=== PATIENT | female | born 1940 | race Caucasian/White ===

== ENCOUNTER → 2018-03-10 11:48 | Outpatient (CLI) | payer MEDICARE, OTHER, SELFPAY ==
[2018-03-10 12:15] LABS: Basophils % 0.2 % (0.1-2.0); Eosinophils # 0.2 K/mm3 (0.0-0.4); Eosinophils % 3.4 % (0.1-12.0); Hematocrit 40.7 % (37.0-47.0); Hemoglobin 12.8 g/dL (12.2-16.2); Lymphocytes # 1.5 K/mm3 (0.7-4.5); Mean Corpuscular HGB Conc 31.4 g/dL (31.8-35.4); Mean Corpuscular Hemoglobin 30.3 pg (27.0-31.2); Mean Corpuscular Volume 96.6 fl (81-99); Mean Platelet Volume 8.2 fl (7.4-10.4); Monocytes # 0.2 K/mm3 (0.1-1.0); Monocytes % 4.6 % (1.7-9.3); Neutrophils # 2.7 K/mm3 (1.8-7.8); Neutrophils % 58.7 % (37.0-80.0); Platelet Count 271 K/mm3 (142-424); Red Blood Count 4.22 M/mm3 (4.20-5.40); Red Cell Distribution Width 13.2 % (11.5-17.5); White Blood Count 4.6 K/mm3 (4.8-10.8)
[2018-03-10 12:46] LABS: Alanine Aminotransferase 19 U/L (12-78); Albumin Level 3.7 gm/dL (3.4-5.0); Albumin/Globulin Ratio 1.4 (1.1-1.8); Alkaline Phosphatase 76 U/L (46-116); Anion Gap 11.9 mEq/L (5-15); Aspartate Amino Transferase 10 U/L (15-37); Bilirubin,Total 0.3 mg/dL (0.2-1.0); Blood Urea Nitrogen 16 mg/dL (7-18); Calcium 8.7 mg/dL (8.5-10.1); Carbon Dioxide 29 mmol/L (21.0-32.0); Chloride 105 mmol/L (98-107); Chol/HDL Ratio 2.8 (1-3.5); Cholesterol 195 mg/dL (140-200); Creatinine,Serum 0.74 mg/dL (0.55-1.02); Estimated Glomerular Filt Rate 77 ml/min (>60); GFR (African American) 93 ML/MIN (>60); Globulin 2.7 gm/dl (1.3-3.2); Glucose 111 mg/dL (74-106); HDL Cholesterol 70 mg/dL (29-89); LDL Cholesterol 118 mg/dL (0-130); Potassium 3.9 mmoL/L (3.5-5.1); Sodium 142 mmol/L (136-145); Total Protein,Serum 6.4 gm/dL (6.4-8.2); Triglycerides 36 mg/dL (30-200); VLDL Cholesterol 7 mg/dL (0-40)
== END ==
PROVIDERS: Visit Provider Internal Medicine Adolescent Medicine
DX: E78.5 Hyperlipidemia, unspecified (principal); I10 Essential (primary) hypertension
CPT/HCPCS: 36415; 80053; 80061; 85025

== ENCOUNTER 2019-03-27 02:27 | Inpatient (IN) ==
[2019-03-27 03:04] LABS: Basophils % 0.4 % (0.1-2.0); Eosinophils # 0.3 K/mm3 (0.0-0.4); Eosinophils % 3.6 % (0.1-12.0); Hematocrit 43.6 % (37.0-47.0); Hemoglobin 13.7 g/dL (12.2-16.2); Lymphocytes # 2.8 K/mm3 (0.7-4.5); Mean Corpuscular HGB Conc 31.5 g/dL (31.8-35.4); Mean Corpuscular Volume 94.7 fl (81-99); Mean Platelet Volume 8.4 fl (7.4-10.4); Monocytes # 0.4 K/mm3 (0.1-1.0); Neutrophils # 4.2 K/mm3 (1.8-7.8); Neutrophils % 54.9 % (37.0-80.0); Platelet Count 316 K/mm3 (142-424); Red Cell Distribution Width 12.8 % (11.5-17.5); White Blood Count 7.7 K/mm3 (4.8-10.8)
[2019-03-27 03:18] LABS: Anion Gap 13.4 mEq/L (5-15); Blood Urea Nitrogen 16 mg/dL (7-18); Calcium 9.1 mg/dL (8.5-10.1); Carbon Dioxide 29 mmol/L (21.0-32.0); Chloride 104 mmol/L (98-107); Glucose 120 mg/dL (74-106); Sodium 143 mmol/L (136-145); Thyroid Stimulating Hormone 4.44 uIU/ml (0.358-3.740)
--- NOTE | 2019-03-27 03:18 | Emergency Department Note ---
ED Disposition Clinical Impression: Atrial fibrillation Qualifiers: Atrial fibrillation type: unspecified Qualified Code(s): I48.91 - Unspecified atrial fibrillation Disposition: Admitted As Inpatient Condition on Discharge: Good - Critical Care Critical Care Time: No Attestation: On 03/27/19, the high probability of a clinically significant, sudden or life threatening deterioration of the following system(s) required my full and direct attention, intervention and personal management. The time I documented below is in addition to time spent performing reported procedures but includes the following listed in this critical care notation. Medical Decision Making - Medical Records Medical records reviewed: Yes: I reviewed the patient's medical records. - Rod Inquiry Pt receiving controlled substance: No Vital Signs: 03/27/19 02:27 Temperature 97.7 F Temperature Source Oral Pulse Rate [Left Radial] 145 H Respiratory Rate 17 Blood Pressure [Right Arm] 157/118 H Blood Pressure Mean [Right Arm] 131 Blood Pressure Source [Right Arm] Automatic Cuff Blood Pressure Position [Right Arm] Sitting 02 Sat by Pulse Oximetry 98 Oxygen Delivery Method Room Air - Lab Data Lab results reviewed: Yes: I reviewed the patient's lab results. Lab Results 03/27/19 02:25: WBC 7.7, RBC 4.60, Hgb 13.7, Hct 43.6, MCV 94.7, MCH 29.8, MCHC 31.5 L, RDW 12.8, Plt Count 316, MPV 8.4, Neut % (Auto) 54.9, Lymph % (Auto) 36.0, [place] % (Auto) 5.0, Eos % (Auto) 3.6, Baso % (Auto) 0.4, Neut # (Auto) 4.2, Lymph # (Auto) 2.8, [place] # (Auto) 0.4, Eos # (Auto) 0.3, Baso # (Auto) 0.0, ESR 17 03/27/19 02:25: Sodium 143, Potassium 3.4 L, Chloride 104, Carbon Dioxide 29, Anion Gap 13.4, BUN 16, Creatinine 0.83, Estimated Creat Clear 50, Estimated GFR 67, Est GFR ( Amer) 81, Glucose 120 H, Calcium 9.1, Troponin I < 0.02, C- Reactive Protein < 0.2, TSH 4.44 H, Thyroxine (T4) 9.7 Result diagrams: 03/27/19 02:25 03/27/19 02:25 Orders (Tests/Meds): ED MEDICATIONS Generic Name Dose Route Start Last Admin Trade Name Freq PRN Reason Stop Dose Admin Diltiazem HCl 5 mg 03/27/19 02:45 03/27/19 02:49 Cardizem 100mg Adv IV 04/26/19 02:44 5 mg TITR AUDELIA Administration Sodium Chloride 1,000 mls @ 999 mls/hr 03/27/19 03:00 03/27/19 02:50 Sod Chlor 0.9% 1000ml Bag IV 03/27/19 04:00 999 mls/hr .Q1H1M AUDELIA Administration Discontinued Medications Generic Name Dose Route Start Last Admin Trade Name Freq PRN Reason Stop Dose Admin Diltiazem HCl 10 mg 03/27/19 02:40 03/27/19 02:40 Cardizem 25mg/5ml Vial IV 03/27/19 02:41 10 mg ONCE ONE Administration ORDERS Category Date Time Status XR chest 2V Stat Exams 03/27/19 02:38 Taken Troponin I Q3H Lab 03/27/19 05:45 Ordered Troponin I Q3H Lab 03/27/19 08:45 Ordered Urinalysis and Microscopic Stat Lab 03/27/19 02:37 Ordered - Radiology Data #1 Image(s): Chest Image Reviewed: Yes I reviewed the patient's radiology image Preliminary Findings: Normal/NAD - ECG Data Tracing #1 Arrhythmias present: afib Ischemic changes: non-specific ST-T wave changes - Physician Consults Physician Consulted: jake Reason -: Admission Arrhythmia/Palpitations HPI - General Chief Complaint: Arrhythmia/Palpitations Stated Complaint: palpations Time Seen by Provider: 03/27/19 03:18 Mode of Arrival: Ambulatory Source of Information: Patient, Spouse, Medical Record Limitations: No Limitations - History of Present Illness HPI narrative: new onset of palpitation which awoke pt MD complaint: rapid heart beat, irregular heart beat Onset (ago): hour(s) Duration: constant Severity: moderate Context: awoke with symptoms Associated symptoms: denies other symptoms - Related Data Home Medications Medication Instructions Recorded Confirmed aspirin 81 mg tablet,delayed 81 mg PO QDAY 04/06/17 03/27/19 release atenolol 50 mg tablet 50 mg PO QDAY 01/01/18 12/22/19 Benzonatate [Benzonatate 100mg 100 mg PO DAILY 03/27/19 03/27/19 cap] Fluticasone Propionate 16 gm NOSTRIL-B NEEDED PRN 03/27/19 03/27/19 Omeprazole 20 mg PO DAILY 03/27/19 03/27/19 levoFLOXacin [Levaquin 500mg 500 mg PO DAILY 03/27/19 03/27/19 tab] Allergies Allergy/AdvReac Type Severity Reaction Status Date / Time Sulfa (Sulfonamide Allergy Unknown Verified 03/27/19 02:47 Antibiotics) [SULFA (SULFONAMIDE ANTIBIOTICS)] Penicillins Allergy Verified 03/27/19 02:47 [facility] History - Hepatitis A Screen Drug use history?: No High risk sexual behaviors?: No History of sexually transmitted infection?: No Currently employed?: No Childcare worker?: No Do you have indoor plumbing?: Yes Do you have electricity?: Yes Attestation statement:: This patient has been screened for Hepatitis A risk factors. I have reviewed the patient's past medical history: Yes Medical History: Reports:: Gastroesophageal Reflux Disease(GERD), Hypertension Other Medical History: Reports: Arthritis Other Surgeries: Yes: Other (kidney stone ) - Social History Smoking Status: Never smoker Alcohol Intake: never Occupational Status: retired ROS Obtained: Yes All systems reviewed & no additional complaints - Constitutional Constitutional: Denies fever(s) - Eyes Eyes: Denies change in vision - ENT Ears, Nose, Mouth, and Throat: Denies sore throat - Cardiovascular Cardiovascular: Denies chest pain, Denies dyspnea, Reports rapid heart rate - Respiratory Respiratory: No cough - Gastrointestinal Gastrointestingal: Denies: abdominal pain - Genitourinary Female Genitourinary: Denies hematuria - Musculoskeletal Musculoskeletal: Denies joint pain, Denies joint swelling - Integumentary/Breasts Skin/Breast: Denies rash - Neurologic Neurologic: Denies seizure-like activity Physical Exam - General General appearance: alert, in no apparent distress - Head Head exam: normocephalic - Eye Eye exam: Present: PERRL, EOMI. Absent: scleral icterus - ENT ENT exam: Present: mucous membranes dry - Neck Neck exam: Present: full ROM, trachea midline - Respiratory Respiratory exam: Present: normal lung sounds bilaterally, respiratory distress - Cardiovascular Cardiovascular exam: Present: irregular rhythm, systolic murmur, +S4 - Abdominal Exam Abdominal exam: Present: soft - Extremities Exam Extremities exam: Present: full ROM - Neurological Exam Neurological exam: Present: alert, oriented X3, CN II-XII intact - Psychiatric Psychiatric exam: Present: normal affect - Skin Skin exam: Absent: rash
[2019-03-27 03:24] LABS: C-Reactive Protein < 0.2 mg/dL (0.0-0.9)
[2019-03-27 03:27] LABS: Erythrocyte Sedimentation Rate 17 mm/hr (0-30)
--- NOTE | 2019-03-27 08:55 | History & Physical Report ---
*Admission Date: 03/27/19 *Chief complaint: Chest tightness and palpitation *History of present illness: 78-year-old extremely healthy white female who was in her normal state of health over the past week until I saw her Thursday and diagnosed her with cystitis and upper respiratory infection. Placed on levofloxacin for the cystitis and she felt very well over the next couple of days. In fact she notes her throat feels better as well. Went to bed last night around 11 PM feeling normally, but was awakened around 1:30 AM with chest tightness and pain and had a rapid heart rate. [place] extremely unwell and presented to the emergency department. In the ER was found to have atrial fibrillation with rapid ventricular response. Placed on diltiazem drip, transferred to the stepdown unit. This morning she feels better as her heart rate is down in the 80-90 range. Remains in atrial fibrillation. Denies any recent alcohol intake. Denies changes in cardiac function, swelling, pain, or palpitations other than the events of this morning. Has been through a lot of stress with the of a close family member this week. [facility] History I have reviewed the patient's past medical history: Yes Medical History: Reports:: Gastroesophageal Reflux Disease(GERD), Hypertension Denies:: Cancer, Diabetes Mellitus Type 1, Diabetes Mellitus Type 2 *Have you ever received a pneumonia vaccine?: No *Have you received a flu vaccine this season?: No Other Medical History: Reports: Arthritis Comment:: History of pericardial effusion in 2011 but asymptomatic since that time. Negative nuclear medicine stress testing done secondary to dyspnea on exertion in 2017 Laterality Cases: Bilateral: Tonsillectomy Other Surgeries: Yes: Colonoscopy, Other (kidney stone ) - *Social History Educational Level: Completed High School Smoking Status: Never smoker Alcohol Intake: current Alcohol Intake Frequency:: a few times a month *Occupational Status:: retired Housing: house Household Members: spouse *Travel in the last 8 weeks: None Family Hx:: Anemia, Cancer, Hypertension, Kidney Disease, Tuberculosis Review of Systems - Review of Systems Review of systems:: pertinent systems reviewed and negative unless documented below Patient feels completely normal this morning. 10 point review of systems reviewed and negative. - *Neurologic Denies seizure-like activity Meds Home Medications Medication Instructions Recorded Confirmed Type aspirin 81 mg tablet,delayed 81 mg PO QDAY 04/06/17 03/27/19 History release atenolol 50 mg tablet 50 mg PO QDAY 04/06/17 03/27/19 History Benzonatate [Benzonatate 100mg 100 mg PO Q8 03/27/19 03/27/19 History cap] Fluticasone Propionate 16 gm NOSTRIL-B NEEDED PRN 03/27/19 03/27/19 History Omeprazole 20 mg PO DAILY 03/27/19 03/27/19 History Psyllium Husk [Metamucil] 425 gm PO DAILY 03/27/19 03/27/19 History levoFLOXacin [Levaquin 500mg 500 mg PO DAILY 03/27/19 03/27/19 History tab] Allergies Allergy/AdvReac Type Severity Reaction Status Date / Time Penicillins Allergy Intermediate EDEMA Verified 03/27/19 05:23 Sulfa (Sulfonamide Allergy Unknown Verified 03/27/19 05:23 Antibiotics) [SULFA (SULFONAMIDE ANTIBIOTICS)] Exam Vital signs and Labs for Last 24 Hours: Temp Pulse Resp BP Pulse Ox 98.4 F 100 H 18 132/69 97 03/27/19 07:00 03/27/19 07:00 03/27/19 07:00 03/27/19 07:00 03/27/19 07:00 Laboratory Results - last 24 hr 03/27/19 02:25: WBC 7.7, RBC 4.60, Hgb 13.7, Hct 43.6, MCV 94.7, MCH 29.8, MCHC 31.5 L, RDW 12.8, Plt Count 316, MPV 8.4, Neut % (Auto) 54.9, Lymph % (Auto) 36.0, [place] % (Auto) 5.0, Eos % (Auto) 3.6, Baso % (Auto) 0.4, Neut # (Auto) 4.2, Lymph # (Auto) 2.8, [place] # (Auto) 0.4, Eos # (Auto) 0.3, Baso # (Auto) 0.0, ESR 17 03/27/19 02:25: Sodium 143, Potassium 3.4 L, Chloride 104, Carbon Dioxide 29, Anion Gap 13.4, BUN 16, Creatinine 0.83, Estimated Creat Clear 50, Estimated GFR 67, Est GFR ( Amer) 81, Glucose 120 H, Calcium 9.1, Troponin I < 0.02, C- Reactive Protein < 0.2, TSH 4.44 H, Thyroxine (T4) 9.7 03/27/19 05:45: Troponin I 0.03 I & O for Last 24 hours: Intake & Output 03/24/19 03/25/19 03/26/19 03/27/19 11:59 11:59 11:59 11:59 Intake Total 240 / 240 Balance 240 / 240 Weight 147 lb 9 oz - Constitutional no acute distress, thin Comments: Appears younger than stated age - *Routine HEENT Exam Head: Present: normocephalic Eye: Present: EOMI, PERRL ENT: Present: mucous membranes moist - *Routine Neck Exam Present: supple. Absent: lymphadenopathy - *Routine Respiratory Exam Present: CTA bilaterally - *Routine Cardiovascular Exam Present: Normal S1, Normal S2, irregular rhythm - *Routine Abdominal Exam Present: soft, normoactive bowel sounds. Absent: tenderness - *Routine Extremities Exam Absent: cyanosis, clubbing, edema - *Routine Skin Exam Present: warm. Absent: rash - *Routine Neurological Exam Present: alert, oriented X3 - Detailed Eye Exam Eyelids: Left normal inspection Assessment and Plan (1) Atrial fibrillation Current visit: Yes Status: Acute Qualifiers: Atrial fibrillation type: unspecified Qualified Code(s): I48.91 - Unspecified atrial fibrillation Category: Medical Code(s): I48.91 - Unspecified atrial fibrillation Rate controlled currently. I have given orders to nursing staff in regards to transitioning to p.o. Cardizem if patient transitions into sinus rhythm. Begin anticoagulation therapy with Eliquis today. Echocardiogram tomorrow given her history of pericardial effusion although clinically she has no signs or symptoms and EKG is not indicative of this problem. Reviewed thyroid labs, electrolytes. Add vitamin B12 levels to lab.
--- NOTE | 2019-03-27 08:57 | Electrocardiograph Report ---
APPROVED REPORT Exam: Resting ECG HR:149 bpm ECG Measurements Heart Rate 149 AXES QRSd 78 QRS 56 QT 256 T247 QTc 403 <Conclusion> Atrial fibrillation with rapid ventricular response STTW changes secondary to rate Abnormal ECG Electronically signed by : Allen Love, 03/27/2019 08:57:22
[2019-03-27 09:17] LABS: Anion Gap 14.6 mEq/L (5-15); Calcium 8.6 mg/dL (8.5-10.1)
[2019-03-27 09:21] LABS: Basophils % 0.3 % (0.1-2.0); Eosinophils # 0.1 K/mm3 (0.0-0.4); Eosinophils % 1.5 % (0.1-12.0); Hematocrit 41.1 % (37.0-47.0); Hemoglobin 13.5 g/dL (12.2-16.2); Lymphocytes # 1.5 K/mm3 (0.7-4.5); Lymphocytes % 23.7 % (10-50); Mean Corpuscular HGB Conc 32.8 g/dL (31.8-35.4); Mean Corpuscular Volume 95.2 fl (81-99); Mean Platelet Volume 8.7 fl (7.4-10.4); Monocytes # 0.3 K/mm3 (0.1-1.0); Monocytes % 4.4 % (1.7-9.3); Neutrophils # 4.5 K/mm3 (1.8-7.8); Neutrophils % 70.1 % (37.0-80.0); Platelet Count 300 K/mm3 (142-424); Red Blood Count 4.31 M/mm3 (4.20-5.40); Red Cell Distribution Width 12.8 % (11.5-17.5); White Blood Count 6.4 K/mm3 (4.8-10.8)
--- NOTE | 2019-03-27 10:29 | Pharmacy Consult Notes ---
[facility] Pharmacy VTE Monitoring - Patient Demographics Admission date: 03/27/19 Report Date: 03/27/19 Time: 10:28 Allergies/Adverse Reactions: Patient Allergies Penicillins Allergy (Intermediate, Verified 03/27/19 05:23) EDEMA Sulfa (Sulfonamide Antibiotics) [SULFA (SULFONAMIDE ANTIBIOTICS)] Allergy (Unknown, Verified 03/27/19 05:23) Height: 1.65 m Weight: 66.933 kg Patient Problems: Current Active Problems Atrial fibrillation (Acute) - VTE Risk Labs: VTE Related Lab Results Hgb 13.5 g/dL (12.2-16.2) 03/27/19 08:45 Hct 41.1 % (37.0-47.0) 03/27/19 08:45 Plt Count 300 K/mm3 (142-424) 03/27/19 08:45 BUN 12 mg/dL (7-18) 03/27/19 08:45 Creatinine 0.87 mg/dL (0.55-1.02) 03/27/19 08:45 Estimated Creat Clear 51 mL/min (50-200) 03/27/19 08:45 VTE Score: 3 VTE Risk Level: Low Risk - Prophylaxis VTE Prophylaxis Ordered?: Yes Types of VTE Prophylaxis: TEDS Knee High, Pharmacological (ELIQUIS) Location of Applied Device: Bilateral Lower Extremeties Pharmacologic Type: Other (ELIQUIS)
[2019-03-27 10:32] LABS: Microscopic, Urine URINE MICROSCOPIC (MICROSCOPIC)
[2019-03-27 10:38] LABS: Appearance,Urine CLEAR (Clear); Bilirubin,Urine Negative (Negative); Blood, Urine TRACE-I (Negative); Color,Urine YELLOW (Yellow); Glucose,Urine (UA) Negative (Negative); Ketones,Urine Negative (Negative); Leukocyte Esterase,Urine Negative (Negative); PH,Urine 7.5 (5.0-8.5); Protein,Urine Negative (Negative); Specific Gravity, Urine 1.015 (1.005-1.030); Urobilinogen,Urine 0.2 EU/dl (0.2)
[2019-03-27 10:44] LABS: WBC,Urine Occasional #/hpf (0-3)
--- NOTE | 2019-03-28 08:47 | Discharge Summary ---
General - General Admission date:: 03/27/19 Discharge date: 03/28/19 HPI HPI: 78-year-old extremely healthy white female who was in her normal state of health over the past week until I saw her Thursday and diagnosed her with cystitis and upper respiratory infection. Placed on levofloxacin for the cystitis and she felt very well over the next couple of days. In fact she notes her throat feels better as well. Went to bed last night around 11 PM feeling normally, but was awakened around 1:30 AM with chest tightness and pain and had a rapid heart rate. [place] extremely unwell and presented to the emergency department. In the ER was found to have atrial fibrillation with rapid ventricular response. Placed on diltiazem drip, transferred to the stepdown unit. This morning she feels better as her heart rate is down in the 80-90 range. Remains in atrial fibrillation. Denies any recent alcohol intake. Denies changes in cardiac function, swelling, pain, or palpitations other than the events of this morning. Has been through a lot of stress with the of a close family member this week. Hospital Course Hospital Course: Patient was admitted and converted to sinus rhythm after several hours of diltiazem infusions. Transitioned over to p.o. diltiazem yesterday and tolerated this well. Good control of heart rate and remained in sinus rhythm. She tolerated Eliquis therapy well. Echocardiogram this morning was done, preliminary report shows good ejection fraction, normal left atrial chamber size. She remains in sinus rhythm and feels much better. Plan will be to transition home with Eliquis therapy, diltiazem as prescribed instead of her beta-jennie which she was taking for migraine prophylaxis and not heart issues, and close follow-up in my office. I have also ordered a 30- day event monitor to assess whether or not she will need anticoagulation therapy on an ongoing basis. Objective Vital signs: Temp Pulse Resp BP Pulse Ox 98.2 F 70 18 124/59 L 97 03/28/19 07:51 03/28/19 08:00 03/28/19 07:51 03/28/19 07:51 03/28/19 07:51 Narrative: Patient is pleasant, talkative, alert, oriented x3. Heart rate regular without murmurs. Lungs clear. Abdomen soft, no edema. Neurologically intact. Results Labs on day of discharge: Labs from last 24 hours 03/27/19 03/27/19 03/27/19 10:24 08:45 08:45 WBC 6.4 RBC 4.31 Hgb 13.5 Hct 41.1 MCV 95.2 MCH 31.3 H MCHC 32.8 RDW 12.8 Plt Count 300 MPV 8.7 Neut % (Auto) 70.1 Lymph % (Auto) 23.7 [place] % (Auto) 4.4 Eos % (Auto) 1.5 Baso % (Auto) 0.3 Neut # (Auto) 4.5 Lymph # (Auto) 1.5 [place] # (Auto) 0.3 Eos # (Auto) 0.1 Baso # (Auto) 0.0 Sodium 144 Potassium 3.6 Chloride 106 Carbon Dioxide 27 Anion Gap 14.6 BUN 12 Creatinine 0.87 Estimated Creat Clear 51 Estimated GFR 63 Est GFR ( Amer) 77 Glucose 145 H D Calcium 8.6 Magnesium 1.7 Troponin I 0.04 Urine Color Yellow Urine Appearance Clear Urine pH 7.5 Ur Specific [place] 1.015 Urine Protein Negative Urine Glucose (UA) Negative Urine Ketones Negative Urine Blood Trace-i Urine Nitrate Negative Urine Bilirubin Negative Urine Urobilinogen 0.2 Ur Leukocyte Esterase Negative Urine RBC 3-5 Urine WBC Occasional Ur Squamous Epith Cells 3-5 Urine Bacteria None DS: Diagnosis - Discharge Diagnosis (1) Atrial fibrillation Status: Resolved Discharge Plan - Patient Discharge Instructions ACTIVITY: Continue current activity DIET: continue same diet Patient Instructions: Atrial Fibrillation, DI for Atrial Fibrillation - Follow up Plan Follow up with: Allen Love MD [Primary Care Provider] - 04/08/19 Unknown provider or service follow up:: 30-day event recorder on discharge for atrial fibrillation Disposition: Home, Self-Correction Medications: Home Medications Medication Instructions Recorded Confirmed Type aspirin 81 mg tablet,delayed 81 mg PO DAILY 04/06/17 03/27/19 History release atenolol 50 mg tablet 50 mg PO DAILY 04/06/17 03/27/19 History Benzonatate [Benzonatate 100mg 100 mg PO TID 03/27/19 03/27/19 History cap] Fluticasone Propionate 1 spray NOSTRIL-B DAILYP PRN 03/27/19 03/27/19 History Omeprazole 20 mg PO DAILY 03/27/19 03/27/19 History Psyllium Husk [Metamucil] 425 gm PO DAILY 03/27/19 03/27/19 History levoFLOXacin [Levaquin 500mg 500 mg PO DAILY 03/27/19 03/27/19 History tab] Apixaban [Eliquis 5mg tab] 5 mg PO BID #60 tab-cap 03/28/19 Rx dilTIAZem HCL [Cardizem CD 120mg 120 mg PO DAILY #30 cap 03/28/19 Rx Cap] Prescriptions/Medication Reconciliation: New dilTIAZem HCL [Cardizem CD 120mg Cap] 120 mg PO DAILY #30 cap Apixaban [Eliquis 5mg tab] 5 mg PO BID #60 tab-cap Continued Benzonatate [Benzonatate 100mg cap] 100 mg PO TID Fluticasone Propionate 1 spray NOSTRIL-B DAILYP PRN PRN Reason: congestion Discontinued Aspirin [Low Dose Aspirin EC] 81 mg PO DAILY atenoloL [Atenolol 50mg Tab] 50 mg PO DAILY Omeprazole 20 mg PO DAILY levoFLOXacin [Levaquin 500mg tab] 500 mg PO DAILY Psyllium Husk [Metamucil] 425 gm PO DAILY - Problem Reconciliation Problems Reviewed?: Yes
--- NOTE | 2019-04-03 14:38 | Electrocardiograph Report ---
APPROVED REPORT Exam: Resting ECG HR:57 bpm ECG Measurements Heart Rate 57 AXES WI 160 P 11 QRSd 82 QRS 27 QT 392 T59 QTc 381 <Conclusion> Sinus bradycardia Nonspecific T wave abnormality Abnormal ECG Electronically signed by : Allen Love, 04/03/2019 14:37:42
== END 2019-03-28 12:10 | disposition home or self-care (01) | DRG 310 ==
LOC: ER 02:27 → 2ND 03:54
PROVIDERS: ADMIT Internal Medicine Adolescent Medicine; ATTEND Internal Medicine Adolescent Medicine

== ENCOUNTER 2019-04-06 06:35 | Observation (INO) ==
--- NOTE | 2019-04-06 06:48 | Emergency Department Note ---
ED Disposition Clinical Impression: Rapid atrial fibrillation Disposition: Admitted as Observation Condition on Discharge: Fair Referrals: Allen Love MD [Primary Care Provider] - - Critical Care Critical Care Time: Yes Attestation: On 04/06/19, the high probability of a clinically significant, sudden or life threatening deterioration of the following system(s) required my full and direct attention, intervention and personal management. The time I documented below is in addition to time spent performing reported procedures but includes the following listed in this critical care notation. Total Critical Care Time: 30 Vital system(s) involved:: Circulatory Failure My critical care processes included: Assessment & monitoring of V/S, Initial and Re-exams, Data Review/Interpretation, Coordinating Care, Medication Orders and management, Documentation Medical Decision Making - Rod Inquiry Pt receiving controlled substance: No Vital Signs: 04/06/19 06:45 04/06/19 07:37 Temperature 98.2 F Temperature Source Oral Pulse Rate [Left] 148 H 88 Respiratory Rate 20 Blood Pressure [Left Arm] 153/82 H 101/71 L Blood Pressure Mean [Left Arm] 105 81 Blood Pressure Source [Left Arm] Automatic Cuff Automatic Cuff Blood Pressure Position [Left Arm] Sitting Sitting 02 Sat by Pulse Oximetry 97 97 Oxygen Delivery Method Room Air Room Air - Lab Data Lab Results 04/06/19 06:50: WBC 8.4, RBC 4.91, Hgb 14.9, Hct 46.1, MCV 93.9, MCH 30.3, MCHC 32.3, RDW 12.7, Plt Count 344, MPV 8.5, Neut % (Auto) 67.3, Lymph % (Auto) 24.5, [place] % (Auto) 4.8, Eos % (Auto) 3.2, Baso % (Auto) 0.2, Neut # (Auto) 5.7, Lymph # (Auto) 2.1, [place] # (Auto) 0.4, Eos # (Auto) 0.3, Baso # (Auto) 0.0 04/06/19 06:50: Sodium 141, Potassium 3.2 L, Chloride 103, Carbon Dioxide 26, Anion Gap 15.2 H, BUN 19 H, Creatinine 0.71, Estimated Creat Clear 47, Estimated GFR 80, Est GFR ( Amer) 97, Glucose 103, Calcium 9.0, Troponin I < 0.02 Result diagrams: 04/06/19 06:50 04/06/19 06:50 Orders (Tests/Meds): ED MEDICATIONS Generic Name Dose Route Start Last Admin Trade Name Freq PRN Reason Stop Dose Admin Acetaminophen 650 mg 04/06/19 07:31 Acetaminophen 325mg Tab PO 05/06/19 07:30 Q4HP PRN As Needed for Fever or Pain Benzonatate 100 mg 04/06/19 09:00 Tessalon Perles 100mg Capsule PO 05/06/19 08:59 TID AUDELIA Diltiazem HCl 100 mg/ Sodium 100 mls @ 5 mls/hr 04/06/19 07:06 04/06/19 06:56 Chloride IV 05/06/19 07:05 5 mls/hr .Q20H AUDELIA Administration Sodium Chloride 1,000 mls @ 50 mls/hr 04/06/19 07:45 Sod Chlor 0.9% 1000ml Bag IV 05/06/19 07:44 .Q20H AUDELIA Non-Formulary Medication 5 mg 04/06/19 09:00 Apixaban [Eliquis 5mg Tab] PO 05/06/19 08:59 BID AUDELIA Ondansetron HCl 4 mg 04/06/19 07:31 Zofran 4mg/2ml Vial IV 05/06/19 07:30 Q8HP PRN Nausea Discontinued Medications Generic Name Dose Route Start Last Admin Trade Name Freq PRN Reason Stop Dose Admin Diltiazem HCl 10 mg 04/06/19 06:51 04/06/19 06:55 Cardizem 25mg/5ml Vial IV 04/06/19 06:52 10 mg ONCE ONE Administration ORDERS Category Date Time Status Troponin I Q3H Lab 04/06/19 10:15 Ordered Troponin I Q3H Lab 04/06/19 13:15 Ordered - ECG Data Tracing #1 EKG interpreted by Carlos Arroyo MD: Rhythm: Atrial fibrillation with rapid ventricular response Rate: [place]: normal Ectopy: none Conduction: normal ST Segment Changes: Anterior, inferior, lateral depression T Wave Changes: none Q Waves: none No evidence of acute ischemia or injury - Physician Consults Physician Consulted: Alexis Love Time: 07:00 Reason -: Admission Comment/Response: Agrees to admit the patient to the hospital. We discussed the patient's clinical information, including history, exam, laboratory and radiology results and ED course. Per hospital procedure, I will write temporary bridge inpatient orders on the patient. Specific orders requested by the admitting physician: Continue Cardizem drip - Reevaluation(s) Time: 07:25 Reevaluation #1: Heart rate 80s to 90s, still in atrial fibrillation. States back and jaw feel "good". Medical Decision Narrative: 7:38 AM: Discussed with Dr. Love. He says that he believes the patient has a screw driver operator at [facility], Dr. Mendoza, that she is attached to and she may want to be transferred there. I spoke with the patient about this and she tells me she does not have a screw driver operator at [facility]. She would prefer to stay here and see Dr. Douglas for cardiology General Adult HPI - General Stated complaint: Rapid heart rate,pain in jaw and upper back Time Seen by Provider: 04/06/19 06:47 - History of Present Illness HPI narrative: Complains of palpitations, "heart jumping around", discomfort in her jaw and her back and feeling unwell all over that started about 5 AM. She was just in the hospital March 27 through March 29 for new onset atrial fibrillation. She presented in rapid atrial fibrillation at that time and was controlled with diltiazem bolus and drip and converted while she was in the hospital to sinus rhythm. She was discharged with a 30-day event monitor. Aspirin was stopped and Eliquis was started. She had been on a beta-jennie for migraines, that was stopped and Cardizem was started. She was doing well until this morning. She took Cardizem 2 hours early when her symptoms started today but did not improve. She has not yet taken her Eliquis today. - Related Data Home Medications Medication Instructions Recorded Confirmed Benzonatate [Benzonatate 100mg 100 mg PO TID 03/27/19 04/06/19 cap] Fluticasone Propionate 1 spray NOSTRIL-B DAILYP PRN 03/27/19 04/06/19 Apixaban [Eliquis 5mg tab] 5 mg PO BID 04/06/19 04/06/19 dilTIAZem HCL [Cardizem CD 120mg 120 mg PO DAILY 04/06/19 04/06/19 Cap] Allergies Allergy/AdvReac Type Severity Reaction Status Date / Time Penicillins Allergy Intermediate EDEMA Verified 03/27/19 05:23 Sulfa (Sulfonamide Allergy Unknown Verified 03/27/19 05:23 Antibiotics) [SULFA (SULFONAMIDE ANTIBIOTICS)] [facility] History - Hepatitis A Screen Attestation statement:: This patient has been screened for Hepatitis A risk factors. I have reviewed the patient's past medical history: Yes Medical History: Reports:: Gastroesophageal Reflux Disease(GERD), Hypertension Denies:: Cancer, Diabetes Mellitus Type 1, Diabetes Mellitus Type 2 Other Medical History: Reports: Arthritis Comment: History of pericardial effusion in 2011 but asymptomatic since that time. Negative nuclear medicine stress testing done secondary to dyspnea on exertion in 2017 Laterality Cases: Bilateral: Tonsillectomy Other Surgeries: Yes: Colonoscopy, Other (kidney stone ) - Social History Smoking Status: Never smoker Alcohol Intake: current Alcohol Intake Frequency:: a few times a month Occupational Status: retired Housing: house Household Members: spouse Family Hx:: Anemia, Cancer, Hypertension, Kidney Disease, Tuberculosis ROS Obtained: Yes All systems reviewed & no additional complaints - Constitutional Constitutional: Denies fever(s) - Cardiovascular Cardiovascular: Reports chest pain, Reports palpitations, Reports radiating jaw, neck or arm pain - Respiratory Respiratory: Yes cough - Gastrointestinal Gastrointestingal: Reports: diarrhea, vomiting Comments: Had a stomach virus the past couple of days, states she is just getting over that, has also Physical Exam - General General appearance: alert, in no apparent distress - Head Head exam: atraumatic, normocephalic - Eye Eye exam: Present: normal appearance, EOMI - ENT ENT exam: Present: mucous membranes moist - Neck Neck exam: Present: normal inspection, trachea midline - Chest Chest inspection: Present: normal inspection, symmetric chest wall rise - Respiratory Respiratory exam: Present: normal lung sounds bilaterally. Absent: respiratory distress - Cardiovascular Cardiovascular exam: Present: tachycardia, irregular rhythm, normal heart sounds - Abdominal Exam Abdominal exam: Present: soft, normal bowel sounds. Absent: distention, tenderness - Extremities Exam Extremities exam: Present: normal inspection. Absent: calf tenderness - Neurological Exam Neurological exam: Present: alert, oriented X3 - Psychiatric Psychiatric exam: Present: normal affect, normal mood - Skin Skin exam: Present: warm, dry
[2019-04-06 07:11] LABS: Basophils % 0.2 % (0.1-2.0); Eosinophils # 0.3 K/mm3 (0.0-0.4); Eosinophils % 3.2 % (0.1-12.0); Hematocrit 46.1 % (37.0-47.0); Hemoglobin 14.9 g/dL (12.2-16.2); Lymphocytes # 2.1 K/mm3 (0.7-4.5); Lymphocytes % 24.5 % (10-50); Mean Corpuscular HGB Conc 32.3 g/dL (31.8-35.4); Mean Corpuscular Volume 93.9 fl (81-99); Mean Platelet Volume 8.5 fl (7.4-10.4); Monocytes # 0.4 K/mm3 (0.1-1.0); Monocytes % 4.8 % (1.7-9.3); Neutrophils # 5.7 K/mm3 (1.8-7.8); Neutrophils % 67.3 % (37.0-80.0); Platelet Count 344 K/mm3 (142-424); Red Blood Count 4.91 M/mm3 (4.20-5.40); Red Cell Distribution Width 12.7 % (11.5-17.5); White Blood Count 8.4 K/mm3 (4.8-10.8)
[2019-04-06 07:21] LABS: Anion Gap 15.2 mEq/L (5-15); Blood Urea Nitrogen 19 mg/dL (7-18); Carbon Dioxide 26 mmol/L (21.0-32.0); Chloride 103 mmol/L (98-107); Glucose 103 mg/dL (74-106); Sodium 141 mmol/L (136-145)
--- NOTE | 2019-04-06 09:25 | History & Physical Report ---
*Admission Date: 04/06/19 *Chief complaint: Recurrent palpitations *History of present illness: Complains of palpitations, "heart jumping around", discomfort in her jaw and her back and feeling unwell all over that started about 5 AM. She was just in the hospital March 27 through March 29 for new onset atrial fibrillation. She presented in rapid atrial fibrillation at that time and was controlled with diltiazem bolus and drip and converted while she was in the hospital to sinus rhythm. She was discharged with a 30-day event monitor. Aspirin was stopped and Eliquis was started. She had been on a beta-jennie for migraines, that was stopped and Cardizem was started. She was doing well until this morning. She took Cardizem 2 hours early when her symptoms started today but did not improve. She has not yet taken her Eliquis today. Above note per ER physician. Agree with history as above. During previous hospitalization echocardiogram showed normal left atrial size and preserved left ventricular function. Patient has been doing well over the past week. Of note she saw Dr. Douglas a couple of years ago for angina, stress testing was normal and he placed her on aspirin and continued atenolol at the time which she had been taking for migraine headache prophylaxis. When I discharged her on diltiazem we discontinued atenolol last week and of note she has had no headaches. Otherwise has been feeling well until this morning. [facility] History I have reviewed the patient's past medical history: Yes Medical History: Reports:: Gastroesophageal Reflux Disease(GERD), Hypertension Denies:: Cancer, Diabetes Mellitus Type 1, Diabetes Mellitus Type 2 *Have you ever received a pneumonia vaccine?: No *Have you received a flu vaccine this season?: No Other Medical History: Reports: Arthritis Laterality Cases: Bilateral: Tonsillectomy Other Surgeries: Yes: Colonoscopy, Other (kidney stone ) - *Social History Smoking Status: Never smoker Alcohol Intake: current Alcohol Intake Frequency:: a few times a month Substance Use Type: denies use *Occupational Status:: retired Housing: house Household Members: spouse *Travel in the last 8 weeks: None Family Hx:: Anemia, Cancer, Hypertension, Kidney Disease, Tuberculosis Review of Systems - Review of Systems Review of systems:: pertinent systems reviewed and negative unless documented below Meds Home Medications Medication Instructions Recorded Confirmed Type Fluticasone Propionate 1 spray NOSTRIL-B DAILYP PRN 12/22/19 01/01/20 History Apixaban [Eliquis 5mg tab] 5 mg PO BID 04/06/19 04/06/19 History dilTIAZem HCL [Cardizem CD 120mg 120 mg PO DAILY 04/06/19 04/06/19 History Cap] Allergies Allergy/AdvReac Type Severity Reaction Status Date / Time Penicillins Allergy Intermediate EDEMA Verified 03/27/19 05:23 Sulfa (Sulfonamide Allergy Unknown Verified 03/27/19 05:23 Antibiotics) [SULFA (SULFONAMIDE ANTIBIOTICS)] Exam Vital signs and Labs for Last 24 Hours: Temp Pulse Resp BP Pulse Ox 97.8 F 117 H 16 122/73 97 04/06/19 08:26 04/06/19 08:26 04/06/19 08:26 04/06/19 08:26 04/06/19 08:26 Laboratory Results - last 24 hr 04/06/19 06:50: WBC 8.4, RBC 4.91, Hgb 14.9, Hct 46.1, MCV 93.9, MCH 30.3, MCHC 32.3, RDW 12.7, Plt Count 344, MPV 8.5, Neut % (Auto) 67.3, Lymph % (Auto) 24.5, [place] % (Auto) 4.8, Eos % (Auto) 3.2, Baso % (Auto) 0.2, Neut # (Auto) 5.7, Lymph # (Auto) 2.1, [place] # (Auto) 0.4, Eos # (Auto) 0.3, Baso # (Auto) 0.0 04/06/19 06:50: Sodium 141, Potassium 3.2 L, Chloride 103, Carbon Dioxide 26, Anion Gap 15.2 H, BUN 19 H, Creatinine 0.71, Estimated Creat Clear 47, Estimated GFR 80, Est GFR ( Amer) 97, Glucose 103, Calcium 9.0, Troponin I < 0.02 I & O for Last 24 hours: Intake & Output 04/03/19 04/04/19 04/05/19 04/06/19 11:59 11:59 11:59 11:59 Weight 141 lb 8 oz Narrative: Patient is pleasant, alert, oriented x3. Heart rate in the mid 90s in atrial fibrillation. Blood pressure acceptable. Good distal tissue perfusion, no edema. Lungs clear. Heart rate irregular, no murmur noted. Abdomen soft and nontender. No edema noted. Neurologic exam intact. Assessment and Plan (1) Rapid atrial fibrillation Current visit: Yes Status: Acute Category: Medical Code(s): I48.91 - Unspecified atrial fibrillation Agree with admission on drip, rates now controlled and she feels much better. Continue anticoagulation. Add low-dose metoprolol. Cardiology consultation.
--- NOTE | 2019-04-06 10:19 | Pharmacy Consult Notes ---
[facility] Pharmacy VTE Monitoring - Patient Demographics Admission date: 04/05/19 Report Date: 04/06/19 Time: 10:18 Allergies/Adverse Reactions: Patient Allergies Penicillins Allergy (Intermediate, Verified 03/27/19 05:23) EDEMA Sulfa (Sulfonamide Antibiotics) [SULFA (SULFONAMIDE ANTIBIOTICS)] Allergy (Unknown, Verified 03/27/19 05:23) Height: 1.52 m Weight: 64.183 kg Patient Problems: Current Active Problems Rapid atrial fibrillation (Acute) - VTE Risk Labs: VTE Related Lab Results Hgb 14.9 g/dL (12.2-16.2) 04/06/19 06:50 Hct 46.1 % (37.0-47.0) 04/06/19 06:50 Plt Count 344 K/mm3 (142-424) 04/06/19 06:50 BUN 19 mg/dL (7-18) H 04/06/19 06:50 Creatinine 0.71 mg/dL (0.55-1.02) 04/06/19 06:50 Estimated Creat Clear 47 mL/min (50-200) 04/06/19 06:50 Was VTE Risk Assessment Performed: Yes VTE Score: 1 VTE Risk Level: Very Low Risk Clinical Trial Participant: No - Prophylaxis VTE Prophylaxis Ordered?: Yes Types of VTE Prophylaxis: TEDS Knee High, Pharmacological Pharmacologic Type: Other (ELIQUIS)
--- NOTE | 2019-04-07 08:00 | Consult Report ---
History of Present Illness Consult date: 04/07/19 Requesting physician: Joshua Espinoza Consult reason: atrial fibrillation Chief complaint: A. fib with RVR Additional Medical History:: 1. Atrial fibrillation with rapid ventricular response, 2 episodes, 03/2019 and 04/2019 A. Echocardiogram, 03/2019, preliminary report shows normal LV function. Official report pending. 2. History of exercise stress test 2017, positive for chest pain and EKG changes of [address] segment depression but no reversible ischemia on Myoview imaging 3. History of GERD History of present illness: 79-year-old white female admitted for atrial fibrillation with a rapid ventricular response with associated back pain and jaw discomfort that resolved with control of heart rate during this hospitalization. Patient was recently hospitalized last week for similar episode and converted with IV Cardizem. Patient previously had been taking beta-jennie for history of migraine headaches but was recently switched to calcium channel jennie due to atrial fibrillation responding to IV Cardizem. Patient denies any history of hypertension, hyperlipidemia, tobacco use or family history of heart disease. Troponins normal x2 with third troponin elevated but within normal limits. EKG on admission shows atrial fibrillation with a rapid ventricular response with ST segment depression in the inferolateral leads that resolved once heart rate and rhythm back to sinus rhythm with controlled rate. Patient relates some respiratory issues recently and GI upset surrounding both episodes of A. fib. Remote history of stress testing in 2017 with development of chest pain during stress with [address] segment depression inferiorly but no evidence of ischemia on Myoview imaging. Patient related that she only had chest pain when walking up an incline with her in a certain area. She discontinued that activity and had no chest pain until the 2 episodes of A. fib recently. [facility] History Medical History: Reports:: Atrial Fibrillation, Gastroesophageal Reflux Disease(GERD), Hypertension Denies:: Cancer, Diabetes Mellitus Type 1, Diabetes Mellitus Type 2 *Have you ever received a pneumonia vaccine?: No (refuses) *Have you received a flu vaccine this season?: No (refuses) Other Medical History: Reports: Arthritis Laterality Cases: Bilateral: Tonsillectomy Other Surgeries: Yes: Colonoscopy, Other (kidney stone ) - *Social History Smoking Status: Never smoker Alcohol Intake: never Alcohol Intake Frequency:: a few times a month Substance Use Type: denies use *Occupational Status:: retired Housing: house Household Members: spouse *Travel in the last 8 weeks: None Family Hx:: Anemia, Cancer, Hypertension, Kidney Disease, Tuberculosis Meds Home Medications Medication Instructions Recorded Confirmed Type Apixaban [Eliquis 5mg tab] 5 mg PO BID 04/06/19 04/06/19 History Fluticasone Propionate 2 spry INHALATION DAILY 04/06/19 04/06/19 History Omeprazole 20 mg PO DAILYP PRN 04/06/19 04/06/19 History dilTIAZem HCL [Cardizem CD 120mg 120 mg PO DAILY 04/06/19 04/06/19 History Cap] Allergies Allergy/AdvReac Type Severity Reaction Status Date / Time Penicillins Allergy Intermediate EDEMA Verified 03/27/19 05:23 Sulfa (Sulfonamide Allergy Unknown Verified 03/27/19 05:23 Antibiotics) [SULFA (SULFONAMIDE ANTIBIOTICS)] Review of Systems - *Cardiovascular Reports chest pain - *Respiratory Reports cough, Reports shortness of breath - *Gastrointestinal Denies abdominal pain, Denies nausea, Denies vomiting - *Genitourinary Denies blood in urine - *Musculoskeletal Reports back pain, Denies joint pain - *Neurologic Denies fainting, Denies tingling Exam Vital signs and Labs for Last 24 Hours: Temp Pulse Resp BP Pulse Ox 98.6 F 69 16 118/54 L 98 04/07/19 04:00 04/07/19 06:00 04/07/19 04:00 04/07/19 06:00 04/07/19 06:00 Laboratory Results - last 24 hr 04/06/19 10:15: Troponin I < 0.02 04/06/19 13:15: Troponin I 0.03 I & O for Last 24 hours: Intake & Output 04/04/19 04/05/19 04/06/19 04/07/19 11:59 11:59 11:59 11:59 Intake Total 120 / 120 1353 / 1353 Output Total 450 / 450 Balance 120 / 120 903 / 903 Weight 141 lb 8 oz 141 lb 7 oz - *Routine HEENT Exam Head: Present: normocephalic Eye: Present: EOMI, PERRL ENT: Present: mucous membranes moist - *Routine Neck Exam Present: supple. Absent: JVD, carotid bruit - *Routine Respiratory Exam Present: CTA bilaterally. Absent: accessory muscle use, rales, rhonchi, wheezes - *Routine Cardiovascular Exam Present: RRR. Absent: murmur, gallop, rubs - *Routine Extremities Exam Absent: edema, calf tenderness - *Routine Neurological Exam Present: alert, oriented X3, moving all extremities Assessment and Plan (1) Rapid atrial fibrillation Current visit: Yes Status: Acute Category: Medical Code(s): I48.91 - Unspecified atrial fibrillation - Assessment and plan all Dx Assessment and Plan for all problems:: 1. Atrial fibrillation with a rapid ventricular response, now converted to sinus rhythm on combination of low-dose beta-jennie and calcium channel jennie. Patient continues on Eliquis therapy without bleeding. 2. Back pain and jaw pain during episode of atrial fibrillation with rapid ventricular response this admission and prior admission last week. No evidence of acute coronary injury but patient has mixed stress test results from 2017 (chest pain and EKG changes but with no reversible ischemia on Myoview imaging). Would recommend patient undergo left heart catheterization for further coronary evaluation. Patient would like to go home and return as an outpatient for this procedure. This is reasonable as patient has no active chest pain at this time. 3. Patient can be discharged home today on metoprolol 25 mg twice daily, diltiazem 120 mg daily and hold apixaban in anticipation of left heart catheterization tomorrow.
--- NOTE | 2019-04-07 12:35 | Discharge Summary ---
General - General Admission date:: 04/06/19 Discharge date: 04/07/19 HPI HPI: Complains of palpitations, "heart jumping around", discomfort in her jaw and her back and feeling unwell all over that started about 5 AM. She was just in the hospital March 27 through March 29 for new onset atrial fibrillation. She presented in rapid atrial fibrillation at that time and was controlled with diltiazem bolus and drip and converted while she was in the hospital to sinus rhythm. She was discharged with a 30-day event monitor. Aspirin was stopped and Eliquis was started. She had been on a beta-jennie for migraines, that was stopped and Cardizem was started. She was doing well until this morning. She took Cardizem 2 hours early when her symptoms started today but did not improve. She has not yet taken her Eliquis today. Above note per ER physician. Agree with history as above. During previous hospitalization echocardiogram showed normal left atrial size and preserved left ventricular function. Patient has been doing well over the past week. Of note she saw Dr. Douglas a couple of years ago for angina, stress testing was normal and he placed her on aspirin and continued atenolol at the time which she had been taking for migraine headache prophylaxis. When I discharged her on diltiazem we discontinued atenolol last week and of note she has had no headaches. Otherwise has been feeling well until this morning. Hospital Course Hospital Course: Ms. Manning was admitted with uncontrolled A. fib and RVR. Started on diltiazem drip with good conversion to sinus rhythm. Initiated on metoprolol to gain better araceli blockade. Resumed diltiazem as well. Cardiology consulted who agreed with rate control regimen however they have concern for underlying coronary artery disease as a cause. Planning to bring the patient back in the outpatient setting for heart cath. At this time she is hemodynamically stable. Tolerating oral medications. Stable for discharge home. Denies chest pain, shortness of breath, nausea, vomiting. Still feels a little weak however vitals are within normal limits. Plan to discharge patient into the care of her daughter. Holding anticoagulation in anticipation of interventional procedure tomorrow. Objective Vital signs: Temp Pulse Resp BP Pulse Ox 98.6 F 58 L 16 139/59 L 98 04/07/19 04:00 04/07/19 10:00 04/07/19 10:00 04/07/19 10:00 04/07/19 10:00 Narrative: Patient is pleasant, alert, oriented x3. Heart rate in the mid 70s, regular Good distal tissue perfusion, no edema. Lungs clear. Heart rate irregular, no murmur noted. Abdomen soft and nontender. No edema noted. Neurologic exam intact. Results Labs on day of discharge: Labs from last 24 hours 04/06/19 13:15 Troponin I 0.03 DS: Diagnosis - Discharge Diagnosis (1) Rapid atrial fibrillation Status: Resolved Discharge Plan - Patient Discharge Instructions ACTIVITY: Continue current activity DIET: continue same diet Patient Instructions: DI for Atrial Fibrillation - Follow up Plan Follow up with: Allen Love MD [Primary Care Provider] - Dat Douglas MD [Staff Physician] - Disposition: Home, Self-Jail Medications: Home Medications Medication Instructions Recorded Confirmed Type Apixaban [Eliquis 5mg tab] 5 mg PO BID 04/06/19 04/06/19 History Fluticasone Propionate 2 spry INHALATION DAILY 04/06/19 04/06/19 History Omeprazole 20 mg PO DAILYP PRN 04/06/19 04/06/19 History dilTIAZem HCL [Cardizem CD 120mg 120 mg PO DAILY 04/06/19 04/06/19 History Cap] Metoprolol Tartrate [Lopressor 25 mg PO BID 30 Days #60 tab 04/07/19 Rx 25mg tablet] Prescriptions/Medication Reconciliation: New Metoprolol Tartrate [Lopressor 25mg tablet] 25 mg PO BID 30 Days #60 tab Continued Fluticasone Propionate 2 spry INHALATION DAILY dilTIAZem HCL [Cardizem CD 120mg Cap] 120 mg PO DAILY Omeprazole 20 mg PO DAILYP PRN PRN Reason: GERD Held Apixaban [Eliquis 5mg tab] 5 mg PO BID - Problem Reconciliation Problems Reviewed?: Yes
--- NOTE | 2019-04-08 08:10 | Electrocardiograph Report ---
APPROVED REPORT Exam: Resting ECG HR:55 bpm ECG Measurements Heart Rate 55 AXES WV 218 P 64 QRSd 86 QRS 44 QT 442 T77 QTc 422 <Conclusion> Sinus bradycardia with 1st degree AV block Nonspecific T wave abnormality Abnormal ECG Electronically signed by : Allen Love, 04/08/2019 08:10:07
--- NOTE | 2019-04-08 08:10 | Electrocardiograph Report ---
APPROVED REPORT Exam: Resting ECG HR:159 bpm ECG Measurements Heart Rate 159 AXES QRSd 84 QRS 79 QT 290 T-62 QTc 471 <Conclusion> Undetermined rhythm Marked ST abnormality, possible inferior subendocardial injury Abnormal ECG Electronically signed by : Allen Love, 04/08/2019 08:10:18
== END 2019-04-07 13:37 | disposition home or self-care (01) ==
LOC: ER 06:35 → ICU 07:40 → INTOOBSV 08:36 → 2ND 17:37
PROVIDERS: ADMIT Internal Medicine Adolescent Medicine; ATTEND Internal Medicine Adolescent Medicine
CPT/HCPCS: 36415; 80048; 84484; 85025; 87070; 87205; 93005; 96367; 96374; 99284; G0378

== ENCOUNTER → 2019-08-22 10:11 | Outpatient (CLI) | payer MEDICARE, OTHER, SELFPAY ==
--- NOTE | 2019-08-22 10:15 | MM_ITS ---
PROCEDURE: MM DIG SCREENING MAMM BI W/CAD Digital Breast Tomosynthesis Included CLINICAL INDICATION: SCREENING There is a history of breast cancer patient's mother diagnosed in her 50s. COMPARISON: DIGMAMMS MAMMOGRAM SCREEN-CRYPTOLOGICAL TECHNICIAN N/C from 12/29/1997 DIGMAMMS MAMMOGRAM SCREEN-CRYPTOLOGICAL TECHNICIAN N/C from 12/14/2007 DMSB DIG MAMM-SCREEN KANDACE from 12/29/2014 TECHNIQUE: Standard CC and MLO images and 3D Tomosynthesis was obtained. R2 CAD reviewed. FINDINGS: Mild scattered fibroglandular densities are seen throughout both breasts. There is faint arterial calcification in each breast. There is no new or suspicious lesion in either breast and no suspicious microcalcifications. IMPRESSION: Fibrofatty parenchyma with no suspicious lesions seen BI-RAD Category: 2 Benign Finding(s) FOLLOW-UP: 1YR 1 Year Follow-up (A letter has been sent to the patient regarding results of the study.) Dictated by: Dr. Toni Horton MD 08/23/2019 09:[address] Toni Horton MD in [place] 08/23/2019 09:08
--- NOTE | 2019-08-22 10:16 | XR_ITS ---
PROCEDURE: XR DEXA AXIAL SKELETON CLINICAL HISTORY: POST MENOPAUSAL COMPARISON: No exams were available for comparison FINDINGS: The right femoral neck density is 0.617 grams/centimeters sq with a T-score of -2.1 indicating osteopenia. Total left femur density is 0.619 grams/centimeters sq with a T-score of -2.6 indicating osteoporosis. L1-L4 density is 0.917 grams/centimeters sq with T-score of -1.2. IMPRESSION: Osteoporosis with high fracture risk. Treatment advised. Suggest follow-up exam in 1 year Dictated by: Rolf Skaggs MD 08/22/2019 11:44 Electronically signed by Rolf Skaggs MD in [place] 08/22/2019 11:44
== END ==
PROVIDERS: PCP Internal Medicine Adolescent Medicine; Visit Provider Internal Medicine Adolescent Medicine
DX: Z12.31 Encounter for screening mammogram for malignant neoplasm of breast (principal); Z13.820 Encounter for screening for osteoporosis; Z78.0 Asymptomatic menopausal state
CPT/HCPCS: 77063; 77067; 77080

== ENCOUNTER 2020-03-17 06:51 | Observation (INO) | payer MEDICARE, OTHER, SELFPAY ==
[2020-03-17] VITALS (13 sets, daily range): BP systolic 102–169; BP diastolic 57–118; PULSE 50–143; RESP 13–20; TEMP 36.4–36.7; O2SAT 96–98; BMI 25.0; BMI 24.1
--- NOTE | 2020-03-17 06:56 | ECG_ITS ---
APPROVED REPORT Exam: Resting ECG HR:160 bpm ECG Measurements Heart Rate 160 AXES QRSd 80 QRS 32 QT 290 T 177 QTc 473 Conclusion Atrial fibrillation with rapid ventricular response Marked ST abnormality, possible inferior subendocardial injury vs rate effect Abnormal ECG Electronically signed by : Allen Love, 03/17/2020 14:27:59
--- NOTE | 2020-03-17 07:08 | XR_ITS ---
PROCEDURE: XR CHEST PORTABLE CLINICAL HISTORY: soa COMPARISON: CR XR CHEST 2V from 03/27/2019 FINDINGS: The cardiomediastinal silhouette and pulmonary vascularity are within normal limits. The lungs are clear without infiltrates, suspicious nodules, or pleural effusions. There monitor lines overlying the chest. No acute bony abnormalities. IMPRESSION: No acute findings. Dictated by: Dr. Toni Horton MD 03/17/2020 09:44 Dr. Toni Horton MD in [place] 03/17/2020 09:44
[2020-03-17 07:15] LABS: Basophils # 0.1 K/mm3 (0-0.2); Basophils % 0.7 % (0.1-2.0); Eosinophils # 0.2 K/mm3 (0.0-0.4); Eosinophils % 3.2 % (0.1-12.0); Hematocrit 45.3 % (37.0-47.0); Hemoglobin 15.2 g/dL (12.2-16.2); Lymphocytes # 2.9 K/mm3 (0.7-4.5); Lymphocytes % 39.7 % (10-50); Mean Corpuscular HGB Conc 33.5 g/dL (31.8-35.4); Mean Corpuscular Hemoglobin 31.4 pg (27.0-31.2); Mean Corpuscular Volume 93.8 fl (81-99); Mean Platelet Volume 8.9 fl (7.4-10.4); Monocytes # 0.4 K/mm3 (0.1-1.0); Monocytes % 5.2 % (1.7-9.3); Neutrophils # 3.7 K/mm3 (1.8-7.8); Neutrophils % 51.3 % (37.0-80.0); Platelet Count 373 K/mm3 (142-424); Red Blood Count 4.83 M/mm3 (4.20-5.40); Red Cell Distribution Width 13.5 % (11.5-17.5); White Blood Count 7.2 K/mm3 (4.8-10.8)
[2020-03-17 07:17] LABS: Chloride 106 mmol/L (98-107)
[2020-03-17 07:18] LABS: Potassium 3.7 mmoL/L (3.5-5.1); Sodium 141 mmol/L (136-145)
[2020-03-17 07:21] LABS: Anion Gap 10.7 mEq/L (5-15); Blood Urea Nitrogen 18 mg/dl (7-17); Calcium 9.4 mg/dl (8.4-10.2); Carbon Dioxide 28 mmol/L (22.0-30.0); Creatinine Clearance Estimated 51 mL/min (50-200); Estimated Glomerular Filt Rate 61 ml/min (>60); GFR (African American) 73 ML/MIN (>60); Glucose 122 mg/dl (74-100); Magnesium 1.9 mg/dl (1.6-2.3)
--- NOTE | 2020-03-17 07:26 | HMH.EDGENADL ---
ED Disposition Clinical Impression: Atrial fibrillation Qualifiers: Atrial fibrillation type: unspecified Qualified Code(s): I48.91 - Unspecified atrial fibrillation Disposition: Home, Self-Care Condition on Discharge: Good Referrals: Allen Love MD [Primary Care Provider] - - Critical Care Critical Care Time: No Attestation: On 03/17/20, the high probability of a clinically significant, sudden or life threatening deterioration of the following system(s) required my full and direct attention, intervention and personal management. The time I documented below is in addition to time spent performing reported procedures but includes the following listed in this critical care notation. Medical Decision Making - Medical Records Medical records reviewed: Yes: I reviewed the patient's medical records. - Rod Inquiry Pt receiving controlled substance: No Vital Signs: 03/17/20 06:52 03/17/20 07:44 Temperature 97.9 F Temperature Source Oral Pulse Rate [Left Radial] 143 H 86 Respiratory Rate 13 Blood Pressure [Right Arm] 152/118 H 144/82 H Blood Pressure Mean [Right Arm] 129 102 Blood Pressure Source [Right Arm] Automatic Cuff Automatic Cuff Blood Pressure Position [Right Arm] Sitting Sitting 02 Sat by Pulse Oximetry 98 96 Oxygen Delivery Method Room Air Room Air - Lab Data Lab Results 03/17/20 07:00: WBC 7.2, RBC 4.83, Hgb 15.2, Hct 45.3, MCV 93.8, MCH 31.4 H, MCHC 33.5, RDW 13.5, Plt Count 373, MPV 8.9, Neut % (Auto) 51.3, Lymph % (Auto) 39.7, [place] % (Auto) 5.2, Eos % (Auto) 3.2, Baso % (Auto) 0.7, Neut # (Auto) 3.7, Lymph # (Auto) 2.9, [place] # (Auto) 0.4, Eos # (Auto) 0.2, Baso # (Auto) 0.1 03/17/20 07:00: Sodium 141, Potassium 3.7, Chloride 106, Carbon Dioxide 28, Anion Gap 10.7, BUN 18 H, Creatinine 0.90, Estimated Creat Clear 51, Estimated GFR 61, Est GFR ( Amer) 73, Glucose 122 H, Calcium 9.4, Magnesium 1.9, Troponin I < 0.01 Result diagrams: 03/17/20 07:00 03/17/20 07:00 Orders (Tests/Meds): ED MEDICATIONS Discontinued Medications Generic Name Dose Route Start Last Admin Trade Name Janusz BAILEY Reason Stop Dose Admin Metoprolol Tartrate 5 mg 03/17/20 07:11 03/17/20 07:19 Metoprolol Tartrate 5mg/5ml Vial IV 03/17/20 07:12 5 mg ONCE ONE Administration Metoprolol Tartrate 25 mg 03/17/20 07:31 03/17/20 07:39 Metoprolol Tartrate 50mg Tablet PO 03/17/20 07:32 25 mg ONCE ONE Administration ORDERS Category Date Time Status XR chest portable Stat Exams 03/17/20 07:08 Taken Troponin I Q3H Lab 03/17/20 10:15 Ordered Troponin I Q3H Lab 03/17/20 13:15 Ordered Medical Decision Narrative: The patient is a 79 year old female who presents with afib with RVR. She is hemodynamically stable. EKG shows afib with RVR with a rate in the 160s. Labs including CBC, BMP, magnesium, troponin were drawn. She was given 5 mg metoprolol with improvement in her rate to the 90s. She was given 25 mg PO metoprolol. She was observed in the ED and remained rate controlled. Her labs were unactionable. She was able to ambulate and tolerate PO and will be discharged home [facility] return precautions. General Adult HPI - General Chief complaint: Arrhythmia/Palpitations Stated complaint: Afib Time Seen by Provider: 03/17/20 06:52 Mode of Arrival: Ambulatory Limitations: No Limitations Description of Symptoms (Recalled from ER Triage Doc. by RN): States a few hours ago she started with a flare up of her A-fib, denies any chest pain, does have tightness in her back which she states she has with her A-fib - History of Present Illness HPI narrative: Patient is a 79 year old female who presents with atrial fibrillation. The patient states that she has been in afib for the last few hours. She notes palpitations but no chest pain or shortness of breath. She is on diltiazem and metoprolol at home. She has not taken her morning medications today. She is anticoagulated. No other symptoms. - R
[2020-03-17 07:38] LABS: Troponin I < 0.01 ng/ml (0.00-0.034)
--- NOTE | 2020-03-17 09:05 | PC.NURSE ---
Pt states that she has an episode of dizziness before I entered the room for DC. Pt wine consultant shows pt is still in A-fib with a HR going to 130s. MD aware and at bedside.
--- NOTE | 2020-03-17 09:11 | PC.NURSE ---
offset second press operator paging dr. gentile
--- NOTE | 2020-03-17 09:13 | PC.NURSE ---
DEBORA RUGGIERO speaking with Dr. Espinoza
[2020-03-17 10:13] LABS: Coronavirus 19 IgG Antibody Negative (Negative); Coronavirus 19 IgM Antibody Negative (Negative)
[2020-03-17 10:47] LABS: Troponin I < 0.01 ng/ml (0.00-0.034)
--- NOTE | 2020-03-17 11:13 | HMH.HP ---
*Admission Date: 03/17/20 *Chief complaint: SOA, palpitations *History of present illness: Ms. Manning is a 79-year-old female with history of A. fib on long-acting calcium channel jennie and anticoagulation. She presented to the ER last night due to worsening episode of chest tightness, shortness of breath, fatigue. On presentation she was found to be in A. fib with RVR, hemodynamically stable, normal saturations on room air. Initial work-up and treatment in the ER with IV metoprolol helped control her rate and improve her symptoms however after observation for a few hours she proceeded to go back into A. fib with RVR and medicine was consulted for admission. Patient admitted to Obs for further medical management and adjustment of home regimen for her A. fib. She denies nausea, vomiting tanya chest pain, syncope, fever. On my assessment after she arrived to the floor, her heart rate was regular as she had received long-acting metoprolol succinate approximately 30 minutes before my evaluation. at bedside. Patient pleasant on interview. [facility] History I have reviewed the patient's past medical history: Yes Medical History: Reports:: Atrial Fibrillation, Coronary Artery Disease, Gastroesophageal Reflux Disease(GERD), Hyperlipidemia, Hypertension, Kidney Stones Denies:: Cancer, Diabetes Mellitus Type 1, Diabetes Mellitus Type 2, MRSA *Have you ever received a pneumonia vaccine?: No *Have you received a flu vaccine this season?: No Other Medical History: Reports: Arthritis Laterality Cases: Bilateral: Tonsillectomy Other Surgeries: Yes: Cardiac Catheterization, Colonoscopy, Other Amputation: No Fractures: No - *Social History Smoking Status: Never smoker Alcohol Intake: never Alcohol Intake Frequency:: a few times a month Substance Use Type: denies use *Occupational Status:: retired Housing: house Household Members: spouse *Travel in the last 8 weeks: None Family Hx:: Cancer, Hyperlipidemia, Hypertension Review of Systems - Review of Systems Review of systems:: pertinent systems reviewed and negative unless documented below (14 point review of systems performed, pertinent positives and negatives as per HPI) Meds Home Medications Medication Instructions Recorded Confirmed Type Fluticasone Propionate 2 spry INHALATION DAILY 04/06/19 03/17/20 History dilTIAZem HCL [Cardizem CD 120mg 120 mg PO DAILY 04/06/19 03/17/20 History Cap] Aspirin [[place] Aspirin EC] 81 mg PO DAILY 04/08/19 03/17/20 History atorvastatin 40 mg tablet 40 mg PO HS #90 tab 05/11/19 03/17/20 Rx rivaroxaban 20 mg tablet 20 mg PO QPMWM 05/16/19 03/17/20 History alendronate 70 mg tablet 70 mg PO QWEEK tab 11/14/19 03/17/20 History metoprolol tartrate 25 mg tablet 12.5 mg PO BID tab 11/14/19 03/17/20 History Doxycycline Hyclate [Doxycycline 100 mg PO BID 03/17/20 03/17/20 History 100mg Capsule] Omeprazole [Omeprazole 20mg Tab] 20 mg PO DAILYP PRN 03/17/20 03/17/20 History Allergies Allergy/AdvReac Type Severity Reaction Status Date / Time Penicillins Allergy Intermediate EDEMA Verified 11/14/19 10:42 apixaban [From Eliquis] Allergy Mild Verified 11/14/19 10:42 Sulfa (Sulfonamide Allergy Unknown Verified 11/14/19 10:42 Antibiotics) [SULFA (SULFONAMIDE ANTIBIOTICS)] Exam Vital signs and Labs for Last 24 Hours: Temp Pulse Resp BP Pulse Ox 97.8 F 110 H 20 102/58 L 97 03/17/20 10:14 03/17/20 10:14 03/17/20 10:14 03/17/20 10:14 03/17/20 10:14 Laboratory Results - last 24 hr 03/17/20 07:00: WBC 7.2, RBC 4.83, Hgb 15.2, Hct 45.3, MCV 93.8, MCH 31.4 H, MCHC 33.5, RDW 13.5, Plt Count 373, MPV 8.9, Neut % (Auto) 51.3, Lymph % (Auto) 39.7, [place] % (Auto) 5.2, Eos % (Auto) 3.2, Baso % (Auto) 0.7, Neut # (Auto) 3.7, Lymph # (Auto) 2.9, [place] # (Auto) 0.4, Eos # (Auto) 0.2, Baso # (Auto) 0.1 03/17/20 07:00: Sodium 141, Potassium 3.7, Chloride 106, Carbon Dioxide 28, Anion Gap 10.7, BUN 18 H, Creatinine 0.90, Est
--- NOTE | 2020-03-17 11:36 | HMH.PHAINT ---
03/17/20-MED LIST COMPARED TO PHARMACY BOTTLES.
--- NOTE | 2020-03-17 12:11 | HMH.PHAVTE ---
[facility] Pharmacy VTE Monitoring - Patient Demographics Admission date: 03/17/20 Report Date: 03/17/20 Time: 12:11 Allergies/Adverse Reactions: Patient Allergies Penicillins Allergy (Intermediate, Verified 11/14/19 10:42) EDEMA apixaban [From Eliquis] Allergy (Mild, Verified 11/14/19 10:42) Sulfa (Sulfonamide Antibiotics) [SULFA (SULFONAMIDE ANTIBIOTICS)] Allergy (Unknown, Verified 11/14/19 10:42) Height: 1.65 m Weight: 65.771 kg Patient Problems: Current Active Problems Atrial fibrillation (Acute) Atrial fibrillation with RVR (Acute) HHD (hypertensive heart disease) (Chronic) HLD (hyperlipidemia) (Chronic) - VTE Risk Labs: VTE Related Lab Results Hgb 15.2 g/dL (12.2-16.2) 03/17/20 07:00 Hct 45.3 % (37.0-47.0) 03/17/20 07:00 Plt Count 373 K/mm3 (142-424) 03/17/20 07:00 BUN 18 mg/dl (7-17) H 03/17/20 07:00 Creatinine 0.90 mg/dl (0.52-1.04) 03/17/20 07:00 Estimated Creat Clear 51 mL/min (50-200) 03/17/20 07:00 Was VTE Risk Assessment Performed: No - Prophylaxis Types of VTE Prophylaxis: Pharmacological Pharmacologic Type: Other (XARELTO 20 MG QPMWM)
[2020-03-17 13:58] LABS: Troponin I < 0.01 ng/ml (0.00-0.034)
--- NOTE | 2020-03-17 18:52 | PC.NURSE ---
PT IS RESTING IN BED WITH FAMILY IN THE ROOM. ALERT AND ORIENTED X4. NO COMPLAINTS OF DISCOMFORT. PT HAS BEEN NSR ON THE MONITOR SINCE ARRIVING TO THE FLOOR FROM THE ED. PT HAS AMBULATED TO THE BATHROOM. CALLED AND STATED IF PT'S HR WAS LESS THAN 65 THIS EVENING TO HOLD BETA NAIMA. LUNG SOUNDS CLEAR. ABDOMEN SOFT /NON TENDER WITH ACTIVE BOWEL SOUNDS. EATING AND DRINKING FAIR. WILL CONTINUE TO MONITOR.
[2020-03-18] VITALS: PULSE 50
[2020-03-18 03:31] VITALS: PULSE 53; O2SAT 98
[2020-03-18 03:36] VITALS: BP 121/52; PULSE 49; RESP 16; TEMP 36.4; O2SAT 98
[2020-03-18 04:00] VITALS: PULSE 40
[2020-03-18 04:53] VITALS: BMI 23.8
[2020-03-18 07:36] VITALS: BP 133/56; PULSE 53; RESP 20; TEMP 36.5; O2SAT 100
--- NOTE | 2020-03-18 08:23 | PC.NURSE ---
[facility]
--- NOTE | 2020-03-18 08:29 | HMH.DCSUM ---
General - General Admission date:: 03/17/20 Discharge date: 03/18/20 HPI HPI: Ms. Manning is a 79-year-old female with history of A. fib on long-acting calcium channel jennie and anticoagulation. She presented to the ER last night due to worsening episode of chest tightness, shortness of breath, fatigue. On presentation she was found to be in A. fib with RVR, hemodynamically stable, normal saturations on room air. Initial work-up and treatment in the ER with IV metoprolol helped control her rate and improve her symptoms however after observation for a few hours she proceeded to go back into A. fib with RVR and medicine was consulted for admission. Patient admitted to Obs for further medical management and adjustment of home regimen for her A. fib. She denies nausea, vomiting tanya chest pain, syncope, fever. On my assessment after she arrived to the floor, her heart rate was regular as she had received long-acting metoprolol succinate approximately 30 minutes before my evaluation. at bedside. Patient pleasant on interview. Hospital Course Hospital Course: 79-year-old female admitted for A. fib with RVR. Started on metoprolol succinate at time of admission. Received 100 mg dose and tolerated this well. Had no further episodes of RVR and reports feeling better through admission. Denies any shortness of breath or chest tightness. No syncope or dizziness. Given tolerance of long-acting metoprolol, will streamline her medication regimen and transition to once a day metoprolol. Stop diltiazem and metoprolol tartrate. Discuss changes with patient, she was appreciative of the streamlined regimen. Plan for close follow-up to assess tolerance. Recommended is well that she have close follow-up with Dr. De Jesus for her reported kidney stone issue as the stress from that may be a source for the atrial fibrillation episode that she experienced. Medically stable for discharge home. Objective Vital signs: Temp Pulse Resp BP Pulse Ox 97.7 F 53 L 20 133/56 L 100 03/18/20 07:36 03/18/20 07:36 03/18/20 07:36 03/18/20 07:36 03/18/20 07:36 Narrative: - Constitutional no acute distress - *Routine HEENT Exam Head: Present: normocephalic Eye: Present: EOMI, PERRL ENT: Present: mucous membranes moist - *Routine Neck Exam Present: supple. Absent: lymphadenopathy - *Routine Respiratory Exam Present: CTA bilaterally - *Routine Cardiovascular Exam Present: RRR - *Routine Abdominal Exam Present: soft, normoactive bowel sounds. Absent: tenderness - *Routine Extremities Exam Absent: cyanosis, clubbing, edema - *Routine Skin Exam Present: warm. Absent: rash - *Routine Neurological Exam Present: alert, oriented X3 Results Labs on day of discharge: Labs from last 24 hours 03/17/20 03/17/20 03/17/20 13:15 10:15 07:00 Troponin I < 0.01 < 0.01 SARS-CoV-2 IgG Ab (Rapid) Negative SARS-CoV-2 IgM Ab (Rapid) Negative DS: Diagnosis - Discharge Diagnosis (1) Atrial fibrillation with RVR Status: Resolved (2) HHD (hypertensive heart disease) Status: Chronic (3) HLD (hyperlipidemia) Status: Chronic Discharge Plan - Patient Discharge Instructions ACTIVITY: Continue current activity DIET: continue same diet Patient Instructions: DI for Atrial Fibrillation - Follow up Plan Follow up with: Allen Love MD [Primary Care Provider] - Disposition: Home, Self-Assisted Medications: Home Medications Medication Instructions Recorded Confirmed Type Fluticasone Propionate 2 spry INHALATION DAILY 04/06/19 03/17/20 History Aspirin [[place] Aspirin EC] 81 mg PO DAILY 04/08/19 03/17/20 History atorvastatin 40 mg tablet 40 mg PO HS #90 tab 05/11/19 03/17/20 Rx rivaroxaban 20 mg tablet 20 mg PO QPMWM 05/16/19 03/17/20 History alendronate 70 mg tablet 70 mg PO QWEEK tab 11/14/19 03/17/20 History Doxycycline Hyclate [Doxycycline 100 mg PO BID
[2020-03-18 09:57] VITALS: PULSE 68
== END 2020-03-18 10:44 | disposition home or self-care (01) ==
LOC: ER 09:36 → 2ND 09:51
PROVIDERS: Emergency Medicine; Admitting Provider Internal Medicine Adolescent Medicine; Emergency Provider Emergency Medicine; PCP Internal Medicine Adolescent Medicine; Visit Provider Internal Medicine Adolescent Medicine
DX: I48.91 Unspecified atrial fibrillation (principal); I11.9 Hypertensive heart disease without heart failure; I25.10 Atherosclerotic heart disease of native coronary artery without angina pectoris; E78.5 Hyperlipidemia, unspecified; Z79.01 Long term (current) use of anticoagulants; Z79.82 Long term (current) use of aspirin; Z88.0 Allergy status to penicillin; Z88.2 Allergy status to sulfonamides; Z88.8 Allergy status to other drugs, medicaments and biological substances; Z79.899 Other long term (current) drug therapy
CPT/HCPCS: 36415; 71045; 80048; 83735; 84484; 85025; 86328; 93005; 96374; 96376; 99284; G0378

== ENCOUNTER → 2020-05-29 10:18 | Outpatient (CLI) | payer MEDICARE, OTHER, SELFPAY ==
--- NOTE | 2020-05-29 10:19 | CA_ITS ---
APPROVED REPORT EXAM: Comprehensive 2D, Doppler, and color-flow Echocardiogram Dietetic Technician: Kirti Chau RVT Ht: 5 ft 5 in Wt: 151lbs BSA: 1.76 BP: 119/42 mmHg Indications: a-fib,cad,gerd,htn,hld,hx pericardial effusion 2D Dimensions LVOT 1.85 cm (M/F) 1.5-2.5 LA Volume 30.60 mL LA Volume Index 17.48 mL/m2 (M/F) 16-34 M-Mode Dimensions RVDd 2.14 cm (0.9-2.6) LA Diam 3.73 cm (1.9-4.0) LVDd 3.96 cm (3.5-5.7) Ao Diam 2.56 cm (2.0-3.7) LVDs 2.39 cm (3.5-5.7) IVSd 1.61 cm (0.6-1.1) PWd 0.86 cm (0.6-1.1) EF (Teich) 70.70% FS 39.60% EDV (Teich) 68.30 mL TAPSE 1.79 (<1.7) ESV (Teich) 20.00 mL LV Diastology E Decel Time 187.00 (160-240 msec) E/A Ratio 0.9 MED E' 8.80 (< 7 cm/sec) E'/MED E' Ratio 8.24 (>14) LAT E' 9.20 (<10 cm/sec) E/LAT E' Ratio 7.88 (>14) Aortic Valve AO Peak GR. 9.00 mmHg Mitral Valve MV E Max Aaron. 73.00 (40-130 cm/s) MV A Velocity 82.00 (40-130 cm/s) E/A Ratio 0.88 MV Decel. Time 187.00 (160-240 ms) MV PHT 55.00 ms Pulmonary Valve PV Peak Velocity 96.00 (50-150 cm/s) Tricuspid Valve TR P. Velocity 186.00 cm/s RAP Estimate 10.00 mmHg RVSP 23.90 mmHg Left Ventricle Left atrium is mildly enlarged, left ventricle is normal size, mild concentric left ventricular hypertrophy, visually estimated ejection fraction 55% with no regional wall motion abnormality, grade 1 diastolic dysfunction seen without tissue Doppler evidence of raise left atrial pressure. Right Ventricle Right atrium and right ventricle are normal size and contractility. Aortic Valve Aortic valve is minimally thickened and fibrosed without aortic stenosis or aortic insufficiency. Mitral Valve Mitral valve leaflets are minimally thickened, there is mild mitral regurgitation. Tricuspid Valve Tricuspid valve is grossly normal, there is trace tricuspid regurgitation, tricuspid regurgitation jet velocity is inadequate for calculation of the right ventricular systolic pressure. Pulmonic Valve Pulmonic valve is poorly visualized. Great Vessels Aortic root is normal size. Inferior vena cava is normal size with normal inspiratory collapse. Pericardium Small moderate sized circumferential pericardial effusion noted without Doppler evidence of tamponade physiology. Conclusion 1. Normal left ventricular size, mild concentric left ventricular hypertrophy, visually estimated ejection fraction 55% with no regional wall motion abnormality, grade 1 diastolic dysfunction seen without tissue Doppler evidence of raise left atrial pressure. 2. Mild mitral and tricuspid regurgitation. 3. Moderate-sized pericardial effusion noted without Doppler evidence of tamponade physiology, inferior vena cava is normal size with normal inspiratory collapse. Electronically signed by : Stephon Addison, 05/29/2020 21:19:39
== END ==
PROVIDERS: PCP Internal Medicine Adolescent Medicine; Visit Provider Urology
DX: E78.2 Mixed hyperlipidemia (principal); I11.9 Hypertensive heart disease without heart failure; I25.10 Atherosclerotic heart disease of native coronary artery without angina pectoris; I48.91 Unspecified atrial fibrillation
CPT/HCPCS: 93306

== ENCOUNTER → 2020-08-29 12:41 | Outpatient (CLI) | payer MEDICARE, OTHER, SELFPAY ==
[2020-08-29 13:58] LABS: Basophils % 0.3 % (0.1-2.0); Eosinophils # 0.2 K/mm3 (0.0-0.4); Eosinophils % 3.1 % (0.1-12.0); Hematocrit 39.2 % (37.0-47.0); Lymphocytes # 2.1 K/mm3 (0.7-4.5); Lymphocytes % 37.2 % (10-50); Mean Corpuscular HGB Conc 33.2 g/dL (31.8-35.4); Mean Corpuscular Hemoglobin 30.6 pg (27.0-31.2); Mean Corpuscular Volume 92.4 fl (81-99); Mean Platelet Volume 9.1 fl (7.4-10.4); Monocytes # 0.3 K/mm3 (0.1-1.0); Monocytes % 5.4 % (1.7-9.3); Neutrophils # 3.1 K/mm3 (1.8-7.8); Platelet Count 337 K/mm3 (142-424); Red Blood Count 4.25 M/mm3 (4.20-5.40); Red Cell Distribution Width 13.5 % (11.5-17.5); White Blood Count 5.7 K/mm3 (4.8-10.8)
[2020-08-29 14:18] LABS: Alanine Aminotransferase 21 U/L (12-78); Albumin Level 4.2 g/dl (3.5-5.0); Albumin/Globulin Ratio 1.8 (1.1-1.8); Alkaline Phosphatase 57 U/L (38-126); Anion Gap 9.5 mEq/L (5-15); Aspartate Amino Transferase 31 U/L (14-36); Bilirubin,Total 1.1 mg/dl (0.2-1.3); Blood Urea Nitrogen 15 mg/dl (7-17); Carbon Dioxide 29 mmol/L (22.0-30.0); Chloride 106 mmol/L (98-107); Cholesterol 129 mg/dl (140-200); Estimated Glomerular Filt Rate 69 ml/min (>60); GFR (African American) 84 ML/MIN (>60); Globulin 2.4 g/dL (1.3-3.2); Glucose 94 mg/dl (74-100); HDL Cholesterol 66 mg/dl (40-60); Potassium 4.5 mmoL/L (3.5-5.1); Sodium 140 mmol/L (136-145); Total Protein,Serum 6.6 g/dl (6.3-8.2); Triglycerides 55 mg/dl (30-150); VLDL Cholesterol 11 mg/dL (0-40)
[2020-08-29 14:31] LABS: Direct LDL Cholesterol 46.83 mg/dL (100-129)
[2020-08-29 14:35] LABS: 25-OH Vitamin D, Total 28.3 ng/mL (30-100)
[2020-08-29 14:48] LABS: Thyroid Stimulating Hormone 1.31 uIU/mL (0.465-4.68)
== END ==
PROVIDERS: Visit Provider Internal Medicine Adolescent Medicine
DX: I48.0 Paroxysmal atrial fibrillation (principal); M81.0 Age-related osteoporosis without current pathological fracture; E78.5 Hyperlipidemia, unspecified
CPT/HCPCS: 36415; 80053; 80061; 82306; 84443; 85025

== ENCOUNTER → 2020-09-05 08:33 | Outpatient (CLI) | payer MEDICARE, OTHER, SELFPAY ==
--- NOTE | 2020-09-05 08:36 | XR_ITS ---
PROCEDURE: XR DEXA AXIAL SKELETON CLINICAL HISTORY: OSTEOPOROSIS COMPARISON: No exams were available for comparison FINDINGS: The right hip BMD is 0.60 with a T-score of -2.2. The left hip BMD is 0.576 with a T-score of -2 point. The lumbar spine BMD is 0.987 with a T-score of -0 point. IMPRESSION: This patient is considered osteoporotic according to the World Health Organization criteria. Fracture risk is high. Treatment is advised. Based on these results a follow-up exam is recommended in 1 year. Dictated by: Rolf Skaggs MD 09/05/2020 14:20 Rolf Skaggs MD in [place] 09/05/2020 14:20
== END ==
PROVIDERS: PCP Internal Medicine Adolescent Medicine; Visit Provider Internal Medicine Adolescent Medicine
DX: M81.0 Age-related osteoporosis without current pathological fracture (principal)
CPT/HCPCS: 77080

== ENCOUNTER → 2020-10-01 11:06 | Outpatient (CLI) | payer MEDICARE, OTHER, SELFPAY ==
[2020-10-01 11:17] VITALS: BP 124/58; PULSE 72; RESP 18; TEMP 36.4; O2SAT 97
[2020-10-01 11:45] VITALS: BP 134/64; PULSE 65; RESP 18; TEMP 36.4; O2SAT 97
== END ==
PROVIDERS: Visit Provider Internal Medicine Adolescent Medicine
DX: M81.0 Age-related osteoporosis without current pathological fracture (principal)
CPT/HCPCS: 96372; J0897

== ENCOUNTER → 2020-12-03 09:14 | Outpatient (CLI) | payer MEDICARE, OTHER, SELFPAY ==
--- NOTE | 2020-12-03 09:17 | CA_ITS ---
APPROVED REPORT EXAM: Comprehensive 2D, Doppler, and color-flow Echocardiogram Boat Crew Deck Hand: Deana Garner, RCS, RVS Ht: 5 ft 5 in Wt: 156lbs BSA: 1.78 BP: 128/50 mmHg Indications: Pericardial Effusiom-chronic, Hx-AFIB, CAD 2D Dimensions IVSd 1.04 cm LVEF (Visual) 69.30 % PWd 0.88 cm LA Volume 62.60 mL LVDd 4.68 cm LA Volume Index 35.20 mL/m2 (M/F) 16-34 LVDs 2.86 cm Aortic Root 2.75 cm Left Atrium 3.39 cm LVOT 1.67 cm (M/F) 1.5-2.5 M-Mode Dimensions LA Diam 3.30 cm (1.9-4.0) LVDd 5.13 cm (3.5-5.7) Ao Diam 2.76 cm (2.0-3.7) LVDs 2.91 cm (3.5-5.7) EF (Teich) 74.10% EPSs 0.22 cm FS 43.30% EDV (Teich) 125.50 mL TAPSE 1.98 (<1.7) ESV (Teich) 32.50 mL LV Diastology E Decel Time 230.00 (160-240 msec) E/A Ratio 0.82 MED E' 10.40 (< 7 cm/sec) MED A' 7.90 cm/s E'/MED E' Ratio 7.37 (>14) LAT E' 9.70 (<10 cm/sec) LAT A' 8.40 cm/s E/LAT E' Ratio 7.90 (>14) Pulm Vein s 44.00 cm/sec Pulm Vein d 24.00 cm/sec Ar-A Duration 180.00 msec Aortic Valve LVOT Max 154.00 (70-110 cm/s) LVOT VTI 34.99 cm AoV Peak Aaron. 166.00 (50-130 cm/s) AO Peak GR. 11.10 mmHg AO Mean GR. 5.30 (<5 mmHg) AO VTI 38.29 (18-25 cm) NATHAN (VTI) 2.00 (2.5-4.5 cm2) Mitral Valve MV A Velocity 93.00 (40-130 cm/s) E/A Ratio 0.82 MV Decel. Time 230.00 (160-240 ms) Pulmonary Valve PV Peak Velocity 102.00 (50-150 cm/s) Tricuspid Valve TR P. Velocity 205.00 cm/s RAP Estimate 10.00 mmHg RVSP 26.80 mmHg Left Ventricle Left atrium is mildly enlarged, left ventricle is normal size, mild concentric left ventricular hypertrophy, visually estimated ejection fraction 55% with no regional wall motion abnormality, diastolic parameters are inconclusive. Right Ventricle Right atrium and right ventricle are normal size and contractility. Aortic Valve Aortic valve is minimally thickened and fibrosed, there is no aortic stenosis or aortic insufficiency. Mitral Valve Mitral valve is grossly normal, there is mild mitral regurgitation. Tricuspid Valve Tricuspid valve grossly normal, there is mild tricuspid regurgitation, tricuspid regurgitation jet velocity is inadequate for calculation of the right ventricular systolic pressure. Pulmonic Valve Pulmonic valve is poorly visualized. Great Vessels Aortic root is normal size. Pericardium Small circumferential pericardial effusion noted. Conclusion 1. Normal left ventricular size, mild concentric left ventricular hypertrophy, visually estimated ejection fraction 55% with no regional wall motion abnormality, diastolic parameters are inconclusive. 2. Mild mitral and tricuspid rotation. 3. Small circumferential pericardial effusion noted. Electronically signed by : Stephon Addison MD 12/04/2020 07:02:53
== END ==
PROVIDERS: PCP Internal Medicine Adolescent Medicine; Visit Provider Physician Assistant
DX: E78.5 Hyperlipidemia, unspecified (principal); I11.9 Hypertensive heart disease without heart failure; I25.10 Atherosclerotic heart disease of native coronary artery without angina pectoris; I31.3 Pericardial effusion (noninflammatory)
CPT/HCPCS: 93306

== ENCOUNTER 2021-04-09 09:54 | Outpatient (CLI) | payer MEDICARE, OTHER, SELFPAY ==
[2021-04-09 10:10] VITALS: BP 124/62; PULSE 69; RESP 18; TEMP 36.4; O2SAT 98
== END 2021-04-09 10:33 | disposition home or self-care (01) ==
LOC: INF 09:55
PROVIDERS: PCP Internal Medicine Adolescent Medicine; Visit Provider Internal Medicine Adolescent Medicine
DX: M81.0 Age-related osteoporosis without current pathological fracture (principal)
CPT/HCPCS: 96372; J0897

== ENCOUNTER → 2021-06-26 10:38 | Outpatient (CLI) | payer MEDICARE, OTHER, SELFPAY ==
[2021-06-26 12:27] LABS: Alanine Aminotransferase 23 U/L (12-78); Alkaline Phosphatase 53 U/L (38-126); Aspartate Amino Transferase 32 U/L (14-36); Bilirubin,Direct 0.2 mg/dl (0.0-0.4); Bilirubin,Indirect 0.3 mg/dL (0.0-0.9); Bilirubin,Total 0.5 mg/dl (0.2-1.3); Bilirubin,Unconjugated 0.4 mg/dL (0.0-1.1)
[2021-06-26 12:28] LABS: Albumin Level 3.8 g/dl (3.5-5.0); Chol/HDL Ratio 1.9 (1-3.5); Cholesterol 138 mg/dl (140-200); HDL Cholesterol 71 mg/dl (40-60); Triglycerides 57 mg/dl (30-150); VLDL Cholesterol 11 mg/dL (0-40)
[2021-06-26 12:38] LABS: Direct LDL Cholesterol 55.88 mg/dL (100-129)
== END ==
PROVIDERS: Visit Provider Nurse Practitioner Family
DX: E78.2 Mixed hyperlipidemia (principal); I11.9 Hypertensive heart disease without heart failure; I25.10 Atherosclerotic heart disease of native coronary artery without angina pectoris; I48.91 Unspecified atrial fibrillation
CPT/HCPCS: 36415; 80061; 80076

== ENCOUNTER 2021-10-09 09:45 | Outpatient (CLI) | payer MEDICARE, OTHER, SELFPAY ==
[2021-10-09 10:10] VITALS: BP 134/73; PULSE 63; RESP 16; TEMP 36.4; O2SAT 99
== END 2021-10-09 10:20 | disposition home or self-care (01) ==
LOC: INF 09:47
PROVIDERS: PCP Internal Medicine Adolescent Medicine; Visit Provider Internal Medicine Adolescent Medicine
DX: M81.0 Age-related osteoporosis without current pathological fracture (principal)
CPT/HCPCS: 96372; J0897

== ENCOUNTER 2021-10-24 06:21 | Observation (INO) | payer MEDICARE, OTHER, SELFPAY ==
[2021-10-24] VITALS (19 sets, daily range): BP systolic 94–155; BP diastolic 50–91; PULSE 65–154; RESP 15–19; TEMP 36.4–36.9; O2SAT 96–100; BMI 26.6; BMI 26.4
--- NOTE | 2021-10-24 06:18 | ECG_ITS ---
APPROVED REPORT Exam: Resting ECG HR:129 bpm ECG Measurements Heart Rate 129 AXES QRSd 84 QRS 62 QT 226 T 95 QTc 302 Conclusion ATRIAL FIBRILLATION WITH RAPID VENTRICULAR RESPONSE NONSPECIFIC ST & T-WAVE ABNORMALITY ABNORMAL RHYTHM ECG UNCONFIRMED REPORT Electronically signed by : Allen Love MD 10/25/2021 15:36:54
--- NOTE | 2021-10-24 06:24 | XR_ITS ---
FINAL REPORT CLINICAL HISTORY: cp COMPARISON: 03/17/2020 FINDINGS: TWO-VIEW CHEST There is cardiomegaly. The mediastinum is normal. The lungs are clear. There is no pneumothorax. IMPRESSION: No acute cardiopulmonary process. Reviewed, Interpreted and Dictated by Nael Rodriguez III, MD Transcribed by Tomasa Cazares Authenticated and [facility]
[2021-10-24 06:36] LABS: Basophils % 0.4 % (0.1-2.0); Eosinophils # 0.2 K/mm3 (0.0-0.4); Eosinophils % 3.1 % (0.1-12.0); Hematocrit 44.3 % (37.0-47.0); Hemoglobin 14.6 g/dL (12.2-16.2); Lymphocytes % 33.1 % (10-50); Mean Corpuscular HGB Conc 32.9 g/dL (31.8-35.4); Mean Corpuscular Hemoglobin 31.1 pg (27.0-31.2); Mean Corpuscular Volume 94.6 fl (81-99); Mean Platelet Volume 8.7 fl (7.4-10.4); Monocytes # 0.4 K/mm3 (0.1-1.0); Monocytes % 6.2 % (1.7-9.3); Neutrophils # 3.5 K/mm3 (1.8-7.8); Neutrophils % 57.2 % (37.0-80.0); Platelet Count 394 K/mm3 (142-424); Red Blood Count 4.69 M/mm3 (4.20-5.40); White Blood Count 6.1 K/mm3 (4.8-10.8)
[2021-10-24 06:47] LABS: Coronavirus 19, PCR Not Detected (NotDetected); Influenza A, PCR Not Detected (NotDetected); Influenza B, PCR Not Detected (NotDetected)
--- NOTE | 2021-10-24 06:52 | HMH.EDCP ---
ED Disposition Clinical Impression: Atrial fibrillation with rapid ventricular response, Angina at rest Disposition: Admitted As Inpatient Condition on Discharge: Fair - Critical Care Critical Care Time: No Attestation: On , the high probability of a clinically significant, sudden or life threatening deterioration of the following system(s) required my full and direct attention, intervention and personal management. The time I documented below is in addition to time spent performing reported procedures but includes the following listed in this critical care notation. Medical Decision Making - Medical Records Medical records reviewed: Yes: I reviewed the patient's medical records. - Rod Inquiry Pt receiving controlled substance: No Vital Signs: 10/24/21 06:22 10/24/21 06:48 Temperature 98.4 F Temperature Source Oral Pulse Rate 132 H Pulse Rate [Right] 154 H Respiratory Rate 18 16 Blood Pressure 134/64 Blood Pressure [Right Arm] 155/90 H Blood Pressure Mean [Right Arm] 111 02 Sat by Pulse Oximetry 97 97 Oxygen Delivery Method Room Air - Lab Data Lab results reviewed: Yes: I reviewed the patient's lab results. Lab Results 10/24/21 06:26: WBC 6.1, RBC 4.69, Hgb 14.6, Hct 44.3, MCV 94.6, MCH 31.1, MCHC 32.9, RDW 13.0, Plt Count 394, MPV 8.7, Neut % (Auto) 57.2, Lymph % (Auto) 33.1, [place] % (Auto) 6.2, Eos % (Auto) 3.1, Baso % (Auto) 0.4, Neut # (Auto) 3.5, Lymph # (Auto) 2.0, [place] # (Auto) 0.4, Eos # (Auto) 0.2, Baso # (Auto) 0.0, ESR 6 10/24/21 06:26: Sodium 140, Potassium 3.8, Chloride 106, Carbon Dioxide 29, Anion Gap 8.8, BUN 18 H, Creatinine 0.80, Estimated Creat Clear 52, Estimated GFR 69, Est GFR ( Amer) 84, Glucose 117 H, Calcium 9.6, Troponin I < 0.01, C-Reactive Protein 0.3, Procalcitonin 0.050 10/24/21 06:26: SARS-CoV-2 (PCR) Not detected, Influenza A Untype (PCR) Not detected, Influenza Type B (PCR) Not detected Result diagrams: 10/24/21 06:26 10/24/21 06:26 Orders (Tests/Meds): ED MEDICATIONS Generic Name Dose Route Start Last Admin Trade Name Freq PRN Reason Stop Dose Admin Sodium Chloride 1,000 mls @ 999 mls/hr 10/24/21 06:30 10/24/21 06:29 Sod Chlor 0.9% 1000ml Bag IV 10/24/21 07:30 999 mls/hr .Q1H1M AUDELIA Administration Diltiazem HCl 100 mg/ Sodium 100 mls @ 10 mls/hr 10/24/21 07:15 Chloride IV 11/23/21 07:14 .Q10H AUDELIA Protocol Discontinued Medications Generic Name Dose Route Start Last Admin Trade Name Freq PRN Reason Stop Dose Admin Aspirin 324 mg 10/24/21 06:28 10/24/21 06:29 Aspirin 81mg Chewable Tablet PO 10/24/21 06:29 324 mg ONCE ONE Administration Diltiazem HCl 10 mg 10/24/21 07:13 Diltiazem 25mg/5ml Vial IV 10/24/21 07:14 ONCE ONE ORDERS Category Date Time Status XR chest 2V Stat Exams 10/24/21 06:24 Taken Brain Natriuretic Peptide Stat Lab 10/24/21 06:59 Ordered T4 (Thyroxine) Stat Lab 10/24/21 06:59 Ordered Thyroid Stimulating Hormone Stat Lab 10/24/21 06:59 Ordered Troponin I Q3H Lab 10/24/21 09:30 Ordered Troponin I Q3H Lab 10/24/21 12:30 Ordered - Radiology Data #1 Image(s): Chest Image Reviewed: Yes I reviewed the patient's radiology image Preliminary Findings: Abnormal (cm) - ECG Data Tracing #1 I reviewed this ECG and interpreted as documented below: Arrhythmias present: afib Ischemic changes: non-specific ST-T wave changes - Physician Consults Physician Consulted: denny Reason -: Pt condition Medical Decision Narrative: has angina type pain with hx of a fib and has rapid vent resp - will require admit with iv card and card eval Chest Pain HPI - General Chief Complaint: Chest Pain Stated Complaint: CP Time Seen by Provider: 10/24/21 06:52 Mode of Arrival: Ambulatory Source of Information: Patient, Medical Record Limitations: No Limitations Description of Symptoms (Recalled from ER Triage Doc. by RN): pt c/o tightness in back and jaw andrei
[2021-10-24 06:55] LABS: Anion Gap 8.8 mEq/L (5-15); Blood Urea Nitrogen 18 mg/dl (7-17); Calcium 9.6 mg/dl (8.4-10.2); Carbon Dioxide 29 mmol/L (22.0-30.0); Chloride 106 mmol/L (98-107); Creatinine Clearance Estimated 52 mL/min (50-200); Estimated Glomerular Filt Rate 69 ml/min (>60); GFR (African American) 84 ML/MIN (>60); Glucose 117 mg/dl (74-100); Potassium 3.8 mmoL/L (3.5-5.1); Sodium 140 mmol/L (136-145)
--- NOTE | 2021-10-24 06:56 | PC.NURSE ---
Pt given warm blanket, and made aware she is waiting for her scans. No other needs at this time.
[2021-10-24 07:00] LABS: C-Reactive Protein 0.3 mg/L (0-4)
--- NOTE | 2021-10-24 07:00 | PC.NURSE ---
at speaking with pt and family
[2021-10-24 07:01] LABS: Erythrocyte Sedimentation Rate 6 mm/hr (0-30)
--- NOTE | 2021-10-24 07:07 | PC.NURSE ---
paged denny @ this time
--- NOTE | 2021-10-24 07:07 | PC.NURSE ---
keysha on phone with dr baldwin
[2021-10-24 07:10] LABS: Troponin I < 0.01 ng/ml (0.00-0.034)
--- NOTE | 2021-10-24 07:10 | PC.NURSE ---
Pt gone to RAD for XRAY
--- NOTE | 2021-10-24 07:15 | PC.NURSE ---
tellers supervisor notified of pt admission and need for bed assignment.
--- NOTE | 2021-10-24 07:20 | HMH.PHAINT ---
MEDICATION RECONCILIATION COMPLETED ON PATIENT USING EXTERNAL FILL HISTORY FROM PHARMACY. -CLARENCE KIM, QUAND
--- NOTE | 2021-10-24 07:28 | PC.NURSE ---
DEBORA RUGGIERO at discussing POC with pt.
[2021-10-24 07:49] LABS: NT Pro Brain Natriuretic Pep. 552 pg/mL (0-450)
--- NOTE | 2021-10-24 07:54 | PC.NURSE ---
report called to Thu santamaria
[2021-10-24 07:57] LABS: T4 (Thyroxine) 7.7 ug/dl (5.53-11.0)
--- NOTE | 2021-10-24 07:58 | CA_ITS ---
APPROVED REPORT EXAM: Comprehensive 2D, Doppler, and color-flow Echocardiogram Cloth Handler: BASIL Barrett, RVS Ht: 5 ft 5 in Wt: 160lbs BSA: 1.80 HR: 70 bpm BP: 134/64 mmHg Rhythm: Atrial Fibrillation Indications: angina, Afib w/ RVR, HLD,HTN,small Chronic pericardial effusion without viral symptoms 2D Dimensions IVSd 0.94 cm F: 0.6-1.0 LVEF (Visual) 67.40 % PWd 0.82 cm F: 0.6 - 1.0 LA Volume 67.90 mL LVDd 4.91 cm F: 3.9 - 5.3 LA Volume Index [id number] mL/m2 (M/F) 16-34 LVDs 3.07 cm F: 2.2 - 3.5 Aortic Root 2.90 cm F: 2.7 - 3.3 Left Atrium 3.76 cm F: 2.7 - 3.8 LVOT 1.85 cm (M/F) 1.5-2.5 M-Mode Dimensions RVDd 2.34 cm (0.9-2.6) LA Diam 4.02 cm (1.9-4.0) LVDd 4.99 cm (3.5-5.7) Ao Diam 2.93 cm (2.0-3.7) LVDs 3.31 cm (3.5-5.7) IVSd 0.64 cm (0.6-1.1) PWd 0.60 cm (0.6-1.1) EF (Teich) 62.20% EPSs 0.17 cm FS 33.70% EDV (Teich) 117.70 mL TAPSE 2.00 (<1.7) ESV (Teich) 44.50 mL LV Diastology E Decel Time 203.00 (160-240 msec) E/A Ratio 2.73 MED E' 9.60 (< 7 cm/sec) MED A' 3.50 cm/s E'/MED E' Ratio 11.58 (>14) LAT E' 10.80 (<10 cm/sec) LAT A' 4.60 cm/s E/LAT E' Ratio 10.30 (>14) Pulm Vein s 23.00 cm/sec Aortic Valve LVOT Max 120.00 (70-110 cm/s) LVOT VTI 27.05 cm AoV Peak Aaron. 170.00 (50-130 cm/s) AO Peak GR. 11.60 mmHg AO Mean GR. 5.60 (<5 mmHg) AO VTI 31.94 (18-25 cm) NATHAN (VTI) 2.28 (2.5-4.5 cm2) Mitral Valve MV A Velocity 41.00 (40-130 cm/s) E/A Ratio 2.73 MV Decel. Time 203.00 (160-240 ms) MV Mean Gr. 2.50 (<2mmHg) MV PHT 60.00 ms Pulmonary Valve PV Peak Velocity 102.00 (50-150 cm/s) Tricuspid Valve TR P. Velocity 233.00 cm/s RAP Estimate 10.00 mmHg RVSP 31.70 mmHg Left Ventricle Left atrium is mildly enlarged, left ventricle normal size mild concentric left ventricular hypertrophy, estimated ejection fraction 55% with no regional wall motion abnormality. Right Ventricle Right atrium and right ventricle are normal size and contractility. Aortic Valve Aortic valve is minimally thickened and fibrosed there is no aortic stenosis aortic insufficiency. Mitral Valve Mitral valve is grossly normal, there is trace mitral regurgitation. Tricuspid Valve Tricuspid grossly normal, there is trace tricuspid regurgitation, tricuspid regurgitation jet velocity is inadequate for calculation of the right ventricular systolic pressure. Pulmonic Valve Pulmonic valve is poorly visualized. Great Vessels Aortic root is normal size. Inferior vena cava is normal size with normal inspiratory collapse. Pericardium Small pericardial effusion noted. Conclusion 1. Mildly enlarged left atrium, normal left ventricular size, mild concentric left ventricular hypertrophy, estimated ejection fraction 55% with no regional wall motion abnormality, diastolic parameters are inconclusive. 2. Trace mitral and tricuspid regurgitation. 3. Small pericardial effusion noted. 4. Inferior vena cava normal size with normal inspiratory collapse. Electronically signed by : Stephon Addison MD 10/25/2021 16:10:46
[2021-10-24 08:10] LABS: Thyroid Stimulating Hormone 3.85 uIU/mL (0.465-4.68)
--- NOTE | 2021-10-24 08:11 | PC.NURSE ---
CV lab staff at
--- NOTE | 2021-10-24 08:23 | PC.NURSE ---
Went to ED to transport pt to step down. Pt is having an echo at this time. Asked Nettie Luu RN to call house shorer for transport after echo complete.
--- NOTE | 2021-10-24 08:47 | PC.NURSE ---
dr. joesph at
--- NOTE | 2021-10-24 08:56 | P.CONPHA_ITS ---
[facility] Pharmacy VTE Monitoring - Patient Demographics Admission date: 10/24/21 Report Date: 10/24/21 Time: 08:56 Allergies/Adverse Reactions: Patient Allergies Penicillins Allergy (Intermediate, Verified 06/26/21 10:05) EDEMA apixaban [From Eliquis] Allergy (Mild, Verified 06/26/21 10:05) Sulfa (Sulfonamide Antibiotics) [SULFA (SULFONAMIDE ANTIBIOTICS)] Allergy (Unknown, Verified 06/26/21 10:05) Height: 1.65 m Weight: 72.575 kg Patient Problems: Current Active Problems Atrial fibrillation with rapid ventricular response (Acute) Angina at rest (Acute) - VTE Risk Labs: VTE Related Lab Results Hgb 14.6 g/dL (12.2-16.2) 10/24/21 06:26 Hct 44.3 % (37.0-47.0) 10/24/21 06:26 Plt Count 394 K/mm3 (142-424) 10/24/21 06:26 BUN 18 mg/dl (7-17) H 10/24/21 06:26 Creatinine 0.80 mg/dl (0.52-1.04) 10/24/21 06:26 Estimated Creat Clear 52 mL/min (50-200) 10/24/21 06:26 - Prophylaxis VTE Prophylaxis Ordered?: Yes Types of VTE Prophylaxis: TEDS Knee High Location of Applied Device: Bilateral Lower Extremeties
[2021-10-24 10:06] LABS: Troponin I < 0.01 ng/ml (0.00-0.034)
[2021-10-24 13:31] LABS: Troponin I < 0.01 ng/ml (0.00-0.034)
--- NOTE | 2021-10-24 13:37 | PC.NURSE ---
Diltiazem gtt is OFF at this time. Metoprolol Succ 100mg po given. 3rd trop is negative. Dr. Love updated.
--- NOTE | 2021-10-24 15:28 | HMH.HPDC ---
General - General Admission date:: 10/24/21 Discharge date: 10/24/21 *Admission Date: 10/24/21 *Chief complaint: Rapid heart rate *History of present illness: 81-year-old female with long history of paroxysmal A. fib who is on chronic anticoagulation and rate control with metoprolol. She has been doing very well, and has been followed by [facility] EP service who has had multiple discussions with her about the possibility of ablation with pacemaker implantation but at their last visit last year decided not to pursue this intervention because of her overall good results with rate control and ongoing anticoagulation with DOAC therapy. Yesterday she was working at her home and outside doing a lot of pressure washing of her deck and pool area. She was outside for several hours in the heat and really does not think she drink enough water. After working for many hours in the heat she spent a lot of time in the pool and states that she got quite chilled. She then went to bed and awoke this morning at 3 AM with rapid heart rates and felt that she was in A. fib with mild shortness of air. Presented to the emergency department where she was found to be in A. fib with rapid RVR and placed on a Cardizem drip. The Cardizem drip controlled her rate very quickly and she was admitted to observation for further evaluation. [facility] History I have reviewed the patient's past medical history: Yes Medical History: Reports:: Arrhythmia, Atrial Fibrillation, Cancer (skin), Coronary Artery Disease, Gastroesophageal Reflux Disease(GERD), Hyperlipidemia, Hypertension, Kidney Stones, Palpitations Denies:: Diabetes Mellitus Type 1, Diabetes Mellitus Type 2, MRSA *Have you ever received a pneumonia vaccine?: No *Have you received a flu vaccine this season?: No Other Medical History: Reports: Arthritis Laterality Cases: Bilateral: Tonsillectomy Other Surgeries: Yes: Cancer Surgery (SKIN CANCER EXCISED), Cardiac Catheterization, Colonoscopy, Skin Cancer Excision, Other Amputation: No Fractures: No - *Social History Smoking Status: Never smoker Alcohol Intake: never Alcohol Intake Frequency:: a few times a month Substance Use Type: denies use *Occupational Status:: retired Housing: house Household Members: spouse *Travel in the last 8 weeks: None Family Hx:: Cancer Review of Systems - Review of Systems Review of systems:: pertinent systems reviewed and negative unless documented below - *Neurologic Denies seizure-like activity Exam Vital signs and Labs for Last 24 Hours: Temp Pulse Resp BP Pulse Ox 97.8 F 80 16 122/63 99 10/24/21 12:00 10/24/21 14:00 10/24/21 14:00 10/24/21 14:00 10/24/21 14:00 Laboratory Results - last 24 hr 10/24/21 06:26: WBC 6.1, RBC 4.69, Hgb 14.6, Hct 44.3, MCV 94.6, MCH 31.1, MCHC 32.9, RDW 13.0, Plt Count 394, MPV 8.7, Neut % (Auto) 57.2, Lymph % (Auto) 33.1, [place] % (Auto) 6.2, Eos % (Auto) 3.1, Baso % (Auto) 0.4, Neut # (Auto) 3.5, Lymph # (Auto) 2.0, [place] # (Auto) 0.4, Eos # (Auto) 0.2, Baso # (Auto) 0.0, ESR 6 10/24/21 06:26: Sodium 140, Potassium 3.8, Chloride 106, Carbon Dioxide 29, Anion Gap 8.8, BUN 18 H, Creatinine 0.80, Estimated Creat Clear 52, Estimated GFR 69, Est GFR ( Amer) 84, Glucose 117 H, Calcium 9.6, Troponin I < 0.01, C-Reactive Protein 0.3, Procalcitonin 0.050 10/24/21 06:26: SARS-CoV-2 (PCR) Not detected, Influenza A Untype (PCR) Not detected, Influenza Type B (PCR) Not detected 10/24/21 06:26: NT-Pro-B Natriuret Pep 552 H, TSH 3.85, Thyroxine (T4) 7.7 10/24/21 09:17: Troponin I < 0.01 10/24/21 12:55: Troponin I < 0.01 I & O for Last 24 hours: Intake & Output 10/22/21 10/23/21 10/24/21 10/25/21 11:59 11:59 11:59 11:59 Intake Total 120 / 120 389 / 389 Balance 120 / 120 389 / 389 Weight 158 lb 9 oz - Constitutional no acute distress - *Routine HEENT Exam Head: Present: normocephalic Eye: Present: EOMI, PERRL ENT: Present: mucous membranes moist
--- NOTE | 2021-10-25 13:56 | CARE MANAGER ---
Spoke with patient for post-discharge phone interview, patient states that she is feeling good and has no issues at this time.
== END 2021-10-24 16:07 | disposition home or self-care (01) ==
LOC: ER 06:57 → 2ND 07:36
PROVIDERS: Admitting Provider Emergency Medicine; Emergency Provider Emergency Medicine; PCP Internal Medicine Adolescent Medicine; Visit Provider Internal Medicine Adolescent Medicine
DX: I48.0 Paroxysmal atrial fibrillation (principal); Z79.01 Long term (current) use of anticoagulants; I25.10 Atherosclerotic heart disease of native coronary artery without angina pectoris; I10 Essential (primary) hypertension; K21.9 Gastro-esophageal reflux disease without esophagitis; Z79.899 Other long term (current) drug therapy; R06.09 Other forms of dyspnea; Z20.822 Contact with and (suspected) exposure to COVID-19
CPT/HCPCS: G0378; 36415; 71046; 80048; 83880; 84145; 84436; 84443; 84484; 85025; 85651; 86140; 93005; 93306; 99285; C9803; U0003; U0005

== ENCOUNTER → 2022-03-24 12:59 | Outpatient (CLI) | payer MEDICARE, OTHER, SELFPAY ==
--- NOTE | 2022-03-24 13:06 | XR_ITS ---
FINAL REPORT CLINICAL HISTORY: PAIN DUE TO FALL FINDINGS: RIGHT KNEE Three views of the right knee reveal no evidence of fracture or dislocation. The bony alignment is normal. There are mild degenerative changes. There is a moderate joint effusion. No localized soft tissue abnormality is identified. IMPRESSION: Moderate joint effusion with no acute bony abnormality. Mild degenerative change. Reviewed, Interpreted and Dictated by Nael Rodriguez III, MD Transcribed by Rima Puentes Authenticated and . [facility]
== END ==
PROVIDERS: PCP Nurse Practitioner Family; Visit Provider Nurse Practitioner Family
DX: M25.561 Pain in right knee (principal); G89.11 Acute pain due to trauma
CPT/HCPCS: 73562

== ENCOUNTER 2022-03-27 05:46 | Emergency (ER) | payer MEDICARE, OTHER, SELFPAY ==
--- NOTE | 2022-03-27 05:44 | ECG_ITS ---
APPROVED REPORT Exam: Resting ECG HR:144 bpm ECG Measurements Heart Rate 144 AXES QRSd 78 QRS 40 QT 259 T 96 QTc 342 Conclusion ATRIAL FLUTTER/TACHYCARDIA WITH RAPID VENTRICULAR RESPONSE NONSPECIFIC ST & T-WAVE ABNORMALITY ABNORMAL RHYTHM ECG UNCONFIRMED REPORT Electronically signed by : Allen Love MD 03/27/2022 20:19:19
[2022-03-27 05:46] VITALS: BP 120/71; PULSE 148; RESP 17; TEMP 36.8; O2SAT 97; BMI 25.0
--- NOTE | 2022-03-27 05:57 | XR_ITS ---
PROCEDURE INFORMATION: Exam: XR Chest Exam date and time: 03/27/2022 6:48 AM Age: 81 years old Clinical indication: Other: A-fib; Additional info: Afib rvr TECHNIQUE: Imaging protocol: Radiologic exam of the chest. Views: 1 view. COMPARISON: CR XR CHEST 2V 10/24/2021 7:06 AM FINDINGS: Lungs: No consolidation. Pleural spaces: No pleural effusion. No pneumothorax. Heart/Mediastinum: The heart is moderately enlarged but unchanged. Bones/joints: There are degenerative changes of the thoracic spine. IMPRESSION: There is no evidence of active pulmonary disease.
[2022-03-27 06:01] VITALS: BP 127/80; PULSE 146; RESP 17; O2SAT 95
[2022-03-27 06:02] LABS: Coronavirus 19, PCR Not Detected (NotDetected); Influenza A, PCR Not Detected (NotDetected); Influenza B, PCR Not Detected (NotDetected)
[2022-03-27 06:08] LABS: Chloride 106 mmol/L (98-107); Potassium 3.7 mmoL/L (3.5-5.1); Sodium 140 mmol/L (136-145)
[2022-03-27 06:10] LABS: Bilirubin,Unconjugated 0.6 mg/dL (0.0-1.1); Blood Urea Nitrogen 16 mg/dl (7-17); Creatinine Clearance Estimated 51 mL/min (50-200); Estimated Glomerular Filt Rate 69 ml/min (>60); GFR (African American) 84 ML/MIN (>60)
[2022-03-27 06:11] LABS: Alanine Aminotransferase 22 U/L (12-78); Albumin Level 4.1 g/dl (3.5-5.0); Alkaline Phosphatase 70 U/L (38-126); Anion Gap 11.7 mEq/L (5-15); Aspartate Amino Transferase 31 U/L (14-36); Bilirubin,Direct 0.1 mg/dl (0.0-0.4); Bilirubin,Indirect 0.6 mg/dL (0.0-0.9); Bilirubin,Total 0.7 mg/dl (0.2-1.3); Calcium 9.3 mg/dl (8.4-10.2); Carbon Dioxide 26 mmol/L (22.0-30.0); Glucose 119 mg/dl (74-100); Total Protein,Serum 6.7 g/dl (6.3-8.2)
[2022-03-27 06:12] LABS: Basophils # 0.1 K/mm3 (0-0.2); Basophils % 0.8 % (0.1-2.0); Eosinophils # 0.4 K/mm3 (0.0-0.4); Eosinophils % 4.3 % (0.1-12.0); Hematocrit 45.1 % (37.0-47.0); Hemoglobin 14.5 g/dL (12.2-16.2); Lymphocytes # 2.1 K/mm3 (0.7-4.5); Lymphocytes % 24.8 % (10-50); Mean Corpuscular HGB Conc 32.2 g/dL (31.8-35.4); Mean Corpuscular Hemoglobin 31.1 pg (27.0-31.2); Mean Corpuscular Volume 96.7 fl (81-99); Mean Platelet Volume 9.5 fl (7.4-10.4); Monocytes # 0.5 K/mm3 (0.1-1.0); Monocytes % 6.1 % (1.7-9.3); Neutrophils # 5.4 K/mm3 (1.8-7.8); Platelet Count 458 K/mm3 (142-424); Red Blood Count 4.67 M/mm3 (4.20-5.40); Red Cell Distribution Width 13.2 % (11.5-17.5); White Blood Count 8.5 K/mm3 (4.8-10.8)
[2022-03-27 06:20] LABS: NT Pro Brain Natriuretic Pep. 331 pg/mL (0-450)
[2022-03-27 06:26] LABS: Troponin I < 0.01 ng/ml (0.00-0.034)
--- NOTE | 2022-03-27 06:27 | PC.NURSE ---
After Cardizem bolus HR slowing down from 158 to upper 90s. still afib aware.
[2022-03-27 06:31] VITALS: BP 105/55; PULSE 89; RESP 18; O2SAT 96
--- NOTE | 2022-03-27 06:34 | HMH.EDARPALP ---
Discharge Plan Disposition Patient Disposition: Home, Self-Care Chief Complaint: Arrhythmia/Palpitations Prescriptions Prescriptions: No Action Prolia 60 mg/mL syringe 60 mg SQ [id number] cholecalciferol (vitamin D3) 25 mcg (1,000 unit) capsule 25 mcg PO DAILY Xarelto 20 mg tablet 20 mg PO QPMWITHMEAL atorvastatin 40 mg tablet 40 mg PO HS Qty: 90 3RF omeprazole 20 MG tablet,delayed release (DR/EC) 20 mg PO DAILY metoprolol succinate 100 MG tablet extended release 24 hr 100 mg PO DAILY Referrals Follow up/Referrals: Allen Love MD [Primary Care Provider] - See instructions Dat Douglas MD [Staff Physician] - See instructions Clinical Impressions Clinical Impression: Atrial flutter Instructions Patient Instructions: DI for Atrial Flutter Discharge ED Provider: Dagoberto Rooney Arrhythmia/Palpitations HPI General Chief Complaint: Arrhythmia/Palpitations Stated Complaint: chest pain Time Seen by Provider: 03/27/22 06:00 Mode of Arrival: Family Vehicle Source of Information: Patient Limitations: No Limitations History of Present Illness HPI narrative: acute onset of fast hr with hx of a fib and on xarelto complaint: irregular heart beat and atrial fibrillation Onset (ago): hour(s) Duration: constant Severity: moderate Context: awoke with symptoms Arrhythmia history: atrial fibrillation and on anti-coagulants Associated symptoms: denies other symptoms Treatments prior to arrival: calcium channel jennie Related Data Home Medications Medication Instructions Recorded Confirmed rivaroxaban 20 mg tablet (Xarelto) 20 mg PO QPMWITHMEAL Blood thinner 05/16/19 10/24/21 omeprazole 20 mg tablet,delayed 20 mg PO DAILY GERD 03/17/20 10/24/21 release metoprolol succinate 100 mg 100 mg PO DAILY Hypertension 10/01/20 10/24/21 tablet,extended release 24 hr cholecalciferol (vitamin D3) 25 25 mcg PO DAILY Supplement 11/14/20 10/24/21 mcg (1,000 unit) capsule denosumab 60 mg/mL subcutaneous 60 mg SQ [id number] Osteoporosis 11/14/20 10/24/21 syringe (Prolia) Previous Rx's Medication Instructions Recorded atorvastatin 40 mg tablet 40 mg PO HS Cholesterol #90 tabs 07/30/21 diltiazem HCl 120 mg 120 mg PO DAILY #30 caps 03/27/22 capsule,extended release 24 hr Allergies Allergy/AdvReac Type Severity Reaction Status Date / Time Penicillins Allergy Intermediate EDEMA Verified 06/26/21 10:05 apixaban [From Eliquis] Allergy Mild Verified 06/26/21 10:05 Sulfa (Sulfonamide Allergy Unknown Verified 06/26/21 10:05 Antibiotics) [SULFA (SULFONAMIDE ANTIBIOTICS)] [facility] Disclaimer: The information contained in this section may have been updated after the patient was seen, as this information can be updated by other users. 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 caffeine: No ROS Obtained: Yes All systems reviewed & no additional complaints except as documented Physical Exam General General appearance: alert Head Head exam: normocephalic Eye Eye exam: Present PERRL and EOMI ENT ENT exam: Present mucous membranes moist Neck Neck exam: Present trachea midline Respiratory Respiratory exam: Present normal lung sounds bilaterally Cardiovascular Cardiovascular exam: Present irregular rhythm and systolic murmur Abdominal Exam Abdominal exam: Present soft Extremities Exam Extremities exam: Present full ROM Neurological Exam Neurological exam: Present alert, oriented X3 and CN II-XII intact Psychiatric Psychiatric exam: Present normal affect Skin Skin exam: Absent rash Medical Decision Making Medical Records Medical records reviewed: Yes I reviewed the patient's medical records. Rod Olmstead
[2022-03-27 07:00] VITALS: BP 120/60; PULSE 74; RESP 15; O2SAT 95
--- NOTE | 2022-03-27 07:13 | PC.NURSE ---
HR 77, MD states to stop Cardize gtt.
--- NOTE | 2022-03-27 07:21 | PC.NURSE ---
Dr. Rooney s/w Hipolito ROLAND
[2022-03-27 07:24] LABS: T4 (Thyroxine) 8.6 ug/dl (5.53-11.0)
[2022-03-27 07:30] VITALS: BP 132/65; PULSE 92; RESP 16; O2SAT 99
[2022-03-27 07:38] LABS: Thyroid Stimulating Hormone 3.58 uIU/mL (0.465-4.68)
--- NOTE | 2022-03-27 07:44 | PC.NURSE ---
pt ambulatory to restroom without complications
--- NOTE | 2022-03-27 07:57 | PC.NURSE ---
LUAN Adamson with Cards at BS
--- NOTE | 2022-03-27 08:05 | EXP.CARD.CON ---
History of Present Illness History of Present Illness Consult date: 03/27/22 Requesting physician: Dagoberto Rooney Consult reason: atrial fibrillation Chief complaint: Palpitations, atrial fibrillation with rapid ventricular Additional Medical History:: 1. Normal coronary arteries, 2019 2. History of atrial fibrillation, paroxysmal with long-term anticoagulation therapy 3. Hypertension 4. History of pericardial effusion, resolved by echocardiogram 10/2021 History of present illness: 81-year-old white female with known history of paroxysmal atrial fibrillation presented to the emergency department for rapid heart rate this morning. EKG showed atrial fibrillation with a rapid ventricular rate of [address]-T abnormalities. Patient was started on IV diltiazem with significant improvement in rate after about 1 hour. Diltiazem was then discontinued. Cardiology asked to see the patient regarding medication adjustment. Initial troponin is normal with CBC and BMP essentially unremarkable. Patient denies any recent aojp-bid-fredigv cold medications, history of thyroid issues or significant caffeine increase. She did fall earlier in the week with injury to her right knee with x-rays negative for acute fracture. At the time my exam patient denies any chest pain, pressure or tightness. Heart rate is in the 100 bpm range. [facility] Disclaimer: The information contained in this section may have been updated after the patient was seen, as this information can be updated by other users. 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 caffeine: No Review of Systems Review of Systems Review of systems:: pertinent systems reviewed and negative unless documented below *Cardiovascular Cardiovascular: Denies chest pain and Denies dyspnea *Respiratory Respiratory: Denies dyspnea *Musculoskeletal Musculoskeletal: Reports arthralgias Exam Data for Last 24 hours Vital signs and Labs for Last 24 Hours: Temp Pulse Resp BP Pulse Ox 98.3 F 92 H 16 132/65 99 03/27/22 05:46 03/27/22 07:30 03/27/22 07:30 03/27/22 07:30 03/27/22 07:30 Laboratory Results - last 24 hr 03/27/22 05:51: WBC 8.5, RBC 4.67, Hgb 14.5, Hct 45.1, MCV 96.7, MCH 31.1, MCHC 32.2, RDW 13.2, Plt Count 458 H, MPV 9.5, Neut % (Auto) 64.0, Lymph % (Auto) 24.8, [place] % (Auto) 6.1, Eos % (Auto) 4.3, Baso % (Auto) 0.8, Neut # (Auto) 5.4, Lymph # (Auto) 2.1, [place] # (Auto) 0.5, Eos # (Auto) 0.4, Baso # (Auto) 0.1 03/27/22 05:51: Sodium 140, Potassium 3.7, Chloride 106, Carbon Dioxide 26, Anion Gap 11.7, BUN 16, Creatinine 0.80, Estimated Creat Clear 51, Estimated GFR 69, Est GFR ( Amer) 84, Glucose 119 H, Calcium 9.3, Total Bilirubin 0.7, Direct Bilirubin 0.1, Conjugated Bilirubin 0.0, Indirect Bilirubin 0.6, Unconjugated Bilirubin 0.6, AST 31, ALT 22, Alkaline Phosphatase 70, Troponin I < 0.01, NT-Pro-B Natriuret Pep 331, Total Protein 6.7, Albumin 4.1 03/27/22 05:51: SARS-CoV-2 (PCR) Not detected, Influenza A Untype (PCR) Not detected, Influenza Type B (PCR) Not detected 03/27/22 05:51: TSH 3.58, Thyroxine (T4) 8.6 I & O for Last 24 hours: Intake & Output 03/24/22 03/25/22 03/26/22 03/27/22 11:59 11:59 11:59 11:59 Weight 155 lb Constitutional Constitutional: no acute distress *Routine Respiratory Exam Respiratory: Present CTA bilaterally *Routine Cardiovascular Exam Cardiovascular: Present irregularly irregular *Routine Extremities Exam Extremities: Absent cyanosis, clubbing or edema Meds Home Medications and Allergies Home Medications Medication Instructions Recorded Confirmed Type rivaroxaban 20 mg tablet (Xarelto) 20 mg PO QPMWITHMEAL Blood thinner 05/16/19 10/24/21 History omeprazole 20 mg tablet,d
[2022-03-27 08:50] VITALS: BP 111/67; PULSE 130; RESP 18; TEMP 36.7; O2SAT 96
== END 2022-03-27 08:50 | disposition home or self-care (01) ==
PROVIDERS: Emergency Provider Emergency Medicine; PCP Internal Medicine Adolescent Medicine
DX: R07.9 Chest pain, unspecified (principal); Z20.822 Contact with and (suspected) exposure to COVID-19; I10 Essential (primary) hypertension; I48.91 Unspecified atrial fibrillation; I48.92 Unspecified atrial flutter; R01.1 Cardiac murmur, unspecified; I25.10 Atherosclerotic heart disease of native coronary artery without angina pectoris; K21.9 Gastro-esophageal reflux disease without esophagitis; E78.5 Hyperlipidemia, unspecified; M81.0 Age-related osteoporosis without current pathological fracture; M19.90 Unspecified osteoarthritis, unspecified site; Z79.01 Long term (current) use of anticoagulants; Z88.0 Allergy status to penicillin; Z88.2 Allergy status to sulfonamides; Z88.8 Allergy status to other drugs, medicaments and biological substances
CPT/HCPCS: 71045; 80048; 80076; 83880; 84436; 84443; 84484; 85025; 93005; 96374; 96376; 99284; C9803; U0003; U0005

== ENCOUNTER 2022-04-16 09:55 | Outpatient (CLI) | payer MEDICARE, OTHER, SELFPAY ==
[2022-04-16 10:15] VITALS: BP 137/61; PULSE 57; RESP 18; TEMP 36.6; O2SAT 99
== END 2022-04-16 10:45 | disposition home or self-care (01) ==
LOC: INF 09:56
PROVIDERS: PCP Internal Medicine Adolescent Medicine; Visit Provider Internal Medicine Adolescent Medicine
DX: M81.0 Age-related osteoporosis without current pathological fracture (principal)
CPT/HCPCS: 96372; J0897

== ENCOUNTER 2022-05-08 10:00 | Outpatient (RCR) | payer MEDICARE, OTHER, SELFPAY ==
--- NOTE | 2022-04-14 09:18 | HMH.PTOPEV ---
PT Outpatient Evaluation Rehab PT Outpatient Evaluation Start: 04/14/22 08:25 Freq: Status: Active Protocol: Document 04/14/22 08:26 ZOEY (Rec: 04/14/22 09:18 ZOEY [id number]) E-signed By Jose Ford, PT Outpatient Therapy Subjective History Subjective History Pt presents s/p fall at home with injury to right knee ~3 weeks ago. Pt reports lingering right knee stiffness , swelling, and pain since fall. Pt reports h/o chronic right knee OA which 'causes it to always be a little more stiff than the left'. PMH: Afib Chief Complaint Pain,Stiff,Swelling Symptom Type Ache,Throb,Sharp,Dull,Burning Symptoms Relieved By Rest/Positioning,Ice Symptoms Aggravated By Walking Prior Functional Limitations None Current Functional Limitations Housework,Standing,Sitting, Walking,Stairs Symptom Description Intermittent Level of pain today (0-10) 0 Pain scale - at its best (0-10) 0 Pain scale - at its worst (0-10) 5 Hip/Knee Eval Gait Observation General Gait Pattern Observation Antalgic Gait Assistive Device Assistive Devices None / NA Palpation Tenderness right Knee Palpation Finding Tenderness Knee Palpation Overall Comment 3/4 medial jt line, 2-3/4 lateral jt line, 1-2/4 popiteal space MMT Hip Flexion Strength Grade 4 Good Hip Abduction Strength Grade 4- Good- Hip Adduction Strength Grade 4- Good- Hip Extension Strength Grade 4- Good- Hip External Rotation Strength Grade 4 Good Hip Internal Rotation Strength Grade 4 Good Knee Extension Strength Grade 4 Good Knee Flexion Strength Grade 4 Good ROM left Knee Flexion Active Range of Motion ( 2-132 degrees) right Knee Flexion Active Range of Motion ( 5-110 degrees) Effusion joint effusion knee exam standard right Mid - Patellar Circumerential Measure ( 43 cm) Special Tests Knee Valgus Stress Test Negative Right Knee Varus Stress Test Negative Right Knee Avni Test Negative Right Patella Apprehension Test Negative Right Outpatient Therapy Assessment Impairments Problems/Impairmments Palpation Tenderness,Impaired Range of Motion,Impaired Strength,Impaired Gait Pattern ,Impaired Walking,Impaired
== END 2022-05-08 10:05 | disposition home or self-care (01) ==
LOC: PT 10:00
PROVIDERS: PCP Internal Medicine Adolescent Medicine; Visit Provider Internal Medicine Adolescent Medicine
DX: M25.561 Pain in right knee (principal)
CPT/HCPCS: 97010; 97016; 97110; 97140; 97163

== ENCOUNTER 2022-06-01 09:49 | Emergency (ER) | payer MEDICARE, OTHER, SELFPAY ==
--- NOTE | 2022-06-01 09:56 | ECG_ITS ---
APPROVED REPORT Exam: Resting ECG HR:63 bpm ECG Measurements Heart Rate 63 AXES AK 192 P 65 QRSd 89 QRS 52 QT 372 T 68 QTc 379 Conclusion SINUS RHYTHM WITH MARKED SINUS ARRHYTHMIA MODERATE ST DEPRESSION [0.05+ mV ST DEPRESSION] ABNORMAL ECG UNCONFIRMED REPORT Electronically signed by : Allen Love MD 06/03/2022 20:31:52
[2022-06-01 09:57] VITALS: BP 164/81; PULSE 67; RESP 16; TEMP 36.6; O2SAT 98; BMI 25.7
--- NOTE | 2022-06-01 09:59 | HMH.EDGENADL ---
Discharge Plan Disposition Patient Disposition: Home, Self-Care Condition: Good Prescriptions Prescriptions: No Action Prolia 60 mg/mL syringe 60 mg SQ [id number] cholecalciferol (vitamin D3) 25 mcg (1,000 unit) capsule 25 mcg PO DAILY metoprolol succinate 100 mg tablet extended release 24 hr 100 mg PO DAILY Qty: 90 1RF Xarelto 20 mg tablet 20 mg PO QPMWITHMEAL Qty: 90 1RF atorvastatin 40 mg tablet 40 mg PO HS Qty: 90 3RF omeprazole 20 MG tablet,delayed release (DR/EC) 20 mg PO DAILY diltiazem HCl 120 mg capsule,extended release 24hr 120 mg PO DAILY Referrals Follow up/Referrals: Allen Love MD [Primary Care Provider] - See instructions Activity Restrictions/Add. Instructions Additional Instructions/Restrictions: Follow-up with primary care provider, call tomorrow to make appointment. Primary care provider to manage/adjust your blood pressure medications. Clinical Impressions Clinical Impression: Light-headedness, Hypertension Instructions Patient Instructions: DI for High Blood Pressure, DI for Dizziness-Nonvertigo Discharge ED Provider: Carlos Arroyo General Adult HPI General Chief complaint: Dizziness Stated complaint: dizzy, strange feeling all over,BP ? Time Seen by Provider: 06/01/22 10:05 History of Present Illness HPI narrative: States that about 9 AM she was getting ready to go to [employer] and began feeling dizzy which she describes as feeling cold all over and swimmy headed. She says she took her blood pressure and it was elevated 150 systolic. She says her usual blood pressure is from 98 systolic up to 115 systolic. She denies chest pain, shortness of breath, nausea, diaphoresis, palpitations. States she has not recently been ill, no URI or GI illness, no urinary symptoms. She took her medications after symptoms started this morning. States that she had an episode of atrial fibrillation 2 days ago that lasted most all day. She did not seek care for it. She has paroxysmal atrial fibrillation. She says when she had the atrial fibrillation 2 days ago she had a similar feeling of being cold and swimmy headed. She has also had that feeling a couple of times in the past, but did not seek care because it did not last very long. Related Data Home Medications Medication Instructions Recorded Confirmed omeprazole 20 mg tablet,delayed 20 mg PO DAILY GERD 03/17/20 04/16/22 release cholecalciferol (vitamin D3) 25 25 mcg PO DAILY Supplement 11/14/20 04/16/22 mcg (1,000 unit) capsule denosumab 60 mg/mL subcutaneous 60 mg SQ [id number] Osteoporosis 11/14/20 04/16/22 syringe (Prolia) diltiazem HCl 120 mg 120 mg PO DAILY Heart rhythm 04/16/22 04/16/22 capsule,extended release 24 hr Previous Rx's Medication Instructions Recorded atorvastatin 40 mg tablet 40 mg PO HS Cholesterol #90 tabs 07/30/21 metoprolol succinate 100 mg 100 mg PO DAILY Hypertension #90 04/07/22 tablet,extended release 24 hr tabs rivaroxaban 20 mg tablet (Xarelto) 20 mg PO QPMWITHMEAL Blood thinner 04/07/22 #90 tabs Allergies Allergy/AdvReac Type Severity Reaction Status Date / Time Penicillins Allergy Intermediate EDEMA Verified 04/07/22 09:37 apixaban [From Eliquis] Allergy Mild Verified 04/07/22 09:37 Sulfa (Sulfonamide Allergy Unknown Verified 04/07/22 09:37 Antibiotics) [SULFA (SULFONAMIDE ANTIBIOTICS)] [facility] Disclaimer: The information contained in this section may have been updated after the patient was seen, as this information can be updated by other users. Medical History (Updated 06/01/22 @ 11:00 by Carlos Arroyo MD) A-fib Arrhythmia Arthritis Atherosclerotic cardiovascular disease CAD (coronary artery disease) GERD (gastroesophageal reflux disease) HLD (hyperlipidemia) HTN (hypertension) Kidney stones Osteoporosis Skin cancer Surgical History (Updated 04/16/22 @ 12:42 by Jean Carlos Goldman RN) History of cardia
[2022-06-01 10:00] VITALS: BP 155/66; PULSE 62; RESP 18; O2SAT 99
[2022-06-01 10:08] LABS: Basophils # 0.1 K/mm3 (0-0.2); Basophils % 0.7 % (0.1-2.0); Eosinophils # 0.2 K/mm3 (0.0-0.4); Eosinophils % 3.2 % (0.1-12.0); Hematocrit 42.4 % (37.0-47.0); Hemoglobin 13.6 g/dL (12.2-16.2); Lymphocytes % 29.7 % (10-50); Mean Corpuscular HGB Conc 32.2 g/dL (31.8-35.4); Mean Corpuscular Hemoglobin 30.7 pg (27.0-31.2); Mean Corpuscular Volume 95.4 fl (81-99); Mean Platelet Volume 9.6 fl (7.4-10.4); Monocytes # 0.3 K/mm3 (0.1-1.0); Monocytes % 4.7 % (1.7-9.3); Neutrophils # 4.1 K/mm3 (1.8-7.8); Neutrophils % 61.7 % (37.0-80.0); Platelet Count 457 K/mm3 (142-424); Red Blood Count 4.44 M/mm3 (4.20-5.40); Red Cell Distribution Width 13.7 % (11.5-17.5); White Blood Count 6.6 K/mm3 (4.8-10.8)
--- NOTE | 2022-06-01 10:09 | PC.NURSE ---
DR HALEY AT BEDSIDE
--- NOTE | 2022-06-01 10:10 | XR_ITS ---
PROCEDURE INFORMATION: Exam: XR Chest Exam date and time: 06/01/2022 10:35 AM Age: 82 years old Clinical indication: Shortness of breath; Additional info: Elev BP, dizzy TECHNIQUE: Imaging protocol: Radiologic exam of the chest. Views: 1 view. COMPARISON: CR XR CHEST PORTABLE 03/27/2022 6:48 AM FINDINGS: Lungs: Hyperinflation and interstitial prominence, without acute airspace disease. Pleural spaces: No pleural effusion. Heart/Mediastinum: Cardiomegaly. Bones/joints: Degenerative change. When correlating with the previous study, no significant interval changes are present. IMPRESSION: Stable appearance of the chest, not significantly changed from 03/27/22.
[2022-06-01 10:13] LABS: Chloride 108 mmol/L (98-107)
[2022-06-01 10:14] LABS: Potassium 4.3 mmoL/L (3.5-5.1); Sodium 141 mmol/L (136-145)
[2022-06-01 10:16] LABS: Alanine Aminotransferase 28 U/L (12-78); Alkaline Phosphatase 61 U/L (38-126); Aspartate Amino Transferase 35 U/L (14-36); Bilirubin,Total 0.7 mg/dl (0.2-1.3); Blood Urea Nitrogen 15 mg/dl (7-17); Creatinine Clearance Estimated 50 mL/min (50-200); Estimated Glomerular Filt Rate 69 ml/min (>60); GFR (African American) 84 ML/MIN (>60)
[2022-06-01 10:17] LABS: Albumin Level 4.2 g/dl (3.5-5.0); Albumin/Globulin Ratio 1.7 (1.1-1.8); Anion Gap 7.3 mEq/L (5-15); Calcium 8.8 mg/dl (8.4-10.2); Carbon Dioxide 30 mmol/L (22.0-30.0); Globulin 2.5 g/dL (1.3-3.2); Glucose 124 mg/dl (74-100); Total Protein,Serum 6.7 g/dl (6.3-8.2)
--- NOTE | 2022-06-01 10:22 | PC.NURSE ---
Patient ambulated to bathroom. Urine collected. XR at bedside.
[2022-06-01 10:24] LABS: Microscopic, Urine URINE MICROSCOPIC (MICROSCOPIC)
[2022-06-01 10:27] LABS: Appearance,Urine CLEAR (Clear); Blood, Urine TRACE-I (Negative); Color,Urine YELLOW (Yellow); Glucose,Urine (UA) Negative (Negative); Ketones,Urine Negative (Negative); Leukocyte Esterase,Urine TRACE (Negative); Nitrate,Urine Negative (Negative); Protein,Urine Negative (Negative); Specific Gravity, Urine >= 1.030 (1.005-1.030); Urobilinogen,Urine 0.2 EU/dl (0.2)
[2022-06-01 10:28] LABS: Troponin I 0.03 ng/ml (0.00-0.034)
[2022-06-01 10:30] VITALS: BP 149/65; PULSE 60; RESP 16; O2SAT 100
[2022-06-01 10:32] LABS: Bilirubin,Urine 1+ (Negative)
[2022-06-01 10:38] LABS: Bacteria,Urine Trace /lpf; RBC,Urine Occasional #/hpf (0-3); Transitional Epi Cells,Urine OCC #/lpf (0-3); WBC,Urine Occasional #/hpf (0-3)
[2022-06-01 11:05] VITALS: BP 136/61; PULSE 60; RESP 14; TEMP 36.7; O2SAT 99
== END 2022-06-01 11:10 | disposition home or self-care (01) ==
PROVIDERS: Emergency Provider Emergency Medicine; PCP Internal Medicine Adolescent Medicine
DX: I10 Essential (primary) hypertension (principal); I48.91 Unspecified atrial fibrillation; R42 Dizziness and giddiness; I25.10 Atherosclerotic heart disease of native coronary artery without angina pectoris; K21.9 Gastro-esophageal reflux disease without esophagitis; E78.5 Hyperlipidemia, unspecified; Z90.49 Acquired absence of other specified parts of digestive tract
CPT/HCPCS: 71045; 80053; 81001; 84484; 85025; 93005; 99285

== ENCOUNTER → 2022-06-02 13:49 | Outpatient (CLI) | payer MEDICARE, OTHER, SELFPAY | PROVIDERS: PCP Internal Medicine Adolescent Medicine; Visit Provider Internal Medicine Adolescent Medicine | DX: R55 Syncope and collapse (principal); I48.0 Paroxysmal atrial fibrillation | CPT/HCPCS: 93225; 93226 ==

== ENCOUNTER 2022-10-15 10:03 | Outpatient (CLI) | payer MEDICARE, OTHER, SELFPAY ==
[2022-10-15 10:25] VITALS: BP 132/50; PULSE 76; RESP 18; O2SAT 99
== END 2022-10-15 10:25 | disposition home or self-care (01) ==
LOC: INF 10:04
PROVIDERS: PCP Internal Medicine Adolescent Medicine; Visit Provider Internal Medicine Adolescent Medicine
DX: M81.0 Age-related osteoporosis without current pathological fracture (principal)
CPT/HCPCS: 96372

== ENCOUNTER 2023-01-14 05:55 | Emergency (ER) | payer MEDICARE, OTHER, SELFPAY ==
[2023-01-14] VITALS (17 sets, daily range): BP systolic 82–157; BP diastolic 55–94; PULSE 68–153; RESP 9–17; TEMP 36.5–36.6; O2SAT 95–98; BMI 25.7
--- NOTE | 2023-01-14 06:04 | ECG_ITS ---
APPROVED REPORT Exam: Resting ECG HR:137 bpm ECG Measurements Heart Rate 137 AXES QRSd 81 QRS 52 QT 251 T 204 QTc 331 Conclusion ATRIAL FIBRILLATION WITH RAPID VENTRICULAR RESPONSE ST DEVIATION AND MODERATE T-WAVE ABNORMALITY, CONSIDER LATERAL ISCHEMIA [-0.1+ mV T-WAVE IN I/aVL/V5/V6] ABNORMAL ECG UNCONFIRMED REPORT Electronically signed by : Allen Love MD 01/17/2023 11:08:25
--- NOTE | 2023-01-14 06:14 | PC.NURSE ---
doctor in the room with patient.
[2023-01-14 06:32] LABS: Chloride 104 mmol/L (98-107); Sodium 141 mmol/L (136-145)
[2023-01-14 06:35] LABS: Alanine Aminotransferase 26 U/L (12-78); Albumin/Globulin Ratio 1.5 (1.1-1.8); Alkaline Phosphatase 59 U/L (38-126); Aspartate Amino Transferase 36 U/L (14-36); Bilirubin,Total 0.5 mg/dl (0.2-1.3); Blood Urea Nitrogen 18 mg/dl (7-17); Calcium 8.8 mg/dl (8.4-10.2); Carbon Dioxide 29 mmol/L (22.0-30.0); Creatinine Clearance Estimated 50 mL/min (50-200); Estimated Glomerular Filt Rate 69 ml/min (>60); GFR (African American) 84 ML/MIN (>60); Globulin 2.7 g/dL (1.3-3.2); Glucose 123 mg/dl (74-100); Magnesium 1.7 mg/dl (1.6-2.3); Total Protein,Serum 6.7 g/dl (6.3-8.2)
[2023-01-14 06:36] LABS: Basophils # 0.1 K/mm3 (0-0.2); Basophils % 0.6 % (0.1-2.0); Eosinophils # 0.2 K/mm3 (0.0-0.4); Hematocrit 46.2 % (37.0-47.0); Hemoglobin 15.4 g/dL (12.2-16.2); Lymphocytes # 2.3 K/mm3 (0.7-4.5); Lymphocytes % 29.7 % (10-50); Mean Corpuscular HGB Conc 33.3 g/dL (31.8-35.4); Mean Corpuscular Hemoglobin 32.1 pg (27.0-31.2); Mean Corpuscular Volume 96.5 fl (81-99); Mean Platelet Volume 9.8 fl (7.4-10.4); Monocytes # 0.5 K/mm3 (0.1-1.0); Monocytes % 6.3 % (1.7-9.3); Neutrophils # 4.8 K/mm3 (1.8-7.8); Neutrophils % 60.4 % (37.0-80.0); Platelet Count 453 K/mm3 (142-424); Red Blood Count 4.79 M/mm3 (4.20-5.40); Red Cell Distribution Width 13.4 % (11.5-17.5); White Blood Count 7.9 K/mm3 (4.8-10.8)
--- NOTE | 2023-01-14 06:42 | HMH.EDGENADL ---
Discharge Plan Disposition Patient Disposition: Still a Patient Prescriptions Prescriptions: New diltiazem HCl 60 mg capsule,extended release 12 hr 60 mg PO BID 30 Days Qty: 60 0RF No Action cholecalciferol (vitamin D3) 25 mcg (1,000 unit) capsule 25 mcg PO DAILY metoprolol succinate 100 mg tablet extended release 24 hr 100 mg PO DAILY Qty: 90 1RF omeprazole 20 MG tablet,delayed release (DR/EC) 20 mg PO DAILY atorvastatin 40 mg tablet 40 mg PO HS Rx Instructions: TAKE 1 TABLET BY MOUTH AT BEDTIME FOR CHOLESTEROL Referrals Follow up/Referrals: Dat Douglas MD [Staff Physician] - See instructions Allen Love MD [Primary Care Provider] - See instructions Activity Restrictions/Add. Instructions Additional Instructions/Restrictions: Please start your diltiazem prescription tomorrow January 15 and also follow-up closely meeting within the next 1 to [address] Douglas or Dr[address] Pak. Clinical Impressions Clinical Impression: Atrial fibrillation with rapid ventricular response, Paroxysmal A-fib Discharge ED Provider: Jose Brambila General Adult HPI <Jose Brambila MD - Last Filed: 01/14/23 23:26> General Chief complaint: Chest Pain Stated complaint: A Fib, High B/P Time Seen by Provider: 01/14/23 06:06 Mode of Arrival: Ambulatory Source of Information: Patient Limitations: No Limitations Description of Symptoms (Recalled from ER Triage Doc. by RN): pt c/o waking up with heart fluttering, mid upper back pain, reports hx of AFIB and HTN History of Present Illness HPI narrative: 82-year-old female, history of paroxysmal A-fib, hypertension, hyperlipidemia presents with A-fib RVR. She reports that she woke up with fluttering in her chest and back pain. Reports that the symptoms are consistent with prior episodes of atrial fibrillation. She reports that her heart rhythm is normally sinus, but will often flip into atrial fibrillation. It usually corrects itself at home. She takes metoprolol 100 mg ER daily. She has not taken her morning dose this morning. She denies any recent changes in her health. She denies any recent illness. She was previously on oral diltiazem after the last time she came to the ER with A-fib, but was taken off of it due to some sort of side effect. She is not sure what. She denies chest pain abdominal pain shortness of breath. Related Data Home Medications Medication Instructions Recorded Confirmed omeprazole 20 mg tablet,delayed 20 mg PO DAILY GERD 03/17/20 01/14/23 release cholecalciferol (vitamin D3) 25 25 mcg PO DAILY Supplement 11/14/20 01/14/23 mcg (1,000 unit) capsule atorvastatin 40 mg tablet 40 mg PO HS High Cholesterol 10/15/22 01/14/23 Previous Rx's Medication Instructions Recorded metoprolol succinate 100 mg 100 mg PO DAILY Hypertension #90 04/07/22 tablet,extended release 24 hr tabs diltiazem HCl 60 mg 60 mg PO BID 30 days #60 caps 01/14/23 capsule,extended release 12 hr Allergies Allergy/AdvReac Type Severity Reaction Status Date / Time Penicillins Allergy Intermediate EDEMA Verified 04/07/22 09:37 apixaban [From Eliquis] Allergy Mild Verified 04/07/22 09:37 Sulfa (Sulfonamide Allergy Unknown Verified 04/07/22 09:37 Antibiotics) [SULFA (SULFONAMIDE ANTIBIOTICS)] [facility] <Jose Brambila MD - Last Filed: 01/14/23 23:26> [facility] Disclaimer: The information contained in this section may have been updated after the patient was seen, as this information can be updated by other users. Medical History (Updated 01/14/23 @ 06:51 by Jose Brambila MD) A-fib Arrhythmia Arthritis Atherosclerotic cardiovascular disease CAD (coronary artery disease) GERD (gastroesophageal reflux disease) HLD (hyperlipidemia) HTN (hypertension) Kidney stones Osteoporosis Skin cancer Surgical History History of cardiac catheterization History of co
[2023-01-14 07:29] LABS: Troponin I < 0.01 ng/ml (0.00-0.034)
--- NOTE | 2023-01-14 07:44 | PC.NURSE ---
dr kasper at bedside to reevaluate pt
--- NOTE | 2023-01-14 08:07 | PC.NURSE ---
ROUNDED ON PT, OFFERED BREAKFAST TRAY. PT DECLINES. NO NEEDS AT THIS TIME. CALL LIGHT WITHIN REACH
--- NOTE | 2023-01-14 09:37 | PC.NURSE ---
PT RESTING IN BED, NO NEEDS AT THIS TIME. CALL LIGHT WITHIN REACH
--- NOTE | 2023-01-14 09:41 | PC.NURSE ---
DR PRYOR AT BEDSIDE TO UPDATE PT
== END 2023-01-14 09:48 | disposition still patient (30) ==
PROVIDERS: Emergency Provider Emergency Medicine; PCP Internal Medicine Adolescent Medicine
DX: I48.91 Unspecified atrial fibrillation (principal); I10 Essential (primary) hypertension; E78.5 Hyperlipidemia, unspecified; I25.10 Atherosclerotic heart disease of native coronary artery without angina pectoris; K21.9 Gastro-esophageal reflux disease without esophagitis; M19.09 Primary osteoarthritis, other specified site; M81.8 Other osteoporosis without current pathological fracture; Z87.442 Personal history of urinary calculi
CPT/HCPCS: 80053; 83735; 84484; 85025; 93005; 96374; 96375; 99291

== ENCOUNTER 2023-01-22 09:10 | Inpatient (IN) | payer MEDICARE, OTHER, SELFPAY ==
[2023-01-22] VITALS (16 sets, daily range): BP systolic 87–139; BP diastolic 44–89; PULSE 63–175; RESP 11–20; TEMP 36.7–37.1; O2SAT 93–98; BMI 25.7; BMI 25.2
--- NOTE | 2023-01-22 09:08 | ECG_ITS ---
APPROVED REPORT Exam: Resting ECG HR:169 bpm ECG Measurements Heart Rate 169 AXES QRSd 84 QRS 65 QT 229 T 226 QTc 321 Conclusion ATRIAL FIBRILLATION WITH RAPID VENTRICULAR RESPONSE MARKED ST DEPRESSION, CONSIDER SUBENDOCARDIAL INJURY [0.2+ mV ST DEPRESSION] ACUTE [place] UNCONFIRMED REPORT Electronically signed by : Allen Love MD 01/22/2023 10:08:15
--- NOTE | 2023-01-22 09:29 | PC.NURSE ---
Dr. Hale at BS for pt eval
[2023-01-22 09:32] LABS: Basophils % 0.7 % (0.1-2.0); Eosinophils % 0.5 % (0.1-12.0); Hemoglobin 14.8 g/dL (12.2-16.2); Lymphocytes # 1.6 K/mm3 (0.7-4.5); Lymphocytes % 41.5 % (10-50); Mean Corpuscular HGB Conc 34.5 g/dL (31.8-35.4); Mean Corpuscular Hemoglobin 32.2 pg (27.0-31.2); Mean Corpuscular Volume 93.3 fl (81-99); Mean Platelet Volume 9.5 fl (7.4-10.4); Monocytes # 0.3 K/mm3 (0.1-1.0); Monocytes % 6.4 % (1.7-9.3); Platelet Count 338 K/mm3 (142-424); Red Blood Count 4.61 M/mm3 (4.20-5.40); Red Cell Distribution Width 13.5 % (11.5-17.5)
[2023-01-22 09:33] LABS: Chloride 104 mmol/L (98-107); Sodium 137 mmol/L (136-145)
[2023-01-22 09:34] LABS: Potassium 3.5 mmoL/L (3.5-5.1)
[2023-01-22 09:36] LABS: Alanine Aminotransferase 37 U/L (12-78); Albumin Level 4.3 g/dl (3.5-5.0); Albumin/Globulin Ratio 1.7 (1.1-1.8); Alkaline Phosphatase 64 U/L (38-126); Anion Gap 12.5 mEq/L (5-15); Aspartate Amino Transferase 62 U/L (14-36); Bilirubin,Total 0.3 mg/dl (0.2-1.3); Blood Urea Nitrogen 12 mg/dl (7-17); Carbon Dioxide 24 mmol/L (22.0-30.0); Creatinine Clearance Estimated 50 mL/min (50-200); Estimated Glomerular Filt Rate 60 ml/min (>60); GFR (African American) 73 ML/MIN (>60); Globulin 2.6 g/dL (1.3-3.2); Total Protein,Serum 6.9 g/dl (6.3-8.2)
[2023-01-22 09:37] LABS: Calcium 8.3 mg/dl (8.4-10.2); Glucose 132 mg/dl (74-100)
--- NOTE | 2023-01-22 09:37 | PC.NURSE ---
ANGEL Post paged Dr. Douglas
--- NOTE | 2023-01-22 09:40 | PC.NURSE ---
Dr. Hale speaking with Dr. Douglas
[2023-01-22] MEDS: LACTATED RINGERS 1000ML 1,000 ML 999 ML IV ×2 (09:41→11:23)
--- NOTE | 2023-01-22 09:43 | XR_ITS ---
FINAL REPORT CLINICAL HISTORY: dyspnea COMPARISON: 03/27/2022 FINDINGS: SINGLE-VIEW CHEST There is cardiomegaly. The mediastinum is normal. There are mild right base opacities, favor atelectasis over pneumonia. There is no pneumothorax. IMPRESSION: Right base opacities, favor atelectasis over pneumonia. Reviewed, Interpreted and Dictated by Nael Rodriguez III, MD Transcribed by Tomasa Cazares Authenticated and [facility]
--- NOTE | 2023-01-22 09:46 | ED_ITS ---
Discharge Plan Disposition Patient Disposition: Admitted Prescriptions Prescriptions: No Action cholecalciferol (vitamin D3) 25 mcg (1,000 unit) capsule 25 mcg PO DAILY metoprolol succinate 100 mg tablet extended release 24 hr 100 mg PO DAILY Qty: 90 1RF omeprazole 20 MG tablet,delayed release (DR/EC) 20 mg PO DAILY atorvastatin 40 mg tablet 40 mg PO HS Rx Instructions: TAKE 1 TABLET BY MOUTH AT BEDTIME FOR CHOLESTEROL Referrals Follow up/Referrals: Provider,Referral, MD [Primary Care Provider] - See instructions Clinical Impressions Clinical Impression: Atrial fibrillation with rapid ventricular response Discharge ED Provider: Hipolito Hale General Adult HPI General Chief complaint: Arrhythmia/Palpitations Stated complaint: shortness of air Time Seen by Provider: 01/22/23 09:24 Mode of Arrival: Ambulatory Source of Information: Patient Limitations: No Limitations Description of Symptoms (Recalled from ER Triage Doc. by RN): Pt reports felt like going to pass out when getting out of the shower this morning. Pt reports hx of afib, states recent admission. Pt reports SOA feeling. History of Present Illness HPI narrative: Patient is an 82-year-old female presenting today with near syncope when getting out of the shower this morning. She has a history of multiple recent visits for atrial fibrillation. I saw her at the end of her last visit where she required a beta-jennie and a calcium channel jennie to be under rate control and she followed up with Dr. Pak who subsequently discontinued the calcium channel jennie. She states over the last several days she has had cough and congestion as well as diarrhea and decreased p.o. intake and has felt very weak and sick. She states she does not believe that she has been back in A-fib other than this morning. She has not yet followed up with Dr. Douglas. She denies any fevers or chills. Denies any urinary symptoms. Related Data Home Medications Medication Instructions Recorded Confirmed omeprazole 20 mg tablet,delayed 20 mg PO DAILY GERD 03/17/20 01/22/23 release cholecalciferol (vitamin D3) 25 25 mcg PO DAILY Supplement 11/14/20 01/22/23 mcg (1,000 unit) capsule atorvastatin 40 mg tablet 40 mg PO HS Cholesterol 01/22/23 01/22/23 Previous Rx's Medication Instructions Recorded metoprolol succinate 100 mg 100 mg PO DAILY Hypertension #90 01/02/23 tablet,extended release 24 hr tabs Allergies Allergy/AdvReac Type Severity Reaction Status Date / Time Penicillins Allergy Intermediate EDEMA Verified 04/07/22 09:37 apixaban [From Eliquis] Allergy Mild Verified 04/07/22 09:37 Sulfa (Sulfonamide Allergy Unknown Verified 04/07/22 09:37 Antibiotics) [SULFA (SULFONAMIDE ANTIBIOTICS)] [facility] Disclaimer: The information contained in this section may have been updated after the patient was seen, as this information can be updated by other users. Medical History (Updated 01/22/23 @ 09:50 by Hipolito Hale MD) A-fib Arrhythmia Arthritis Atherosclerotic cardiovascular disease CAD (coronary artery disease) GERD (gastroesophageal reflux disease) HLD (hyperlipidemia) HTN (hypertension) Kidney stones Osteoporosis Skin cancer Surgical History History of cardiac catheterization History of colonoscopy History of tonsillectomy Hx of local excision of skin lesion Family History Other No significant family history Social History Smoking Status: Never smoker alcohol intake: current substance use type: denies use current occupational status: retired Travel in the last 8 weeks: None household members: spouse housing: house current occupation: RETIRED [employer] caffeine: No ROS Obtained: Yes All systems reviewed & no additional complaints except as documented Physical Exam General General appearance: alert and other (Ill-appearing) Respiratory Respiratory exam: Present normal lung sounds bilaterally Cardiovascular Cardiovascular exam: Present other (Irregularly irregular on the monitor patient's heart rate is between 160 and 190 but perfusing rhythm is only between 50 and 70) Abdominal Exam Abdominal exam: Present soft; Absent distention or tenderness Neurological Exam Neurological exam: Present alert and oriented X3 Medical Decision Making Rod Inquiry Pt receiving controlled substance: No Vital Signs: 01/22/23 09:10 01/22/23 09:30 01/22/23 10:00 Temperature 98.2 F Temperature Source Oral Pulse Rate 76 143 H Pulse Rate [Apical] 175 H Respiratory Rate 18 13 Blood Pressure 109/72 L 131/74 Blood Pressure [Right Arm] 129/52 L Blood Pressure Mean 84 80 Blood Pressure Mean [Right Arm] 77 Blood Pressure Source [Right Arm] Automatic Cuff Blood Pressure Position [Right Arm] Sitting 02 Sat by Pulse Oximetry 96 96 98 Oxygen Delivery Method Room Air Non-Rebreather 01/22/23 10:08 01/22/23 10:32 Temperature Temperature Source Pulse Rate 146 H 154 H Pulse Rate [Apical] Respiratory Rate Blood Pressure 136/89 94/60 L Blood Pressure [Right Arm] Blood Pressure Mean 104 68 Blood Pressure Mean [Right Arm] Blood Pressure Source [Right Arm] Blood Pressure Position [Right Arm] 02 Sat by Pulse Oximetry 98 95 Oxygen Delivery Method Non-Rebreather Room Air Lab Data Lab results reviewed: Yes I reviewed the patient's lab results. Lab Results 01/22/23 09:15: WBC 4.0 L, RBC 4.61, Hgb 14.8, Hct 43.0, MCV 93.3, MCH 32.2 H, MCHC 34.5, RDW 13.5, Plt Count 338, MPV 9.5, Neut % (Auto) 51.0, Lymph % (Auto) 41.5, [place] % (Auto) 6.4, Eos % (Auto) 0.5, Baso % (Auto) 0.7, Neut # (Auto) 2.0, Lymph # (Auto) 1.6, [place] # (Auto) 0.3, Eos # (Auto) 0.0, Baso # (Auto) 0.0, Sodium 137, Potassium 3.5, Chloride 104, Carbon Dioxide 24, Anion Gap 12.5, BUN 12, Creatinine 0.90, Estimated Creat Clear 50, Estimated GFR 60, Est GFR ( Amer) 73, Glucose 132 H, Calcium 8.3 L, Phosphorus 3.4, Magnesium 1.6 01/22/23 09:15: Magnesium 1.6, Total Bilirubin 0.3, AST 62 H, ALT 37, Alkaline Phosphatase 64, Troponin I 0.02, Total Protein 6.9, Albumin 4.3, Globulin 2.6, Albumin/Globulin Ratio 1.7, TSH 2.99 01/22/23 10:18: Lactate 1.7 01/22/23 09:15 01/22/23 09:15 Orders (Tests/Meds): ED MEDICATIONS Generic Name Dose Route Start Last Admin Trade Name Freq PRN Reason Stop Dose Admin Potassium Chloride/Water 100 mls @ 100 mls/hr 01/22/23 10:30 Potassium Chloride 10meq/100ml Ivpb IV 01/22/23 13:29 Q1H AUDELIA Diltiazem HCl 100 mg/ Sodium 100 mls @ 5 mls/hr 01/22/23 10:18 Chloride IV 02/21/23 10:17 .Q20H AUDELIA Protocol 5 MG/HR Iopamidol 70 ml 01/22/23 10:56 01/22/23 10:57 Iopamidol-370 (76%);100ml Bottle IV 01/22/23 10:57 70 ml ONCE ONE Administration Sodium Chloride 10 ml 01/22/23 09:17 Sodium Chloride 0.9% 10ml Flush Syringe IV 02/21/23 09:16 NEEDED PRN Maintain IV Site Sodium Chloride 10 ml 01/22/23 10:56 01/22/23 10:57 Sodium Chloride 0.9% 10ml Syr (Rad Only) IV 01/22/23 10:57 10 ml ONCE ONE Administration Sodium Chloride 50 ml 01/22/23 10:56 01/22/23 10:57 0.9 % Sodium Chloride 50 Ml Vial IV 01/22/23 10:57 50 ml ONCE ONE Administration Discontinued Medications Generic Name Dose Route Start Last Admin Trade Name Freq PRN Reason Stop Dose Admin Diltiazem HCl 125 mg 01/22/23 10:19 Diltiazem 125mg/25ml Vial IV 01/22/23 10:20 ONCE ONE Diltiazem HCl 15 mg 01/22/23 10:30 Diltiazem 125mg/25ml Vial IV 01/22/23 10:31 ONCE ONE Fentanyl Citrate 50 mcg 01/22/23 09:58 01/22/23 09:58 Fentanyl 100mcg/2ml Vial IV 01/22/23 09:59 50 mcg ONCE ONE Administration Lactated Ringer's 1,000 mls @ 999 mls/hr 01/22/23 09:45 01/22/23 09:41 Lactated Ringer's 1000 Ml Bag IV 01/22/23 10:45 999 mls/hr .Q1H1M AUDELIA Administration Lactated Ringer's 1,000 mls @ 999 mls/hr 01/22/23 09:45 01/22/23 10:54 Lactated Ringer's 1000 Ml Bag IV 01/22/23 10:45 Not Given .Q1H1M AUDELIA Midazolam HCl 1 mg 01/22/23 10:01 01/22/23 10:01 Midazolam 5mg/Ml 1ml Vial IV 01/22/23 10:02 1 mg ONCE ONE Administration Midazolam HCl 1 mg 01/22/23 10:03 01/22/23 10:03 Midazolam 5mg/Ml 1ml Vial IV 01/22/23 10:04 1 mg ONCE ONE Administration ORDERS Category Date Time Status CT angio chest PE protocol Stat Cat Scan 01/22/23 10:18 Taken CXR --portable [XR chest portable] Stat Exams 01/22/23 09:43 Taken Complete Blood Count Auto Diff Stat Lab 01/22/23 09:15 Completed Comprehensive Metabolic Panel Stat Lab 01/22/23 09:15 Completed Diarrhea 23 Panel, PCR Stat Lab 01/22/23 09:44 Ordered Full Resp Panel w/COVID ([facility]) Routine Lab 01/22/23 10:10 Received Lactic Acid Stat Lab 01/22/23 10:18 Completed Magnesium Stat Lab 01/22/23 09:15 Completed Magnesium Stat Lab 01/22/23 09:15 Completed Phosphorous Stat Lab 01/22/23 09:15 Completed TSH [Thyroid Stimulating Hormone] Stat Lab 01/22/23 09:15 Completed Troponin I Q3H Lab 01/22/23 12:30 Ordered Troponin I Q3H Lab 01/22/23 15:30 Ordered Troponin I Stat Lab 01/22/23 09:15 Completed UA [Urinalysis and Microscopic] Stat Lab 01/22/23 09:44 Ordered Blood Culture Stat Micro 01/22/23 10:19 Received CA echo doppler complete Stat Y 01/22/23 10:11 Ordered ECG initial Besson Routine Y 01/22/23 09:08 Completed Medical Decision Narrative: Is an 82-year-old female presenting today with several days of diarrhea arie estion feeling very weak decreased p.o. intake now presenting with A-fib RVR with near syncope. EKG was performed when she first arrived which I personally interpreted which shows a ventricular rate of 169 she is in atrial fibrillation there is diffuse subendocardial ischemia no focal ST segment elevations to suggest a STEMI but this is concerning for rate dependent ischemia. Additionally on her physical exam patient is very ill-appearing feels like she is in a pass out so clinically she has multiple signs or symptoms of endorgan damage. She is currently anticoagulated on Xarelto and has not missed any doses. For this reason I believe in the setting of potential sepsis that she needs maximal oxygen delivery and perfusion and would benefit from cardioversion. I discussed this with her she asked that I speak to her gold leaf gilder Dr. Douglas and I did I called him on the phone and he agrees with the plan. We will attempt cardioversion in a few minutes. Risk and benefits discussed with the patient already. In the meantime we will continue to resuscitate from a sepsis standpoint the diagnosis of sepsis is still unclear at the moment.. Reassessment at 11:01 AM after initial 1 L fluid bolus patient is feeling better but still is in A-fib RVR. Her labs are returning lactate is normal there is a mild leukopenia which could be viral suppression. Patient is afebrile CT of the chest I personally interpreted and do not see focal consolidation or pulmonary embolism. Patient has no urinary symptoms at the moment. At this point I believe she likely had a preceding viral syndrome that caused her to go into A- fib RVR. Cardiology has seen the patient we are initiating diltiazem and they will continue to follow. She will likely get an inpatient echo. Patient still in A-fib RVR diltiazem just initiated now. I discussed the case with Dr. Lugo who has agreed to admit the patient for further evaluation and treatment. Currently holding off on antibiotics and not making a diagnosis of sepsis with current information. Procedures Procedural Sedation A heart and lung assessment was performed on this patient at: 10:00 Mallampati Score:: Class I ASA Class: I Preparation: microsoft net developer applied, pulse oximeter, capnometry used, supplemental O2 applied, reversal agents at bedside, suction/airway equipment at bedside and IV secured Fentanyl: IV Fentanyl dose (mcg): 50 Midazolam: IV Midazolam dose (mg): 2 Patient Tolerated Procedure: well Complications: none Miscellaneous Procedure Procedure Performed: Electrical cardioversion Location atrial fibrillation with rapid ventricular rate in setting of some endocardial ischemia near syncope and sepsis Consent was obtained risk and benefits were discussed with the patient Anterior posterior pads were placed and the patient All available airway devices were available including Ambu bag and nonrebreather patient was placed on 2 L nasal cannula and monitor had good IV access was given 50 mcg of fentanyl and 2 mg of Versed achieved adequate moderate sedation multiple attempts at synchronized cardioversion were performed at 100, and 200 J, this was unsuccessful as patient did not cardiovert She tolerated procedure well Critical Care Critical Care Time Critical Care Time: Yes Attestation: On 01/22/23, the high probability of a clinically significant, sudden or life threatening deterioration of the following system(s) required my full and direct attention, intervention and personal management. The time I documented below is in addition to time spent performing reported procedures but includes the following listed in this critical care notation. Total Time Total Critical Care Time: 35
[2023-01-22 09:49] LABS: Troponin I 0.02 ng/ml (0.00-0.034)
[2023-01-22] MEDS: FENTANYL 100MCG/2ML VIAL 50 MCG IV (09:58)
[2023-01-22] MEDS: MIDAZOLAM 5MG/ML 1ML VIAL 1 MG IV ×2 (10:01→10:03)
--- NOTE | 2023-01-22 10:11 | CA_ITS ---
APPROVED REPORT EXAM: Comprehensive 2D, Doppler, and color-flow Echocardiogram Medical Services Manager: Kirti Chau RVT Ht: 5 ft 5 in Wt: 155lbs BSA: 1.77 BP: 129/52 mmHg Indications: A-FIB,CAD,SOA,HTN,HLD, PERICARDIAL EFFUSION SEEN ON CT SCAN 2D Dimensions LVOT 1.99 cm (M/F) 1.5-2.5 LA Volume 60.00 mL LA Volume Index 33.71 mL/m2 (M/F) 16-34 M-Mode Dimensions RVDd 1.94 cm (0.9-2.6) LA Diam 3.68 cm (1.9-4.0) LVDd 3.69 cm (3.5-5.7) Ao Diam 3.16 cm (2.0-3.7) LVDs 2.39 cm (3.5-5.7) IVSd 1.29 cm (0.6-1.1) PWd 0.49 cm (0.6-1.1) EF (Teich) 65.40% FS 35.20% EDV (Teich) 57.80 mL TAPSE 1.83 (<1.7) ESV (Teich) 20.00 mL LV Diastology MED E' 12.00 (< 7 cm/sec) LAT E' 12.40 (<10 cm/sec) Aortic Valve LVOT Max 168.00 (70-110 cm/s) LVOT VTI 27.60 cm AoV Peak Aaron. 184.00 (50-130 cm/s) AO Peak GR. 13.50 mmHg AO Mean GR. 5.80 (<5 mmHg) AO VTI 32.07 (18-25 cm) NATHAN (VTI) 2.68 (2.5-4.5 cm2) Pulmonary Valve PV Peak Velocity 107.00 (50-150 cm/s) Tricuspid Valve TR P. Velocity 212.00 cm/s RAP Estimate 10.00 mmHg RVSP 28.00 mmHg Left Ventricle The left ventricle is normal size. The left ventricular systolic function is normal. The left ventricular ejection fraction is within the normal range. There is increased LV wall thickness. There is normal LV segmental wall motion. The left ventricular diastolic function is normal. LVEF is 60%. Right Ventricle The right ventricle is normal size. The right ventricular systolic function is normal. Atria The left atrium is mildly dilated. The right atrium size is normal. There is no Doppler evidence of interatrial shunt. Aortic Valve The aortic valve is mildly thickened. There is no aortic valvular stenosis. No aortic regurgitation is present. Mitral Valve The mitral valve is normal in structure. No evidence of mitral valve stenosis. Trace mitral regurgitation. Tricuspid Valve The tricuspid valve leaflets are thin and pliable. Trace tricuspid regurgitation. RVSP is normal. Pulmonic Valve The pulmonary valve is normal in structure. Trace pulmonic regurgitation. Great Vessels The aortic root is normal in size. The ascending aorta is normal in size. IVC is normal in size and collapses >50% with inspiration. Pericardium Small, circumferential pericardial effusion is present. The largest pocket is noted posteriorly measuring up to 0.7 cm in diastole. No echo indications of tamponade. Other Information Study Quality: Fair Conclusion Normal biventricular systolic function. No significant valvular stenosis or regurgitation. Small, circumferential pericardial effusion. The largest pocket is noted posteriorly measuring up to 0.7 cm in diastole. No echo indications of tamponade. The patient is noted to be in atrial fibrillation during the acquisition of the study images. Electronically signed by : Carol Laguerre MD 01/23/2023 00:51:32
[2023-01-22 10:17] LABS: Adenovirus,PCR Not Detected (NotDetected); Coronavirus 229E Not Detected (NotDetected); Coronavirus NL63 Not Detected (NotDetected); Coronavirus OC43 Not Detected (NotDetected); Coronovirus HKU1,PCR Not Detected (NotDetected); Human Metapneumovirus Not Detected (NotDetected); Influenza A, PCR Not Detected (NotDetected); Influenza AH1, 2009 Not Detected (NotDetected); Influenza AH1, PCR Not Detected (NotDetected); Influenza AH3,PCR Not Detected (NotDetected); Influenza B, PCR Not Detected (NotDetected); Parainfluenza 1, PCR Not Detected (NotDetected); Parainfluenza 2, PCR Not Detected (NotDetected); Parainfluenza 3, PCR Not Detected (NotDetected); Parainfluenza 4, PCR Not Detected (NotDetected); Respiratory Syncytial Virus Not Detected (NotDetected); Rhinovirus/Enterovirus Not Detected (NotDetected)
[2023-01-22 10:18] LABS: Magnesium 1.6 mg/dl (1.6-2.3); Phosphorous 3.4 mg/dl (2.5-4.5)
--- NOTE | 2023-01-22 10:18 | CT_ITS ---
FINAL REPORT CLINICAL HISTORY: sob FINDINGS: Thin section axial CT images of the chest were obtained with contrast. 3D reformatted images were also obtained. This study was performed with techniques to keep radiation doses as low as reasonably achievable (ALARA). Individualized dose reduction techniques using automated exposure control or adjustment of mA and/or kV according to the patient''s size were employed. There is no evidence of pulmonary embolism. There is no evidence of thoracic aortic aneurysm or dissection. There is no evidence of mediastinal or hilar mass or adenopathy. There is moderate pericardial effusion measuring up to 14 mm in thickness. There is no evidence of pulmonary mass or nodule. There is mild bibasilar atelectasis. Limited images of the upper abdomen demonstrate several renal cysts. There is a probable small splenic cyst. IMPRESSION: No evidence of pulmonary embolism. Moderate pericardial effusion. Reviewed, Interpreted and Dictated by Nael Rodriguez III, MD Transcribed by Tomasa Cazares Authenticated and [facility]
--- NOTE | 2023-01-22 10:23 | P.CONCA_ITS ---
History of Present Illness History of Present Illness Consult date: 01/22/23 Requesting physician: Hipolito Hale Consult reason: atrial fibrillation Chief complaint: near syncope, palpitations, afib History of present illness: This is an 82-year-old white female who presented to the emergency department with an episode of near syncope when getting out of the shower this morning. The patient has a history of paroxysmal atrial fibrillation and has had multiple recent visits to the emergency department for her atrial fibrillation. The patient was in the emergency department last week with atrial fibrillation with RVR. This required a beta-jennie and calcium channel jennie to get her rate under control. The patient reports that she was seen following her last emergency department visit by Dr. Pak who discontinued her calcium channel jennie. She states over the last several days that she has not felt well. She states that she has had a cough, congestion, diarrhea and decreased p.o. intake. She states that she is just felt very sick. She is short of breath which is worse with exertion and improves with rest. She denies any chest pain or pressure. She states that this morning she felt like she went back into atrial fibrillation. However, after her last hospital visit the patient did not convert to sinus rhythm she was rate controlled in atrial fibrillation so we do presume that she has been in atrial fibrillation this entire time and then went into a rapid response this morning. She denies any fever, chills, vomiting, PND or orthopnea. Cardioversion was attempted in the emergency department which was unsuccessful. [facility] Disclaimer: The information contained in this section may have been updated after the patient was seen, as this information can be updated by other users. Medical History (Updated 01/22/23 @ 11:13 by Kathe Sher APRN) A-fib Arrhythmia Arthritis Atherosclerotic cardiovascular disease CAD (coronary artery disease) Diarrhea GERD (gastroesophageal reflux disease) HLD (hyperlipidemia) HTN (hypertension) Kidney stones Osteoporosis Shortness of Breath Skin cancer Surgical History History of cardiac catheterization History of colonoscopy History of tonsillectomy Hx of local excision of skin lesion Family History Other No significant family history Social History Smoking Status: Never smoker alcohol intake: current substance use type: denies use current occupational status: retired Travel in the last 8 weeks: None household members: spouse housing: house 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 caffeine: No Review of Systems Review of Systems Review of systems:: pertinent systems reviewed and negative unless documented below Constitutional Constitutional: Reports system reviewed and no additional complaints, except as documented, Denies chills, Reports fatigue, Reports poor appetite, Reports lethargy and Reports weakness Eyes Eyes: Reports system reviewed and no additional complaints, except as documented ENT Ears, Nose, Mouth, and Throat: Reports system reviewed and no additional complaints, except as documented and Reports dizziness *Cardiovascular Cardiovascular: Reports system reviewed and no additional complaints, except as documented, Denies chest pain, Reports dyspnea, Reports dyspnea on exertion, Reports lightheadedness, Denies orthopnea, Reports palpitations and Reports rapid heart rate *Respiratory Respiratory: Reports system reviewed and no additional complaints, except as documented, Reports chest congestion, Reports cough, Reports dyspnea and Reports dyspnea on exertion *Gastrointestinal Gastrointestinal: Reports system reviewed and no additional complaints, except as documented and Reports loose stools *Genitourinary Genitourinary: Reports system reviewed and no additional complaints, except as documented *Musculoskeletal Musculoskeletal: Reports system reviewed and no additional complaints, except as documented Integumentary/Breasts Skin/Breast: Reports system reviewed and no additional complaints, except as documented *Neurologic Neurologic: Reports system reviewed and no additional complaints, except as documented, Reports dizziness and Reports weakness Psychiatric Psychiatric: Reports system reviewed and no additional complaints, except as documented Endocrine Endocrine: Reports system reviewed and no additional complaints, except as documented, Reports fatigue and Reports palpitations Hematologic/Lymphatic Hematologic/Lymphatic: Reports system reviewed and no additional complaints, except as documented Allergic/Immunologic Allergic/Immunologic: Reports system reviewed and no additional complaints, except as documented Exam Data for Last 24 hours Vital signs and Labs for Last 24 Hours: Temp Pulse Resp BP Pulse Ox O2 Del Method 98.2 F 76 13 109/72 L 96 Room Air 01/22/23 09:10 01/22/23 09:30 01/22/23 09:30 01/22/23 09:30 01/22/23 09:30 01/22/23 09:10 Laboratory Results - last 24 hr 01/22/23 09:15: WBC 4.0 L, RBC 4.61, Hgb 14.8, Hct 43.0, MCV 93.3, MCH 32.2 H, MCHC 34.5, RDW 13.5, Plt Count 338, MPV 9.5, Neut % (Auto) 51.0, Lymph % (Auto) 41.5, [place] % (Auto) 6.4, Eos % (Auto) 0.5, Baso % (Auto) 0.7, Neut # (Auto) 2.0, Lymph # (Auto) 1.6, [place] # (Auto) 0.3, Eos # (Auto) 0.0, Baso # (Auto) 0.0, Sodium 137, Potassium 3.5, Chloride 104, Carbon Dioxide 24, Anion Gap 12.5, BUN 12, Creatinine 0.90, Estimated Creat Clear 50, Estimated GFR 60, Est GFR ( Amer) 73, Glucose 132 H, Calcium 8.3 L, Total Bilirubin 0.3, AST 62 H, ALT 37, Alkaline Phosphatase 64, Troponin I 0.02, Total Protein 6.9, Albumin 4.3, Globulin 2.6, Albumin/Globulin Ratio 1.7 I & O for Last 24 hours: Intake & Output 01/19/23 01/20/23 01/21/23 01/22/23 23:59 23:59 23:59 23:59 Weight 155 lb Narrative: EKG is atrial fibrillation with a rate of [address] depression. Constitutional Constitutional: no acute distress and average body habitus *Routine HEENT Exam Head: Present normocephalic and atraumatic ENT: Present mucous membranes moist *Routine Neck Exam Neck: Present supple, full ROM and normal carotid upstroke; Absent JVD, carotid bruit or lymphadenopathy *Routine Respiratory Exam Respiratory: Present CTA bilaterally, normal respiratory effort, able to speak in complete sentences and symmetric chest movement *Routine Cardiovascular Exam Cardiovascular: Present Normal S1, Normal S2, tachycardia and irregularly irregular; Absent murmur or gallop *Routine Abdominal Exam Abdominal: Present soft and normoactive bowel sounds; Absent tenderness, distended or organomegaly *Routine Extremities Exam Extremities: Present full ROM, pulses intact and normal capillary refill; Absent cyanosis, clubbing or edema *Routine Skin Exam Skin: Present intact and warm; Absent erythema *Routine Neurological Exam Neurological: Present alert, oriented X3 and CN II-XII intact; Absent sensory deficit or motor deficit Routine Psychiatric Exam Psychiatric: Present normal affect Meds Home Medications and Allergies Home Medications Medication Instructions Recorded Confirmed Type omeprazole 20 mg tablet,delayed 20 mg PO DAILY GERD 03/17/20 01/22/23 History release cholecalciferol (vitamin D3) 25 25 mcg PO DAILY Supplement 11/14/20 01/22/23 History mcg (1,000 unit) capsule metoprolol succinate 100 mg 100 mg PO DAILY Hypertension #90 04/07/22 01/22/23 Rx tablet,extended release 24 hr tabs atorvastatin 40 mg tablet 40 mg PO HS Cholesterol 01/22/23 01/22/23 History New Prescriptions to Start Prescriptions: Allergies Allergy/AdvReac Type Severity Reaction Status Date / Time Penicillins Allergy Intermediate EDEMA Verified 04/07/22 09:37 apixaban [From Eliquis] Allergy Mild Verified 04/07/22 09:37 Sulfa (Sulfonamide Allergy Unknown Verified 04/07/22 09:37 Antibiotics) [SULFA (SULFONAMIDE ANTIBIOTICS)] Assessment and Plan *Assessment and plan (1) Rapid atrial fibrillation: Status: Resolved Category: Medical Code(s): I48.91 - Unspecified atrial fibrillation (2) Shortness of Breath: Status: Acute Category: Medical Code(s): R06.02 - Shortness of breath (3) CAD (coronary artery disease): Status: Chronic Qualifiers: Coronary Disease-Associated Artery/Lesion type: [place] artery [place] vs. transplanted heart: [place] heart Associated angina: without angina Qualified Code(s): I25.10 - Atherosclerotic heart disease of [place] coronary artery without angina pectoris Category: Medical Code(s): I25.10 - Atherosclerotic heart disease of [place] coronary artery without angina pectoris (4) HHD (hypertensive heart disease): Status: Chronic Qualifiers: Heart failure presence: without heart failure Qualified Code(s): I11.9 - Hypertensive heart disease without heart failure Category: Medical Code(s): I11.9 - Hypertensive heart disease without heart failure (5) HLD (hyperlipidemia): Status: Chronic Qualifiers: Hyperlipidemia type: mixed hyperlipidemia Qualified Code(s): E78.2 - Mixed hyperlipidemia Category: Medical Code(s): E78.5 - Hyperlipidemia, unspecified (6) Light-headedness: Status: Acute Category: Medical Code(s): R42 - Dizziness and giddiness (7) Hypertension: Status: Acute Qualifiers: Hypertension type: primary hypertension Qualified Code(s): I10 - Essential (primary) hypertension Category: Medical Code(s): I10 - Essential (primary) hypertension (8) Diarrhea: Status: Acute Qualifiers: Diarrhea type: unspecified type Qualified Code(s): R19.7 - Diarrhea, unspecified Category: Medical Code(s): R19.7 - Diarrhea, unspecified Plan Plan: 1. This is an 82-year-old female who presented to the emergency department for near syncopal episode. She was found to be in atrial fibrillation with RVR. The patient has had multiple visits to the emergency department with atrial fibrillation. She was in the emergency department last week and diltiazem was added to her beta-jennie. She was then evaluated by her primary care provider few days later and the patient reports that he stopped the diltiazem. She is now in atrial fibrillation with RVR. Cardioversion was attempted in the emergency department and was unsuccessful. Will give the patient a diltiazem bolus and start a diltiazem drip for rate control of her atrial fibrillation. 2. Should the patient become bradycardic with the diltiazem then we will have to consider permanent pacemaker placement at that time. The patient was bradycardic in the past with diltiazem, so there is concern that she may become bradycardic again with the diltiazem. However, the patient keeps going into atrial fibrillation with RVR. If she becomes bradycardic then the patient will need to have a permanent pacemaker placed for tachybradycardia syndrome because without the calcium channel jennie on board she remains in RVR. 3. The patient is on long-term anticoagulation with Xarelto. She will need to be maintained on her Xarelto at this time. 4. The patient does have a history of mild nonocclusive coronary artery disease. She denies any chest pain or pressure. Her troponin is negative. No plans for invasive left cardiac catheterization at this time. 5. Will obtain an echocardiogram to evaluate her LV function secondary to her shortness of breath and atrial fibrillation with RVR. 6. Will also obtain a CTA of the chest to rule out a PE due to her shortness of breath. 7. Sepsis protocol has been initiated. We do want to make sure that the patient does not have something else underlying going on that is causing her to have these acute exacerbations of the atrial fibrillation with RVR. Will defer her sepsis management to the hospitalist. 8. Continue her current dose of Toprol. 9. Her blood pressure is well controlled. 10. Her LDL goal is less than 55. She is on a statin. Will get a lipid panel in the morning. 11. Further recommendations will be made pending the patient's response to treatment and the results of her echocardiogram today. Thank you for the opportunity to help participate in the care of this patient. All recommendations and orders are per Dr. Laguerre
--- NOTE | 2023-01-22 10:27 | PC.NURSE ---
Sejal Hwang, charge nurse; Heydi Quezada, RN at bedside for procedure. pt was on non rebreather mask, airway supplies set up at bedside, suction set up, defib pads placed on pt. attempted to cardiovert patient, unsuccessful. 100j first attempt, unsuccessful; 1002 200j second attempt, unsuccessful; 1004 after second attempt, Dr. Hale instructed to stop with cardioversion. pt orientation return to baseline. heart rate still elevated.
--- NOTE | 2023-01-22 10:28 | PC.NURSE ---
Dr. Hale requests to wait to give Diltiazem bolus and drip.
[2023-01-22 10:37] LABS: Lactic Acid 1.7 mmol/L (0.7-2.1)
[2023-01-22 10:49] LABS: Magnesium 1.6 mg/dl (1.6-2.3); Thyroid Stimulating Hormone 2.99 uIU/mL (0.465-4.68)
--- NOTE | 2023-01-22 10:56 | PC.NURSE ---
Dr. Hale speaking with hospitalist.
[2023-01-22] MEDS: IOPAMIDOL-370 (76%);100ML BOTTLE 70 ML IV (10:57)
[2023-01-22] MEDS: SODIUM CHLORIDE 0.9% 10ML SYR (RAD ONLY) 10 ML IV (10:57)
[2023-01-22] MEDS: 0.9 % SODIUM CHLORIDE 50 ML VIAL IV (10:57)
--- NOTE | 2023-01-22 11:00 | PC.NURSE ---
call made to care management for bed placement
[2023-01-22] MEDS: dilTIAZem 25MG/5ML VIAL 15 MG IV (11:08)
[2023-01-22] MEDS: dilTIAZem HCL 100 MG in 0.9 % SODIUM CHLORIDE 100 ML IV (11:09)
[2023-01-22] MEDS: KCl 10mEq/100ml 100 ML 100 MEQ IV ×3 (11:23→18:23)
--- NOTE | 2023-01-22 11:24 | PC.NURSE ---
UA sent to lab; pt tolerated usind BSC well without complications
[2023-01-22 11:32] LABS: Microscopic, Urine URINE MICROSCOPIC (MICROSCOPIC)
[2023-01-22 11:34] LABS: Appearance,Urine CLEAR (Clear); Bilirubin,Urine Negative (Negative); Blood, Urine Negative (Negative); Color,Urine YELLOW (Yellow); Glucose,Urine (UA) Negative (Negative); Ketones,Urine 1+ (Negative); Leukocyte Esterase,Urine Negative (Negative); Nitrate,Urine Negative (Negative); PH,Urine 6.5 (5.0-8.5); Protein,Urine Negative (Negative); Specific Gravity, Urine <= 1.005 (1.005-1.030); Urobilinogen,Urine 0.2 EU/dl (0.2)
--- NOTE | 2023-01-22 11:39 | PC.NURSE ---
report called to bernarda on second floor
[2023-01-22 11:45] LABS: Squamous Epithelial Cell,Urine Occasional #/hpf (0-5)
[2023-01-22 12:09] LABS: Coronavirus 19, PCR Detected (NotDetected)
--- NOTE | 2023-01-22 12:15 | PC.NURSE ---
Pt arrived to the unit.
--- OUTSIDE RECORDS SUMMARY | 2023-01-22 13:25 | XMS_ITS | Clinical Summary ---
Author Name Unknown Address [address] [place] [address] [address] [place] [address] Phone Organization [facility] Address [address] [place] [address] Phone Care Team Providers Care Screening Tech Name Role Phone Tim Bansal MD [ ] Conditions or Problems Problem Name Problem Code Onset Date Status Entry Date Provider Comment Standard Description Annotate Benign Essential Hypertension 38594664 (SNOMED CT) Active Daxa L Benign hypertension C. Difficile colitis 481642118 (SNOMED CT) Active Daxa L Clostridium difficile colitis Medications Medication Instructions Start Date Stop Date Generic Name NDC Provider [facility] OMEPRAZOLE 20 MG TBEC QD OMEPRAZOLE [id number] Sharmila Marin ATENOLOL 50 MG TABS QD ATENOLOL [id number] Sharmila Marin VANCOCIN HCL 125 MG ORAL CAPSULE QID VANCOMYCIN HCL [id number] Sharmila Marin Medications Administered No information available. 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 Procedures No information available. Vital Signs No information available. Immunizations No information available. Advance Directives No information available.
--- NOTE | 2023-01-22 14:13 | HMH.PHAINT1 ---
Pharmacy Intervention Comments: MEDICATION RECONCILIATION COMPLETED ON PATIENT USING EXTERNAL FILL HISTORY FROM PHARMACY. -CLARENCE KIM, QUAND
[2023-01-22] MEDS: dilTIAZem HCL 100 MG in 0.9 % SODIUM CHLORIDE 100 ML 15 MG IV (16:08)
[2023-01-22] MEDS: METOPROLOL SUCCINATE XL 100MG TABLET 100 MG PO (16:08)
[2023-01-22 16:14] LABS: Troponin I 0.16 ng/ml (0.00-0.034)
[2023-01-22] MEDS: RIVAROXABAN 10MG TABLET 20 MG PO (18:18)
--- NOTE | 2023-01-22 18:26 | EXP.HP ---
History of Present Illness *Admission Date: 01/22/23 *Reason for visit:: weakness *History of present illness: Patient is a 82-year-old female with past medical history of atrial fibrillation CAD hypertension hyperlipidemia who presented to hospital with generalized weakness tiredness fatigue. According to the patient she has been feeling sick for possible 5 days. She had recurrent admissions to the emergency department for atrial fibrillation. Patient otherwise denied chest pain nausea vomiting. She complains having diarrhea and loose bowel movements. [facility] Disclaimer: The information contained in this section may have been updated after the patient was seen, as this information can be updated by other users. Medical History A-fib Arrhythmia Arthritis Atherosclerotic cardiovascular disease CAD (coronary artery disease) Diarrhea GERD (gastroesophageal reflux disease) HLD (hyperlipidemia) HTN (hypertension) Kidney stones Osteoporosis Shortness of Breath Skin cancer Surgical History History of cardiac catheterization History of colonoscopy History of tonsillectomy Hx of local excision of skin lesion Family History Other No significant family history Social History (Updated 01/22/23 @ 11:51 by Fatoumata Dougherty RN) Smoking Status: Never smoker alcohol intake: current substance use type: denies use current occupational status: retired Travel in the last 8 weeks: None household members: spouse housing: house 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 caffeine: No Review of Systems Constitutional Constitutional: Reports weakness ENT Ears, Nose, Mouth, and Throat: Reports dizziness *Neurologic Neurologic: Reports system reviewed and no additional complaints, except as documented, Reports dizziness and Reports weakness Meds Home Medications and Allergies Home Medications Medication Instructions Recorded Confirmed Type omeprazole 20 mg tablet,delayed 20 mg PO DAILY Acid Reflux 03/17/20 01/22/23 History release cholecalciferol (vitamin D3) 25 25 mcg PO DAILY Supplement 11/14/20 01/22/23 History mcg (1,000 unit) capsule metoprolol succinate 100 mg 100 mg PO DAILY Hypertension #90 04/07/22 01/22/23 Rx tablet,extended release 24 hr tabs atorvastatin 40 mg tablet 40 mg PO HS Cholesterol 01/22/23 01/22/23 History rivaroxaban 20 mg tablet (Xarelto) 20 mg PO QPMWITHMEAL Blood 01/22/23 01/22/23 History Thinner/Afib New Prescriptions to Start Prescriptions: Allergies Allergy/AdvReac Type Severity Reaction Status Date / Time Penicillins Allergy Intermediate EDEMA Verified 04/07/22 09:37 apixaban [From Eliquis] Allergy Mild Verified 04/07/22 09:37 Sulfa (Sulfonamide Allergy Unknown Verified 04/07/22 09:37 Antibiotics) [SULFA (SULFONAMIDE ANTIBIOTICS)] Exam Data for Last 24 hours Vital signs and Labs for Last 24 Hours: Temp Pulse Resp BP Pulse Ox O2 Del Method 98.6 F 63 11 L 87/44 L 94 L Room Air 01/22/23 18:15 01/22/23 18:15 01/22/23 18:15 01/22/23 18:15 01/22/23 18:15 01/22/23 18:15 Laboratory Results - last 24 hr 01/22/23 09:15: WBC 4.0 L, RBC 4.61, Hgb 14.8, Hct 43.0, MCV 93.3, MCH 32.2 H, MCHC 34.5, RDW 13.5, Plt Count 338, MPV 9.5, Neut % (Auto) 51.0, Lymph % (Auto) 41.5, [place] % (Auto) 6.4, Eos % (Auto) 0.5, Baso % (Auto) 0.7, Neut # (Auto) 2.0, Lymph # (Auto) 1.6, [place] # (Auto) 0.3, Eos # (Auto) 0.0, Baso # (Auto) 0.0, Sodium 137, Potassium 3.5, Chloride 104, Carbon Dioxide 24, Anion Gap 12.5, BUN 12, Creatinine 0.90, Estimated Creat Clear 50, Estimated GFR 60, Est GFR ( Amer) 73, Glucose 132 H, Calcium 8.3 L, Phosphorus 3.4, Magnesium 1.6 01/22/23 09:15: Magnesium 1.6, Total Bilirubin 0.3, AST 62 H, ALT 37, Alkaline Phosphatase 64, Troponin I 0.02, Total Protein 6.9, Albumin 4.3, Globulin 2.6, Albumin/Globulin Ratio 1.7, TSH 2.99 01/22/23 10:10: Chlamy pneumoniae PCR TNP, Adenovirus (PCR) Not detected, B. pertussis DNA (PCR) TNP, Coronavirus OC43 (PCR) Not detected, Coronavirus HKU1 (PCR) Not detected, Coronavirus 229E (PCR) Not detected, SARS-CoV-2 (PCR) Detected A, Coronavirus NL63 (PCR) Not detected, Human Metapneumovir PCR Not detected, Influenza A (H1) PCR Not detected, Influ A (H1N1/09) PCR Not detected, Influenza A (H3) PCR Not detected, Influenza Type A (PCR) Not detected, Influenza Type B (PCR) Not detected, M. pneumoniae (PCR) TNP, Parainfluenza 1 (PCR) Not detected, Parainfluenza 2 (PCR) Not detected, Parainfluenza 3 (PCR) Not detected, Parainfluenza 4 (PCR) Not detected, RSV (PCR) Not detected, Entero/Rhino (PCR) Not detected 01/22/23 10:18: Lactate 1.7 01/22/23 11:21: Urine Color Yellow, Urine Appearance Clear, Urine pH 6.5, Ur Specific [place] <= 1.005, Urine Protein Negative, Urine Glucose (UA) Negative, Urine Ketones 1+, Urine Blood Negative, Urine Nitrate Negative, Urine Bilirubin Negative, Urine Urobilinogen 0.2, Ur Leukocyte Esterase Negative, Urine RBC None, Urine WBC None, Ur Squamous Epith Cells Occasional 01/22/23 12:36: Troponin I 0.10 H 01/22/23 15:34: Troponin I 0.16 H I & O for Last 24 hours: Intake & Output 01/19/23 01/20/23 01/21/23 01/22/23 23:59 23:59 23:59 23:59 Intake Total 1473.250 / 1473.250 Output Total 0 / 0 Balance 1473.250 / 1473.250 Weight 68.974 kg Constitutional Constitutional: no acute distress *Routine HEENT Exam Head: Present normocephalic Eye: Present EOMI and PERRL ENT: Present mucous membranes moist *Routine Neck Exam Neck: Present supple; Absent lymphadenopathy *Routine Respiratory Exam Respiratory: Present CTA bilaterally *Routine Cardiovascular Exam Cardiovascular: Present Normal S1, Normal S2 and irregular rhythm *Routine Abdominal Exam Abdominal: Present soft and normoactive bowel sounds; Absent tenderness *Routine Rectal Exam Rectal:: deferred *Routine Genitalia Exam Genitalia:: deferred *Routine Extremities Exam Extremities: Absent cyanosis, clubbing or edema *Routine Skin Exam Skin: Present warm; Absent rash *Routine Neurological Exam Neurological: Present alert and oriented X3 Detailed Cardiovascular Exam Comments: irregular rhythym Assessment and Plan *Assessment and plan (1) Atrial fibrillation: Status: Resolved Qualifiers: Atrial fibrillation type: paroxysmal Qualified Code(s): I48.0 - Paroxysmal atrial fibrillation Category: Medical Code(s): I48.91 - Unspecified atrial fibrillation (2) Rapid atrial fibrillation: Status: Resolved Category: Medical Code(s): I48.91 - Unspecified atrial fibrillation (3) CAD (coronary artery disease): Status: Chronic Qualifiers: Coronary Disease-Associated Artery/Lesion type: [place] artery [place] vs. transplanted heart: [place] heart Associated angina: without angina Qualified Code(s): I25.10 - Atherosclerotic heart disease of [place] coronary artery without angina pectoris Category: Medical Code(s): I25.10 - Atherosclerotic heart disease of [place] coronary artery without angina pectoris (4) HLD (hyperlipidemia): Status: Chronic Qualifiers: Hyperlipidemia type: mixed hyperlipidemia Qualified Code(s): E78.2 - Mixed hyperlipidemia Category: Medical Code(s): E78.5 - Hyperlipidemia, unspecified Plan Patient is a 82-year-old female with past medical history of atrial fibrillation CAD hypertension hyperlipidemia who presented to hospital with generalized weakness tiredness fatigue. According to the patient she has been feeling sick for possible 5 days. She had recurrent admissions to the emergency department for atrial fibrillation. Patient otherwise denied chest pain nausea vomiting. She complains having diarrhea and loose bowel movements. Assessment Generalized weakness, fatigue secondary to COVID-19 infection Atrial fibrillation with RVR Elevated troponin likely demand ischemia CAD Hypertension Hyperlipidemia Plan Patient is not requiring oxygen at this time, monitor off. Stable Generalized close therapy Monitor on cardiac telemetry Consult cardiology Monitor troponin Check TSH Resume home medications DVT prophylaxis - lovenox
--- NOTE | 2023-01-22 18:44 | PC.NURSE ---
Cardizem infusing at 5 as of current.
--- NOTE | 2023-01-22 19:36 | PC.NURSE ---
Pt heart rate ranging from 33-80 BPM. VALDEMAR Sanders informed, Xavier gtt stopped at 1910.
[2023-01-22 19:43] LABS: Thyroid Stimulating Hormone 2.46 uIU/mL (0.465-4.68)
[2023-01-22] MEDS: [UNRECOGNIZED DRUG - OTHER] PO (20:20)
[2023-01-22] MEDS: CHOLECALCIFEROL PO (20:20)
[2023-01-22] MEDS: ATORVASTATIN 40MG TABLET 40 MG PO (20:20)
[2023-01-22] MEDS: PANTOPRAZOLE 40MG TABLET 40 MG PO (20:20)
[2023-01-23] VITALS (14 sets, daily range): BP systolic 80–142; BP diastolic 39–62; PULSE 50–61; RESP 12–20; TEMP 36.9–37.7; O2SAT 90–97; BMI 25.4
[2023-01-23] MEDS: 0.9 % SODIUM CHLORIDE 250 ML IV (01:16)
[2023-01-23 06:27] LABS: Basophils % 0.5 % (0.1-2.0); Hemoglobin 14.2 g/dL (12.2-16.2); Lymphocytes # 1.7 K/mm3 (0.7-4.5); Mean Corpuscular HGB Conc 33.9 g/dL (31.8-35.4); Mean Corpuscular Hemoglobin 32.3 pg (27.0-31.2); Mean Corpuscular Volume 95.3 fl (81-99); Mean Platelet Volume 9.2 fl (7.4-10.4); Monocytes # 0.4 K/mm3 (0.1-1.0); Monocytes % 8.6 % (1.7-9.3); Neutrophils # 2.3 K/mm3 (1.8-7.8); Neutrophils % 51.9 % (37.0-80.0); Platelet Count 330 K/mm3 (142-424); Red Blood Count 4.41 M/mm3 (4.20-5.40); Red Cell Distribution Width 13.5 % (11.5-17.5); White Blood Count 4.5 K/mm3 (4.8-10.8)
[2023-01-23 06:31] LABS: Chloride 103 mmol/L (98-107)
[2023-01-23 06:32] LABS: Potassium 3.9 mmoL/L (3.5-5.1); Sodium 136 mmol/L (136-145)
[2023-01-23 06:34] LABS: Anion Gap 9.9 mEq/L (5-15); Blood Urea Nitrogen 10 mg/dl (7-17); Carbon Dioxide 27 mmol/L (22.0-30.0); Creatinine Clearance Estimated 49 mL/min (50-200); Estimated Glomerular Filt Rate 81 ml/min (>60); GFR (African American) 97 ML/MIN (>60)
[2023-01-23 06:35] LABS: Calcium 7.8 mg/dl (8.4-10.2); Chol/HDL Ratio 2.4 (1-3.5); Cholesterol 95 mg/dl (140-200); Glucose 95 mg/dl (74-100); HDL Cholesterol 40 mg/dl (40-60); Triglycerides 59 mg/dl (30-150); VLDL Cholesterol 12 mg/dL (0-40)
[2023-01-23 06:46] LABS: Direct LDL Cholesterol 42.56 mg/dL (100-129)
--- NOTE | 2023-01-23 08:33 | PC.NURSE ---
Spoke with Kathe to clarify order Amiodarone. Pt's HR is in the 50s. Order is to give Amiodarone bolus and start gtt in addition to PO dose.
--- NOTE | 2023-01-23 09:02 | ECG_ITS ---
APPROVED REPORT Exam: Resting ECG HR:59 bpm ECG Measurements Heart Rate 59 AXES MI 192 P 67 QRSd 86 QRS 52 QT 402 T 60 QTc 402 Conclusion SINUS BRADYCARDIA BORDERLINE ECG UNCONFIRMED REPORT Electronically signed by : Allen Love MD 01/24/2023 10:40:00
[2023-01-23] MEDS: AMIODARONE HCL 150 MG in DEXTROSE 5 % IN WATER 100 ML 618 MG IV (09:15)
[2023-01-23 09:16] LABS: Troponin I 0.31 ng/ml (0.00-0.034)
--- NOTE | 2023-01-23 09:19 | PC.NURSE ---
Amiodarone bolus started. Myesha arevalo.
[2023-01-23] MEDS: CHOLECALCIFEROL 1,000 UNITS (25MCG) TABLET 25 MCG PO (09:20)
[2023-01-23] MEDS: AMIODARONE HCL 900 MG in DEXTROSE 5 % IN WATER 500 ML 33.2999999999999972 MG IV (09:25)
--- NOTE | 2023-01-23 09:30 | PC.NURSE ---
Amiodarone bolus complete. Amiodarone maintenance gtt infusing @ 1 mg/min, 33.3 ml/hr.
--- NOTE | 2023-01-23 09:33 | P.PN_ITS ---
Subjective Subjective Date: 01/23/23 Time: 08:30 Principal diagnosis: afib with RVR, COVID Interval history: This is an 82-year-old white female presented to the emergency department with an episode of near syncope while getting out of the shower yesterday. The patient was found to be in atrial fibrillation with RVR. The patient was given a diltiazem bolus and diltiazem drip. The patient did convert while on the diltiazem. She did get bradycardic yesterday evening and the diltiazem drip was stopped. This morning the patient remains in sinus rhythm with a heart rate in the 50s and 60s. She denies any chest pain or pressure. She states her shortness of breath has improved. She denies any lower extremity edema. She denies any racing of the heart. She denies any fever, chills, nausea, vomiting, diarrhea, PND orthopnea. She states that she is feeling much better now. Of note, the patient is COVID-positive. Exam Data for Last 24 hours Vital signs and Labs for Last 24 Hours: Temp Pulse Resp BP Pulse Ox O2 Del Method 98.4 F 54 L 16 142/62 H 94 L Room Air 01/23/23 08:00 01/23/23 09:32 01/23/23 09:32 01/23/23 09:32 01/23/23 09:32 01/23/23 09:32 Laboratory Results - last 24 hr 01/22/23 09:15: WBC 4.0 L, RBC 4.61, Hgb 14.8, Hct 43.0, MCV 93.3, MCH 32.2 H, MCHC 34.5, RDW 13.5, Plt Count 338, MPV 9.5, Neut % (Auto) 51.0, Lymph % (Auto) 41.5, [place] % (Auto) 6.4, Eos % (Auto) 0.5, Baso % (Auto) 0.7, Neut # (Auto) 2.0, Lymph # (Auto) 1.6, [place] # (Auto) 0.3, Eos # (Auto) 0.0, Baso # (Auto) 0.0, Sodium 137, Potassium 3.5, Chloride 104, Carbon Dioxide 24, Anion Gap 12.5, BUN 12, Creatinine 0.90, Estimated Creat Clear 50, Estimated GFR 60, Est GFR ( Amer) 73, Glucose 132 H, Calcium 8.3 L, Phosphorus 3.4, Magnesium 1.6 01/22/23 09:15: Magnesium 1.6, Total Bilirubin 0.3, AST 62 H, ALT 37, Alkaline Phosphatase 64, Troponin I 0.02, Total Protein 6.9, Albumin 4.3, Globulin 2.6, Albumin/Globulin Ratio 1.7, TSH 2.99 01/22/23 10:10: Chlamy pneumoniae PCR TNP, Adenovirus (PCR) Not detected, B. pertussis DNA (PCR) TNP, Coronavirus OC43 (PCR) Not detected, Coronavirus HKU1 (PCR) Not detected, Coronavirus 229E (PCR) Not detected, SARS-CoV-2 (PCR) Detected A, Coronavirus NL63 (PCR) Not detected, Human Metapneumovir PCR Not detected, Influenza A (H1) PCR Not detected, Influ A (H1N1/09) PCR Not detected, Influenza A (H3) PCR Not detected, Influenza Type A (PCR) Not detected, Influenza Type B (PCR) Not detected, M. pneumoniae (PCR) TNP, Parainfluenza 1 (PCR) Not detected, Parainfluenza 2 (PCR) Not detected, Parainfluenza 3 (PCR) Not detected, Parainfluenza 4 (PCR) Not detected, RSV (PCR) Not detected, Entero/Rhino (PCR) Not detected 01/22/23 10:18: Lactate 1.7 01/22/23 11:21: Urine Color Yellow, Urine Appearance Clear, Urine pH 6.5, Ur Specific [place] <= 1.005, Urine Protein Negative, Urine Glucose (UA) Negative, Urine Ketones 1+, Urine Blood Negative, Urine Nitrate Negative, Urine Bilirubin Negative, Urine Urobilinogen 0.2, Ur Leukocyte Esterase Negative, Urine RBC None, Urine WBC None, Ur Squamous Epith Cells Occasional 01/22/23 12:36: Troponin I 0.10 H 01/22/23 15:34: Troponin I 0.16 H 01/22/23 18:57: Troponin I 0.30 H, TSH 2.46 01/23/23 05:52: WBC 4.5 L, RBC 4.41, Hgb 14.2, Hct 42.0, MCV 95.3, MCH 32.3 H, MCHC 33.9, RDW 13.5, Plt Count 330, MPV 9.2, Neut % (Auto) 51.9, Lymph % (Auto) 38.0, [place] % (Auto) 8.6, Eos % (Auto) 1.0, Baso % (Auto) 0.5, Neut # (Auto) 2.3, Lymph # (Auto) 1.7, [place] # (Auto) 0.4, Eos # (Auto) 0.0, Baso # (Auto) 0.0, Sodium 136, Potassium 3.9, Chloride 103, Carbon Dioxide 27, Anion Gap 9.9, BUN 10, Creatinine 0.70 D, Estimated Creat Clear 49, Estimated GFR 81, Est GFR ( Amer) 97 D, Glucose 95 D, Calcium 7.8 L, Triglycerides 59, Cholesterol 95 L, LDL Cholesterol Direct 42.56 L, VLDL Cholesterol 12, HDL Cholesterol 40, Cholesterol/HDL Ratio 2.4 01/23/23 08:47: Troponin I 0.31 H I & O for Last 24 hours: Intake & Output 01/20/23 01/21/23 01/22/23 01/23/23 23:59 23:59 23:59 23:59 Intake Total 1473.250 / 1813.250 340 / 340 Output Total 0 / 0 600 / 600 Balance 1473.250 / 1813.250 -260 / -260 Weight 152 lb 1 oz 152 lb 9 oz Narrative: EKG this morning shows sinus bradycardia with a rate of 59 bpm. Constitutional Constitutional: no acute distress and average body habitus *Routine HEENT Exam Head: Present normocephalic and atraumatic ENT: Present mucous membranes moist *Routine Neck Exam Neck: Present supple, full ROM and normal carotid upstroke; Absent JVD, carotid bruit or lymphadenopathy *Routine Respiratory Exam Respiratory: Present CTA bilaterally, normal respiratory effort, able to speak in complete sentences and symmetric chest movement *Routine Cardiovascular Exam Cardiovascular: Present RRR, Normal S1 and Normal S2; Absent murmur or gallop *Routine Abdominal Exam Abdominal: Present soft and normoactive bowel sounds; Absent tenderness, distended or organomegaly *Routine Extremities Exam Extremities: Present full ROM, pulses intact and normal capillary refill; Absent cyanosis, clubbing or edema *Routine Skin Exam Skin: Present intact and warm; Absent erythema *Routine Neurological Exam Neurological: Present alert, oriented X3 and CN II-XII intact; Absent sensory deficit or motor deficit Routine Psychiatric Exam Psychiatric: Present normal affect Progress Note: A&P Assessment and plan (1) Atrial fibrillation: Status: Resolved (2) Rapid atrial fibrillation: Status: Resolved (3) CAD (coronary artery disease): Status: Chronic (4) HLD (hyperlipidemia): Status: Chronic (5) HHD (hypertensive heart disease): Status: Chronic (6) Hypertension: Status: Acute (7) Bradycardia: Status: Acute (8) COVID-19: Status: Acute Assessment and Plan Assessment and Plan for All Diagnoses:: Plan: 1. This is an 82-year-old female who presented to the emergency department for near syncopal episode. She was found to be in atrial fibrillation with RVR. The patient has had multiple emergency department visits for rapid atrial f ibrillation. The patient reports that her diltiazem at home made her feel bad and she was advised by her primary care provider not to take that medication anymore. However, this medicine does do a good job of converting the patient. She was given a diltiazem bolus and drip yesterday. She did get bradycardic and then convert to sinus rhythm. The diltiazem drip was stopped due to her bradycardia. 2. Since the patient does not want to be on diltiazem and is intolerant to it now that she has converted to sinus rhythm we will give her an amiodarone bolus and start an amiodarone drip to maintain her sinus rhythm. We will also start her on oral amiodarone 400 mg p.o. twice daily at the same time. The patient will remain on amiodarone 400 mg p.o. twice daily for 2 weeks and then we will decrease her dose to amiodarone 200 mg p.o. twice daily for 2 weeks and then down to amiodarone 200 mg daily thereafter. The patient has verbalized understanding. 3. The patient did have an elevation in her troponin which is most likely from demand ischemia due to her atrial fibrillation with rapid response and her having COVID. This is most likely a type II ND. No plans for invasive left cardiac catheterization at this time. Her coronary artery disease is likely stable. 4. Will repeat her troponin this morning to make sure that it has not increased anymore. 5. She would benefit from an outpatient ischemic evaluation once she has recovered from COVID and she is in sinus rhythm. 6. Her echocardiogram shows a normal ejection fraction. She does have a small pericardial effusion which has been persistent for the last almost 2 years. No further work-up needed. 7. Her CTA was negative for PE. 8. Her blood pressure is well controlled. 9. Her LDL goal is less than 55. Her LDL is 42. She is on a statin. 10. We will decrease her current dose of Toprol down to 50 mg p.o. daily since we are adding amiodarone at this time. 11. The patient will remain on Xarelto for long-term anticoagulation. 12. The patient will need to be on the amiodarone drip for approximately 24 hours and then remain on amiodarone as directed above. Once the patient is discharged from the hospital she will need to follow-up in cardiology clinic in 1 week on an outpatient basis. Thank you for the opportunity to help participate in the care of this patient. All recommendations and orders are per Dr. Laguerre. Addendum: Troponin is stable at 0.31. Suspect that this is demand ischemia and a type II non-STEMI. No plans for invasive left cardiac catheterization at this time. Continue with amiodarone as described above.
[2023-01-23] MEDS: AMIODARONE 200MG TABLET 400 MG PO ×2 (10:29→20:09)
[2023-01-23] MEDS: METOPROLOL SUCCINATE XL 50MG TABLET 50 MG PO (11:56)
[2023-01-23 12:56] LABS: Adenovirus F 40/41, stool Not Detected (NotDetected); Astrovirus Not Detected (NotDetected); Campylobacter Not Detected (NotDetected); Clostridium Difficile A/B, PCR Not Detected (NotDetected); Cryptosporidium Not Detected (NotDetected); Cyclospora Cayetanesis Not Detected (NotDetected); Entamoeba histolytica Not Detected (NotDetected); Enteroaggregative E coli Not Detected (NotDetected); Enteropathogenic E coli Not Detected (NotDetected); Enterotoxigenic E coli Not Detected (NotDetected); Giardia lamblia Not Detected (NotDetected); Norovirus Not Detected (NotDetected); Plesimonas Shigalloides, PCR Not Detected (NotDetected); Rotavirus A Not Detected (NotDetected); Salmonella, PCR Not Detected (NotDetected); Sapovirus Not Detected (NotDetected); Shiga-like toxin E coli Not Detected (NotDetected); Shigella Enterovasive E coli Not Detected (NotDetected); Vibrio Cholerae Not Detected (NotDetected); Vibrio, PCR Not Detected (NotDetected); Yersinia Entercolitica, PCR Not Detected (NotDetected)
--- NOTE | 2023-01-23 16:05 | PC.NURSE ---
Amiodarone gtt titrated to 16.7 ml, 0.5 mg/min @ 1525. Pt remains bradycardic. HR in the 50s. Pt remains asymptomatic. Has ambulated to BR with assist x1. Pt has had episodes of diarrhea this shift. Specimen obtained. Call light within reach. Family at bedside.
--- NOTE | 2023-01-23 17:35 | EXP.PN ---
Subjective *Date: 01/23/23 *Time: 17:35 Interval history: Patient was seen and evaluated at the bedside. denies chest pain, shortness of breath, nausea, vomiting, abdominal pain. Patient does not have any complaints at this time. feels better overall Exam Data for Last 24 hours Vital signs and Labs for Last 24 Hours: Temp Pulse Resp BP Pulse Ox O2 Del Method 98.4 F 50 L 16 134/55 L 95 Room Air 01/23/23 15:54 01/23/23 16:00 01/23/23 14:00 01/23/23 14:00 01/23/23 14:00 01/23/23 15:00 Laboratory Results - last 24 hr 01/22/23 18:57: Troponin I 0.30 H, TSH 2.46 01/23/23 05:52: WBC 4.5 L, RBC 4.41, Hgb 14.2, Hct 42.0, MCV 95.3, MCH 32.3 H, MCHC 33.9, RDW 13.5, Plt Count 330, MPV 9.2, Neut % (Auto) 51.9, Lymph % (Auto) 38.0, [place] % (Auto) 8.6, Eos % (Auto) 1.0, Baso % (Auto) 0.5, Neut # (Auto) 2.3, Lymph # (Auto) 1.7, [place] # (Auto) 0.4, Eos # (Auto) 0.0, Baso # (Auto) 0.0, Sodium 136, Potassium 3.9, Chloride 103, Carbon Dioxide 27, Anion Gap 9.9, BUN 10, Creatinine 0.70 D, Estimated Creat Clear 49, Estimated GFR 81, Est GFR ( Amer) 97 D, Glucose 95 D, Calcium 7.8 L, Triglycerides 59, Cholesterol 95 L, LDL Cholesterol Direct 42.56 L, VLDL Cholesterol 12, HDL Cholesterol 40, Cholesterol/HDL Ratio 2.4 01/23/23 08:47: Troponin I 0.31 H I & O for Last 24 hours: Intake & Output 01/20/23 01/21/23 01/22/23 01/23/23 23:59 23:59 23:59 23:59 Intake Total 1473.250 / 1813.250 500 / 500 Output Total 0 / 0 600 / 600 Balance 1473.250 / 1813.250 -100 / -100 Weight 68.974 kg 69.201 kg Constitutional Constitutional: no acute distress *Routine HEENT Exam Head: Present normocephalic Eye: Present EOMI and PERRL ENT: Present mucous membranes moist *Routine Neck Exam Neck: Present supple; Absent lymphadenopathy *Routine Respiratory Exam Respiratory: Present CTA bilaterally *Routine Cardiovascular Exam Comments: Irregular rhthm, bradycardic *Routine Abdominal Exam Abdominal: Present soft and normoactive bowel sounds; Absent tenderness *Routine Extremities Exam Extremities: Absent cyanosis, clubbing or edema *Routine Skin Exam Skin: Present warm; Absent rash *Routine Neurological Exam Neurological: Present alert and oriented X3 Assessment and Plan *Assessment and plan (1) COVID-19: Status: Acute Category: Medical Code(s): U07.1 - COVID-19 (2) CAD (coronary artery disease): Status: Chronic Qualifiers: Coronary Disease-Associated Artery/Lesion type: [place] artery [place] vs. transplanted heart: [place] heart Associated angina: without angina Qualified Code(s): I25.10 - Atherosclerotic heart disease of [place] coronary artery without angina pectoris Category: Medical Code(s): I25.10 - Atherosclerotic heart disease of [place] coronary artery without angina pectoris (3) HLD (hyperlipidemia): Status: Chronic Qualifiers: Hyperlipidemia type: mixed hyperlipidemia Qualified Code(s): E78.2 - Mixed hyperlipidemia Category: Medical Code(s): E78.5 - Hyperlipidemia, unspecified (4) Atrial fibrillation with RVR: Status: Resolved Category: Medical Code(s): I48.91 - Unspecified atrial fibrillation Plan Patient is a 82-year-old female with past medical history of atrial fibrillation CAD hypertension hyperlipidemia who presented to hospital with generalized weakness tiredness fatigue. According to the patient she has been feeling sick for possible 5 days. She had recurrent admissions to the emergency department for atrial fibrillation. Patient otherwise denied chest pain nausea vomiting. She complains having diarrhea and loose bowel movements. Assessment Generalized weakness, fatigue secondary to COVID-19 infection Atrial fibrillation with RVR Elevated troponin likely demand ischemia CAD Hypertension Hyperlipidemia Plan Patient is not requiring oxygen at this time, monitor off steroids. Monitor on cardiac telemetry Consult cardiology - loadded up with amiodaron Monitor troponin Resume home medications - metoprolol, xarelto DVT prophylaxis - xarelto
[2023-01-23] MEDS: RIVAROXABAN 10MG TABLET 20 MG PO (20:09)
[2023-01-23] MEDS: PANTOPRAZOLE 40MG TABLET 40 MG PO (20:10)
[2023-01-23] MEDS: ATORVASTATIN 40MG TABLET 40 MG PO (20:10)
[2023-01-24] VITALS (13 sets, daily range): BP systolic 89–174; BP diastolic 41–68; PULSE 40–68; RESP 14–22; TEMP 36.6–37.2; O2SAT 91–98; BMI 25.3
--- NOTE | 2023-01-24 09:25 | PC.NURSE ---
stopped amio drip after 24 hours per protocol
[2023-01-24] MEDS: CHOLECALCIFEROL 1,000 UNITS (25MCG) TABLET 25 MCG PO (09:27)
[2023-01-24] MEDS: METOPROLOL SUCCINATE XL 50MG TABLET 50 MG PO (09:27)
[2023-01-24] MEDS: AMIODARONE 200MG TABLET 400 MG PO ×2 (09:27→21:20)
[2023-01-24] MEDS: PROMETHAZINE HCL 25MG/ML 1ML VIAL 12.5 MG IV (09:43)
--- NOTE | 2023-01-24 16:14 | EXP.PN ---
Subjective *Date: 01/24/23 *Time: 16:14 Interval history: Patient was seen and evaluated at the bedside. complains of diarrhea, denies chest pain, shortness of breath, nausea, vomiting, abdominal pain. Patient does not have any complaints at this time. feels better overall Exam Data for Last 24 hours Vital signs and Labs for Last 24 Hours: Temp Pulse Resp BP Pulse Ox O2 Del Method 97.9 F 60 20 126/51 L 98 Room Air 01/24/23 12:00 01/24/23 14:00 01/24/23 14:00 01/24/23 14:00 01/24/23 14:00 01/24/23 14:27 I & O for Last 24 hours: Intake & Output 01/21/23 01/22/23 01/23/23 01/24/23 23:59 23:59 23:59 23:59 Intake Total 1473.250 / 1813.250 802 / 1046 754 / 754 Output Total 0 / 0 600 / 600 0 / 0 Balance 1473.250 / 1813.250 202 / 446 754 / 754 Weight 68.974 kg 69.201 kg 68.946 kg Constitutional Constitutional: no acute distress *Routine HEENT Exam Head: Present normocephalic Eye: Present EOMI and PERRL ENT: Present mucous membranes moist *Routine Neck Exam Neck: Present supple; Absent lymphadenopathy *Routine Respiratory Exam Respiratory: Present CTA bilaterally *Routine Cardiovascular Exam Comments: Irregular rhthm, bradycardic *Routine Abdominal Exam Abdominal: Present soft and normoactive bowel sounds; Absent tenderness *Routine Extremities Exam Extremities: Absent cyanosis, clubbing or edema *Routine Skin Exam Skin: Present warm; Absent rash *Routine Neurological Exam Neurological: Present alert and oriented X3 Assessment and Plan *Assessment and plan (1) COVID-19: Status: Acute Category: Medical Code(s): U07.1 - COVID-19 (2) CAD (coronary artery disease): Status: Chronic Qualifiers: Coronary Disease-Associated Artery/Lesion type: [place] artery [place] vs. transplanted heart: [place] heart Associated angina: without angina Qualified Code(s): I25.10 - Atherosclerotic heart disease of [place] coronary artery without angina pectoris Category: Medical Code(s): I25.10 - Atherosclerotic heart disease of [place] coronary artery without angina pectoris (3) HLD (hyperlipidemia): Status: Chronic Qualifiers: Hyperlipidemia type: mixed hyperlipidemia Qualified Code(s): E78.2 - Mixed hyperlipidemia Category: Medical Code(s): E78.5 - Hyperlipidemia, unspecified (4) Atrial fibrillation with RVR: Status: Resolved Category: Medical Code(s): I48.91 - Unspecified atrial fibrillation Plan Patient is a 82-year-old female with past medical history of atrial fibrillation CAD hypertension hyperlipidemia who presented to hospital with generalized weakness tiredness fatigue. According to the patient she has been feeling sick for possible 5 days. She had recurrent admissions to the emergency department for atrial fibrillation. Patient otherwise denied chest pain nausea vomiting. She complains having diarrhea and loose bowel movements. Assessment Generalized weakness, fatigue secondary to COVID-19 infection Atrial fibrillation with RVR - improved Elevated troponin likely demand ischemia CAD Hypertension Hyperlipidemia Plan Patient is not requiring oxygen at this time, monitor off steroids. Monitor on cardiac telemetry Consult cardiology - loadded up with amiodaron, now on PO amiodarone gentle IV fluids given patient is having Diarrhea Monitor troponin Resume home medications - metoprolol, xarelto DVT prophylaxis - xarelto dc likely tomorrow
[2023-01-24] MEDS: RIVAROXABAN 10MG TABLET 20 MG PO (17:42)
[2023-01-24] MEDS: 0.9 % SODIUM CHLORIDE 1000ML 1,000 ML 75 ML IV (17:43)
[2023-01-24] MEDS: PANTOPRAZOLE 40MG TABLET 40 MG PO (21:20)
[2023-01-24] MEDS: ATORVASTATIN 40MG TABLET 40 MG PO (21:20)
[2023-01-25] VITALS (9 sets, daily range): BP systolic 105–153; BP diastolic 45–64; PULSE 50–61; RESP 13–23; TEMP 36.8–37.4; O2SAT 91–100; BMI 25.6; BMI 25.3
[2023-01-25] MEDS: 0.9 % SODIUM CHLORIDE 1000ML 1,000 ML 75 ML IV (04:46)
[2023-01-25] MEDS: AMIODARONE 200MG TABLET 400 MG PO ×2 (09:02→17:18)
[2023-01-25] MEDS: METOPROLOL SUCCINATE XL 50MG TABLET 50 MG PO (09:02)
[2023-01-25] MEDS: CHOLECALCIFEROL 1,000 UNITS (25MCG) TABLET 25 MCG PO (09:02)
[2023-01-25 10:33] LABS: Chloride 109 mmol/L (98-107); Potassium 4.1 mmoL/L (3.5-5.1); Sodium 136 mmol/L (136-145)
[2023-01-25 10:36] LABS: Anion Gap 11.1 mEq/L (5-15); Blood Urea Nitrogen 10 mg/dl (7-17); Carbon Dioxide 20 mmol/L (22.0-30.0); Creatinine Clearance Estimated 49 mL/min (50-200); Estimated Glomerular Filt Rate 81 ml/min (>60); GFR (African American) 97 ML/MIN (>60)
[2023-01-25 10:37] LABS: Calcium 7.9 mg/dl (8.4-10.2); Glucose 106 mg/dl (74-100)
[2023-01-25] MEDS: DOXYCYCLINE HYCL 100 MG TABLET PO (13:46)
--- NOTE | 2023-01-25 16:57 | P.DS_ITS ---
General Admission date:: 01/22/23 HPI HPI HPI: Patient is a 82-year-old female with past medical history of atrial fibrillation CAD hypertension hyperlipidemia who presented to hospital with generalized weakness tiredness fatigue. According to the patient she has been feeling sick for possible 5 days. She had recurrent admissions to the emergency department for atrial fibrillation. Patient otherwise denied chest pain nausea vomiting. She complains having diarrhea and loose bowel movements. Hospital Course Hospital Course Hospital Course: Patient was seen and evaluated at the bedside on the day of discharge. Patient is stable for discharge. Patient wishes to be discharged. All patient questions were answered and patient was given time to ask questions. Patient was discharged in stable condition. See same date progress note Exam Data for Last 24 hours Vital signs and Labs for Last 24 Hours: Temp Pulse Resp BP Pulse Ox O2 Del Method 98.6 F 55 L 16 149/56 H 100 Room Air 01/25/23 16:00 01/25/23 16:00 01/25/23 16:00 01/25/23 16:00 01/25/23 16:00 01/25/23 16:00 Laboratory Results - last 24 hr 01/22/23 12:48: Stl Aeromonas (PCR) Not detected, Stl C. cayetanensis PCR Not detected, Stool Rotavirus (PCR) Not detected, Stl Adenov F 40/41 PCR Not detected, Stool Astrovirus (PCR) Not detected, Stool Campylobacter PCR Not detected, Stl C.difficile Tox PCR Not detected, Stool Cryptosporidium PCR Not detected, Stl E.coli Shiga Tox PCR Not detected, Stool E coli O157 PCR TNP, Stl Enterotoxigenic E PCR Not detected, Stool EPEC (PCR) Not detected, Stool EAEC (PCR) Not detected, Stl E. histolytica PCR Not detected, Stool Giardia [place] PCR Not detected, Stool Salmonella PCR Not detected, Stool Sapovirus (PCR) Not detected, Stl P. shigelloides PCR Not detected, Stl Shigella/EIEC PCR Not detected, St Y.enterocolitica PCR Not detected, Stool Vibrio (PCR) Not detected, Stl Vibrio cholerae PCR Not detected, Stl Norovirus GI/GII PCR Not detected 01/25/23 10:11: Sodium 136, Potassium 4.1, Chloride 109 H, Carbon Dioxide 20 L, Anion Gap 11.1, BUN 10, Creatinine 0.70, Estimated Creat Clear 49, Estimated GFR 81, Est GFR ( Amer) 97, Glucose 106 H, Calcium 7.9 L I & O for Last 24 hours: Intake & Output 01/22/23 01/23/23 01/24/23 01/25/23 23:59 23:59 23:59 23:59 Intake Total 1473.250 / 1813.250 802 / 1046 1384 / 1384 1562 / 1562 Output Total 0 / 0 600 / 600 0 / 0 0 / 0 Balance 1473.250 / 1813.250 202 / 446 1384 / 1384 1562 / 1562 Weight 68.974 kg 69.201 kg 68.946 kg 69 kg Results Data Completed and Pending Labs on day of discharge: Labs from last 24 hours 01/25/23 01/22/23 10:11 12:48 Sodium 136 Potassium 4.1 Chloride 109 H Carbon Dioxide 20 L Anion Gap 11.1 BUN 10 Creatinine 0.70 Estimated Creat Clear 49 Estimated GFR 81 Est GFR ( Amer) 97 Glucose 106 H Calcium 7.9 L Stl Aeromonas (PCR) Not detected Stl C. [place]ensis PCR Not detected Stool Rotavirus (PCR) Not detected Stl Adenov F 40/41 PCR Not detected Stool Astrovirus (PCR) Not detected Stool Campylobacter PCR Not detected Stl C.difficile Tox PCR Not detected Stool Cryptosporidium PCR Not detected Stl E.coli Shiga Tox PCR Not detected Stool E coli O157 PCR TNP Stl Enterotoxigenic E PCR Not detected Stool EPEC (PCR) Not detected Stool EAEC (PCR) Not detected Stl E. histolytica PCR Not detected Stool Giardia Lamblia PCR Not detected Stool Salmonella PCR Not detected Stool Sapovirus (PCR) Not detected Stl P. shigelloides PCR Not detected Stl Shigella/EIEC PCR Not detected St Y.enterocolitica PCR Not detected Stool Vibrio (PCR) Not detected Stl Vibrio cholerae PCR Not detected Stl Norovirus GI/GII PCR Not detected DS: Diagnosis Discharge Diagnosis (1) COVID-19: Status: Acute Code(s): U07.1 - COVID-19 (2) CAD (coronary artery disease): Status: Chronic Code(s): I25.10 - Atherosclerotic heart disease of [place] coronary artery without angina pectoris Qualifiers: Coronary Disease-Associated Artery/Lesion type: [place] artery [place] vs. transplanted heart: [place] heart Associated angina: without angina Qualified Code(s): I25.10 - Atherosclerotic heart disease of [place] coronary artery without angina pectoris (3) HLD (hyperlipidemia): Status: Chronic Code(s): E78.5 - Hyperlipidemia, unspecified Qualifiers: Hyperlipidemia type: mixed hyperlipidemia Qualified Code(s): E78.2 - Mixed hyperlipidemia (4) Atrial fibrillation with RVR: Status: Resolved Code(s): I48.91 - Unspecified atrial fibrillation Meds Home Medications and Allergies Home Medications Medication Instructions Recorded Confirmed Type omeprazole 20 mg tablet,delayed 20 mg PO DAILY Acid Reflux 03/17/20 01/22/23 History release cholecalciferol (vitamin D3) 25 25 mcg PO DAILY Supplement 11/14/20 01/22/23 History mcg (1,000 unit) capsule atorvastatin 40 mg tablet 40 mg PO HS Cholesterol 01/22/23 01/22/23 History rivaroxaban 20 mg tablet (Xarelto) 20 mg PO QPMWITHMEAL Blood 01/22/23 01/22/23 History Thinner/Afib amiodarone 200 mg tablet 400 mg PO BID 14 days #28 tabs 01/25/23 Rx doxycycline hyclate 100 mg tablet 100 mg PO Q12H #7 tabs 01/25/23 Rx metoprolol succinate 50 mg 50 mg PO DAILY #30 tabs 01/25/23 Rx tablet,extended release 24 hr (Toprol XL) New Prescriptions to Start Prescriptions: amiodarone Lukasz Lugo doxycycline hyclate Lukasz Lugo metoprolol succinate [Toprol XL] Lukasz Lugo Allergies Allergy/AdvReac Type Severity Reaction Status Date / Time Penicillins Allergy Intermediate EDEMA Verified 04/07/22 09:37 apixaban [From Eliquis] Allergy Mild Verified 04/07/22 09:37 Sulfa (Sulfonamide Allergy Unknown Verified 04/07/22 09:37 Antibiotics) [SULFA (SULFONAMIDE ANTIBIOTICS)] Discharge Plan Disposition Patient Disposition: Home, Self-Care Condition: Fair Discharge Order Discharge Orders: Discharge Order (Routine); Ordered 01/25/23 Ordered By: Lukasz Lugo Follow up Plan Follow up with: Lv Laguerre MD [Staff Physician] - Enter time for follow up (The office will call you with a follow up appt. ) Prescriptions/Medication Reconciliation: New amiodarone 200 mg Tablet 400 mg PO BID 14 Days Qty: 28 0RF metoprolol succinate [Toprol XL] 50 mg Tablet Extended Release 24 Hr 50 mg PO DAILY Qty: 30 0RF doxycycline hyclate 100 mg Tablet 100 mg PO Q12H Qty: 7 0RF Continued cholecalciferol (vitamin D3) 25 mcg (1,000 unit) capsule 25 mcg PO DAILY omeprazole 20 MG tablet,delayed release (DR/EC) 20 mg PO DAILY atorvastatin 40 mg tablet 40 mg PO HS Xarelto 20 mg tablet 20 mg PO QPMWITHMEAL Patient Comments: TAKE 1 TABLET BY MOUTH ONCE DAILY WITH EVENING MEAL FOR BLOOD THINNER Discontinued metoprolol succinate 100 mg tablet extended release 24 hr 100 mg PO DAILY Qty: 90 1RF Problem Reconciliation Problems Reviewed?: Yes Patient Discharge Instructions ACTIVITY: Ambulate as tolerated DIET: low fat, low cholesterol Patient Instructions: DI for Cardioversion, DI for Atrial Fibrillation, DI for COVID-19 (Suspected or Confirmed ) Providers Primary Care Provider: Provider,Referral Admit Provider: Lukasz Lugo Attending Provider: Lukasz Lugo
[2023-01-25] MEDS: RIVAROXABAN 10MG TABLET 20 MG PO (17:18)
== END 2023-01-25 17:30 | disposition home or self-care (01) | DRG 280 ==
LOC: ER 09:52 → 2ND 11:34
PROVIDERS: Nurse Practitioner Family; Admitting Provider Internal Medicine; Emergency Provider Student in an Organized Health Care Education/Training Program; Visit Provider Internal Medicine
DX: I48.0 Paroxysmal atrial fibrillation (principal); U07.1 COVID-19; I21.A1 Myocardial infarction type 2; I25.10 Atherosclerotic heart disease of native coronary artery without angina pectoris; E78.2 Mixed hyperlipidemia; I11.9 Hypertensive heart disease without heart failure; M19.90 Unspecified osteoarthritis, unspecified site; E78.5 Hyperlipidemia, unspecified; Z85.828 Personal history of other malignant neoplasm of skin; K21.9 Gastro-esophageal reflux disease without esophagitis; R19.7 Diarrhea, unspecified; R77.8 Other specified abnormalities of plasma proteins
CPT/HCPCS: 36415; 71045; 71275; 80048; 80053; 80061; 81001; 83605; 83735; 84100; 84443; 84484; 85025; 87040; 87507; 87632; 87635; 92960; 93005; 93306; 99291; J0282; J7060; Q9967

== ENCOUNTER → 2023-02-10 10:20 | Outpatient (CLI) | payer MEDICARE, OTHER, SELFPAY ==
[2023-02-10 11:10] LABS: Basophils % 0.2 % (0.1-2.0); Eosinophils # 0.6 K/mm3 (0.0-0.4); Eosinophils % 6.7 % (0.1-12.0); Hematocrit 43.6 % (37.0-47.0); Hemoglobin 14.7 g/dL (12.2-16.2); Lymphocytes # 1.1 K/mm3 (0.7-4.5); Lymphocytes % 13.9 % (10-50); Mean Corpuscular HGB Conc 33.8 g/dL (31.8-35.4); Mean Corpuscular Hemoglobin 31.9 pg (27.0-31.2); Mean Corpuscular Volume 94.5 fl (81-99); Mean Platelet Volume 9.8 fl (7.4-10.4); Monocytes # 0.5 K/mm3 (0.1-1.0); Monocytes % 5.8 % (1.7-9.3); Neutrophils % 73.4 % (37.0-80.0); Platelet Count 419 K/mm3 (142-424); Red Blood Count 4.62 M/mm3 (4.20-5.40); Red Cell Distribution Width 13.7 % (11.5-17.5); White Blood Count 8.2 K/mm3 (4.8-10.8)
[2023-02-10 12:05] LABS: Alanine Aminotransferase 26 U/L (12-78); Albumin Level 3.8 g/dl (3.5-5.0); Albumin/Globulin Ratio 1.6 (1.1-1.8); Alkaline Phosphatase 46 U/L (38-126); Aspartate Amino Transferase 34 U/L (14-36); Bilirubin,Total 0.8 mg/dl (0.2-1.3); Blood Urea Nitrogen 13 mg/dl (7-17); Calcium 9.2 mg/dl (8.4-10.2); Carbon Dioxide 26 mmol/L (22.0-30.0); Chloride 102 mmol/L (98-107); Estimated Glomerular Filt Rate 60 ml/min (>60); GFR (African American) 73 ML/MIN (>60); Globulin 2.4 g/dL (1.3-3.2); Glucose 108 mg/dl (74-100); Magnesium 1.7 mg/dl (1.6-2.3); Sodium 136 mmol/L (136-145); Total Protein,Serum 6.2 g/dl (6.3-8.2)
[2023-02-10 12:32] LABS: Thyroid Stimulating Hormone 2.95 uIU/mL (0.465-4.68)
== END ==
PROVIDERS: PCP Nurse Practitioner Family; Visit Provider Nurse Practitioner Family
DX: I48.0 Paroxysmal atrial fibrillation (principal); R11.0 Nausea; R63.4 Abnormal weight loss
CPT/HCPCS: 36415; 80053; 83735; 84443; 85025

== ENCOUNTER 2023-02-24 04:45 | Observation (INO) | payer MEDICARE, OTHER, SELFPAY ==
[2023-02-24] VITALS (9 sets, daily range): BP systolic 124–169; BP diastolic 64–87; PULSE 57–122; RESP 12–19; TEMP 36.3–37.2; O2SAT 96–99; BMI 23.3; BMI 24.6
--- NOTE | 2023-02-24 04:46 | ECG_ITS ---
APPROVED REPORT Exam: Resting ECG HR:124 bpm ECG Measurements Heart Rate 124 AXES QRSd 94 QRS 57 QT 308 T 267 QTc 382 Conclusion ATRIAL FIBRILLATION WITH RAPID VENTRICULAR RESPONSE ST DEVIATION AND MODERATE T-WAVE ABNORMALITY, CONSIDER ANTEROLATERAL ISCHEMIA [-0.1+ mV T-WAVE IN V3-V6] ST DEVIATION AND MODERATE T-WAVE ABNORMALITY, CONSIDER INFERIOR ISCHEMIA [-0.1+ mV T-WAVE IN II/aVF] ABNORMAL ECG UNCONFIRMED REPORT Electronically signed by : Allen Love MD 02/25/2023 17:12:55
--- NOTE | 2023-02-24 04:51 | HMH.EDGENADL ---
Discharge Plan Disposition Patient Disposition: Admitted Prescriptions Prescriptions: No Action cholecalciferol (vitamin D3) 25 mcg (1,000 unit) capsule 25 mcg PO DAILY ondansetron 8 mg tablet,disintegrating 8 mg PO Q8H PRN (Reason: nausea and vomiting) 5 Days Qty: 15 0RF amiodarone 200 mg tablet 200 mg PO BID Qty: 60 0RF omeprazole 20 MG tablet,delayed release (DR/EC) 20 mg PO DAILY atorvastatin 40 mg tablet 40 mg PO HS Xarelto 20 mg tablet 20 mg PO QPMWITHMEAL Patient Comments: TAKE 1 TABLET BY MOUTH ONCE DAILY WITH EVENING MEAL FOR BLOOD THINNER metoprolol succinate [Toprol XL] 50 mg Tablet Extended Release 24 Hr 50 mg PO DAILY Qty: 30 0RF Referrals Follow up/Referrals: Allen Love MD [Primary Care Provider] - See instructions Clinical Impressions Clinical Impression: Atrial fibrillation with rapid ventricular response, Acute hypokalemia Discharge ED Provider: Jose Brambila General Adult HPI General Chief complaint: Arrhythmia/Palpitations Stated complaint: chest pain Time Seen by Provider: 02/24/23 04:49 Mode of Arrival: Ambulatory Source of Information: Patient Limitations: No Limitations Description of Symptoms (Recalled from ER Triage Doc. by RN): pt c/o tighness pain in between shoulders that startes @ 2:30 this morning. pt states when she has this pain she is usually in afib. History of Present Illness HPI narrative: 82-year-old female, history of A-fib on chronic Xarelto, metoprolol, recent admission for A-fib RVR, loaded and discharged on amiodarone presents with recurrent A-fib. She reports that she always knows when she is in atrial fibrillation. She reports she had sudden onset of palpitations and discomfort this morning at 2:30 AM. She reports that she had a recent episode of A-fib that self resolved on . She was recently taken down from 200 twice daily to 200 daily of her amiodarone. She is continue to take metoprolol succinate 50 mg as prescribed. She has missed no doses of her Xarelto. She reports that between her most recent admission and now she was diagnosed with COVID. She has had poor p.o. intake, GI distress and persistent diarrhea which she says worsens every time she takes the amiodarone. She was previously on diltiazem but this was discontinued secondary to side effects. Related Data Home Medications Medication Instructions Recorded Confirmed omeprazole 20 mg tablet,delayed 20 mg PO DAILY Acid Reflux 03/17/20 02/24/23 release cholecalciferol (vitamin D3) 25 25 mcg PO DAILY Supplement 11/14/20 02/24/23 mcg (1,000 unit) capsule atorvastatin 40 mg tablet 40 mg PO HS Cholesterol 01/22/23 02/24/23 rivaroxaban 20 mg tablet (Xarelto) 20 mg PO QPMWITHMEAL Blood 01/22/23 02/24/23 Thinner/Afib Previous Rx's Medication Instructions Recorded metoprolol succinate 50 mg 50 mg PO DAILY #30 tabs 01/25/23 tablet,extended release 24 hr (Toprol XL) amiodarone 200 mg tablet 200 mg PO BID #60 tabs 02/02/23 ondansetron 8 mg disintegrating 8 mg PO Q8H PRN nausea and 02/02/23 tablet vomiting 5 days #15 tabs Allergies Allergy/AdvReac Type Severity Reaction Status Date / Time Penicillins Allergy Intermediate EDEMA Verified 02/02/23 09:45 apixaban [From Eliquis] Allergy Mild Verified 02/02/23 09:45 Sulfa (Sulfonamide Allergy Unknown Verified 02/02/23 09:45 Antibiotics) [SULFA (SULFONAMIDE ANTIBIOTICS)] [facility] Disclaimer: The information contained in this section may have been updated after the patient was seen, as this information can be updated by other users. Medical History A-fib Arrhythmia Arthritis Atherosclerotic cardiovascular disease CAD (coronary artery disease) COVID-19 Diarrhea GERD (gastroesophageal reflux disease) HLD (hyperlipidemia) HTN (hypertension) Kidney stones Osteoporosis Shortness of Breath Skin cancer Surgical
[2023-02-24 05:09] LABS: Basophils % 0.3 % (0.1-2.0); Eosinophils # 1.1 K/mm3 (0.0-0.4); Eosinophils % 15.1 % (0.1-12.0); Hematocrit 45.9 % (37.0-47.0); Lymphocytes # 1.7 K/mm3 (0.7-4.5); Lymphocytes % 22.3 % (10-50); Mean Corpuscular HGB Conc 32.7 g/dL (31.8-35.4); Mean Corpuscular Hemoglobin 31.1 pg (27.0-31.2); Mean Corpuscular Volume 95.1 fl (81-99); Mean Platelet Volume 10.1 fl (7.4-10.4); Monocytes # 0.4 K/mm3 (0.1-1.0); Monocytes % 4.7 % (1.7-9.3); Neutrophils # 4.3 K/mm3 (1.8-7.8); Neutrophils % 57.6 % (37.0-80.0); Platelet Count 329 K/mm3 (142-424); Red Blood Count 4.82 M/mm3 (4.20-5.40); Red Cell Distribution Width 14.4 % (11.5-17.5); White Blood Count 7.4 K/mm3 (4.8-10.8)
[2023-02-24 05:10] LABS: Chloride 103 mmol/L (98-107); Sodium 139 mmol/L (136-145)
[2023-02-24 05:13] LABS: Alanine Aminotransferase 31 U/L (12-78); Albumin Level 4.2 g/dl (3.5-5.0); Albumin/Globulin Ratio 1.5 (1.1-1.8); Alkaline Phosphatase 61 U/L (38-126); Anion Gap 12.8 mEq/L (5-15); Aspartate Amino Transferase 39 U/L (14-36); Blood Urea Nitrogen 12 mg/dl (7-17); Carbon Dioxide 26 mmol/L (22.0-30.0); Creatinine Clearance Estimated 45 mL/min (50-200); Estimated Glomerular Filt Rate 53 ml/min (>60); GFR (African American) 65 ML/MIN (>60); Globulin 2.8 g/dL (1.3-3.2)
[2023-02-24 05:14] LABS: Calcium 8.9 mg/dl (8.4-10.2); Glucose 119 mg/dl (74-100)
[2023-02-24 05:15] LABS: Potassium 2.8 mmoL/L (3.5-5.1)
[2023-02-24 05:19] LABS: Magnesium 1.6 mg/dl (1.6-2.3)
--- NOTE | 2023-02-24 05:20 | PC.NURSE ---
in room talking with patient at this time.
[2023-02-24 05:25] LABS: Troponin I 0.03 ng/ml (0.00-0.034)
--- NOTE | 2023-02-24 05:35 | PC.NURSE ---
on phone with Hospitalist at this time for possible admission.
--- NOTE | 2023-02-24 05:38 | PC.NURSE ---
notified house detective of admission
--- NOTE | 2023-02-24 05:38 | PC.NURSE ---
patient admitted to [facility] per hospitalist at this time.
--- NOTE | 2023-02-24 06:00 | EXP.HP ---
History of Present Illness *Admission Date: 02/24/23 *Reason for visit:: weakness *History of present illness: This is a 82-year-old female with past medical history of CAD hypertension hyperlipidemia, A-fib on chronic Xarelto, metoprolol, recent admission for A-fib RVR, discharged on amiodarone presents with recurrent A-fib. According to the patient she has been feeling sick since then. She complains having diarrhea and loose bowel movements. Also, was COVID positive. patient was recently seen at the cardiology office for follow up. Was in sinus rhythm Stated her appetite is improving slowly. Her infection is cleared. She reported sudden onset of palpitations and discomfort this morning at 2:30 AM, as well as recent episode on . She was recently taken down from 200 twice daily to once a day of her amiodarone, and metoprolol succinate 50 mg daily as prescribed. She has had poor p.o. intake, GI distress and persistent diarrhea which she blame on amiodarone. She was previously on diltiazem but this was discontinued secondary to side effects. admitted for further management. [facility] Disclaimer: The information contained in this section may have been updated after the patient was seen, as this information can be updated by other users. Medical History (Updated 02/24/23 @ 07:18 by Henri Peña APRN) A-fib Arrhythmia Arthritis Atherosclerotic cardiovascular disease CAD (coronary artery disease) COVID-19 Diarrhea GERD (gastroesophageal reflux disease) HLD (hyperlipidemia) HTN (hypertension) Kidney stones Osteoporosis Shortness of Breath Skin cancer Surgical History History of cardiac catheterization History of colonoscopy History of tonsillectomy Hx of local excision of skin lesion Family History Other No significant family history Social History Smoking Status: Never smoker alcohol intake: current substance use type: denies use current occupational status: retired Travel in the last 8 weeks: None household members: spouse housing: house current occupation: RETIRED [employer] caffeine: No Review of Systems Review of Systems Review of systems:: pertinent systems reviewed and negative unless documented below Meds Home Medications and Allergies Home Medications Medication Instructions Recorded Confirmed Type omeprazole 20 mg tablet,delayed 20 mg PO DAILY Acid Reflux 03/17/20 02/24/23 History release cholecalciferol (vitamin D3) 25 25 mcg PO DAILY Supplement 11/14/20 02/24/23 History mcg (1,000 unit) capsule atorvastatin 40 mg tablet 40 mg PO HS Cholesterol 01/22/23 02/24/23 History rivaroxaban 20 mg tablet (Xarelto) 20 mg PO QPMWITHMEAL Blood 01/22/23 02/24/23 History Thinner/Afib metoprolol succinate 50 mg 50 mg PO DAILY #30 tabs 01/25/23 02/24/23 Rx tablet,extended release 24 hr (Toprol XL) amiodarone 200 mg tablet 200 mg PO PM atrial fibrillation 02/24/23 02/24/23 History New Prescriptions to Start Prescriptions: Allergies Allergy/AdvReac Type Severity Reaction Status Date / Time Penicillins Allergy Intermediate EDEMA Verified 02/02/23 09:45 apixaban [From Eliquis] Allergy Mild Verified 02/02/23 09:45 Sulfa (Sulfonamide Allergy Unknown Verified 02/02/23 09:45 Antibiotics) [SULFA (SULFONAMIDE ANTIBIOTICS)] Exam Data for Last 24 hours Vital signs and Labs for Last 24 Hours: Temp Pulse Resp BP Pulse Ox 97.6 F 112 H 14 162/86 H 99 02/24/23 05:52 02/24/23 05:52 02/24/23 05:52 02/24/23 05:52 02/24/23 05:30 Laboratory Results - last 24 hr 02/24/23 04:55: WBC 7.4, RBC 4.82, Hgb 15.0, Hct 45.9, MCV 95.1, MCH 31.1, MCHC 32.7, RDW 14.4, Plt Count 329, MPV 10.1, Neut % (Auto) 57.6, Lymph % (Auto) 22.3, [place] % (Auto) 4.7, Eos % (Auto) 15.1 H, Baso %
--- NOTE | 2023-02-24 06:11 | PC.NURSE ---
Patient arrived to floor via wheelchair at 06:08.
[2023-02-24 07:29] LABS: Alanine Aminotransferase 22 U/L (12-78); Albumin Level 3.6 g/dl (3.5-5.0); Albumin/Globulin Ratio 1.5 (1.1-1.8); Alkaline Phosphatase 52 U/L (38-126); Anion Gap 9.9 mEq/L (5-15); Aspartate Amino Transferase 31 U/L (14-36); Bilirubin,Total 0.9 mg/dl (0.2-1.3); Blood Urea Nitrogen 10 mg/dl (7-17); Calcium 8.7 mg/dl (8.4-10.2); Carbon Dioxide 25 mmol/L (22.0-30.0); Chloride 104 mmol/L (98-107); Creatinine Clearance Estimated 48 mL/min (50-200); Estimated Glomerular Filt Rate 60 ml/min (>60); GFR (African American) 73 ML/MIN (>60); Globulin 2.4 g/dL (1.3-3.2); Glucose 114 mg/dl (74-100); Magnesium 1.9 mg/dl (1.6-2.3); Potassium 3.9 mmoL/L (3.5-5.1); Sodium 135 mmol/L (136-145)
[2023-02-24 07:30] LABS: Basophils % 0.2 % (0.1-2.0); Eosinophils # 0.7 K/mm3 (0.0-0.4); Eosinophils % 9.4 % (0.1-12.0); Hematocrit 40.8 % (37.0-47.0); Hemoglobin 13.7 g/dL (12.2-16.2); Lymphocytes # 0.9 K/mm3 (0.7-4.5); Lymphocytes % 12.8 % (10-50); Mean Corpuscular HGB Conc 33.5 g/dL (31.8-35.4); Mean Corpuscular Hemoglobin 31.1 pg (27.0-31.2); Mean Platelet Volume 9.8 fl (7.4-10.4); Monocytes # 0.3 K/mm3 (0.1-1.0); Monocytes % 4.5 % (1.7-9.3); Neutrophils # 5.3 K/mm3 (1.8-7.8); Neutrophils % 73.2 % (37.0-80.0); Platelet Count 286 K/mm3 (142-424); Red Blood Count 4.39 M/mm3 (4.20-5.40); Red Cell Distribution Width 14.2 % (11.5-17.5); White Blood Count 7.3 K/mm3 (4.8-10.8)
--- NOTE | 2023-02-24 07:36 | HMH.PHAINT1 ---
Pharmacy Intervention Comments: Med reconciliation completed using external fill history and patient interview. She states that she only takes amiodarone once daily at 8 pm and she has not taken the ondansetron.
--- NOTE | 2023-02-24 07:56 | PC.NURSE ---
Patient arrived to unit at 0608 via w/c. Patient is alert and orient X4. No pain upon arrival. Denies SOB or chest pain. No edema noted. Lung sounds clear. Heart rate noted with an irregular rhythm. Patient oriented to room, educated on the use of the call light, bed controller and tv controller with a voice of understanding. Patient is currently laying in bed with via bedside.
--- NOTE | 2023-02-24 07:59 | ECG_ITS ---
APPROVED REPORT Exam: Resting ECG HR:57 bpm ECG Measurements Heart Rate 57 AXES MO 135 P -2 QRSd 86 QRS 55 QT 475 T 87 QTc [address] DEVIATION AND MODERATE T-WAVE ABNORMALITY, CONSIDER ANTEROLATERAL ISCHEMIA [-0.1+ mV T-WAVE IN V3-V6] ABNORMAL ECG UNCONFIRMED REPORT Electronically signed by : Allen Love MD 02/25/2023 17:12:42
--- OUTSIDE RECORDS SUMMARY | 2023-02-24 08:15 | XMS_ITS | Clinical Summary ---
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 Difficile colitis 241877228 (SNOMED CT) Active Daxa L Clostridium difficile colitis Medications Medication Instructions Start Date Stop Date Generic Name NDC Provider [facility] OMEPRAZOLE 20 MG TBEC QD OMEPRAZOLE 22472690480 Sharmila Marin ATENOLOL 50 MG TABS QD ATENOLOL [id number] Sharmila Marin VANCOCIN HCL 125 MG ORAL CAPSULE QID VANCOMYCIN HCL [id number] Sharmila Marin Medications Administered No information available. Allergies, Adverse Reactions, Alerts Allergy Name Reaction Description Start Date Severity Statu s Provider FLAGYL Critical Active Sharmila M addox SENSI-CARE SEPTI-SOFT Critical Active Sharmila Marin AMOXICILLIN Critical Active Sharmila Mairn Results
--- NOTE | 2023-02-24 08:25 | EXP.CARD.CON ---
History of Present Illness History of Present Illness Consult date: 02/24/23 Requesting physician: Joshua Espinoza Consult reason: atrial fibrillation Chief complaint: rapid HR Additional Medical History:: 1. PAF A. Intermittent since 2018 B. Intolerant to Diltiazem (bradycardia) and now amiodarone (GI upset/diarrhea/nausea) C. CHADS-VASc score of at least 4 (HTN, age and sex) D. Xarelto therapy 2. Hyperlipidemia A. Statin therapy B. LDL 42 on 01/23/2023 3. Hypertension A. Echocardiogram, 01/23/2023, normal biventricular systolic function. No significant valve disease. Small circumferential pericardial effusion with largest pocket measuring 0.7 cm in diastole. No indication of tamponade. 4. GERD A. PPI therapy 5. Persistent pericardial effusion since 2020, gradually decreasing in size by echocardiogram A. Echocardiogram, 01/23/2023, 0.7 cm in diastole. No indication of tamponade 6. History of COVID infection, 01/2023 A. CTA of the chest, 01/22/2023, no evidence of pulmonary embolism. Pericardial effusion of 14 mm of thickness noted. 7. CAD A. [facility], 04/2019, medical management (normal left main, circumflex and RCA. LAD with proximal 20 to 30% stenosis along with tortuous bend) History of present illness: This is a 82-year-old female with past medical history of CAD hypertension hyperlipidemia, A-fib on chronic Xarelto, metoprolol, recent admission for A-fib RVR, discharged on amiodarone presents with recurrent A-fib. According to the patient she has been feeling sick since then. She complains having diarrhea and loose bowel movements. Also, was COVID positive. patient was recently seen at the cardiology office for follow up. Was in sinus rhythm Stated her appetite is improving slowly. Her infection is cleared. She reported sudden onset of palpitations and discomfort this morning at 2:30 AM, as well as recent episode on . She was recently taken down from 200 twice daily to once a day of her amiodarone, and metoprolol succinate 50 mg daily as prescribed. She has had poor p.o. intake, GI distress and persistent diarrhea which she blame on amiodarone. She was previously on diltiazem but this was discontinued secondary to side effects. admitted for further management. The above per Henri Peña APRN for the Hospitalist service. Patient confirms events as noted above. She relates that since she has been on amiodarone she has had persistent nausea and intermittent diarrhea. She feels that the amiodarone is the source of it. Recent TSH is normal and CTA of the chest last month showed no evidence of pulmonary fibrosis. LFTs this admission are normal. She was found to have COVID infection during her hospitalization of 01/26. This a.m. patient is now back in sinus rhythm at [address]-T abnormalities. QTc intervals 469 ms. [facility] Disclaimer: The information contained in this section may have been updated after the patient was seen, as this information can be updated by other users. Medical History (Updated 02/24/23 @ 07:18 by Henri Peña APRN) A-fib Arrhythmia Arthritis Atherosclerotic cardiovascular disease CAD (coronary artery disease) COVID-19 Diarrhea GERD (gastroesophageal reflux disease) HLD (hyperlipidemia) HTN (hypertension) Kidney stones Osteoporosis Shortness of Breath Skin cancer Surgical History History of cardiac catheterization History of colonoscopy History of tonsillectomy Hx of local excision of skin lesion Family History Other No significant family history Social History Smoking Status: Never smoker alcohol intake: current substance use type: denies use current occupational status: retired Travel in the last 8 weeks: None household members: spouse housing: house current occupation:
[2023-02-24 08:46] LABS: Troponin I 0.03 ng/ml (0.00-0.034)
[2023-02-24 09:10] LABS: VBG Base Excess -2.1 mmol/L (-2.4-2.3); VBG HCO3 22.2 mmol/L (23-30); VBG Oxygen Saturation 92.6 % (50-70); VBG PCO2 34.6 mmol/L (35-51); VBG PH 7.43 mmol/L (7.31-7.41); VBG PO2 61.4 mmol/L (28-40); VBG Total CO2 23.3 mmol/L (23-27)
--- NOTE | 2023-02-24 10:31 | EXP.DC.SUM ---
General Admission date:: 02/24/23 Discharge date: 02/24/23 HPI HPI HPI: This is a 82-year-old female with past medical history of CAD hypertension hyperlipidemia, A-fib on chronic Xarelto, metoprolol, recent admission for A-fib RVR, discharged on amiodarone presents with recurrent A-fib. According to the patient she has been feeling sick since then. She complains having diarrhea and loose bowel movements. Also, was COVID positive. patient was recently seen at the cardiology office for follow up. Was in sinus rhythm Stated her appetite is improving slowly. Her infection is cleared. She reported sudden onset of palpitations and discomfort this morning at 2:30 AM, as well as recent episode on . She was recently taken down from 200 twice daily to once a day of her amiodarone, and metoprolol succinate 50 mg daily as prescribed. She has had poor p.o. intake, GI distress and persistent diarrhea which she blame on amiodarone. She was previously on diltiazem but this was discontinued secondary to side effects. admitted for further management. Hospital Course Hospital Course Hospital Course: 82-year-old female with past medical history of CAD hypertension hyperlipidemia, A-fib on chronic Xarelto, metoprolol, recent admission for A-fib RVR, discharged on amiodarone presents with recurrent A-fib. upon arrival she was confirmed on afib and RVR IV 50 mg metoprolol given, labs works showed abnormal electrolytes including hypokalemia and low mag, those were replaced at ER. Overall doing better through the day. Has converted to sinus rhythm with adjustments in medications and replacement of electrolytes. Cardiology consulted, medication changes made. Stable to discharge home with close follow-up in the outpatient setting. Problems addressed as follows: - Afib w/ rvr recurrent: Patient admitted for monitoring on telemetry. Cardiology was consulted. After much discussion, did made to stop amiodarone. He had discussed risks and if it is of transitioning to alternative antiarrhythmic such as sotalol, given need for monitoring in house for 3 days. Metoprolol was increased to 100 mg daily. Will monitor for improvement/resolution of GI symptoms with stopping amiodarone. Follow-up with cardiology next week for further discussion about medication adjustment. Cardiology discussed other treatment plans for A-fib including: Either staying in the hospital for institution of sotalol or stopping amiodarone and increasing metoprolol discussed with the patient. She wishes to stop amiodarone and go home to see if symptoms improve and return to the office next week for further planning/treatment of A-fib. If she converts back to atrial fibrillation then we would plan for HUMBERTO/cardioversion along with hospitalization for institution of sotalol. Continue Xarelto 20 mg daily, Lipitor 40 mg daily. Hypokalemia: likely secondary to poor intake plus chronic diarrhea. 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 Replaced during admission. Improved. Would benefit from repeat labs in 1 week with CBC, CMP, magnesium. Others Chronic Conditions CAD. HLD. HTN condition reviewed seems stable. reconciled and resumed home meds continue omeprazole Exam Data for Last 24 hours Vital signs and Labs for Last 24 Hours: Temp Pulse Resp BP Pulse Ox O2 Del Method 97.4 F L 63 18 142/64 H 98 Room Air 02/24/23 08:00 02/24/23 08:00 02/24/23 08:00 02/24/23 08:00 02/24/23 08:00 02/24/23 09:00 Laboratory Results - last 24 hr 02/24/23 04:55: WBC 7.4, RBC 4.82, Hgb 15.0, Hct 45.9, MCV 95.1, MCH 31.1, MCHC 32.7, RDW 14.4, Plt Count 329, MPV 10.1, Neut % (Auto) 57.6, Lymph % (Auto) 22.3, [place] % (Auto) 4.7, Eos % (Auto) 15.1 H, Baso % (Auto) 0.3, Neut # (Auto) 4.3, Lymph # (Auto) 1.7, [place] # (Auto) 0.4, Eos # (Auto) 1.1 H, Baso # (Auto) 0.0, Sodium 139, Potassium 2.8 L*, Chloride 103, Carbon Dioxide 26, Anion Gap 12.8, BUN 12, Creatinine
--- NOTE | 2023-02-25 12:07 | CARE MANAGER ---
Called and spoke with patient regarding recent discharge. She states that she is doing well. I worked with her and Dr. Love's office to change her f/u appt for this Thursday so that she will be seen within a week of discharge. She stated that she has started medication and discontinued a medication per DC orders. Patient voiced no concerns at time of call.
== END 2023-02-24 15:21 | disposition home or self-care (01) ==
LOC: ER 05:38 → 2ND 05:58
PROVIDERS: Nurse Practitioner Family; Admitting Provider Internal Medicine Adolescent Medicine; Emergency Provider Emergency Medicine; PCP Internal Medicine Adolescent Medicine; Visit Provider Internal Medicine Adolescent Medicine
DX: I48.0 Paroxysmal atrial fibrillation (principal); E87.6 Hypokalemia; I25.10 Atherosclerotic heart disease of native coronary artery without angina pectoris; E78.2 Mixed hyperlipidemia; I11.9 Hypertensive heart disease without heart failure; Z79.01 Long term (current) use of anticoagulants; Z79.899 Other long term (current) drug therapy; U07.1 COVID-19
CPT/HCPCS: 36415; 80053; 82803; 83735; 84484; 85025; 93005; 99291; G0378; J3475

== ENCOUNTER → 2023-03-02 08:14 | Outpatient (CLI) | payer MEDICARE, OTHER, SELFPAY ==
--- NOTE | 2023-03-02 08:17 | FL_ITS ---
FINAL REPORT CLINICAL HISTORY: DYSPHAGIA 966.74 dap 1.14 fluoro time FINDINGS: AIR CONTRAST UPPER GI HISTORY: Weight loss. TECHNIQUE: The patient ingested thick and thin barium contrast. Effervescent crystals were also administered. Spot and overhead films were performed. A total of 38 images were saved. FINDINGS: The esophagus demonstrates no morphologic abnormalities. No mucosal defects are seen and motility appears normal. The stomach is of normal size, shape and position. No gastric filling defects are seen. The duodenal bulb and sweep appear unremarkable. No episodes of gastroesophageal reflux observed. 13 mm barium tablet passes easily through the esophagus and into the stomach. FLUROSCOPY TIME: 1 minutes 14 seconds Radiation exposure in Total DAP: 966.74 uGym2 IMPRESSION: Unremarkable upper GI series. Reviewed, Interpreted and Dictated by Homer Magallon MD Transcribed by Hawa Daniel PA-C Authenticated and [facility]
== END ==
PROVIDERS: PCP Internal Medicine Adolescent Medicine; Visit Provider Internal Medicine Adolescent Medicine
DX: R13.10 Dysphagia, unspecified (principal)
CPT/HCPCS: 74246

== ENCOUNTER 2023-03-06 09:00 | Inpatient (IN) | payer MEDICARE, OTHER, SELFPAY ==
--- NOTE | 2023-03-05 12:53 | HMH.PHAINT1 ---
Pharmacy Intervention Comments: MEDICATION RECONCILIATION COMPLETED ON PATIENT USING EXTERNAL FILL HISTORY FROM PHARMACY AND DISCHARGE SUMMARY FROM PREVIOUS VISIT. -QUAN LERNERD
--- NOTE | 2023-03-05 13:52 | XR_ITS ---
FINAL REPORT TECHNIQUE: Chest PA & Lateral CLINICAL HISTORY: SOB COMPARISON: 06/01/2022 FINDINGS: 2 views of the chest were performed. The heart size is normal. The mediastinum is within normal limits. There is no acute cardiopulmonary process. There are no pleural effusions. There is no pneumothorax. The bony thorax appears intact. IMPRESSION: No acute cardiopulmonary process. Reviewed, Interpreted and Dictated by Salbador Luther MD Transcribed by Sherri Daly Authenticated and [facility]
[2023-03-05 14:00] VITALS: BP 139/69; PULSE 100; RESP 19; TEMP 36.4; O2SAT 98; BMI 23.4
[2023-03-05 14:23] LABS: Basophils % 0.3 % (0.1-2.0); Eosinophils # 0.4 K/mm3 (0.0-0.4); Eosinophils % 6.2 % (0.1-12.0); Hematocrit 41.1 % (37.0-47.0); Hemoglobin 13.6 g/dL (12.2-16.2); Lymphocytes # 1.4 K/mm3 (0.7-4.5); Lymphocytes % 23.9 % (10-50); Mean Corpuscular Hemoglobin 31.4 pg (27.0-31.2); Mean Platelet Volume 9.7 fl (7.4-10.4); Monocytes # 0.3 K/mm3 (0.1-1.0); Monocytes % 5.7 % (1.7-9.3); Neutrophils # 3.7 K/mm3 (1.8-7.8); Platelet Count 312 K/mm3 (142-424); Red Blood Count 4.33 M/mm3 (4.20-5.40); White Blood Count 5.8 K/mm3 (4.8-10.8)
[2023-03-05 14:29] LABS: Chloride 103 mmol/L (98-107); Sodium 139 mmol/L (136-145)
[2023-03-05 14:32] LABS: Blood Urea Nitrogen 12 mg/dl (7-17); Calcium 8.9 mg/dl (8.4-10.2); Carbon Dioxide 31 mmol/L (22.0-30.0); Estimated Glomerular Filt Rate 69 ml/min (>60); GFR (African American) 84 ML/MIN (>60); Glucose 107 mg/dl (74-100)
[2023-03-05 14:35] LABS: INR 1.46 (0.9-1.1); Prothrombin Time 15.4 seconds (10.1-12.5)
[2023-03-05 14:37] LABS: Lactic Acid 1.1 mmol/L (0.7-2.1)
[2023-03-05 14:44] LABS: Troponin I 0.03 ng/ml (0.00-0.034)
[2023-03-05 15:57] VITALS: BP 129/81; PULSE 81; RESP 18; TEMP 36.6; O2SAT 97
[2023-03-05 16:00] VITALS: PULSE 79
--- NOTE | 2023-03-05 17:35 | EXP.HP ---
History of Present Illness *Admission Date: 03/05/23 *Reason for visit:: Afib RVR *History of present illness: Patient is a 82-year-old female with past medical history of CAD hypertension hyperlipidemia atrial fibrillation on Xarelto who presented to hospital due to A-fib with RVR on cardiology office. Patient mentions she had follow-up appointment with cardiology however she has been not feeling well at home since her discharge last time from the hospital, she was discharged from the hospital 1 week ago. Patient otherwise denied chest pain nausea vomiting diarrhea constipation however she had an episode of chest pain that radiated to her back. She was not on cardiology office for further evaluation, patient is likely to be started on sotalol plus minus cardioversion. [facility] Disclaimer: The information contained in this section may have been updated after the patient was seen, as this information can be updated by other users. Medical History A-fib Arrhythmia Arthritis Atherosclerotic cardiovascular disease CAD (coronary artery disease) COVID-19 Diarrhea GERD (gastroesophageal reflux disease) HLD (hyperlipidemia) HTN (hypertension) Kidney stones Osteoporosis Shortness of Breath Skin cancer Surgical History History of cardiac catheterization History of colonoscopy History of tonsillectomy Hx of local excision of skin lesion Family History Other No significant family history Social History (Updated 03/05/23 @ 13:17 by Fatoumata Dougherty RN) Smoking Status: Never smoker alcohol intake: current substance use type: denies use current occupational status: retired Travel in the last 8 weeks: None household members: spouse housing: house current occupation: RETIRED [employer] caffeine: No Review of Systems Review of Systems Review of systems (narrative): as per HPI Meds Home Medications and Allergies Home Medications Medication Instructions Recorded Confirmed Type omeprazole 20 mg tablet,delayed 20 mg PO DAILY Acid Reflux 03/17/20 03/05/23 History release cholecalciferol (vitamin D3) 25 25 mcg PO DAILY Supplement 11/14/20 03/05/23 History mcg (1,000 unit) capsule atorvastatin 40 mg tablet 40 mg PO HS Cholesterol 01/22/23 03/05/23 History rivaroxaban 20 mg tablet (Xarelto) 20 mg PO QPMWITHMEAL Blood 01/22/23 03/05/23 History Thinner/Afib denosumab 60 mg/mL subcutaneous 60 mg SQ DIRECTED 03/05/23 03/05/23 History syringe (Prolia) metoprolol succinate 100 mg 100 mg PO DAILY High Blood Pressure 03/05/23 03/05/23 History tablet,extended release 24 hr New Prescriptions to Start Prescriptions: Allergies Allergy/AdvReac Type Severity Reaction Status Date / Time amoxicillin Allergy Severe Unknown Verified 03/05/23 14:03 allergy reaction metronidazole [From Flagyl] Allergy Severe Unknown Verified 03/05/23 14:03 allergy reaction protectives, O.U. Allergy Severe Unknown Verified 03/05/23 14:03 [From Sensi-Care (foam)] allergy reaction Penicillins Allergy Intermediate EDEMA Verified 03/05/23 10:04 apixaban [From Eliquis] Allergy Mild Rash Verified 03/05/23 10:04 Sulfa (Sulfonamide Allergy Unknown Unknown Verified 03/05/23 10:04 Antibiotics) allergy [SULFA (SULFONAMIDE reaction ANTIBIOTICS)] adhesive tape Allergy Unknown Verified 03/05/23 13:59 allergy reaction amiodarone AdvReac Mild GI UPSET Verified 03/05/23 13:59 acetaminophen AdvReac Nausea Verified 03/05/23 10:04 Exam Data for Last 24 hours Vital signs and Labs for Last 24 Hours: Temp Pulse Resp BP Pulse Ox O2 Del Method 97.8 F 79 18 129/81 97 Room Air 03/05/23 15:57 03/05/23 16:00 03/05/23 15:57 03/05/23 15:57 03/05/23 15:57 03/05/23 17:00 Laboratory Results
[2023-03-05 20:00] VITALS: BP 118/56; PULSE 54; PULSE 60; RESP 14; TEMP 36.7; O2SAT 95
[2023-03-05 20:30] LABS: Troponin I 0.03 ng/ml (0.00-0.034)
[2023-03-06] VITALS (7 sets, daily range): BP systolic 114–133; BP diastolic 50–56; PULSE 50–75; RESP 16–19; TEMP 36.5–36.6; O2SAT 91–99; BMI 23.5
[2023-03-06 06:24] LABS: Basophils % 0.4 % (0.1-2.0); Eosinophils # 0.5 K/mm3 (0.0-0.4); Eosinophils % 9.4 % (0.1-12.0); Hematocrit 36.7 % (37.0-47.0); Lymphocytes # 1.4 K/mm3 (0.7-4.5); Lymphocytes % 25.9 % (10-50); Mean Corpuscular HGB Conc 33.2 g/dL (31.8-35.4); Mean Corpuscular Hemoglobin 31.4 pg (27.0-31.2); Mean Corpuscular Volume 94.5 fl (81-99); Mean Platelet Volume 9.4 fl (7.4-10.4); Monocytes # 0.4 K/mm3 (0.1-1.0); Monocytes % 6.9 % (1.7-9.3); Neutrophils % 57.4 % (37.0-80.0); Platelet Count 305 K/mm3 (142-424); Red Blood Count 3.89 M/mm3 (4.20-5.40); Red Cell Distribution Width 14.7 % (11.5-17.5); White Blood Count 5.3 K/mm3 (4.8-10.8)
[2023-03-06 06:27] LABS: Chloride 104 mmol/L (98-107); Potassium 3.6 mmoL/L (3.5-5.1); Sodium 138 mmol/L (136-145)
[2023-03-06 06:30] LABS: Blood Urea Nitrogen 15 mg/dl (7-17); Creatinine Clearance Estimated 45 mL/min (50-200); Estimated Glomerular Filt Rate 60 ml/min (>60); GFR (African American) 73 ML/MIN (>60); Hemoglobin 12.2 g/dL (12.2-16.2)
[2023-03-06 06:31] LABS: Anion Gap 5.6 mEq/L (5-15); Calcium 8.3 mg/dl (8.4-10.2); Carbon Dioxide 32 mmol/L (22.0-30.0); Glucose 99 mg/dl (74-100)
--- NOTE | 2023-03-06 06:56 | ECG_ITS ---
APPROVED REPORT Exam: Resting ECG HR:54 bpm ECG Measurements Heart Rate 54 AXES NE 205 P 75 QRSd 88 QRS 50 QT 463 T 66 QTc 449 Conclusion SINUS BRADYCARDIA NONSPECIFIC ST & T-WAVE ABNORMALITY BORDERLINE ECG UNCONFIRMED REPORT Electronically signed by : Allen Love MD 03/06/2023 16:29:25
[2023-03-06 07:56] LABS: Alanine Aminotransferase 21 U/L (12-78); Albumin Level 3.2 g/dl (3.5-5.0); Alkaline Phosphatase 39 U/L (38-126); Aspartate Amino Transferase 34 U/L (14-36); Bilirubin,Direct 0.2 mg/dl (0.0-0.4); Bilirubin,Indirect 0.6 mg/dL (0.0-0.9); Bilirubin,Total 0.8 mg/dl (0.2-1.3); Bilirubin,Unconjugated 0.6 mg/dL (0.0-1.1); Cholesterol 102 mg/dl (140-200); HDL Cholesterol 34 mg/dl (40-60); Total Protein,Serum 5.3 g/dl (6.3-8.2); Triglycerides 64 mg/dl (30-150); VLDL Cholesterol 13 mg/dL (0-40)
[2023-03-06 08:08] LABS: Direct LDL Cholesterol 57.51 mg/dL (100-129)
--- NOTE | 2023-03-06 09:47 | EXP.CARD.PN ---
Subjective Subjective Date: 03/06/23 Time: 08:15 Principal diagnosis: afib with rvr Interval history: This is an 82-year-old female who was admitted to the hospital for atrial fibrillation with RVR from cardiology office. The patient was admitted to undergo HUMBERTO and cardioversion today and then initiate sotalol while hospitalized. However, the patient did convert on her own through the night. This morning she states that she is feeling much better. She denies any chest pain or pressure. She denies any shortness of breath or edema. She denies any racing of the heart or palpitations. She denies any fever, chills, nausea, vomiting, diarrhea, PND orthopnea. She does complain of some fatigue and lack of energy. Exam Data for Last 24 hours Vital signs and Labs for Last 24 Hours: Temp Pulse Resp BP Pulse Ox O2 Del Method 97.7 F 54 L 17 121/54 L 96 Room Air 03/06/23 08:00 03/06/23 08:00 03/06/23 08:00 03/06/23 08:00 03/06/23 08:00 03/06/23 09:00 Laboratory Results - last 24 hr 03/05/23 14:09: WBC 5.8, RBC 4.33, Hgb 13.6, Hct 41.1, MCV 95.0, MCH 31.4 H, MCHC 33.0, RDW 15.0, Plt Count 312, MPV 9.7, Neut % (Auto) 64.0, Lymph % (Auto) 23.9, [place] % (Auto) 5.7, Eos % (Auto) 6.2, Baso % (Auto) 0.3, Neut # (Auto) 3.7, Lymph # (Auto) 1.4, [place] # (Auto) 0.3, Eos # (Auto) 0.4, Baso # (Auto) 0.0, PT 15.4 H, INR 1.46 H, Sodium 139, Potassium 4.0, Chloride 103, Carbon Dioxide 31 H, Anion Gap 9.0, BUN 12, Creatinine 0.80, Estimated GFR 69, Est GFR ( Amer) 84, Glucose 107 H, Lactate 1.1, Calcium 8.9, Troponin I 0.03 03/05/23 19:50: Troponin I 0.03 03/06/23 06:12: WBC 5.3, RBC 3.89 L, Hgb 12.2 D, Hct 36.7 L, MCV 94.5, MCH 31.4 H, MCHC 33.2, RDW 14.7, Plt Count 305, MPV 9.4, Neut % (Auto) 57.4, Lymph % (Auto) 25.9, [place] % (Auto) 6.9, Eos % (Auto) 9.4, Baso % (Auto) 0.4, Neut # (Auto) 3.0, Lymph # (Auto) 1.4, [place] # (Auto) 0.4, Eos # (Auto) 0.5 H, Baso # (Auto) 0.0, Sodium 138, Potassium 3.6, Chloride 104, Carbon Dioxide 32 H, Anion Gap 5.6, BUN 15, Creatinine 0.90, Estimated Creat Clear 45, Estimated GFR 60, Est GFR ( Amer) 73, Glucose 99, Calcium 8.3 L, Total Bilirubin 0.8, Direct Bilirubin 0.2, Conjugated Bilirubin 0.0, Indirect Bilirubin 0.6, Unconjugated Bilirubin 0.6, AST 34, ALT 21, Alkaline Phosphatase 39, Total Protein 5.3 L, Albumin 3.2 L, Triglycerides 64, Cholesterol 102 L, LDL Cholesterol Direct 57.51 L, VLDL Cholesterol 13, HDL Cholesterol 34 L, Cholesterol/HDL Ratio 3.0 I & O for Last 24 hours: Intake & Output 03/03/23 03/04/23 03/05/23 03/06/23 23:59 23:59 23:59 23:59 Intake Total 360 / 360 Output Total 0 / 0 0 / 0 Balance 360 / 360 0 / 0 Weight 141 lb 141 lb 0.017 oz Narrative: Telemetry strip is sinus rhythm with a rate of 54 bpm. Constitutional Constitutional: no acute distress and average body habitus *Routine HEENT Exam Head: Present normocephalic and atraumatic ENT: Present mucous membranes moist *Routine Neck Exam Neck: Present supple, full ROM and normal carotid upstroke; Absent JVD, carotid bruit or lymphadenopathy *Routine Respiratory Exam Respiratory: Present CTA bilaterally, normal respiratory effort, able to speak in complete sentences and symmetric chest movement *Routine Cardiovascular Exam Cardiovascular: Present RRR, Normal S1, Normal S2 and bradycardia; Absent murmur or gallop *Routine Abdominal Exam Abdominal: Present soft and normoactive bowel sounds; Absent tenderness, distended or organomegaly *Routine Extremities Exam Extremities: Present full ROM, pulses intact and normal capillary refill; Absent cyanosis, clubbing or edema *Routine Skin Exam Skin: Present intact and warm; Absent erythema *Routine Neurological Exam Neurological: Present alert, oriented X3 and CN II-XII intact; Absent sensory deficit or motor deficit Routine Psychiatric Exam Psychiatric: Present normal affect Progress Note: A&P Assessment and plan (1) Atrial fibrillation with RVR: Status: Resolved (2) C
--- OUTSIDE RECORDS SUMMARY | 2023-03-06 11:48 | XMS_ITS | Clinical Summary ---
Author Name Unknown Address [address] [place] [address] Phone Organization [facility] Address [address] [place] [address] Phone Care Team Providers Care Teacher'S Assistant Name Role Phone Tim Bansal MD [ ] Conditions or Problems Problem Name Problem Code Onset Date Status Entry Date Provider Comment Standard Description Annotate Benign Essential Hypertension 09474303 (SNOMED CT) Active Daxa L Benign hypertension C. Difficile colitis 860128518 (SNOMED CT) Active Daxa L Clostridium difficile colitis Medications Medication Instructions Start Date Stop Date Generic Name NDC Provider CVS OMEPRAZOLE 20 MG TBEC QD OMEPRAZOLE [id number] Sharmila Marin ATENOLOL 50 MG TABS QD ATENOLOL [id number] Sharmila Marin VANCOCIN HCL 125 MG ORAL CAPSULE QID VANCOMYCIN HCL [id number] Sharmila Marin Medications Administered No information available. Allergies, Adverse Reactions, Alerts Allergy Name Reaction Description Start Date Severity Statu s Provider FLAGYL Critical Active Sharmila M addox SENSI-CARE SEPTI-SOFT Critical Active Sharmila Marin AMOXICILLIN Critical Active Sharmila Marin Results
--- OUTSIDE RECORDS SUMMARY | 2023-03-06 11:49 | XMS_ITS | Clinical Summary ---
Author Name Unknown Address [address] [place] [address] Phone Organization [facility] Address [address] [place] [address] Phone Care Team Providers Care Movers Name Role Phone Tim Bansal MD [ ] Conditions or Problems Problem Name Problem Code Onset Date Status Entry Date Provider Comment Standard Description Annotate Benign Essential Hypertension 24216992 (SNOMED CT) Active Daxa L Benign hypertension C. Difficile colitis 119689286 (SNOMED CT) Active Daxa L Clostridium difficile colitis Medications Medication Instructions Start Date Stop Date Generic Name NDC Provider CVS OMEPRAZOLE 20 MG TBEC QD OMEPRAZOLE [id number] Sharmila Marin ATENOLOL 50 MG TABS QD ATENOLOL [id number] Sharmila Marin VANCOCIN HCL 125 MG ORAL CAPSULE QID VANCOMYCIN HCL [id number] Sharmila Marin Medications Administered No information available. Allergies, Adverse Reactions, Alerts Allergy Name Reaction Description Start Date Severity Statu s Provider FLAGYL Critical Active Sharmila M addox SENSI-CARE SEPTI-SOFT Critical Active Sharmila Marin AMOXICILLIN Critical Active Sharmila Marin Results
--- NOTE | 2023-03-06 16:27 | EXP.PN ---
Subjective *Date: 03/06/23 *Time: 16:27 Interval history: patient was seen and evaluated at the bedside. denies chest pain, shortness of breath, nausea, vomiting, abdominal pain. Patient does not have any complaints at this time. feels better overall Exam Data for Last 24 hours Vital signs and Labs for Last 24 Hours: Temp Pulse Resp BP Pulse Ox O2 Del Method 97.9 F 72 19 115/55 L 91 L Room Air 03/06/23 15:41 03/06/23 15:41 03/06/23 15:41 03/06/23 15:41 03/06/23 15:41 03/06/23 15:41 Laboratory Results - last 24 hr 03/05/23 19:50: Troponin I 0.03 03/06/23 06:12: WBC 5.3, RBC 3.89 L, Hgb 12.2 D, Hct 36.7 L, MCV 94.5, MCH 31.4 H, MCHC 33.2, RDW 14.7, Plt Count 305, MPV 9.4, Neut % (Auto) 57.4, Lymph % (Auto) 25.9, [place] % (Auto) 6.9, Eos % (Auto) 9.4, Baso % (Auto) 0.4, Neut # (Auto) 3.0, Lymph # (Auto) 1.4, [place] # (Auto) 0.4, Eos # (Auto) 0.5 H, Baso # (Auto) 0.0, Sodium 138, Potassium 3.6, Chloride 104, Carbon Dioxide 32 H, Anion Gap 5.6, BUN 15, Creatinine 0.90, Estimated Creat Clear 45, Estimated GFR 60, Est GFR ( Amer) 73, Glucose 99, Calcium 8.3 L, Total Bilirubin 0.8, Direct Bilirubin 0.2, Conjugated Bilirubin 0.0, Indirect Bilirubin 0.6, Unconjugated Bilirubin 0.6, AST 34, ALT 21, Alkaline Phosphatase 39, Total Protein 5.3 L, Albumin 3.2 L, Triglycerides 64, Cholesterol 102 L, LDL Cholesterol Direct 57.51 L, VLDL Cholesterol 13, HDL Cholesterol 34 L, Cholesterol/HDL Ratio 3.0 I & O for Last 24 hours: Intake & Output 03/03/23 03/04/23 03/05/23 03/06/23 23:59 23:59 23:59 23:59 Intake Total 360 / 360 360 / 360 Output Total 0 / 0 300 / 300 Balance 360 / 360 60 / 60 Weight 63.957 kg 63.95 kg Constitutional Constitutional: no acute distress *Routine HEENT Exam Head: Present normocephalic Eye: Present EOMI and PERRL ENT: Present mucous membranes moist *Routine Neck Exam Neck: Present supple; Absent lymphadenopathy *Routine Respiratory Exam Respiratory: Present CTA bilaterally *Routine Cardiovascular Exam Cardiovascular: Present RRR *Routine Abdominal Exam Abdominal: Present soft and normoactive bowel sounds; Absent tenderness *Routine Extremities Exam Extremities: Absent cyanosis, clubbing or edema *Routine Skin Exam Skin: Present warm; Absent rash *Routine Neurological Exam Neurological: Present alert and oriented X3 Assessment and Plan *Assessment and plan (1) Atrial fibrillation with RVR: Status: Resolved Category: Medical Code(s): I48.91 - Unspecified atrial fibrillation (2) CAD (coronary artery disease): Status: Chronic Qualifiers: Coronary Disease-Associated Artery/Lesion type: [place] artery [place] vs. transplanted heart: [place] heart Associated angina: without angina Qualified Code(s): I25.10 - Atherosclerotic heart disease of [place] coronary artery without angina pectoris Category: Medical Code(s): I25.10 - Atherosclerotic heart disease of [place] coronary artery without angina pectoris (3) HLD (hyperlipidemia): Status: Chronic Qualifiers: Hyperlipidemia type: mixed hyperlipidemia Qualified Code(s): E78.2 - Mixed hyperlipidemia Category: Medical Code(s): E78.5 - Hyperlipidemia, unspecified (4) Hypertension: Status: Acute Qualifiers: Hypertension type: primary hypertension Qualified Code(s): I10 - Essential (primary) hypertension Category: Medical Code(s): I10 - Essential (primary) hypertension Plan Patient is a 82-year-old female with past medical history of CAD hypertension hyperlipidemia atrial fibrillation on Xarelto who presented to hospital due to A-fib with RVR on cardiology office. Patient mentions she had follow-up appointment with cardiology however she has been not feeling well at home since her discharge last time from the hospital, she was discharged from the hospital 1 week ago. Patient otherwise denied chest pain nausea vomiting diarrhe
[2023-03-07] VITALS: BP 111/45; PULSE 50; PULSE 51; RESP 18; TEMP 36.7; O2SAT 97
[2023-03-07 04:00] VITALS: BP 125/51; PULSE 50; PULSE 52; RESP 18; TEMP 36.6; O2SAT 97; BMI 23.3
[2023-03-07 07:21] LABS: Chloride 104 mmol/L (98-107); Potassium 4.4 mmoL/L (3.5-5.1); Sodium 139 mmol/L (136-145)
[2023-03-07 07:24] LABS: Anion Gap 8.4 mEq/L (5-15); Blood Urea Nitrogen 14 mg/dl (7-17); Carbon Dioxide 31 mmol/L (22.0-30.0); Creatinine Clearance Estimated 45 mL/min (50-200); Estimated Glomerular Filt Rate 69 ml/min (>60); GFR (African American) 84 ML/MIN (>60)
[2023-03-07 07:25] LABS: Calcium 8.5 mg/dl (8.4-10.2); Glucose 101 mg/dl (74-100)
[2023-03-07 07:35] LABS: Basophils % 0.4 % (0.1-2.0); Eosinophils # 0.5 K/mm3 (0.0-0.4); Eosinophils % 10.7 % (0.1-12.0); Hematocrit 38.4 % (37.0-47.0); Hemoglobin 12.5 g/dL (12.2-16.2); Lymphocytes # 1.3 K/mm3 (0.7-4.5); Lymphocytes % 26.1 % (10-50); Mean Corpuscular HGB Conc 32.5 g/dL (31.8-35.4); Mean Corpuscular Hemoglobin 30.8 pg (27.0-31.2); Mean Corpuscular Volume 94.8 fl (81-99); Mean Platelet Volume 9.7 fl (7.4-10.4); Monocytes # 0.3 K/mm3 (0.1-1.0); Monocytes % 6.4 % (1.7-9.3); Neutrophils # 2.8 K/mm3 (1.8-7.8); Neutrophils % 56.5 % (37.0-80.0); Platelet Count 309 K/mm3 (142-424); Red Blood Count 4.05 M/mm3 (4.20-5.40); Red Cell Distribution Width 14.8 % (11.5-17.5)
[2023-03-07 08:00] VITALS: BP 130/58; PULSE 55; PULSE 58; RESP 20; TEMP 36.7; O2SAT 96
--- NOTE | 2023-03-07 08:53 | ECG_ITS ---
APPROVED REPORT Exam: Resting ECG HR:53 bpm ECG Measurements Heart Rate 53 AXES GA 206 P 43 QRSd 93 QRS 38 QT 472 T -5 QTc 454 [address] DEVIATION AND MODERATE T-WAVE ABNORMALITY, CONSIDER ANTEROLATERAL ISCHEMIA [-0.1+ mV T-WAVE IN V3-V6] ABNORMAL ECG UNCONFIRMED REPORT Electronically signed by : Allen Love MD 03/09/2023 17:42:41
[2023-03-07 12:00] VITALS: BP 108/58; PULSE 51; PULSE 52; RESP 20; TEMP 36.8; O2SAT 99
--- NOTE | 2023-03-07 15:54 | EXP.PN ---
Subjective *Date: 03/07/23 *Time: 15:54 Interval history: patient was seen and evaluated at the bedside. denies chest pain, shortness of breath, nausea, vomiting, abdominal pain. Patient does not have any complaints at this time. feels better overall Exam Data for Last 24 hours Vital signs and Labs for Last 24 Hours: Temp Pulse Resp BP Pulse Ox O2 Del Method 98.2 F 52 L 20 108/58 L 99 Room Air 03/07/23 12:00 03/07/23 12:00 03/07/23 12:00 03/07/23 12:00 03/07/23 12:00 03/07/23 15:00 Laboratory Results - last 24 hr 03/07/23 06:38: WBC 5.0, RBC 4.05 L, Hgb 12.5, Hct 38.4, MCV 94.8, MCH 30.8, MCHC 32.5, RDW 14.8, Plt Count 309, MPV 9.7, Neut % (Auto) 56.5, Lymph % (Auto) 26.1, [place] % (Auto) 6.4, Eos % (Auto) 10.7, Baso % (Auto) 0.4, Neut # (Auto) 2.8, Lymph # (Auto) 1.3, [place] # (Auto) 0.3, Eos # (Auto) 0.5 H, Baso # (Auto) 0.0, Sodium 139, Potassium 4.4 D, Chloride 104, Carbon Dioxide 31 H, Anion Gap 8.4, BUN 14, Creatinine 0.80, Estimated Creat Clear 45, Estimated GFR 69, Est GFR ( Amer) 84, Glucose 101 H, Calcium 8.5 I & O for Last 24 hours: Intake & Output 03/04/23 03/05/23 03/06/23 03/07/23 23:59 23:59 23:59 23:59 Intake Total 360 / 360 630 / 630 960 / 960 Output Total 0 / 0 300 / 300 0 / 0 Balance 360 / 360 330 / 330 960 / 960 Weight 63.957 kg 63.95 kg 63.5 kg Constitutional Constitutional: no acute distress *Routine HEENT Exam Head: Present normocephalic Eye: Present EOMI and PERRL ENT: Present mucous membranes moist *Routine Neck Exam Neck: Present supple; Absent lymphadenopathy *Routine Respiratory Exam Respiratory: Present CTA bilaterally *Routine Cardiovascular Exam Cardiovascular: Present RRR *Routine Abdominal Exam Abdominal: Present soft and normoactive bowel sounds; Absent tenderness *Routine Extremities Exam Extremities: Absent cyanosis, clubbing or edema *Routine Skin Exam Skin: Present warm; Absent rash *Routine Neurological Exam Neurological: Present alert and oriented X3 Assessment and Plan *Assessment and plan (1) Atrial fibrillation with RVR: Status: Resolved Category: Medical Code(s): I48.91 - Unspecified atrial fibrillation (2) CAD (coronary artery disease): Status: Chronic Qualifiers: Coronary Disease-Associated Artery/Lesion type: [place] artery [place] vs. transplanted heart: [place] heart Associated angina: without angina Qualified Code(s): I25.10 - Atherosclerotic heart disease of [place] coronary artery without angina pectoris Category: Medical Code(s): I25.10 - Atherosclerotic heart disease of [place] coronary artery without angina pectoris (3) HLD (hyperlipidemia): Status: Chronic Qualifiers: Hyperlipidemia type: mixed hyperlipidemia Qualified Code(s): E78.2 - Mixed hyperlipidemia Category: Medical Code(s): E78.5 - Hyperlipidemia, unspecified (4) Hypertension: Status: Acute Qualifiers: Hypertension type: primary hypertension Qualified Code(s): I10 - Essential (primary) hypertension Category: Medical Code(s): I10 - Essential (primary) hypertension Plan Patient is a 82-year-old female with past medical history of CAD hypertension hyperlipidemia atrial fibrillation on Xarelto who presented to hospital due to A-fib with RVR on cardiology office. Patient mentions she had follow-up appointment with cardiology however she has been not feeling well at home since her discharge last time from the hospital, she was discharged from the hospital 1 week ago. Patient otherwise denied chest pain nausea vomiting diarrhea constipation however she had an episode of chest pain that radiated to her back. She was not on cardiology office for further evaluation, patient is likely to be started on sotalol plus minus cardioversion. Assessment A-fib with RVR Hypertension Hyperlipidemia CAD GERD Plan cardiology started patient on sotalol, will monitor
[2023-03-07 16:00] VITALS: BP 127/44; PULSE 52; PULSE 54; RESP 18; TEMP 36.7; O2SAT 97
--- NOTE | 2023-03-07 16:47 | PC.NURSE ---
PATIENT HAS DONE WELL OVERALL THIS SHIFT. DID HAVE AN EPISODE OF APPARENT AFLUTTER THIS MORNING ON TELE. DR HURLYE NOTIFIED BUT PATIENT CONVERTED WITHOUT INTERVENTION. DR HURLEY V/O TO CONTINUE CURRENT TREATMENTS. SHE HAS NOT REQUIRED O2 SUPPORT. MINIMAL ASSISTANCE WITH ADL'S, AMBULATES INDEPENDENTLY UNDER SUPERVISION OF STAFF.
[2023-03-07 20:00] VITALS: BP 128/52; PULSE 54; PULSE 60; RESP 16; TEMP 36.6; O2SAT 94
[2023-03-08] VITALS (7 sets, daily range): BP systolic 98–129; BP diastolic 47–60; PULSE 50–55; RESP 17–18; TEMP 36.3–36.7; O2SAT 95–98; BMI 23.3
--- NOTE | 2023-03-08 05:11 | PC.NURSE ---
Patient has rested well this shift with no c/o pain or discomfort. compliance examiner shows sinus carlos with 1st degree AV block, no fluttering noted this shift. Patient has taken self to bathroom twice this shift with no complications. No acute changes noted.
[2023-03-08 07:15] LABS: Chloride 105 mmol/L (98-107); Sodium 138 mmol/L (136-145)
[2023-03-08 07:18] LABS: Blood Urea Nitrogen 14 mg/dl (7-17); Calcium 8.5 mg/dl (8.4-10.2); Carbon Dioxide 30 mmol/L (22.0-30.0); Creatinine Clearance Estimated 45 mL/min (50-200); Estimated Glomerular Filt Rate 69 ml/min (>60); GFR (African American) 84 ML/MIN (>60); Glucose 104 mg/dl (74-100)
[2023-03-08 07:38] LABS: Basophils % 0.1 % (0.1-2.0); Eosinophils # 0.4 K/mm3 (0.0-0.4); Eosinophils % 8.9 % (0.1-12.0); Hematocrit 37.8 % (37.0-47.0); Hemoglobin 12.4 g/dL (12.2-16.2); Lymphocytes # 1.4 K/mm3 (0.7-4.5); Lymphocytes % 27.2 % (10-50); Mean Corpuscular HGB Conc 32.7 g/dL (31.8-35.4); Mean Corpuscular Hemoglobin 30.9 pg (27.0-31.2); Mean Corpuscular Volume 94.5 fl (81-99); Mean Platelet Volume 10.3 fl (7.4-10.4); Monocytes # 0.3 K/mm3 (0.1-1.0); Monocytes % 6.2 % (1.7-9.3); Neutrophils # 2.9 K/mm3 (1.8-7.8); Neutrophils % 57.6 % (37.0-80.0); Platelet Count 287 K/mm3 (142-424); Red Cell Distribution Width 14.9 % (11.5-17.5)
--- NOTE | 2023-03-08 15:17 | EXP.PN ---
Subjective *Date: 03/08/23 *Time: 15:17 Interval history: patient was seen and evaluated at the bedside. denies chest pain, shortness of breath, nausea, vomiting, abdominal pain. Patient does not have any complaints at this time. feels better overall Exam Data for Last 24 hours Vital signs and Labs for Last 24 Hours: Temp Pulse Resp BP Pulse Ox O2 Del Method 97.5 F L 50 L 17 98/49 L 96 Room Air 03/08/23 12:00 03/08/23 12:00 03/08/23 12:00 03/08/23 12:37 03/08/23 12:00 03/08/23 12:36 Laboratory Results - last 24 hr 03/08/23 06:56: WBC 5.0, RBC 4.00 L, Hgb 12.4, Hct 37.8, MCV 94.5, MCH 30.9, MCHC 32.7, RDW 14.9, Plt Count 287, MPV 10.3, Neut % (Auto) 57.6, Lymph % (Auto) 27.2, [place] % (Auto) 6.2, Eos % (Auto) 8.9, Baso % (Auto) 0.1, Neut # (Auto) 2.9, Lymph # (Auto) 1.4, [place] # (Auto) 0.3, Eos # (Auto) 0.4, Baso # (Auto) 0.0, Sodium 138, Potassium 4.0, Chloride 105, Carbon Dioxide 30, Anion Gap 7.0, BUN 14, Creatinine 0.80, Estimated Creat Clear 45, Estimated GFR 69, Est GFR ( Amer) 84, Glucose 104 H, Calcium 8.5 I & O for Last 24 hours: Intake & Output 03/05/23 03/06/23 03/07/23 03/08/23 23:59 23:59 23:59 23:59 Intake Total 360 / 360 630 / 630 1440 / 1680 910 / 910 Output Total 0 / 0 300 / 300 0 / 0 0 / 0 Balance 360 / 360 330 / 330 1440 / 1680 910 / 910 Weight 63.957 kg 63.95 kg 63.5 kg 63.5 kg Constitutional Constitutional: no acute distress *Routine HEENT Exam Head: Present normocephalic Eye: Present EOMI and PERRL ENT: Present mucous membranes moist *Routine Neck Exam Neck: Present supple; Absent lymphadenopathy *Routine Respiratory Exam Respiratory: Present CTA bilaterally *Routine Cardiovascular Exam Cardiovascular: Present RRR *Routine Abdominal Exam Abdominal: Present soft and normoactive bowel sounds; Absent tenderness *Routine Extremities Exam Extremities: Absent cyanosis, clubbing or edema *Routine Skin Exam Skin: Present warm; Absent rash *Routine Neurological Exam Neurological: Present alert and oriented X3 Assessment and Plan *Assessment and plan (1) Atrial fibrillation with RVR: Status: Resolved Category: Medical Code(s): I48.91 - Unspecified atrial fibrillation (2) CAD (coronary artery disease): Status: Chronic Qualifiers: Coronary Disease-Associated Artery/Lesion type: [place] artery [place] vs. transplanted heart: [place] heart Associated angina: without angina Qualified Code(s): I25.10 - Atherosclerotic heart disease of [place] coronary artery without angina pectoris Category: Medical Code(s): I25.10 - Atherosclerotic heart disease of [place] coronary artery without angina pectoris (3) HLD (hyperlipidemia): Status: Chronic Qualifiers: Hyperlipidemia type: mixed hyperlipidemia Qualified Code(s): E78.2 - Mixed hyperlipidemia Category: Medical Code(s): E78.5 - Hyperlipidemia, unspecified (4) Hypertension: Status: Acute Qualifiers: Hypertension type: primary hypertension Qualified Code(s): I10 - Essential (primary) hypertension Category: Medical Code(s): I10 - Essential (primary) hypertension Plan Patient is a 82-year-old female with past medical history of CAD hypertension hyperlipidemia atrial fibrillation on Xarelto who presented to hospital due to A-fib with RVR on cardiology office. Patient mentions she had follow-up appointment with cardiology however she has been not feeling well at home since her discharge last time from the hospital, she was discharged from the hospital 1 week ago. Patient otherwise denied chest pain nausea vomiting diarrhea constipation however she had an episode of chest pain that radiated to her back. She was not on cardiology office for further evaluation, patient is likely to be started on sotalol plus minus cardioversion. Assessment A-fib with RVR Hypertension Hyperlipidemia CAD GERD Plan cardiology started matteo
[2023-03-09] VITALS: BP 114/51; PULSE 48; PULSE 52; RESP 18; TEMP 37.6; O2SAT 97
[2023-03-09 04:00] VITALS: BP 122/57; PULSE 50; PULSE 51; RESP 18; TEMP 36.5; O2SAT 97; BMI 23.3
--- NOTE | 2023-03-09 05:25 | PC.NURSE ---
Patient has had a wonderful night. Has sleep most of the night. Has been NS to Sinus carlos on the monitor. Patient has not companied of pain, SOB, or anything. Remains on RA. No other issues
--- NOTE | 2023-03-09 06:00 | ECG_ITS ---
APPROVED REPORT Exam: Resting ECG HR:53 bpm ECG Measurements Heart Rate 53 AXES NH 209 P 80 QRSd 94 QRS 53 QT 468 T 58 QTc 451 [address] DEVIATION AND MODERATE T-WAVE ABNORMALITY, CONSIDER ANTERIOR ISCHEMIA [-0.1+ mV T-WAVE IN V3/V4] ABNORMAL ECG UNCONFIRMED REPORT Electronically signed by : Allen Love MD 03/09/2023 17:36:20
--- NOTE | 2023-03-09 06:00 | CA_ITS ---
APPROVED REPORT EXAM: Limited 2D Echocardiogram [employer] Consultant: Lolyl Ambrosio CRT Ht: 5 ft 4 in Wt: 139lbs BSA: 1.68 BP: 98/49 mmHg Indications: afib, check pericardial effusion Other Information Study Quality: Fair Conclusion This is a limited TTE to evaluate for pericardial effusion. Limited windows were obtained. The left ventricle appears grossly normal in size and function. There is a small sized, circumferential pericardial effusion present. The largest pocket measures approximately 0.6 cm in diastole. Compared to prior study from 01/2023, there are overall no significant changes to the pericardial effusion. Electronically signed by : Carol Laguerre MD 03/11/2023 12:38:34
[2023-03-09 06:59] LABS: Basophils % 0.2 % (0.1-2.0); Chloride 105 mmol/L (98-107); Eosinophils # 0.6 K/mm3 (0.0-0.4); Hematocrit 40.2 % (37.0-47.0); Lymphocytes # 1.6 K/mm3 (0.7-4.5); Lymphocytes % 26.1 % (10-50); Mean Corpuscular HGB Conc 32.4 g/dL (31.8-35.4); Mean Corpuscular Volume 95.7 fl (81-99); Monocytes # 0.3 K/mm3 (0.1-1.0); Monocytes % 5.4 % (1.7-9.3); Neutrophils # 3.7 K/mm3 (1.8-7.8); Neutrophils % 59.2 % (37.0-80.0); Platelet Count 337 K/mm3 (142-424); Sodium 139 mmol/L (136-145); White Blood Count 6.3 K/mm3 (4.8-10.8)
[2023-03-09 07:00] LABS: Potassium 4.4 mmoL/L (3.5-5.1)
[2023-03-09 07:02] LABS: Alanine Aminotransferase 28 U/L (12-78); Albumin Level 3.9 g/dl (3.5-5.0); Albumin/Globulin Ratio 1.5 (1.1-1.8); Alkaline Phosphatase 44 U/L (38-126); Anion Gap 6.4 mEq/L (5-15); Aspartate Amino Transferase 38 U/L (14-36); Bilirubin,Total 0.8 mg/dl (0.2-1.3); Blood Urea Nitrogen 15 mg/dl (7-17); Carbon Dioxide 32 mmol/L (22.0-30.0); Creatinine Clearance Estimated 45 mL/min (50-200); Estimated Glomerular Filt Rate 60 ml/min (>60); GFR (African American) 73 ML/MIN (>60); Globulin 2.6 g/dL (1.3-3.2); Total Protein,Serum 6.5 g/dl (6.3-8.2)
[2023-03-09 07:03] LABS: Calcium 8.9 mg/dl (8.4-10.2); Glucose 119 mg/dl (74-100)
[2023-03-09 08:00] VITALS: BP 131/59; PULSE 55; RESP 18; TEMP 36.6; O2SAT 98
[2023-03-09 08:14] VITALS: BP 126/74
[2023-03-09 08:15] VITALS: BP 111/53
--- NOTE | 2023-03-09 09:35 | EXP.CARD.PN ---
Subjective Subjective Date: 03/09/23 Time: 08:00 Principal diagnosis: afib with rvr Interval history: Patient remains in normal sinus rhythm. EKG this morning shows sinus bradycardia with a rate in the 50s and a QTc interval of 451. Patient reports generalized weakness. Denies chest pain or shortness of breath. Exam Data for Last 24 hours Vital signs and Labs for Last 24 Hours: Temp Pulse Resp BP Pulse Ox O2 Del Method 97.8 F 55 L 18 111/53 L 98 Room Air 03/09/23 08:00 03/09/23 08:00 03/09/23 08:00 03/09/23 08:15 03/09/23 08:00 03/09/23 08:55 Laboratory Results - last 24 hr 03/09/23 06:32: WBC 6.3 D, RBC 4.20, Hgb 13.0, Hct 40.2, MCV 95.7, MCH 31.0, MCHC 32.4, RDW 15.0, Plt Count 337, MPV 10.0, Neut % (Auto) 59.2, Lymph % (Auto) 26.1, [place] % (Auto) 5.4, Eos % (Auto) 9.0, Baso % (Auto) 0.2, Neut # (Auto) 3.7, Lymph # (Auto) 1.6, [place] # (Auto) 0.3, Eos # (Auto) 0.6 H, Baso # (Auto) 0.0, Sodium 139, Potassium 4.4, Chloride 105, Carbon Dioxide 32 H, Anion Gap 6.4, BUN 15, Creatinine 0.90, Estimated Creat Clear 45, Estimated GFR 60, Est GFR ( Amer) 73, Glucose 119 H, Calcium 8.9, Total Bilirubin 0.8, AST 38 H, ALT 28, Alkaline Phosphatase 44, Total Protein 6.5, Albumin 3.9, Globulin 2.6, Albumin/Globulin Ratio 1.5 I & O for Last 24 hours: Intake & Output 03/06/23 03/07/23 03/08/23 03/09/23 23:59 23:59 23:59 23:59 Intake Total 630 / 630 1440 / 1680 1270 / 1270 240 / 240 Output Total 300 / 300 0 / 0 0 / 0 0 / 0 Balance 330 / 330 1440 / 1680 1270 / 1270 240 / 240 Weight 140 lb 15.77 oz 139 lb 15.896 oz 139 lb 15.896 oz 139 lb 15.896 oz Constitutional Constitutional: no acute distress *Routine Respiratory Exam Respiratory: Present CTA bilaterally and symmetric chest movement *Routine Cardiovascular Exam Cardiovascular: Present RRR, Normal S1 and Normal S2 *Routine Abdominal Exam Abdominal: Present soft and normoactive bowel sounds; Absent tenderness *Routine Extremities Exam Extremities: Present full ROM and normal capillary refill; Absent edema *Routine Skin Exam Skin: Present intact, dry and warm Detailed Neck Exam: Thyroids Thyroid: Absent bruit Progress Note: A&P Assessment and plan (1) Atrial fibrillation with RVR: Status: Resolved (2) CAD (coronary artery disease): Status: Chronic (3) HLD (hyperlipidemia): Status: Chronic (4) Hypertension: Status: Acute Assessment and Plan Assessment and Plan for All Diagnoses:: Patient was admitted last for HUMBERTO/Cardioversion for A-fib with initiation of sotalol. Patient converted to normal sinus rhythm on her own therefore HUMBERTO and cardioversion was canceled. Patient's metoprolol was switched to sotalol 80 mg p.o. twice daily. Patient has done well over the weekend only complaint is generalized weakness and dizziness when standing. Atrial fibrillation Chadsvasc score 6 Pericardial effusion -Will decrease sotalol to 60 mg p.o. twice daily for suppression of A-fib -Continue Xarelto 20 mg p.o. daily -EKG today is normal sinus rhythm with rate in the 50s, QTc 451 -Echo 01/2023: Normal biventricular systolic function, no significant valvular stenosis or regurgitation, small circumferential pericardial effusion. The largest pocket was noted posteriorly measuring up to 0.7 cm in diastole. No evidence of tamponade noted -Limited echo: Official report is pending but pericardial effusion appears to be stable. CV summary 03/09/2023: CV stable for discharge home. Please send patient home with prescription for sotalol 60 mg p.o. twice daily for suppression of A-fib. Please have patient follow-up in cardiology clinic this week for recheck.
--- NOTE | 2023-03-09 10:54 | EXP.DC.SUM ---
General Admission date:: 03/06/23 Discharge date: 03/09/23 HPI HPI HPI: Patient is a 82-year-old female with past medical history of CAD hypertension hyperlipidemia atrial fibrillation on Xarelto who presented to hospital due to A-fib with RVR on cardiology office. Patient mentions she had follow-up appointment with cardiology however she has been not feeling well at home since her discharge last time from the hospital, she was discharged from the hospital 1 week ago. Patient otherwise denied chest pain nausea vomiting diarrhea constipation however she had an episode of chest pain that radiated to her back. She was not on cardiology office for further evaluation, patient is likely to be started on sotalol plus minus cardioversion. Hospital Course Hospital Course Hospital Course: Patient is an 82-year-old female with past medical history of CAD hypertension hyperlipidemia atrial fibrillation on Xarelto who presented to hospital due to A-fib with RVR on cardiology office. Patient mentions she had follow-up appointment with cardiology however she has been not feeling well at home since her discharge last time from the hospital, she was discharged from the hospital 1 week ago. Patient otherwise denied chest pain nausea vomiting diarrhea constipation however she had an episode of chest pain that radiated to her back. Admitted for transition to sotalol. Tolerated transition well with good improvement in rate control. Improvement in symptoms but still having some minor intermittent dizziness. Patient overall doing better and stable for discharge home. Problems addressed as follows: A-fib with RVR Hypertension Hyperlipidemia CAD GERD Cardiology was consulted. Patient has a [id number] score of 6. In setting of her intolerance of previous medications for A-fib, she was transitioned to sotalol. Started on 80 mill grams twice daily. Given her dizziness, will decrease dose to 60 mg twice daily at discharge. Continue Xarelto 20 mill daily for anticoag and. EKG shows normal this rhythm on day of discharge. Echo 01/2023: Normal biventricular systolic function, no significant valvular stenosis or regurgitation, small circumferential pericardial effusion. The largest pocket was noted posteriorly measuring up to 0.7 cm in diastole. No evidence of tamponade noted. Limited echo obtained this admission: Official report is pending but pericardial effusion appears to be stable. Patient is stable at this time for discharge home. Plan for close follow-up with cardiology to evaluate suppression of her A-fib. Exam Data for Last 24 hours Vital signs and Labs for Last 24 Hours: Temp Pulse Resp BP Pulse Ox O2 Del Method 97.8 F 55 L 18 111/53 L 98 Room Air 03/09/23 08:00 03/09/23 08:00 03/09/23 08:00 03/09/23 08:15 03/09/23 08:00 03/09/23 08:55 Laboratory Results - last 24 hr 03/09/23 06:32: WBC 6.3 D, RBC 4.20, Hgb 13.0, Hct 40.2, MCV 95.7, MCH 31.0, MCHC 32.4, RDW 15.0, Plt Count 337, MPV 10.0, Neut % (Auto) 59.2, Lymph % (Auto) 26.1, [place] % (Auto) 5.4, Eos % (Auto) 9.0, Baso % (Auto) 0.2, Neut # (Auto) 3.7, Lymph # (Auto) 1.6, [place] # (Auto) 0.3, Eos # (Auto) 0.6 H, Baso # (Auto) 0.0, Sodium 139, Potassium 4.4, Chloride 105, Carbon Dioxide 32 H, Anion Gap 6.4, BUN 15, Creatinine 0.90, Estimated Creat Clear 45, Estimated GFR 60, Est GFR ( Amer) 73, Glucose 119 H, Calcium 8.9, Total Bilirubin 0.8, AST 38 H, ALT 28, Alkaline Phosphatase 44, Total Protein 6.5, Albumin 3.9, Globulin 2.6, Albumin/Globulin Ratio 1.5 I & O for Last 24 hours: Intake & Output 03/06/23 03/07/23 03/08/23 03/09/23 23:59 23:59 23:59 23:59 Intake Total 630 / 630 1440 / 1680 1270 / 1270 240 / 240 Output Total 300 / 300 0 / 0 0 / 0 0 / 0 Balance 330 / 330 1440 / 1680 1270 / 1270 240 / 240 Weight 63.95 kg 63.5 kg 63.5 kg 63.5 kg Constitutional Constitutional: no acute distress, average body habitus and chronically ill appearing *Routine HEENT Exam Hea
[2023-03-09 11:28] VITALS: BP 116/44; PULSE 50; RESP 18; TEMP 36.6; O2SAT 96
--- NOTE | 2023-03-10 13:41 | CARE MANAGER ---
Spoke with patient related to hospital discharge. Patient states she feels fine. She is aware of new medication and stopped the Metoprolol. She denies any questions or concerns and is aware of follow up appointments. ANGEL Mackay
== END 2023-03-09 15:21 | disposition home or self-care (01) | DRG 309 ==
PROVIDERS: Nurse Practitioner Family; Admitting Provider Internal Medicine; PCP Internal Medicine Adolescent Medicine; Visit Provider Internal Medicine
DX: I48.91 Unspecified atrial fibrillation (principal); I31.39 Other pericardial effusion (noninflammatory); I25.10 Atherosclerotic heart disease of native coronary artery without angina pectoris; E78.2 Mixed hyperlipidemia; I10 Essential (primary) hypertension; Z79.01 Long term (current) use of anticoagulants; M19.90 Unspecified osteoarthritis, unspecified site; Z86.16 Personal history of COVID-19; K21.9 Gastro-esophageal reflux disease without esophagitis; M81.0 Age-related osteoporosis without current pathological fracture
CPT/HCPCS: G0379; 36415; 71046; 80048; 80053; 80061; 80076; 83605; 84484; 85025; 85610; 93005; 93308

== ENCOUNTER 2023-04-20 09:53 | Outpatient (CLI) | payer MEDICARE, OTHER, SELFPAY ==
[2023-04-20 10:05] VITALS: BP 137/55; PULSE 55; RESP 18; TEMP 35.9; O2SAT 98
[2023-04-20] MEDS: DENOSUMAB 60 MG/ML SYRINGE SQ (10:07)
== END 2023-04-20 10:17 | disposition home or self-care (01) ==
LOC: INF 09:54
PROVIDERS: PCP Internal Medicine Adolescent Medicine; Visit Provider Internal Medicine Adolescent Medicine
DX: M81.0 Age-related osteoporosis without current pathological fracture (principal)
CPT/HCPCS: 96372; J0897

== ENCOUNTER 2023-10-15 10:06 | Outpatient (CLI) | payer MEDICARE, OTHER, SELFPAY ==
[2023-10-15 10:28] LABS: Basophils # 0.1 K/mm3 (0-0.2); Basophils % 0.9 % (0.1-2.0); Eosinophils # 0.2 K/mm3 (0.0-0.4); Eosinophils % 3.2 % (0.1-12.0); Hematocrit 41.5 % (37.0-47.0); Hemoglobin 13.3 g/dL (12.2-16.2); Lymphocytes # 1.5 K/mm3 (0.7-4.5); Lymphocytes % 24.2 % (10-50); Mean Corpuscular HGB Conc 31.9 g/dL (31.8-35.4); Mean Corpuscular Hemoglobin 31.5 pg (27.0-31.2); Mean Corpuscular Volume 98.6 fl (81-99); Mean Platelet Volume 10.7 fl (7.4-10.4); Monocytes # 0.3 K/mm3 (0.1-1.0); Monocytes % 5.5 % (1.7-9.3); Neutrophils % 66.2 % (37.0-80.0); Platelet Count 457 K/mm3 (142-424); Red Blood Count 4.21 M/mm3 (4.20-5.40); Red Cell Distribution Width 14.5 % (11.5-17.5)
[2023-10-15 11:09] LABS: Alanine Aminotransferase 21 U/L (12-78); Albumin Level 4.1 g/dl (3.5-5.0); Alkaline Phosphatase 47 U/L (38-126); Anion Gap 8.6 mEq/L (5-15); Aspartate Amino Transferase 31 U/L (14-36); Bilirubin,Indirect 0.8 mg/dL (0.0-0.9); Bilirubin,Total 0.8 mg/dl (0.2-1.3); Bilirubin,Unconjugated 0.9 mg/dL (0.0-1.1); Blood Urea Nitrogen 19 mg/dl (7-17); Calcium 9.5 mg/dl (8.4-10.2); Carbon Dioxide 30 mmol/L (22.0-30.0); Chloride 106 mmol/L (98-107); Chol/HDL Ratio 1.9 (1-3.5); Cholesterol 138 mg/dl (140-200); Estimated Glomerular Filt Rate 69 ml/min (>60); GFR (African American) 83 ML/MIN (>60); Glucose 92 mg/dl (74-100); HDL Cholesterol 72 mg/dl (40-60); Potassium 4.6 mmoL/L (3.5-5.1); Sodium 140 mmol/L (136-145); Total Protein,Serum 6.4 g/dl (6.3-8.2); Triglycerides 41 mg/dl (30-150); VLDL Cholesterol 8 mg/dL (0-40)
[2023-10-15 11:20] LABS: Direct LDL Cholesterol 47.66 mg/dL (100-129)
[2023-10-15 11:26] LABS: Free T4 (Free Thyroxine) 1.34 ng/dl (0.78-2.19)
[2023-10-15 11:42] LABS: Thyroid Stimulating Hormone 2.07 uIU/mL (0.465-4.68)
== END 2023-10-15 23:59 | disposition home or self-care (01) ==
LOC: LAB 10:07
PROVIDERS: PCP Internal Medicine Adolescent Medicine; Visit Provider Nurse Practitioner
DX: I48.0 Paroxysmal atrial fibrillation (principal); I25.10 Atherosclerotic heart disease of native coronary artery without angina pectoris; E78.2 Mixed hyperlipidemia; I11.9 Hypertensive heart disease without heart failure; K21.9 Gastro-esophageal reflux disease without esophagitis; R06.00 Dyspnea, unspecified
CPT/HCPCS: 36415; 80048; 80061; 80076; 84439; 84443; 85025

== ENCOUNTER 2023-10-20 09:54 | Outpatient (CLI) | payer MEDICARE, OTHER, SELFPAY ==
[2023-10-20 10:08] VITALS: BP 137/73; PULSE 55; RESP 18; TEMP 36.7; O2SAT 99
[2023-10-20] MEDS: DENOSUMAB 60 MG/ML SYRINGE SQ (10:08)
== END 2023-10-20 10:18 | disposition home or self-care (01) ==
LOC: INF 09:55
PROVIDERS: PCP Internal Medicine Adolescent Medicine; Visit Provider Internal Medicine Adolescent Medicine
DX: M81.0 Age-related osteoporosis without current pathological fracture (principal); Z79.899 Other long term (current) drug therapy
CPT/HCPCS: 96372; J0897

== ENCOUNTER 2023-12-10 17:41 | Emergency (ER) | payer MEDICARE, OTHER, SELFPAY ==
[2023-12-10] VITALS (8 sets, daily range): BP systolic 143–172; BP diastolic 58–71; PULSE 52–61; RESP 9–16; TEMP 36.6; O2SAT 98–100; BMI 25.0
--- NOTE | 2023-12-10 17:51 | ECG_ITS ---
APPROVED REPORT Exam: Resting ECG HR:57 bpm ECG Measurements Heart Rate 57 AXES WA 209 P 83 QRSd 87 QRS 50 QT 394 T 71 QTc 388 Conclusion SINUS BRADYCARDIA WITH OCCASIONAL SUPRAVENTRICULAR PREMATURE COMPLEXES BORDERLINE ECG UNCONFIRMED REPORT Electronically signed by : ANITRA SIMS, 12/11/2023 00:33:13
--- NOTE | 2023-12-10 17:59 | HMH.EDGENADL ---
Discharge Plan Disposition Patient Disposition: Home, Self-Care Condition: Good Chief Complaint: Headache Prescriptions Prescriptions: No Action cholecalciferol (vitamin D3) 25 mcg (1,000 unit) capsule 25 mcg PO DAILY sotalol 120 mg tablet 60 mg PO BID Qty: 90 3RF Xarelto 20 mg tablet See Rx Instructions .ROUTE .COMPLEX Qty: 90 3RF Dose Instruction: TAKE 1 TABLET BY MOUTH ONCE DAILY WITH EVENING MEAL FOR BLOOD THINNER Rx Instructions: TAKE 1 TABLET BY MOUTH ONCE DAILY WITH EVENING MEAL FOR BLOOD THINNER atorvastatin 40 mg tablet See Rx Instructions .ROUTE .COMPLEX Qty: 90 3RF Dose Instruction: TAKE 1 TABLET BY MOUTH AT BEDTIME NIGHTLY FOR CHOLESTEROL Rx Instructions: TAKE 1 TABLET BY MOUTH AT BEDTIME NIGHTLY FOR CHOLESTEROL omeprazole 20 MG tablet,delayed release (DR/EC) 20 mg PO DAILY Prolia 60 mg/mL Syringe 60 mg SQ DIRECTED Rx Instructions: [id number] Referrals Follow up/Referrals: Allne Love MD [Primary Care Provider] - See instructions Activity Restrictions/Add. Instructions Additional Instructions/Restrictions: You have been evaluated in the ED for your complaints. You may follow-up with your PCP in the next 3 to 5 days. Please return to ED for any new or worsening symptoms. As discussed, please continue to take your blood pressure medications as prescribed. I recommend that you do not miss any doses. If you experience any new or worsening symptoms such as chest pain, excruciating headache, shortness of breath, syncope, please return to ED for further management. Clinical Impressions Clinical Impression: Headache Hypertension Qualifiers: Hypertension type: primary hypertension Qualified Code(s): I10 - Essential (primary) hypertension Print Language Print Language: Pakistani Discharge ED Provider: Garcia Srinivasan Adult HPI General Chief complaint: Headache Stated complaint: HBP, MILLS Time Seen by Provider: 12/10/23 17:59 Mode of Arrival: Ambulatory Source of Information: Patient Limitations: No Limitations Description of Symptoms (Recalled from ER Triage Doc. by RN): headache,high blood pressure History of Present Illness HPI narrative: 83-year-old female with past medical history significant for atrial fibrillation on Xarelto, HTN, HLD, CAD, nephrolithiasis, presents today for evaluation concerning a generalized headache in the setting of high blood pressure reading at home. Patient states that earlier today she had a headache at home and checked her blood pressure and noted that it was 180/71. States that she was also lightheaded at the time. She reports mild episode of shortness of breath but denies any chest pain, fevers, chills, abdominal pain, back pain or any other associated symptoms at this time. She has not missed any of her medication doses. No further complaints. Related Data Home Medications ?Medication ?Instructions ?Recorded ?Confirmed omeprazole 20 mg tablet,delayed 20 mg PO DAILY Acid Reflux 03/17/20 10/20/23 release cholecalciferol (vitamin D3) 25 25 mcg PO DAILY Supplement 11/14/20 10/20/23 mcg (1,000 unit) capsule denosumab 60 mg/mL subcutaneous 60 mg SQ DIRECTED 03/05/23 10/20/23 syringe (Prolia) Previous Rx's ?Medication ?Instructions ?Recorded rivaroxaban 20 mg tablet (Xarelto) See Rx Instructions .Route 04/15/23 .COMPLEX #90 tabs sotalol 120 mg tablet 60 mg (1/2 x 120 mg) PO BID #90 04/16/23 tabs atorvastatin 40 mg tablet See Rx Instructions .Route 07/27/23 .COMPLEX #90 tabs Allergies Allergy/AdvReac Type Severity Reaction Status Date / Time amoxicillin Allergy Severe Unknown Verified 10/20/23 10:33 allergy reaction metronidazole [From Flagyl] Allergy Severe Unknown Verified 10/20/23 10:33 allergy reaction protectives, O.U. Allergy Severe Unknown Verified 10/20/23 10:33 [From Sensi-Care (foam)] allergy reaction Penicillins Allergy Intermediate EDEMA Verified 10/20/23 10:33 apixaban [From Eliquis] Allergy Mild Rash Verified 10/20/23 10:33 Sulfa (Sulfonamide Allergy Unknown Unknown Verified 10/20/23 10:33 Antibiotics) allergy [SULFA (SULFONAMIDE reaction ANTIBIOTICS)] adhesive tape Allergy Unknown Verified 10/20/23 10:33 allergy reaction amiodarone AdvReac Mild GI UPSET Verified 10/20/23 10:33 acetaminophen AdvReac Nausea Verified 10/20/23 10:33 [facility] Disclaimer: The information contained in this section may have been updated after the patient was seen, as this information can be updated by other users. Medical History COVID-19 Shortness of Breath Diarrhea Arthritis Kidney stones Skin cancer A-fib Arrhythmia GERD (gastroesophageal reflux disease) HTN (hypertension) Osteoporosis HLD (hyperlipidemia) Atherosclerotic cardiovascular disease CAD (coronary artery disease) Surgical History Hx of local excision of skin lesion History of colonoscopy History of cardiac catheterization History of tonsillectomy Family History Other No significant family history Social History (Updated 10/20/23 @ 10:27 by Charlee Bangura RN) Smoking Status: Never smoker alcohol intake: current alcohol intake frequency: a few times a month substance use type: denies use current occupational status: retired Travel in the last 8 weeks: None household members: spouse housing: house current occupation: RETIRED [employer] caffeine: No ROS Obtained: Yes All systems reviewed & no additional complaints except as documented Physical Exam General General appearance: alert and in no apparent distress Head Head exam: atraumatic and normocephalic Eye Eye exam: Present normal appearance, PERRL and EOMI ENT ENT exam: Present normal oropharynx and mucous membranes moist Neck Neck exam: Present full ROM; Absent meningismus Respiratory Respiratory exam: Absent respiratory distress, wheezes, stridor or accessory muscle use Cardiovascular Cardiovascular exam: Present normal rhythm Abdominal Exam Abdominal exam: Present soft; Absent distention, tenderness, guarding, rebound or rigidity Neurological Exam Neurological exam: Present alert, oriented X3 and CN II-XII intact; Absent motor sensory deficit Psychiatric Psychiatric exam: Present normal affect and normal mood Skin Skin exam: Present warm and dry Medical Decision Making Medical Records Medical records reviewed: Yes I reviewed the patient's medical records. Rod Inquiry Pt receiving controlled substance: No Rod was queried for this patient: No Vital Signs: 12/10/23 17:42 12/10/23 17:55 12/10/23 18:15 Temperature 97.9 F Temperature Source Oral Pulse Rate 55 L 52 L Pulse Rate [Right] 61 Respiratory Rate 16 12 12 Blood Pressure 143/59 H Blood Pressure [Right Arm] 172/67 H Blood Pressure Mean Blood Pressure Mean [Right Arm] 102 Blood Pressure Source Blood Pressure Position 02 Sat by Pulse Oximetry 98 98 99 Oxygen Delivery Method Room Air 12/10/23 18:30 12/10/23 19:01 12/10/23 19:27 Temperature 97.8 F Temperature Source Oral Pulse Rate 54 L 56 L 56 L Pulse Rate [Right] Respiratory Rate 9 L 13 16 Blood Pressure 147/58 H 149/60 H 149/60 H Blood Pressure [Right Arm] Blood Pressure Mean 85 Blood Pressure Mean [Right Arm] Blood Pressure Source Automatic Cuff Blood Pressure Position Sitting 02 Sat by Pulse Oximetry 98 98 Oxygen Delivery Method Room Air Room Air 12/10/23 19:33 Temperature Temperature Source Pulse Rate 58 L Pulse Rate [Right] Respiratory Rate Blood Pressure 162/71 H Blood Pressure [Right Arm] Blood Pressure Mean 101 Blood Pressure Mean [Right Arm] Blood Pressure Source Blood Pressure Position 02 Sat by Pulse Oximetry 100 Oxygen Delivery Method Room Air Lab Data Lab Results 12/10/23 17:49: WBC 7.5, RBC 4.40, Hgb 13.7, Hct 43.4, MCV 98.6, MCH 31.1, MCHC 31.6 L, RDW 13.6, Plt Count 541 H, MPV 9.6, Neut % (Auto) 54.5, Lymph % (Auto) 35.4, [place] % (Auto) 5.1, Eos % (Auto) 4.1, Baso % (Auto) 0.9, Neut # (Auto) 4.1, Lymph # (Auto) 2.6, [place] # (Auto) 0.4, Eos # (Auto) 0.3, Baso # (Auto) 0.1, PT 13.0 H, INR 1.18 H, Sodium 140, Potassium 4.1, Chloride 105, Carbon Dioxide 31 H, Anion Gap 8.1, BUN 17, Creatinine 0.80, Estimated Creat Clear 47, Estimated GFR 69, Est GFR ( Amer) 83, Glucose 105 H, Calcium 9.1, Total Bilirubin 0.6, AST 38 H, ALT 30, Alkaline Phosphatase 53, Troponin I < 0.01, Total Protein 6.8, Albumin 4.1, Globulin 2.7, Albumin/Globulin Ratio 1.5 12/10/23 17:49 12/10/23 17:49 Orders (Tests/Meds): ORDERS Category Date Time Status CBC [Complete Blood Count Auto Diff] Stat Lab 12/10/23 17:49 Completed CMP [Comprehensive Metabolic Panel] Stat Lab 12/10/23 17:49 Completed PT INR [Prothrombin Time INR] Stat Lab 12/10/23 17:49 Completed Trop I [Troponin I] Stat Lab 12/10/23 17:49 Completed Troponin I Q3H Lab 12/10/23 21:30 Ordered Troponin I Q3H Lab 12/11/23 00:30 Ordered Medical Decision Narrative: 83-year-old female with past medical history significant for atrial fibrillation on Xarelto, HTN, HLD, CAD, nephrolithiasis, presents today for evaluation concerning a generalized headache in the setting of high blood pressure reading at home. Patient states that earlier today she had a headache at home and checked her blood pressure and noted that it was 180/71. States that she was also lightheaded at the time. She reports mild episode of shortness of breath but denies any chest pain, fevers, chills, abdominal pain, back pain or any other associated symptoms at this time. She has not missed any of her medication doses. On assessment she was hemodynamically stable and in no acute distress. Afebrile. Her chest was clear to auscultation bilaterally. Abdomen soft nondistended and nontender to palpation. Blood pressure reading of 143/59 at bedside. She complains of a very mild headache at this time and states that she does not want any medication interventions at this time. Other physical exam vitals unremarkable differential diagnoses include not limited to hypertensive urgency, hypertensive crisis, tension headache, cluster headache, migraine headache, electrolyte disturbance, among others. EKG was ordered and personally interpreted by me and was remarkable for sinus bradycardia with a rate of 57 bpm. No ischemic changes. QTc of. 88. IL interval is 209. QRS of 87. Labs today are reassuring. Creatinine within range at 0.8. Patient was monitored in the ED and remained stable and in no acute distress. On reassessment she stated that her headache was completely resolved. She also relayed to me at this time that she does not always take her blood pressure medications. I counseled patient in regards to medication compliance and she verbalized understanding agreement. Given that patient continues to have normal logical exam, no headache, normal labs and appropriate blood pressure, will plan to discharge with PCP follow-up. Provided with strict return precautions. Patient verbalized understanding and agreement with plan. Subsequently discharged. Critical Care Critical Care Time Critical Care Time: No
[2023-12-10 18:27] LABS: Basophils # 0.1 K/mm3 (0-0.2); Basophils % 0.9 % (0.1-2.0); Eosinophils # 0.3 K/mm3 (0.0-0.4); Eosinophils % 4.1 % (0.1-12.0); Hematocrit 43.4 % (37.0-47.0); Hemoglobin 13.7 g/dL (12.2-16.2); Lymphocytes # 2.6 K/mm3 (0.7-4.5); Lymphocytes % 35.4 % (10-50); Mean Corpuscular HGB Conc 31.6 g/dL (31.8-35.4); Mean Corpuscular Hemoglobin 31.1 pg (27.0-31.2); Mean Corpuscular Volume 98.6 fl (81-99); Mean Platelet Volume 9.6 fl (7.4-10.4); Monocytes # 0.4 K/mm3 (0.1-1.0); Monocytes % 5.1 % (1.7-9.3); Neutrophils # 4.1 K/mm3 (1.8-7.8); Neutrophils % 54.5 % (37.0-80.0); Platelet Count 541 K/mm3 (142-424); Red Cell Distribution Width 13.6 % (11.5-17.5); White Blood Count 7.5 K/mm3 (4.8-10.8)
[2023-12-10 18:28] LABS: Albumin Level 4.1 g/dl (3.5-5.0); Chloride 105 mmol/L (98-107); Potassium 4.1 mmoL/L (3.5-5.1); Sodium 140 mmol/L (136-145)
[2023-12-10 18:30] LABS: Blood Urea Nitrogen 17 mg/dl (7-17); Creatinine Clearance Estimated 47 mL/min (50-200); Estimated Glomerular Filt Rate 69 ml/min (>60); GFR (African American) 83 ML/MIN (>60)
[2023-12-10 18:31] LABS: Alanine Aminotransferase 30 U/L (12-78); Albumin/Globulin Ratio 1.5 (1.1-1.8); Alkaline Phosphatase 53 U/L (38-126); Anion Gap 8.1 mEq/L (5-15); Aspartate Amino Transferase 38 U/L (14-36); Bilirubin,Total 0.6 mg/dl (0.2-1.3); Calcium 9.1 mg/dl (8.4-10.2); Carbon Dioxide 31 mmol/L (22.0-30.0); Globulin 2.7 g/dL (1.3-3.2); Glucose 105 mg/dl (74-100); Total Protein,Serum 6.8 g/dl (6.3-8.2)
[2023-12-10 18:32] LABS: INR 1.18 (0.9-1.1)
[2023-12-10 18:44] LABS: Troponin I < 0.01 ng/ml (0.00-0.034)
--- NOTE | 2023-12-10 19:30 | PC.NURSE ---
Pt ambulatory to restroom, no complaints of dizziness, headache pain 2/10 at this time, family at bedside, pt placed back on monitor no needs at this time
--- NOTE | 2023-12-10 20:08 | PC.NURSE ---
Pt educated on tracking her BP at home and keeping log to take to follow up with Dr Love and to return here if it continues to get out of control.
== END 2023-12-10 20:09 | disposition home or self-care (01) ==
PROVIDERS: Emergency Provider Emergency Medicine; PCP Internal Medicine Adolescent Medicine
DX: R51.9 Headache, unspecified (principal); I10 Essential (primary) hypertension; I48.91 Unspecified atrial fibrillation; E78.5 Hyperlipidemia, unspecified; I25.10 Atherosclerotic heart disease of native coronary artery without angina pectoris; R06.02 Shortness of breath; R00.1 Bradycardia, unspecified
CPT/HCPCS: 80053; 84484; 85025; 85610; 93005; 99285

== ENCOUNTER 2024-02-04 19:27 | Observation (INO) | payer MEDICARE, OTHER, SELFPAY ==
[2024-02-04 19:30] VITALS: BP 168/71; PULSE 61; RESP 13; TEMP 36.6; O2SAT 99; BMI 25.0
[2024-02-04 19:46] VITALS: BMI 25.0
--- NOTE | 2024-02-04 19:46 | ED_ITS ---
Discharge Plan Disposition Patient Disposition: Admitted Chief Complaint: Syncope Prescriptions Prescriptions: No Action cholecalciferol (vitamin D3) 25 mcg (1,000 unit) capsule 25 mcg PO DAILY sotalol 120 mg tablet 60 mg PO BID Qty: 90 3RF Xarelto 20 mg tablet See Rx Instructions .ROUTE .COMPLEX Qty: 90 3RF Dose Instruction: TAKE 1 TABLET BY MOUTH ONCE DAILY WITH EVENING MEAL FOR BLOOD THINNER Rx Instructions: TAKE 1 TABLET BY MOUTH ONCE DAILY WITH EVENING MEAL FOR BLOOD THINNER atorvastatin 40 mg tablet See Rx Instructions .ROUTE .COMPLEX Qty: 90 3RF Dose Instruction: TAKE 1 TABLET BY MOUTH AT BEDTIME NIGHTLY FOR CHOLESTEROL Rx Instructions: TAKE 1 TABLET BY MOUTH AT BEDTIME NIGHTLY FOR CHOLESTEROL omeprazole 20 MG tablet,delayed release (DR/EC) 20 mg PO DAILY Prolia 60 mg/mL Syringe 60 mg SQ DIRECTED Rx Instructions: [id number] Referrals Follow up/Referrals: Allen Love MD [Primary Care Provider] - See instructions Clinical Impressions Clinical Impression: Pre-syncope, Weakness Instructions Patient Instructions: DI for Syncope in Adults (Fainting), DI for Syncope in Children (Fainting) Print Language Print Language: Citizen Of [place] Discharge ED Provider: Davi Castanon General Adult HPI General Chief complaint: Syncope Stated complaint: fuzzy head, weak Time Seen by Provider: 02/04/24 19:35 History of Present Illness HPI narrative: Patient is a 83-year-old female with past medical history of hypertension, atrial fibrillation on anticoagulation, hyperlipidemia, coronary artery disease who presents emergency department for evaluation of episodic weakness. History is obtained by patient at bedside, over the last few months occurring at least weekly she has had symptoms that occur with exertion and at rest. With respect at rest they occur while sitting, she feels as if she is going to pass out and has tunnel vision, no true loss of consciousness, has global weakness and this lasts for anywhere from minutes to hours. She also has lightheadedness while rising from a seated position in the mornings. No vomiting, no trauma, no chest pain, no abdominal pain, no other acute complaints at this time. Related Data Home Medications ?Medication ?Instructions ?Recorded ?Confirmed omeprazole 20 mg tablet,delayed 20 mg PO DAILY Acid Reflux 03/17/20 01/19/24 release cholecalciferol (vitamin D3) 25 25 mcg PO DAILY Supplement 11/14/20 01/19/24 mcg (1,000 unit) capsule denosumab 60 mg/mL subcutaneous 60 mg SQ DIRECTED 03/05/23 01/19/24 syringe (Prolia) Previous Rx's ?Medication ?Instructions ?Recorded rivaroxaban 20 mg tablet (Xarelto) See Rx Instructions .Route 04/15/23 .COMPLEX #90 tabs sotalol 120 mg tablet 60 mg (1/2 x 120 mg) PO BID #90 04/16/23 tabs atorvastatin 40 mg tablet See Rx Instructions .Route 07/27/23 .COMPLEX #90 tabs Allergies Allergy/AdvReac Type Severity Reaction Status Date / Time amoxicillin Allergy Severe Unknown Verified 01/19/24 09:54 allergy reaction metronidazole [From Flagyl] Allergy Severe Unknown Verified 01/19/24 09:54 allergy reaction protectives, O.U. Allergy Severe Unknown Verified 01/19/24 09:54 [From Sensi-Care (foam)] allergy reaction Penicillins Allergy Intermediate EDEMA Verified 01/19/24 09:54 apixaban [From Eliquis] Allergy Mild Rash Verified 01/19/24 09:54 Sulfa (Sulfonamide Allergy Unknown Unknown Verified 01/19/24 09:54 Antibiotics) allergy [SULFA (SULFONAMIDE reaction ANTIBIOTICS)] adhesive tape Allergy Unknown Verified 01/19/24 09:54 allergy reaction amiodarone AdvReac Mild GI UPSET Verified 01/19/24 09:54 acetaminophen AdvReac Nausea Verified 01/19/24 09:54 [facility] Disclaimer: The information contained in this section may have been updated after the patient was seen, as this information can be updated by other users. Medical History COVID-19 Shortness of Breath Diarrhea Arthritis Kidney stones Skin cancer A-fib Arrhythmia GERD (gastroesophageal reflux disease) HTN (hypertension) Osteoporosis HLD (hyperlipidemia) Atherosclerotic cardiovascular disease CAD (coronary artery disease) Surgical History Hx of local excision of skin lesion History of colonoscopy History of cardiac catheterization History of tonsillectomy Family History Other No significant family history Social History Smoking Status: Never smoker alcohol intake: current alcohol intake frequency: a few times a month substance use type: denies use current occupational status: retired Travel in the last 8 weeks: None household members: spouse housing: house 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 caffeine: No Other Medical History Have you received the Flu Vaccine for this season: No Have you received the Pneumonia Vaccine: Yes ROS Obtained: Yes Systems reviewed as appropriate & no additional complaints except as documented Physical Exam General General appearance: alert and in no apparent distress Head Head exam: atraumatic and normocephalic Eye Eye exam: Present PERRL ENT ENT exam: Present mucous membranes moist Neck Neck exam: Present normal inspection Chest Chest inspection: Present normal inspection and symmetric chest wall rise Respiratory Respiratory exam: Present normal lung sounds bilaterally; Absent respiratory distress Cardiovascular Cardiovascular exam: Present regular rate and normal rhythm Abdominal Exam Abdominal exam: Present soft; Absent tenderness Extremities Exam Extremities exam: Present normal inspection Neurological Exam Neurological exam: Present alert and CN II-XII intact; Absent motor sensory deficit Psychiatric Psychiatric exam: Present normal affect Skin Skin exam: Present warm and dry Medical Decision Making Medical Records Screening: Per USPSTF and CDC recommendations, given the prevalence of disease in our region, it is our hospital?s policy to screen for HIV and viral Hepatitis for all patients aged 18 and over and those with ongoing risk factors. Rod Inquiry Pt receiving controlled substance: No Vital Signs: 02/04/24 19:30 02/04/24 19:59 Temperature 97.9 F Temperature Source Oral Pulse Rate [Left] 61 Pulse Rate [Orthostatic Lying Right Radial] 56 L Pulse Rate [Orthostatic Sitting Right Radial] 58 L Pulse Rate [Orthostatic Standing Right Radial] 57 L Respiratory Rate 13 Blood Pressure [Orthostatic Lying Right Arm] 146/60 H Blood Pressure [Orthostatic Sitting Right Arm] 173/69 H Blood Pressure [Orthostatic Standing Right Arm] 147/58 H Blood Pressure [Right Arm] 168/71 H Blood Pressure Mean [Right Arm] 103 02 Sat by Pulse Oximetry 99 Oxygen Delivery Method Room Air Lab Data Lab Results 02/04/24 19:40: WBC 8.3, RBC 4.56, Hgb 14.2, Hct 43.4, MCV 95.0, MCH 31.2, MCHC 32.9, RDW 14.0, Plt Count 543 H, MPV 9.1, Neut % (Auto) 56.3, Lymph % (Auto) 33.3, [place] % (Auto) 5.5, Eos % (Auto) 4.1, Baso % (Auto) 0.8, Neut # (Auto) 4.7, Lymph # (Auto) 2.8, [place] # (Auto) 0.5, Eos # (Auto) 0.3, Baso # (Auto) 0.1, Sodium 141, Potassium 4.2, Chloride 104, Carbon Dioxide 31 H, Anion Gap 10.2, BUN 17, Creatinine 0.90, Estimated Creat Clear 48, Estimated GFR 60, Est GFR ( Amer) 73, Glucose 110 H, Calcium 9.4, Magnesium 1.7, Total Bilirubin 0.6, AST 39 H, ALT 30, Alkaline Phosphatase 37 L, Troponin I < 0.01, Total Protein 6.9, Albumin 4.3, Globulin 2.6, Albumin/Globulin Ratio 1.7, TSH 4.79 H, HIV 1&2 Antibody Rapid Nonreactive 02/04/24 20:51: Urine Color Yellow, Urine Appearance Clear, Urine pH 6.0, Ur Specific [place] 1.015, Urine Protein Negative, Urine Glucose (UA) Negative, Urine Ketones Negative, Urine Blood Negative, Urine Nitrate Negative, Urine Bilirubin Negative, Urine Urobilinogen 0.2, Ur Leukocyte Esterase 1+ A, Urine RBC 5-10, Urine WBC 10-20, Ur Squamous Epith Cells 10-20, Urine Bacteria Trace 02/04/24 19:40 02/04/24 19:40 Orders (Tests/Meds): ORDERS Category Date Time Status CBC w/Auto Diff [Complete Blood Count Auto Diff] Stat Lab 02/04/24 19:40 Completed CMP [Comprehensive Metabolic Panel] Stat Lab 02/04/24 19:40 Completed HIV (1&2) Antibody Rapid Stat Lab 02/04/24 19:40 Completed Hep C Ab with Reflex to RNA Stat Lab 02/04/24 19:40 Received MG [Magnesium] Stat Lab 02/04/24 19:40 Completed TSH [Thyroid Stimulating Hormone] Stat Lab 02/04/24 19:40 Completed Trop I [Troponin I] Stat Lab 02/04/24 19:40 Completed Troponin I Q3H Lab 02/04/24 22:45 Ordered Troponin I Q3H Lab 02/05/24 01:45 Ordered UA [Urinalysis and Microscopic] Stat Lab 02/04/24 20:51 Completed Urine Culture Stat Micro 02/04/24 20:51 Received ECG Data Tracing #1: Independently interpreted by me rate 54, rhythm is regular, sinus bradycardia, no ST elevation in anatomical contiguous leads, QTc 383 Medical Decision Narrative: In summary patient is a 83-year-old female past medical history described above who presents emergency department for evaluation of episodic weakness. Patient is hemodynamically stable and nontoxic-appearing upon arrival, bradycardic. Her history of rising from a seated position with lightheadedness is strongly consistent with vasovagal however given multiple episodes occurring at rest I have concern for cardiac arrhythmia. Differential includes silent ACS, electrolyte abnormality, among others. Workup will be conducted with hematologic labs, chest x-ray, EKG, urinalysis. Initial inventions include p.o. challenge. Initial workup reviewed by me, no significant leukocytosis, no anemia, no critical electrolyte abnormality or BEAR, initial troponin undetectably low. TSH mildly elevated but not concerning. Urinalysis is contaminated, nitrate negative. Given that she does not have symptomatic dysuria empiric treatment will be deferred at this time. Given that these episodes occur at rest and I have concern for cardiogenic components of the presyncope patient would benefit from period of observation and cardiology evaluation. Case discussed with hospital medicine regarding management patient be admitted to their service for continued evaluation at this time. Critical Care Critical Care Time Critical Care Time: No
--- NOTE | 2024-02-04 19:52 | ECG_ITS ---
APPROVED REPORT Exam: Resting ECG HR:54 bpm ECG Measurements Heart Rate [address] 209 P 79 QRSd 92 QRS 53 QT 397 T 81 QTc 383 Conclusion SINUS BRADYCARDIA WITH SINUS ARRHYTHMIA BORDERLINE ECG Electronically signed by : ROCIO SOARES, 02/04/2024 23:23:03
[2024-02-04 19:59] VITALS: BP 146/60; BP 147/58; BP 173/69; PULSE 56; PULSE 57; PULSE 58
[2024-02-04 20:14] LABS: Basophils # 0.1 K/mm3 (0-0.2); Basophils % 0.8 % (0.1-2.0); Eosinophils # 0.3 K/mm3 (0.0-0.4); Eosinophils % 4.1 % (0.1-12.0); Hematocrit 43.4 % (37.0-47.0); Hemoglobin 14.2 g/dL (12.2-16.2); Lymphocytes # 2.8 K/mm3 (0.7-4.5); Lymphocytes % 33.3 % (10-50); Mean Corpuscular HGB Conc 32.9 g/dL (31.8-35.4); Mean Corpuscular Hemoglobin 31.2 pg (27.0-31.2); Mean Platelet Volume 9.1 fl (7.4-10.4); Monocytes # 0.5 K/mm3 (0.1-1.0); Monocytes % 5.5 % (1.7-9.3); Neutrophils # 4.7 K/mm3 (1.8-7.8); Neutrophils % 56.3 % (37.0-80.0); Platelet Count 543 K/mm3 (142-424); Red Blood Count 4.56 M/mm3 (4.20-5.40); White Blood Count 8.3 K/mm3 (4.8-10.8)
[2024-02-04 20:15] LABS: Alanine Aminotransferase 30 U/L (12-78); Albumin Level 4.3 g/dl (3.5-5.0); Albumin/Globulin Ratio 1.7 (1.1-1.8); Alkaline Phosphatase 37 U/L (38-126); Anion Gap 10.2 mEq/L (5-15); Aspartate Amino Transferase 39 U/L (14-36); Bilirubin,Total 0.6 mg/dl (0.2-1.3); Blood Urea Nitrogen 17 mg/dl (7-17); Calcium 9.4 mg/dl (8.4-10.2); Carbon Dioxide 31 mmol/L (22.0-30.0); Chloride 104 mmol/L (98-107); Creatinine Clearance Estimated 48 mL/min (50-200); Estimated Glomerular Filt Rate 60 ml/min (>60); GFR (African American) 73 ML/MIN (>60); Globulin 2.6 g/dL (1.3-3.2); Glucose 110 mg/dl (74-100); Magnesium 1.7 mg/dl (1.6-2.3); Potassium 4.2 mmoL/L (3.5-5.1); Sodium 141 mmol/L (136-145); Total Protein,Serum 6.9 g/dl (6.3-8.2)
[2024-02-04 20:37] LABS: Troponin I < 0.01 ng/ml (0.00-0.034)
[2024-02-04 20:46] LABS: Thyroid Stimulating Hormone 4.79 uIU/mL (0.465-4.68)
[2024-02-04 20:55] LABS: Microscopic, Urine URINE MICROSCOPIC (MICROSCOPIC)
[2024-02-04 20:57] LABS: Appearance,Urine CLEAR (Clear); Bilirubin,Urine Negative (Negative); Blood, Urine Negative (Negative); Color,Urine YELLOW (Yellow); Glucose,Urine (UA) Negative (Negative); Ketones,Urine Negative (Negative); Leukocyte Esterase,Urine 1+ (Negative); Nitrate,Urine Negative (Negative); Protein,Urine Negative (Negative); Specific Gravity, Urine 1.015 (1.005-1.030); Urobilinogen,Urine 0.2 EU/dl (0.2)
[2024-02-04 21:15] LABS: Bacteria,Urine Trace /lpf
[2024-02-04 21:19] LABS: HIV (1&2) Antibody Rapid NONREACTIVE (NONREACTIVE)
--- NOTE | 2024-02-04 22:05 | PC.NURSE ---
Report called to ANGEL Arnold
[2024-02-04 22:12] VITALS: BP 132/51; PULSE 58; RESP 17; TEMP 36.5; O2SAT 97
[2024-02-04 22:38] VITALS: PULSE 50; PULSE 58; RESP 17; O2SAT 98
--- NOTE | 2024-02-04 22:39 | PC.NURSE ---
patient arrived to floor via wheelchair @22:16
--- NOTE | 2024-02-04 22:57 | P.HP_ITS ---
<Statement entered by Koffi Cook MD - 02/07/24 15:20> Personally examined the patient and agree with the plan of care outlined by [employer]. History of Present Illness *Admission Date: 02/04/24 *Reason for visit:: Presyncope *History of present illness: This is a 83-year-old female with a past medical history of atrial fibrillation on Xarelto, hypertension, hyperlipidemia who presents to the emergency department today with complaints of near syncope. Patient reports being lightheaded over the last several weeks with some episodes of orthostatic hypotension but states today she was sitting eating and talking during a Halloween libertarian and had a near syncopal episode. States that she just felt like she was not all there . She denies any dysarthria or difficulty moving arms and legs during this episode. States that she has a history of atrial fibrillation and that her heart rate goes up and down from time to time.. States that she is never had any episodes like this this significant in the past. Denies any chest pain or shortness of breath or palpitations prior to the event. Emergency department workup mostly unremarkable except for sinus bradycardia noted on EKG. Mildly elevated TSH of 4.79. Given her symptoms, she is admitted to the hospital service. [facility] Disclaimer: The information contained in this section may have been updated after the patient was seen, as this information can be updated by other users. Medical History COVID-19 Shortness of Breath Diarrhea Arthritis Kidney stones Skin cancer A-fib Arrhythmia GERD (gastroesophageal reflux disease) HTN (hypertension) Osteoporosis HLD (hyperlipidemia) Atherosclerotic cardiovascular disease CAD (coronary artery disease) Surgical History Hx of local excision of skin lesion History of colonoscopy History of cardiac catheterization History of tonsillectomy Family History Other No significant family history Social History Smoking Status: Never smoker alcohol intake: current alcohol intake frequency: a few times a month substance use type: denies use current occupational status: retired Travel in the last 8 weeks: None household members: spouse housing: house 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 caffeine: No Other Medical History Have you received the Flu Vaccine for this season: No Have you received the Pneumonia Vaccine: Yes Review of Systems Review of Systems Review of systems:: other Review of systems (narrative): Negative except for HPI Meds Home Medications and Allergies Home Medications ?Medication ?Instructions ?Recorded ?Confirmed ?Type omeprazole 20 mg tablet,delayed 20 mg PO DAILY Acid Reflux 03/17/20 01/19/24 History release cholecalciferol (vitamin D3) 25 25 mcg PO DAILY Supplement 11/14/20 01/19/24 History mcg (1,000 unit) capsule denosumab 60 mg/mL subcutaneous 60 mg SQ DIRECTED 03/05/23 01/19/24 History syringe (Prolia) rivaroxaban 20 mg tablet (Xarelto) See Rx Instructions .Route 04/15/23 01/19/24 Rx .COMPLEX #90 tabs sotalol 120 mg tablet 60 mg (1/2 x 120 mg) PO BID #90 04/16/23 01/19/24 Rx tabs atorvastatin 40 mg tablet See Rx Instructions .Route 07/27/23 01/19/24 Rx .COMPLEX #90 tabs New Prescriptions to Start Prescriptions: Allergies Allergy/AdvReac Type Severity Reaction Status Date / Time amoxicillin Allergy Severe Unknown Verified 01/19/24 09:54 allergy reaction metronidazole [From Flagyl] Allergy Severe Unknown Verified 01/19/24 09:54 allergy reaction protectives, O.U. Allergy Severe Unknown Verified 01/19/24 09:54 [From Sensi-Care (foam)] allergy reaction Penicillins Allergy Intermediate EDEMA Verified 01/19/24 09:54 apixaban [From Eliquis] Allergy Mild Rash Verified 01/19/24 09:54 Sulfa (Sulfonamide Allergy Unknown Unknown Verified 01/19/24 09:54 Antibiotics) allergy [SULFA (SULFONAMIDE reaction ANTIBIOTICS)] adhesive tape Allergy Unknown Verified 01/19/24 09:54 allergy reaction amiodarone AdvReac Mild GI UPSET Verified 01/19/24 09:54 acetaminophen AdvReac Nausea Verified 01/19/24 09:54 Exam Data for Last 24 hours Vital signs and Labs for Last 24 Hours: Temp Pulse Resp BP Pulse Ox O2 Del Method 97.7 F 58 L 17 132/51 L 99 Room Air 02/04/24 22:12 02/04/24 22:12 02/04/24 22:12 02/04/24 22:12 02/04/24 19:30 02/04/24 22:12 Laboratory Results - last 24 hr 02/04/24 19:40: WBC 8.3, RBC 4.56, Hgb 14.2, Hct 43.4, MCV 95.0, MCH 31.2, MCHC 32.9, RDW 14.0, Plt Count 543 H, MPV 9.1, Neut % (Auto) 56.3, Lymph % (Auto) 33.3, [place] % (Auto) 5.5, Eos % (Auto) 4.1, Baso % (Auto) 0.8, Neut # (Auto) 4.7, Lymph # (Auto) 2.8, [place] # (Auto) 0.5, Eos # (Auto) 0.3, Baso # (Auto) 0.1, Sodium 141, Potassium 4.2, Chloride 104, Carbon Dioxide 31 H, Anion Gap 10.2, BUN 17, Creatinine 0.90, Estimated Creat Clear 48, Estimated GFR 60, Est GFR ( Amer) 73, Glucose 110 H, Calcium 9.4, Magnesium 1.7, Total Bilirubin 0.6, AST 39 H, ALT 30, Alkaline Phosphatase 37 L, Troponin I < 0.01, Total Protein 6.9, Albumin 4.3, Globulin 2.6, Albumin/Globulin Ratio 1.7, TSH 4.79 H, HIV 1&2 Antibody Rapid Nonreactive 02/04/24 20:51: Urine Color Yellow, Urine Appearance Clear, Urine pH 6.0, Ur Specific [place] 1.015, Urine Protein Negative, Urine Glucose (UA) Negative, Urine Ketones Negative, Urine Blood Negative, Urine Nitrate Negative, Urine Bilirubin Negative, Urine Urobilinogen 0.2, Ur Leukocyte Esterase 1+ A, Urine RBC 5-10, Urine WBC 10-20, Ur Squamous Epith Cells 10-20, Urine Bacteria Trace I & O for Last 24 hours: Intake & Output 02/01/24 02/02/24 02/03/24 02/04/24 23:59 23:59 23:59 23:59 Weight 68.353 kg Constitutional Constitutional: no acute distress *Routine HEENT Exam Head: Present normocephalic Eye: Present EOMI and PERRL ENT: Present mucous membranes moist *Routine Neck Exam Neck: Present supple; Absent lymphadenopathy *Routine Respiratory Exam Respiratory: Present CTA bilaterally *Routine Cardiovascular Exam Cardiovascular: Present Normal S1, Normal S2 and bradycardia *Routine Abdominal Exam Abdominal: Present soft and normoactive bowel sounds; Absent tenderness *Routine Rectal Exam Rectal:: deferred *Routine Genitalia Exam Genitalia:: deferred *Routine Extremities Exam Extremities: Absent cyanosis, clubbing or edema *Routine Skin Exam Skin: Present warm; Absent rash *Routine Neurological Exam Neurological: Present alert and oriented X3 Assessment and Plan *Assessment and plan (1) Pre-syncope: Status: Acute Category: Medical Code(s): R55 - Syncope and collapse (2) Bradycardia: Status: Acute Category: Medical Code(s): R00.1 - Bradycardia, unspecified (3) Atrial fibrillation: Status: Resolved Qualifiers: Atrial fibrillation type: paroxysmal Qualified Code(s): I48.0 - Paroxysmal atrial fibrillation Category: Medical Code(s): I48.91 - Unspecified atrial fibrillation (4) HLD (hyperlipidemia): Status: Chronic Qualifiers: Hyperlipidemia type: mixed hyperlipidemia Qualified Code(s): E78.2 - Mixed hyperlipidemia Category: Medical Code(s): E78.5 - Hyperlipidemia, unspecified (5) Hypertension: Status: Acute Qualifiers: Hypertension type: primary hypertension Qualified Code(s): I10 - Essential (primary) hypertension Category: Medical Code(s): I10 - Essential (primary) hypertension Plan #Presyncope #Bradycardia Bradycardic rhythm with heart rate in the low 50s. Could be precipitating factor to syncope Continue on cardiac telemetry Cardiology consult in a.m. Hold sotalol at this time #Atrial fibrillation Continue home Xarelto Hold beta-jennie #Hypertension Holding sotalol at this time, does not appear to be on any other medications for hypertension #HLD Continue statin
[2024-02-04 23:49] LABS: Troponin I < 0.01 ng/ml (0.00-0.034)
[2024-02-05 00:18] VITALS: BP 132/51; PULSE 60; RESP 14; TEMP 36.7; O2SAT 97; BMI 25.9
[2024-02-05 02:23] LABS: Troponin I < 0.01 ng/ml (0.00-0.034)
--- NOTE | 2024-02-05 03:30 | PC.NURSE ---
Mrs Hazel Manning was newly admitted this shift on behalf of near syncope. She stated to me that she started feeling faint suddenly while sitting in a chair and talking with her family at a gathering yesterday. She has a history of osteoporosis, a heart cath, basal cell carcinoma (on face and neck), afib on Xarelto, etc. (see list), and has been running bradycardic on telemetry during her stay so far. She has not had any further complaints of syncope, lightheadedness, nor dizziness this shift. She has also not had any complaints of pain or nausea/vomiting. She was able to ambulate independently and with supervision quite well in her room, as well as to the bathroom to wash her face last night. She was observed to have eyes closed, respirations even and unlabored on room air, and no apparent distress throughout the night. Upon auscultation, her lungs were clear, an irregular heart rate could be heard, and bowel sounds were active. She was given ice water to drink at bedtime. Her medication reconciliation was completed during admission this shift and her home medications are locked in her room drawer. At this time, she is laying on her left side in bed. No acute changes noted thus far. Call light within reach. Cardiology is expected to follow-up with her.
[2024-02-05 04:00] VITALS: BP 139/56; PULSE 53; PULSE 60; RESP 16; TEMP 36.6; O2SAT 96; BMI 26.0
[2024-02-05 07:40] LABS: Basophils # 0.1 K/mm3 (0-0.2); Basophils % 0.7 % (0.1-2.0); Eosinophils # 0.3 K/mm3 (0.0-0.4); Eosinophils % 3.8 % (0.1-12.0); Hematocrit 40.7 % (37.0-47.0); Hemoglobin 13.2 g/dL (12.2-16.2); Lymphocytes # 2.2 K/mm3 (0.7-4.5); Lymphocytes % 31.9 % (10-50); Mean Corpuscular HGB Conc 32.4 g/dL (31.8-35.4); Mean Corpuscular Hemoglobin 30.9 pg (27.0-31.2); Mean Corpuscular Volume 95.4 fl (81-99); Mean Platelet Volume 9.2 fl (7.4-10.4); Monocytes # 0.4 K/mm3 (0.1-1.0); Monocytes % 5.8 % (1.7-9.3); Neutrophils # 3.9 K/mm3 (1.8-7.8); Neutrophils % 57.7 % (37.0-80.0); Platelet Count 475 K/mm3 (142-424); Red Blood Count 4.27 M/mm3 (4.20-5.40); Red Cell Distribution Width 13.9 % (11.5-17.5); White Blood Count 6.8 K/mm3 (4.8-10.8)
--- NOTE | 2024-02-05 07:40 | HMH.PHAINT1 ---
Pharmacy Intervention Comments: Home medication list verified using list from outpatient pharmacy
[2024-02-05 07:53] LABS: Blood Urea Nitrogen 15 mg/dl (7-17); Carbon Dioxide 28 mmol/L (22.0-30.0); Creatinine Clearance Estimated 49 mL/min (50-200); Estimated Glomerular Filt Rate 69 ml/min (>60); GFR (African American) 83 ML/MIN (>60); Magnesium 1.7 mg/dl (1.6-2.3); Potassium 4.1 mmoL/L (3.5-5.1)
[2024-02-05 07:54] LABS: Anion Gap 9.1 mEq/L (5-15); Calcium 8.9 mg/dl (8.4-10.2); Chloride 108 mmol/L (98-107); Glucose 95 mg/dl (74-100); Phosphorous 3.7 mg/dl (2.5-4.5); Sodium 141 mmol/L (136-145)
[2024-02-05 08:00] VITALS: BP 151/56; PULSE 50; PULSE 54; RESP 16; TEMP 36.7; O2SAT 99
[2024-02-05 08:29] LABS: Free T4 (Free Thyroxine) 1.07 ng/dl (0.78-2.19)
[2024-02-05] MEDS: LEVOFLOXACIN/D5W 750 MG/150 ML 750 MG/150 ML PIGGYBACK 100 MG IV (10:53)
[2024-02-05 12:00] VITALS: BP 139/68; PULSE 57; PULSE 60; RESP 16; TEMP 37.2; O2SAT 99
[2024-02-05 12:36] LABS: Adenovirus,PCR Not Detected (NotDetected); Bordetella Pertussis Not Detected (NotDetected); Chlamydophila Pneumoniae, PCR Not Detected (NotDetected); Coronavirus 19, PCR Not Detected (NotDetected); Coronavirus 229E Not Detected (NotDetected); Coronavirus NL63 Not Detected (NotDetected); Coronavirus OC43 Not Detected (NotDetected); Coronovirus HKU1,PCR Not Detected (NotDetected); Human Metapneumovirus Not Detected (NotDetected); Influenza A, PCR Not Detected (NotDetected); Influenza AH1, 2009 Not Detected (NotDetected); Influenza AH1, PCR Not Detected (NotDetected); Influenza AH3,PCR Not Detected (NotDetected); Influenza B, PCR Not Detected (NotDetected); Mycoplasma Pneumoniae, PCR Not Detected (NotDetected); Parainfluenza 1, PCR Not Detected (NotDetected); Parainfluenza 2, PCR Not Detected (NotDetected); Parainfluenza 3, PCR Not Detected (NotDetected); Parainfluenza 4, PCR Not Detected (NotDetected); Respiratory Syncytial Virus Not Detected (NotDetected); Rhinovirus/Enterovirus Not Detected (NotDetected)
--- NOTE | 2024-02-05 13:27 | EXP.CARD.CON ---
History of Present Illness History of Present Illness Consult date: 02/05/24 Requesting physician: Koffi Cook Chief complaint: near syncope History of present illness: 83-year-old established patient of our office with history of known atrial fibrillation. She was admitted earlier this year with a COVID admission followed by significant GI issues for several months. She has been stable regarding A-fib on sotalol and Xarelto. Patient presented to the emergency room yesterday stating she had near syncopal episode while seated at a Halloween green party. She had no chest pain shortness of breath or palpitations at that time. Workup here has revealed she is positive for UTI. She was sinus bradycardia in the low 50s in the emergency room and they held her sotalol. QTc is less than 400. This morning she states she is feeling much improved. [facility] Disclaimer: The information contained in this section may have been updated after the patient was seen, as this information can be updated by other users. Medical History COVID-19 Shortness of Breath Diarrhea Arthritis Kidney stones Skin cancer A-fib Arrhythmia GERD (gastroesophageal reflux disease) HTN (hypertension) Osteoporosis HLD (hyperlipidemia) Atherosclerotic cardiovascular disease CAD (coronary artery disease) Surgical History Hx of local excision of skin lesion History of cardiac catheterization History of tonsillectomy Family History Mother Cancer Father Cancer Other No significant family history Social History Smoking Status: Never smoker alcohol intake: never substance use type: denies use current occupational status: retired Travel in the last 8 weeks: None household members: spouse housing: house 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 caffeine: No Review of Systems Constitutional Constitutional: Reports fatigue and Reports weakness Eyes Eyes: Denies loss of vision ENT Ears, Nose, Mouth, and Throat: Denies hearing loss and Denies vertigo *Cardiovascular Cardiovascular: Denies chest pain, Denies dyspnea and Denies syncope *Respiratory Respiratory: Denies cough and Denies dyspnea *Gastrointestinal Gastrointestinal: Denies change in stool character, Denies nausea and Denies vomiting *Musculoskeletal Musculoskeletal: Denies muscle weakness Integumentary/Breasts Skin/Breast: Denies changing lesions *Neurologic Neurologic: Denies loss of vision, Denies syncope, Denies vertigo and Reports weakness Endocrine Endocrine: Reports fatigue Exam Data for Last 24 hours Vital signs and Labs for Last 24 Hours: Temp Pulse Resp BP Pulse Ox O2 Del Method 98.9 F 57 L 16 139/68 99 Room Air 02/05/24 12:00 02/05/24 12:00 02/05/24 12:00 02/05/24 12:00 02/05/24 12:00 02/05/24 12:00 Laboratory Results - last 24 hr 02/04/24 19:40: WBC 8.3, RBC 4.56, Hgb 14.2, Hct 43.4, MCV 95.0, MCH 31.2, MCHC 32.9, RDW 14.0, Plt Count 543 H, MPV 9.1, Neut % (Auto) 56.3, Lymph % (Auto) 33.3, [place] % (Auto) 5.5, Eos % (Auto) 4.1, Baso % (Auto) 0.8, Neut # (Auto) 4.7, Lymph # (Auto) 2.8, [place] # (Auto) 0.5, Eos # (Auto) 0.3, Baso # (Auto) 0.1, Sodium 141, Potassium 4.2, Chloride 104, Carbon Dioxide 31 H, Anion Gap 10.2, BUN 17, Creatinine 0.90, Estimated Creat Clear 48, Estimated GFR 60, Est GFR ( Amer) 73, Glucose 110 H, Calcium 9.4, Magnesium 1.7, Total Bilirubin 0.6, AST 39 H, ALT 30, Alkaline Phosphatase 37 L, Troponin I < 0.01, Total Protein 6.9, Albumin 4.3, Globulin 2.6, Albumin/Globulin Ratio 1.7, TSH 4.79 H, HIV 1&2 Antibody Rapid Nonreactive 02/04/24 20:51: Urine Color Yellow, Urine Appearance Clear, Urine pH 6.0, Ur Specific [place] 1.015, Urine Protein Negative, Urine Glucose (UA) Negative, Urine Ketones Negative, Urine Blood Negative, Urine Nitrate Negative, Urine Bilirubin Negative, Urine Urobilinogen 0.2, Ur Leukocyte Esterase 1+ A, Urine RBC 5-10, Urine WBC 10-20, Ur Squamous Epith Cells 10-20, Urine Bacteria Trace 02/04/24 23:09: Troponin I < 0.01 02/05/24 01:30: Troponin I < 0.01 02/05/24 07:07: WBC 6.8, RBC 4.27, Hgb 13.2, Hct 40.7, MCV 95.4, MCH 30.9, MCHC 32.4, RDW 13.9, Plt Count 475 H, MPV 9.2, Neut % (Auto) 57.7, Lymph % (Auto) 31.9, [place] % (Auto) 5.8, Eos % (Auto) 3.8, Baso % (Auto) 0.7, Neut # (Auto) 3.9, Lymph # (Auto) 2.2, [place] # (Auto) 0.4, Eos # (Auto) 0.3, Baso # (Auto) 0.1, Sodium 141, Potassium 4.1, Chloride 108 H, Carbon Dioxide 28, Anion Gap 9.1, BUN 15, Creatinine 0.80, Estimated Creat Clear 49, Estimated GFR 69, Est GFR ( Amer) 83, Glucose 95, Calcium 8.9, Phosphorus 3.7, Magnesium 1.7, Free T4 1.07 I & O for Last 24 hours: Intake & Output 02/02/24 02/03/24 02/04/24 02/05/24 23:59 23:59 23:59 23:59 Intake Total 720 / 720 Output Total 0 / 0 Balance 720 / 720 Weight 150 lb 11.094 oz 156 lb 6 oz Constitutional Constitutional: no acute distress and cooperative *Routine HEENT Exam Eye: Present PERRL *Routine Respiratory Exam Respiratory: Present CTA bilaterally; Absent accessory muscle use, wheezes or crackles *Routine Cardiovascular Exam Cardiovascular: Present RRR, Normal S1 and Normal S2; Absent murmur, gallop or rubs *Routine Abdominal Exam Abdominal: Present soft; Absent tenderness *Routine Extremities Exam Extremities: Present pulses intact; Absent cyanosis or edema *Routine Skin Exam Skin: Present intact; Absent erythema or wounds *Routine Neurological Exam Neurological: Present alert and oriented X3 Routine Psychiatric Exam Psychiatric: Present cooperative Meds Home Medications and Allergies Home Medications ?Medication ?Instructions ?Recorded ?Confirmed ?Type omeprazole 20 mg tablet,delayed 20 mg PO DAILY 03/17/20 02/04/24 History release cholecalciferol (vitamin D3) 25 25 mcg PO DAILY 11/14/20 02/04/24 History mcg (1,000 unit) capsule sotalol 120 mg tablet 60 mg (1/2 x 120 mg) PO BID #90 04/16/23 02/04/24 Rx tabs atorvastatin 40 mg tablet 40 mg PO HS 02/04/24 02/04/24 History cetirizine 10 mg tablet (Zyrtec) 5 mg PO HS 02/04/24 02/04/24 History rivaroxaban 20 mg tablet (Xarelto) 20 mg PO QPMWITHMEAL 02/04/24 02/05/24 History New Prescriptions to Start Prescriptions: Allergies Allergy/AdvReac Type Severity Reaction Status Date / Time amoxicillin Allergy Severe Unknown Verified 01/19/24 09:54 allergy reaction metronidazole [From Flagyl] Allergy Severe Unknown Verified 01/19/24 09:54 allergy reaction protectives, O.U. Allergy Severe Unknown Verified 01/19/24 09:54 [From Sensi-Care (foam)] allergy reaction Penicillins Allergy Intermediate EDEMA Verified 01/19/24 09:54 apixaban [From Eliquis] Allergy Mild Rash Verified 01/19/24 09:54 Sulfa (Sulfonamide Allergy Unknown Unknown Verified 01/19/24 09:54 Antibiotics) allergy [SULFA (SULFONAMIDE reaction ANTIBIOTICS)] adhesive tape Allergy Unknown Verified 01/19/24 09:54 allergy reaction amiodarone AdvReac Mild GI UPSET Verified 01/19/24 09:54 acetaminophen AdvReac Nausea Verified 01/19/24 09:54 Assessment and Plan *Assessment and plan (1) Bradycardia: Status: Acute Category: Medical Code(s): R00.1 - Bradycardia, unspecified (2) Weakness: Status: Acute Category: Medical Code(s): R53.1 - Weakness (3) Pre-syncope: Status: Acute Category: Medical Code(s): R55 - Syncope and collapse (4) Paroxysmal A-fib: Status: Acute Category: Medical Code(s): I48.0 - Paroxysmal atrial fibrillation (5) Urinary tract infection: Status: Acute Category: Medical Code(s): N39.0 - Urinary tract infection, site not specified Plan Near Syncope - likely secondary to UTI - no concerning bradyarrhythmias - Othostatics pending PAF - SR here - recommend she continue Sotalol and Xarelto *Pending orthostatic vital signs pt is acceptable to DC home with a 2 week monitor to evaluate for any further bradyarrhythmia. She needs to remain on her Xarelto and sotalol. We can see her in the office within 1 week and can consider further testing if needed. Patient should return to the emergency room with any return of her symptoms.
[2024-02-05 14:27] VITALS: BP 136/62; BP 151/68; BP 151/71; PULSE 60; PULSE 61; PULSE 63
[2024-02-05] MEDS: 0.9 % SODIUM CHLORIDE 1000ML 1,000 ML 500 ML IV (14:53)
[2024-02-05] MEDS: SOTALOL 120 MG 60 EACH PO (15:18)
--- NOTE | 2024-02-05 15:38 | EXP.DC.SUM ---
General Admission date:: 02/04/24 HPI HPI HPI: This is a 83-year-old female with a past medical history of atrial fibrillation on Xarelto, hypertension, hyperlipidemia who presents to the emergency department today with complaints of near syncope. Patient reports being lightheaded over the last several weeks with some episodes of orthostatic hypotension but states today she was sitting eating and talking during a Halloween green party and had a near syncopal episode. States that she just felt like she was not all there . She denies any dysarthria or difficulty moving arms and legs during this episode. States that she has a history of atrial fibrillation and that her heart rate goes up and down from time to time.. States that she is never had any episodes like this this significant in the past. Denies any chest pain or shortness of breath or palpitations prior to the event. Emergency department workup mostly unremarkable except for sinus bradycardia noted on EKG. Mildly elevated TSH of 4.79. Given her symptoms, she is admitted to the hospital service. Hospital Course Hospital Course Hospital Course: #Presyncope, lightheadedness #Bradycardia #UTI Sinus bradycardia with heart rate in the low 50s. No bradyarrthmias on telemetry. However, UA highly suggestive of UTI. Started on ceftriaxone and symptoms improved. Orthostatics normal. Cardiology consulted, did not think sinus bradycardia was contributing to symptoms. Discharges with Levaquin for a total of 5 days, and event monitor for 2 weeks. #Atrial fibrillation Rate controlled Continue home Xarelto, Sotalol #HLD Continue statin Exam Data for Last 24 hours Vital signs and Labs for Last 24 Hours: Temp Pulse Resp BP Pulse Ox O2 Del Method 98.9 F 63 16 151/68 H 99 Room Air 02/05/24 12:00 02/05/24 14:27 02/05/24 12:00 02/05/24 14:27 02/05/24 12:00 02/05/24 12:00 Laboratory Results - last 24 hr 02/04/24 19:40: WBC 8.3, RBC 4.56, Hgb 14.2, Hct 43.4, MCV 95.0, MCH 31.2, MCHC 32.9, RDW 14.0, Plt Count 543 H, MPV 9.1, Neut % (Auto) 56.3, Lymph % (Auto) 33.3, [place] % (Auto) 5.5, Eos % (Auto) 4.1, Baso % (Auto) 0.8, Neut # (Auto) 4.7, Lymph # (Auto) 2.8, [place] # (Auto) 0.5, Eos # (Auto) 0.3, Baso # (Auto) 0.1, Sodium 141, Potassium 4.2, Chloride 104, Carbon Dioxide 31 H, Anion Gap 10.2, BUN 17, Creatinine 0.90, Estimated Creat Clear 48, Estimated GFR 60, Est GFR ( Amer) 73, Glucose 110 H, Calcium 9.4, Magnesium 1.7, Total Bilirubin 0.6, AST 39 H, ALT 30, Alkaline Phosphatase 37 L, Troponin I < 0.01, Total Protein 6.9, Albumin 4.3, Globulin 2.6, Albumin/Globulin Ratio 1.7, TSH 4.79 H, HIV 1&2 Antibody Rapid Nonreactive 02/04/24 20:51: Urine Color Yellow, Urine Appearance Clear, Urine pH 6.0, Ur Specific [place] 1.015, Urine Protein Negative, Urine Glucose (UA) Negative, Urine Ketones Negative, Urine Blood Negative, Urine Nitrate Negative, Urine Bilirubin Negative, Urine Urobilinogen 0.2, Ur Leukocyte Esterase 1+ A, Urine RBC 5-10, Urine WBC 10-20, Ur Squamous Epith Cells 10-20, Urine Bacteria Trace 02/04/24 23:09: Troponin I < 0.01 02/05/24 01:30: Troponin I < 0.01 02/05/24 07:07: WBC 6.8, RBC 4.27, Hgb 13.2, Hct 40.7, MCV 95.4, MCH 30.9, MCHC 32.4, RDW 13.9, Plt Count 475 H, MPV 9.2, Neut % (Auto) 57.7, Lymph % (Auto) 31.9, [place] % (Auto) 5.8, Eos % (Auto) 3.8, Baso % (Auto) 0.7, Neut # (Auto) 3.9, Lymph # (Auto) 2.2, [place] # (Auto) 0.4, Eos # (Auto) 0.3, Baso # (Auto) 0.1, Sodium 141, Potassium 4.1, Chloride 108 H, Carbon Dioxide 28, Anion Gap 9.1, BUN 15, Creatinine 0.80, Estimated Creat Clear 49, Estimated GFR 69, Est GFR ( Amer) 83, Glucose 95, Calcium 8.9, Phosphorus 3.7, Magnesium 1.7, Free T4 1.07 I & O for Last 24 hours: Intake & Output 02/02/24 02/03/24 02/04/24 02/05/24 23:59 23:59 23:59 23:59 Intake Total 820 / 820 Output Total 0 / 0 Balance 820 / 820 Weight 68.353 kg 70.931 kg Constitutional Constitutional: no acute distress *Routine HEENT Exam Head: Present normocephalic Eye: Present EOMI and PERRL ENT: Present mucous membranes moist *Routine Neck Exam Neck: Present supple; Absent lymphadenopathy *Routine Respiratory Exam Respiratory: Present CTA bilaterally *Routine Cardiovascular Exam Cardiovascular: Present RRR *Routine Abdominal Exam Abdominal: Present soft and normoactive bowel sounds; Absent tenderness *Routine Extremities Exam Extremities: Absent cyanosis, clubbing or edema *Routine Skin Exam Skin: Present warm; Absent rash *Routine Neurological Exam Neurological: Present alert and oriented X3 Results Data Completed and Pending Labs on day of discharge: Labs from last 24 hours 02/05/24 02/05/24 02/04/24 07:07 01:30 23:09 WBC 6.8 RBC 4.27 Hgb 13.2 Hct 40.7 MCV 95.4 MCH 30.9 MCHC 32.4 RDW 13.9 Plt Count 475 H MPV 9.2 Neut % (Auto) 57.7 Lymph % (Auto) 31.9 [place] % (Auto) 5.8 Eos % (Auto) 3.8 Baso % (Auto) 0.7 Neut # (Auto) 3.9 Lymph # (Auto) 2.2 [place] # (Auto) 0.4 Eos # (Auto) 0.3 Baso # (Auto) 0.1 Sodium 141 Potassium 4.1 Chloride 108 H Carbon Dioxide 28 Anion Gap 9.1 BUN 15 Creatinine 0.80 Estimated Creat Clear 49 Estimated GFR 69 Est GFR ( Amer) 83 Glucose 95 Calcium 8.9 Phosphorus 3.7 Magnesium 1.7 Total Bilirubin AST ALT Alkaline Phosphatase Troponin I < 0.01 < 0.01 Total Protein Albumin Globulin Albumin/Globulin Ratio TSH Free T4 1.07 Urine Color Urine Appearance Urine pH Ur Specific [place] Urine Protein Urine Glucose (UA) Urine Ketones Urine Blood Urine Nitrate Urine Bilirubin Urine Urobilinogen Ur Leukocyte Esterase Urine RBC Urine WBC Ur Squamous Epith Cells Urine Bacteria HIV 1&2 Antibody Rapid 02/04/24 02/04/24 20:51 19:40 WBC 8.3 RBC 4.56 Hgb 14.2 Hct 43.4 MCV 95.0 MCH 31.2 MCHC 32.9 RDW 14.0 Plt Count 543 H MPV 9.1 Neut % (Auto) 56.3 Lymph % (Auto) 33.3 [place] % (Auto) 5.5 Eos % (Auto) 4.1 Baso % (Auto) 0.8 Neut # (Auto) 4.7 Lymph # (Auto) 2.8 [place] # (Auto) 0.5 Eos # (Auto) 0.3 Baso # (Auto) 0.1 Sodium 141 Potassium 4.2 Chloride 104 Carbon Dioxide 31 H Anion Gap 10.2 BUN 17 Creatinine 0.90 Estimated Creat Clear 48 Estimated GFR 60 Est GFR ( Amer) 73 Glucose 110 H Calcium 9.4 Phosphorus Magnesium 1.7 Total Bilirubin 0.6 AST 39 H ALT 30 Alkaline Phosphatase 37 L Troponin I < 0.01 Total Protein 6.9 Albumin 4.3 Globulin 2.6 Albumin/Globulin Ratio 1.7 TSH 4.79 H Free T4 Urine Color Yellow Urine Appearance Clear Urine pH 6.0 Ur Specific [place] 1.015 Urine Protein Negative Urine Glucose (UA) Negative Urine Ketones Negative Urine Blood Negative Urine Nitrate Negative Urine Bilirubin Negative Urine Urobilinogen 0.2 Ur Leukocyte Esterase 1+ A Urine RBC 5-10 Urine WBC 10-20 Ur Squamous Epith Cells 10-20 Urine Bacteria Trace HIV 1&2 Antibody Rapid Nonreactive DS: Diagnosis Discharge Diagnosis (1) Bradycardia: Status: Acute Code(s): R00.1 - Bradycardia, unspecified (2) Weakness: Status: Acute Code(s): R53.1 - Weakness (3) Pre-syncope: Status: Acute Code(s): R55 - Syncope and collapse (4) Paroxysmal A-fib: Status: Acute Code(s): I48.0 - Paroxysmal atrial fibrillation (5) Urinary tract infection: Status: Acute Code(s): N39.0 - Urinary tract infection, site not specified Meds Home Medications and Allergies Home Medications ?Medication ?Instructions ?Recorded ?Confirmed ?Type omeprazole 20 mg tablet,delayed 20 mg PO DAILY 03/17/20 02/11/24 History release cholecalciferol (vitamin D3) 25 25 mcg PO DAILY 11/14/20 02/11/24 History mcg (1,000 unit) capsule sotalol 120 mg tablet 60 mg (1/2 x 120 mg) PO BID #90 04/16/23 02/11/24 Rx tabs atorvastatin 40 mg tablet 40 mg PO HS 02/04/24 02/11/24 History cetirizine 10 mg tablet (Zyrtec) 5 mg PO HS 02/04/24 02/11/24 History rivaroxaban 20 mg tablet (Xarelto) 20 mg PO QPMWITHMEAL 02/04/24 02/11/24 History New Prescriptions to Start Prescriptions: Allergies Allergy/AdvReac Type Severity Reaction Status Date / Time amoxicillin Allergy Severe Unknown Verified 02/11/24 13:22 allergy reaction metronidazole [From Flagyl] Allergy Severe Unknown Verified 02/11/24 13:22 allergy reaction protectives, O.U. Allergy Severe Unknown Verified 02/11/24 13:22 [From Sensi-Care (foam)] allergy reaction Penicillins Allergy Intermediate EDEMA Verified 02/11/24 13:22 apixaban [From Eliquis] Allergy Mild Rash Verified 02/11/24 13:22 Sulfa (Sulfonamide Allergy Unknown Unknown Verified 02/11/24 13:22 Antibiotics) allergy [SULFA (SULFONAMIDE reaction ANTIBIOTICS)] adhesive tape Allergy Unknown Verified 02/11/24 13:22 allergy reaction amiodarone AdvReac Mild GI UPSET Verified 02/11/24 13:22 acetaminophen AdvReac Nausea Verified 02/11/24 13:22 Discharge Plan Disposition Patient Disposition: Home, Self-Care Condition: Good Follow up Plan Follow up with: Vaughn Lyle PA [Physician Analytical Strategist] - 02/11/24 1:30 pm Allen Love MD [Primary Care Provider] - 02/09/24 11:30 am Prescriptions/Medication Reconciliation: Continued cholecalciferol (vitamin D3) 25 mcg (1,000 unit) capsule 25 mcg PO DAILY sotalol 120 mg tablet 60 mg PO BID Qty: 90 3RF omeprazole 20 MG tablet,delayed release (DR/EC) 20 mg PO DAILY atorvastatin 40 mg tablet 40 mg PO HS Rx Instructions: TAKE 1 TABLET BY MOUTH AT BEDTIME NIGHTLY FOR CHOLESTEROL Xarelto 20 mg tablet 20 mg PO QPMWITHMEAL Rx Instructions: TAKE 1 TABLET BY MOUTH ONCE DAILY WITH EVENING MEAL FOR BLOOD THINNER cetirizine [Zyrtec] 10 mg Tablet 5 mg PO HS Rx Instructions: Takes a half dose (5 mg) at bedtime Problem Reconciliation Problems Reviewed?: Yes Patient Discharge Instructions Patient Instructions: DI for Syncope in Adults (Fainting), DI for Orthostatic Hypotension Print Language: Citizen Of [place] Providers Primary Care Provider: Allen Love Admit Provider: Koffi Cook Attending Provider: Koffi Cook
[2024-02-05 16:00] VITALS: PULSE 60; TEMP 36.6; O2SAT 99
[2024-02-06 05:11] LABS: HCV Ab Non Reactive (Non Reactive)
--- NOTE | 2024-02-08 14:14 | CARE MANAGER ---
Contacted patient related to hospital discharge. She states she just doesn't feel well and thinks it's the antibiotics. She has had this happen previously with different antibiotics, but she has a follow up appointment with Dr. Love tomorrow and is going to discuss it with him then. She is aware of cardiology appointment as well. Denies any other questions or concerns. ANGEL Mackay
== END 2024-02-05 16:52 | disposition home or self-care (01) ==
LOC: ER 21:48 → 2ND 22:31
PROVIDERS: Nurse Practitioner Acute Care; Admitting Provider Student in an Organized Health Care Education/Training Program; Emergency Provider Emergency Medicine; PCP Internal Medicine Adolescent Medicine; Visit Provider Student in an Organized Health Care Education/Training Program
DX: R55 Syncope and collapse (principal); R00.1 Bradycardia, unspecified; I48.0 Paroxysmal atrial fibrillation; E78.2 Mixed hyperlipidemia; I10 Essential (primary) hypertension; R53.1 Weakness; N39.0 Urinary tract infection, site not specified; Z79.01 Long term (current) use of anticoagulants; Z79.899 Other long term (current) drug therapy; Z86.16 Personal history of COVID-19; I25.10 Atherosclerotic heart disease of native coronary artery without angina pectoris; R94.6 Abnormal results of thyroid function studies
CPT/HCPCS: 36415; 80048; 80053; 81001; 83735; 84100; 84439; 84443; 84484; 85025; 86803; 87086; 87265; 87389; 87486; 87581; 87632; 87635; 93005; 99285; G0378; J1956; J7030

== ENCOUNTER 2024-02-11 12:42 | Outpatient (CLI) | payer MEDICARE, OTHER, SELFPAY ==
[2024-02-11 12:48] LABS: Microscopic, Urine URINE MICROSCOPIC (MICROSCOPIC)
[2024-02-11 13:04] LABS: Appearance,Urine CLEAR (Clear); Bilirubin,Urine Negative (Negative); Blood, Urine Negative (Negative); Color,Urine YELLOW (Yellow); Glucose,Urine (UA) Negative (Negative); Ketones,Urine Negative (Negative); Leukocyte Esterase,Urine Negative (Negative); Nitrate,Urine Negative (Negative); Protein,Urine Negative (Negative); Urobilinogen,Urine 0.2 EU/dl (0.2)
[2024-02-11 13:16] LABS: Bacteria,Urine Trace /lpf; Squamous Epithelial Cell,Urine Occasional #/hpf (0-5); WBC,Urine Occasional #/hpf (0-3)
== END 2024-02-11 23:59 | disposition home or self-care (01) ==
PROVIDERS: PCP Internal Medicine Adolescent Medicine; Visit Provider Nurse Practitioner Family
DX: R82.90 Unspecified abnormal findings in urine (principal); R00.1 Bradycardia, unspecified; R55 Syncope and collapse
CPT/HCPCS: 81001; 87086; 93270

== ENCOUNTER 2024-04-14 13:48 | Emergency (ER) | payer MEDICARE, OTHER, SELFPAY ==
[2024-04-14] VITALS (8 sets, daily range): BP systolic 123–143; BP diastolic 55–65; PULSE 49–55; RESP 11–18; TEMP 36.9; O2SAT 95–99; BMI 25.0
--- NOTE | 2024-04-14 13:54 | ED_ITS ---
<Statement entered by Sara Ceballos MD - 04/14/24 17:26> I was consulted by the ALTHEA, and we discussed the complexity of problems being addressed. I approved the treatment and management plan for this patient's care in the emergency department, thus performing a substantive portion of the medical decision making. Sara Ceballos MD Discharge Plan Disposition Patient Disposition: Home, Self-Care Condition: Good Prescriptions Prescriptions: No Action cholecalciferol (vitamin D3) 25 mcg (1,000 unit) capsule 25 mcg PO DAILY sotalol 120 mg tablet 60 mg PO BID Qty: 90 3RF omeprazole 20 MG tablet,delayed release (DR/EC) 20 mg PO DAILY atorvastatin 40 mg tablet 40 mg PO HS Rx Instructions: TAKE 1 TABLET BY MOUTH AT BEDTIME NIGHTLY FOR CHOLESTEROL Xarelto 20 mg tablet 20 mg PO QPMWITHMEAL Rx Instructions: TAKE 1 TABLET BY MOUTH ONCE DAILY WITH EVENING MEAL FOR BLOOD THINNER cetirizine [Zyrtec] 10 mg Tablet 5 mg PO HS Rx Instructions: Takes a half dose (5 mg) at bedtime Referrals Follow up/Referrals: Allen Love MD [Primary Care Provider] - See instructions Activity Restrictions/Add. Instructions Additional Instructions/Restrictions: As we discussed please follow-up with cardiology on Thursday morning in their clinic. If you have any events or symptoms return to the emergency department. Cardiology clinic is also open tomorrow and they stated they will be happy to see you as well. Clinical Impressions Clinical Impression: Atrial fibrillation with rapid ventricular response, Bradycardia, sinus, Elevated brain natriuretic peptide (BNP) level Print Language Print Language: Egyptian Discharge ED Provider: Sara Ceballos HPI General Chief Complaint: Dizziness Stated Complaint: heart problems Time Seen by Provider: 04/14/24 13:51 History of Present Illness HPI narrative: Patient presents from cardiology clinic for A-fib RVR and then bradycardia. Patient gives a 2-week history of increasing episodes of nocturnal A-fib RVR. Usually wakes her up at night. She typically does not come to the hospital when she has these episodes as they do not last very long however today's episode lasted much longer and made her feel much worse. Patient initially started at her PCP who found her still to be in A-fib RVR and thus was sent to the cardiology clinic. On arrival to the cardiology clinic patient had a near syncopal event but did not pass out. She did not fall but slumped to the ground because she felt almost too weak to stand. Cardiology clinic noted A-fib RVR but then also sinus bradycardia. Patient is maintained on sotalol and Xarelto. Cardiology clinic tried to direct admit her but was unable to reach the hospitalist and she was sent to the ER for evaluation. Patient currently denies shortness of breath fever chills hemoptysis hematochezia melena nausea vomiting diarrhea. Related Data Home Medications ?Medication ?Instructions ?Recorded ?Confirmed omeprazole 20 mg tablet,delayed 20 mg PO DAILY 03/17/20 04/14/24 release cholecalciferol (vitamin D3) 25 25 mcg PO DAILY 11/14/20 04/14/24 mcg (1,000 unit) capsule atorvastatin 40 mg tablet 40 mg PO HS 02/04/24 04/14/24 cetirizine 10 mg tablet (Zyrtec) 5 mg PO HS 02/04/24 04/14/24 rivaroxaban 20 mg tablet (Xarelto) 20 mg PO QPMWITHMEAL 02/04/24 04/14/24 Previous Rx's ?Medication ?Instructions ?Recorded sotalol 120 mg tablet 60 mg (1/2 x 120 mg) PO BID #90 04/16/23 tabs Allergies Allergy/AdvReac Type Severity Reaction Status Date / Time amoxicillin Allergy Severe Unknown Verified 04/14/24 13:13 allergy reaction metronidazole (From Flagyl) Allergy Severe Unknown Verified 04/14/24 13:13 allergy reaction protectives, O.U. (From Allergy Severe Unknown Verified 04/14/24 13:13 Sensi-Care (foam)) allergy reaction Penicillins Allergy Intermediate EDEMA Verified 04/14/24 13:13 apixaban (From Eliquis) Allergy Mild Rash Verified 04/14/24 13:13 Sulfa (Sulfonamide Allergy Unknown Unknown Verified 04/14/24 13:13 Antibiotics) (SULFA allergy (SULFONAMIDE ANTIBIOTICS)) reaction adhesive tape Allergy Unknown Verified 04/14/24 13:13 allergy reaction amiodarone AdvReac Mild GI UPSET Verified 04/14/24 13:13 acetaminophen AdvReac Nausea Verified 04/14/24 13:13 [facility] Disclaimer: The information contained in this section may have been updated after the patient was seen, as this information can be updated by other users. Medical History Headache COVID-19 Shortness of Breath Diarrhea Arthritis Kidney stones Skin cancer A-fib Arrhythmia GERD (gastroesophageal reflux disease) HTN (hypertension) Osteoporosis HLD (hyperlipidemia) Atherosclerotic cardiovascular disease CAD (coronary artery disease) Surgical History Hx of local excision of skin lesion Basal carcinoma on neck and face History of cardiac catheterization History of tonsillectomy Family History Mother Cancer Father Cancer Other No significant family history Social History Smoking Status: Current every day smoker alcohol intake: never substance use type: denies use current occupational status: retired Travel in the last 8 weeks: None household members: spouse housing: house 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 caffeine: No Have you lived/traveled outside US in past 30 days?: No Contact w/someone who lives/traveled outside US past 30 days?: No Exposure to someone with infectious disease in past 14 days?: No Do you have a fever (greater than 100.4 F or 38 C)?: No Have you tested positive for COVID-19: No Exposed to someone with COVID-19 in past 14 days?: No Do you have a sore throat?: No Do you have a cough?: No Do you have any weakness?: No Do you have any diarrhea?: No Are you experiencing any unusual bleeding?: No Do you have any muscle aches/pain?: No Do you have any abdominal pain?: No Are you experiencing loss of taste or smell?: No Other Medical History Have you received the Flu Vaccine for this season: No Have you received the Pneumonia Vaccine: Yes ROS Obtained: Yes Systems reviewed as appropriate & no additional complaints except as documented Physical Exam General General appearance: alert and in no apparent distress Respiratory Respiratory exam: Present normal lung sounds bilaterally Cardiovascular Cardiovascular exam: Present regular rate Neurological Exam Neurological exam: Present alert and oriented X3 HEART Score HEART Score HEART Score assessment performed?: Yes History (anamnesis): Slightly suspicious ECG: Non-specific disturbance Age: >65 years Risk factors: 3 or more risk factors Troponin: </= normal limit HEART Score: 5 Critical Care Critical Care Time Critical Care Time: Yes Attestation: On 04/14/24, the high probability of a clinically significant, sudden or life threatening deterioration of the following system: Cardiovascular; required my full and direct attention, intervention and personal management. The time I documented below is in addition to time spent performing reported procedures but includes the following listed in this critical care notation. Total Time Total Critical Care Time: 30 Medical Decision Making Medical Records Medical records reviewed: Yes I reviewed the patient's medical records. Rod Inquiry Pt receiving controlled substance: No Vital Signs Vital Signs: 04/14/24 13:49 Temperature 98.4 F Temperature Source Oral Pulse Rate [Left Radial] 55 L Respiratory Rate 18 Blood Pressure [Right Arm] 137/65 Blood Pressure Mean [Right Arm] 89 02 Sat by Pulse Oximetry 98 Oxygen Delivery Method Room Air Lab Data Lab results reviewed: Yes I reviewed the patient's lab results. Labs: Lab Results 04/14/24 14:00: WBC 8.5, RBC 4.70, Hgb 14.4, Hct 44.4, MCV 94.5, MCH 30.6, MCHC 32.4, RDW 13.7, Plt Count 584 H, MPV 11.2 H, Neut % (Auto) 68.8, Lymph % (Auto) 21.7, [place] % (Auto) 6.2, Eos % (Auto) 2.6, Baso % (Auto) 0.6, Neut # (Auto) 5.8, Lymph # (Auto) 1.8, [place] # (Auto) 0.5, Eos # (Auto) 0.2, Baso # (Auto) 0.1, PT 12.7 H, INR 1.15 H, Sodium 141, Potassium 4.4, Chloride 103, Carbon Dioxide 30, Anion Gap 12.4, BUN 20 H, Creatinine 0.80, Estimated Creat Clear 48, Estimated GFR 69, Est GFR ( Amer) 83, Glucose 130 H, Calcium 9.7, Magnesium 1.8, Total Bilirubin 0.7, AST 48 H, ALT 38, Alkaline Phosphatase 51, Troponin I < 0.01, NT-Pro-B Natriuret Pep 3170 H, Total Protein 6.9, Albumin 4.3, Globulin 2.6, Albumin/Globulin Ratio 1.7, TSH 2.89, Free T4 Index 2.4 L, Thyroxine (T4) 7.1, T3 Uptake 34, HCV Ab RAUL w/Rflx PCR Qn Negative, HIV Ag/Ab Combo Qual Negative 04/14/24 14:00 04/14/24 14:00 Response Orders (Tests/Meds): ED MEDICATIONS Discontinued Medications Generic Name Dose Route Start Last Admin Trade Name Freq PRN Reason Stop Dose Admin Magnesium Sulfate 2 gm in 50 mls @ 50 mls/hr 04/14/24 15:01 04/14/24 15:28 Magnesium Sulfate 2gm/50ml Premix IV 04/14/24 16:00 50 mls/hr ONCE ONE Administration ORDERS Category Date Time Status CA 2 week event monitor Stat Exams 04/14/24 15:59 Ordered Chest XR 2 view (NOT portable) [XR chest 2V] Stat Exams 04/14/24 14:55 Taken BNP [NT Pro Brain Natriuretic Pep.] Stat Lab 04/14/24 14:00 Completed CBC w/Auto Diff [Complete Blood Count Auto Diff] Stat Lab 04/14/24 14:00 Completed CMP [Comprehensive Metabolic Panel] Stat Lab 04/14/24 14:00 Completed HIV Combo Stat Lab 04/14/24 14:00 Completed Hepatitis C Ab Qual. W/ RFX Stat Lab 04/14/24 14:00 Completed INR [Prothrombin Time INR] Stat Lab 04/14/24 14:00 Completed Magnesium Stat Lab 04/14/24 14:00 Completed Thyroid Panel Stat Lab 04/14/24 14:00 Completed Trop I [Troponin I] Stat Lab 04/14/24 14:00 Completed Troponin I Q3H Lab 04/14/24 17:15 Ordered Troponin I Q3H Lab 04/14/24 20:15 Ordered MDM Narrative Medical Decision Narrative: In summary patient is a 84-year-old female who presents to the emergency department for evaluation of A-fib RVR and bradycardia. Patient is hemodynamically stable but heart rate currently 55 with a blood pressure 137/65 respiratory rate 18 satting at 98% on room air upon arrival, temperature of 98.4. Physical exam reveals a well-nourished well-developed 84-year-old female who currently is in no acute distress. Patient appears to be in sinus bradycardia on the bedside monitor with normal heart sounds normal breath sounds. Differential diagnosis includes tachybradycardia syndrome versus therapeutic misadventure with sotalol versus ACS versus electrolyte abnormality versus CHF exacerbation etc. Initial workup will be conducted with hematologic labs plain film chest x-ray.. Initial interventions include magnesium IV. Initial workup reviewed by me shows that her white count is normal hemoglobin hematocrit are normal patient has a platelet count of 584 but no shift on differential, INR is 1.15, chemistries are significant for a BUN of 20 a glucose of 130 AST of 48 initial troponin is undetectable at 0.01 and the NT proBNP is 3170. Upon repeat evaluation patient remains bradycardic in the 50s. Given this I had an interactive discussion with hospital medicine regarding patient management and he is going to touch base with cardiology. Hospital medicine coming back and they had an interactive discussion regarding patient management as of now we will plan to discharge the patient with an event monitor for 2 weeks duration, patient to follow-up in cardiology clinic on Thursday, and should she have any worsening signs or symptoms return to the ER. Patient is agreeable to plan.
--- NOTE | 2024-04-14 13:56 | PC.NURSE ---
LUAN Mayo at BS for pt eval
--- NOTE | 2024-04-14 13:59 | ECG_ITS ---
APPROVED REPORT Exam: Resting ECG HR:53 bpm ECG Measurements Heart Rate 53 AXES NV 167 P 77 QRSd 84 QRS 62 QT 441 T 91 QTc [address] DEVIATION AND MODERATE T-WAVE ABNORMALITY, CONSIDER LATERAL ISCHEMIA [-0.1+ mV T-WAVE IN I/aVL/V5/V6] ABNORMAL ECG UNCONFIRMED REPORT Electronically signed by : MARLA MULTANI, 04/15/2024 05:41:01
[2024-04-14 14:21] LABS: Albumin Level 4.3 g/dl (3.5-5.0); Chloride 103 mmol/L (98-107); Sodium 141 mmol/L (136-145)
[2024-04-14 14:22] LABS: Potassium 4.4 mmoL/L (3.5-5.1)
[2024-04-14 14:24] LABS: Alanine Aminotransferase 38 U/L (12-78); Albumin/Globulin Ratio 1.7 (1.1-1.8); Anion Gap 12.4 mEq/L (5-15); Aspartate Amino Transferase 48 U/L (14-36); Blood Urea Nitrogen 20 mg/dl (7-17); Carbon Dioxide 30 mmol/L (22.0-30.0); Creatinine Clearance Estimated 48 mL/min (50-200); Estimated Glomerular Filt Rate 69 ml/min (>60); GFR (African American) 83 ML/MIN (>60); Globulin 2.6 g/dL (1.3-3.2); Total Protein,Serum 6.9 g/dl (6.3-8.2)
[2024-04-14 14:25] LABS: Alkaline Phosphatase 51 U/L (38-126); Bilirubin,Total 0.7 mg/dl (0.2-1.3); Calcium 9.7 mg/dl (8.4-10.2); Glucose 130 mg/dl (74-100); Magnesium 1.8 mg/dl (1.6-2.3)
[2024-04-14 14:34] LABS: INR 1.15 (0.9-1.1); NT Pro Brain Natriuretic Pep. 3170 pg/mL (0-450); Prothrombin Time 12.7 seconds (10.1-12.5)
[2024-04-14 14:37] LABS: Troponin I < 0.01 ng/ml (0.00-0.034)
[2024-04-14 14:39] LABS: Basophils # 0.1 K/mm3 (0-0.2); Basophils % 0.6 % (0.1-2.0); Eosinophils # 0.2 K/mm3 (0.0-0.4); Eosinophils % 2.6 % (0.1-12.0); Hematocrit 44.4 % (37.0-47.0); Hemoglobin 14.4 g/dL (12.2-16.2); Lymphocytes # 1.8 K/mm3 (0.7-4.5); Lymphocytes % 21.7 % (10-50); Mean Corpuscular HGB Conc 32.4 g/dL (31.8-35.4); Mean Corpuscular Hemoglobin 30.6 pg (27.0-31.2); Mean Corpuscular Volume 94.5 fl (81-99); Mean Platelet Volume 11.2 fl (7.4-10.4); Monocytes # 0.5 K/mm3 (0.1-1.0); Monocytes % 6.2 % (1.7-9.3); Neutrophils # 5.8 K/mm3 (1.8-7.8); Neutrophils % 68.8 % (37.0-80.0); Platelet Count 584 K/mm3 (142-424); Red Cell Distribution Width 13.7 % (11.5-17.5); White Blood Count 8.5 K/mm3 (4.8-10.8)
--- NOTE | 2024-04-14 14:55 | XR_ITS ---
FINAL REPORT TECHNIQUE: Chest PA & Lateral CLINICAL HISTORY: Near syncope, A-fib RVR COMPARISON: 03/05/2023 FINDINGS: 2 views of the chest were performed. The heart size is normal. The mediastinum is within normal limits. There is no acute cardiopulmonary process. There are no pleural effusions. There is no pneumothorax. The bony thorax appears intact. IMPRESSION: No acute cardiopulmonary process. Reviewed, Interpreted and Dictated by Salbador Luther MD Transcribed by Sherri Daly Authenticated and [facility]
[2024-04-14 14:56] LABS: Triiodothryronine (T3) Uptake 34 % (23.5-40.5)
[2024-04-14 14:57] LABS: Free Thyroxine Index 2.4 ug/dL (5.93-13.13); T4 (Thyroxine) 7.1 ug/dl (5.53-11.0)
[2024-04-14 15:11] LABS: Thyroid Stimulating Hormone 2.89 uIU/mL (0.465-4.68)
[2024-04-14 15:22] LABS: HIV Combo NEGATIVE (Negative)
[2024-04-14] MEDS: MAGNESIUM SULFATE IN WATER 2 GM/50 ML PIGGYBACK IV (15:28)
[2024-04-14 15:30] LABS: Hepatitis C Ab Qual. W/ RFX NEGATIVE (Negative)
== END 2024-04-14 16:45 | disposition home or self-care (01) ==
PROVIDERS: Physician Assistant; Emergency Provider Student in an Organized Health Care Education/Training Program; PCP Internal Medicine Adolescent Medicine
DX: I48.91 Unspecified atrial fibrillation (principal); R00.1 Bradycardia, unspecified; R79.89 Other specified abnormal findings of blood chemistry; R55 Syncope and collapse; R53.1 Weakness
CPT/HCPCS: 71046; 80053; 83735; 83880; 84436; 84443; 84479; 84484; 85025; 85610; 86803; 87389; 93005; 93225; 93226; 93227; 96365; 99291; J3475

== ENCOUNTER 2024-04-21 09:59 | Outpatient (CLI) | payer MEDICARE, OTHER, SELFPAY ==
[2024-04-21 10:05] VITALS: BP 143/44; PULSE 55; RESP 18; TEMP 37; O2SAT 98
[2024-04-21] MEDS: DENOSUMAB 60 MG/ML SYRINGE SUBCUT (10:05)
== END 2024-04-21 10:14 | disposition home or self-care (01) ==
LOC: INF 10:01
PROVIDERS: PCP Internal Medicine Adolescent Medicine; Visit Provider Internal Medicine Medical Oncology
DX: M81.0 Age-related osteoporosis without current pathological fracture (principal)
CPT/HCPCS: 96372; J0897

== ENCOUNTER 2024-05-05 08:15 | Outpatient (CLI) | payer MEDICARE, OTHER, SELFPAY ==
--- NOTE | 2024-05-05 08:16 | CT_ITS ---
FINAL REPORT TECHNIQUE: Multiple axial CT sections were performed from the foramen magnum to the vertex. Coronal reformatted images were also obtained. Precontrast and postcontrast injection images were obtained. This study was performed with technique to keep radiation doses as low as reasonably achievable, (ALARA). Individualized dose reduction techniques using automated exposure control or adjustment of mA and/or kV according to the patient size were employed. CLINICAL HISTORY: tinnitus, visual disturbance, tingling around mout FINDINGS: There is mild age-appropriate atrophy. The ventricles are normal in size. There is no evidence of hemorrhage. No masses are identified. No extra-axial fluid collection is seen. The paranasal sinuses, mastoid air cells, and middle ear cavities are well aerated. No osseous abnormality is seen on the bone window images. Postcontrast images demonstrate no abnormal enhancement. IMPRESSION: Mild age-appropriate atrophy without acute intracranial abnormality. Reviewed, Interpreted and Dictated by Salbador Luther MD Transcribed by Tomasa Cazares Authenticated and [facility]
[2024-05-05] MEDS: IOPAMIDOL-300 (61%) 100ML VIAL 100 ML IV (08:44)
[2024-05-05] MEDS: SODIUM CHLORIDE 0.9% 10ML SYR (RAD ONLY) 10 ML IV (08:44)
== END 2024-05-05 23:59 | disposition home or self-care (01) ==
LOC: RAD 08:16
PROVIDERS: PCP Internal Medicine Adolescent Medicine; Visit Provider Physician Assistant
DX: H53.9 Unspecified visual disturbance (principal); H93.19 Tinnitus, unspecified ear; R20.2 Paresthesia of skin
CPT/HCPCS: 70470; Q9967

== ENCOUNTER 2024-05-13 08:50 | Outpatient (CLI) | payer MEDICARE, OTHER, SELFPAY ==
--- NOTE | 2024-05-13 08:53 | CA_ITS ---
FINAL REPORT CLINICAL HISTORY: SYNCOPE,HTN,A-FIB COMPARISON: None FINDINGS: RIGHT CAROTID: CCA PSV - 70.6 cm/sec ICA PSV - 103.7 cm/sec ICA/CCA PSV ratio - 1.73 Comments: Mild plaque disease is noted. LEFTCAROTID: CCA PSV - 86.6. cm/sec ICA PSV - 137.9. cm/sec ICA/CCA PSV ratio - 1.70 Comments: Mild plaque disease is noted. Antegrade flow is seen within the vertebral arteries. IMPRESSION: Carotid stenosis classified less than 50% Reviewed, Interpreted and Dictated by Homer Magallon MD Transcribed by Sahuna Sher Authenticated and [facility]
--- NOTE | 2024-05-13 09:14 | XR_ITS ---
FINAL REPORT TECHNIQUE: Bone densitometry calculations of the lumbar spine and left hip were obtained. CLINICAL HISTORY: SYNCOPE/SCREENING COMPARISON: 09/05/2020 FINDINGS: Using L1-4, the bone mineral density of the spine is 1.084 g/cm2, corresponding to T-score of 0.3. Using the left hip, the bone mineral density of the femoral neck is 0.708 g/cm2, corresponding to a T-score of -1.9. NOTE: T-score: Standard deviation compared with peak bone mass of young adult mean. *Following the recommendations of the International Society of Bone densitometry, classification of hip BMD is based on the lower of two T-scores; total hip or femoral neck. IMPRESSION: Diminished bone mineral density of the left hip consistent with osteopenia. Normal bone mineral density of the lumbar spine. Reviewed, Interpreted and Dictated by Homer Magallon MD Transcribed by Sherri Daly Authenticated and [facility]
== END 2024-05-13 23:59 | disposition home or self-care (01) ==
LOC: RT 08:51
PROVIDERS: PCP Internal Medicine Adolescent Medicine; Visit Provider Nurse Practitioner Family
DX: R55 Syncope and collapse (principal); M81.0 Age-related osteoporosis without current pathological fracture; I10 Essential (primary) hypertension
CPT/HCPCS: 77080; 93880

== ENCOUNTER 2024-10-21 09:27 | Outpatient (CLI) | payer MEDICARE, OTHER, SELFPAY ==
--- OUTSIDE RECORDS SUMMARY | 2024-10-21 09:30 | XMS_ITS | Clinical Summary ---
Author Organization [facility] Address [address] [place] [id number] Care Team Providers Care Mixing Plant Operator Name Role Phone Allen Love MD Primary Care Provider [phone] Allergies Active Allergy Reactions Criticality Noted Date Comments Penicillins Unknown - Patient st ates they do not know rxn details Low 12/27/2019 Sulfacetamide Unknown - Patient st ates they do not know rxn details Low 12/27/2019 Sulfamethoxazole-Trimethoprim Unknown - Patient states they do not know rxn details Low 12/27/2019 Medications atorvastatin (Lipitor) 40 MG tablet TAKE 1 TABLET BY MOUTH AT BEDTIME FOR CHOLESTEROL 2 Active metoprolol succinate XL (Toprol-XL) 100 MG 24 hr tablet Take 100 mg by mouth 1 (one) time each day. 2 Active omeprazole (PriLOSEC) [address] capsule Take 20 mg by mouth 1 (one) time each day. 2 Active Rivaroxaban (XARELTO PO) Xarelto Active Active Problems Problem Noted Date Diagnosed Date Nuclear sclerotic cataract of both eyes 01/27/20 Glaucoma suspect of both eyes 01/26/2022 Dry eyes 01/26/2022 Family History Medical History Relation Name Comments Conversions - Other Father Conversions - Other Mother Relation Name Status Comments Father Mother Social History Tobacco Use Types Packs/Day Years Used Date Smoking Tobacco: Never Assessed Tobacco Cessation:Counseling Given: Not Answered Comments Unknown Sex and Gender Information Value Date Recorded Sex Assigned at Not on file Legal Sex Female 7:38 PM EDT Gender Identity Not on file Sexual Orientation Not on file Last Filed Vital Signs Vital Sign Reading Time Taken Comments Blood Pressure 103/61 02/14/2020 2:05 PM EST Pulse 54 02/14/2020 2:05 PM EST Temperature 36.3 C (97.3 F) 02/14/2020 2:05 PM EST Respiratory Rate - - Oxygen Saturation - - Inhaled Oxygen Concentration - - Weight 67.1 kg (147 lb 15.9 oz) 02/14/2020 2:05 PM EST Height 166.4 cm (5' 5.5 ) 02/14/2020 2:05 PM EST Body Mass Index 24.25 02/14/2020 2:05 PM EST Plan of Treatment Health Maintenance Due Date Last Done Comments [facility]-Bone Density Scan 1942 [facility]-Depression Screening 1942 [facility]-Medicare Annual Wellness (AWV) 1942 [facility]-/Child/Adol SDOH Screenings 1942 [facility]- SDOH Screenings 1960 [facility]-Adult SDOH Screenings 1960 [facility]-DTaP,Tdap,and Td Vaccines (1 - Tdap) 1961 [facility]-Pneumococcal Vaccine: 50+ Years (1 of 1 - PCV) 1992 [facility]-Zoster Vaccines (1 of 2) 1992 [facility]-RSV Vaccine: 60+ Years or (1 - 1-dose 75+ series) 2017 [id number] Vaccine (3 - 2023- season) 2023 06/13/2020, 05/16/2020 [facility]-Influenza Vaccine (#1) 2024 HPV Vaccines Aged Out No longer eligi ble based on patient's age to complete this topic [facility]-HIB Vaccines Aged Out No longer e ligible based on patient's age to complete this topic [facility]-Hepatitis A Vaccines Aged Out No longer eligible based on patient's age to complete this topic [facility]-IPV Vaccines Aged Out No longer e ligible based on patient's age to complete this topic [facility]-Rotavirus Vaccines Aged Out No lo nger eligible based on patient's age to complete this topic Insurance [place] [id number] [place] [address] [employer] Care Teams Mixing Plant Operator Relationship Specialty Start Date End Date Allen Love MD [address] [place] [address] PCP - General 08/17/20
--- OUTSIDE RECORDS SUMMARY | 2024-10-21 09:30 | XMS_ITS | Clinical Summary ---
Author Organization [facility] Address [address] [place] [phone] Phone Care Team Providers Care Appraisal Specialist Name Role Phone Tim Bansal MD Unavailable [ ] Conditions or Problems Problem Name Problem Code Onset Date Status Entry Date Provider Comment Standard Description Annotate Benign Essential Hypertension 92572208 (SNOMED CT) Active Daxa Cee Benign hypertension C. Difficile colitis 707854136 (SNOMED CT) Active Daxa Cee Clostridium difficile colitis Medications Medication Instructions Start Date Stop Date Generic Name NDC Provider [facility] OMEPRAZOLE 20 MG TBEC QD OMEPRAZOLE [id number] Sharmila Marin ATENOLOL 50 MG TABS QD ATENOLOL [id number] Sharmila Marin VANCOCIN HCL 125 MG ORAL CAPSULE QID VANCOMYCIN HCL [id number] Sharmila Marin Medications Administered No information available. 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 Procedures No information available. Vital Signs No information available. Immunizations No information available. Advance Directives No information available.
--- OUTSIDE RECORDS SUMMARY | 2024-10-21 09:30 | XMS_ITS | Data Portability ---
Author Organization NENA MEETA [facility] Address [address] [facility] [place] [address] Care Team Providers Care Claim Analyst Name Role Phone ERICANICHOLE IDRIS Primary Care Provider Assessment Encounter Date Assessment Date Assessment LastModified by Organization Details LastModified Time 03/21/2020 03/21/2020 PREOPERATIVE DIAGNOSIS: Right ureteral stone. POSTOPERATIVE DIAGNOSIS: Right ureteral stone. PROCEDURE: Right ureteroscopy, basket extraction of stone, right ureteral stent placement. ANESTHESIA: General. SURGEON: Sandoval Holley MD DRAINS: A 4.8 x 26 right ureteral stent, string attached. SPECIMEN: Right distal ureteral stone. COMPLICATION: None. INDICATIONS: The patient with a history of urolithiasis and for several months, has had irritative urination symptoms. She recently saw me and we arranged for a CT scan. This revealed a 5 millimeter stone in her transmural ureter on the right. She presents today for intervention. OPERATIVE NOTE: After satisfactory position, the genitalia was prepped and draped in normal fashion. The 21-[place] cystoscope and sheath was introduced. A 0.035 zip wire was advanced up the left ureter, which was mildly edematous at the orifice. After this, a semirigid ureteroscope was placed and the Sensor wire passed through the scope and passed additionally in the transmural ureter and used to dilate this. At this point, the stone was seen just inside the orifice. I then engaged the 2.4 Nitinol basket. This was retracted without trauma. The scope was replaced and there was no significant trauma in the ureter. It was dilated proximally. Due to the edema at the orifice, I did elect to place a stent. It was placed over the zip wire with a nice coil in the kidney and coil in the bladder. Strings were left attached and exiting the urethra. The string was secured to the pubic area with Tegaderm. She was placed on Macrobid 100 milligrams b.i.d. for 1 week. She will remove her stent in 48 hours and follow up with me in a month. [email or web address] Not available 03/22/2020 11:12:49 Plan of Treatment Reminders Order Date Submit Date Provider Last Modified By Organization Details Last Modified Time Details Appointments None recorded. Lab urinalysis panel, auto [address] [facility], [address], [address], [place], [address], 1 19:24:06 urinalysis panel, auto 2020 [address] [facility] [facility], [address], [address], [place], [address], 1 21:29:34 urinalysis panel, auto [address] [facility], [address], [address], [place], [address], 1 09:39:05 urinalysis panel, auto [address] [facility], [address], [address], [place], [address], 0 12:20:21 Referral None recorded. Procedures None recorded. Surgeries None recorded. Imaging CT, abdomen + pelvis, w/o contrast - stat work in 03/14/2020 [facility] [address] [facility], [address] [facility], [place], [address], 0 12:20:21 Medication Orders None recorded. Patient TargetsNo targets recorded. Patient Instructions Encounter Date Encounter Id Patient Instructions Last Modified By Organization Details Last Modified Time 03/14/2020 [id number] flank pain: care instructions [id number] Not available 03/15/2020 12:20:21 kidney stone: care instructions [id number] Not available 03/15/2020 11:47:21 08/17/2020 [id number] learning about healthy weight Not available 08/19/2020 21:29:33 03/22/2021 [id number] learning about healthy weight Not available 03/24/2021 19:24:07 Reason for Referral None Reported. Results Created Date Observation Date Name Description Value Unit Range Abnormal Flag Note LastModifiedBy Organization Detail LastModifiedTime 08/18/1908/17/2020 urina lysis panel , auto Unknown Analyte Clean Catch Not Available [facility] [address], [address], 08/17/2020 11:32:16 08/18/19 21 08/17/2020 urina lysis panel , auto Unknown Analyte Yellow Not Available [facility] [address], [address], 08/17/2020 11:32:16 08/18/19 21 08/17/2020 urina lysis panel , auto Unknown Analyte Clear Not Available [facility] [address], [address], 08/17/2020 11:32:16 08/18/19 21 08/17/2020 urina lysis panel , auto Unknown Analyte 1.010 Not Available [facility] [address], [address], 08/17/2020 11:32:16 08/18/19 21 08/17/2020 urina lysis panel , auto Unknown Analyte 1.003- 1.035 Not Available [facility] [address], [place], [address], 08/17/2020 11:32:16 08/18/19 21 08/17/2020 urina lysis panel , auto Unknown Analyte 5.0 Not Available [facility] [address], [place], [address], 08/17/2020 11:32:16 08/18/1908/17/2020 urina lysis panel , auto Unknown Analyte 5.0-8. 0 Not Available [facility] [address] [place] [address] [address], [place], [address], 08/17/2020 11:32:16 08/18/1908/17/2020 urina lysis panel , auto Unknown Analyte 75 Michael/ul (+) Not Available [facility] [address] [place] [address] [address], [place], [address], 08/17/2020 11:32:16 08/18/1908/17/2020 urina lysis panel , auto Unknown Analyte Negati ve Not Available [facility] [address] [place] [address] [address], [place], [address], 08/17/2020 11:32:16 08/18/1908/17/2020 urina lysis panel , auto Unknown Analyte Negati ve Not Available [facility] [address], [place], [address], 08/17/2020 11:32:16 08/18/19 21 08/17/2020 urina lysis panel , auto Unknown Analyte Negati ve Not Available [facility] [address], [place], [address], 08/17/2020 11:32:16 08/18/19 21 08/17/2020 urina lysis panel , auto Unknown Analyte Negati ve Not Available [facility] [address], [place], [address], 08/17/2020 11:32:16 08/18/1908/17/2020 urina lysis panel , auto Unknown Analyte Negati ve Not Available [facility] [address], [place], [address], 08/17/2020 11:32:16 08/18/19 21 08/17/2020 urina lysis panel , auto Unknown Analyte Normal Not Available [facility] [address], [place], [address], 08/17/2020 11:32:16 08/18/19 21 08/17/2020 urina lysis panel , auto Unknown Analyte Normal Not Available [facility] [address], [place], [address], 08/17/2020 11:32:16 08/18/19 21 08/17/2020 urina lysis panel , auto Unknown Analyte Negati ve Not Available [facility] [address], [place], [address], 08/17/2020 11:32:16 08/18/19 21 08/17/2020 urina lysis panel , auto Unknown Analyte Negati ve Not Available [facility] [address], [place], [address], 08/17/2020 11:32:16 08/18/19 21 08/17/2020 urina lysis panel , auto Unknown Analyte Normal Not Available [facility] [address], [place], [address], 08/17/2020 11:32:16 08/18/1908/17/2020 urina lysis panel , auto Unknown Analyte Normal 1 mg/dl Not Available [facility] [address], [place], [address], 08/17/2020 11:32:16 08/18/19 21 08/17/2020 urina lysis panel , auto Unknown Analyte Negati ve Not Available [facility] [address], [place], [address], 08/17/2020 11:32:16 08/18/19 21 08/17/2020 urina lysis panel , auto Unknown Analyte Negati ve Not Available [facility] [address], [place], [address], 08/17/2020 11:32:16 08/18/19 21 08/17/2020 urina lysis panel , auto Unknown Analyte Negati ve Not Available [facility] [address], [place], [address], 08/17/2020 11:32:16 08/18/19 21 08/17/2020 urina lysis panel , auto Unknown Analyte Negati ve Not Available [facility] [address], [place], [address], 08/17/2020 11:32:16 04/20/19 21 04/20/2020 urina lysis panel , auto Unknown Analyte Clean Catch Not Available [facility] [address], [place], [address], 04/20/2020 15:58:20 04/20/19 21 04/20/2020 urina lysis panel , auto Unknown Analyte Yellow Not Available [facility] [address], [place], [address], 04/20/2020 15:58:20 04/20/19 21 04/20/2020 urina lysis panel , auto Unknown Analyte Clear Not Available [facility] [address], [place], [address], 04/20/2020 15:58:20 04/20/19 21 04/20/2020 urina lysis panel , auto Unknown Analyte 1.020 Not Available [facility] [address], [place], [address], 04/20/2020 15:58:20 04/20/19 21 04/20/2020 urina lysis panel , auto Unknown Analyte 1.003- 1.035 Not Available [facility] [address], [place], [address], 04/20/2020 15:58:20 04/20/19 21 04/20/2020 urina lysis panel , auto Unknown Analyte 5.0 Not Available [facility] [address], [place], [address], 04/20/2020 15:58:20 04/20/19 21 04/20/2020 urina lysis panel , auto Unknown Analyte 5.0-8. 0 Not Available [facility] [address], [place], [address], 04/20/2020 15:58:20 04/20/19 21 04/20/2020 urina lysis panel , auto Unknown Analyte 25 Michael/ul Trace Not Available [facility] [address], [place], [address], 04/20/2020 15:58:20 04/20/19 21 04/20/2020 urina lysis panel , auto Unknown Analyte Negati ve Not Available [facility] [address], [place], [address], 04/20/2020 15:58:20 04/20/19 21 04/20/2020 urina lysis panel , auto Unknown Analyte Negati ve Not Available [facility] [address], [place], [address], 04/20/2020 15:58:20 04/20/19 21 04/20/2020 urina lysis panel , auto Unknown Analyte Negati ve Not Available [facility] [address], [place], [address], 04/20/2020 15:58:20 04/20/19 21 04/20/2020 urina lysis panel , auto Unknown Analyte Negati ve Not Available [facility] [address], [place], [address], 04/20/2020 15:58:20 04/20/19 21 04/20/2020 urina lysis panel , auto Unknown Analyte Negati ve Not Available [facility] [address], [place], [address], 04/20/2020 15:58:20 04/20/19 21 04/20/2020 urina lysis panel , auto Unknown Analyte Normal Not Available [facility] [address], [place], [address], 04/20/2020 15:58:20 04/20/19 21 04/20/2020 urina lysis panel , auto Unknown Analyte Normal Not Available [facility] [address], [place], [address], 04/20/2020 15:58:20 04/20/19 21 04/20/2020 urina lysis panel , auto Unknown Analyte Negati ve Not Available [facility] [address], [place], [address], 04/20/2020 15:58:20 04/20/19 21 04/20/2020 urina lysis panel , auto Unknown Analyte Negati ve Not Available [facility] [address], [place], [address], 04/20/2020 15:58:20 04/20/19 21 04/20/2020 urina lysis panel , auto Unknown Analyte Normal Not Available [facility] [address], [place], [address], 04/20/2020 15:58:20 04/20/19 21 04/20/2020 urina lysis panel , auto Unknown Analyte Normal 1 mg/dl Not Available [facility] [address], [place], [address], 04/20/2020 15:58:20 04/20/19 21 04/20/2020 urina lysis panel , auto Unknown Analyte Negati ve Not Available [facility] [address], [place], [address], 04/20/2020 15:58:20 04/20/19 21 04/20/2020 urina lysis panel , auto Unknown Analyte Negati ve Not Available [facility] [address], [place], [address], 04/20/2020 15:58:20 04/20/19 21 04/20/2020 urina lysis panel , auto Unknown Analyte Trace Not Available [facility] [address], [place], [address], 04/20/2020 15:58:20 04/20/19 21 04/20/2020 urina lysis panel , auto Unknown Analyte Negati ve Not Available [facility] [address] [place] [address] [address], [place], [address], 04/20/2020 15:58:20 03/14/20 20 03/14/2020 urina lysis panel , auto Unknown Analyte Clean Catch Not Available [facility] [address], [place], [address], 03/14/2020 13:30:31 03/14/20 20 03/14/2020 urina lysis panel , auto Unknown Analyte Yellow Not Available [facility] [address], [place], [address], 03/14/2020 13:30:31 03/14/20 20 03/14/2020 urina lysis panel , auto Unknown Analyte Clear Not Available [facility] [address], [place], [address], 03/14/2020 13:30:31 03/14/20 20 03/14/2020 urina lysis panel , auto Unknown Analyte 1.010 Not Available [facility] [address], [place], [address], 03/14/2020 13:30:31 03/14/20 20 03/14/2020 urina lysis panel , auto Unknown Analyte 1.003- 1.035 Not Available [facility] [address], [place], [address], 03/14/2020 13:30:31 03/14/20 20 03/14/2020 urina lysis panel , auto Unknown Analyte 6.0 Not Available [facility] [address], [place], [address], 03/14/2020 13:30:31 03/14/20 20 03/14/2020 urina lysis panel , auto Unknown Analyte 5.0-8. 0 Not Available [facility] [address], [place], [address], 03/14/2020 13:30:31 03/14/20 20 03/14/2020 urina lysis panel , auto Unknown Analyte Negati ve Not Available [facility] [address], [place], [address], 03/14/2020 13:30:31 03/14/20 20 03/14/2020 urina lysis panel , auto Unknown Analyte Negati ve Not Available [facility] [address], [place], [address], 03/14/2020 13:30:31 03/14/2003/14/2020 urina lysis panel , auto Unknown Analyte Negati ve Not Available [facility] [address], [place], [address], 03/14/2020 13:30:31 03/14/2003/14/2020 urina lysis panel , auto Unknown Analyte Negati ve Not Available [facility] [address], [place], [address], 03/14/2020 13:30:31 03/14/2003/14/2020 urina lysis panel , auto Unknown Analyte Negati ve Not Available [facility] [address], [place], [address], 03/14/2020 13:30:31 03/14/2003/14/2020 urina lysis panel , auto Unknown Analyte Negati ve Not Available [facility] [address], [place], [address], 03/14/2020 13:30:31 03/14/2003/14/2020 urina lysis panel , auto Unknown Analyte Normal Not Available [facility] [address], [place], [address], 03/14/2020 13:30:31 03/14/20 20 03/14/2020 urina lysis panel , auto Unknown Analyte Normal Not Available [facility] [address], [place], [address], 03/14/2020 13:30:31 03/14/20 20 03/14/2020 urina lysis panel , auto Unknown Analyte Negati ve Not Available [facility] [address], [place], [address], 03/14/2020 13:30:31 03/14/20 20 03/14/2020 urina lysis panel , auto Unknown Analyte Negati ve Not Available [facility] [address], [place], [address], 03/14/2020 13:30:31 03/14/20 20 03/14/2020 urina lysis panel , auto Unknown Analyte Normal Not Available [facility] [address], [place], [address], 03/14/2020 13:30:31 03/14/20 20 03/14/2020 urina lysis panel , auto Unknown Analyte Normal 1 mg/dl Not Available [facility] [address], [place], [address], 03/14/2020 13:30:31 03/14/20 20 03/14/2020 urina lysis panel , auto Unknown Analyte Negati ve Not Available [facility] [address], [place], [address], 03/14/2020 13:30:31 03/14/20 20 03/14/2020 urina lysis panel , auto Unknown Analyte Negati ve Not Available [facility] [address], [place], [address], 03/14/2020 13:30:31 03/14/20 20 03/14/2020 urina lysis panel , auto Unknown Analyte 50 Debi/ul Not Available [facility] [address], [place], [address], 03/14/2020 13:30:31 03/14/20 20 03/14/2020 urina lysis panel , auto Unknown Analyte Negati ve Not Available [facility] [address], [place], [address], 03/14/2020 13:30:31 02/22/2002/22/2020 urina lysis panel , auto Unknown Analyte Clean Catch Not Available [facility] [address], [place], [address], 02/22/2020 15:40:42 02/22/2002/22/2020 urina lysis panel , auto Unknown Analyte Yellow Not Available [facility] [address], [place], [address], 02/22/2020 15:40:42 02/22/2002/22/2020 urina lysis panel , auto Unknown Analyte Clear Not Available [facility] [address], [place], [address], 02/22/2020 15:40:42 02/22/20 20 02/22/2020 urina lysis panel , auto Unknown Analyte 1.020 Not Available [facility] [address], [place], [address], 02/22/2020 15:40:42 02/22/20 20 02/22/2020 urina lysis panel , auto Unknown Analyte 1.003- 1.035 Not Available [facility] [address], [place], [address], 02/22/2020 15:40:42 02/22/20 20 02/22/2020 urina lysis panel , auto Unknown Analyte 5.0 Not Available [facility] [address], [place], [address], 02/22/2020 15:40:42 02/22/20 20 02/22/2020 urina lysis panel , auto Unknown Analyte 5.0-8. 0 Not Available [facility] [address], [place], [address], 02/22/2020 15:40:42 02/22/20 20 02/22/2020 urina lysis panel , auto Unknown Analyte 25 Michael/ul Trace Not Available [facility] [address], [place], [address], 02/22/2020 15:40:42 02/22/20 20 02/22/2020 urina lysis panel , auto Unknown Analyte Negati ve Not Available [facility] [address], [place], [address], 02/22/2020 15:40:42 02/22/20 20 02/22/2020 urina lysis panel , auto Unknown Analyte Negati ve Not Available [facility] [address], [place], [address], 02/22/2020 15:40:42 02/22/20 20 02/22/2020 urina lysis panel , auto Unknown Analyte Negati ve Not Available [facility] [address], [place], [address], 02/22/2020 15:40:42 02/22/20 20 02/22/2020 urina lysis panel , auto Unknown Analyte Negati ve Not Available [facility] [address], [place], [address], 02/22/2020 15:40:42 02/22/20 20 02/22/2020 urina lysis panel , auto Unknown Analyte Negati ve Not Available [facility] [address], [place], [address], 02/22/2020 15:40:42 02/22/20 20 02/22/2020 urina lysis panel , auto Unknown Analyte Normal Not Available [facility] [address], [place], [address], 02/22/2020 15:40:42 02/22/20 20 02/22/2020 urina lysis panel , auto Unknown Analyte Normal Not Available [facility] - [facility] [address], [place], [address], 02/22/2020 15:40:42 02/22/20 20 02/22/2020 urina lysis panel , auto Unknown Analyte 15 mg/dl (Sm) Not Available [facility] [address], [place], [address], 02/22/2020 15:40:42 02/22/20 20 02/22/2020 urina lysis panel , auto Unknown Analyte Negati ve Not Available [facility] [address], [place], [address], 02/22/2020 15:40:42 02/22/20 20 02/22/2020 urina lysis panel , auto Unknown Analyte Normal Not Available [facility] [address], [place], [address], 02/22/2020 15:40:42 02/22/20 20 02/22/2020 urina lysis panel , auto Unknown Analyte Normal 1 mg/dl Not Available [facility] [address], [place], [address], 02/22/2020 15:40:42 02/22/20 20 02/22/2020 urina lysis panel , auto Unknown Analyte 1 mg/dl (+) Not Available [facility] [address], [place], [address], 02/22/2020 15:40:42 02/22/20 20 02/22/2020 urina lysis panel , auto Unknown Analyte Negati ve Not Available [facility] [address], [place], [address], 02/22/2020 15:40:42 02/22/20 20 02/22/2020 urina lysis panel , auto Unknown Analyte Negati ve Not Available [facility] [address], [place], [address], 02/22/2020 15:40:42 02/22/20 20 02/22/2020 urina lysis panel , auto Unknown Analyte Negati ve Not Available [facility] [address], [place], [address], 02/22/2020 15:40:42 02/22/20 20 02/22/2020 cultu re, urine results Sour e: CCUR Colle cted: 02/21 16:34 Site: Recei malinda : 02/21 20:18 URINE CULTU RE FINAL 02/23 11:56 02/23 No signi reneean t growt h. Not Available [facility] [address] [place] [address], [address], 02/24/2020 11:56:33 03/20/20 20 03/21/2020 SARS CoV 2 RNA (COVI D-19) , QL, chrome plater-P CR, respi rator y speci men sars cov2 result NEGATI VE normal Not Available [facility] [address] [place], [address], 03/21/2020 08:17:48 03/21/20 20 03/26/2020 kidne y stone aleah sis composition SEE BELOW normal Calci um Oxala te Dihyd rate (Wedd ellit e) 80% Carbo chris Apati te (Dahl lite) 10% Uric Acid 10% See Note 1 Not Available [facility] [address] [place] [address], [address], 03/26/2020 06:46:48 03/21/20 20 03/26/2020 kidne y stone aleah sis weight 0.070 g normal Note 1 This test was devel oped and its aleah tical perfo rmanc e srinath cteri stics have been deter mined by [facility]. It has not been clear ed or appro malinda by the FDA. This assay has been valid ated pursu ant to the CLIA regul ation s and is used for clini austyn purpo ses. TEST PERFO RMED AT: [facility] [address] [place] [address] Don BEAL Not Available [facility] [address] [place] [address], [address], 03/26/2020 06:46:48 03/21/20 20 03/21/2020 urina lysis panel , auto Unknown Analyte Clean Catch Not Available [facility] [address] [place], [address], 03/21/2020 16:26:24 03/21/20 20 03/21/2020 urina lysis panel , auto Unknown Analyte Yellow Not Available [facility] Schedule [address] [place], [address], 03/21/2020 16:26:24 03/21/20 20 03/21/2020 urina lysis panel , auto Unknown Analyte Clear Not Available [facility] Schedule [address] [place], [address], 03/21/2020 16:26:24 03/21/20 20 03/21/2020 urina lysis panel , auto Unknown Analyte 1.020 Not Available [facility] Schedule [address] [place], [address], 03/21/2020 16:26:24 03/21/20 20 03/21/2020 urina lysis panel , auto Unknown Analyte 5.0 Not Available [facility] Schedule [address] [place], [address], 03/21/2020 16:26:24 03/21/20 20 03/21/2020 urina lysis panel , auto Unknown Analyte Negati ve Not Available [facility] [address] [place], [address], 03/21/2020 16:26:24 03/21/20 20 03/21/2020 urina lysis panel , auto Unknown Analyte Negati ve Not Available [facility] [address] [place], [address], 03/21/2020 16:26:24 03/21/20 20 03/21/2020 urina lysis panel , auto Unknown Analyte Trace Not Available [facility] Schedule [address] [place], [address], 03/21/2020 16:26:24 03/21/20 20 03/21/2020 urina lysis panel , auto Unknown Analyte Normal Not Available [facility] Schedule [address] [place], [address], 03/21/2020 16:26:24 03/21/20 20 03/21/2020 urina lysis panel , auto Unknown Analyte 15 mg/dl (Sm) Not Available [facility] [address] [place], [address], 03/21/2020 16:26:24 03/21/20 20 03/21/2020 urina lysis panel , auto Unknown Analyte Normal Not Available [facility] Schedule [address] [place], [address], 03/21/2020 16:26:24 03/21/20 20 03/21/2020 urina lysis panel , auto Unknown Analyte Negati ve Not Available [facility] [address] [place], [address], 03/21/2020 16:26:24 03/21/20 20 03/21/2020 urina lysis panel , auto Unknown Analyte 250 Debi/ul Not Available [facility] [address] [place], [address], 03/21/2020 16:26:24 03/22/20 21 03/22/2021 urina lysis panel , auto Unknown Analyte Clean Catch Not Available [facility] [address], [place], [address], 03/22/2021 15:05:37 03/22/20 21 03/22/2021 urina lysis panel , auto Unknown Analyte Yellow Not Available [facility] [address], [place], [address], 03/22/2021 15:05:37 03/22/20 21 03/22/2021 urina lysis panel , auto Unknown Analyte Clear Not Available [facility] [address], [place], [address], 03/22/2021 15:05:37 03/22/20 21 03/22/2021 urina lysis panel , auto Unknown Analyte 1.005 Not Available [facility] [address], [place], [address], 03/22/2021 15:05:37 03/22/20 21 03/22/2021 urina lysis panel , auto Unknown Analyte 5.0 Not Available [facility] [address], [place], [address], 03/22/2021 15:05:37 03/22/20 21 03/22/2021 urina lysis panel , auto Unknown Analyte Negati ve Not Available [facility] [address], [place], [address], 03/22/2021 15:05:37 03/22/20 21 03/22/2021 urina lysis panel , auto Unknown Analyte Negati ve Not Available [facility] [address], [place], [address], 03/22/2021 15:05:37 03/22/20 21 03/22/2021 urina lysis panel , auto Unknown Analyte Negati ve Not Available [facility] [address], [place], [address], 03/22/2021 15:05:37 03/22/20 21 03/22/2021 urina lysis panel , auto Unknown Analyte Normal Not Available [facility] [address], [place], [address], 03/22/2021 15:05:37 03/22/20 21 03/22/2021 urina lysis panel , auto Unknown Analyte Negati ve Not Available [facility] [address], [place], [address], 03/22/2021 15:05:37 03/22/20 21 03/22/2021 urina lysis panel , auto Unknown Analyte Normal Not Available [facility] [address], [place], [address], 03/22/2021 15:05:37 03/22/20 21 03/22/2021 urina lysis panel , auto Unknown Analyte Negati ve Not Available [facility] [address], [place], [address], 03/22/2021 15:05:37 03/22/20 21 03/22/2021 urina lysis panel , auto Unknown Analyte Negati ve Not Available [facility] [address], [place], [address], 03/22/2021 15:05:37 03/14/20 20 03/14/2020 CT, abdom en + pelvi s, w/o contr ast [facility] [address] [facility] [place] [address] Patien t Name: FRANCIS CRAWFORD N Patien t : [birth year] Patien t 9 Orderi ng Provid er: TIMOTH Y D HOLLEY EXAM DATE: 2019 EXAM: CT R/O KIDNEY STONES (A/P W/O) CLINIC AL INFORM ATION: Microh ematur ia. TECHNI QUE: Multip le axial CT images of the abdome n and pelvis were obtain ed withou t inject ion of IV contra st using the urinar y stone protoc ol. COMPAR JAYNA: None. FINDIN GS ON CT ABDOME N: LOWER THORAX : Lung bases are clear. Small perica rdial effusi on is seen. URINAR Y TRACT: Both kidney s are normal in locati on, size, shape, outlin e and parenc hymal thickn ess. There is a 4 mm, 700 Hounsf ield unit nonobs tructi ng stone impact ed in the right UVJ. No stones or calcif icatio ns are seen within the kidney s, left ureter or urinar y bladde r. No hydron ephros is, hydrou reter or perine phric strand ing is presen t. There is a 1 cm diamet er simple cyst in the right kidney . OTHER UPPER ABDOMI NAL ORGANS : Liver, gallbl adder, spleen , pancre as, and adrena ls are normal within the limits on interp retati on impose d by the absenc e of IV contra st. There is a 14 mm diamet er distal spleni c artery aneury sm. It is calcif ied. BOWEL AND MESENT DEBI: Stomac h, small bowel and colon are normal . No mesent sameer lympha denopa thy or perito lisa free fluid. RETROP ERITON EUM:Li mited evalua tion due to absenc e of IV contra st. Aorta shows athero sclero tic calcif icatio ns with normal aortic calibe r. IVC and branch es are normal . No retrop eriton eal lympha denopa thy. BODY WALL AND MUSCUL OSKELE EUGENIA STRUCT URES: Degene rative change s of the lumbar spine are noted. Anteri or abdomi nal wall is normal . FINDIN GS ON CT PELVIS : PELVIC CAVITY : Urinar y bladde r and rectos igmoid are normal . Uterus is atroph ic in keepin g with the patien t's age. Ovarie s are not visual ized. No pelvic or inguin al lympha denopa thy, mass or fluid. MUSCUL OSKELE EUGENIA STRUCT URES: Normal . COMBIN ED IMPRES TAMMY: 1. Impact ed nonobs tructi ng right UVJ stone. 2. Simple cyst right kidney . Interp reted By: Mathieu Renteria MD Electr onical ly Signed By: Mathieu Renteria MD on 020 5:[address] [facility] [address] [place] [address], [address], 03/15/2020 12:05:28 03/22/20 21 03/22/2021 XR, abdom en, 1 view No observ ation record ed. [address] ([facility]) [address] [facility] [place], [address], 04/04/2021 11:19:53 Result Notes Documentation Provider Name and Address Organization Details Recorded Time Ct, Abdomen + Pelvis, W/o Contrast : [facility] [address] [place] [address] Patient Name: HAZEL LAM Patient : [id number] Patient Ordering Provider: SANDOVAL HOLLEY EXAM DATE: 03/14/2020 EXAM: CT R/O KIDNEY STONES (A/P W/O) CLINICAL INFORMATION: Microhematuria. TECHNIQUE: Multiple axial CT images of the abdomen and pelvis were obtained without injection of IV contrast using the urinary stone protocol. COMPARISON: None. FINDINGS ON CT ABDOMEN: LOWER THORAX: Lung bases are clear. Small pericardial effusion is seen. URINARY TRACT: Both kidneys are normal in location, size, shape, outline and parenchymal thickness. There is a 4 mm, 700 Hounsfield unit nonobstructing stone impacted in the right UVJ. No stones or calcifications are seen within the kidneys, left ureter or urinary bladder. No hydronephrosis, hydroureter or perinephric stranding is present. There is a 1 cm diameter simple cyst in the right kidney. OTHER UPPER ABDOMINAL ORGANS: Liver, gallbladder, spleen, pancreas, and adrenals are normal within the limits on interpretation imposed by the absence of IV contrast. 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 It is calcified. BOWEL AND MESENTERY: Stomach, small bowel and colon are normal. No mesenteric lymphadenopathy or peritoneal free fluid. RETROPERITONEUM:Limited evaluation due to absence of IV contrast. Aorta shows atherosclerotic calcifications with normal aortic caliber. IVC and branches are normal. No retroperitoneal lymphadenopathy. BODY WALL AND MUSCULOSKELETAL STRUCTURES: Degenerative changes of the lumbar spine are noted. Anterior abdominal wall is normal. FINDINGS ON CT PELVIS: PELVIC CAVITY: Urinary bladder and rectosigmoid are normal. Uterus is atrophic in keeping with the patient's age. Ovaries are not visualized. No pelvic or inguinal lymphadenopathy, mass or fluid. MUSCULOSKELETAL STRUCTURES: Normal. COMBINED IMPRESSION: 1. Impacted nonobstructing right UVJ stone. 2. Simple cyst right kidney. Interpreted By: Caesar Renteria MD OVAL HOLLEY MD [address] [place] [address], [address] 03/15/2020 12:05:29 Procedures Surgical History Date Name Laterality Status Provider Name and Address Organization Details Recorded Time Kidney Stones completed Letty [facility] 08/17/2019 15:30:56 Imaging Results None recorded. Procedure Notes None recorded. Medical Equipment None Reported. Allergies Allergen ID Allergen Name Allergen Category Reaction Reaction Severity Criticality Documentation Date Start Date Code Code System Note Provider Name and Address Organization Details Recorded Time 195674 Substance with sulfonami de structure and antibacte rial mechanism of action (substanc e) medicatio n Not available Not available Not available 08/17/2019 66444 8003 Eye-Fi Letty Barbosa [facility] 0 15:28:44 [id number] Product containin g penicilli n (product) medicatio n Not available Not available Not available 08/17/2019 28008 8006 SNOMED Letty Elizaldeles [facility] 15:28:58 Medications Name Sig Start Date Stop Date Status Note LastModified by Organization Details LastModified Time alendronate 70 mg tablet Take 1 tablet every week by oral route. 08/17 completed Not Available Not Available Not Available Macrobid 100 mg capsule Take 1 capsule every 12 hours by oral route. 04/20 completed Not Available Not Available Not Available doxycycline monohydrate 100 mg capsule Take 1 capsule twice a day by oral route. 04/20 completed Not Available Not Available Not Available Williamson 7.5 mg-325 mg tablet Take 1 tablet every 6 hours by oral route. 04/20 completed Not Available Not Available Not Available atorvastatin active Not Available Not Available Not Available omeprazole active Not Available Not Av ailable Not Available metoprolol succinate active Not Available Not Available No t Available Cartia XT 04/20 completed Not Available Not Available Not Available Asprin Ec Low Dose 08/17 completed Not Available Not Available Not Available Xarelto active Not Available Not Avail able Not Available Vitals Date Recorded Body height Body mass index (BMI) Body weight Body temperature Provider Name and Address Organization Details Last Updated DateTime 04/20/2020 165.1 cm 25 kg/m2 57757.86 g 97.1 [degF] Deseriee [place] [facility] 04/20/2020 15:57:32 Date Recorded Body height Body mass index (BMI) Body weight Provider Name and Address Organization Details Last Updated DateTime 08/17/2020 165.1 cm 25 kg/m2 64551.86 g Letty Elizaldeles [facility] 08/17/2020 11:31:50 Date Recorded Body height Body mass index (BMI) Body weight Provider Name and Address Organization Details Last Updated DateTime 03/14/2020 165.1 cm 25 kg/m2 25293.86 g Gaviota Jessie [facility] 03/14/2020 13:27:46 Date Recorded Body height Body mass index (BMI) Body weight Provider Name and Address Organization Details Last Updated DateTime 03/22/2021 165.1 cm 25 kg/m2 03471.86 g Letty Familia [facility] 03/22/2021 15:04:58 Social History Question Answer Notes LastModified by Organizat ion Details LastModified Time Tobacco Smoking Status Never Smoker Letty Barbosa [facility] 08/17/2019 15:30:28 How Much Tobacco Do You Chew? None [email or web address] Information not available 08/17/2019 Marital Status [email or web address] Informatio n not available 08/17/2019 How Much Tobacco Do You Smoke? No [email or web address] Information not available 08/17/2019 Has Tobacco Cessation Counseling Been Provided? No [email or web address] Information not available 03/22/2021 Have You Recently Traveled Abroad? No Information not available 03/22/2021 Sex: Unknown Functional Status Question Answer Note LastModified by Organizat ion Details LastModified Time Do you use any illicit or recreational drugs? No [email or web address] Information not available 03/22/2021 Do you or have you ever used any other forms of tobacco or nicotine? No Information not available 03/22/2021 What is your level of alcohol consumption? None Information not available 08/17/2019 Mental Status None recorded. Family History Relationship Description Onset Age of this Age Resolved Age Notes LastModified by Organization Details LastModified Time Mother Family history of malignant neoplasm [email or web address] Not available 08/16 15:30:21 Medical History Condition Response Anxiety Disorder Y Acid Reflux (GERD) Y Heart Disease Y Kidney Stones Y Gynecological HistoryNo gynecological history recorded. Obstetrics History GPAL:G 0 P 0 0 0 0 Past Encounters Encounter ID Performer Location Encounter Start Date Encounter Closed Date Diagnosis/Indication Diagnosis SNOMED-CT Code Diagnosis ICD10 Code Diagnosis Note [id number] MD ELVA HAYNES [facility] [address] [place] [address] 08/17/2019 14:28:42 08/17/2019 15:44:17 Urolithiasis 04760933 N20.9 she will contact me for results of her CT scan plan as above Loy hematuria 36723978 5 R31.0 [id number] MD ELVA HAYNES [facility] [address] [place] [address] 02/22/2020 14:45:10 02/22/2020 15:54:48 Chronic infective cystitis 122763298 N30.20 follow-up 3-4 weeks [id number] SANDOVAL HOLLEY MD [facility] [address] [place] [address] 03/14/2020 12:43:30 03/14/2020 17:10:27 Flank pain 727028864 R10.9 Ureteric stone 30922767 N20.[address] scan after she had left the office. I spoke with her on the phone. She does have a 5 mm stone in her right transmural ureter. It looks very near to progress into the bladder. We discussed continued observatio n but if she fails to pass the stone she will contact me on Thursday we will arrange for ureterosco pic stone extraction . [id number] SANDOVAL HOLLEY MD SURGERY SCHEDULE [address] [place] [address] 03/21/2020 09:48:05 03/21/2020 09:51:22 [id number] MD ELVA [facility]AYNES [facility] [address] [address] 04/20/2020 15:24:28 04/20/2020 16:38:49 Urolithiasis 78341656 N20.9 She will follow up with me in 4 months with a KUB [id number] MD ELVA HAYNES [facility] [address] [address] 08/17/2020 10:56:10 08/17/2020 11:54:25 Urolithiasis 75164354 N20.9 She will follow up with me in 6 months with a KUB [id number] SANDOVAL HOLLEY MD [facility] [address] [address] 03/22/2021 14:04:14 03/22/2021 15:38:59 History of urinary stone 488266292 Z87.442 Follow-up 1 year with [facility] Concerns Section Related Observation LastModified by Organization Detai ls LastModified Time None Recorded Concern Status LastModified by Organization Details LastModified Time None Recorded Advance Directives Directive None Recorded Payers Insurance Date Sequence Insurance Name Policy Number Policy Valentin Covered Member ID Valentin Member ID Guarantor Name 12/01/2023 2 [employer] INSURANCE [employer] (MEDICARE SUPPLEMENT) Hazel Lam [id number] Hazel Lam 12/01/2023 1 [place] Hazel Lam [id number] Hazel Lam 12/01/2023 2 [employer] Hazel Lam [id number] Hazel Lam Notes Date Note Type Note Provider Name and Address Organization Details Recorded Time 03/14/2020 text/html the patient is h ere for a 3 week follow-up for irritative voiding symptoms. He has previous history of chronic ureteritis but also urolithiasis. Last week she had several days of significant right lower quadrant and vaginal discomfort. She did not have severe flank pain. 3 weeks ago she was not having flank pain only urinary frequency. I placed her on antibiotics. Unfortunately she has had no improvement. I suggest we arrange for a CT scan today to rule out a distal ureteral stone. SANDOVAL HOLLEY MD [address] [place] [address] [place], [address], [facility] 03/15/2020 11:47:56 04/20/2020 text/html Patient is here in follow-up of ureteroscopy and laser of right distal ureteral stone. She is now 1 month postop. She feels well and has been back to normal. She has ever had more issues with her atrial fibrillation which has been symptomatic. She was hospitalized overnight during the last month. Her stone analysis was 90% calcium oxalate but 10% uric acid. We discussed consideration of starting her on allopurinol in hopes to decrease any stone treatment C. She has recently had significant medication changes and she would like to consider adding this but not started at this time. This seems reasonable. SANDOVAL HOLLEY MD [facility] [place], [address], [facility] 04/22/2020 09:39:36 08/17/2020 text/html Patient is here for 3 month follow-up. She has history of ureteroscopy and laser right distal ureteral stone. She was also having issues with atrial fibrillation at that time but is now doing quite well and feels well. Her stone analysis was calcium oxylate 90% and 10% uric acid. She was hesitant to start any new medications at that time and continues to do well. She has had no flank pain. We discussed continued observation. [place], [address], [facility] 08/19/2020 21:30:05 03/22/2021 text/html Patient is here in follow-up in 6 months regarding urolithiasis. She had right ureteroscopy and laser stoneMonths ago. Her stone analysis was 90% calcium oxalate 10% uric acid. KUB today shows no obvious stones. She has had no issues. She elected not to start allopurinol at that time. Her urine today is unremarkable. She is well hydrated. We will remove her to yearly follow-up. MD Ch[place], [address], [facility] 03/24/2021 19:24:42 OBGyn Episode No OBEpisode recorded.
[2024-10-21 09:45] VITALS: BP 142/63; PULSE 55; RESP 17; O2SAT 98
[2024-10-21] MEDS: DENOSUMAB 60 MG/ML SYRINGE SUBCUT (09:45)
== END 2024-10-21 10:00 | disposition home or self-care (01) ==
LOC: INF 09:28
PROVIDERS: PCP Internal Medicine Adolescent Medicine; Visit Provider Internal Medicine Adolescent Medicine
DX: M81.8 Other osteoporosis without current pathological fracture (principal)
CPT/HCPCS: 96372; J0897

== ENCOUNTER 2024-11-07 11:31 | Outpatient (CLI) | payer MEDICARE, OTHER, SELFPAY ==
--- OUTSIDE RECORDS SUMMARY | 2024-11-07 11:34 | XMS_ITS | Clinical Summary ---
Author Organization [facility] Address [address] [place] [id number] Phone Care Team Providers Care Health Safety Coordinator Name Role Phone Tim Bansal MD Unavailable [ ] Conditions or Problems Problem Name Problem Code Onset Date Status Entry Date Provider Comment Standard Description Annotate Benign Essential Hypertension 31913547 (SNOMED CT) Active Daxa Cee Benign hypertension C. Difficile colitis 883987869 (SNOMED CT) Active Daxa Cee Clostridium difficile colitis Medications Medication Instructions Start Date Stop Date Generic Name NDC Provider [facility] OMEPRAZOLE 20 MG TBEC QD OMEPRAZOLE [id number] Sharmila Marin ATENOLOL 50 MG TABS QD ATENOLOL [id number] Sharmila Marin VANCOCIN HCL 125 MG ORAL CAPSULE QID VANCOMYCIN HCL [id number] Sharmila Marin Medications Administered No information available. 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 Procedures No information available. Vital Signs No information available. Immunizations No information available. Advance Directives No information available.
--- OUTSIDE RECORDS SUMMARY | 2024-11-07 11:34 | XMS_ITS | Clinical Summary ---
Author Organization [facility] Address [address] [place] [address] Care Team Providers Care Senior Information Security Architect Name Role Phone Allen Love MD Primary Care Provider [phone] Allergies Active Allergy Reactions Criticality Noted Date [...] Screening 1942 [facility]-Medicare Annual Wellness (AWV) 1942 [facility]-Infant/Child/Adol SDOH Screenings 1942 [facility]- SDOH Screenings 1960 [facility]-Adult SDOH Screenings 1960 [facility]-DTaP,Tdap,and Td Vaccines (1 - Tdap) 1961 [facility]-Pneumococcal Vaccine: 50+ Years (1 of 1 - PCV) 1992 [facility]-Zoster Vaccines (1 of 2) 1992 [facility]-RSV Vaccine: 60+ Years or (1 - 1-dose 75+ series) 2017 [id number] Vaccine (3 - 2023- season) 2023 06/13/2020, [...] to complete this topic Insurance [place]AE[place] [id number] [place] [address] A[employer] Care Teams Senior Information Security Architect Relationship Specialty Start Date End Date Allen Love MD [address] [place] [address] PCP - General 08/17/20
== END 2024-11-07 23:59 | disposition home or self-care (01) ==
LOC: RT 11:32
PROVIDERS: PCP Internal Medicine Adolescent Medicine; Visit Provider Physician Assistant
DX: I48.91 Unspecified atrial fibrillation (principal); I48.92 Unspecified atrial flutter; I49.1 Atrial premature depolarization; I47.19 Other supraventricular tachycardia; I49.3 Ventricular premature depolarization; I25.10 Atherosclerotic heart disease of native coronary artery without angina pectoris; I49.5 Sick sinus syndrome
CPT/HCPCS: 93270; 93272

== ENCOUNTER 2024-11-22 08:31 | Outpatient (CLI) | payer MEDICARE, SELFPAY ==
--- NOTE | 2024-11-22 08:45 | CA_ITS ---
APPROVED REPORT EXAM: Limited 2D Echocardiogram Brick Tender: Lolly Ambrosio CRT Ht: 5 ft 5 in Wt: 156lbs BSA: 1.78 BP: 132/45 mmHg Indications: afib, sob pericardial effusion chronic Other Information Study Quality: Fair Conclusion This is a limited TTE to evaluate for pericardial effusion. Limited windows are obtained. There is a small sized, circumferential pericardial effusion present. The largest pocket measures 0.5 cm in diastole. No clear echo indications of tamponade. No evidence of chamber collapse. IVC is normal in size and collapsibility. In the setting of pericardial effusion, limited TTE evaluations are suggested. Clinical correlation is required. Electronically signed by : Carol Laguerre MD 11/22/2024 13:08:49
--- OUTSIDE RECORDS SUMMARY | 2024-11-22 08:57 | XMS_ITS | Clinical Summary ---
Author Organization [facility] Address [address] [place] [address] Care Team Providers Care Yarn Twister Name Role Phone Allen Love MD Primary Care Provider [phone] Allergies Active Allergy Reactions Criticality Noted Date [...] or (1 - 1-dose 75+ series) 2017 [id number] Vaccine (3 - 2023- season) 2023 06/13/2020, [...] to complete this topic Insurance [place]NA BAEZ [id number] [place] [address] AETNA Care Teams Yarn Twister Relationship Specialty Start Date End Date Allen Love MD [address] [place] [address] PCP - General 08/17/20
--- OUTSIDE RECORDS SUMMARY | 2024-11-22 08:57 | XMS_ITS | Clinical Summary ---
Author Organization [facility] Address [address] [place] [phone] Phone Care Team Providers Care Finish Filer Name Role Phone Tim Bansal MD Unavailable [ ] Conditions or Problems Problem Name Problem Code Onset Date Status Entry Date Provider Comment Standard Description Annotate Benign Essential Hypertension 71536640 (SNOMED CT) Active Daxa Cee Benign hypertension C. Difficile colitis 986543687 (SNOMED CT) Active Daxa Cee Clostridium difficile colitis Medications Medication Instructions Start Date Stop Date Generic Name NDC Provider CVS OMEPRAZOLE 20 MG TBEC QD OMEPRAZOLE [id number] Sharmila Marin ATENOLOL 50 MG TABS QD ATENOLOL [id number] Sharmila Marin VANCOCIN HCL 125 MG ORAL CAPSULE QID VANCOMYCIN HCL 49783378305 Sharmila Marin Medications Administered No information available. 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 Procedures No information available. Vital Signs No information available. Immunizations No information available. Advance Directives No information available.
== END 2024-11-22 23:59 | disposition home or self-care (01) ==
LOC: RT 08:32
PROVIDERS: PCP Internal Medicine Adolescent Medicine; Visit Provider Physician Assistant
DX: I31.39 Other pericardial effusion (noninflammatory) (principal); I11.9 Hypertensive heart disease without heart failure; I48.91 Unspecified atrial fibrillation; I25.10 Atherosclerotic heart disease of native coronary artery without angina pectoris; I49.5 Sick sinus syndrome
CPT/HCPCS: 93308

== ENCOUNTER 2024-11-22 09:05 | Observation (INO) | payer MEDICARE, SELFPAY ==
[2024-11-22] VITALS (13 sets, daily range): BP systolic 91–161; BP diastolic 48–96; PULSE 52–130; RESP 11–20; TEMP 36.6–37; O2SAT 94–98; BMI 25.7
--- NOTE | 2024-11-22 09:07 | ECG_ITS ---
APPROVED REPORT Exam: Resting ECG HR:137 bpm ECG Measurements Heart Rate 137 AXES QRSd 78 QRS 67 QT 242 T 92 QTc 322 Conclusion Atrial fibrillation with rapid ventricular response Normal axis Normal intervals No STEMI Electronically signed by : Avila Yu, 11/22/2024 16:39:43
--- NOTE | 2024-11-22 09:13 | XR_ITS ---
FINAL REPORT CLINICAL HISTORY: Nonspecific chest pain COMPARISON: 03/05/2023 FINDINGS: The heart size is mildly enlarged. The mediastinum is normal. There is no focal infiltrate or edema. There are no pleural effusions. There is no pneumothorax. There is no osseous abnormality. IMPRESSION: No acute cardiopulmonary process Reviewed, Interpreted and Dictated by Salbador Luther MD Transcribed by Karina Lucero Authenticated and [facility]
[2024-11-22 09:22] LABS: Hemoglobin 15.0 g/dL (12.2-16.2); Red Blood Count 5.05 M/mm3 (4.20-5.40); White Blood Count 7.6 K/mm3 (4.8-10.8)
[2024-11-22 09:23] LABS: Hematocrit 47.1 % (37.0-47.0); Immature Granulocytes % 0.1 %; Mean Corpuscular HGB Conc 31.8 g/dL (31.8-35.4); Mean Corpuscular Hemoglobin 29.7 pg (27.0-31.2); Mean Corpuscular Volume 93.3 fl (81-99); Nucleated Red Blood Cells % 0 %; Platelet Count 560 K/mm3 (142-424); Red Cell Distribution Width-SD 48.1 fL
--- OUTSIDE RECORDS SUMMARY | 2024-11-22 09:29 | XMS_ITS | Clinical Summary ---
Author Organization [facility] Address [address] [place] [phone] Phone Care Team Providers Care Escort Patients Name Role Phone Tim Bansal MD Unavailable [ ] Conditions or Problems Problem Name Problem Code Onset Date Status Entry Date Provider Comment Standard Description Annotate Benign Essential Hypertension [id number] (SNOMED CT) Active Daxa Cee Benign hypertension C. Difficile colitis 139573507 (SNOMED CT) Active Daxa Cee Clostridium difficile colitis Medications Medication Instructions Start Date Stop Date Generic Name NDC Provider CVS OMEPRAZOLE 20 MG TBEC QD OMEPRAZOLE [id number] Sharmila Marin ATENOLOL 50 MG TABS QD ATENOLOL [id number] Sharmila Marin VANCOCIN HCL 125 MG ORAL CAPSULE QID VANCOMYCIN HCL 84776543226 Sharmila Marin Medications Administered No information available. Allergies, Adverse Reactions, Alerts Allergy Name Reaction Description Start Date Severity Statu s Provider FLAGYL Critical Active Sharmila M addox SENSI-CARE SEPTI-SOFT Critical Active Sharmila Marin AMOXICILLIN Critical Active Sharmila Marin Results Date Name Value Unit Range Flag Description Clinical Lists Update: Prelo ad SMOK STATUS Never smoker Toba account liaison smoking status Plan of Care No information available. Procedures No information available. Vital Signs No information available. Immunizations No information available. Advance Directives No information available.
--- OUTSIDE RECORDS SUMMARY | 2024-11-22 09:29 | XMS_ITS | Clinical Summary ---
Author Organization [facility] Address [address] [place] [address] Care Team Providers Care Polisher Balance Screwhead Name Role Phone Allen Love MD Primary Care Provider [phone] Allergies Active Allergy Reactions Criticality Noted Date [...] or (1 - 1-dose 75+ series) 2017 [id number] Vaccine (3 - 2023- season) 2023 06/13/2020, [...] to complete this topic Insurance [place]NA BAEZ [id number] [place] [address] AETNA Care Teams Polisher Balance Screwhead Relationship Specialty Start Date End Date Allen Love MD [address] [place] [address] PCP - General 08/17/20
[2024-11-22] MEDS: ASPIRIN 325MG TABLET 325 MG PO (09:30)
[2024-11-22 09:37] LABS: Activated Partial Thrombo Time 37.6 seconds (22.8-30.6); INR 1.44 (0.9-1.1); Prothrombin Time 15.6 seconds (10.1-12.5)
[2024-11-22 09:46] LABS: Albumin Level 4.6 g/dl (3.5-5.0); Chloride 106 mmol/L (98-107); Potassium 4.4 mmoL/L (3.5-5.1); Sodium 141 mmol/L (136-145)
[2024-11-22 09:48] LABS: Blood Urea Nitrogen 18 mg/dl (7-17); Creatinine Clearance Estimated 48 mL/min (50-200); Creatinine,Serum 0.80 mg/dl (0.52-1.04); Estimated Glomerular Filt Rate 69 ml/min (>60); GFR (African American) 83 ML/MIN (>60)
[2024-11-22 09:49] LABS: Alanine Aminotransferase 21 U/L (12-78); Albumin/Globulin Ratio 1.6 (1.1-1.8); Alkaline Phosphatase 61 U/L (38-126); Anion Gap 11.4 mEq/L (5-15); Aspartate Amino Transferase 35 U/L (14-36); Bilirubin,Total 1.0 mg/dl (0.2-1.3); Calcium 9.1 mg/dl (8.4-10.2); Carbon Dioxide 28 mmol/L (22.0-30.0); Globulin 2.8 g/dL (1.3-3.2); Glucose 117 mg/dl (74-100); Lipase 130 U/L (23-300); Total Protein,Serum 7.4 g/dl (6.3-8.2)
[2024-11-22 09:58] LABS: NT Pro Brain Natriuretic Pep. 1340 pg/mL (0-450)
[2024-11-22 10:03] LABS: Troponin I < 0.01 ng/ml (0.00-0.034)
--- NOTE | 2024-11-22 10:07 | HMH.EDCP ---
Discharge Plan Disposition Patient Disposition: Admitted Condition: Fair Clinical Impressions Clinical Impression: Atrial fibrillation with RVR, James-tachy syndrome Discharge ED Provider: Avila Yu General Chief Complaint: Chest Pain Stated Complaint: A-fib; back pain Time Seen by Provider: 11/22/24 09:12 Mode of Arrival: Wheelchair Source of Information: Patient Description of Symptoms (Recalled from ER Triage Doc. by RN): pt was getting an echo done and was noted to be in afib with a pericardial effusion, pt has hx of afib and is on xarelto and sotalol History of Present Illness HPI narrative: This is an 84-year-old female patient, with past medical history of hypertension, hyperlipidemia, CAD, and atrial fibrillation on sotalol and Xarelto, who is presenting to the emergency department today for evaluation of atrial fibrillation with rapid ventricular response. Patient was being evaluated in the clinic today by Mr. Juan Diego Rhodes who stated that she was going to be admitted to the hospital for an echocardiogram. He found that her heart rate was elevated between 130 and 140 with an irregularly irregular rhythm and subsequently diverted her here to the ER for further management. Patient tells me that she has had electrical cardioversions multiple times in the past have been unsuccessful. She woke up this morning feeling weak and having palpitations with discomfort in her chest/abdomen. She states that this is how she feels every time that she is in atrial fibrillation with rapid ventricular response. On review of the patient's prior cardiology notes they state that she has previously been intolerant to diltiazem and higher doses of metoprolol due to bradycardia and she is also intolerant to amiodarone which is why she is now on sotalol. Their current plan is to have her referred to the [facility] electrophysiology clinic to discuss need for pacemaker. Related Data Home Medications ?Medication ?Instructions ?Recorded ?Confirmed omeprazole 20 mg tablet,delayed 20 mg PO DAILY 03/17/20 11/22/24 release cholecalciferol (vitamin D3) 25 25 mcg PO DAILY 11/14/20 11/22/24 mcg (1,000 unit) capsule cetirizine 10 mg tablet (Zyrtec) 5 mg PO HS 02/04/24 11/22/24 sotalol 120 mg tablet 60 mg PO BID 11/22/24 11/22/24 Previous Rx's ?Medication ?Instructions ?Recorded rivaroxaban 20 mg tablet (Xarelto) 20 mg PO QPMWITHMEAL #90 tabs 05/31/24 atorvastatin 40 mg tablet 40 mg PO HS #90 tabs 10/10/24 Allergies Allergy/AdvReac Type Severity Reaction Status Date / Time amoxicillin Allergy Severe Unknown Verified 11/07/24 10:43 allergy reaction metronidazole (From Flagyl) Allergy Severe Unknown Verified 11/07/24 10:43 allergy reaction protectives, O.U. (From Allergy Severe Unknown Verified 11/07/24 10:43 Sensi-Care (foam)) allergy reaction Penicillins Allergy Intermediate EDEMA Verified 11/07/24 10:43 apixaban (From Eliquis) Allergy Mild Rash Verified 11/07/24 10:43 Sulfa (Sulfonamide Allergy Unknown Unknown Verified 11/07/24 10:43 Antibiotics) (SULFA allergy (SULFONAMIDE ANTIBIOTICS)) reaction adhesive tape Allergy Unknown Verified 11/07/24 10:43 allergy reaction amiodarone AdvReac Mild GI UPSET Verified 11/07/24 10:43 acetaminophen AdvReac Nausea Verified 11/07/24 10:43 PFSH PFSH Disclaimer: The information contained in this section may have been updated after the patient was seen, as this information can be updated by other users. Medical History (Updated 11/22/24 @ 17:16 by Avila Yu DO) Tachy-james syndrome Shortness of Breath Tingling of face Visual disturbance Tinnitus Headache COVID-19 Diarrhea Arthritis Kidney stones Skin cancer A-fib Arrhythmia GERD (gastroesophageal reflux disease) HTN (hypertension) Osteoporosis HLD (hyperlipidemia) Atherosclerotic cardiovascular disease CAD (coronary artery disease) Surgical History Hx of local excision of skin lesion History of cardiac catheterization History of tonsillectomy Family History Mother Cancer Father Cancer Other No significant family history Social History Smoking Status: Never smoker alcohol intake: never substance use type: denies use current occupational status: retired Travel in the last 8 weeks?: None household members: spouse housing: house 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 caffeine: No Have you lived/traveled outside US in past 30 days?: No Contact w/someone who lives/traveled outside US past 30 days?: No Exposure to someone with infectious disease in past 14 days?: No Do you have a fever (greater than 100.4 F or 38 C)?: No Have you tested positive for COVID-19?: No Exposed to someone with COVID-19 in past 14 days?: No Do you have a sore throat?: No Do you have a cough?: No Do you have any weakness?: No Do you have any diarrhea?: No Are you experiencing any unusual bleeding?: No Do you have any muscle aches/pain?: No Do you have any abdominal pain?: No Are you experiencing loss of taste or smell?: No Other Medical History Have you received the Flu Vaccine for this season: No Have you received the Pneumonia Vaccine: Yes ROS Obtained: Yes Systems reviewed as appropriate & no additional complaints except as documented Physical Exam General General appearance: other (See MDM) Respiratory Respiratory exam: Present other (See MDM) Cardiovascular Cardiovascular exam: Present other (See MDM) Neurological Exam Neurological exam: Present other (See MDM) HEART Score HEART Score HEART Score assessment performed?: Yes History (anamnesis): Slightly suspicious ECG: Normal Age: >65 years Risk factors: 3 or more risk factors Troponin: </= normal limit HEART Score: 4 Critical Care Critical Care Time Critical Care Time: Yes Attestation: On 11/22/24, the high probability of a clinically significant, sudden or life threatening deterioration of the following system(s) required my full and direct attention, intervention and personal management. The time I documented below is in addition to time spent performing reported procedures but includes the following listed in this critical care notation. Total Time Total Critical Care Time: 80 Medical Decision Making Medical Records Medical records reviewed: Yes I reviewed the patient's medical records. Rod Inquiry Pt receiving controlled substance: No Rod was queried for this patient: No Vital Signs Vital Signs: 11/22/24 09:10 11/22/24 09:16 11/22/24 09:21 Temperature 98.6 F Temperature Source Oral Pulse Rate 114 H 92 H Pulse Rate [Right Radial] 130 H Respiratory Rate 18 13 Blood Pressure 161/96 H Blood Pressure [Right Arm] 161/96 H Blood Pressure Mean [Right Arm] 117 02 Sat by Pulse Oximetry 97 97 Oxygen Delivery Method Room Air 08/19/25 09:31 11/22/24 10:00 11/22/24 10:30 Temperature Temperature Source Pulse Rate 120 H 124 H 115 H Pulse Rate [Right Radial] Respiratory Rate 17 12 14 Blood Pressure 138/62 123/87 136/89 Blood Pressure [Right Arm] Blood Pressure Mean [Right Arm] 02 Sat by Pulse Oximetry 94 L 95 95 Oxygen Delivery Method 11/22/24 11:02 11/22/24 11:31 11/22/24 12:12 Temperature Temperature Source Pulse Rate 127 H 127 H Pulse Rate [Right Radial] Respiratory Rate 11 L 12 Blood Pressure 159/83 H 119/83 Blood Pressure [Right Arm] Blood Pressure Mean [Right Arm] 02 Sat by Pulse Oximetry 96 95 97 Oxygen Delivery Method Room Air 11/22/24 12:20 Temperature 98.2 F Temperature Source Oral Pulse Rate 78 Pulse Rate [Right Radial] Respiratory Rate 20 Blood Pressure 91/48 L Blood Pressure [Right Arm] Blood Pressure Mean [Right Arm] 02 Sat by Pulse Oximetry Oxygen Delivery Method Room Air Lab Data Labs: Lab Results 11/22/24 09:15: WBC 7.6, RBC 5.05, Hgb 15.0, Hct 47.1 H, MCV 93.3, MCH 29.7, MCHC 31.8, RDW 14.0, Plt Count 560 H, MPV 10.9 H, Neut % (Auto) 68.7, Lymph % (Auto) 21.7, [place] % (Auto) 5.8, Eos % (Auto) 3.3, Baso % (Auto) 0.4, Neut # (Auto) 5.2, Lymph # (Auto) 1.6, [place] # (Auto) 0.4, Eos # (Auto) 0.3, Baso # (Auto) 0.0, PT 15.6 H, INR 1.44 H, APTT 37.6 H, Sodium 141, Potassium 4.4, Chloride 106, Carbon Dioxide 28, Anion Gap 11.4, BUN 18 H, Creatinine 0.80, Estimated Creat Clear 48, Estimated GFR 69, Est GFR ( Amer) 83, Glucose 117 H, Calcium 9.1, Total Bilirubin 1.0, AST 35, ALT 21, Alkaline Phosphatase 61, Troponin I < 0.01, NT-Pro-B Natriuret Pep 1340 H, Total Protein 7.4, Albumin 4.6, Globulin 2.8, Albumin/Globulin Ratio 1.6, Lipase 130 11/22/24 09:15 11/22/24 09:15 Response Orders (Tests/Meds): ED MEDICATIONS Generic Name Dose Route Start Last Admin Trade Name Janusz PRN Reason Stop Dose Admin Acetaminophen 650 mg 11/22/24 12:08 Acetaminophen 325mg Tab PO 12/22/24 12:07 Q6HP PRN Fever or Mild Pain (1-3) Hydrocodone Bitart/Acetaminophen 1 tab 11/22/24 12:08 Hydrocodone/Apap 5/325 Mg Tablet PO 12/22/24 12:07 Q6HP PRN Moderate Pain (4-6) Atorvastatin Calcium 40 mg 11/22/24 21:00 Atorvastatin 40mg Tablet PO 12/22/24 20:59 HS AUDELIA Diltiazem HCl 100 mg/ Sodium 100 mls @ 5 mls/hr 11/22/24 12:00 11/22/24 14:38 Chloride IV 12/22/24 11:59 Not Given .Q20H AUDELIA Protocol 5 MG/HR Non-Formulary Medication 5 mg 11/22/24 21:00 Cetirizine [Zyrtec] PO 12/22/24 20:59 HS AUDELIA Ondansetron HCl 4 mg 11/22/24 12:08 Ondansetron 4mg/2ml Vial IV 12/22/24 12:07 Q6HP PRN Nausea Pantoprazole Sodium 40 mg 11/22/24 21:00 Pantoprazole 40mg Tablet PO 12/22/24 20:59 HS AUDELIA Sodium Chloride 10 ml 11/22/24 12:14 Sodium Chloride 0.9% 10ml Flush Syringe IV 12/22/24 12:13 NEEDED PRN Maintain IV Site Discontinued Medications Generic Name Dose Route Start Last Admin Trade Name Janusz PRN Reason Stop Dose Admin Aspirin 325 mg 11/22/24 09:13 11/22/24 09:30 Aspirin 325mg Tablet PO 11/22/24 09:14 325 mg ONCE ONE Administration Diltiazem HCl 10 mg 11/22/24 11:38 11/22/24 11:58 Diltiazem 25mg/5ml Vial IV 11/22/24 11:39 10 mg ONCE ONE Administration Diphenhydramine HCl 50 mg 11/22/24 15:56 Diphenhydramine 50mg/Ml Vial IV 11/22/24 15:57 ONCE ONE Metoprolol Tartrate 5 mg 11/22/24 10:45 11/22/24 10:50 Metoprolol Tartrate 5mg/5ml Vial IV 11/22/24 10:46 5 mg ONCE ONE Administration ORDERS Category Date Time Status CXR --portable [XR chest portable] Stat Exams 11/22/24 09:13 Completed POCUS Point of Care (ER Only) Stat Exams 11/22/24 10:08 Completed BNP [NT Pro Brain Natriuretic Pep.] Stat Lab 11/22/24 09:15 Completed CBC w/Auto Diff [Complete Blood Count Auto Diff] Stat Lab 11/22/24 09:15 Completed CMP [Comprehensive Metabolic Panel] Stat Lab 11/22/24 09:15 Completed Lipase Stat Lab 11/22/24 09:15 Completed PT/PTT Stat Lab 11/22/24 09:15 Completed Prothrombin Time INR Stat Lab 11/22/24 09:15 Completed Troponin I Q3H Lab 11/22/24 12:12 Completed Troponin I Q3H Lab 11/22/24 15:30 Ordered Troponin I Stat Lab 11/22/24 09:15 Completed ECG Data Tracing #1: Attestation: I reviewed this ECG and interpreted as documented below: ECG Narrative: EKG personally interpreted by me demonstrates atrial fibrillation with rapid ventricular response at a rate of 137 bpm, normal axis, narrow QRS, no QTc prolongation. No ST ovation or depression. No overt signs of ischemia. QTc is 322 ms. MDM Narrative Medical Decision Narrative: In summary, this is an 84-year-old female patient who is presenting to the emergency department today for evaluation of weakness as well as abdominal discomfort with palpitations which she feels to be consistent with atrial fibrillation. Comorbidities include an extensive history of atrial fibrillation in which she experiences profound hypotension and bradycardia in response to diltiazem and high-dose metoprolol, as well as intolerance to amiodarone. She is currently on sotalol and she is now currently in atrial fibrillation with rapid ventricular response indicating treatment failure with sotalol. On initial evaluation of the patient they were resting comfortably in no acute distress and nontoxic in appearance. They are hemodynamically stable, saturating well room air, and are neurologically intact. She has a GCS of 15. On physical examination her lungs are clear to auscultation bilaterally. Her heart rate is irregularly irregular on auscultation. Abdominal exam is benign. She appears well-hydrated and well-perfused. Differential diagnosis to include electrolyte derangement, acute kidney injury, A-fib with RVR, ACS/AL, pneumothorax, pulmonary edema, heart failure, among others. I have a low suspicion for infectious etiology of her symptoms as she has not recently had any infectious symptoms including cough, production of phlegm, abdominal pain, nausea, vomiting, diarrhea, or urinary symptoms. Workup was initiated with an EKG as well as hematologic labs and a chest x-ray. Labs were personally interpreted by me and demonstrate no actionable abnormality. She has no electrolyte derangement or evidence of acute kidney injury. Her proBNP is significantly lower from prior. Troponin and delta troponin are both nonischemic and less than 0.01. She has no evidence of anemia to explain her tachyarrhythmia today. Chest x-ray was personally interpreted by me and demonstrates no lobar consolidation or pleural effusion. Official radiology read is in agreement and states that there is no acute abnormality. Patient's EKG was consistent with atrial fibrillation with rapid ventricular response. Patient maintained hemodynamic stability despite this rhythm. I did initially attempt to treat the patient with 5 mg of IV metoprolol and her rate did not resolve. At this point I had an interactive discussion with Dr. Douglas of the cardiology service. We discussed the fact that she has been resistant to multiple treatments for her atrial fibrillation with RVR and my concern that she may only benefit from a pacemaker moving forward. He agrees with my assessment, especially in the setting of multiple failed treatments and now failure of sotalol. He would like to the patient mid to the hospital for pacemaker installation. I have shared this with the patient and she is amenable to our plan. Given the fact that she has not currently responded to metoprolol, we decided to start the patient on a diltiazem bolus followed by diltiazem drip. We did administer a 10 mg bolus of diltiazem given her history of sensitivity to this medication. During this bolus we had the patient on continuous oximetry and telemetry with recurrent blood pressure monitoring. After administration of this bolus she did develop relative bradycardia with hypotension. Therefore we did not start the patient on a drip. I ultimately had an interactive discussion with the internal medicine service who agreed to evaluate the patient in the emergency department. After our discussion and their evaluation have agreed to admit the patient to their service and except primary responsibility of the patient moving forward
--- NOTE | 2024-11-22 10:35 | PC.NURSE ---
DEBORA RUGGIERO at with portable US
[2024-11-22] MEDS: METOPROLOL TARTRATE 5MG/5ML VIAL 5 MG IV (10:50)
--- NOTE | 2024-11-22 10:58 | PC.NURSE ---
Dr Yu speaking w/ J LUAN Rhodes via phone
--- NOTE | 2024-11-22 10:58 | PC.NURSE ---
Dr Yu asked for Juan Diego Rhodes in Cardiology. He was with a patient and would call back
--- NOTE | 2024-11-22 10:59 | PC.NURSE ---
Juan Diego Rhodse called back from cardiology and was speaking with Dr Yu at this time
--- NOTE | 2024-11-22 12:03 | PC.NURSE ---
Spoke w/ Dr Yu, pt's HR after 10 mg dilt IVP decreased to 70-80's. Dilt gtt not started at this time. Will hold and reassess. Pt resting in bed, no needs @ this time. Call tena w/in reach.
--- NOTE | 2024-11-22 12:13 | HMH.PHAINT1 ---
Pharmacy Intervention Comments: MEDICATION RECONCILIATION COMPLETED ON PATIENT USING EXTERNAL FILL HISTORY FROM PHARMACY AND LIST FROM CARDIOLOGY OFFICE. -CLARENCE KIM, QUAND
--- NOTE | 2024-11-22 12:26 | P.HP_ITS ---
<Statement entered by Joshua Espinoza MD - 11/22/24 17:13> Rounded on patient after nurse practitioner. Personally examined and interviewed patient. Agree with exam findings and care plan as documented. History of Present Illness *Admission Date: 11/22/24 *Reason for visit:: A-fib with RVR *History of present illness: Ms. Manning is a 84-year-old female who presented for an outpatient cardiology workup today due to persistent atrial fibrillation. She was found to be in A- fib RVR and was directed to the emergency department for further evaluation and workup. She has a primary medical history of A-fib, hypertension, CAD, bradycardia, tachybradycardia syndrome. Workup in the ED revealed the patient was in A-fib with RVR rate between 130-140. She was given IV metoprolol which did not change her rate, she was then given a diltiazem bolus, at which time her rate became controlled. After approximately 1 hour she converted back to normal sinus rhythm, rate in the 50s. She did not require a diltiazem drip. She states that she has been being worked up for a possible ablation. She is currently taking sotalol 60 mg twice daily. She has been on multiple other medications for her A-fib (diltiazem, amiodarone, metoprolol) without success. She states that the medication either does not work and she becomes tachycardic or works too well and she becomes bradycardic. Discussion has been had for pacemaker placement but patient preferred continuing with the workup for possible ablation so she could come off of the medication. After speaking with cardiology and the ED provider decision was made to admit the patient for further monitoring of her atrial fibrillation and potential pacemaker placement pending discussion with patient and her family. [facility] Disclaimer: The information contained in this section may have been updated after the patient was seen, as this information can be updated by other users. Medical History (Updated 11/22/24 @ 16:56 by Frances Rhodes APRN) Tachy-carlos syndrome Shortness of Breath Tingling of face Visual disturbance Tinnitus Headache COVID-19 Diarrhea Arthritis Kidney stones Skin cancer A-fib Arrhythmia GERD (gastroesophageal reflux disease) HTN (hypertension) Osteoporosis HLD (hyperlipidemia) Atherosclerotic cardiovascular disease CAD (coronary artery disease) Surgical History Hx of local excision of skin lesion History of cardiac catheterization History of tonsillectomy Family History Mother Cancer Father Cancer Other No significant family history Social History Smoking Status: Never smoker alcohol intake: never substance use type: denies use current occupational status: retired Travel in the last 8 weeks?: None household members: spouse housing: house 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 caffeine: No Have you lived/traveled outside US in past 30 days?: No Contact w/someone who lives/traveled outside US past 30 days?: No Exposure to someone with infectious disease in past 14 days?: No Do you have a fever (greater than 100.4 F or 38 C)?: No Have you tested positive for COVID-19?: No Exposed to someone with COVID-19 in past 14 days?: No Do you have a sore throat?: No Do you have a cough?: No Do you have any weakness?: No Do you have any diarrhea?: No Are you experiencing any unusual bleeding?: No Do you have any muscle aches/pain?: No Do you have any abdominal pain?: No Are you experiencing loss of taste or smell?: No Other Medical History Have you received the Flu Vaccine for this season: No Have you received the Pneumonia Vaccine: Yes Review of Systems Review of Systems Review of systems:: pertinent systems reviewed and negative unless documented below Constitutional Constitutional: Reports system reviewed and no additional complaints, except as documented, Reports fatigue and Reports lethargy Eyes Eyes: Reports system reviewed and no additional complaints, except as documented ENT Ears, Nose, Mouth, and Throat: Reports system reviewed and no additional complaints, except as documented *Cardiovascular Cardiovascular: Reports system reviewed and no additional complaints, except as documented, Reports dyspnea, Reports dyspnea on exertion, Reports palpitations and Reports rapid heart rate *Respiratory Respiratory: Reports system reviewed and no additional complaints, except as documented, Reports dyspnea and Reports dyspnea on exertion *Gastrointestinal Gastrointestinal: Reports system reviewed and no additional complaints, except as documented *Genitourinary Genitourinary: Reports system reviewed and no additional complaints, except as documented *Musculoskeletal Musculoskeletal: Reports system reviewed and no additional complaints, except as documented Integumentary/Breasts Skin/Breast: Reports system reviewed and no additional complaints, except as documented *Neurologic Neurologic: Reports system reviewed and no additional complaints, except as documented Psychiatric Psychiatric: Reports system reviewed and no additional complaints, except as documented Endocrine Endocrine: Reports system reviewed and no additional complaints, except as documented, Reports fatigue and Reports palpitations Hematologic/Lymphatic Hematologic/Lymphatic: Reports system reviewed and no additional complaints, except as documented Allergic/Immunologic Allergic/Immunologic: Reports system reviewed and no additional complaints, except as documented Meds Home Medications and Allergies Home Medications ?Medication ?Instructions ?Recorded ?Confirmed ?Type omeprazole 20 mg tablet,delayed 20 mg PO DAILY 0 11/22/24 History release cholecalciferol (vitamin D3) 25 25 mcg PO DAILY 11/22/24 History mcg (1,000 unit) capsule cetirizine 10 mg tablet (Zyrtec) 5 mg PO HS 02/04/24 0 11/22/24 History rivaroxaban 20 mg tablet (Xarelto) 20 mg PO QPMWITHMEA L #90 tabs 05/31/24 11/22/24 Rx atorvastatin 40 mg tablet 40 mg PO HS #90 tabs 5 11/22/24 Rx sotalol 120 mg tablet 60 mg PO BID 11/22/24 History New Prescriptions to Start Prescriptions: Allergies Allergy/AdvReac Type Severity Reaction Status Date / Time amoxicillin Allergy Severe Unknown Verified 11/07/24 10:43 allergy reaction metronidazole (From Flagyl) Allergy Severe Unknown Verified 11/07/24 10:43 allergy reaction protectives, O.U. (From Allergy Severe Unknown Verified 11/07/24 10:43 Sensi-Care (foam)) allergy reaction Penicillins Allergy Intermediate EDEMA Verified 11/07/24 10:43 apixaban (From Eliquis) Allergy Mild Rash Verified 11/07/24 10:43 Sulfa (Sulfonamide Allergy Unknown Unknown Verified 11/07/24 10:43 Antibiotics) (SULFA allergy (SULFONAMIDE ANTIBIOTICS)) reaction adhesive tape Allergy Unknown Verified 11/07/24 10:43 allergy reaction amiodarone AdvReac Mild GI UPSET Verified 11/07/24 10:43 acetaminophen AdvReac Nausea Verified 11/07/24 10:43 Exam Data for Last 24 hours Vital signs and Labs for Last 24 Hours: Temp Pulse Resp BP Pulse Ox O2 Del Method 98.2 F 78 20 91/48 L 95 Room Air 11/22/24 12:20 11/22/24 12:20 11/22/24 12:20 11/22/24 12:20 11/22/24 11:31 11/22/24 12:20 Laboratory Results - last 24 hr 11/22/24 09:15: WBC 7.6, RBC 5.05, Hgb 15.0, Hct 47.1 H, MCV 93.3, MCH 29.7, MCHC 31.8, RDW 14.0, Plt Count 560 H, MPV 10.9 H, Neut % (Auto) 68.7, Lymph % (Auto) 21.7, [place] % (Auto) 5.8, Eos % (Auto) 3.3, Baso % (Auto) 0.4, Neut # (Auto) 5.2, Lymph # (Auto) 1.6, [place] # (Auto) 0.4, Eos # (Auto) 0.3, Baso # (Auto) 0.0, PT 15.6 H, INR 1.44 H, APTT 37.6 H, Sodium 141, Potassium 4.4, Chloride 106, Carbon Dioxide 28, Anion Gap 11.4, BUN 18 H, Creatinine 0.80, Estimated Creat Clear 48, Estimated GFR 69, Est GFR ( Amer) 83, Glucose 117 H, Calcium 9.1, Total Bilirubin 1.0, AST 35, ALT 21, Alkaline Phosphatase 61, Troponin I < 0.01, NT-Pro-B Natriuret Pep 1340 H, Total Protein 7.4, Albumin 4.6, Globulin 2.8, Albumin/Globulin Ratio 1.6, Lipase 130 I & O for Last 24 hours: Intake & Output 11/19/24 11/20/24 11/21/24 11/22/24 23:59 23:59 23:59 23:59 Weight 70.307 kg Constitutional Constitutional: no acute distress *Routine HEENT Exam Head: Present normocephalic Eye: Present EOMI and PERRL ENT: Present mucous membranes moist *Routine Neck Exam Neck: Present supple; Absent lymphadenopathy *Routine Respiratory Exam Respiratory: Present CTA bilaterally *Routine Cardiovascular Exam Cardiovascular: Present Normal S1, Normal S2 and bradycardia *Routine Abdominal Exam Abdominal: Present soft and normoactive bowel sounds; Absent tenderness *Routine Rectal Exam Rectal:: deferred *Routine Genitalia Exam Genitalia:: deferred *Routine Extremities Exam Extremities: Absent cyanosis, clubbing or edema *Routine Skin Exam Skin: Present warm; Absent rash *Routine Neurological Exam Neurological: Present alert and oriented X3 Assessment and Plan *Assessment and plan (1) Tachy-carlos syndrome: Status: Acute Category: Medical Code(s): I49.5 - Sick sinus syndrome (2) Atrial fibrillation with rapid ventricular response: Status: Acute Category: Medical Code(s): I48.91 - Unspecified atrial fibrillation (3) Hypertension: Status: Acute Qualifiers: Hypertension type: primary hypertension Qualified Code(s): I10 - Essential (primary) hypertension Category: Medical Code(s): I10 - Essential (primary) hypertension (4) HLD (hyperlipidemia): Status: Chronic Qualifiers: Hyperlipidemia type: mixed hyperlipidemia Qualified Code(s): E78.2 - Mixed hyperlipidemia Category: Medical Code(s): E78.5 - Hyperlipidemia, unspecified (5) Bradycardia, sinus: Status: Acute Category: Medical Code(s): R00.1 - Bradycardia, unspecified (6) GERD (gastroesophageal reflux disease): Status: Acute Category: Medical Code(s): K21.9 - Gastro-esophageal reflux disease without esophagitis Plan Ms. Manning is a 84-year-old female who presented for an outpatient cardiology workup today due to persistent atrial fibrillation. She was found to be in A- fib RVR and was directed to the emergency department for further evaluation and workup. She has a primary medical history of A-fib, hypertension, CAD, bradycardia, tachybradycardia syndrome. Workup in the ED revealed the patient was in A-fib with RVR rate between 130-140. She was given IV metoprolol which did not change her rate, she was then given a diltiazem bolus, at which time her rate became controlled. After approximately 1 hour she converted back to normal sinus rhythm, rate in the 50s. She did not require a diltiazem drip. She states that she has been being worked up for a possible ablation. She is currently taking sotalol 60 mg twice daily. She has been on multiple other medications for her A-fib (diltiazem, amiodarone, metoprolol) without success. She states that the medication either does not work and she becomes tachycardic or works too well and she becomes bradycardic. Discussion has been had for pacemaker placement but patient preferred continuing with the workup for possible ablation so she could come off of the medication. After speaking with cardiology and the ED provider decision was made to admit the patient for further monitoring of her atrial fibrillation and potential pacemaker placement pending discussion with patient and her family. Hospital medicine was consulted and I agreed to admit the patient for further monitoring, plan of care as follows: #Tachybradycardia syndrome #A-fib with RVR ? Patient presented with A-fib RVR to the emergency department, was treated with metoprolol and diltiazem IV. She has converted to sinus bradycardia at this time. Discussion was made with cardiology for possible pacemaker placement due to tachybradycardia syndrome. Patient has been intolerant to multiple beta- blockers, amiodarone, diltiazem in an outpatient setting. After discussion with Dr. Douglas and the cardiology team patient is agreeable to pacemaker placement, patient will be made n.p.o. after breakfast for procedure tomorrow. ?Patient has been getting a workup done for possible cardiac ablation for her atrial fibrillation. She is currently wearing a Holter monitor to track her A-f ib. ?Holding Xarelto in anticipation of pacemaker tomorrow. #Hypertension #Hyperlipidemia #Bradycardia ?Currently holding sotalol due to bradycardia. Will reevaluate tomorrow after pacemaker placement. ?Last lipid panel was 2023, will obtain lipid panel tomorrow morning. Continue atorvastatin 40 mg at bedtime. ?CBC, CMP, magnesium ordered for the a.m. #GERD: Continue omeprazole 20 mg daily. Cardiac diet, n.p.o. after breakfast Ambulate as tolerated VTE?contraindicated due to procedure
[2024-11-22 13:02] LABS: Troponin I < 0.01 ng/ml (0.00-0.034)
--- NOTE | 2024-11-22 16:00 | EXP.CARD.CON ---
History of Present Illness History of Present Illness Consult date: 11/22/24 Requesting physician: Joshua Espinoza Consult reason: atrial fibrillation Chief complaint: afib History of present illness: This is an 84-year-old female who presented to the emergency department after having an echocardiogram for atrial fibrillation with RVR. She states that she woke up this morning and knew she was in atrial fibrillation because she did not feel well. She states that when she is in atrial fibrillation she feels very weak and tired and short of breath. She states that her symptoms were more severe this time than they have been previously when she was in atrial fibrillation. Her heart rate was between 130 and 140 while getting her echocardiogram. Once she arrived to the emergency department she was in atrial fibrillation with RVR. She was treated with a diltiazem bolus and she rate controlled. The diltiazem drip was not started. Once she got into a room after being admitted to the hospital she did convert to sinus rhythm. She is currently in sinus rhythm. The patient has been intolerant of multiple medications for rate control due to bradycardia. She has been offered pacemaker on multiple occasions. She is now back in the hospital with tachybradycardia syndrome. She denies any chest pain or pressure. She states her shortness of breath has resolved. She denies any edema. She denies any fever, chills, nausea, vomiting, diarrhea. [facility] Disclaimer: The information contained in this section may have been updated after the patient was seen, as this information can be updated by other users. Medical History (Updated 11/22/24 @ 16:24 by Kathe Sher APRN) Tachy-carlos syndrome Shortness of Breath Tingling of face Visual disturbance Tinnitus Headache COVID-19 Diarrhea Arthritis Kidney stones Skin cancer A-fib Arrhythmia GERD (gastroesophageal reflux disease) HTN (hypertension) Osteoporosis HLD (hyperlipidemia) Atherosclerotic cardiovascular disease CAD (coronary artery disease) Surgical History Hx of local excision of skin lesion History of cardiac catheterization History of tonsillectomy Family History Mother Cancer Father Cancer Other No significant family history Social History Smoking Status: Never smoker alcohol intake: never substance use type: denies use current occupational status: retired Travel in the last 8 weeks?: None household members: spouse housing: house 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 caffeine: No Have you lived/traveled outside US in past 30 days?: No Contact w/someone who lives/traveled outside US past 30 days?: No Exposure to someone with infectious disease in past 14 days?: No Do you have a fever (greater than 100.4 F or 38 C)?: No Have you tested positive for COVID-19?: No Exposed to someone with COVID-19 in past 14 days?: No Do you have a sore throat?: No Do you have a cough?: No Do you have any weakness?: No Do you have any diarrhea?: No Are you experiencing any unusual bleeding?: No Do you have any muscle aches/pain?: No Do you have any abdominal pain?: No Are you experiencing loss of taste or smell?: No Review of Systems Review of Systems Review of systems:: pertinent systems reviewed and negative unless documented below Constitutional Constitutional: Reports system reviewed and no additional complaints, except as documented, Reports fatigue and Reports lethargy Eyes Eyes: Reports system reviewed and no additional complaints, except as documented ENT Ears, Nose, Mouth, and Throat: Reports system reviewed and no additional complaints, except as documented *Cardiovascular Cardiovascular: Reports system reviewed and no additional complaints, except as documented, Reports dyspnea, Reports dyspnea on exertion, Reports palpitations and Reports rapid heart rate *Respiratory Respiratory: Reports system reviewed and no additional complaints, except as documented, Reports dyspnea and Reports dyspnea on exertion *Gastrointestinal Gastrointestinal: Reports system reviewed and no additional complaints, except as documented *Genitourinary Genitourinary: Reports system reviewed and no additional complaints, except as documented *Musculoskeletal Musculoskeletal: Reports system reviewed and no additional complaints, except as documented Integumentary/Breasts Skin/Breast: Reports system reviewed and no additional complaints, except as documented *Neurologic Neurologic: Reports system reviewed and no additional complaints, except as documented Psychiatric Psychiatric: Reports system reviewed and no additional complaints, except as documented Endocrine Endocrine: Reports system reviewed and no additional complaints, except as documented, Reports fatigue and Reports palpitations Hematologic/Lymphatic Hematologic/Lymphatic: Reports system reviewed and no additional complaints, except as documented Allergic/Immunologic Allergic/Immunologic: Reports system reviewed and no additional complaints, except as documented Exam Data for Last 24 hours Vital signs and Labs for Last 24 Hours: Temp Pulse Resp BP Pulse Ox O2 Del Method 98.1 F 95 H 16 144/59 H 98 Room Air 11/22/24 14:00 11/22/24 14:00 11/22/24 14:00 11/22/24 14:00 11/22/24 14:00 11/22/24 15:00 Laboratory Results - last 24 hr 11/22/24 09:15: WBC 7.6, RBC 5.05, Hgb 15.0, Hct 47.1 H, MCV 93.3, MCH 29.7, MCHC 31.8, RDW 14.0, Plt Count 560 H, MPV 10.9 H, Neut % (Auto) 68.7, Lymph % (Auto) 21.7, [place] % (Auto) 5.8, Eos % (Auto) 3.3, Baso % (Auto) 0.4, Neut # (Auto) 5.2, Lymph # (Auto) 1.6, [place] # (Auto) 0.4, Eos # (Auto) 0.3, Baso # (Auto) 0.0, PT 15.6 H, INR 1.44 H, APTT 37.6 H, Sodium 141, Potassium 4.4, Chloride 106, Carbon Dioxide 28, Anion Gap 11.4, BUN 18 H, Creatinine 0.80, Estimated Creat Clear 48, Estimated GFR 69, Est GFR ( Amer) 83, Glucose 117 H, Calcium 9.1, Total Bilirubin 1.0, AST 35, ALT 21, Alkaline Phosphatase 61, Troponin I < 0.01, NT-Pro-B Natriuret Pep 1340 H, Total Protein 7.4, Albumin 4.6, Globulin 2.8, Albumin/Globulin Ratio 1.6, Lipase 130 11/22/24 12:12: Troponin I < 0.01 I & O for Last 24 hours: Intake & Output 11/19/24 11/20/24 11/21/24 11/22/24 23:59 23:59 23:59 23:59 Intake Total 40 / 40 Output Total 350 / 350 Balance -310 / -310 Weight 155 lb Constitutional Constitutional: no acute distress and average body habitus *Routine HEENT Exam Head: Present normocephalic and atraumatic ENT: Present mucous membranes moist *Routine Neck Exam Neck: Present supple, full ROM and normal carotid upstroke; Absent JVD, carotid bruit or lymphadenopathy *Routine Respiratory Exam Respiratory: Present CTA bilaterally, normal respiratory effort, able to speak in complete sentences and symmetric chest movement *Routine Cardiovascular Exam Cardiovascular: Present Normal S1, Normal S2 and bradycardia; Absent murmur or gallop *Routine Abdominal Exam Abdominal: Present soft and normoactive bowel sounds; Absent tenderness, distended or organomegaly *Routine Extremities Exam Extremities: Present full ROM, pulses intact and normal capillary refill; Absent cyanosis, clubbing or edema *Routine Skin Exam Skin: Present intact and warm; Absent erythema *Routine Neurological Exam Neurological: Present alert, oriented X3 and CN II-XII intact; Absent sensory deficit or motor deficit Routine Psychiatric Exam Psychiatric: Present normal affect Meds Home Medications and Allergies Home Medications ?Medication ?Instructions ?Recorded ?Confirmed ?Type omeprazole 20 mg tablet,delayed 20 mg PO DAILY 03/17/20 11/22/24 History release cholecalciferol (vitamin D3) 25 25 mcg PO DAILY 11/14/20 11/22/24 History mcg (1,000 unit) capsule cetirizine 10 mg tablet (Zyrtec) 5 mg PO HS 02/04/24 11/22/24 History rivaroxaban 20 mg tablet (Xarelto) 20 mg PO QPMWITHMEAL #90 tabs 05/31/24 11/22/24 Rx atorvastatin 40 mg tablet 40 mg PO HS #90 tabs 10/10/24 11/22/24 Rx sotalol 120 mg tablet 60 mg PO BID 11/22/24 11/22/24 History New Prescriptions to Start Prescriptions: Allergies Allergy/AdvReac Type Severity Reaction Status Date / Time amoxicillin Allergy Severe Unknown Verified 11/07/24 10:43 allergy reaction metronidazole (From Flagyl) Allergy Severe Unknown Verified 11/07/24 10:43 allergy reaction protectives, O.U. (From Allergy Severe Unknown Verified 11/07/24 10:43 Sensi-Care (foam)) allergy reaction Penicillins Allergy Intermediate EDEMA Verified 11/07/24 10:43 apixaban (From Eliquis) Allergy Mild Rash Verified 11/07/24 10:43 Sulfa (Sulfonamide Allergy Unknown Unknown Verified 11/07/24 10:43 Antibiotics) (SULFA allergy (SULFONAMIDE ANTIBIOTICS)) reaction adhesive tape Allergy Unknown Verified 11/07/24 10:43 allergy reaction amiodarone AdvReac Mild GI UPSET Verified 11/07/24 10:43 acetaminophen AdvReac Nausea Verified 11/07/24 10:43 Assessment and Plan *Assessment and plan (1) Tachy-carlos syndrome: Status: Acute Category: Medical Code(s): I49.5 - Sick sinus syndrome (2) Atrial fibrillation with rapid ventricular response: Status: Acute Category: Medical Code(s): I48.91 - Unspecified atrial fibrillation (3) Hypertension: Status: Acute Qualifiers: Hypertension type: primary hypertension Qualified Code(s): I10 - Essential (primary) hypertension Category: Medical Code(s): I10 - Essential (primary) hypertension (4) HHD (hypertensive heart disease): Status: Chronic Qualifiers: Heart failure presence: without heart failure Qualified Code(s): I11.9 - Hypertensive heart disease without heart failure Category: Medical Code(s): I11.9 - Hypertensive heart disease without heart failure (5) HLD (hyperlipidemia): Status: Chronic Qualifiers: Hyperlipidemia type: mixed hyperlipidemia Qualified Code(s): E78.2 - Mixed hyperlipidemia Category: Medical Code(s): E78.5 - Hyperlipidemia, unspecified (6) Bradycardia, sinus: Status: Acute Category: Medical Code(s): R00.1 - Bradycardia, unspecified Plan Plan: 1. The patient presented to the emergency department with atrial fibrillation with RVR. She was treated with diltiazem and is now in sinus bradycardia. The patient has tachybradycardia syndrome. Recommend permanent pacemaker placement due to her atrial fibrillation with RVR, sinus bradycardia and tachybradycardia syndrome. 2. Will plan to proceed with permanent pacemaker placement in the morning. The patient has been educated the risk and benefits of proceeding with permanent pacemaker placement. The patient verbalized understanding and is agreeable in proceeding with the procedure. 3. The patient will be n.p.o. after breakfast in the morning and preparation for permanent pacemaker placement. 4. Her blood pressure is acceptable at this time. 5. Her LDL goal is less than 100. Will get a lipid panel in the morning. 6. Stop sotalol due to her bradycardia. 7. Following permanent pacemaker placement tomorrow we will plan to start her on diltiazem for suppression of her atrial fibrillation. 8. Hold Xarelto in preparation for permanent pacemaker tomorrow. Will resume following permanent pacemaker placement tomorrow. 9. Further recommendations will be made pending the patient's response to treatment. Thank you for the opportunity to participate in the care of this patient. All recommendations and orders are per Dr. Douglas
--- NOTE | 2024-11-22 17:30 | PC.NURSE ---
Patient transferred to Medical Surgical room 202. Patient transferred by wheelchair by ICU staff at this time.
[2024-11-22 17:40] LABS: Troponin I < 0.01 ng/ml (0.00-0.034)
[2024-11-22] MEDS: ATORVASTATIN 40MG TABLET 40 MG PO (21:24)
[2024-11-22] MEDS: PANTOPRAZOLE 40MG TABLET 40 MG PO (21:25)
[2024-11-23] VITALS (17 sets, daily range): BP systolic 106–181; BP diastolic 41–83; PULSE 49–73; RESP 14–18; TEMP 36.4–36.9; O2SAT 93–100; BMI 25.4
--- NOTE | 2024-11-23 03:19 | PC.NURSE ---
Addendum entered by Mone Ward RN 11/23/24 03:20: sinus carlos on tele Original Note: pt has had no complaints this shift. Pt has rested well t/o the night. no acute changes. VSS.
[2024-11-23 06:28] LABS: Hematocrit 39.6 % (37.0-47.0); Immature Granulocytes % 0.1 %; Mean Corpuscular HGB Conc 33.1 g/dL (31.8-35.4); Mean Corpuscular Hemoglobin 30.7 pg (27.0-31.2); Mean Corpuscular Volume 92.7 fl (81-99); Nucleated Red Blood Cells % 0 %; Platelet Count 469 K/mm3 (142-424); Red Blood Count 4.27 M/mm3 (4.20-5.40); Red Cell Distribution Width-SD 46.9 fL; White Blood Count 6.8 K/mm3 (4.8-10.8)
[2024-11-23 06:32] LABS: Hemoglobin 13.1 g/dL (12.2-16.2)
[2024-11-23 06:40] LABS: Albumin Level 3.8 g/dl (3.5-5.0); Chloride 107 mmol/L (98-107); Potassium 4.1 mmoL/L (3.5-5.1); Sodium 138 mmol/L (136-145)
[2024-11-23 06:42] LABS: Blood Urea Nitrogen 21 mg/dl (7-17); Creatinine Clearance Estimated 48 mL/min (50-200); Creatinine,Serum 0.80 mg/dl (0.52-1.04); Estimated Glomerular Filt Rate 69 ml/min (>60); GFR (African American) 83 ML/MIN (>60)
[2024-11-23 06:43] LABS: Alanine Aminotransferase 18 U/L (12-78); Albumin/Globulin Ratio 1.7 (1.1-1.8); Alkaline Phosphatase 59 U/L (38-126); Anion Gap 9.1 mEq/L (5-15); Aspartate Amino Transferase 32 U/L (14-36); Bilirubin,Total 1.1 mg/dl (0.2-1.3); Calcium 8.8 mg/dl (8.4-10.2); Carbon Dioxide 26 mmol/L (22.0-30.0); Cholesterol 124 mg/dl (140-200); Globulin 2.3 g/dL (1.3-3.2); Glucose 99 mg/dl (74-100); HDL Cholesterol 53 mg/dl (40-60); Magnesium 1.8 mg/dl (1.6-2.3); Total Protein,Serum 6.1 g/dl (6.3-8.2); Triglycerides 72 mg/dl (30-150)
[2024-11-23 07:13] LABS: Albumin Level 3.7 g/dl (3.5-5.0)
[2024-11-23 07:16] LABS: Alanine Aminotransferase 17 U/L (12-78); Alkaline Phosphatase 57 U/L (38-126); Aspartate Amino Transferase 27 U/L (14-36); Bilirubin,Direct 0.0 mg/dl (0.0-0.4); Bilirubin,Indirect 1.2 mg/dL (0.0-0.9); Bilirubin,Total 1.2 mg/dl (0.2-1.3); Bilirubin,Unconjugated 1.1 mg/dL (0.0-1.1); Total Protein,Serum 5.9 g/dl (6.3-8.2)
[2024-11-23] MEDS: LORATADINE 10MG TABLET 10 MG PO (08:15)
--- NOTE | 2024-11-23 08:29 | IR_ITS ---
APPROVED REPORT Patient Location: Inpatient Plan Checker: LOURDES Burrows RT (R) PROCEDURES 1. Pocket formation for Permanent Pacemaker Placement. 2. Placement of an atrial sensing and pacing coil into the right atrial appendage. 3. Placement of a ventricular sensing and pacing coil in the right ventricular apex. 4. Permanent Pacemaker Placement. INDICATION Tachy carlos Syndrome, Symptomatic bradycardia Informed consent was obtained prior to the procedure. COMPLICATIONS None Estimated Blood Loss: Less than 10 ML TECHNIQUE 1% Lidocaine with epinephrine used to anesthetized the left anterior aspect of the chest. Scalpel was used to make the initial cutaneous incision while electrocautery was used to dissect down tinto the fascia. The fascia was lifted off the pectoralis muscle and digitally manipulated creating a pocket for the pacemaker. The patient was then placed in Trendelenburg position and the subclavian vein was accessed twice via the Selinger technique, there are two wires in the vein. A 6 Croatian sheath was placed under fluoroscopic guidance into the subclavian vein over one of the wires while keeping the other wire in place within the subclavian vein. The dilator was removed from the sheath. Using fluoroscopic guidance, the ventricular lead was placed into the right ventricular apex, screwed and secured into place. Electronic interrogation proved acceptable thresholds and voltage within the lead. Using 3-0 silk, the ventricular lead was then secured into place. Lead was secured to the facia using the 3-0 silk. Following this, the sheath was pealed away. An additional 6 Croatian fresh sheath and dilator was placed over the existing wire. Using fluoroscopic guidance, the atrial lead was the placed into the right atrial appendage and screwed and secured in place. Electrical interrogation demonstrated acceptable thresholds and voltage number. The atrial lead was then secured into place using 3-0 silk. 1 gram of Ancef was used to flush the pocket. Following the pacemaker generator being secured to the fascia and in place, Monocryl was used to close the subcutaneous layers while fay were used to close the cutaneous layer. A pressure dressing was placed and the patient was transferred to the postop holding area in stable condition for postoperative care. INTERROGATION Generator Model [facility]: [facility] [id number] Generator Serial number: [id number] Atrial lead model number: Tendril STS, 46cm, 2087TC Atrial lead serial number: [id number] P-wave: 5.0mV Impedance: 640 ohms Threshold: 1.0V@0.4ms Right Ventricular lead model number: [place] ALICEA, 52cm, 2087TC Right Ventricular lead serial number: [id number] R-wave: >12mV Impedance: 700 ohms Threshold: 0.75V@0.4ms Pacing Parameters: Mode: DDDR Base/Max Track: 70 ppm / 130 ppm No diaphragmatic stimulation at 10 volts. IMPRESSION 1. Successful pocket formation for Permanent Pacemaker Placement. 2. Successful placement of an atrial sensing and pacing coil into the right atrial appendage. 3. Successful placement of a ventricular sensing and pacing coil in the right ventricular apex. 4. Successful permanent Pacemaker Placement. PLAN 1. Postop wound care. Electronically signed by : Dat Douglas MD 11/25/2024 10:03:30
--- NOTE | 2024-11-23 09:31 | EXP.ANES.CKL ---
[facility] Disclaimer: The information contained in this section may have been updated after the patient was seen, as this information can be updated by other users. Medical History (Updated 11/22/24 @ 17:16 by Avila Yu DO) Tachy-carlos syndrome Shortness of Breath Tingling of face Visual disturbance Tinnitus Headache COVID-19 Diarrhea Arthritis Kidney stones Skin cancer A-fib Arrhythmia GERD (gastroesophageal reflux disease) HTN (hypertension) Osteoporosis HLD (hyperlipidemia) Atherosclerotic cardiovascular disease CAD (coronary artery disease) Surgical History Hx of local excision of skin lesion History of cardiac catheterization History of tonsillectomy Family History Mother Cancer Father Cancer Other No significant family history Social History Smoking Status: Never smoker alcohol intake: never substance use type: denies use current occupational status: retired Travel in the last 8 weeks?: None household members: spouse housing: house 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 caffeine: No Have you lived/traveled outside [place] in past 30 days?: No Contact w/someone who lives/traveled outside US past 30 days?: No Exposure to someone with infectious disease in past 14 days?: No Do you have a fever (greater than 100.4 F or 38 C)?: No Have you tested positive for COVID-19?: No Exposed to someone with COVID-19 in past 14 days?: No Do you have a sore throat?: No Do you have a cough?: No Do you have any weakness?: No Do you have any diarrhea?: No Are you experiencing any unusual bleeding?: No Do you have any muscle aches/pain?: No Do you have any abdominal pain?: No Are you experiencing loss of taste or smell?: No [facility] Anesthesia Checklist Patient Identification Patient Identification: Arm Band Structural Data Admitted From: Inpatient Planned Operative Procedure/s: Dual Chamber Pacemaker Consent for Planned Operative Procedure(s) Verified: Yes Verified Documents: Surgical Consent and History and Physical NPO Status Verified Time NPO: 00:00 Additional verifications Anesthesia Reactions: No Airway Assessment Mallampati Score:: Class II C-Spine Mobility Assessed: Yes TMJ Mobility Assessed: Yes Dentition: Good Dentition Neurological Assessment Level of Consciousness: Awake, Alert and Appropriate Anesthesia Plan Anesthesia Risk discussed: Yes Anesthesia Plan: Verified ASA Class: III Anesthesia Type: MAC
[2024-11-23] MEDS: CLINDAMYCIN PHOSPHATE/D5W 900 MG/50 ML PIGGYBACK 100 MG IV (11:38)
[2024-11-23] MEDS: CLINDAMYCIN PHOSPHATE 900 MG in 0.9 % SODIUM CHLORIDE 100 ML 100 MG TP (11:44)
[2024-11-23] MEDS: LIDOCAINE 1% W/EPI 1:100,000 20ML VIAL 20 ML IJ (11:45)
--- NOTE | 2024-11-23 11:49 | P.PN_ITS ---
Subjective Subjective Date: 11/23/24 Time: 10:30 Principal diagnosis: Atrial fibrillation with RVR, sinus bradycardia, tachybrady syndrome Interval history: This is an 84-year-old female who presented to the emergency department after having an echocardiogram for atrial fibrillation with RVR. She states that she woke up she knew she was in atrial fibrillation because she did not feel well. She states that when she is in atrial fibrillation she feels very weak and tired and short of breath. She states that her symptoms were more severe than usual. Upon arrival to the emergency department she was in atrial fibrillation with RVR. She was treated with a diltiazem bolus and she rate controlled. The diltiazem drip was not started. Once she got into a room after being admitted to the hospital she did convert to sinus rhythm. She remains in sinus rhythm this morning. The patient has been intolerant of multiple medications for rate control due to bradycardia. Once she converted to sinus rhythm she was bradycardic. She has been offered pacemaker on multiple occasions. She is now back in the hospital with tachybrady syndrome. This morning she states she is feeling much better. She denies any chest pain or pressure. She denies any shortness of breath or edema. She denies any fever, chills, nausea, vomiting or diarrhea. She denies any palpitations or fluttering of the heart. She states that she is chronically fatigued from her bradycardia. Exam Data for Last 24 hours Vital signs and Labs for Last 24 Hours: Temp Pulse Resp BP Pulse Ox O2 Del Method 97.8 F 55 L 14 138/51 L 96 Room Air 11/23/24 08:00 11/23/24 08:00 11/23/24 08:00 11/23/24 08:00 11/23/24 08:00 11/23/24 08:25 Laboratory Results - last 24 hr 11/22/24 12:12: Troponin I < 0.01 11/22/24 16:30: Troponin I < 0.01 11/23/24 06:12: WBC 6.8, RBC 4.27, Hgb 13.1 D, Hct 39.6, MCV 92.7, MCH 30.7, MCHC 33.1, RDW 13.8, Plt Count 469 H, MPV 10.9 H, Neut % (Auto) 60.4, Lymph % (Auto) 28.4, Morrison % (Auto) 7.5, Eos % (Auto) 3.2, Baso % (Auto) 0.4, Neut # (Auto) 4.1, Lymph # (Auto) 1.9, Morrison # (Auto) 0.5, Eos # (Auto) 0.2, Baso # (Auto) 0.0, Sodium 138, Potassium 4.1, Chloride 107, Carbon Dioxide 26, Anion Gap 9.1, BUN 21 H, Creatinine 0.80, Estimated Creat Clear 48, Estimated GFR 69, Est GFR ( Amer) 83, Glucose 99, Calcium 8.8, Magnesium 1.8, Total Bilirubin 1.1 11/23/24 06:12: Total Bilirubin 1.2, Direct Bilirubin 0.0, Conjugated Bilirubin 0.0, Indirect Bilirubin 1.2 H, Unconjugated Bilirubin 1.1, AST 32 11/23/24 06:12: AST 27, ALT 18 11/23/24 06:12: ALT 17, Alkaline Phosphatase 59 11/23/24 06:12: Alkaline Phosphatase 57, Total Protein 6.1 L 11/23/24 06:12: Total Protein 5.9 L, Albumin 3.8 D 11/23/24 06:12: Albumin 3.7, Globulin 2.3, Albumin/Globulin Ratio 1.7, Triglycerides 72, Cholesterol 124 L, LDL Cholesterol Direct 44.12 L, VLDL Cholesterol 14, HDL Cholesterol 53, Cholesterol/HDL Ratio 2.3 I & O for Last 24 hours: Intake & Output 11/20/24 11/21/24 11/22/24 11/23/24 23:59 23:59 23:59 23:59 Intake Total 160 / 160 Output Total 750 / 750 450 / 450 Balance -590 / -590 -450 / -450 Weight 155 lb 153 lb Constitutional Constitutional: no acute distress and average body habitus *Routine HEENT Exam Head: Present normocephalic and atraumatic ENT: Present mucous membranes moist *Routine Neck Exam Neck: Present supple, full ROM and normal carotid upstroke; Absent JVD, carotid bruit or lymphadenopathy *Routine Respiratory Exam Respiratory: Present CTA bilaterally, normal respiratory effort, able to speak in complete sentences and symmetric chest movement *Routine Cardiovascular Exam Cardiovascular: Present Normal S1, Normal S2 and bradycardia; Absent murmur or g allop *Routine Abdominal Exam Abdominal: Present soft and normoactive bowel sounds; Absent tenderness, distended or organomegaly *Routine Extremities Exam Extremities: Present full ROM, pulses intact and normal capillary refill; Absent cyanosis, clubbing or edema *Routine Skin Exam Skin: Present intact and warm; Absent erythema *Routine Neurological Exam Neurological: Present alert, oriented X3 and CN II-XII intact; Absent sensory deficit or motor deficit Routine Psychiatric Exam Psychiatric: Present normal affect Progress Note: A&P Assessment and plan (1) Tachy-carlos syndrome: Status: Acute (2) Bradycardia, sinus: Status: Acute (3) Atrial fibrillation with rapid ventricular response: Status: Acute (4) Hypertension: Status: Acute (5) HLD (hyperlipidemia): Status: Chronic (6) GERD (gastroesophageal reflux disease): Status: Acute (7) CAD (coronary artery disease): Status: Chronic Assessment and Plan Assessment and Plan for All Diagnoses:: Plan: 1. The patient presented to the emergency department with atrial fibrillation with RVR. She was treated with diltiazem and converted to sinus bradycardia. The patient remains in sinus rhythm this morning with bradycardia. The patient has tachybrady syndrome. Recommend permanent pacemaker placement due to her atrial fibrillation with RVR, sinus bradycardia and tachybrady syndrome. 2. Will plan to proceed with permanent pacemaker placement today due to sinus bradycardia, atrial fibrillation with RVR and tachybrady syndrome. The patient has been educated the risk and benefits of proceeding with permanent pacemaker placement. The patient verbalized understanding and is agreeable in proceeding with the procedure. 3. The patient will be n.p.o. today for permanent pacemaker placement. 4. Mild nonocclusive CAD is present. She ruled out for an [place]. She denies chest pain or pressure. No plans for left cardiac catheterization at this time. 5. Her blood pressure is acceptable at this time. 6. Her LDL goal is less than 55. Her LDL is 44. She is on a statin. 7. Following permanent pacemaker placement today will plan to start her on diltiazem ER 180mg daily for suppression of her atrial fibrillation. 8. Hold Xarelto in preparation for permanent pacemaker. Will resume following permanent pacemaker placement for long-term anticoagulation.. 9. Further recommendations will be made pending the patient's response to treatment. Thank you for the opportunity to participate in the care of this patient. All recommendations and orders are per Dr. Laguerre.
--- NOTE | 2024-11-23 12:42 | XR_ITS ---
FINAL REPORT CLINICAL HISTORY: Confirm pacemaker/AID placement COMPARISON: 11/22/2024 FINDINGS: There has been interval placement of a left-sided AICD. The heart size is mildly enlarged. The mediastinum is normal. There is no focal infiltrate or edema. There are no pleural effusions. There is no pneumothorax. There is no osseous abnormality. IMPRESSION: Left-sided AICD without pneumothorax. Reviewed, Interpreted and Dictated by Salbador Luther MD Transcribed by Karina Lucero Authenticated and [facility]
--- NOTE | 2024-11-23 13:11 | SUR.PHASEII ---
HEMATOMA DEVELOPED AT PACEMAKER SITE UPON ARRIVAL TO 2ND FLOOR. PRESSURE HELD TO SITE FOR 10 MINUTES, STERILE REDRESSED, SAND BAG PLACED OVER SITE. INSTRUCTED DANIA RN TO WATCH SITE CLOSELY, HOLD PRESSURE IF NEEDED
[2024-11-23] MEDS: OXYCODONE 5MG W/APAP 325MG TABLET 1 EACH PO (13:57)
[2024-11-23] MEDS: dilTIAZem HCL 180MG CAP.ER.24H 180 MG PO (14:41)
--- NOTE | 2024-11-23 14:47 | PC.NURSE ---
Left chest area with pacemaker bruised dressing c/d/i.
--- NOTE | 2024-11-23 15:24 | P.DS_ITS ---
<Statement entered by Joshua Espinoza MD - 11/23/24 15:56> Rounded on patient after nurse practitioner. Personally examined and interviewed patient. Agree with exam findings and care plan as documented. General Admission date:: 11/22/24 Discharge date: 11/23/24 HPI HPI HPI: Ms. Manning is a 84-year-old female who presented for an outpatient cardiology workup today due to persistent atrial fibrillation. She was found to be in A- fib RVR and was directed to the emergency department for further evaluation and workup. She has a primary medical history of A-fib, hypertension, CAD, ye ycardia, tachybradycardia syndrome. Workup in the ED revealed the patient was in A-fib with RVR rate between 130-140. She was given IV metoprolol which did not change her rate, she was then given a diltiazem bolus, at which time her rate became controlled. After approximately 1 hour she converted back to normal sinus rhythm, rate in the 50s. She did not require a diltiazem drip. She states that she has been being worked up for a possible ablation. She is currently taking sotalol 60 mg twice daily. She has been on multiple other medications for her A-fib (diltiazem, amiodarone, metoprolol) without success. She states that the medication either does not work and she becomes tachycardic or works too well and she becomes bradycardic. Discussion has been had for pacemaker placement but patient preferred continuing with the workup for possible ablation so she could come off of the medication. After speaking with cardiology and the ED provider decision was made to admit the patient for further monitoring of her atrial fibrillation and potential pacemaker placement pending discussion with patient and her family. Hospital Course Hospital Course Hospital Course: Ms. Manning is a 84-year-old female who presented for an outpatient cardiology workup today due to persistent atrial fibrillation. She was found to be in A- fib RVR and was directed to the emergency department for further evaluation and workup. She has a primary medical history of A-fib, hypertension, CAD, bradycardia, tachybradycardia syndrome. Workup in the ED revealed the patient was in A-fib with RVR rate between 130-140. She was given IV metoprolol which did not change her rate, she was then given a diltiazem bolus, at which time her rate became controlled. After approximately 1 hour she converted back to normal sinus rhythm, rate in the 50s. She did not require a diltiazem drip. She states that she has been being worked up for a possible ablation. She is currently taking sotalol 60 mg twice daily. She has been on multiple other medications for her A-fib (diltiazem, amiodarone, metoprolol) without success. She states that the medication either does not work and she becomes tachycardic or works too well and she becomes bradycardic. Discussion has been had for pacemaker placement but patient preferred continuing with the workup for possible ablation so she could come off of the medication. After speaking with cardiology and the ED provider decision was made to admit the patient for furt her monitoring of her atrial fibrillation and potential pacemaker placement pending discussion with patient and her family. Hospital medicine was consulted and I agreed to admit the patient for further monitoring, plan of care as follows: #Tachybradycardia syndrome #A-fib with RVR ? Patient presented with A-fib RVR to the emergency department, was treated with metoprolol and diltiazem IV. She has converted to sinus bradycardia at this time. Discussion was made with cardiology for possible pacemaker placement due to tachybradycardia syndrome. Patient has been intolerant to multiple beta- blockers, amiodarone, diltiazem in an outpatient setting. After discussion with Dr. Douglas and the cardiology team patient was agreeable to pacemaker. Patient had pacemaker placed today, tolerated procedure well. No complications were noted. Chest x-ray performed postprocedure showed no pneumothorax. ?Patient will be discharged home on diltiazem 180 ER per cardiology r ecommendation. Discontinue sotalol. She will follow-up with cards in 1 week. ?Patient may resume Xarelto 20 mg tomorrow evening. ?Patient was expressing some pain postprocedure, discharged home with [place] 5/325 mg every 6 hours as needed?total of 5 tablets. #Hypertension #Hyperlipidemia #Bradycardia ?Cholesterol 124, LDL 44. Continue atorvastatin 40 mg at bedtime #GERD: Continue omeprazole 20 mg daily. Total time spent on discharge 33 minutes in counseling, documentation, chart review, and direct care with patient. Exam Data for Last 24 hours Vital signs and Labs for Last 24 Hours: Temp Pulse Resp BP Pulse Ox O2 Del Method 97.8 F 70 17 134/64 95 Room Air 11/23/24 14:40 11/23/24 14:40 11/23/24 14:40 11/23/24 14:40 11/23/24 14:40 11/23/24 14:46 Laboratory Results - last 24 hr 11/22/24 16:30: Troponin I < 0.01 11/23/24 06:12: WBC 6.8, RBC 4.27, Hgb 13.1 D, Hct 39.6, MCV 92.7, MCH 30.7, MCHC 33.1, RDW 13.8, Plt Count 469 H, MPV 10.9 H, Neut % (Auto) 60.4, Lymph % (Auto) 28.4, [place] % (Auto) 7.5, Eos % (Auto) 3.2, Baso % (Auto) 0.4, Neut # (Auto) 4.1, Lymph # (Auto) 1.9, [place] # (Auto) 0.5, Eos # (Auto) 0.2, Baso # (Auto) 0.0, Sodium 138, Potassium 4.1, Chloride 107, Carbon Dioxide 26, Anion Gap 9.1, BUN 21 H, Creatinine 0.80, Estimated Creat Clear 48, Estimated GFR 69, Est GFR ( Amer) 83, Glucose 99, Calcium 8.8, Magnesium 1.8, Total Bilirubin 1.1 11/23/24 06:12: Total Bilirubin 1.2, Direct Bilirubin 0.0, Conjugated Bilirubin 0.0, Indirect Bilirubin 1.2 H, Unconjugated Bilirubin 1.1, AST 32 11/23/24 06:12: AST 27, ALT 18 11/23/24 06:12: ALT 17, Alkaline Phosphatase 59 11/23/24 06:12: Alkaline Phosphatase 57, Total Protein 6.1 L 11/23/24 06:12: Total Protein 5.9 L, Albumin 3.8 D 11/23/24 06:12: Albumin 3.7, Globulin 2.3, Albumin/Globulin Ratio 1.7, Triglycerides 72, Cholesterol 124 L, LDL Cholesterol Direct 44.12 L, VLDL Cholesterol 14, HDL Cholesterol 53, Cholesterol/HDL Ratio 2.3 I & O for Last 24 hours: Intake & Output 11/20/24 11/21/24 11/22/24 11/23/24 23:59 23:59 23:59 23:59 Intake Total 160 / 160 156 / 156 Output Total 750 / 750 450 / 450 Balance -590 / -590 -294 / -294 Weight 70.307 kg 69.4 kg Constitutional Constitutional: no acute distress and average body habitus *Routine HEENT Exam Head: Present normocephalic and atraumatic ENT: Present mucous membranes moist *Routine Neck Exam Neck: Present supple, full ROM and normal carotid upstroke; Absent JVD, carotid bruit or lymphadenopathy *Routine Respiratory Exam Respiratory: Present CTA bilaterally, normal respiratory effort, able to speak in complete sentences and symmetric chest movement *Routine Cardiovascular Exam Cardiovascular: Present Normal S1, Normal S2 and bradycardia; Absent murmur or gallop *Routine Abdominal Exam Abdominal: Present soft and normoactive bowel sounds; Absent tenderness, distended or organomegaly *Routine Extremities Exam Extremities: Present full ROM, pulses intact and normal capillary refill; Absent cyanosis, clubbing or edema *Routine Skin Exam Skin: Present intact and warm; Absent erythema Comments: Surgical site left upper chest dressing clean dry and intact, small hematoma noted at surgical site. *Routine Neurological Exam Neurological: Present alert, oriented X3 and CN II-XII intact; Absent sensory deficit or motor deficit Routine Psychiatric Exam Psychiatric: Present normal affect Results Data Completed and Pending Labs on day of discharge: Labs from last 24 hours 11/23/24 11/23/24 11/23/24 06:12 06:12 06:12 WBC RBC Hgb Hct MCV MCH MCHC RDW Plt Count MPV Neut % (Auto) Lymph % (Auto) [place] % (Auto) Eos % (Auto) Baso % (Auto) Neut # (Auto) Lymph # (Auto) [place] # (Auto) Eos # (Auto) Baso # (Auto) Sodium Potassium Chloride Carbon Dioxide Anion Gap BUN Creatinine Estimated Creat Clear Estimated GFR Est GFR ( Amer) Glucose Calcium Magnesium Total Bilirubin Direct Bilirubin Conjugated Bilirubin Indirect Bilirubin Unconjugated Bilirubin AST ALT Alkaline Phosphatase 57 Troponin I Total Protein 5.9 L 6.1 L Albumin 3.7 3.8 D Globulin 2.3 Albumin/Globulin Ratio 1.7 Triglycerides 72 Cholesterol 124 L LDL Cholesterol Direct 44.12 L VLDL Cholesterol 14 HDL Cholesterol 53 Cholesterol/HDL Ratio 2.3 11/23/24 11/23/24 11/23/24 06:12 06:12 06:12 WBC RBC Hgb Hct MCV MCH MCHC RDW Plt Count MPV Neut % (Auto) Lymph % (Auto) [place] % (Auto) Eos % (Auto) Baso % (Auto) Neut # (Auto) Lymph # (Auto) [place] # (Auto) Eos # (Auto) Baso # (Auto) Sodium Potassium Chloride Carbon Dioxide Anion Gap BUN Creatinine Estimated Creat Clear Estimated GFR Est GFR ( Amer) Glucose Calcium Magnesium Total Bilirubin 1.2 Direct Bilirubin 0.0 Conjugated Bilirubin 0.0 Indirect Bilirubin 1.2 H Unconjugated Bilirubin 1.1 AST 27 32 ALT 17 18 Alkaline Phosphatase 59 Troponin I Total Protein Albumin Globulin Albumin/Globulin Ratio Triglycerides Cholesterol LDL Cholesterol Direct VLDL Cholesterol HDL Cholesterol Cholesterol/HDL Ratio 11/23/24 11/22/24 06:12 16:30 WBC 6.8 RBC 4.27 Hgb 13.1 D Hct 39.6 MCV 92.7 MCH 30.7 MCHC 33.1 RDW 13.8 Plt Count 469 H MPV 10.9 H Neut % (Auto) 60.4 Lymph % (Auto) 28.4 [place] % (Auto) 7.5 Eos % (Auto) 3.2 Baso % (Auto) 0.4 Neut # (Auto) 4.1 Lymph # (Auto) 1.9 [place] # (Auto) 0.5 Eos # (Auto) 0.2 Baso # (Auto) 0.0 Sodium 138 Potassium 4.1 Chloride 107 Carbon Dioxide 26 Anion Gap 9.1 BUN 21 H Creatinine 0.80 Estimated Creat Clear 48 Estimated GFR 69 Est GFR ( Amer) 83 Glucose 99 Calcium 8.8 Magnesium 1.8 Total Bilirubin 1.1 Direct Bilirubin Conjugated Bilirubin Indirect Bilirubin Unconjugated Bilirubin AST ALT Alkaline Phosphatase Troponin I < 0.01 Total Protein Albumin Globulin Albumin/Globulin Ratio Triglycerides Cholesterol LDL Cholesterol Direct VLDL Cholesterol HDL Cholesterol Cholesterol/HDL Ratio DS: Diagnosis Discharge Diagnosis (1) Tachy-carlos syndrome: Status: Acute Code(s): I49.5 - Sick sinus syndrome (2) Bradycardia, sinus: Status: Acute Code(s): R00.1 - Bradycardia, unspecified (3) Atrial fibrillation with rapid ventricular response: Status: Acute Code(s): I48.91 - Unspecified atrial fibrillation (4) Hypertension: Status: Acute Code(s): I10 - Essential (primary) hypertension Qualifiers: Hypertension type: primary hypertension Qualified Code(s): I10 - Essential (primary) hypertension (5) HLD (hyperlipidemia): Status: Chronic Code(s): E78.5 - Hyperlipidemia, unspecified Qualifiers: Hyperlipidemia type: mixed hyperlipidemia Qualified Code(s): E78.2 - Mixed hyperlipidemia (6) GERD (gastroesophageal reflux disease): Status: Acute Code(s): K21.9 - Gastro-esophageal reflux disease without esophagitis (7) CAD (coronary artery disease): Status: Chronic Code(s): I25.10 - Atherosclerotic heart disease of [place] coronary artery without angina pectoris Qualifiers: Coronary Disease-Associated Artery/Lesion type: [place] artery [place] vs. transplanted heart: [place] heart Associated angina: without angina Qualified Code(s): I25.10 - Atherosclerotic heart disease of [place] coronary artery without angina pectoris Meds Home Medications and Allergies Home Medications ?Medication ?Instructions ?Recorded ?Confirmed ?Type omeprazole 20 mg tablet,delayed 20 mg PO DAILY 0 11/22/24 History release cholecalciferol (vitamin D3) 25 25 mcg PO DAILY 11/22/24 History mcg (1,000 unit) capsule cetirizine 10 mg tablet (Zyrtec) 5 mg PO HS 02/04/24 0 11/22/24 History rivaroxaban 20 mg tablet (Xarelto) 20 mg PO QPMWITHMEA L #90 tabs 05/31/24 11/22/24 Rx atorvastatin 40 mg tablet 40 mg PO HS #90 tabs 5 11/22/24 Rx diltiazem HCl 180 mg 180 mg PO DAILY 30 days #30 caps 11/23/24 Rx capsule,extended release 24 hr hydrocodone 5 mg-acetaminophen 325 1 tab PO Q6HP PRN M oderate Pain 11/23/24 Rx mg tablet (4-6) 2 days #5 tabs New Prescriptions to Start Prescriptions: hydrocodone-acetaminophen Frances Rhodes diltiazem HCl Frances Rhodes Allergies Allergy/AdvReac Type Severity Reaction Status Date / Time amoxicillin Allergy Severe Unknown Verified 11/07/24 10:43 allergy reaction metronidazole (From Flagyl) Allergy Severe Unknown Verified 11/07/24 10:43 allergy reaction protectives, O.U. (From Allergy Severe Unknown Verified 11/07/24 10:43 Sensi-Care (foam)) allergy reaction Penicillins Allergy Intermediate EDEMA Verified 11/07/24 10:43 apixaban (From Eliquis) Allergy Mild Rash Verified 11/07/24 10:43 Sulfa (Sulfonamide Allergy Unknown Unknown Verified 11/07/24 10:43 Antibiotics) (SULFA allergy (SULFONAMIDE ANTIBIOTICS)) reaction adhesive tape Allergy Unknown Verified 11/07/24 10:43 allergy reaction amiodarone AdvReac Mild GI UPSET Verified 11/07/24 10:43 acetaminophen AdvReac Nausea Verified 11/07/24 10:43 Discharge Plan Disposition Patient Disposition: Home, Self-Care Condition: Fair Follow up Plan Follow up with: Kathe Sher APRN [Nurse Practitioner, Cardiology] - 1 week Allen Love MD [Primary Care Provider, Internal Medicine] - Enter time for follow up Prescriptions/Medication Reconciliation: New diltiazem HCl 180 mg Capsule,Extended Release 24hr 180 mg PO DAILY 30 Days Qty: 30 0RF hydrocodone-acetaminophen 5-325 mg Tablet 1 tab PO Q6HP PRN (Reason: Moderate Pain (4-6)) 2 Days Qty: 5 0RF Continued cholecalciferol (vitamin D3) 25 mcg (1,000 unit) capsule 25 mcg PO DAILY Xarelto 20 mg tablet 20 mg PO QPMWITHMEAL Qty: 90 3RF atorvastatin 40 mg tablet 40 mg PO HS Qty: 90 1RF omeprazole 20 MG tablet,delayed release (DR/EC) 20 mg PO DAILY cetirizine [Zyrtec] 10 mg Tablet 5 mg PO HS Discontinued sotalol 120 mg tablet 60 mg PO BID Problem Reconciliation Problems Reviewed?: Yes Patient Discharge Instructions ACTIVITY: No heavy lifting and Up with assistance DIET: continue same diet Patient Instructions: DI for Pacemaker Insertion, DI for Atrial Fibrillation, DI for Surgical Site Infection Print Language: Chinese Providers Primary Care Provider: Allen Love Admit Provider: Joshua Espinoza Attending Provider: Joshua Espinoza
[2024-11-23] MEDS: ONDANSETRON 4MG/2ML VIAL 4 MG IV (15:31)
--- NOTE | 2024-11-23 16:57 | PC.NURSE ---
Left chest area with the pacemaker is bruised with some swelling noted to the left under arm area. Md. aware and patient to remain on the floor tonight.
--- NOTE | 2024-11-23 17:15 | PC.NURSE ---
. wants the sandbag placed back over the pacemaker. Family wants her to eat first then they will call out for it to be placed.
--- NOTE | 2024-11-23 17:21 | PC.NURSE ---
16:40 [employer] okay to leave out iv.
--- NOTE | 2024-11-23 17:48 | P.PN_ITS ---
<Statement entered by Joshua Espinoza MD - 11/24/24 14:34> Rounded on patient after nurse practitioner. Personally examined and interviewed patient. Agree with exam findings and care plan as documented. Subjective *Date: 11/24/24 *Time: 11:20 Interval history: Patient is postop pacemaker. She is lying in bed, complains of moderate pain. Patient has [place] ordered as needed. Patient has standby currently on pacemaker site. Site has moderate to large size hematoma. Discussed with patient staying overnight for monitoring of postop bleeding/hematoma. She is agreeable. Medical Exam Vital signs and Labs for Last 24 Hours: Vital Signs Temp Pulse Pulse Resp BP BP Pulse Ox 11/23/24 17:00 11/23/24 16:00 97.9 F 70 16 135/61 95 11/23/24 15:40 97.8 F 70 15 132/65 98 11/23/24 15:10 97.8 F 70 17 136/65 98 11/23/24 14:46 11/23/24 14:40 97.8 F 70 17 134/64 95 11/23/24 14:10 97.6 F 70 16 135/65 98 11/23/24 13:40 97.9 F 70 16 166/72 H 98 11/23/24 13:25 97.6 F 73 16 157/73 H 98 11/23/24 13:10 97.6 F 70 16 175/68 H 98 11/23/24 12:55 97.6 F 70 16 181/62 H 98 11/23/24 12:45 70 18 165/80 H 100 11/23/24 12:35 70 18 168/83 H 98 11/23/24 08:25 11/23/24 08:00 60 11/23/24 08:00 11/23/24 08:00 97.8 F 55 L 14 138/51 L 96 11/23/24 07:00 11/23/24 05:00 11/23/24 04:22 57 L 11/23/24 04:00 98.1 F 50 L 16 124/56 L 95 11/23/24 03:00 11/23/24 01:00 11/23/24 00:00 97.7 F 49 L 16 116/48 L 96 11/23/24 00:00 49 L 11/22/24 23:00 11/22/24 21:00 11/22/24 20:00 52 L 11/22/24 20:00 97.9 F 52 L 16 115/54 L 95 11/22/24 20:00 11/22/24 18:04 O2 Del Method 11/23/24 17:00 Room Air 11/23/24 16:00 Room Air 11/23/24 15:40 Room Air 11/23/24 15:10 Room Air 11/23/24 14:46 Room Air 11/23/24 14:40 Room Air 11/23/24 14:10 Room Air 11/23/24 13:40 Room Air 11/23/24 13:25 Room Air 11/23/24 13:10 Room Air 11/23/24 12:55 Room Air 11/23/24 12:45 11/23/24 12:35 Room Air 11/23/24 08:25 Room Air 11/23/24 08:00 11/23/24 08:00 Room Air 11/23/24 08:00 Room Air 11/23/24 07:00 Room Air 11/23/24 05:00 Room Air 11/23/24 04:22 11/23/24 04:00 Room Air 11/23/24 03:00 Room Air 11/23/24 01:00 Room Air 11/23/24 00:00 Room Air 11/23/24 00:00 11/22/24 23:00 Room Air 11/22/24 21:00 Room Air 11/22/24 20:00 11/22/24 20:00 Room Air 11/22/24 20:00 Room Air 11/22/24 18:04 Room Air Intake and Output 11/23/24 11/23/24 11/23/24 07:59 15:59 23:59 Intake Total 156 / 156 Output Total 300 / 450 150 / 450 Balance -300 / -294 6 / -294 Intake: Intake, Total IV Amount 156 / 156 Clindamycin Phosphate 900 mg In 106 / 106 0.9 % Sodium Chloride 100 ml @ 100 mls/hr TP ONCE ONE Rx#: [id number] Clindamycin Phosphate/D5w 900 50 / 50 mg In 50 ml @ 100 mls/hr IV PREOP ONE Rx#:[id number] Output: Output, Urine Amount 300 / 450 150 / 450 Other: Number of Unmeasured Voids 0 Weight 69.4 kg Patient Weight 11/23/24 23:59 Weight 69.4 kg Laboratory Results - last 24 hr 11/23/24 06:12: WBC 6.8, RBC 4.27, Hgb 13.1 D, Hct 39.6, MCV 92.7, MCH 30.7, MCHC 33.1, RDW 13.8, Plt Count 469 H, MPV 10.9 H, Neut % (Auto) 60.4, Lymph % (Auto) 28.4, [place] % (Auto) 7.5, Eos % (Auto) 3.2, Baso % (Auto) 0.4, Neut # (Auto) 4.1, Lymph # (Auto) 1.9, [place] # (Auto) 0.5, Eos # (Auto) 0.2, Baso # (Auto) 0.0, Sodium 138, Potassium 4.1, Chloride 107, Carbon Dioxide 26, Anion Gap 9.1, BUN 21 H, Creatinine 0.80, Estimated Creat Clear 48, Estimated GFR 69, Est GFR ( Amer) 83, Glucose 99, Calcium 8.8, Magnesium 1.8, Total Bilirubin 1.1 11/23/24 06:12: Total Bilirubin 1.2, Direct Bilirubin 0.0, Conjugated Bilirubin 0.0, Indirect Bilirubin 1.2 H, Unconjugated Bilirubin 1.1, AST 32 11/23/24 06:12: AST 27, ALT 18 11/23/24 06:12: ALT 17, Alkaline Phosphatase 59 11/23/24 06:12: Alkaline Phosphatase 57, Total Protein 6.1 L 11/23/24 06:12: Total Protein 5.9 L, Albumin 3.8 D 11/23/24 06:12: Albumin 3.7, Globulin 2.3, Albumin/Globulin Ratio 1.7, Triglycerides 72, Cholesterol 124 L, LDL Cholesterol Direct 44.12 L, VLDL Cholesterol 14, HDL Cholesterol 53, Cholesterol/HDL Ratio 2.3 I & O for Labs for Last 24 Hours: Intake & Output 11/20/24 11/21/24 11/22/24 11/23/24 23:59 23:59 23:59 23:59 Intake Total 160 / 160 156 / 156 Output Total 750 / 750 450 / 450 Balance -590 / -590 -294 / -294 Weight 70.307 kg 69.4 kg Constitutional: Present no acute distress and combative Head: Present atraumatic Eyes: Present as per HPI ENT: Present normal exam Neck: Present normal inspection Respiratory: Present CTA bilaterally, able to speak in complete sentences and symmetric chest movement; Absent wheezes or crackles Cardiac: Present Reg Rate and Rhythm Comment:: Pacemaker left upper chest, large hematoma GI: Present soft, distention and hypoactive bowel sounds; Absent tenderness Rectal (female): Present deferred (female): Present deferred Extremities: Present normal inspection and full ROM Skin: Present intact and dry Comment:: Hematoma post pacemaker left upper chest Neuro: Present awake and oriented x 3 Assessment and Plan *Assessment and plan (1) Tachy-carlos syndrome: Status: Acute Category: Medical Code(s): I49.5 - Sick sinus syndrome (2) Atrial fibrillation with rapid ventricular response: Status: Acute Category: Medical Code(s): I48.91 - Unspecified atrial fibrillation (3) Hypertension: Status: Acute Qualifiers: Hypertension type: primary hypertension Qualified Code(s): I10 - Essential (primary) hypertension Category: Medical Code(s): I10 - Essential (primary) hypertension (4) HLD (hyperlipidemia): Status: Chronic Qualifiers: Hyperlipidemia type: mixed hyperlipidemia Qualified Code(s): E78.2 - Mixed hyperlipidemia Category: Medical Code(s): E78.5 - Hyperlipidemia, unspecified (5) Bradycardia, sinus: Status: Acute Category: Medical Code(s): R00.1 - Bradycardia, unspecified (6) GERD (gastroesophageal reflux disease): Status: Acute Category: Medical Code(s): K21.9 - Gastro-esophageal reflux disease without esophagitis (7) Status post cardiac pacemaker procedure: Status: Acute Category: Surgical Code(s): Z95.0 - Presence of cardiac pacemaker Plan Ms. Manning is a 84-year-old female who presented for an outpatient cardiology workup today due to persistent atrial fibrillation. She was found to be in A- fib RVR and was directed to the emergency department for further evaluation and workup. She has a primary medical history of A-fib, hypertension, CAD, bradycardia, tachybradycardia syndrome. Workup in the ED revealed the patient was in A-fib with RVR rate between 130-140. She was given IV metoprolol which did not change her rate, she was then given a diltiazem bolus, at which time her rate became controlled. After approximately 1 hour she converted back to normal sinus rhythm, rate in the 50s. She did not require a diltiazem drip. She states that she has been being worked up for a possible ablation. She is currently taking sotalol 60 mg twice daily. She has been on multiple other medications for her A-fib (diltiazem, amiodarone, metoprolol) without success. She states that the medication either does not work and she becomes tachycardic or works too well and she becomes bradycardic. Discussion has been had for pacemaker placement but patient preferred continuing with the workup for possible ablation so she could come off of the medication. After speaking with cardiology and the ED provider decision was made to admit the patient for further monitoring of her atrial fibrillation and potential pacemaker placement pending discussion with patient and her family. Hospital medicine was consulted and I agreed to admit the patient for further monitoring, plan of care as foll ows: #Tachybradycardia syndrome #A-fib with RVR ? Patient presented with A-fib RVR to the emergency department, was treated with metoprolol and diltiazem IV. She has converted to sinus bradycardia at this time. Discussion was made with cardiology for possible pacemaker placement due to tachybradycardia syndrome. Patient has been intolerant to multiple beta- blockers, amiodarone, diltiazem in an outpatient setting. After discussion with Dr. Douglas and the cardiology team patient is agreeable to pacemaker placement, patient will be made n.p.o. after breakfast for procedure tomorrow. ?Patient has been getting a workup done for possible cardiac ablation for her atrial fibrillation. She is currently wearing a Holter monitor to track her A- fib. ?Patient is status post pacemaker. Doing well complaining of moderate pain. [place] ordered as needed for pain control. Pacemaker site has moderate to large hematoma extending into the breast and axillary. Patient does take Xarelto, was held for 1 day prior to procedure. Discussed with patient the need for overnight monitoring due to bleeding risk. Patient is agreeable to stay overnight. #Hypertension #Hyperlipidemia #Bradycardia ?Currently holding sotalol due to bradycardia. Will reevaluate tomorrow after pacemaker placement. ?Last lipid panel was 2023, will obtain lipid panel tomorrow morning. Continue atorvastatin 40 mg at bedtime. ?CBC, CMP, magnesium ordered for the a.m. #GERD: Continue omeprazole 20 mg daily. Cardiac diet, n.p.o. after breakfast Ambulate as tolerated VTE?contraindicated due to procedure
[2024-11-23] MEDS: ATORVASTATIN 40MG TABLET 40 MG PO (20:26)
[2024-11-23] MEDS: OXYCODONE 5MG W/APAP 325MG TABLET 2 EACH PO (20:26)
[2024-11-23] MEDS: PANTOPRAZOLE 40MG TABLET 40 MG PO (20:26)
[2024-11-24] VITALS: PULSE 72
--- NOTE | 2024-11-24 03:44 | PC.NURSE ---
Pt A&OX4 and has tolerated room air. Lung sounds clear and bowel sounds active. Bruising and swelling noted over pacemaker. She did complain of pain once in that site and was medicated per MAR. She has ambulated room independently. No other complaints at this time, call light within reach.
[2024-11-24 04:00] VITALS: BP 114/44; PULSE 70; RESP 16; TEMP 36.8; O2SAT 94; BMI 25.7
[2024-11-24 06:35] LABS: Hematocrit 38.1 % (37.0-47.0); Hemoglobin 12.6 g/dL (12.2-16.2); Immature Granulocytes % 0.2 %; Mean Corpuscular HGB Conc 33.1 g/dL (31.8-35.4); Mean Corpuscular Hemoglobin 30.7 pg (27.0-31.2); Mean Corpuscular Volume 92.9 fl (81-99); Nucleated Red Blood Cells % 0 %; Platelet Count 489 K/mm3 (142-424); Red Blood Count 4.10 M/mm3 (4.20-5.40); Red Cell Distribution Width-SD 46.2 fL; White Blood Count 8.7 K/mm3 (4.8-10.8)
[2024-11-24 06:40] LABS: Albumin Level 3.6 g/dl (3.5-5.0); Chloride 106 mmol/L (98-107); Sodium 136 mmol/L (136-145)
[2024-11-24 06:41] LABS: Potassium 4.0 mmoL/L (3.5-5.1)
[2024-11-24 06:43] LABS: Alanine Aminotransferase 15 U/L (12-78); Alkaline Phosphatase 55 U/L (38-126); Anion Gap 12.0 mEq/L (5-15); Aspartate Amino Transferase 34 U/L (14-36); Bilirubin,Total 1.1 mg/dl (0.2-1.3); Blood Urea Nitrogen 26 mg/dl (7-17); Carbon Dioxide 22 mmol/L (22.0-30.0); Creatinine Clearance Estimated 48 mL/min (50-200); Creatinine,Serum 0.90 mg/dl (0.52-1.04); Estimated Glomerular Filt Rate 60 ml/min (>60); GFR (African American) 73 ML/MIN (>60)
[2024-11-24 06:44] LABS: Albumin/Globulin Ratio 1.6 (1.1-1.8); Calcium 8.4 mg/dl (8.4-10.2); Globulin 2.3 g/dL (1.3-3.2); Glucose 102 mg/dl (74-100); Magnesium 1.8 mg/dl (1.6-2.3); Total Protein,Serum 5.9 g/dl (6.3-8.2)
[2024-11-24 07:29] VITALS: BP 117/49; PULSE 70; RESP 16; TEMP 36.5; O2SAT 96
[2024-11-24 08:00] VITALS: PULSE 70
[2024-11-24] MEDS: LORATADINE 10MG TABLET 10 MG PO (08:29)
[2024-11-24] MEDS: dilTIAZem HCL 180MG CAP.ER.24H 180 MG PO (08:29)
[2024-11-24] MEDS: ONDANSETRON 4MG ODT 4 MG SL (10:00)
--- NOTE | 2024-11-24 10:25 | EXP.CARD.PN ---
Subjective Subjective Date: 11/24/24 Time: 09:00 Principal diagnosis: Atrial fibrillation with RVR, sinus bradycardia, tachybrady syndrome Interval history: The patient was admitted to the hospital with atrial fibrillation with RVR. When she converted she was in sinus rhythm. 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 She tolerated the procedure well. She did have some pain through the night last night and does have a small hematoma. Her hematoma does look better today. Will hold her anticoagulation today as well due to the hematoma. She is currently pacing. She denies any chest pain or pressure. She denies any shortness of breath or edema. She states that she does have a little bit of nausea today Which is likely from the anesthesia and pain medications that she got yesterday. She denies any fever, chills, and diarrhea. Exam Data for Last 24 hours Vital signs and Labs for Last 24 Hours: Temp Pulse Resp BP Pulse Ox O2 Del Method 97.7 F 70 16 117/49 L 96 Room Air 11/24/24 07:29 11/24/24 07:29 11/24/24 07:29 11/24/24 07:29 11/24/24 07:29 11/24/24 07:29 Laboratory Results - last 24 hr 11/24/24 06:08: WBC 8.7 D, RBC 4.10 L, Hgb 12.6, Hct 38.1, MCV 92.9, MCH 30.7, MCHC 33.1, RDW 13.6, Plt Count 489 H, MPV 10.9 H, Neut % (Auto) 72.5, Lymph % (Auto) 16.8, [place] % (Auto) 9.0, Eos % (Auto) 1.2, Baso % (Auto) 0.3, Neut # (Auto) 6.3, Lymph # (Auto) 1.5, [place] # (Auto) 0.8, Eos # (Auto) 0.1, Baso # (Auto) 0.0, Sodium 136, Potassium 4.0, Chloride 106, Carbon Dioxide 22, Anion Gap 12.0, BUN 26 H, Creatinine 0.90, Estimated Creat Clear 48, Estimated GFR 60, Est GFR ( Amer) 73, Glucose 102 H, Calcium 8.4, Magnesium 1.8, Total Bilirubin 1.1, AST 34 D, ALT 15, Alkaline Phosphatase 55, Total Protein 5.9 L, Albumin 3.6, Globulin 2.3, Albumin/Globulin Ratio 1.6 I & O for Last 24 hours: Intake & Output 11/21/24 11/22/24 11/23/24 11/24/24 23:59 23:59 23:59 23:59 Intake Total 160 / 160 636 / 636 Output Total 750 / 750 450 / 450 Balance -590 / -590 186 / 186 Weight 155 lb 153 lb 154 lb 8 oz Constitutional Constitutional: no acute distress and average body habitus *Routine HEENT Exam Head: Present normocephalic and atraumatic ENT: Present mucous membranes moist *Routine Neck Exam Neck: Present supple, full ROM and normal carotid upstroke; Absent JVD, carotid bruit or lymphadenopathy *Routine Respiratory Exam Respiratory: Present CTA bilaterally, normal respiratory effort, able to speak in complete sentences and symmetric chest movement *Routine Cardiovascular Exam Cardiovascular: Present RRR, Normal S1 and Normal S2; Absent murmur or gallop *Routine Abdominal Exam Abdominal: Present soft and normoactive bowel sounds; Absent tenderness, distended or organomegaly *Routine Extremities Exam Extremities: Present full ROM, pulses intact and normal capillary refill; Absent cyanosis, clubbing or edema *Routine Skin Exam Skin: Present intact and warm; Absent erythema *Routine Neurological Exam Neurological: Present alert, oriented X3 and CN II-XII intact; Absent sensory deficit or motor deficit Routine Psychiatric Exam Psychiatric: Present normal affect Progress Note: A&P Assessment and plan (1) Tachy-carlos syndrome: Status: Acute (2) Atrial fibrillation with rapid ventricular response: Status: Acute (3) Hypertension: Status: Acute (4) HLD (hyperlipidemia): Status: Chronic (5) Bradycardia, sinus: Status: Acute (6) GERD (gastroesophageal reflux disease): Status: Acute (7) HHD (hypertensive heart disease): Status: Chronic (8) CAD (coronary artery disease): Status: Chronic Assessment and Plan Assessment and Plan for All Diagnoses:: Plan: 1. The patient presented to the emergency department with atrial fibrillation with RVR. She was treated with diltiazem and converted to sinus bradycardia. She underwent permanent pacemaker placement yesterday and tolerated this procedure well. She does have a small hematoma noted at the insertion site with a small amount of bloody drainage. 2. I have gone over to the restrictions for the patient again today. She is to do no lifting with her left upper extremity for 4 to 6 weeks. No lifting at the shoulder level or above for 4 to 6 weeks. No reaching in front of her or reaching behind her with the left upper extremity for 4 to 6 weeks. 3. The patient will likely need some as needed pain medications at discharge for postop pain. She will also need Zofran for nausea. 4. Mild nonocclusive CAD is present. She ruled out for an ND. She denies chest pain or pressure. No plans for left cardiac catheterization at this time. 5. Her blood pressure is acceptable at this time. 6. Her LDL goal is less than 55. Her LDL is 44. She is on a statin. 7. Paroxysmal atrial fibrillation is present. She is on diltiazem for rate control. Stop sotalol. 8. The patient is on Xarelto for long-term anticoagulation for her paroxysmal atrial fibrillation. 9. No further recommendations at this time from a cardiac standpoint. She can be discharged home from a cardiac standpoint. She will need to follow-up in cardiology clinic in 1 week for staple removal. The patient can be discharged on the following cardiac medications: Lipitor 40 mg p.o. nightly Diltiazem ER 180 mg daily Xarelto 20 mg at bedtime Thank you for the opportunity to participate in the care of this patient. All recommendations and orders are per Dr. Laguerre.
--- NOTE | 2024-11-25 10:20 | SW/DCPLANNER ---
Spoke with patient on the phone. Patient asked me to speak to her daughter. Patient's daughter stated that she is doing okay. Patient's daughter stated that she is aware of her upcoming appointment. Patient's daughter stated that she was able to get her new medicine picked up from clinic pharmacy. Patient's daughter stated that she did have some questions regarding her mothers medicine. I transferred the patient's daughter to Ruthann Frazier RN. Patient's daughter stated that she has no concerns or questions at this time. Dalton Gibbs
== END 2024-11-24 13:26 | disposition home or self-care (01) ==
LOC: ER 09:33 → ICU 12:06 → 2ND 17:33
PROVIDERS: Internal Medicine; Nurse Practitioner Family; Admitting Provider Internal Medicine Adolescent Medicine; Emergency Provider Student in an Organized Health Care Education/Training Program; PCP Internal Medicine Adolescent Medicine; Visit Provider Internal Medicine Adolescent Medicine
PROC: (CPT 33208; principal; 2024-11-23 08:30)
DX: I49.5 Sick sinus syndrome (principal); I48.20 Chronic atrial fibrillation, unspecified; E78.2 Mixed hyperlipidemia; I11.9 Hypertensive heart disease without heart failure; I31.39 Other pericardial effusion (noninflammatory); K21.9 Gastro-esophageal reflux disease without esophagitis; I25.10 Atherosclerotic heart disease of native coronary artery without angina pectoris; Z79.899 Other long term (current) drug therapy; Z88.1 Allergy status to other antibiotic agents; Z88.0 Allergy status to penicillin; Z88.2 Allergy status to sulfonamides; Z88.8 Allergy status to other drugs, medicaments and biological substances; Z91.048 Other nonmedicinal substance allergy status; Z86.16 Personal history of COVID-19
CPT/HCPCS: 33208; 36415; 71045; 80053; 80061; 80076; 83690; 83735; 83880; 84484; 85025; 85610; 85730; 93005; 99285; C1785; C1898; G0378; J0736; J2004; J2405; J2704; Q0162

== ENCOUNTER 2024-11-28 11:10 | Inpatient (IN) | payer MEDICARE, SELFPAY ==
[2024-11-28] VITALS (31 sets, daily range): BP systolic 104–152; BP diastolic 45–73; PULSE 61–140; RESP 11–34; TEMP 36.7–37; O2SAT 95–99; BMI 25.0
--- NOTE | 2024-11-28 11:21 | ECG_ITS ---
APPROVED REPORT Exam: Resting ECG HR:123 bpm ECG Measurements Heart Rate 123 AXES QRSd 86 QRS 49 QT 290 T 224 QTc 363 Conclusion ATRIAL FIBRILLATION WITH RAPID VENTRICULAR RESPONSE ST DEVIATION AND MODERATE T-WAVE ABNORMALITY, CONSIDER LATERAL ISCHEMIA [-0.1+ mV T-WAVE IN I/aVL/V5/V6] ST DEVIATION AND MODERATE T-WAVE ABNORMALITY, CONSIDER INFERIOR ISCHEMIA [-0.1+ mV T-WAVE IN II/aVF] ABNORMAL ECG UNCONFIRMED REPORT Electronically signed by : MARLA MULTANI, 11/28/2024 23:09:11
--- NOTE | 2024-11-28 11:22 | XR_ITS ---
FINAL REPORT CLINICAL HISTORY: Shortness of breath COMPARISON: 11/23/2024 FINDINGS: A portable view of the chest was obtained. There has been no change in the left pacemaker. The heart is stable in size.. The lungs are clear. There is no pleural effusion or pneumothorax. IMPRESSION: No acute process on this portable exam. Reviewed, Interpreted and Dictated by Shaniqua Manning MD Transcribed by Karina Lucero Authenticated and [facility]
--- NOTE | 2024-11-28 11:22 | ED_ITS ---
<Statement entered by Juan Diego Barbosa MD - 11/28/24 15:10> I was consulted by the ALTHEA, and we discussed the complexity of the problems being addressed. I approve the treatment and management plan for this patient's care in the emergency department, thus performing a substantive portion of the medical decision making. Juan Diego Barbosa MD Discharge Plan Disposition Patient Disposition: Admitted Condition: Good Clinical Impressions Clinical Impression: Paroxysmal A-fib, Status post cardiac pacemaker procedure Discharge ED Provider: Juan Diego Barbosa General Adult HPI General Chief complaint: Syncope Stated complaint: low bp, almost passed out in dr office Time Seen by Provider: 11/28/24 11:13 Mode of Arrival: Ambulatory Source of Information: Patient Limitations: No Limitations History of Present Illness HPI narrative: 84-year-old female presents to the emergency department accompanied by her family members for a near syncopal episode, patient states she was attending her follow-up outpatient appointment, she is approximately 5 days status post pacemaker insertion for atrial fibrillation, has had uncomplicated post procedural/postoperative state thus far with the exception of nausea and some lightheadedness/shortness of breath worse with exertion that started last night, patient states that when she went from the waiting room to go back to the doctor's office/exam room she began having some shortness of breath lightheadedness and near syncopal event, patient denies any fever or chills, admits to chest wall pain at the pacemaker insertion site, admits to shortness of breath, worse with exertion, denies any abdominal pain but does admit to nausea no vomiting no constipation no diarrhea, except for 1 episode of diarrhea several days ago, this is since improved, no urinary symptomatology, unknown substance abuse/use history, other past medical history consistent with hyperlipidemia, coronary artery disease, GERD, tachybradycardia syndrome, paroxysmal atrial fibrillation, on anticoagulation therapy with Xarelto. Initial triage vitals notable for tachycardia otherwise unremarkable. Please note that above description of symptoms, in this electronic medical record under categorization of recalled from ER triage doctor by RN are reflective of an initial nursing assessment, however, is not reflective of my full history and physical exam that was personally taken and clarified. Consequentially, this preceding description of symptoms, which may include the patient's categorized chief complaint in the EMR, do not reflect my personal clinical impression, and the ultimate description of history of present illness and patient stated complaints should be deferred to this section of the note. Unless stated otherwise or congruent with this section of the note, additional signs, symptoms, or incongruence should be interpreted as inaccurate with my clinical impression. Onset (ago): day(s) Related Data Home Medications ?Medication ?Instructions ?Recorded ?Confirmed omeprazole 20 mg tablet,delayed 20 mg PO DAILY 0 11/28/24 release cholecalciferol (vitamin D3) 25 25 mcg PO DAILY 11/28/24 mcg (1,000 unit) capsule cetirizine 10 mg tablet (Zyrtec) 5 mg PO HS 02/04/24 0 11/28/24 rivaroxaban 20 mg tablet (Xarelto) 20 mg PO QPMWITHMEA L 11/28/24 11/28/24 Previous Rx's ?Medication ?Instructions ?Recorded atorvastatin 40 mg tablet 40 mg PO HS #90 tabs 5 diltiazem HCl 180 mg 180 mg PO DAILY 30 days #30 caps 11/23/24 capsule,extended release 24 hr Allergies Allergy/AdvReac Type Severity Reaction Status Date / Time amoxicillin Allergy Severe Unknown Verified 11/07/24 10:43 allergy reaction metronidazole (From Flagyl) Allergy Severe Unknown Verified 11/07/24 10:43 allergy reaction protectives, O.U. (From Allergy Severe Unknown Verified 11/07/24 10:43 Sensi-Care (foam)) allergy reaction Penicillins Allergy Intermediate EDEMA Verified 11/07/24 10:43 apixaban (From Eliquis) Allergy Mild Rash Verified 11/07/24 10:43 Sulfa (Sulfonamide Allergy Unknown Unknown Verified 11/07/24 10:43 Antibiotics) (SULFA allergy (SULFONAMIDE ANTIBIOTICS)) reaction adhesive tape Allergy Unknown Verified 11/07/24 10:43 allergy reaction amiodarone AdvReac Mild GI UPSET Verified 11/07/24 10:43 acetaminophen AdvReac Nausea Verified 11/07/24 10:43 [facility] Disclaimer: The information contained in this section may have been updated after the patient was seen, as this information can be updated by other users. Medical History (Updated 11/28/24 @ 12:36 by LUAN Rust) Elevated brain natriuretic peptide (BNP) level Symptomatic bradycardia Urinary tract infection Shortness of Breath Tingling of face Visual disturbance Tinnitus Headache COVID-19 Diarrhea Arthritis Kidney stones Skin cancer A-fib Arrhythmia GERD (gastroesophageal reflux disease) HTN (hypertension) Osteoporosis HLD (hyperlipidemia) Atherosclerotic cardiovascular disease CAD (coronary artery disease) Surgical History (Updated 11/28/24 @ 12:36 by LUAN Rust) Hx of local excision of skin lesion History of cardiac catheterization History of tonsillectomy Family History Mother Cancer Father Cancer Other No significant family history Social History Smoking Status: Never smoker alcohol intake: never substance use type: denies use current occupational status: retired Travel in the last 8 weeks?: None household members: spouse housing: house 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 caffeine: No Have you lived/traveled outside [place] in past 30 days?: No Contact w/someone who lives/traveled outside US past 30 days?: No Exposure to someone with infectious disease in past 14 days?: No Do you have a fever (greater than 100.4 F or 38 C)?: No Have you tested positive for COVID-19?: No Exposed to someone with COVID-19 in past 14 days?: No Do you have a sore throat?: No Do you have a cough?: No Do you have any weakness?: No Do you have any diarrhea?: No Are you experiencing any unusual bleeding?: No Do you have any muscle aches/pain?: No Do you have any abdominal pain?: No Are you experiencing loss of taste or smell?: No Other Medical History Have you received the Flu Vaccine for this season: No Have you received the Pneumonia Vaccine: No ROS Obtained: Yes All systems reviewed & no additional complaints except as documented Physical Exam General General appearance: alert and in no apparent distress Head Head exam: atraumatic and normocephalic Eye Eye exam: Present PERRL and EOMI ENT ENT exam: Present mucous membranes moist Neck Neck exam: Present normal inspection Chest Chest inspection: Present normal inspection, symmetric chest wall rise, tenderness and other (Left-sided tenderness over the chest wall, with ecchymosis and hematoma are over the pacemaker insertion site on the left) Respiratory Respiratory exam: Present normal lung sounds bilaterally; Absent respiratory distress Cardiovascular Cardiovascular exam: Present tachycardia; Absent regular rate or normal rhythm Abdominal Exam Abdominal exam: Present soft; Absent tenderness, guarding, rebound or rigidity Extremities Exam Extremities exam: Present normal inspection Neurological Exam Neurological exam: Present alert and oriented X3 Psychiatric Psychiatric exam: Present normal affect Skin Skin exam: Present warm and dry Medical Decision Making Medical Records Medical records reviewed: Yes I reviewed the patient's medical records. Screening: Per USPSTF and CDC recommendations, given the prevalence of disease in our region, it is our hospital?s policy to screen for HIV and viral Hepatitis for all patients aged 18 and over and those with ongoing risk factors. Rod Inquiry Pt receiving controlled substance: No Rod was queried for this patient: No Vital Signs: 11/28/24 11:21 11/28/24 11:28 11/28/24 11:30 Temperature 98.6 F Temperature Source Oral Pulse Rate 120 H 65 Pulse Rate [Orthostatic Lying Right] Pulse Rate [Orthostatic Sitting Right] Pulse Rate [Orthostatic Standing Right] Pulse Rate [Radial] 140 H Respiratory Rate 15 21 15 Blood Pressure 119/64 119/64 Blood Pressure [Orthostatic Lying Right Arm] Blood Pressure [Orthostatic Sitting Right Arm] Blood Pressure [Orthostatic Standing Right Arm] Blood Pressure [Right Arm] 133/62 Blood Pressure Mean [Right Arm] 85 Blood Pressure Source [Right Arm] Automatic Cuff Blood Pressure Position Sitting Blood Pressure Position [Right Arm] Sitting 02 Sat by Pulse Oximetry 98 98 97 Oxygen Delivery Method Room Air Room Air 11/28/24 11:43 11/28/24 11:44 11/28/24 11:46 Temperature Temperature Source Pulse Rate 93 H 61 64 Pulse Rate [Orthostatic Lying Right] Pulse Rate [Orthostatic Sitting Right] Pulse Rate [Orthostatic Standing Right] Pulse Rate [Radial] Respiratory Rate 15 16 18 Blood Pressure 116/60 104/55 L 109/51 L Blood Pressure [Orthostatic Lying Right Arm] Blood Pressure [Orthostatic Sitting Right Arm] Blood Pressure [Orthostatic Standing Right Arm] Blood Pressure [Right Arm] Blood Pressure Mean [Right Arm] Blood Pressure Source [Right Arm] Blood Pressure Position Blood Pressure Position [Right Arm] 02 Sat by Pulse Oximetry 95 96 96 Oxygen Delivery Method 11/28/24 11:52 11/28/24 12:00 11/28/24 12:30 Temperature Temperature Source Pulse Rate 72 84 Pulse Rate [Orthostatic Lying Right] 100 H Pulse Rate [Orthostatic Sitting Right] 111 H Pulse Rate [Orthostatic Standing Right] 118 H Pulse Rate [Radial] Respiratory Rate 17 16 Blood Pressure 109/52 L 119/63 Blood Pressure [Orthostatic Lying Right Arm] 116/60 Blood Pressure [Orthostatic Sitting Right Arm] 104/55 L Blood Pressure [Orthostatic Standing Right Arm] 109/51 L Blood Pressure [Right Arm] Blood Pressure Mean [Right Arm] Blood Pressure Source [Right Arm] Blood Pressure Position Blood Pressure Position [Right Arm] 02 Sat by Pulse Oximetry 95 97 Oxygen Delivery Method 11/28/24 13:30 11/28/24 14:00 11/28/24 14:05 Temperature 98.0 F Temperature Source Pulse Rate 79 86 81 Pulse Rate [Orthostatic Lying Right] Pulse Rate [Orthostatic Sitting Right] Pulse Rate [Orthostatic Standing Right] Pulse Rate [Radial] Respiratory Rate 18 13 18 Blood Pressure 121/64 113/62 113/62 Blood Pressure [Orthostatic Lying Right Arm] Blood Pressure [Orthostatic Sitting Right Arm] Blood Pressure [Orthostatic Standing Right Arm] Blood Pressure [Right Arm] Blood Pressure Mean [Right Arm] Blood Pressure Source [Right Arm] Blood Pressure Position Sitting Blood Pressure Position [Right Arm] 02 Sat by Pulse Oximetry 97 96 Oxygen Delivery Method Room Air Lab Data Lab results reviewed: Yes I reviewed the patient's lab results. Lab Results 11/28/24 11:20: WBC 9.7, RBC 4.70, Hgb 14.4, Hct 43.1, MCV 91.7, MCH 30.6, MCHC 33.4, RDW 13.8, Plt Count 502 H, MPV 10.7 H, Neut % (Auto) 72.4, Lymph % (Auto) 17.1, [place] % (Auto) 7.2, Eos % (Auto) 2.3, Baso % (Auto) 0.8, Neut # (Auto) 7.1, Lymph # (Auto) 1.7, [place] # (Auto) 0.7, Eos # (Auto) 0.2, Baso # (Auto) 0.1, Sodium 141, Potassium 4.0, Chloride 104, Carbon Dioxide 28, Anion Gap 13.0, BUN 19 H, Creatinine 0.80, Estimated Creat Clear 47, Estimated GFR 69, Est GFR ( Amer) 83, Glucose 132 H, Calcium 9.4, Magnesium 1.7, Total Bilirubin 1.3, AST 41 H, ALT 19, Alkaline Phosphatase 58, Troponin I 0.03, NT-Pro-B Natriuret Pep 2430 H, Total Protein 7.4 D, Albumin 4.5, Globulin 2.9, Albumin/Globulin Ratio 1.6 11/28/24 11:20 11/28/24 11:20 Orders (Tests/Meds): ED MEDICATIONS Generic Name Dose Route Start Last Admin Trade Name Freq PRN Reason Stop Dose Admin Miscellaneous 1 each 11/28/24 23:59 Tikosyn (Dofetilide) 250 Mcg PO 12/28/24 23:58 BID AUDELIA Discontinued Medications Generic Name Dose Route Start Last Admin Trade Name Freq PRN Reason Stop Dose Admin Miscellaneous 1 each 11/28/24 14:00 11/28/24 14:10 Tikosyn (Dofetilide) 250 Mcg PO 11/28/24 14:01 1 each ONCE ONE Administration Ondansetron HCl 4 mg 11/28/24 11:37 11/28/24 11:55 Ondansetron 4mg/2ml Vial IV 11/28/24 11:38 Not Given ONCE ONE ORDERS Category Date Time Status Consult to Cardiology [CONS] Routine Cons 11/28/24 11:58 Active XR chest portable Stat Exams 11/28/24 11:22 Completed Complete Blood Count Auto Diff Stat Lab 11/28/24 11:20 Completed Comprehensive Metabolic Panel Stat Lab 11/28/24 11:20 Completed Magnesium Stat Lab 11/28/24 11:20 Completed NT Pro Brain Natriuretic Pep. Stat Lab 11/28/24 11:20 Completed Troponin I Q3H Lab 11/28/24 14:30 Ordered Troponin I Q3H Lab 11/28/24 17:30 Ordered Troponin I Stat Lab 11/28/24 11:20 Completed Urinalysis and Microscopic Stat Lab 11/28/24 13:46 Received Medical Decision Narrative: 84-year-old female presents the emergency department with a presyncopal event lightheadedness nausea and shortness of air, differential diagnose include but not limited to cardiac arrhythmia, electrolyte disturbance, situational syncope, cardiogenic syncope, vasovagal syncope, posterior syncope, orthostatic hypotension, pacemaker malfunction, ACS, costochondritis, hypovolemia, postoperative pain among others. Will obtain basic laboratory studies, magnesium level, proBNP, troponin, chest x-ray, urinalysis, EKG and CXR, 4 mg IV Zofran for nausea, will also obtain orthostatic vital signs, CMP is noted for elevated BUN at 19 which is minimal, and minimal AST elevation of 41. CBC is notable for thrombocytosis 502, otherwise unremarkable CMP notable for elevated BNP, troponin 0.03. I had an interactive discussion with the on-call heavy duty mechanic farm equipment Dr. Douglas discussing the patient's case at approximately 11:50 PM, he states he will come to the emergency department examine the patient's pacemaker insertion site/hematoma at the bedside, would possibly recommend admission after he sees and examined the patient. Orthostatic vital signs negative here in the emergency department, heart rate did increase when going from sitting to standing position, blood pressure nonsignificant change to necessitate orthostatic as no 20mmhg drop in the emergency department. I discussed this patient's case in person with the art gilder at approximately 12:20 PM, he recommends admission after seen and examined the patient at the bedside, he wants to start the patient on Tikosyn and follow-up with admission. Attempted to call hospitalist at approximately 12:25pm no answer will call back. I discussed this patient's case with the hospitalist physician via telephone at approximately 12:30 PM, he is in agreement with the current admission plan/treatment plan with cardiology to follow for atrial fibrillation in the setting of recent new pacemaker insertion. I had another discussion with hospitalist physician at approximately 12:41pm, he would like to discuss the patient's case with heavy duty mechanic farm equipment prior to admission, thus will hold admission at this time, due to possible unavailability of Tikosyn pharmacologic agent here in the hospital at this time. I discussed this patient's case in person with art gilder at a approximately 1:45 PM, he states that the patient's Tikosyn medication will be getting delivered, recommends admission. Discussed this with hospitalist via messaging at approximately 1:51 PM he is in agreement with current admission plan/treatment plan. I reviewed the patient's chest x-ray along the corresponding radiologic report, no acute process on portable exam. Critical Care Critical Care Time Critical Care Time: No
[2024-11-28 11:37] LABS: Albumin Level 4.5 g/dl (3.5-5.0); Chloride 104 mmol/L (98-107); Hematocrit 43.1 % (37.0-47.0); Hemoglobin 14.4 g/dL (12.2-16.2); Immature Granulocytes % 0.2 %; Mean Corpuscular HGB Conc 33.4 g/dL (31.8-35.4); Mean Corpuscular Hemoglobin 30.6 pg (27.0-31.2); Mean Corpuscular Volume 91.7 fl (81-99); Nucleated Red Blood Cells % 0 %; Platelet Count 502 K/mm3 (142-424); Potassium 4.0 mmoL/L (3.5-5.1); Red Blood Count 4.70 M/mm3 (4.20-5.40); Red Cell Distribution Width-SD 46.5 fL; Sodium 141 mmol/L (136-145); White Blood Count 9.7 K/mm3 (4.8-10.8)
[2024-11-28 11:39] LABS: Blood Urea Nitrogen 19 mg/dl (7-17); Creatinine Clearance Estimated 47 mL/min (50-200); Creatinine,Serum 0.80 mg/dl (0.52-1.04); Estimated Glomerular Filt Rate 69 ml/min (>60); GFR (African American) 83 ML/MIN (>60)
[2024-11-28 11:40] LABS: Alanine Aminotransferase 19 U/L (12-78); Albumin/Globulin Ratio 1.6 (1.1-1.8); Alkaline Phosphatase 58 U/L (38-126); Anion Gap 13.0 mEq/L (5-15); Aspartate Amino Transferase 41 U/L (14-36); Bilirubin,Total 1.3 mg/dl (0.2-1.3); Calcium 9.4 mg/dl (8.4-10.2); Carbon Dioxide 28 mmol/L (22.0-30.0); Globulin 2.9 g/dL (1.3-3.2); Glucose 132 mg/dl (74-100); Total Protein,Serum 7.4 g/dl (6.3-8.2)
[2024-11-28 11:41] LABS: Magnesium 1.7 mg/dl (1.6-2.3)
[2024-11-28 11:49] LABS: NT Pro Brain Natriuretic Pep. 2430 pg/mL (0-450)
--- NOTE | 2024-11-28 11:50 | PC.NURSE ---
Dr. Douglas paged.
[2024-11-28 11:52] LABS: Troponin I 0.03 ng/ml (0.00-0.034)
--- OUTSIDE RECORDS SUMMARY | 2024-11-28 12:00 | XMS_ITS | Clinical Summary ---
Author Organization [facility] Address [address] [place] [address] Care Team Providers Care Intraoperative Neuro Tech Name Role Phone [place] Love MD Primary Care Provider [phone] Allergies Active Allergy Reactions Criticality Noted Date [...] or (1 - 1-dose 75+ series) 2017 [id number] Vaccine (3 - 2023- season) 2023 06/13/2020, [...] to complete this topic Insurance [place] [id number] [place] [address] [employer] Care Teams Intraoperative Neuro Tech Relationship Specialty Start Date End Date Allen Lvoe MD [address] [place] [address] [place] [id number] PCP - General 08/17/20
--- OUTSIDE RECORDS SUMMARY | 2024-11-28 12:00 | XMS_ITS | Clinical Summary ---
Author Organization [facility] Address [address] [place] [phone] Phone Care Team Providers Care Transmission Mechanic Name Role Phone Tim Bansal MD Unavailable [ ] Conditions or Problems Problem Name Problem Code Onset Date Status Entry Date Provider Comment Standard Description Annotate Benign Essential Hypertension 17088105 (SNOMED CT) Active Daxa Cee Benign hypertension C. Difficile colitis 162391562 (SNOMED CT) Active Daxa Cee Clostridium difficile colitis Medications Medication Instructions Start Date Stop Date Generic Name NDC Provider CVS OMEPRAZOLE 20 MG TBEC QD OMEPRAZOLE [id number] Sharmila Marin ATENOLOL 50 MG TABS QD ATENOLOL [id number] Sharmila Marin VANCOCIN HCL 125 MG ORAL CAPSULE QID VANCOMYCIN HCL [id number] Sharmila Marin Medications Administered No information available. 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 Procedures No information available. Vital Signs No information available. Immunizations No information available. Advance Directives No information available.
--- NOTE | 2024-11-28 12:04 | PC.NURSE ---
Attempted to contact the hospitalist about possible admisison.
--- NOTE | 2024-11-28 12:17 | PC.NURSE ---
bedside speaking with the pt
--- NOTE | 2024-11-28 12:25 | PC.NURSE ---
Ana Laura ROLAND attempted to contact the hospitalist about possible admisison.
--- NOTE | 2024-11-28 12:30 | PC.NURSE ---
Ana Laura ROLAND speaking with the hospitalist about possible admission.
--- NOTE | 2024-11-28 12:33 | PC.NURSE ---
I notified HS of the need for a bed to admit the pt for a. fib with recent pacemaker placement.
--- NOTE | 2024-11-28 12:39 | PC.NURSE ---
Ana Laura ROLAND attempted to contact the hospitalist about possible admisison.
--- NOTE | 2024-11-28 12:48 | PC.NURSE ---
pt. stated they did not need anything at this time
--- NOTE | 2024-11-28 12:49 | PC.NURSE ---
pts admission is on hold per , he is reaching out to .
--- NOTE | 2024-11-28 13:21 | PC.NURSE ---
ROUNDED ON PT, UPDATED ON POC. NO NEEDS AT THIS TIME. CALL LIGHT WITHIN REACH
--- NOTE | 2024-11-28 13:32 | PC.NURSE ---
pt taken to the bathroom, will collect urine sample if able.
--- NOTE | 2024-11-28 13:46 | PC.NURSE ---
DR HURLEY AT BEDSIDE
--- NOTE | 2024-11-28 13:46 | PC.NURSE ---
has agreed to admit the pt here under the hospitalists care.
[2024-11-28 13:53] LABS: Microscopic, Urine URINE MICROSCOPIC (MICROSCOPIC)
[2024-11-28 13:56] LABS: Bilirubin,Urine Negative (Negative); Color,Urine YELLOW (Yellow); Glucose,Urine (UA) Negative (Negative); Ketones,Urine TRACE (Negative); Leukocyte Esterase,Urine 1+ (Negative); PH,Urine 7.0 (5.0-8.5); Protein,Urine Negative (Negative); Specific Gravity, Urine 1.010 (1.005-1.030); Urobilinogen,Urine 1.0 EU/dl (0.2)
--- NOTE | 2024-11-28 14:03 | HMH.PHAINT1 ---
Pharmacy Intervention Comments: MEDICATION RECONCILIATION COMPLETED ON PATIENT USING EXTERNAL FILL HISTORY FROM PHARMACY AND DISCHARGE SUMMARY FROM PREVIOUS ADMISSION. -CLARENCE KIM, QUAND
[2024-11-28] MEDS: TIKOSYN 250 MCG 1 EACH PO ×2 (14:10→23:35)
--- NOTE | 2024-11-28 14:14 | EXP.CARD.CON ---
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 Of note patient was dc home on Diltizem 180 for afib during last visit. Patient historically has been hard to rate control due to not being able to tolerate multiple medications including metoprolol, amiodarone and sotalol due to fatigue and bradycardia. Upon presentation to ER EKG shows A-fib RVR at a rate of 120. Troponin 0.03 and proBNP 2430. Chest x-ray negative for acute process. Per Dr. Douglas we will admit patient and start her on Tikosyn. If patient does not convert to normal sinus rhythm then we will consider HUMBERTO/cardioversion tomorrow. [facility] Disclaimer: The information contained in this section may have been updated after the patient was seen, as this information can be updated by other users. Medical History (Updated 11/28/24 @ 14:39 by Kirstie Weinberg RN) Pacemaker Elevated brain natriuretic peptide (BNP) level Symptomatic bradycardia Urinary tract infection Shortness of Breath Tingling of face Visual disturbance Tinnitus Headache COVID-19 Diarrhea Arthritis Kidney stones Skin cancer A-fib Arrhythmia GERD (gastroesophageal reflux disease) HTN (hypertension) Osteoporosis HLD (hyperlipidemia) Atherosclerotic cardiovascular disease CAD (coronary artery disease) Surgical History (Updated 11/28/24 @ 14:39 by Kirtsie Weinberg RN) History of permanent cardiac pacemaker placement Hx of local excision of skin lesion History of cardiac catheterization History of tonsillectomy Family History Mother Cancer Father Cancer Other No significant family history Social History Smoking Status: Never smoker alcohol intake: never substance use type: denies use current occupational status: retired Travel in the last 8 weeks?: None household members: spouse housing: house 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 caffeine: No Have you lived/traveled outside US in past 30 days?: No Contact w/someone who lives/traveled outside US past 30 days?: No Exposure to someone with infectious disease in past 14 days?: No Do you have a fever (greater than 100.4 F or 38 C)?: No Have you tested positive for COVID-19?: No Exposed to someone with COVID-19 in past 14 days?: No Do you have a sore throat?: No Do you have a cough?: No Do you have any weakness?: No Do you have any diarrhea?: No Are you experiencing any unusual bleeding?: No Do you have any muscle aches/pain?: No Do you have any abdominal pain?: No Are you experiencing loss of taste or smell?: No Review of Systems Review of Systems Review of systems:: pertinent systems reviewed and negative unless documented below Constitutional Comments: weakness Exam Data for Last 24 hours Vital signs and Labs for Last 24 Hours: Temp Pulse Resp BP Pulse Ox O2 Del Method 98.0 F 81 18 113/62 95 Room Air 11/28/24 14:05 11/28/24 14:05 11/28/24 14:05 11/28/24 14:05 11/28/24 12:00 11/28/24 14:05 Laboratory Results - last 24 hr 11/28/24 11:20: WBC 9.7, RBC 4.70, Hgb 14.4, Hct 43.1, MCV 91.7, MCH 30.6, MCHC 33.4, RDW 13.8, Plt Count 502 H, MPV 10.7 H, Neut % (Auto) 72.4, Lymph % (Auto) 17.1, [place] % (Auto) 7.2, Eos % (Auto) 2.3, Baso % (Auto) 0.8, Neut # (Auto) 7.1, Lymph # (Auto) 1.7, [place] # (Auto) 0.7, Eos # (Auto) 0.2, Baso # (Auto) 0.1, Sodium 141, Potassium 4.0, Chloride 104, Carbon Dioxide 28, Anion Gap 13.0, BUN 19 H, Creatinine 0.80, Estimated Creat Clear 47, Estimated GFR 69, Est GFR ( Amer) 83, Glucose 132 H, Calcium 9.4, Magnesium 1.7, Total Bilirubin 1.3, AST 41 H, ALT 19, Alkaline Phosphatase 58, Troponin I 0.03, NT-Pro-B Natriuret Pep 2430 H, Total Protein 7.4 D, Albumin 4.5, Globulin 2.9, Albumin/Globulin Ratio 1.6 I & O for Last 24 hours: Intake & Output 11/25/24 11/26/24 11/27/24 11/28/24 23:59 23:59 23:59 23:59 Weight 150 lb Constitutional Constitutional: no acute distress Routine Chest/Breast/Axilla Exam Comments: Hematoma noted to pacemaker pocket and down left arm. No bleeding, warmth, redness present. *Routine Respiratory Exam Respiratory: Present CTA bilaterally and symmetric chest movement *Routine Cardiovascular Exam Cardiovascular: Present Normal S1, Normal S2, irregular rhythm and irregularly irregular *Routine Abdominal Exam Abdominal: Present soft and normoactive bowel sounds; Absent tenderness *Routine Extremities Exam Extremities: Present full ROM and normal capillary refill; Absent edema *Routine Skin Exam Skin: Present intact, dry and warm Detailed Neck Exam: Thyroids Thyroid: Absent bruit Meds Home Medications and Allergies Home Medications ?Medication ?Instructions ?Recorded ?Confirmed ?Type omeprazole 20 mg tablet,delayed 20 mg PO DAILY 03/17/20 11/28/24 History release cholecalciferol (vitamin D3) 25 25 mcg PO DAILY 11/14/20 11/28/24 History mcg (1,000 unit) capsule cetirizine 10 mg tablet (Zyrtec) 5 mg PO HS 02/04/24 11/28/24 History atorvastatin 40 mg tablet 40 mg PO HS #90 tabs 10/10/24 11/28/24 Rx diltiazem HCl 180 mg 180 mg PO DAILY 30 days #30 caps 11/23/24 11/28/24 Rx capsule,extended release 24 hr rivaroxaban 20 mg tablet (Xarelto) 20 mg PO QPMWITHMEAL 11/28/24 11/28/24 History New Prescriptions to Start Prescriptions: Allergies Allergy/AdvReac Type Severity Reaction Status Date / Time amoxicillin Allergy Severe Unknown Verified 11/07/24 10:43 allergy reaction metronidazole (From Flagyl) Allergy Severe Unknown Verified 11/07/24 10:43 allergy reaction protectives, O.U. (From Allergy Severe Unknown Verified 11/07/24 10:43 Sensi-Care (foam)) allergy reaction Penicillins Allergy Intermediate EDEMA Verified 11/07/24 10:43 apixaban (From Eliquis) Allergy Mild Rash Verified 11/07/24 10:43 Sulfa (Sulfonamide Allergy Unknown Unknown Verified 11/07/24 10:43 Antibiotics) (SULFA allergy (SULFONAMIDE ANTIBIOTICS)) reaction adhesive tape Allergy Unknown Verified 11/07/24 10:43 allergy reaction amiodarone AdvReac Mild GI UPSET Verified 11/07/24 10:43 acetaminophen AdvReac Nausea Verified 11/07/24 10:43 Assessment and Plan *Assessment and plan (1) Atrial fibrillation with RVR: Status: Acute Category: Medical Code(s): I48.91 - Unspecified atrial fibrillation (2) James-tachy syndrome: Status: Acute Category: Medical Code(s): I49.5 - Sick sinus syndrome (3) Status post cardiac pacemaker procedure: Status: Acute Category: Surgical Code(s): Z95.0 - Presence of cardiac pacemaker (4) CAD (coronary artery disease): Status: Chronic Qualifiers: Coronary Disease-Associated Artery/Lesion type: [place] artery [place] vs. transplanted heart: [place] heart Associated angina: without angina Qualified Code(s): I25.10 - Atherosclerotic heart disease of [place] coronary artery without angina pectoris Category: Medical Code(s): I25.10 - Atherosclerotic heart disease of [place] coronary artery without angina pectoris Plan Afib rvr Hx of tachybrady syndrome s/p dual chamber pacemaker Currently in afib rvr Hold diltiazem Start Tikosyn 250 mcg BID Hold anticoagulation per Dr. Douglas including lovenox due to pacemaker site hematoma If patient does not convert to NSR will consider HUMBERTO/Cardioversion in the am History of coronary artery disease Left heart catheterization April 2019 shows mild nonflow limiting mid LAD disease with normal EF and normal LVEDP Troponin negative CV summary 11/28/2024: Start Tikosyn 250 mcg BID. If patient does not convert to NSR then will consider HUMBERTO/Cardioversion tomorrow.
--- NOTE | 2024-11-28 14:23 | EXP.HP ---
History of Present Illness *Admission Date: 11/28/24 *Reason for visit:: Dizziness *History of present illness: Hazel Manning is a 84-year-old female with a medical history significant for refractory A-fib presented with 1 day history of dizziness, palpitations. She states she began experiencing the symptoms last night and thought it would get better, knew it was her A-fib. This morning, patient felt weak, dizzy, with palpitations so her brought her to the ED. Initial heart rate was in the 140s, A-fib RVR. Other vitals were stable. Unfortunately, patient's A-fib has been refractory to multiple AV araceli blockers and antiarrhythmics. Most recently discharged on diltiazem 180 mg ER, has been adherent to it. Case discussed extensively with Dr. Douglas by ED and me, ultimately recommended starting Tikosyn 250 mcg twice daily. Therefore, I decided to admit patient for close monitoring in the setting of Tikosyn loading. [facility] Disclaimer: The information contained in this section may have been updated after the patient was seen, as this information can be updated by other users. Medical History (Updated 11/28/24 @ 14:39 by Kirstie Weinberg RN) Pacemaker Elevated brain natriuretic peptide (BNP) level Symptomatic bradycardia Urinary tract infection Shortness of Breath Tingling of face Visual disturbance Tinnitus Headache COVID-19 Diarrhea Arthritis Kidney stones Skin cancer A-fib Arrhythmia GERD (gastroesophageal reflux disease) HTN (hypertension) Osteoporosis HLD (hyperlipidemia) Atherosclerotic cardiovascular disease CAD (coronary artery disease) Surgical History (Updated 11/28/24 @ 14:39 by Kirstie Weinberg RN) History of permanent cardiac pacemaker placement Hx of local excision of skin lesion History of cardiac catheterization History of tonsillectomy Family History Mother Cancer Father Cancer Other No significant family history Social History Smoking Status: Never smoker alcohol intake: never substance use type: denies use current occupational status: retired Travel in the last 8 weeks?: None household members: spouse housing: house 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 caffeine: No Other Medical History Have you received the Flu Vaccine for this season: No Have you received the Pneumonia Vaccine: No Meds Home Medications and Allergies Home Medications ?Medication ?Instructions ?Recorded ?Confirmed ?Type omeprazole 20 mg tablet,delayed 20 mg PO DAILY 03/17/20 11/28/24 History release cholecalciferol (vitamin D3) 25 25 mcg PO DAILY 11/14/20 11/28/24 History mcg (1,000 unit) capsule cetirizine 10 mg tablet (Zyrtec) 5 mg PO HS 02/04/24 11/28/24 History atorvastatin 40 mg tablet 40 mg PO HS #90 tabs 10/10/24 11/28/24 Rx rivaroxaban 20 mg tablet (Xarelto) 20 mg PO QPMWITHMEAL 11/28/24 11/28/24 History dofetilide 250 mcg capsule 250 mcg PO BID 30 days #60 caps 12/01/24 Rx (Tikosyn) metoprolol succinate 25 mg 12.5 mg (1/2 x 25 mg) PO DAILY 30 12/01/24 Rx tablet,extended release 24 hr days #15 tabs New Prescriptions to Start Prescriptions: fetildaniela [Tikosyn] Koffi Cook metoprolol succinate Koffi Cook Allergies Allergy/AdvReac Type Severity Reaction Status Date / Time amoxicillin Allergy Severe Unknown Verified 11/07/24 10:43 allergy reaction metronidazole (From Flagyl) Allergy Severe Unknown Verified 11/07/24 10:43 allergy reaction protectives, O.U. (From Allergy Severe Unknown Verified 11/07/24 10:43 Sensi-Care (foam)) allergy reaction Penicillins Allergy Intermediate EDEMA Verified 11/07/24 10:43 apixaban (From Eliquis) Allergy Mild Rash Verified 11/07/24 10:43 Sulfa (Sulfonamide Allergy Unknown Unknown Verified 11/07/24 10:43 Antibiotics) (SULFA allergy (SULFONAMIDE ANTIBIOTICS)) reaction adhesive tape Allergy Unknown Verified 11/07/24 10:43 allergy reaction amiodarone AdvReac Mild GI UPSET Verified 11/07/24 10:43 acetaminophen AdvReac Nausea Verified 11/07/24 10:43 Exam Data for Last 24 hours Vital signs and Labs for Last 24 Hours: Temp Pulse Resp BP Pulse Ox O2 Del Method 98.0 F 81 18 113/62 96 Room Air 11/28/24 14:05 11/28/24 14:05 11/28/24 14:05 11/28/24 14:05 11/28/24 14:00 11/28/24 14:05 Laboratory Results - last 24 hr 11/28/24 11:20: WBC 9.7, RBC 4.70, Hgb 14.4, Hct 43.1, MCV 91.7, MCH 30.6, MCHC 33.4, RDW 13.8, Plt Count 502 H, MPV 10.7 H, Neut % (Auto) 72.4, Lymph % (Auto) 17.1, [place] % (Auto) 7.2, Eos % (Auto) 2.3, Baso % (Auto) 0.8, Neut # (Auto) 7.1, Lymph # (Auto) 1.7, [place] # (Auto) 0.7, Eos # (Auto) 0.2, Baso # (Auto) 0.1, Sodium 141, Potassium 4.0, Chloride 104, Carbon Dioxide 28, Anion Gap 13.0, BUN 19 H, Creatinine 0.80, Estimated Creat Clear 47, Estimated GFR 69, Est GFR ( Amer) 83, Glucose 132 H, Calcium 9.4, Magnesium 1.7, Total Bilirubin 1.3, AST 41 H, ALT 19, Alkaline Phosphatase 58, Troponin I 0.03, NT-Pro-B Natriuret Pep 2430 H, Total Protein 7.4 D, Albumin 4.5, Globulin 2.9, Albumin/Globulin Ratio 1.6 I & O for Last 24 hours: Intake & Output 11/25/24 11/26/24 11/27/24 11/28/24 23:59 23:59 23:59 23:59 Weight 68.039 kg Constitutional Constitutional: no acute distress *Routine HEENT Exam Head: Present normocephalic Eye: Present EOMI and PERRL ENT: Present mucous membranes moist *Routine Neck Exam Neck: Present supple; Absent lymphadenopathy *Routine Respiratory Exam Respiratory: Present CTA bilaterally *Routine Cardiovascular Exam Cardiovascular: Present RRR *Routine Abdominal Exam Abdominal: Present soft and normoactive bowel sounds; Absent tenderness *Routine Rectal Exam Rectal:: deferred *Routine Genitalia Exam Genitalia:: deferred *Routine Extremities Exam Extremities: Absent cyanosis, clubbing or edema *Routine Skin Exam Skin: Present warm; Absent rash *Routine Neurological Exam Neurological: Present alert and oriented X3 Assessment and Plan *Assessment and plan (1) Atrial fibrillation with RVR: Status: Acute Category: Medical Code(s): I48.91 - Unspecified atrial fibrillation Plan Hazel Manning is a 84-year-old female with a medical history significant for refractory A-fib presented with 1 day history of dizziness, palpitations. She states she began experiencing the symptoms last night and thought it would get better, knew it was her A-fib. This morning, patient felt weak, dizzy, with palpitations so her brought her to the ED. Initial heart rate was in the 140s, A-fib RVR. Other vitals were stable. Unfortunately, patient's A-fib has been refractory to multiple AV araceli blockers and antiarrhythmics. Most recently discharged on diltiazem 180 mg ER, has been adherent to it. Case discussed extensively with Dr. Douglas by ED and me, ultimately recommended starting Tikosyn 250 mcg twice daily. Therefore, I decided to admit patient for close monitoring in the setting of Tikosyn loading. #Paroxysmal A-fib ? Presented with dizziness, shortness of breath, fatigue. Found to be in A-fib RVR in 130s. ? Unfortunately, patient's A-fib has been refractory to multiple AV araceli blockers and antiarrhythmics. Most recently discharged on diltiazem 180 mg ER, has been adherent to it but still went into AVR. ? Discussed with Dr. Douglas, started Tikosyn 250 mcg twice daily. Monitor QTc, daily EKGs. ? Hold home diltiazem, AV araceli blockers at this time. ? Continuous cardiac telemetry. ? Goal magnesium greater than 2, potassium greater than 4. ? Hold anticoagulation for now due to pacemaker hematoma. Hemoglobin 14.4. Peripheral pulses intact. #GERD ? Continue home PPI. Full code DVT prophylaxis: SCDs
[2024-11-28 15:04] LABS: Bacteria,Urine Trace /lpf; Squamous Epithelial Cell,Urine Occasional #/hpf (0-5)
[2024-11-28 15:17] LABS: Troponin I 0.03 ng/ml (0.00-0.034)
--- NOTE | 2024-11-28 17:45 | PC.NURSE ---
since arrival to floor patient has done well. daughter and at bedside. ambulated to bathroom. rhythm has been 80-90s sinus arrhythmia, with times of afib/aflutter. noted some paced beats. on room air. bruising noted to left breast all the way down left arm. no complaints of pain currently. per md should get ekg a couple hours past administration of tikosyn. order placed for one now, will relay to following shift. educated as needed. encouraged to ring out as needed.
--- NOTE | 2024-11-28 17:56 | ECG_ITS ---
APPROVED REPORT Exam: Resting ECG HR:85 bpm ECG Measurements Heart Rate 85 AXES TN 196 P 46 QRSd 85 QRS 32 QT 379 T 17 QTc [address] DEVIATION AND MODERATE T-WAVE ABNORMALITY, CONSIDER LATERAL ISCHEMIA [-0.1+ mV T-WAVE IN I/aVL/V5/V6] ABNORMAL ECG UNCONFIRMED REPORT Electronically signed by : MARLA MULTANI, 11/28/2024 23:17:19
[2024-11-28] MEDS: MAGNESIUM SULFATE IN WATER 2 GM/50 ML PIGGYBACK IV (18:13)
--- NOTE | 2024-11-28 23:29 | ECG_ITS ---
APPROVED REPORT Exam: Resting ECG HR:69 bpm ECG Measurements Heart Rate 69 AXES [place] 222 P 118 QRSd 84 QRS 69 QT 420 T 31 QTc 439 Conclusion ELECTRONIC ATRIAL PACEMAKER ST DEVIATION AND MODERATE T-WAVE ABNORMALITY, CONSIDER ANTEROLATERAL ISCHEMIA [-0.1+ mV T-WAVE IN V3-V6] ABNORMAL ECG UNCONFIRMED REPORT Electronically signed by : Allen Love MD 11/30/2024 08:44:11
--- NOTE | 2024-11-28 23:44 | PC.NURSE ---
Provider was called before tikosyn administration to give him premedicated EKG results and provider Wolf gave the okay to give med. Will obtain EKG 2 hours post sports medicine trainer per communication order from dr baird.
[2024-11-29] VITALS (18 sets, daily range): BP systolic 108–140; BP diastolic 41–76; PULSE 69–78; RESP 10–30; TEMP 36.6–37; O2SAT 91–98; BMI 24.3
--- NOTE | 2024-11-29 01:57 | ECG_ITS ---
APPROVED REPORT Exam: Resting ECG HR:69 bpm ECG Measurements Heart Rate 69 AXES [place] 224 P 250 QRSd 89 QRS 64 QT 441 T 66 QTc 461 Conclusion ELECTRONIC ATRIAL PACEMAKER ST DEVIATION AND MODERATE T-WAVE ABNORMALITY, CONSIDER ANTEROLATERAL ISCHEMIA [-0.1+ mV T-WAVE IN V3-V6] ABNORMAL ECG UNCONFIRMED REPORT Electronically signed by : Allen Love MD 11/30/2024 08:44:07
[2024-11-29 06:05] LABS: Hematocrit 37.1 % (37.0-47.0); Immature Granulocytes % 0.2 %; Mean Corpuscular HGB Conc 32.1 g/dL (31.8-35.4); Mean Corpuscular Hemoglobin 29.8 pg (27.0-31.2); Mean Corpuscular Volume 93.0 fl (81-99); Nucleated Red Blood Cells % 0 %; Platelet Count 380 K/mm3 (142-424); Red Blood Count 3.99 M/mm3 (4.20-5.40); Red Cell Distribution Width-SD 47.1 fL; White Blood Count 8.3 K/mm3 (4.8-10.8)
[2024-11-29 06:07] LABS: Hemoglobin 12.2 g/dL (12.2-16.2)
[2024-11-29 06:16] LABS: Albumin Level 3.7 g/dl (3.5-5.0); Chloride 106 mmol/L (98-107); Potassium 3.8 mmoL/L (3.5-5.1); Sodium 140 mmol/L (136-145)
[2024-11-29 06:19] LABS: Alanine Aminotransferase 14 U/L (12-78); Albumin/Globulin Ratio 1.5 (1.1-1.8); Alkaline Phosphatase 55 U/L (38-126); Anion Gap 9.8 mEq/L (5-15); Aspartate Amino Transferase 35 U/L (14-36); Bilirubin,Total 1.2 mg/dl (0.2-1.3); Blood Urea Nitrogen 19 mg/dl (7-17); Calcium 8.4 mg/dl (8.4-10.2); Carbon Dioxide 28 mmol/L (22.0-30.0); Creatinine Clearance Estimated 47 mL/min (50-200); Creatinine,Serum 0.80 mg/dl (0.52-1.04); Estimated Glomerular Filt Rate 69 ml/min (>60); GFR (African American) 83 ML/MIN (>60); Globulin 2.5 g/dL (1.3-3.2); Glucose 114 mg/dl (74-100); Magnesium 2.2 mg/dl (1.6-2.3); Total Protein,Serum 6.2 g/dl (6.3-8.2)
--- NOTE | 2024-11-29 07:39 | ECG_ITS ---
APPROVED REPORT Exam: Resting ECG HR:70 bpm ECG Measurements Heart Rate 70 AXES [place] 211 P 86 QRSd 88 QRS 48 QT 398 T 54 QTc 419 Conclusion ELECTRONIC ATRIAL PACEMAKER NONSPECIFIC ST & T-WAVE ABNORMALITY ABNORMAL RHYTHM ECG UNCONFIRMED REPORT Electronically signed by : Allen Love MD 11/30/2024 08:44:04
[2024-11-29] MEDS: MORPHINE 2MG/ML SYRINGE 2 MG IV ×2 (07:46→09:38)
--- OUTSIDE RECORDS SUMMARY | 2024-11-29 07:56 | XMS_ITS | Clinical Summary ---
Author Organization [facility] Address [address] [place] [id number] Phone Care Team Providers Care Senior Biostatistician Name Role Phone Tim Bansal MD Unavailable [ ] Conditions or Problems Problem Name Problem Code Onset Date Status Entry Date Provider Comment Standard Description Annotate Benign Essential Hypertension 41184377 (SNOMED CT) Active Daxa Cee Benign hypertension C. Difficile colitis 915747635 (SNOMED CT) Active Daxa eCe Clostridium difficile colitis Medications Medication Instructions Start Date Stop Date Generic Name NDC Provider CVS OMEPRAZOLE 20 MG TBEC QD OMEPRAZOLE [id number] Sharmila Marin ATENOLOL 50 MG TABS QD ATENOLOL [id number] Sharmila Marin VANCOCIN HCL 125 MG ORAL CAPSULE QID VANCOMYCIN HCL [id number] Sharmila Marin Medications Administered No information available. 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 Procedures No information available. Vital Signs No information available. Immunizations No information available. Advance Directives No information available.
--- OUTSIDE RECORDS SUMMARY | 2024-11-29 07:57 | XMS_ITS | Clinical Summary ---
Author Organization [facility] Address [address] [place] [address] Care Team Providers Care Medical Unit Secretary Name Role Phone Allen Love MD Primary Care Provider [phone] Allergies Active Allergy Reactions Criticality Noted Date [...] or (1 - 1-dose 75+ series) 2017 [id number] Vaccine (3 - 2023- season) 2023 06/13/2020, [...] to complete this topic Insurance [place] [id number] [place] [address] [employer] Care Teams Medical Unit Secretary Relationship Specialty Start Date End Date Allen Love MD [address] [place] [address] PCP - General 08/17/20
--- NOTE | 2024-11-29 08:41 | PC.NURSE ---
All patient care and documentation by Melva TADEO/Shipping And Receiving Material Handler was completed under my direct supervision. Mone Dallas RN
[2024-11-29] MEDS: TIKOSYN 250 MCG 1 EACH PO ×2 (09:12→20:17)
[2024-11-29 09:26] LABS: Free T4 (Free Thyroxine) 1.78 ng/dl (0.78-2.19)
[2024-11-29 09:41] LABS: Thyroid Stimulating Hormone 1.51 uIU/mL (0.465-4.68)
--- NOTE | 2024-11-29 11:12 | P.PN_ITS ---
Subjective Subjective Date: 11/29/24 Time: 08:00 Principal diagnosis: A-fib RVR Interval history: Patient converted to normal sinus rhythm throughout the evening. She remains in normal sinus rhythm this morning. Morning labs reviewed and stable. Patient is complaining of left sided chest wall pain from recent pacemaker placement. Exam Data for Last 24 hours Vital signs and Labs for Last 24 Hours: Temp Pulse Resp BP Pulse Ox O2 Del Method 98.2 F 70 12 124/54 L 96 Room Air 11/29/24 08:00 11/29/24 08:00 11/29/24 08:00 11/29/24 08:00 11/29/24 08:00 11/29/24 10:59 Laboratory Results - last 24 hr 11/28/24 11:20: WBC 9.7, RBC 4.70, Hgb 14.4, Hct 43.1, MCV 91.7, MCH 30.6, MCHC 33.4, RDW 13.8, Plt Count 502 H, MPV 10.7 H, Neut % (Auto) 72.4, Lymph % (Auto) 17.1, [place] % (Auto) 7.2, Eos % (Auto) 2.3, Baso % (Auto) 0.8, Neut # (Auto) 7.1, Lymph # (Auto) 1.7, [place] # (Auto) 0.7, Eos # (Auto) 0.2, Baso # (Auto) 0.1, Sodium 141, Potassium 4.0, Chloride 104, Carbon Dioxide 28, Anion Gap 13.0, BUN 19 H, Creatinine 0.80, Estimated Creat Clear 47, Estimated GFR 69, Est GFR ( Amer) 83, Glucose 132 H, Calcium 9.4, Magnesium 1.7, Total Bilirubin 1.3, AST 41 H, ALT 19, Alkaline Phosphatase 58, Troponin I 0.03, NT-Pro-B Natriuret Pep 2430 H, Total Protein 7.4 D, Albumin 4.5, Globulin 2.9, Albumi n/Globulin Ratio 1.6 11/28/24 13:46: Urine Color Yellow, Urine Appearance Clear, Urine pH 7.0, Ur Specific [place] 1.010, Urine Protein Negative, Urine Glucose (UA) Negative, Ur ine Ketones Trace, Urine Blood Trace-i, Urine Nitrate Negative, Urine Bilirubin Negative, Urine Urobilinogen 1.0, Ur Leukocyte Esterase 1+ A, Urine RBC None, Urine WBC 5-10, Ur Squamous Epith Cells Occasional, Urine Bacteria Trace 11/28/24 14:41: Troponin I 0.03 11/29/24 05:36: WBC 8.3, RBC 3.99 L, Hgb 12.2 D, Hct 37.1, MCV 93.0, MCH 29.8, MCHC 32.1, RDW 13.9, Plt Count 380, MPV 10.4, Neut % (Auto) 65.3, Lymph % (Auto) 23.1, [place] % (Auto) 6.9, Eos % (Auto) 4.0, Baso % (Auto) 0.5, Neut # (Auto) 5.4, Lymph # (Auto) 1.9, [place] # (Auto) 0.6, Eos # (Auto) 0.3, Baso # (Auto) 0.0, Sodium 140, Potassium 3.8, Chloride 106, Carbon Dioxide 28, Anion Gap 9.8, BUN 19 H, Creatinine 0.80, Estimated Creat Clear 47, Estimated GFR 69, Est GFR ( Amer) 83, Glucose 114 H, Calcium 8.4, Magnesium 2.2 D, Total Bilirubin 1.2, AST 35, ALT 14 D, Alkaline Phosphatase 55, Total Protein 6.2 L, Albumin 3.7 D, Globulin 2.5, Albumin/Globulin Ratio 1.5, TSH 1.51, Free T4 1.78 I & O for Last 24 hours: Intake & Output 11/26/24 11/27/24 11/28/24 11/29/24 23:59 23:59 23:59 23:59 Intake Total 170 / 290 120 / 120 Output Total 0 / 0 0 / 0 Balance 170 / 290 120 / 120 Weight 150 lb 150 lb 9.211 oz Constitutional Constitutional: no acute distress Routine Chest/Breast/Axilla Exam Comments: Hematoma noted to left pacemaker pocket. *Routine Respiratory Exam Respiratory: Present CTA bilaterally and symmetric chest movement *Routine Cardiovascular Exam Cardiovascular: Present RRR, Normal S1 and Normal S2 *Routine Abdominal Exam Abdominal: Present soft and normoactive bowel sounds; Absent tenderness *Routine Extremities Exam Extremities: Present full ROM and normal capillary refill; Absent edema *Routine Skin Exam Skin: Present intact, dry and warm Detailed Neck Exam: Thyroids Thyroid: Absent bruit Progress Note: A&P Assessment and plan (1) Atrial fibrillation with RVR: Status: Acute Assessment and Plan Assessment and Plan for All Diagnoses:: Afib rvr Hx of tachybrady syndrome s/p dual chamber pacemaker Patient converted to normal sinus rhythm Continue Tikosyn 250 mcg twice daily Daily EKGs monitoring QTc Anticipate discharge home on Continue to hold Xarelto and anticoagulation due to pacemaker site hematoma History of coronary artery disease Left heart catheterization April 2019 shows mild nonflow limiting mid LAD disease with normal EF and normal LVEDP Troponin negative Pacemaker site hematoma Continue to hold Xarelto and anticoagulation due to pacemaker site hematoma Will defer pain management to primary service CV summary : Continue Tikosyn. Patient needs daily EKGs and anticipate discharge home on .
--- NOTE | 2024-11-29 11:38 | ECG_ITS ---
APPROVED REPORT Exam: Resting ECG HR:70 bpm ECG Measurements Heart Rate 70 AXES OR 219 P 106 QRSd 85 QRS 104 QT 445 T 138 QTc 465 Conclusion ELECTRONIC ATRIAL PACEMAKER ABNORMAL ECG UNCONFIRMED REPORT Electronically signed by : Allen Love MD 11/30/2024 08:43:48
--- NOTE | 2024-11-29 13:21 | PC.NURSE ---
After Dr. Douglas rounded on pt MD indicated pt was needing pain medications. Upon assessing pt the pt stated her pain was a 1 out of 10 and did not want/need pain medication at this time. Will continue to assess.
[2024-11-29] MEDS: ATORVASTATIN 40MG TABLET 40 MG PO (20:17)
[2024-11-29] MEDS: LORATADINE 10MG TABLET 5 MG PO (20:17)
[2024-11-29] MEDS: PANTOPRAZOLE 40MG TABLET 40 MG PO (20:17)
--- NOTE | 2024-11-29 22:23 | ECG_ITS ---
APPROVED REPORT Exam: Resting ECG HR:69 bpm ECG Measurements Heart Rate 69 AXES AL 218 P -69 QRSd 90 QRS 77 QT 410 T 51 QTc 430 Conclusion ELECTRONIC ATRIAL PACEMAKER NONSPECIFIC ST & T-WAVE ABNORMALITY ABNORMAL RHYTHM ECG UNCONFIRMED REPORT Electronically signed by : Allen Love MD 11/30/2024 08:43:13
--- NOTE | 2024-11-29 22:54 | P.PN_ITS ---
Subjective *Date: 12/03/24 *Time: 16:10 Interval history: Patient doing okay, feeling a little bit weaker today. No chest pain, shortness of breath. No acute events overnight. Exam Data for Last 24 hours Vital signs and Labs for Last 24 Hours: Temp Pulse Resp BP Pulse Ox O2 Del Method 98.5 F 71 15 140/53 L 96 Room Air 11/29/24 20:00 11/29/24 22:00 11/29/24 22:00 11/29/24 22:00 11/29/24 22:00 11/29/24 22:00 Laboratory Results - last 24 hr 11/29/24 05:36: WBC 8.3, RBC 3.99 L, Hgb 12.2 D, Hct 37.1, MCV 93.0, MCH 29.8, MCHC 32.1, RDW 13.9, Plt Count 380, MPV 10.4, Neut % (Auto) 65.3, Lymph % (Auto) 23.1, [place] % (Auto) 6.9, Eos % (Auto) 4.0, Baso % (Auto) 0.5, Neut # (Auto) 5.4, Lymph # (Auto) 1.9, [place] # (Auto) 0.6, Eos # (Auto) 0.3, Baso # (Auto) 0.0, Sodium 140, Potassium 3.8, Chloride 106, Carbon Dioxide 28, Anion Gap 9.8, BUN 19 H, Creatinine 0.80, Estimated Creat Clear 47, Estimated GFR 69, Est GFR ( Amer) 83, Glucose 114 H, Calcium 8.4, Magnesium 2.2 D, Total Bilirubin 1.2, AST 35, ALT 14 D, Alkaline Phosphatase 55, Total Protein 6.2 L, Albumin 3.7 D, Globulin 2.5, Albumin/Globulin Ratio 1.5, TSH 1.51, Free T4 1.78 Temp Pulse Resp BP Pulse Ox O2 Del Method 98.0 F 81 18 113/62 95 Room Air 11/28/24 14:05 11/28/24 14:05 11/28/24 14:05 11/28/24 14:05 11/28/24 12:00 11/28/24 14:05 Laboratory Results - last 24 hr 11/28/24 11:20: WBC 9.7, RBC 4.70, Hgb 14.4, Hct 43.1, MCV 91.7, MCH 30.6, MCHC 33.4, RDW 13.8, Plt Count 502 H, MPV 10.7 H, Neut % (Auto) 72.4, Lymph % (Auto) 17.1, [place] % (Auto) 7.2, Eos % (Auto) 2.3, Baso % (Auto) 0.8, Neut # (Auto) 7.1, Lymph # (Auto) 1.7, [place] # (Auto) 0.7, Eos # (Auto) 0.2, Baso # (Auto) 0.1, Sodium 141, Potassium 4.0, Chloride 104, Carbon Dioxide 28, Anion Gap 13.0, BUN 19 H, Creatinine 0.80, Estimated Creat Clear 47, Estimated GFR 69, Est GFR ( Amer) 83, Glucose 132 H, Calcium 9.4, Magnesium 1.7, Total Bilirubin 1.3, AST 41 H, ALT 19, Alkaline Phosphatase 58, Troponin I 0.03, NT-Pro-B Natriuret Pep 2430 H, Total Protein 7.4 D, Albumin 4.5, Globulin 2.9, Albumin/Globulin Ratio 1.6 I & O for Last 24 hours: Intake & Output 11/26/24 11/27/24 11/28/24 11/29/24 23:59 23:59 23:59 23:59 Intake Total 170 / 290 435 / 435 Output Total 0 / 0 400 / 400 Balance 170 / 290 35 / 35 Weight 68.039 kg 68.3 kg Intake & Output 11/25/24 11/26/24 11/27/24 11/28/24 23:59 23:59 23:59 23:59 Weight 150 lb Constitutional Constitutional: no acute distress Routine Chest/Breast/Axilla Exam Comments: Hematoma noted to pacemaker pocket and down left arm. No bleeding, warmth, redness present. *Routine Respiratory Exam Respiratory: Present CTA bilaterally and symmetric chest movement *Routine Cardiovascular Exam Cardiovascular: Present Normal S1, Normal S2, irregular rhythm and irregularly irregular *Routine Abdominal Exam Abdominal: Present soft and normoactive bowel sounds; Absent tenderness *Routine Extremities Exam Extremities: Present full ROM and normal capillary refill; Absent edema *Routine Skin Exam Skin: Present intact, dry and warm Detailed Neck Exam: Thyroids Thyroid: Absent bruit Assessment and Plan *Assessment and plan (1) Atrial fibrillation with RVR: Status: Acute Category: Medical Code(s): I48.91 - Unspecified atrial fibrillation Plan Hazel Manning is a 84-year-old female with a medical history significant for refractory A-fib presented with 1 day history of dizziness, palpitations. She states she began experiencing the symptoms last night and thought it would get better, knew it was her A-fib. This morning, patient felt weak, dizzy, with palpitations so her brought her to the ED. Initial heart rate was in the 140s, A-fib RVR. Other vitals were stable. Unfortunately, patient's A-fib has been refractory to multiple AV araceli blockers and antiarrhythmics. Most recently discharged on diltiazem 180 mg ER, has been adherent to it. Case discussed extensively with Dr. Douglas by ED and me, ultimately recommended starting Tikosyn 250 mcg twice daily. Therefore, I decided to admit patient for close monitoring in the setting of Tikosyn loading. #Paroxysmal A-fib ? Presented with dizziness, shortness of breath, fatigue. Found to be in A-fib RVR in 130s. Currently in NSR. ? Unfortunately, patient's A-fib has been refractory to multiple AV araceli blocke rs and antiarrhythmics. Most recently discharged on diltiazem 180 mg ER, has been adherent to it but still went into AVR. ? Discussed with Dr. Douglas, continue Tikosyn 250 mcg twice daily. Monitor QTc, daily EKGs. Cardiology wants to monitor on . ? Hold home diltiazem, AV araceli blockers at this time. ? Continuous cardiac telemetry. ? Goal magnesium greater than 2, potassium greater than 4. ? Hold anticoagulation for now due to pacemaker hematoma. Hemoglobin 12.2. Peripheral pulses intact. ? Pacemaker hematoma more firm today, will likely tamponade on its own. Peripheral pulses intact. #GERD ? Continue home PPI. Full code DVT prophylaxis: SCDs
[2024-11-30] VITALS (21 sets, daily range): BP systolic 104–141; BP diastolic 47–72; PULSE 65–150; RESP 12–18; TEMP 36.4–36.9; O2SAT 92–98; BMI 24.3
--- NOTE | 2024-11-30 03:28 | PC.NURSE ---
Pt went into afib rvr, hr between 110s-130s. ekg obtianed. Provider [place] notified. Provider stated no new orders at this time and to hold off until next dose of tikosyn is due .
--- NOTE | 2024-11-30 04:04 | PC.NURSE ---
Provider notified again, pts heart rate now sustaining 130s-140s afib rvr. See MAR for new orders
[2024-11-30] MEDS: DIGOXIN 0.25MG/ML 2ML AMPUL 250 MCG IV (04:18)
[2024-11-30 05:53] LABS: Hematocrit 40.0 % (37.0-47.0); Hemoglobin 12.8 g/dL (12.2-16.2); Immature Granulocytes % 0.2 %; Mean Corpuscular HGB Conc 32.0 g/dL (31.8-35.4); Mean Corpuscular Hemoglobin 29.5 pg (27.0-31.2); Mean Corpuscular Volume 92.2 fl (81-99); Nucleated Red Blood Cells % 0 %; Platelet Count 362 K/mm3 (142-424); Red Blood Count 4.34 M/mm3 (4.20-5.40); Red Cell Distribution Width-SD 48.1 fL; White Blood Count 8.2 K/mm3 (4.8-10.8)
[2024-11-30 05:58] LABS: Albumin Level 3.8 g/dl (3.5-5.0); Chloride 109 mmol/L (98-107); Potassium 3.7 mmoL/L (3.5-5.1); Sodium 140 mmol/L (136-145)
[2024-11-30 06:00] LABS: Alanine Aminotransferase 14 U/L (12-78); Aspartate Amino Transferase 41 U/L (14-36); Blood Urea Nitrogen 16 mg/dl (7-17); Creatinine Clearance Estimated 47 mL/min (50-200); Creatinine,Serum 0.80 mg/dl (0.52-1.04); Estimated Glomerular Filt Rate 69 ml/min (>60); GFR (African American) 83 ML/MIN (>60)
[2024-11-30 06:01] LABS: Albumin/Globulin Ratio 1.5 (1.1-1.8); Alkaline Phosphatase 59 U/L (38-126); Anion Gap 8.7 mEq/L (5-15); Bilirubin,Total 1.6 mg/dl (0.2-1.3); Calcium 8.3 mg/dl (8.4-10.2); Carbon Dioxide 26 mmol/L (22.0-30.0); Globulin 2.5 g/dL (1.3-3.2); Glucose 116 mg/dl (74-100); Magnesium 1.9 mg/dl (1.6-2.3); Total Protein,Serum 6.3 g/dl (6.3-8.2)
--- NOTE | 2024-11-30 07:50 | CA_ITS ---
APPROVED REPORT EXAM: Limited 2D Echocardiogram Dental Office Coordinator: Deana Garner, RCS, RVS Ht: 5 ft 6 in Wt: 151lbs BSA: 1.77 BP: 116/56 mmHg Indications: S/p Pacer with extensive bruising/hematoma of left chest. Pericardial effusion Echo Enhancing Agent Comments: Limited windows due to patient sensitivity M-Mode Dimensions RVDd 1.87 cm (0.9-2.6) LVDd 4.20 cm (3.5-5.7) LVDs 2.19 cm (3.5-5.7) IVSd 1.11 cm (0.6-1.1) PWd 1.04 cm (0.6-1.1) EF (Teich) 79.60% FS 47.90% EDV (Teich) 78.60 mL ESV (Teich) 16.00 mL Other Information Study Quality: Fair Conclusion This is a limited TTE to evaluate for the presence of pericardial effusion. Limited windows are obtained. There is a moderate-sized, circumferential pericardial effusion present. The effusion is at least partially loculated and likely partially hemorrhagic in nature. The largest pocket measures 1.2 cm in diastole. There is a slight invagination of the RA and RV during systole and diastole, respectively. But there is no evidence of full chamber collapse. The IVC is normal in size and collapsibility. Serial limited TTE follow-ups are suggested. Clinical correlation is recommended. Electronically signed by : Carol Laguerre MD 11/30/2024 11:50:54
[2024-11-30] MEDS: TIKOSYN 250 MCG 1 EACH PO ×2 (08:15→20:00)
[2024-11-30] MEDS: MAGNESIUM SULFATE IN WATER 2 GM/50 ML PIGGYBACK IV (08:31)
[2024-11-30] MEDS: POTASSIUM CHLORIDE 20MEQ TAB 40 MEQ PO (08:31)
--- NOTE | 2024-11-30 08:59 | PC.NURSE ---
pt up to the chair at this time. call light w/i reach.
--- NOTE | 2024-11-30 09:18 | PC.NURSE ---
Cardiology rounded on patientMyesha APRN. Will consult with stripper black and white plan of care.
--- NOTE | 2024-11-30 10:00 | PC.NURSE ---
family at bedside visiting with patient.
--- NOTE | 2024-11-30 10:17 | P.PN_ITS ---
Subjective Subjective Date: 11/30/24 Time: 08:00 Principal diagnosis: A-fib RVR Interval history: Patient went back into afib/flutter last night, was given one dose of digoxin. This morning remains afib 117. Complaining of nausea Exam Data for Last 24 hours Vital signs and Labs for Last 24 Hours: Temp Pulse Resp BP Pulse Ox O2 Del Method 98.4 F 132 H 18 110/71 96 Room Air 11/30/24 08:02 11/30/24 10:00 11/30/24 10:00 11/30/24 10:00 11/30/24 10:00 11/30/24 10:00 Laboratory Results - last 24 hr 11/30/24 04:57: WBC 8.2, RBC 4.34, Hgb 12.8, Hct 40.0, MCV 92.2, MCH 29.5, MCHC 32.0, RDW 14.1, Plt Count 362, MPV 10.5 H, Neut % (Auto) 68.5, Lymph % (Auto) 20.3, [place] % (Auto) 7.2, Eos % (Auto) 3.3, Baso % (Auto) 0.5, Neut # (Auto) 5.6, Lymph # (Auto) 1.7, [place] # (Auto) 0.6, Eos # (Auto) 0.3, Baso # (Auto) 0.0, Sodium 140, Potassium 3.7, Chloride 109 H, Carbon Dioxide 26, Anion Gap 8.7, BUN 16, Creatinine 0.80, Estimated Creat Clear 47, Estimated GFR 69, Est GFR ( Amer) 83, Glucose 116 H, Calcium 8.3 L, Magnesium 1.9 D, Total Bilirubin 1.6 H, AST 41 H, ALT 14, Alkaline Phosphatase 59, Total Protein 6.3, Albumin 3.8, Globulin 2.5, Albumin/Globulin Ratio 1.5 I & O for Last 24 hours: Intake & Output 11/27/24 11/28/24 11/29/24 11/30/24 23:59 23:59 23:59 23:59 Intake Total 170 / 290 435 / 435 150 / 150 Output Total 0 / 0 400 / 400 1100 / 1100 Balance 170 / 290 35 / 35 -950 / -950 Weight 150 lb 150 lb 9.211 oz 151 lb 3.794 oz Constitutional Constitutional: no acute distress *Routine Respiratory Exam Respiratory: Present CTA bilaterally and symmetric chest movement *Routine Cardiovascular Exam Cardiovascular: Present RRR, Normal S1 and Normal S2 *Routine Abdominal Exam Abdominal: Present soft and normoactive bowel sounds; Absent tenderness *Routine Extremities Exam Extremities: Present full ROM and normal capillary refill; Absent edema *Routine Skin Exam Skin: Present intact, dry and warm Detailed Neck Exam: Thyroids Thyroid: Absent bruit Progress Note: A&P Assessment and plan (1) Atrial fibrillation with RVR: Status: Acute Assessment and Plan Assessment and Plan for All Diagnoses:: Afib rvr Hx of tachybrady syndrome s/p dual chamber pacemaker Patient converted to normal sinus rhythm but is having breakthrough afib. I discussed this with Dr. Medina who said it is normal for patient to continue to have breakthrough episodes of A-fib when for starting Tikosyn. He would like to treat the breakthrough episodes of A-fib with IV metoprolol as needed for heart rate greater than 110. If patient remains in A-fib we will plan for HUMBERTO cardioversion on outpatient basis. Continue Tikosyn 250 mcg twice daily Daily EKGs monitoring QTc Anticipate discharge home on Continue to hold Xarelto and anticoagulation due to pacemaker site hematoma History of coronary artery disease Left heart catheterization April 2019 shows mild nonflow limiting mid LAD disease with normal EF and normal LVEDP Troponin negative Patient does need an outpatient ischemic evaluation Pacemaker site hematoma Continue to hold Xarelto and anticoagulation due to pacemaker site hematoma Will defer pain management to primary service CV summary : Continue Tikosyn. Per Dr. Medina-no more doses of digoxin. Can give IV metoprolol for breakthrough episodes of A-fib/rate control. Patient needs daily EKGs and anticipate discharge home on .
--- NOTE | 2024-11-30 10:35 | ECG_ITS ---
APPROVED REPORT Exam: Resting ECG HR:132 bpm ECG Measurements Heart Rate 132 AXES QRSd 83 QRS 79 QT 287 T 0 QTc 365 Conclusion ATRIAL FIBRILLATION WITH RAPID VENTRICULAR RESPONSE NONSPECIFIC ST & T-WAVE ABNORMALITY ABNORMAL RHYTHM ECG UNCONFIRMED REPORT Electronically signed by : Allen Love MD 12/01/2024 08:37:50
[2024-11-30] MEDS: METOPROLOL TARTRATE 5MG/5ML VIAL 2.5 MG IV ×3 (10:59→16:59)
[2024-11-30 13:47] LABS: C-Reactive Protein 4.7 mg/L (0-4)
--- NOTE | 2024-11-30 17:28 | PC.WOUNDNOTE ---
Patient alert and oriented x 4. Electrolytes replaced with 40meq of potassium given oral, and 2 grams of magnesium given IV. Orders are keep potassium above 4 and magnesium above 2. Lung sounds clear, 20G in the R AC saline locked. IV metoprolol ordered PRN every 6 hours for heart rate above 110. Was given at 1100 and 1700. Sat up in chair this morning, had a bed bath this afternoon. Poor intake of meals today, has felt nauseated most of the day. Did not want any meds for the nausea. Standby assistance to the recliner and bathroom. Prefers to go to the bathroom for toileting. Cardiology wanted no more digoxin given. Daily EKG ordered after last EKG was done at 1030 this shift, 2 hours after PO tikosyn was given. Pain today has been minimal, pain meds ordered for PRN, did not want any meds today. Dressing removed today by Myesha Lyle APRN, M. Shotwell MD, cardiology did not want new dressing put on. Family has been at bedside most of the day, call light within reach.
--- NOTE | 2024-11-30 17:58 | PC.NURSE ---
Patient appeared to be in NSR, obtained EKG to confirm. Dr. Abrams notified.
[2024-11-30] MEDS: ATORVASTATIN 40MG TABLET 40 MG PO (20:00)
[2024-11-30] MEDS: LORATADINE 10MG TABLET 5 MG PO (20:00)
[2024-11-30] MEDS: PANTOPRAZOLE 40MG TABLET 40 MG PO (20:00)
--- NOTE | 2024-11-30 23:26 | EXP.PN ---
Subjective *Date: 12/03/24 *Time: 16:13 Interval history: Patient was in A-fib RVR this morning, felt quite weak. Improved in the afternoon after IV Lopressor 5 mg. Exam Data for Last 24 hours Vital signs and Labs for Last 24 Hours: Temp Pulse Resp BP Pulse Ox O2 Del Method 97.6 F 69 15 115/56 L 95 Room Air 11/30/24 16:00 11/30/24 22:00 11/30/24 22:00 11/30/24 22:00 11/30/24 22:00 11/30/24 23:00 Laboratory Results - last 24 hr 11/28/24 13:46: Urine Color Yellow, Urine Appearance Clear, Urine pH 7.0, Ur Specific [place] 1.010, Urine Protein Negative, Urine Glucose (UA) Negative, Urine Ketones Trace, Urine Blood Trace-i, Urine Nitrate Negative, Urine Bilirubin Negative, Urine Urobilinogen 1.0, Ur Leukocyte Esterase 1+ A, Urine RBC None, Urine WBC 5-10, Ur Squamous Epith Cells Occasional, Urine Bacteria Trace 11/30/24 04:57: WBC 8.2, RBC 4.34, Hgb 12.8, Hct 40.0, MCV 92.2, MCH 29.5, MCHC 32.0, RDW 14.1, Plt Count 362, MPV 10.5 H, Neut % (Auto) 68.5, Lymph % (Auto) 20.3, [place] % (Auto) 7.2, Eos % (Auto) 3.3, Baso % (Auto) 0.5, Neut # (Auto) 5.6, Lymph # (Auto) 1.7, [place] # (Auto) 0.6, Eos # (Auto) 0.3, Baso # (Auto) 0.0, Sodium 140, Potassium 3.7, Chloride 109 H, Carbon Dioxide 26, Anion Gap 8.7, BUN 16, Creatinine 0.80, Estimated Creat Clear 47, Estimated GFR 69, Est GFR ( Amer) 83, Glucose 116 H, Calcium 8.3 L, Magnesium 1.9 D, Total Bilirubin 1.6 H, AST 41 H, ALT 14, Alkaline Phosphatase 59, C-Reactive Protein 4.7 H, Total Protein 6.3, Albumin 3.8, Globulin 2.5, Albumin/Globulin Ratio 1.5 Temp Pulse Resp BP Pulse Ox O2 Del Method 98.0 F 81 18 113/62 95 Room Air 11/28/24 14:05 11/28/24 14:05 11/28/24 14:05 11/28/24 14:05 11/28/24 12:00 11/28/24 14:05 Laboratory Results - last 24 hr 11/28/24 11:20: WBC 9.7, RBC 4.70, Hgb 14.4, Hct 43.1, MCV 91.7, MCH 30.6, MCHC 33.4, RDW 13.8, Plt Count 502 H, MPV 10.7 H, Neut % (Auto) 72.4, Lymph % (Auto) 17.1, [place] % (Auto) 7.2, Eos % (Auto) 2.3, Baso % (Auto) 0.8, Neut # (Auto) 7.1, Lymph # (Auto) 1.7, [place] # (Auto) 0.7, Eos # (Auto) 0.2, Baso # (Auto) 0.1, Sodium 141, Potassium 4.0, Chloride 104, Carbon Dioxide 28, Anion Gap 13.0, BUN 19 H, Creatinine 0.80, Estimated Creat Clear 47, Estimated GFR 69, Est GFR ( Amer) 83, Glucose 132 H, Calcium 9.4, Magnesium 1.7, Total Bilirubin 1.3, AST 41 H, ALT 19, Alkaline Phosphatase 58, Troponin I 0.03, NT-Pro-B Natriuret Pep 2430 H, Total Protein 7.4 D, Albumin 4.5, Globulin 2.9, Albumin/Globulin Ratio 1.6 I & O for Last 24 hours: Intake & Output 11/27/24 11/28/24 11/29/24 11/30/24 23:59 23:59 23:59 23:59 Intake Total 170 / 290 435 / 435 150 / 150 Output Total 0 / 0 400 / 400 1700 / 1700 Balance 170 / 290 35 / 35 -1550 / -1550 Weight 68.039 kg 68.3 kg 68.6 kg Intake & Output 11/25/24 11/26/24 11/27/24 11/28/24 23:59 23:59 23:59 23:59 Weight 150 lb Microbiology Reports for the Last 24 Hours: Microbiology 11/28/24 13:46 Urine,Clean Catch Urine Culture - Preliminary Gram Negative Rods Constitutional Constitutional: no acute distress Routine Chest/Breast/Axilla Exam Comments: Hematoma noted to pacemaker pocket and down left arm. No bleeding, warmth, redness present. *Routine Respiratory Exam Respiratory: Present CTA bilaterally and symmetric chest movement *Routine Cardiovascular Exam Cardiovascular: Present Normal S1, Normal S2, irregular rhythm and irregularly irregular *Routine Abdominal Exam Abdominal: Present soft and normoactive bowel sounds; Absent tenderness *Routine Extremities Exam Extremities: Present full ROM and normal capillary refill; Absent edema *Routine Skin Exam Skin: Present intact, dry and warm Detailed Neck Exam: Thyroids Thyroid: Absent bruit Assessment and Plan *Assessment and plan (1) Atrial fibrillation with RVR: Status: Acute Category: Medical Code(s): I48.91 - Unspecified atrial fibrillation Plan Hazel Manning is a 84-year-old female with a medical history significant for refractory A-fib presented with 1 day history of dizziness, palpitations. She states she began experiencing the symptoms last night and thought it would get better, knew it was her A-fib. This morning, patient felt weak, dizzy, with palpitations so her brought her to the ED. Initial heart rate was in the 140s, A-fib RVR. Other vitals were stable. Unfortunately, patient's A-fib has been refractory to multiple AV araceli blockers and antiarrhythmics. Most recently discharged on diltiazem 180 mg ER, has been adherent to it. Case discussed extensively with Dr. Douglas by ED and me, ultimately recommended starting Tikosyn 250 mcg twice daily. Therefore, I decided to admit patient for close monitoring in the setting of Tikosyn loading. #Paroxysmal A-fib ? Presented with dizziness, shortness of breath, fatigue. Found to be in A-fib RVR in 130s. Currently in NSR. ? Unfortunately, patient's A-fib has been refractory to multiple AV araceli blockers and antiarrhythmics. Most recently discharged on diltiazem 180 mg ER, has been adherent to it but still went into AVR. ? Discussed with cardiology, continue Tikosyn 250 mcg twice daily. Monitor QTc 430, daily EKGs. Cardiology wants to monitor on . ? Patient wanted A-fib RVR last night, cardiology started IV Lopressor 5 mg as needed. Converted to sinus rhythm this afternoon. Heart rate currently 69. ? Hold home diltiazem, AV araceli blockers at this time. ? Continuous cardiac telemetry. ? Goal magnesium greater than 2, potassium greater than 4. ? Hold anticoagulation for now due to pacemaker hematoma. Hemoglobin 12.8. ? Pacemaker hematoma stable today, no signs of expansion. Likely tamponaded. Peripheral pulses intact. #Pericardial effusion ? ECHO 11/30/2024 shows slight increase in pericardial effusion from ECHO from a few weeks ago, today showing moderate circumferential pericardial effusion. No signs of cardiac tamponade. #GERD ? Continue home PPI. Full code DVT prophylaxis: SCDs
[2024-12-01] VITALS (13 sets, daily range): BP systolic 99–125; BP diastolic 47–58; PULSE 70–95; RESP 12–19; TEMP 36.6–36.8; O2SAT 94–98; BMI 24.3
[2024-12-01 05:40] LABS: Hematocrit 38.7 % (37.0-47.0); Hemoglobin 12.7 g/dL (12.2-16.2); Immature Granulocytes % 0.3 %; Mean Corpuscular HGB Conc 32.8 g/dL (31.8-35.4); Mean Corpuscular Hemoglobin 30.5 pg (27.0-31.2); Mean Corpuscular Volume 93.0 fl (81-99); Nucleated Red Blood Cells % 0 %; Platelet Count 316 K/mm3 (142-424); Red Blood Count 4.16 M/mm3 (4.20-5.40); Red Cell Distribution Width-SD 47.6 fL; White Blood Count 9.4 K/mm3 (4.8-10.8)
[2024-12-01 05:53] LABS: Albumin Level 3.8 g/dl (3.5-5.0); Chloride 110 mmol/L (98-107)
[2024-12-01 05:54] LABS: Potassium 4.4 mmoL/L (3.5-5.1); Sodium 139 mmol/L (136-145)
[2024-12-01 05:56] LABS: Alanine Aminotransferase 13 U/L (12-78); Alkaline Phosphatase 57 U/L (38-126); Anion Gap 9.4 mEq/L (5-15); Aspartate Amino Transferase 34 U/L (14-36); Bilirubin,Total 1.6 mg/dl (0.2-1.3); Blood Urea Nitrogen 19 mg/dl (7-17); Carbon Dioxide 24 mmol/L (22.0-30.0); Creatinine Clearance Estimated 47 mL/min (50-200); Creatinine,Serum 0.80 mg/dl (0.52-1.04); Estimated Glomerular Filt Rate 69 ml/min (>60); GFR (African American) 83 ML/MIN (>60)
[2024-12-01 05:57] LABS: Albumin/Globulin Ratio 1.5 (1.1-1.8); Calcium 8.4 mg/dl (8.4-10.2); Globulin 2.5 g/dL (1.3-3.2); Glucose 103 mg/dl (74-100); Magnesium 2.2 mg/dl (1.6-2.3); Total Protein,Serum 6.3 g/dl (6.3-8.2)
[2024-12-01] MEDS: TIKOSYN 250 MCG 1 EACH PO (08:20)
--- NOTE | 2024-12-01 09:21 | EXP.CARD.PN ---
Subjective Subjective Date: 12/01/24 Time: 08:00 Principal diagnosis: A-fib RVR Interval history: Patient is doing well this morning. She denies chest pain or shortness of breath. Patient converted to normal sinus rhythm last night at 550 and is maintaining sinus rhythm today. Anticipate discharge home this afternoon. Patient can resume her home dose of Xarelto tomorrow. Morning labs reviewed and stable. Exam Data for Last 24 hours Vital signs and Labs for Last 24 Hours: Temp Pulse Resp BP Pulse Ox O2 Del Method 98.2 F 95 H 18 108/47 L 95 Room Air 12/01/24 04:00 12/01/24 09:00 12/01/24 09:00 12/01/24 09:00 12/01/24 09:00 12/01/24 09:00 Laboratory Results - last 24 hr 11/28/24 13:46: Urine Color Yellow, Urine Appearance Clear, Urine pH 7.0, Ur Specific [place] 1.010, Urine Protein Negative, Urine Glucose (UA) Negative, Urine Ketones Trace, Urine Blood Trace-i, Urine Nitrate Negative, Urine Bilirubin Negative, Urine Urobilinogen 1.0, Ur Leukocyte Esterase 1+ A, Urine RBC None, Urine WBC 5-10, Ur Squamous Epith Cells Occasional, Urine Bacteria Trace 11/30/24 04:57: C-Reactive Protein 4.7 H 12/01/24 05:22: WBC 9.4, RBC 4.16 L, Hgb 12.7, Hct 38.7, MCV 93.0, MCH 30.5, MCHC 32.8, RDW 14.0, Plt Count 316, MPV 10.7 H, Neut % (Auto) 68.3, Lymph % (Auto) 19.4, [place] % (Auto) 7.1, Eos % (Auto) 4.4, Baso % (Auto) 0.5, Neut # (Auto) 6.4, Lymph # (Auto) 1.8, [place] # (Auto) 0.7, Eos # (Auto) 0.4, Baso # (Auto) 0.1, Sodium 139, Potassium 4.4, Chloride 110 H, Carbon Dioxide 24, Anion Gap 9.4, BUN 19 H, Creatinine 0.80, Estimated Creat Clear 47, Estimated GFR 69, Est GFR ( Amer) 83, Glucose 103 H, Calcium 8.4, Magnesium 2.2 D, Total Bilirubin 1.6 H, AST 34, ALT 13, Alkaline Phosphatase 57, Total Protein 6.3, Albumin 3.8, Globulin 2.5, Albumin/Globulin Ratio 1.5 I & O for Last 24 hours: Intake & Output 11/28/24 11/29/24 11/30/24 12/01/24 23:59 23:59 23:59 23:59 Intake Total 170 / 290 435 / 435 150 / 150 440 / 440 Output Total 0 / 0 400 / 400 1700 / 1700 440 / 440 Balance 170 / 290 35 / 35 -1550 / -1550 0 / 0 Weight 150 lb 150 lb 9.211 oz 151 lb 3.794 oz 151 lb 3.794 oz Microbiology Reports for the Last 24 Hours: Microbiology 11/28/24 13:46 Urine,Clean Catch Urine Culture - Preliminary Gram Negative Rods Constitutional Constitutional: no acute distress Routine Chest/Breast/Axilla Exam Comments: Pacemaker site-swelling continues to improve. Bruising is decreasing. No redness drainage or warmth present. [place] are intact. *Routine Respiratory Exam Respiratory: Present CTA bilaterally and symmetric chest movement *Routine Cardiovascular Exam Cardiovascular: Present RRR, Normal S1 and Normal S2 *Routine Abdominal Exam Abdominal: Present soft and normoactive bowel sounds; Absent tenderness *Routine Extremities Exam Extremities: Present full ROM and normal capillary refill; Absent edema *Routine Skin Exam Skin: Present intact, dry and warm Detailed Neck Exam: Thyroids Thyroid: Absent bruit Progress Note: A&P Assessment and plan (1) Atrial fibrillation with RVR: Status: Acute Assessment and Plan Assessment and Plan for All Diagnoses:: Afib rvr Hx of tachybrady syndrome s/p dual chamber pacemaker Patient converted to normal sinus rhythm Continue Tikosyn 250 mcg twice daily QTc remains < 500 Discharge home this afternoon Patient can resume Xarelto on Thursday. History of coronary artery disease Left heart catheterization April 2019 shows mild nonflow limiting mid LAD disease with normal EF and normal LVEDP Troponin negative Patient does need an outpatient ischemic evaluation Pacemaker site hematoma Hematoma is improving-can resume Xarelto tomorrow CV summary 12/01/2024: Patient remains in normal sinus rhythm. Anticipate discharge home this afternoon. Patient needs a total of 6 doses of Tikosyn while inpatient prior to discharge. After the last dose patient needs to wait 2 hours and have a repeat EKG and then can be discharged home if EKG remains stable. Patient can resume her Xarelto tomorrow. Please have patient follow-up in cardiology clinic on Thursday for reevaluation. Consider outpatient ischemic evaluation-no testing since 2019. And Toprol 12.5 mg p.o. daily at discharge. Cardiac meds for discharge: Atorvastatin 40 mg p.o. daily Xarelto 20 mg p.o. daily Tikosyn 250 mcg p.o. twice daily Toprol 12.5 mg p.o. daily
--- NOTE | 2024-12-01 10:32 | ECG_ITS ---
APPROVED REPORT Exam: Resting ECG HR:69 bpm ECG Measurements Heart Rate 69 AXES TN 212 P 94 QRSd 88 QRS 47 QT 404 T 0 QTc 424 Conclusion [address]IC ATRIAL PACEMAKER ST DEVIATION AND MODERATE T-WAVE ABNORMALITY, CONSIDER ANTERIOR ISCHEMIA [-0.1+ mV T-WAVE IN V3/V4] ABNORMAL ECG UNCONFIRMED REPORT Electronically signed by : Allen Love MD 12/02/2024 11:57:57
--- NOTE | 2024-12-01 10:34 | PC.NURSE ---
RT at bedside for 2 post Tikosyn EKG.
--- NOTE | 2024-12-01 12:14 | PC.NURSE ---
Dr. Douglas to bedside to see patient.
--- NOTE | 2024-12-01 12:47 | EXP.DC.SUM ---
General Admission date:: 11/28/24 HPI HPI HPI: Hazel Manning is a 84-year-old female with a medical history significant for refractory A-fib presented with 1 day history of dizziness, palpitations. She states she began experiencing the symptoms last night and thought it would get better, knew it was her A-fib. This morning, patient felt weak, dizzy, with palpitations so her brought her to the ED. Initial heart rate was in the 140s, A-fib RVR. Other vitals were stable. Unfortunately, patient's A-fib has been refractory to multiple AV araceli blockers and antiarrhythmics. Most recently discharged on diltiazem 180 mg ER, has been adherent to it. Case discussed extensively with Dr. Douglas by ED and me, ultimately recommended starting Tikosyn 250 mcg twice daily. Therefore, I decided to admit patient for close monitoring in the setting of Tikosyn loading. Hospital Course Hospital Course Hospital Course: Hazel Manning is a 84-year-old female with a medical history significant for refractory A-fib presented with 1 day history of dizziness, palpitations. She states she began experiencing the symptoms last night and thought it would get better, knew it was her A-fib. This morning, patient felt weak, dizzy, with palpitations so her brought her to the ED. Initial heart rate was in the 140s, A-fib RVR. Other vitals were stable. Unfortunately, patient's A-fib has been refractory to multiple AV araceli blockers and antiarrhythmics. Most recently discharged on diltiazem 180 mg ER, has been adherent to it. Case discussed extensively with Dr. Douglas by ED and me, ultimately recommended starting Tikosyn 250 mcg twice daily. Therefore, I decided to admit patient for close monitoring in the setting of Tikosyn loading. #Paroxysmal A-fib ? Presented with dizziness, shortness of breath, fatigue. Found to be in A-fib RVR in 130s. Currently in NSR. ? Unfortunately, patient's A-fib has been refractory to multiple AV araceli blockers and antiarrhythmics. Most recently discharged on diltiazem 180 mg ER, has been adherent to it but still went into AVR. ? Patient was started on Tikosyn 250 mcg twice daily per Dr. Douglas. Patient tolerated this well, did have breakthrough A-fib RVR that resolved with IV Lopressor 5 mg, stable for 24 hours after. ? Patient was noted to have a hematoma around pacemaker site which stabilized during admission, likely tamponade on its own. Hemoglobin stable at 12.7. ? Discharged with Tikosyn 250 mcg twice daily, metoprolol succinate 12.5 mg daily, continue home Xarelto 20 mg starting tomorrow. ? Follow-up with cardiology within 1 week. #Pericardial effusion ? ECHO 11/30/2024 shows slight increase in pericardial effusion from ECHO from a few weeks ago, showing moderate circumferential pericardial effusion. No signs of cardiac tamponade. ? Will follow-up with cardiology for further management. Vital signs stable. #GERD ? Continue home PPI. Exam Data for Last 24 hours Vital signs and Labs for Last 24 Hours: Temp Pulse Resp BP Pulse Ox O2 Del Method 97.8 F 70 18 122/55 L 96 Room Air 12/01/24 08:00 12/01/24 12:00 12/01/24 12:00 12/01/24 12:00 12/01/24 12:00 12/01/24 12:00 Laboratory Results - last 24 hr 11/30/24 04:57: C-Reactive Protein 4.7 H 12/01/24 05:22: WBC 9.4, RBC 4.16 L, Hgb 12.7, Hct 38.7, MCV 93.0, MCH 30.5, MCHC 32.8, RDW 14.0, Plt Count 316, MPV 10.7 H, Neut % (Auto) 68.3, Lymph % (Auto) 19.4, [place] % (Auto) 7.1, Eos % (Auto) 4.4, Baso % (Auto) 0.5, Neut # (Auto) 6.4, Lymph # (Auto) 1.8, [place] # (Auto) 0.7, Eos # (Auto) 0.4, Baso # (Auto) 0.1, Sodium 139, Potassium 4.4, Chloride 110 H, Carbon Dioxide 24, Anion Gap 9.4, BUN 19 H, Creatinine 0.80, Estimated Creat Clear 47, Estimated GFR 69, Est GFR ( Amer) 83, Glucose 103 H, Calcium 8.4, Magnesium 2.2 D, Total Bilirubin 1.6 H, AST 34, ALT 13, Alkaline Phosphatase 57, Total Protein 6.3, Albumin 3.8, Globulin 2.5, Albumin/Globulin Ratio 1.5 I & O for Last 24 hours: Intake & Output 11/28/24 11/29/24 11/30/24 12/01/24 23:59 23:59 23:59 23:59 Intake Total 170 / 290 435 / 435 150 / 150 440 / 440 Output Total 0 / 0 400 / 400 1700 / 1700 440 / 440 Balance 170 / 290 35 / 35 -1550 / -1550 0 / 0 Weight 68.039 kg 68.3 kg 68.6 kg 68.6 kg Microbiology Reports for the Last 24 Hours: Microbiology 11/28/24 13:46 Urine,Clean Catch Urine Culture - Final Klebsiella pneumoniae Constitutional Constitutional: no acute distress Routine Chest/Breast/Axilla Exam Comments: Pacemaker site-swelling continues to improve. Bruising is decreasing. No redness drainage or warmth present. [place] are intact. *Routine Respiratory Exam Respiratory: Present CTA bilaterally and symmetric chest movement *Routine Cardiovascular Exam Cardiovascular: Present RRR, Normal S1 and Normal S2 *Routine Abdominal Exam Abdominal: Present soft and normoactive bowel sounds; Absent tenderness *Routine Extremities Exam Extremities: Present full ROM and normal capillary refill; Absent edema *Routine Skin Exam Skin: Present intact, dry and warm Detailed Neck Exam: Thyroids Thyroid: Absent bruit Results Data Completed and Pending Labs on day of discharge: Labs from last 24 hours 12/01/24 11/30/24 05:22 04:57 WBC 9.4 RBC 4.16 L Hgb 12.7 Hct 38.7 MCV 93.0 MCH 30.5 MCHC 32.8 RDW 14.0 Plt Count 316 MPV 10.7 H Neut % (Auto) 68.3 Lymph % (Auto) 19.4 [place] % (Auto) 7.1 Eos % (Auto) 4.4 Baso % (Auto) 0.5 Neut # (Auto) 6.4 Lymph # (Auto) 1.8 [place] # (Auto) 0.7 Eos # (Auto) 0.4 Baso # (Auto) 0.1 Sodium 139 Potassium 4.4 Chloride 110 H Carbon Dioxide 24 Anion Gap 9.4 BUN 19 H Creatinine 0.80 Estimated Creat Clear 47 Estimated GFR 69 Est GFR ( Amer) 83 Glucose 103 H Calcium 8.4 Magnesium 2.2 D Total Bilirubin 1.6 H AST 34 ALT 13 Alkaline Phosphatase 57 C-Reactive Protein 4.7 H Total Protein 6.3 Albumin 3.8 Globulin 2.5 Albumin/Globulin Ratio 1.5 DS: Diagnosis Discharge Diagnosis (1) Atrial fibrillation with RVR: Status: Acute Code(s): I48.91 - Unspecified atrial fibrillation Meds Home Medications and Allergies Home Medications ?Medication ?Instructions ?Recorded ?Confirmed ?Type omeprazole 20 mg tablet,delayed 20 mg PO DAILY 03/17/20 11/28/24 History release cholecalciferol (vitamin D3) 25 25 mcg PO DAILY 11/14/20 11/28/24 History mcg (1,000 unit) capsule cetirizine 10 mg tablet (Zyrtec) 5 mg PO HS 02/04/24 11/28/24 History atorvastatin 40 mg tablet 40 mg PO HS #90 tabs 10/10/24 11/28/24 Rx rivaroxaban 20 mg tablet (Xarelto) 20 mg PO QPMWITHMEAL 11/28/24 11/28/24 History dofetilide 250 mcg capsule 250 mcg PO BID 30 days #60 caps 12/01/24 Rx (Tikosyn) metoprolol succinate 25 mg 12.5 mg (1/2 x 25 mg) PO DAILY 30 12/01/24 Rx tablet,extended release 24 hr days #15 tabs New Prescriptions to Start Prescriptions: dofetilide [Tikosyn] Koffi Cook metoprolol succinate Koffi Cook Allergies Allergy/AdvReac Type Severity Reaction Status Date / Time amoxicillin Allergy Severe Unknown Verified 11/07/24 10:43 allergy reaction metronidazole (From Flagyl) Allergy Severe Unknown Verified 11/07/24 10:43 allergy reaction protectives, O.U. (From Allergy Severe Unknown Verified 11/07/24 10:43 Sensi-Care (foam)) allergy reaction Penicillins Allergy Intermediate EDEMA Verified 11/07/24 10:43 apixaban (From Eliquis) Allergy Mild Rash Verified 11/07/24 10:43 Sulfa (Sulfonamide Allergy Unknown Unknown Verified 11/07/24 10:43 Antibiotics) (SULFA allergy (SULFONAMIDE ANTIBIOTICS)) reaction adhesive tape Allergy Unknown Verified 11/07/24 10:43 allergy reaction amiodarone AdvReac Mild GI UPSET Verified 11/07/24 10:43 acetaminophen AdvReac Nausea Verified 11/07/24 10:43 Discharge Plan Disposition Patient Disposition: Home, Self-Care Condition: Fair Discharge Order Discharge Orders: Discharge Order (Routine); Ordered 12/01/24 Ordered By: Koffi Cook Follow up Plan Follow up with: Ina Lyle APRN [Nurse Practitioner, Cardiology] - 12/06/24 10:15 am Allen Love MD [Primary Care Provider, Internal Medicine] - 12/12/24 10:30 am Prescriptions/Medication Reconciliation: New metoprolol succinate 25 mg tablet extended release 24 hr 12.5 mg PO DAILY 30 Days Qty: 15 0RF dofetilide [Tikosyn] 250 mcg capsule 250 mcg PO BID 30 Days Qty: 60 0RF Continued cholecalciferol (vitamin D3) 25 mcg (1,000 unit) capsule 25 mcg PO DAILY atorvastatin 40 mg tablet 40 mg PO HS Qty: 90 1RF omeprazole 20 MG tablet,delayed release (DR/EC) 20 mg PO DAILY Xarelto 20 mg tablet 20 mg PO QPMWITHMEAL Patient Comments: TAKE 1 TABLET BY MOUTH IN THE EVENING WITH A MEAL FOR BLOOD THINNER cetirizine [Zyrtec] 10 mg Tablet 5 mg PO HS Discontinued diltiazem HCl 180 mg Capsule,Extended Release 24hr 180 mg PO DAILY 30 Days Qty: 30 0RF Problem Reconciliation Problems Reviewed?: Yes Patient Discharge Instructions Print Language: Chinese Providers Primary Care Provider: Allen Love Admit Provider: Koffi Cook Attending Provider: Koffi Cook
--- NOTE | 2024-12-02 10:41 | SW/DCPLANNER ---
Spoke with patient on the phone. Patient stated that she is doing good. Patient stated that she is aware of her upcoming appointments. Patient stated that she was able to get her new medicine picked up. Patient stated that she has no concerns or questions at this time. Dalton Gibbs
== END 2024-12-01 13:39 | disposition home or self-care (01) | DRG 309 ==
LOC: ER 12:35 → ICU 11-29 00:09 → 2ND 11-29 07:55 → ICU 11-29 07:55
PROVIDERS: Physician Assistant; Admitting Provider Student in an Organized Health Care Education/Training Program; Emergency Provider Student in an Organized Health Care Education/Training Program; PCP Internal Medicine Adolescent Medicine; Visit Provider Student in an Organized Health Care Education/Training Program
DX: I48.0 Paroxysmal atrial fibrillation (principal); I31.39 Other pericardial effusion (noninflammatory); L76.32 Postprocedural hematoma of skin and subcutaneous tissue following other procedure; I10 Essential (primary) hypertension; I25.10 Atherosclerotic heart disease of native coronary artery without angina pectoris; I49.5 Sick sinus syndrome; E78.5 Hyperlipidemia, unspecified; K21.9 Gastro-esophageal reflux disease without esophagitis; Y71.2 Prosthetic and other implants, materials and accessory cardiovascular devices associated with adverse incidents; Z95.0 Presence of cardiac pacemaker; Z79.01 Long term (current) use of anticoagulants; Z88.0 Allergy status to penicillin; Z88.2 Allergy status to sulfonamides; Z88.6 Allergy status to analgesic agent; Z91.048 Other nonmedicinal substance allergy status; Z88.8 Allergy status to other drugs, medicaments and biological substances
CPT/HCPCS: 36415; 71045; 80053; 81001; 83735; 83880; 84439; 84443; 84484; 85025; 86140; 87086; 87088; 87186; 93005; 93308; 99284; J1160; J2270; J3475

== ENCOUNTER 2024-12-06 11:40 | Outpatient (CLI) | payer MEDICARE, SELFPAY ==
--- OUTSIDE RECORDS SUMMARY | 2024-12-06 11:56 | XMS_ITS | Clinical Summary ---
Author Organization [facility] Address [address] [place] [phone] Phone Care Team Providers Care Steamer Blocker Name Role Phone Tim Bansal MD Unavailable [ ] Conditions or Problems Problem Name Problem Code Onset Date Status Entry Date Provider Comment Standard Description Annotate Benign Essential Hypertension 10310808 (SNOMED CT) Active Daxa Cee Benign hypertension C. Difficile colitis 459905624 (SNOMED CT) Active Daxa Cee Clostridium difficile colitis Medications Medication Instructions Start Date Stop Date Generic Name NDC Provider [facility] OMEPRAZOLE 20 MG TBEC QD OMEPRAZOLE [id number] Sharmila Marin ATENOLOL 50 MG TABS QD ATENOLOL [id number] Sharmila Marin VANCOCIN HCL 125 MG ORAL CAPSULE QID VANCOMYCIN HCL [id number] Sharmila Marin Medications Administered No information available. 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 Procedures No information available. Vital Signs No information available. Immunizations No information available. Advance Directives No information available.
--- OUTSIDE RECORDS SUMMARY | 2024-12-06 11:56 | XMS_ITS | Clinical Summary ---
Author Organization [facility] Address [address] [place] [address] Care Team Providers Care District Plant Superintendent Name Role Phone Allen Love MD Primary Care Provider [phone] Allergies Active Allergy Reactions Criticality Noted Date [...] or (1 - 1-dose 75+ series) 2017 NYW-ANXAS-32 Vaccine (3 - 2023- season) 2023 06/13/2020, [...] to complete this topic Insurance [place] [id number] MEDICARE Member Subscriber Plan / Payer (Ef fective 2007-Present) Name:Hazel Manning Member ID:[id number] Relation to Subscriber:Self Name:Hazel Manning Subscriber ID:[id number] Payer ID:MEDICARE Group ID:Not on file Type:Medicare [place] [facility] [place] [address] [address] [place] [address] [employer]ET[employer] Care Teams District Plant Superintendent Relationship Specialty Start Date End Date Allen Love MD [address] [place] [address] PCP - General 08/17/20
[2024-12-06 12:41] LABS: Anion Gap 12.2 mEq/L (5-15); Blood Urea Nitrogen 16 mg/dl (7-17); Calcium 9.5 mg/dl (8.4-10.2); Carbon Dioxide 27 mmol/L (22.0-30.0); Chloride 104 mmol/L (98-107); Creatinine,Serum 0.80 mg/dl (0.52-1.04); Estimated Glomerular Filt Rate 69 ml/min (>60); GFR (African American) 83 ML/MIN (>60); Glucose 105 mg/dl (74-100); Magnesium 1.5 mg/dl (1.6-2.3); Potassium 4.2 mmoL/L (3.5-5.1); Sodium 139 mmol/L (136-145)
== END 2024-12-06 23:59 | disposition home or self-care (01) ==
LOC: LAB 11:40
PROVIDERS: PCP Internal Medicine Adolescent Medicine; Visit Provider Nurse Practitioner
DX: I25.10 Atherosclerotic heart disease of native coronary artery without angina pectoris (principal); I11.9 Hypertensive heart disease without heart failure; I48.91 Unspecified atrial fibrillation
CPT/HCPCS: 36415; 80048; 83735

== ENCOUNTER 2024-12-13 13:52 | Outpatient (CLI) | payer MEDICARE, SELFPAY ==
--- OUTSIDE RECORDS SUMMARY | 2024-12-13 13:56 | XMS_ITS | Clinical Summary ---
Author Organization [facility] Address [address] [place] [address] Care Team Providers Care Bulk Clerk Name Role Phone Allen Love MD Primary Care Provider [phone] Allergies Active Allergy Reactions Criticality Noted Date [...] or (1 - 1-dose 75+ series) 2017 BSR-SCXVI-60 Vaccine (3 - 2024- season) 2024 06/13/2020, 05/16/2020 UKY-Influenza Vaccine (#1) 2024 HPV [...] to complete this topic Insurance [place] [id number] [place] [address] AETNA Care Teams Bulk Clerk Relationship Specialty Start Date End Date Allen Love MD [address] [place] [address] PCP - General 08/17/20
--- OUTSIDE RECORDS SUMMARY | 2024-12-13 13:56 | XMS_ITS | Clinical Summary ---
Author Organization [facility] Address [address] [place] [phone] Phone Care Team Providers Care Back Shoe Worker Name Role Phone Tim Bansal MD Unavailable [ ] Conditions or Problems Problem Name Problem Code Onset Date Status Entry Date Provider Comment Standard Description Annotate Benign Essential Hypertension 85373930 (SNOMED CT) Active Daxa Cee Benign hypertension C. Difficile colitis 840688411 (SNOMED CT) Active Daxa Cee Clostridium difficile colitis Medications Medication Instructions Start Date Stop Date Generic Name NDC Provider [facility]S OMEPRAZOLE 20 MG TBEC QD OMEPRAZOLE [id number] Sharmila Marin ATENOLOL 50 MG TABS QD ATENOLOL [id number] Sharmila Marin VANCOCIN HCL 125 MG ORAL CAPSULE QID VANCOMYCIN HCL [id number] Sharmila Marin Medications Administered No information available. 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 Procedures No information available. Vital Signs No information available. Immunizations No information available. Advance Directives No information available.
--- NOTE | 2024-12-13 14:00 | CA_ITS ---
APPROVED REPORT EXAM: Comprehensive 2D, Doppler, and color-flow Echocardiogram Java Developer With Security Clearance: Erica Grant RDCS Ht: 5 ft 6 in Wt: 151lbs BSA: 1.77 BP: 133/62 mmHg Indications: SOA M-Mode Dimensions RVDd 1.67 cm (0.9-2.6) LA Diam 2.86 cm (1.9-4.0) LVDd 4.09 cm (3.5-5.7) LVDs 2.64 cm (3.5-5.7) IVSd 1.08 cm (0.6-1.1) PWd 1.18 cm (0.6-1.1) EF (Teich) 65.30% FS 35.50% EDV (Teich) 73.80 mL ESV (Teich) 25.60 mL Other Information Study Quality: Fair Conclusion This is a limited TTE to evaluate for pericardial effusion. Limited windows are obtained. There is a moderate-sized, anterior pericardial effusion present. The largest pocket measures 1.5 cm in diastole. No evidence of chamber collapse. The pericardial effusion is heterogeneous in appearance, likely hemorrhagic, and is at least partially loculated. IVC is normal in size and collapsibility. Overall, there is no echo indications of tamponade. Compared to prior study from 11/30/2024 the size of the pericardial effusion is now larger. The above findings were relayed to the cardiology clinic team. The patient was referred back from the echo lab to outpatient cardiology clinic immediately after image acquisition to discuss the above findings. Electronically signed by : Carol Laguerre MD 12/13/2024 20:10:43
== END 2024-12-13 23:59 | disposition home or self-care (01) ==
LOC: RT 13:53
PROVIDERS: PCP Internal Medicine Adolescent Medicine; Visit Provider Internal Medicine
DX: I31.39 Other pericardial effusion (noninflammatory) (principal)
CPT/HCPCS: 93308

== ENCOUNTER 2024-12-14 08:07 | Inpatient (IN) | payer MEDICARE, SELFPAY ==
[2024-12-14] VITALS (24 sets, daily range): BP systolic 81–149; BP diastolic 37–115; PULSE 69–134; RESP 11–21; TEMP 36.6–36.9; O2SAT 93–99; BMI 25.0; BMI 22.8
--- NOTE | 2024-12-14 08:10 | PC.NURSE ---
DEBORA RUGGIERO at
--- NOTE | 2024-12-14 08:11 | ECG_ITS ---
APPROVED REPORT Exam: Resting ECG HR:135 bpm ECG Measurements Heart Rate 135 AXES QRSd 84 QRS 66 QT 265 T 31 QTc 344 Conclusion ATRIAL FIBRILLATION WITH RAPID VENTRICULAR RESPONSE WITH ABERRANT CONDUCTION OR VENTRICULAR PREMATURE COMPLEXES NONSPECIFIC ST & T-WAVE ABNORMALITY ABNORMAL RHYTHM ECG UNCONFIRMED REPORT A-fib with rapid ventricular response. Ventricular rate of 135 bpm. QTc of 344 Electronically signed by : JOSEPH CARROLL, 12/14/2024 15:46:43
--- NOTE | 2024-12-14 08:15 | CT_ITS ---
FINAL REPORT TECHNIQUE: Axial imaging of the chest is obtained after the administration of contrast. 3-D MIP reformatted images were also obtained and reviewed per PE protocol. This study was performed with techniques to keep radiation doses as low as reasonably achievable, (ALARA). Individualized dose reduction techniques using automated exposure control or adjustment of mA and/or kV according to the patient's size were employed. CLINICAL HISTORY: tachycardia, SOB, pericardial effusion FINDINGS: The pulmonary arteries are well filled. There is no evidence of pulmonary embolus. There is no aortic dissection. Heart size is normal. Soft tissue density surrounds the generator of the left pacemaker, could be related to hematoma or seroma. There is no mediastinal, hilar, or axillary lymphadenopathy. There is a moderate pericardial effusion. No pleural effusion is identified. There is a 4 mm subpleural medial right apical nodule well-seen on series 5, image 26. Limited evaluation of the upper abdomen reveals a nonspecific hypodense lesion in the spleen measuring 17 mm.. No acute osseous abnormality. IMPRESSION: No evidence of pulmonary embolism or aortic dissection. Moderate pericardial effusion. Abnormal soft tissue surrounds the generator of the pacemaker, may represent a hematoma. Right apical nodule. Recommend follow-up after risk stratification using Fleischner's criteria. Nonspecific hypodense lesion of the spleen. Reviewed, Interpreted and Dictated by Shaniqua Manning MD Transcribed by Tomasa Cazares Authenticated and [facility]
--- NOTE | 2024-12-14 08:17 | HMH.EDGENADL ---
Discharge Plan Disposition Patient Disposition: Admitted Clinical Impressions Clinical Impression: Atrial fibrillation with rapid ventricular response, Acute pericardial effusion Discharge ED Provider: Juan Diego Barbosa Adult HPI General Chief complaint: Arrhythmia/Palpitations Stated complaint: A-Fib Time Seen by Provider: 12/14/24 08:09 Mode of Arrival: Wheelchair Source of Information: Patient Limitations: No Limitations History of Present Illness HPI narrative: Hazel Manning is an 84y female with a past medical history of paroxysmal A-fib, hypertension, hyperlipidemia, coronary artery disease, GERD, status post cardiac pacemaker placement approximately 3 weeks ago who presents to the emergency department for complaints of concern for A-fib, shortness of breath. Patient was brought in from [facility] and is followed by Dr. Douglas's office for recent pacemaker placement and A-fib. Patient states that she was recently put on Tikosyn. She was seen by Dr. Medina yesterday was taken off of her Xarelto. She is known to have a pericardial effusion with unknown cause at this point and was going to get a noncontrasted CT scan tomorrow for follow-up of the pericardial effusion. Nurse from Dr. Douglas's office at the bedside states that she is supposed to see Dr. Painter at the [facility] tomorrow, but patient is unaware of any type of appointment or for what reason she would be going there. Patient states that this morning after waking at 6 AM, she felt shortness of breath and overall unwell, which is typical of when she is in A-fib. Patient denies any chest pain. She does report some back pain. Patient reports nausea but no vomiting. She states that these are symptoms typical of when she is in A-fib. She is also noted to have a large hematoma over the left pacemaker that Dr. Douglas is following closely. Related Data Home Medications ?Medication ?Instructions ?Recorded ?Confirmed omeprazole 20 mg tablet,delayed 20 mg PO DAILY 03/17/20 12/13/24 release cholecalciferol (vitamin D3) 25 25 mcg PO DAILY 11/14/20 12/13/24 mcg (1,000 unit) capsule cetirizine 10 mg tablet (Zyrtec) 5 mg PO HS 02/04/24 12/13/24 rivaroxaban 20 mg tablet (Xarelto) 20 mg PO QPMWITHMEAL 11/28/24 12/13/24 Held on 12/13/24. Instructions: Doctor's Order Previous Rx's ?Medication ?Instructions ?Recorded atorvastatin 40 mg tablet 40 mg PO HS #90 tabs 10/10/24 dofetilide 250 mcg capsule 250 mcg PO BID 30 days #60 caps 12/01/24 (Tikosyn) magnesium oxide 500 mg capsule 500 mg PO DAILY #30 caps 12/06/24 metoprolol succinate 50 mg 50 mg PO DAILY #30 tabs 12/06/24 tablet,extended release 24 hr (Toprol XL) Allergies Allergy/AdvReac Type Severity Reaction Status Date / Time amoxicillin Allergy Severe Unknown Verified 12/13/24 11:24 allergy reaction metronidazole (From Flagyl) Allergy Severe Unknown Verified 12/13/24 11:24 allergy reaction protectives, O.U. (From Allergy Severe Unknown Verified 12/13/24 11:24 Sensi-Care (foam)) allergy reaction Penicillins Allergy Intermediate EDEMA Verified 12/13/24 11:24 apixaban (From Eliquis) Allergy Mild Rash Verified 12/13/24 11:24 Sulfa (Sulfonamide Allergy Unknown Unknown Verified 12/13/24 11:24 Antibiotics) (SULFA allergy (SULFONAMIDE ANTIBIOTICS)) reaction adhesive tape Allergy Unknown Verified 12/13/24 11:24 allergy reaction amiodarone AdvReac Mild GI UPSET Verified 12/13/24 11:24 acetaminophen AdvReac Nausea Verified 12/13/24 11:24 PFS PFS Disclaimer: The information contained in this section may have been updated after the patient was seen, as this information can be updated by other users. Medical History Pacemaker Elevated brain natriuretic peptide (BNP) level Symptomatic bradycardia Urinary tract infection Shortness of Breath Tingling of face Visual disturbance Tinnitus Headache COVID-19 Diarrhea Arthritis Kidney stones Skin cancer A-fib Arrhythmia GERD (gastroesophageal reflux disease) HTN (hypertension) Osteoporosis HLD (hyperlipidemia) Atherosclerotic cardiovascular disease CAD (coronary artery disease) Surgical History History of permanent cardiac pacemaker placement Hx of local excision of skin lesion Basal carcinoma on neck and face History of cardiac catheterization History of tonsillectomy Family History Mother Cancer Father Cancer Other No significant family history Social History Smoking Status: Never smoker alcohol intake: never substance use type: denies use current occupational status: retired Travel in the last 8 weeks?: None household members: spouse housing: house current occupation: RETIRED [employer] caffeine: No Have you lived/traveled outside [place] in past 30 days?: No Contact w/someone who lives/traveled outside US past 30 days?: No Exposure to someone with infectious disease in past 14 days?: No Do you have a fever (greater than 100.4 F or 38 C)?: No Have you tested positive for COVID-19?: No Exposed to someone with COVID-19 in past 14 days?: No Do you have a sore throat?: No Do you have a cough?: No Do you have any weakness?: No Do you have any diarrhea?: No Are you experiencing any unusual bleeding?: No Do you have any muscle aches/pain?: No Do you have any abdominal pain?: No Are you experiencing loss of taste or smell?: No Other Medical History Have you received the Flu Vaccine for this season: No Have you received the Pneumonia Vaccine: Yes ROS Obtained: Yes Systems reviewed as appropriate & no additional complaints except as documented Physical Exam General General appearance: alert and in no apparent distress Comment: ill appearing Head Head exam: atraumatic Eye Eye exam: Present normal appearance ENT ENT exam: Present normal external ear exam Neck Neck exam: Present full ROM Chest Chest inspection: Present symmetric chest wall rise and other (Left-sided pacemaker with significant amount of bruising and hematoma. Steri-Strips in place. Dependent edema and bruising to left breast) Respiratory Respiratory exam: Present normal lung sounds bilaterally; Absent respiratory distress, wheezes or stridor Cardiovascular Cardiovascular exam: Present tachycardia and irregular rhythm Abdominal Exam Abdominal exam: Present soft; Absent tenderness or guarding Extremities Exam Extremities exam: Present normal inspection Back Exam Back exam: Present normal inspection Neurological Exam Neurological exam: Present alert and oriented X3 Psychiatric Psychiatric exam: Present normal affect Skin Skin exam: Present warm and dry Medical Decision Making Medical Records Screening: Per USPSTF and CDC recommendations, given the prevalence of disease in our region, it is our hospital?s policy to screen for HIV and viral Hepatitis for all patients aged 18 and over and those with ongoing risk factors. Ord Inquiry Pt receiving controlled substance: No Vital Signs: 12/14/24 08:18 12/14/24 08:30 12/14/24 09:07 Temperature 97.9 F Temperature Source Oral Pulse Rate 120 H 76 Pulse Rate [Left Radial] 134 H Respiratory Rate 12 12 13 Blood Pressure 118/66 108/92 L Blood Pressure [Right Arm] 118/66 Blood Pressure Mean [Right Arm] 83 02 Sat by Pulse Oximetry 99 98 97 Oxygen Delivery Method Room Air Room Air Room Air 12/14/24 10:04 Temperature 98.1 F Temperature Source Pulse Rate 70 Pulse Rate [Left Radial] Respiratory Rate 20 Blood Pressure 128/68 Blood Pressure [Right Arm] Blood Pressure Mean [Right Arm] 02 Sat by Pulse Oximetry Oxygen Delivery Method Room Air Lab Data Lab Results 12/14/24 08:17: WBC 7.8, RBC 4.46, Hgb 13.7, Hct 41.5, MCV 93.0, MCH 30.7, MCHC 33.0, RDW 14.6, Plt Count 387, MPV 10.6 H, Neut % (Auto) 64.5, Lymph % (Auto) 24.9, Stewart % (Auto) 7.0, Eos % (Auto) 2.4, Baso % (Auto) 0.9, Neut # (Auto) 5.0, Lymph # (Auto) 1.9, Stewart # (Auto) 0.5, Eos # (Auto) 0.2, Baso # (Auto) 0.1, PT 12.5, INR 1.14 H, APTT 29.3, VBG pH 7.48 H, VBG pCO2 32.3 L, VBG pO2 132.3 H, VBG HCO3 23.6, VBG Total CO2 24.6, VBG O2 Saturation 98.9 H, VBG Base Excess 0.2, VBG Lactic Acid 2.3 H, Sodium 138, Potassium 3.6, Chloride 105, Carbon Dioxide 25, Anion Gap 11.6, BUN 13, Creatinine 0.80, Estimated Creat Clear 47, Estimated GFR 69, Est GFR ( Amer) 83, Glucose 116 H, Calcium 9.8, Magnesium 1.8, Total Bilirubin 1.3, AST 48 H, ALT 36, Alkaline Phosphatase 63, Troponin I 0.02, NT-Pro-B Natriuret Pep 1030 H, Total Protein 7.3, Albumin 4.5, Globulin 2.8, Albumin/Globulin Ratio 1.6 12/14/24 08:17 12/14/24 08:17 Orders (Tests/Meds): ED MEDICATIONS Generic Name Dose Route Start Last Admin Trade Name Freq PRN Reason Stop Dose Admin Diltiazem HCl 100 mg/ Sodium 100 mls @ 5 mls/hr 12/14/24 09:41 12/14/24 09:53 Chloride IV 01/13/25 09:40 5 mg/hr .Q20H AUDELIA 5 mls/hr Protocol Administration 5 MG/HR Discontinued Medications Generic Name Dose Route Start Last Admin Trade Name Freq PRN Reason Stop Dose Admin Iopamidol 80 ml 12/14/24 08:57 12/14/24 09:00 Iopamidol-370 (76%);100ml Bottle IV 12/14/24 08:58 80 ml ONCE ONE Administration Metoprolol Tartrate 5 mg 12/14/24 08:15 12/14/24 08:40 Metoprolol Tartrate 5mg/5ml Vial IV 12/14/24 08:16 5 mg ONCE ONE Administration Sodium Chloride 10 ml 12/14/24 08:57 12/14/24 09:00 Sodium Chloride 0.9% 10ml Syr (Rad Only) IV 12/14/24 08:58 10 ml ONCE ONE Administration Sodium Chloride 50 ml 12/14/24 08:57 12/14/24 08:59 0.9 % Sodium Chloride 50 Ml Vial IV 12/14/24 08:58 50 ml ONCE ONE Administration ORDERS Category Date Time Status CT angio chest PE protocol Stat Cat Scan 12/14/24 08:15 Completed POCUS Point of Care (ER Only) Stat Exams 12/14/24 08:28 Completed BNP [NT Pro Brain Natriuretic Pep.] Stat Lab 12/14/24 08:17 Completed CBC w/Auto Diff [Complete Blood Count Auto Diff] Stat Lab 12/14/24 08:17 Completed CMP [Comprehensive Metabolic Panel] Stat Lab 12/14/24 08:17 Completed Magnesium Stat Lab 12/14/24 08:17 Completed PT INR [Prothrombin Time INR] Stat Lab 12/14/24 08:17 Completed PTT [Activated Partial Thrombo Time] Stat Lab 12/14/24 08:17 Completed Troponin I Q3H Lab 12/14/24 11:30 Ordered Troponin I Q3H Lab 12/14/24 14:30 Ordered Troponin I Stat Lab 12/14/24 08:17 Completed VBG [Venous Blood Gas] Stat RT 12/14/24 08:17 Completed ECG Data Tracing #1: I reviewed this ECG and interpreted as documented below: A-fib with RVR with a ventricular rate of [address] elevation or depression. QTc 344 Medical Decision Narrative: Hazel Manning is an 84y female with a past medical history of paroxysmal A-fib, hypertension, hyperlipidemia, coronary artery disease, GERD, status post cardiac pacemaker placement approximately 3 weeks ago who presents to the emergency department for complaints of concern for A-fib, shortness of breath. Patient was brought in from [facility] and is followed by Dr. Douglas's office for recent pacemaker placement and A-fib. Patient states that she was recently put on Tikosyn. She was seen by Dr. Medina yesterday was taken off of her Xarelto. She is known to have a pericardial effusion with unknown cause at this point and was going to get a noncontrasted CT scan tomorrow for follow-up of the pericardial effusion. Nurse from Dr. Douglas's office at the bedside states that she is supposed to see Dr. Painter at the [facility] tomorrow, but patient is unaware of any type of appointment or for what reason she would be going there. Patient states that this morning after waking at 6 AM, she felt shortness of breath and overall unwell, which is typical of when she is in A-fib. Patient denies any chest pain. She does report some back pain. Patient reports nausea but no vomiting. She states that these are symptoms typical of when she is in A-fib. She is also noted to have a large hematoma over the left pacemaker that Dr. Douglas is following closely. Patient states that she did not take her Xarelto yesterday as instructed. On arrival, patient noted to be tachycardic, initial blood pressure 145/101, oxygen saturation 99% on room air. Patient has a fairly large hematoma over the left anterior chest wall at the site of the pacemaker with dependent edema and bruising in the left breast. She is tachycardic with an irregular rhythm. No abnormal breath sounds. Per cardiology note from 12/13/2024 (yesterday), echo showed moderate-sized circumferential pericardial effusion, measures 1.2 cm in diastole, slight invagination of the right atrium and right ventricle during systole and diastole. Pacemaker placed on 11/23/2024. Hematoma still present and still will take a while to resolve. On PCOS and (previously intolerant to diltiazem or higher doses of metoprolol due to bradycardia and hypotension. Intolerant to amiodarone. Previously tried to advance sotalol with worsening bradycardia. Plan was to continue current meds and to obtain a limited echo. On addendum at 1505, pericardial effusion has gotten bigger on limited echo at that time. Discussed possible need for pericardiocentesis in the future but for today we will need to stop Xarelto. On the second addendum, Dr. Douglas spoke with Dr. Hernandez regarding patient's pericardial effusion and Dr. Hernandez will see her on for a possible pericardial window. Patient needs a stat noncontrast CT of the chest tomorrow due to pericardial effusion and plan to follow-up in clinic tomorrow with Dr. Laguerre. Per echo report from 12/13/24: Conclusion This is a limited TTE to evaluate for pericardial effusion. Limited windows are obtained. There is a moderate-sized, anterior pericardial effusion present. The largest pocket measures 1.5 cm in diastole. No evidence of chamber collapse. The pericardial effusion is heterogeneous in appearance, likely hemorrhagic, and is at least partially loculated. IVC is normal in size and collapsibility. Overall, there is no echo indications of tamponade. Compared to prior study from 11/30/2024 the size of the pericardial effusion is now larger. The above findings were relayed to the cardiology clinic team. The patient was referred back from the echo lab to outpatient cardiology clinic immediately after image acquisition to discuss the above findings. Differential diagnosis includes, but is not limited to: Enlarging pericardial effusion, ACS, pacemaker complication/malposition, A-fib with RVR, electrolyte derangement, metabolic derangement, pulmonary embolism, among others. The most morbid conditions were considered and workup was based on these. Workup in the emergency department included: CT pulmonary embolism protocol, CBC with differential, CMP, troponin, BNP, PT/INR, PTT, [id number] cardiac ultrasound. Patient was administered 5 mg of IV metoprolol. Patient's blood pressure 108 systolic after 5 mg of metoprolol. Rate still between 120-130. Will refrain from additional beta-blockers at this time given patient's effusion to avoid decreasing cardiac output and furthering hypotension. No leukocytosis present, INR mild elevated at 1.14. Coagulation studies otherwise unremarkable. Mildly alkalotic with pH of 7.48 and pCO2 close 32.3. Bicarb normal at 23.6 suggestive of mild respiratory alkalosis. Mildly elevated lactate of 2.3. Magnesium normal at 1.8. Electrolytes within normal limits. No BEAR. Mildly elevated AST of 48 but liver enzymes otherwise within normal limits. Troponin 0.02 and is downtrending compared to 11/28/2024, and was 0.03 at that time. BMP steadily elevated at 1030. CT imaging was interpreted by me personally. Pericardial fusion but no evidence of pulmonary embolism or aortic dissection. There is a hematoma pacemaker. See radiology report for details. I did discuss patient's case with Dr. Douglas who recommended admitting the patient diltiazem drip for rate control and he will see the patient today to discuss further management of her pericardial effusion, which is likely hemopericardium in the setting of recent pacemaker placement. I discussed this plan with the patient and she was in agreement with this plan. Patient was started on a diltiazem drip after improvement in her blood pressure and I then discussed patient's case with Dr. Cook with the hospital medicine service who agreed to admit the patient Procedures Limited Ultrasound Interpretation:: Limited cardiac ultrasound Indication: Shortness of breath, known pericardial effusion Identified cardiac views: -Cardiac parasternal long axis -Cardiac parasternal short axis -Cardiac apical four-chamber -Cardiac subxiphoid Findings: -Cardiac activity present -Wall motion grossly normal -Pericardial effusion present -Right heart strain absent, no Martin sign, no right ventricular diastolic collapse. Negative for tamponade Impression: - From above Images were saved to permanent archive The study was technically adequate CPT: 39369 This study was performed by me, and I personally interpreted all images/videos. Based on my clinical judgement, these images were adequate and did not necessitate further imaging. Critical Care Critical Care Time Critical Care Time: Yes Attestation: On 12/14/24, the high probability of a clinically significant, sudden or life threatening deterioration of the following system(s) required my full and direct attention, intervention and personal management. The time I documented below is in addition to time spent performing reported procedures but includes the following listed in this critical care notation. Total Time Total Critical Care Time: 35
--- NOTE | 2024-12-14 08:18 | PC.NURSE ---
RT aware of VBG order; spoke with Lavonne
[2024-12-14 08:23] LABS: Hematocrit 41.5 % (37.0-47.0); Hemoglobin 13.7 g/dL (12.2-16.2); Immature Granulocytes % 0.3 %; Mean Corpuscular HGB Conc 33.0 g/dL (31.8-35.4); Mean Corpuscular Hemoglobin 30.7 pg (27.0-31.2); Mean Corpuscular Volume 93.0 fl (81-99); Nucleated Red Blood Cells % 0 %; Platelet Count 387 K/mm3 (142-424); Red Blood Count 4.46 M/mm3 (4.20-5.40); Red Cell Distribution Width-SD 49.5 fL; White Blood Count 7.8 K/mm3 (4.8-10.8)
[2024-12-14 08:25] LABS: VBG HCO3 23.6 mmol/L (23-30); VBG PCO2 32.3 mmol/L (35-51); VBG PH 7.48 mmol/L (7.31-7.41); VBG PO2 132.3 mmol/L (28-40)
[2024-12-14 08:27] LABS: Lactate Venous 2.3 mmol/L (0.4-2.0)
[2024-12-14 08:35] LABS: Alanine Aminotransferase 36 U/L (12-78); Albumin Level 4.5 g/dl (3.5-5.0); Albumin/Globulin Ratio 1.6 (1.1-1.8); Alkaline Phosphatase 63 U/L (38-126); Anion Gap 11.6 mEq/L (5-15); Aspartate Amino Transferase 48 U/L (14-36); Bilirubin,Total 1.3 mg/dl (0.2-1.3); Blood Urea Nitrogen 13 mg/dl (7-17); Calcium 9.8 mg/dl (8.4-10.2); Carbon Dioxide 25 mmol/L (22.0-30.0); Chloride 105 mmol/L (98-107); Creatinine Clearance Estimated 47 mL/min (50-200); Creatinine,Serum 0.80 mg/dl (0.52-1.04); Estimated Glomerular Filt Rate 69 ml/min (>60); GFR (African American) 83 ML/MIN (>60); Globulin 2.8 g/dL (1.3-3.2); Glucose 116 mg/dl (74-100); Magnesium 1.8 mg/dl (1.6-2.3); Potassium 3.6 mmoL/L (3.5-5.1); Sodium 138 mmol/L (136-145); Total Protein,Serum 7.3 g/dl (6.3-8.2)
[2024-12-14] MEDS: METOPROLOL TARTRATE 5MG/5ML VIAL 5 MG IV (08:40)
[2024-12-14 08:41] LABS: Activated Partial Thrombo Time 29.3 seconds (22.8-30.6); INR 1.14 (0.9-1.1); Prothrombin Time 12.5 seconds (10.1-12.5)
[2024-12-14 08:46] LABS: NT Pro Brain Natriuretic Pep. 1030 pg/mL (0-450); Troponin I 0.02 ng/ml (0.00-0.034)
--- NOTE | 2024-12-14 08:49 | PC.NURSE ---
pt to CT
[2024-12-14] MEDS: 0.9 % SODIUM CHLORIDE 50 ML VIAL IV (08:59)
[2024-12-14] MEDS: SODIUM CHLORIDE 0.9% 10ML SYR (RAD ONLY) 10 ML IV (09:00)
[2024-12-14] MEDS: IOPAMIDOL-370 (76%);100ML BOTTLE 80 ML IV (09:00)
--- NOTE | 2024-12-14 09:03 | PC.NURSE ---
pt returned from CT
--- NOTE | 2024-12-14 09:11 | PC.NURSE ---
Allergy bracelet placed on left wrist. Lights turned off per pts request; Spouse at BS
--- NOTE | 2024-12-14 09:55 | PC.NURSE ---
puttying and calking supervisor contacted for bed.
--- NOTE | 2024-12-14 10:15 | PC.NURSE ---
pt arrived to the floor from the ER via wheelchair on diltiazem drip
--- NOTE | 2024-12-14 10:15 | P.HP_ITS ---
<Statement entered by Koffi Cook MD - 12/15/24 10:48> Personally evaluated patient and agree with the plan of care as outlined by the DIRECTOR CHEMISTRY. History of Present Illness *Admission Date: 12/14/24 *Reason for visit:: fast heart rate *History of present illness: Ms. Manning is a 84-year-old female who presented to the emergency department today due to increased heart rate and known pericardial effusion. She was seen yesterday in the cardiology office and was found to have a acute pericardial effusion likely from pacemaker placement and anticoagulation. She has a primary medical history of paroxysmal A-fib with RVR, pacemaker placement, hypertension, hyperlipidemia, CAD, GERD. She was seen yesterday in the cardiology office and had an echo which revealed a moderate pericardial effusion. After discussion with cardiology and [facility] it was felt the patient may need a pericardial window procedure. Dr. Douglas spoke with Dr. Hernandez who stated he would see the patient on and that she needed a stat Noncon CT. Patient was contacted to come in today for CT but stated her heart rate had significantly increased and she was short of breath, she presented to the emergency department where workup revealed she was in A-fib RVR, rate 130s. Patient was given 5 mg Lopressor IV and initiated on diltiazem drip. Cardiology was consulted from the emergency department who recommend admission. [facility] Disclaimer: The information contained in this section may have been updated after the patient was seen, as this information can be updated by other users. Medical History Pacemaker Elevated brain natriuretic peptide (BNP) level Symptomatic bradycardia Urinary tract infection Shortness of Breath Tingling of face Visual disturbance Tinnitus Headache COVID-19 Diarrhea Arthritis Kidney stones Skin cancer A-fib Arrhythmia GERD (gastroesophageal reflux disease) HTN (hypertension) Osteoporosis HLD (hyperlipidemia) Atherosclerotic cardiovascular disease CAD (coronary artery disease) Surgical History History of permanent cardiac pacemaker placement Hx of local excision of skin lesion Basal carcinoma on neck and face History of cardiac catheterization History of tonsillectomy Family History Mother Cancer Father Cancer Other No significant family history Social History (Reviewed 12/13/24 @ 11:24 by Halie Layne Smoking Status: Never smoker alcohol intake: never substance use type: denies use current occupational status: retired Travel in the last 8 weeks?: None household members: spouse housing: house 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 caffeine: No Have you lived/traveled outside [place] in past 30 days?: No Contact w/someone who lives/traveled outside US past 30 days?: No Exposure to someone with infectious disease in past 14 days?: No Do you have a fever (greater than 100.4 F or 38 C)?: No Have you tested positive for COVID-19?: No Exposed to someone with COVID-19 in past 14 days?: No Do you have a sore throat?: No Do you have a cough?: No Do you have any weakness?: No Do you have any diarrhea?: No Are you experiencing any unusual bleeding?: No Do you have any muscle aches/pain?: No Do you have any abdominal pain?: No Are you experiencing loss of taste or smell?: No Other Medical History Have you received the Flu Vaccine for this season: No Have you received the Pneumonia Vaccine: Yes Review of Systems Constitutional Constitutional: Denies fever(s) and Denies poor appetite *Cardiovascular Cardiovascular: Denies chest pain, Denies dyspnea and Reports rapid heart rate *Respiratory Respiratory: Denies chest congestion, Denies cough and Denies dyspnea *Gastrointestinal Gastrointestinal: Denies abdominal pain, Denies loose stools, Denies nausea and Denies vomiting *Genitourinary Genitourinary: Denies difficulty voiding and Denies dysuria Meds Home Medications and Allergies Home Medications ?Medication ?Instructions ?Recorded ?Confirmed ?Type omeprazole 20 mg tablet,delayed 20 mg PO DAILY 0 12/14/24 History release cholecalciferol (vitamin D3) 25 25 mcg PO DAILY 12/14/24 History mcg (1,000 unit) capsule cetirizine 10 mg tablet (Zyrtec) 5 mg PO HS 02/04/24 0 12/14/24 History atorvastatin 40 mg tablet 40 mg PO HS #90 tabs 5 12/14/24 Rx rivaroxaban 20 mg tablet (Xarelto) 20 mg PO QPMWITHMEA L 11/28/24 12/14/24 History Held on 12/13/24. Instructions: Doctor's Order dofetilide 250 mcg capsule 250 mcg PO BID 30 days #60 caps 12/01/24 12/14/24 Rx (Tikosyn) magnesium oxide 500 mg capsule 500 mg PO DAILY #30 cap s 12/06/24 12/14/24 Rx metoprolol succinate 50 mg 50 mg PO DAILY #30 tabs 05/3112/14/24 Rx tablet,extended release 24 hr (Toprol XL) New Prescriptions to Start Prescriptions: Allergies Allergy/AdvReac Type Severity Reaction Status Date / Time amoxicillin Allergy Severe Unknown Verified 12/13/24 11:24 allergy reaction metronidazole (From Flagyl) Allergy Severe Unknown Verified 12/13/24 11:24 allergy reaction protectives, O.U. (From Allergy Severe Unknown Verified 12/13/24 11:24 Sensi-Care (foam)) allergy reaction Penicillins Allergy Intermediate EDEMA Verified 12/13/24 11:24 apixaban (From Eliquis) Allergy Mild Rash Verified 12/13/24 11:24 Sulfa (Sulfonamide Allergy Unknown Unknown Verified 12/13/24 11:24 Antibiotics) (SULFA allergy (SULFONAMIDE ANTIBIOTICS)) reaction adhesive tape Allergy Unknown Verified 12/13/24 11:24 allergy reaction amiodarone AdvReac Mild GI UPSET Verified 12/13/24 11:24 acetaminophen AdvReac Nausea Verified 12/13/24 11:24 Exam Data for Last 24 hours Vital signs and Labs for Last 24 Hours: Temp Pulse Resp BP Pulse Ox O2 Del Method 98.1 F 70 20 128/68 97 Room Air 12/14/24 10:04 12/14/24 10:04 12/14/24 10:04 12/14/24 10:04 12/14/24 09:07 12/14/24 10:04 Laboratory Results - last 24 hr 12/14/24 08:17: WBC 7.8, RBC 4.46, Hgb 13.7, Hct 41.5, MCV 93.0, MCH 30.7, MCHC 33.0, RDW 14.6, Plt Count 387, MPV 10.6 H, Neut % (Auto) 64.5, Lymph % (Auto) 24.9, Mccormick % (Auto) 7.0, Eos % (Auto) 2.4, Baso % (Auto) 0.9, Neut # (Auto) 5.0, Lymph # (Auto) 1.9, Mccormick # (Auto) 0.5, Eos # (Auto) 0.2, Baso # (Auto) 0.1, PT 12.5, INR 1.14 H, APTT 29.3, VBG pH 7.48 H, VBG pCO2 32.3 L, VBG pO2 132.3 H, VBG HCO3 23.6, VBG Total CO2 24.6, VBG O2 Saturation 98.9 H, VBG Base Excess 0 .2, VBG Lactic Acid 2.3 H, Sodium 138, Potassium 3.6, Chloride 105, Carbon Dioxide 25, Anion Gap 11.6, BUN 13, Creatinine 0.80, Estimated Creat Clear 47, Estimated GFR 69, Est GFR ( Amer) 83, Glucose 116 H, Calcium 9.8, Magnesium 1.8, Total Bilirubin 1.3, AST 48 H, ALT 36, Alkaline Phosphatase 63, Troponin I 0.02, NT-Pro-B Natriuret Pep 1030 H, Total Protein 7.3, Albumin 4.5, Globulin 2.8, Albumin/Globulin Ratio 1.6 I & O for Last 24 hours: Intake & Output 12/11/24 12/12/24 12/13/24 12/14/24 23:59 23:59 23:59 23:59 Weight 68.039 kg Constitutional Constitutional: no acute distress *Routine HEENT Exam Head: Present normocephalic Eye: Present EOMI and PERRL ENT: Present mucous membranes moist *Routine Neck Exam Neck: Present supple; Absent lymphadenopathy Routine Chest/Breast/Axilla Exam Chest wall: Present pacemaker (Left chest hematoma from pacemaker site) *Routine Respiratory Exam Respiratory: Present CTA bilaterally *Routine Cardiovascular Exam Cardiovascular: Present RRR *Routine Abdominal Exam Abdominal: Present soft and normoactive bowel sounds; Absent tenderness *Routine Rectal Exam Rectal:: deferred *Routine Genitalia Exam Genitalia:: deferred *Routine Extremities Exam Extremities: Absent cyanosis, clubbing or edema *Routine Skin Exam Skin: Present warm; Absent rash *Routine Neurological Exam Neurological: Present alert and oriented X3 Assessment and Plan *Assessment and plan (1) Acute pericardial effusion: Status: Acute Category: Medical Code(s): I30.9 - Acute pericarditis, unspecified (2) Atrial fibrillation with rapid ventricular response: Status: Acute Category: Medical Code(s): I48.91 - Unspecified atrial fibrillation (3) Status post cardiac pacemaker procedure: Status: Acute Category: Surgical Code(s): Z95.0 - Presence of cardiac pacemaker (4) Paroxysmal A-fib: Status: Acute Category: Medical Code(s): I48.0 - Paroxysmal atrial fibrillation (5) Hypertension: Status: Acute Qualifiers: Hypertension type: primary hypertension Qualified Code(s): I10 - Essential (primary) hypertension Category: Medical Code(s): I10 - Essential (primary) hypertension (6) HLD (hyperlipidemia): Status: Chronic Qualifiers: Hyperlipidemia type: mixed hyperlipidemia Qualified Code(s): E78.2 - M ixed hyperlipidemia Category: Medical Code(s): E78.5 - Hyperlipidemia, unspecified (7) CAD (coronary artery disease): Status: Chronic Qualifiers: Coronary Disease-Associated Artery/Lesion type: [place] artery [place] vs. transplanted heart: [place] heart Associated angina: without angina Qualified Code(s): I25.10 - Atherosclerotic heart disease of [place] coronary artery without angina pectoris Category: Medical Code(s): I25.10 - Atherosclerotic heart disease of [place] coronary artery without angina pectoris (8) GERD (gastroesophageal reflux disease): Status: Acute Qualifiers: Esophagitis presence: with esophagitis Esophagitis bleeding: without hemorrhage Qualified Code(s): K21.00 - Gastro-esophageal reflux disease with esophagitis, without bleeding Category: Medical Code(s): K21.9 - Gastro-esophageal reflux disease without esophagitis Plan Ms. Manning is a 84-year-old female who presented to the emergency department today due to increased heart rate and known pericardial effusion. She was seen yesterday in the cardiology office and was found to have a acute pericardial effusion likely from pacemaker placement and anticoagulation. She has a primary medical history of paroxysmal A-fib with RVR, pacemaker placement, hypertension, hyperlipidemia, CAD, GERD. She was seen yesterday in the cardiology office and had an echo which revealed a moderate pericardial effusion. After discussion with cardiology and [facility] it was felt the patient may need a pericardial window procedure. Dr. Douglas spoke with Dr. Hernandez who stated he would see the patient on and that she needed a stat Chest CT. Patient was contacted to come in today for CT but stated her heart rate had significantly increased and she was short of breath, she presented to the emergency department where workup revealed she was in A-fib RVR, rate 130s. Patient was given 5 mg Lopressor IV and initiated on diltiazem drip. Cardiology was consulted from the emergency department who recommend admission. Cardiology recommended admission and probable transfer to for pericardial window procedure with Dr. Hernandez, hospital medicine consulted and agreeable to admission. Plan of care was as follows: #Acute pericardial effusion #Atrial fibrillation with RVR/paroxysmal A-fib #Status post cardiac pacemaker procedure ? Patient had echocardiogram on Thursday, 12/13 which revealed a moderate-sized, anterior pericardial effusion present. Pocket measuring 1.5 cm. Pericardial effusion is heterogeneous in appearance, likely hemorrhagic, and is at least partially lobulated. Compared to the prior study the size of the pericardial effusion is not larger. ? Recommendations by cardiology yesterday were for the patient to have chest CT done today in outpatient setting and follow-up with Dr. Hernnadez at for possible procedure on . Patient began having increased heart rate and shortness of breath this morning and came to the emergency department where she was found to be in A-fib RVR. Patient has failed multiple outpatient therapies, amiodarone, sotalol, diltiazem. After pacemaker placement she was placed on Tikosyn and metoprolol for rhythm and rate control. Patient was given metoprolol 5 milligram IV and started on a diltiazem drip in the emergency department, she is now atrial paced with a rate of 70. Patient placed on continuous cardiac telemetry. Due to patient's recurrent A-fib with RVR patient should be considered for cardiac ablation post pericardial window procedure. ? Dr. Hernandez has accepted the patient at , and patient will be transferred tomorrow morning for procedure tomorrow afternoon. Patient and family are agreeable to this plan. ? Patient will remain on the diltiazem drip and we will resume her home metoprolol 50 mg daily and Tikosyn 250 mcg twice daily. This is per cardiology's recommendation. ? Due to hemorrhagic pericardial effusion we will be holding Xarelto 20 mg daily at this time. ? CBC and CMP ordered for the a.m. Patient labs currently stable, hemoglobin 13.7, potassium 3.6, sodium 138, creatinine 0.80. Troponin at patient baseline 0.02. #CAD: Continue atorvastatin 40 mg at bedtime. #GERD: Continue omeprazole 20 mg daily. Full code Ambulate as tolerated VTE?[facility] Cardiac diet, n.p.o. after midnight
--- NOTE | 2024-12-14 11:21 | HMH.PHAINT1 ---
Pharmacy Intervention Comments: MEDICATION RECONCILIATION COMPLETED ON PATIENT USING EXTERNAL FILL HISTORY FROM PHARMACY, DISCHARGE SUMMARY FROM PREVIOUS ADMISSION, AND LIST FROM CARDIOLOGY OFFICE. -CLARENCE KIM, PHARMD
--- NOTE | 2024-12-14 11:23 | ECG_ITS ---
APPROVED REPORT Exam: Resting ECG HR:69 bpm ECG Measurements Heart Rate 69 AXES MA 222 P 93 QRSd 91 QRS 50 QT 446 T 99 QTc 466 Conclusion ELECTRONIC ATRIAL PACEMAKER MODERATE T-WAVE ABNORMALITY, CONSIDER LATERAL ISCHEMIA [-0.1+ mV T-WAVE IN I/aVL/V5/V6] ABNORMAL ECG UNCONFIRMED REPORT Electronically signed by : Allen Love MD 12/15/2024 09:09:24
--- NOTE | 2024-12-14 11:51 | EXP.CARD.CON ---
History of Present Illness History of Present Illness Consult date: 12/14/24 Requesting physician: Juan Diego Barbosa Consult reason: atrial fibrillation Chief complaint: atrial fibrillation History of present illness: This is an 84-year-old female who presented to the emergency department with complaints of atrial fibrillation. The patient has a past medical history of paroxysmal atrial fibrillation, hypertension, hyperlipidemia, CAD and is status post permanent pacemaker placement approximately 3 weeks ago. The patient states that she woke up at 6 AM this morning and was in atrial fibrillation with a rapid heart rate. She was also short of breath with her atrial fibrillation. She denies any chest pain or pressure. She denies any fever, chills, nausea, vomiting or diarrhea. The patient has a known permanent pacemaker placed and was recently started on Tikosyn for control of her atrial fibrillation. She did have a permanent pacemaker placed 3 weeks ago to help with heart rate control to be able to take antiarrhythmics. She did have a pericardial effusion following placement which did improve. She has been restarted on her anticoagulation and was evaluated yesterday in cardiology by Dr. Medina and was found to have worsening pericardial effusion but she was not having any symptoms. Her Xarelto was stopped. She had been scheduled to see Dr. Hernandez on for consideration of a pericardial window as this pericardial effusion is likely a bloody effusion from the permanent pacemaker placement. But, she woke up at 6 AM this morning and felt unwell and decided to come to the hospital. She was evaluated in the emergency department found to be in atrial fibrillation with RVR. She was treated with IV metoprolol and started on a diltiazem drip. She has converted to an atrial pacing rhythm at this time. [facility] Disclaimer: The information contained in this section may have been updated after the patient was seen, as this information can be updated by other users. Medical History Pacemaker Elevated brain natriuretic peptide (BNP) level Symptomatic bradycardia Urinary tract infection Shortness of Breath Tingling of face Visual disturbance Tinnitus Headache COVID-19 Diarrhea Arthritis Kidney stones Skin cancer A-fib Arrhythmia GERD (gastroesophageal reflux disease) HTN (hypertension) Osteoporosis HLD (hyperlipidemia) Atherosclerotic cardiovascular disease CAD (coronary artery disease) Surgical History History of permanent cardiac pacemaker placement Hx of local excision of skin lesion Basal carcinoma on neck and face History of cardiac catheterization History of tonsillectomy Family History Mother Cancer Father Cancer Other No significant family history Social History Smoking Status: Never smoker alcohol intake: never substance use type: denies use current occupational status: retired Travel in the last 8 weeks?: None household members: spouse housing: house 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 caffeine: No Have you lived/traveled outside [place] in past 30 days?: No Contact w/someone who lives/traveled outside [place] past 30 days?: No Exposure to someone with infectious disease in past 14 days?: No Do you have a fever (greater than 100.4 F or 38 C)?: No Have you tested positive for COVID-19?: No Exposed to someone with COVID-19 in past 14 days?: No Do you have a sore throat?: No Do you have a cough?: No Do you have any weakness?: No Do you have any diarrhea?: No Are you experiencing any unusual bleeding?: No Do you have any muscle aches/pain?: No Do you have any abdominal pain?: No Are you experiencing loss of taste or smell?: No Review of Systems Review of Systems Review of systems:: pertinent systems reviewed and negative unless documented below Constitutional Constitutional: Reports system reviewed and no additional complaints, except as documented Eyes Eyes: Reports system reviewed and no additional complaints, except as documented ENT Ears, Nose, Mouth, and Throat: Reports system reviewed and no additional complaints, except as documented *Cardiovascular Cardiovascular: Reports system reviewed and no additional complaints, except as documented, Reports dyspnea, Reports dyspnea on exertion, Reports palpitations and Reports rapid heart rate *Respiratory Respiratory: Reports system reviewed and no additional complaints, except as documented, Reports dyspnea and Reports dyspnea on exertion *Gastrointestinal Gastrointestinal: Reports system reviewed and no additional complaints, except as documented *Genitourinary Genitourinary: Reports system reviewed and no additional complaints, except as documented *Musculoskeletal Musculoskeletal: Reports system reviewed and no additional complaints, except as documented Integumentary/Breasts Skin/Breast: Reports system reviewed and no additional complaints, except as documented *Neurologic Neurologic: Reports system reviewed and no additional complaints, except as documented Psychiatric Psychiatric: Reports system reviewed and no additional complaints, except as documented Endocrine Endocrine: Reports system reviewed and no additional complaints, except as documented and Reports palpitations Hematologic/Lymphatic Hematologic/Lymphatic: Reports system reviewed and no additional complaints, except as documented Allergic/Immunologic Allergic/Immunologic: Reports system reviewed and no additional complaints, except as documented Exam Data for Last 24 hours Vital signs and Labs for Last 24 Hours: Temp Pulse Resp BP Pulse Ox O2 Del Method 98.1 F 108 H 20 128/68 97 Room Air 12/14/24 10:04 12/14/24 10:18 12/14/24 10:04 12/14/24 10:04 12/14/24 09:07 12/14/24 10:04 Laboratory Results - last 24 hr 12/14/24 08:17: WBC 7.8, RBC 4.46, Hgb 13.7, Hct 41.5, MCV 93.0, MCH 30.7, MCHC 33.0, RDW 14.6, Plt Count 387, MPV 10.6 H, Neut % (Auto) 64.5, Lymph % (Auto) 24.9, [place] % (Auto) 7.0, Eos % (Auto) 2.4, Baso % (Auto) 0.9, Neut # (Auto) 5.0, Lymph # (Auto) 1.9, [place] # (Auto) 0.5, Eos # (Auto) 0.2, Baso # (Auto) 0.1, PT 12.5, INR 1.14 H, APTT 29.3, VBG pH 7.48 H, VBG pCO2 32.3 L, VBG pO2 132.3 H, VBG HCO3 23.6, VBG Total CO2 24.6, VBG O2 Saturation 98.9 H, VBG Base Excess 0.2, VBG Lactic Acid 2.3 H, Sodium 138, Potassium 3.6, Chloride 105, Carbon Dioxide 25, Anion Gap 11.6, BUN 13, Creatinine 0.80, Estimated Creat Clear 47, Estimated GFR 69, Est GFR ( Amer) 83, Glucose 116 H, Calcium 9.8, Magnesium 1.8, Total Bilirubin 1.3, AST 48 H, ALT 36, Alkaline Phosphatase 63, Troponin I 0.02, NT-Pro-B Natriuret Pep 1030 H, Total Protein 7.3, Albumin 4.5, Globulin 2.8, Albumin/Globulin Ratio 1.6 I & O for Last 24 hours: Intake & Output 12/11/24 12/12/24 12/13/24 12/14/24 23:59 23:59 23:59 23:59 Intake Total 3.75 / 3.75 Balance 3.75 / 3.75 Weight 139 lb 6 oz Constitutional Constitutional: no acute distress and average body habitus *Routine HEENT Exam Head: Present normocephalic and atraumatic ENT: Present mucous membranes moist *Routine Neck Exam Neck: Present supple, full ROM and normal carotid upstroke; Absent JVD, carotid bruit or lymphadenopathy *Routine Respiratory Exam Respiratory: Present CTA bilaterally, normal respiratory effort, able to speak in complete sentences and symmetric chest movement *Routine Cardiovascular Exam Cardiovascular: Present RRR, Normal S1 and Normal S2; Absent murmur or gallop *Routine Abdominal Exam Abdominal: Present soft and normoactive bowel sounds; Absent tenderness, distended or organomegaly *Routine Extremities Exam Extremities: Present full ROM, pulses intact and normal capillary refill; Absent cyanosis, clubbing or edema *Routine Skin Exam Skin: Present intact and warm; Absent erythema *Routine Neurological Exam Neurological: Present alert, oriented X3 and CN II-XII intact; Absent sensory deficit or motor deficit Routine Psychiatric Exam Psychiatric: Present normal affect Meds Home Medications and Allergies Home Medications ?Medication ?Instructions ?Recorded ?Confirmed ?Type omeprazole 20 mg tablet,delayed 20 mg PO DAILY 03/17/20 12/14/24 History release cholecalciferol (vitamin D3) 25 25 mcg PO DAILY 11/14/20 12/14/24 History mcg (1,000 unit) capsule cetirizine 10 mg tablet (Zyrtec) 5 mg PO HS 02/04/24 12/14/24 History atorvastatin 40 mg tablet 40 mg PO HS #90 tabs 10/10/24 12/14/24 Rx rivaroxaban 20 mg tablet (Xarelto) 20 mg PO QPMWITHMEAL 11/28/24 12/14/24 History Held on 12/13/24. Instructions: Doctor's Order dofetilide 250 mcg capsule 250 mcg PO BID 30 days #60 caps 12/01/24 12/14/24 Rx (Tikosyn) magnesium oxide 500 mg capsule 500 mg PO DAILY #30 caps 12/06/24 12/14/24 Rx metoprolol succinate 50 mg 50 mg PO DAILY #30 tabs 12/06/24 12/14/24 Rx tablet,extended release 24 hr (Toprol XL) New Prescriptions to Start Prescriptions: Allergies Allergy/AdvReac Type Severity Reaction Status Date / Time amoxicillin Allergy Severe Unknown Verified 12/13/24 11:24 allergy reaction metronidazole (From Flagyl) Allergy Severe Unknown Verified 12/13/24 11:24 allergy reaction protectives, O.U. (From Allergy Severe Unknown Verified 12/13/24 11:24 Sensi-Care (foam)) allergy reaction Penicillins Allergy Intermediate EDEMA Verified 12/13/24 11:24 apixaban (From Eliquis) Allergy Mild Rash Verified 12/13/24 11:24 Sulfa (Sulfonamide Allergy Unknown Unknown Verified 12/13/24 11:24 Antibiotics) (SULFA allergy (SULFONAMIDE ANTIBIOTICS)) reaction adhesive tape Allergy Unknown Verified 12/13/24 11:24 allergy reaction amiodarone AdvReac Mild GI UPSET Verified 12/13/24 11:24 acetaminophen AdvReac Nausea Verified 12/13/24 11:24 Assessment and Plan *Assessment and plan (1) Acute pericardial effusion: Status: Acute Category: Medical Code(s): I30.9 - Acute pericarditis, unspecified (2) Atrial fibrillation with rapid ventricular response: Status: Acute Category: Medical Code(s): I48.91 - Unspecified atrial fibrillation (3) Status post cardiac pacemaker procedure: Status: Acute Category: Surgical Code(s): Z95.0 - Presence of cardiac pacemaker (4) Paroxysmal A-fib: Status: Acute Category: Medical Code(s): I48.0 - Paroxysmal atrial fibrillation (5) Hypertension: Status: Acute Qualifiers: Hypertension type: primary hypertension Qualified Code(s): I10 - Essential (primary) hypertension Category: Medical Code(s): I10 - Essential (primary) hypertension (6) HHD (hypertensive heart disease): Status: Chronic Qualifiers: Heart failure presence: without heart failure Qualified Code(s): I11.9 - Hypertensive heart disease without heart failure Category: Medical Code(s): I11.9 - Hypertensive heart disease without heart failure (7) HLD (hyperlipidemia): Status: Chronic Qualifiers: Hyperlipidemia type: mixed hyperlipidemia Qualified Code(s): E78.2 - Mixed hyperlipidemia Category: Medical Code(s): E78.5 - Hyperlipidemia, unspecified (8) CAD (coronary artery disease): Status: Chronic Qualifiers: Associated angina: without angina Coronary Disease-Associated Artery/Lesion type: [place] artery [place] vs. transplanted heart: [place] heart Qualified Code(s): I25.10 - Atherosclerotic heart disease of [place] coronary artery without angina pectoris Category: Medical Code(s): I25.10 - Atherosclerotic heart disease of [place] coronary artery without angina pectoris (9) GERD (gastroesophageal reflux disease): Status: Acute Qualifiers: Esophagitis bleeding: without hemorrhage Esophagitis presence: with esophagitis Qualified Code(s): K21.00 - Gastro-esophageal reflux disease with esophagitis, without bleeding Category: Medical Code(s): K21.9 - Gastro-esophageal reflux disease without esophagitis Plan Plan: 1. The patient was admitted to the hospital secondary to atrial fibrillation with RVR and a pericardial effusion. She was treated with IV metoprolol and started on diltiazem drip. She is now in sinus rhythm with an A-paced rhythm. Continue diltiazem drip for suppression of her atrial fibrillation. 2. The patient keeps having breakthrough atrial fibrillation despite being on the Tikosyn. She should be considered for an ablation due to her recurrent paroxysms of atrial fibrillation. 3. The patient does have a large pericardial effusion, which is suspected to be a bloody effusion from her recent pacemaker placement. Dr. Hernandez was contacted yesterday and did agree to see the patient on of this week for consideration of the pericardial window due to this effusion. Will initiate transfer to [facility] for consideration of the pericardial window due to her large pericardial effusion which is most likely from her permanent pacemaker placement. 4. CT of the chest does show a moderate pericardial effusion with a hematoma around the pacemaker site. This confirms that the pericardial effusion is most likely a bloody effusion. Will continue to hold her Xarelto at this time. 5. Coronary artery disease is present. She denies any chest pain or pressure. No plans for invasive left cardiac catheterization at this time. 6. Her blood pressure is well-controlled. 7. Her LDL goal is less than 55. She is on a statin. 8. Further recommendations will be made pending the patient's response to treatment. She is currently awaiting transfer to [facility] for consideration of a pericardial window. She will also likely need to be considered for an ablation. Thank you for the opportunity to help participate in the care of this patient. All recommendations and orders are per Dr. Laguerre.
[2024-12-14 12:11] LABS: Troponin I 0.03 ng/ml (0.00-0.034)
[2024-12-14 12:28] LABS: Reflex Lactic Add Lactic Reflex
--- NOTE | 2024-12-14 13:28 | PC.NURSE ---
Dr. Douglas stated the patient has been accepted to by in cardiology. SANTY Hyde notified at this time. Dr. Douglas also gave verbal order for regular diet and lunch tray. Dietary called and order placed as well
--- NOTE | 2024-12-14 13:45 | PC.NURSE ---
Per SANTY Hyde pt is to remain on the diltiazem drip as long as pt tolerates it and to inform the hospitalist if it needs to be stopped.
--- NOTE | 2024-12-14 14:05 | PC.NURSE ---
SANTY Castro at bedside to reassess pt. She was notified of pt hypotension and instructed to decrease the diltiazem to 5mg/hr but to keep the patient on the drip as long as her blood pressure tolerates it.
[2024-12-14 15:46] LABS: Troponin I 0.03 ng/ml (0.00-0.034)
[2024-12-14] MEDS: DOFETILIDE 250 MCG 250 EACH PO (20:02)
[2024-12-14] MEDS: ATORVASTATIN 40MG TABLET 40 MG PO (20:02)
[2024-12-14] MEDS: PANTOPRAZOLE 40MG TABLET 40 MG PO (20:02)
[2024-12-14] MEDS: LORATADINE 10MG TABLET 5 MG PO (20:02)
[2024-12-15] VITALS: PULSE 70
[2024-12-15 00:01] VITALS: BP 98/52; PULSE 71; RESP 14; TEMP 37; O2SAT 96
[2024-12-15 02:00] VITALS: BP 107/48; PULSE 70; RESP 11; O2SAT 95
--- NOTE | 2024-12-15 03:30 | PC.NURSE ---
Rec. order efren [place] aprn to hold drip due to patients hypotension
[2024-12-15 04:00] VITALS: BP 116/61; PULSE 70; PULSE 73; RESP 11; TEMP 36.9; O2SAT 96; BMI 23.1
[2024-12-15 06:02] VITALS: BP 113/46; PULSE 70; RESP 17; O2SAT 96
[2024-12-15 06:09] LABS: Hematocrit 38.4 % (37.0-47.0); Hemoglobin 12.4 g/dL (12.2-16.2); Immature Granulocytes % 0.3 %; Mean Corpuscular HGB Conc 32.3 g/dL (31.8-35.4); Mean Corpuscular Hemoglobin 30.8 pg (27.0-31.2); Mean Corpuscular Volume 95.3 fl (81-99); Nucleated Red Blood Cells % 0 %; Platelet Count 323 K/mm3 (142-424); Red Blood Count 4.03 M/mm3 (4.20-5.40); Red Cell Distribution Width-SD 50.9 fL; White Blood Count 6.9 K/mm3 (4.8-10.8)
[2024-12-15 06:28] LABS: Alanine Aminotransferase 27 U/L (12-78); Albumin Level 3.8 g/dl (3.5-5.0); Albumin/Globulin Ratio 1.6 (1.1-1.8); Alkaline Phosphatase 55 U/L (38-126); Anion Gap 6.8 mEq/L (5-15); Aspartate Amino Transferase 43 U/L (14-36); Bilirubin,Total 1.0 mg/dl (0.2-1.3); Blood Urea Nitrogen 14 mg/dl (7-17); Calcium 8.7 mg/dl (8.4-10.2); Carbon Dioxide 27 mmol/L (22.0-30.0); Chloride 106 mmol/L (98-107); Creatinine Clearance Estimated 44 mL/min (50-200); Creatinine,Serum 0.80 mg/dl (0.52-1.04); Estimated Glomerular Filt Rate 69 ml/min (>60); GFR (African American) 83 ML/MIN (>60); Globulin 2.4 g/dL (1.3-3.2); Glucose 95 mg/dl (74-100); Magnesium 1.8 mg/dl (1.6-2.3); Potassium 3.8 mmoL/L (3.5-5.1); Sodium 136 mmol/L (136-145); Total Protein,Serum 6.2 g/dl (6.3-8.2)
[2024-12-15 08:00] VITALS: BP 128/57; PULSE 70; RESP 14; TEMP 36.8; O2SAT 97
[2024-12-15] MEDS: MAGNESIUM OXIDE 400MG TABLET 400 MG PO (08:11)
[2024-12-15] MEDS: METOPROLOL SUCCINATE XL 50MG TABLET 50 MG PO (08:11)
[2024-12-15] MEDS: CHOLECALCIFEROL 1,000 UNITS (25MCG) TABLET 25 MCG PO (08:11)
[2024-12-15] MEDS: DOFETILIDE 250 MCG 250 EACH PO (08:12)
--- NOTE | 2024-12-15 08:32 | P.DS_ITS ---
<Statement entered by Koffi Cook MD - 12/15/24 10:50> Personally evaluated patient and agree with the plan of care as outlined by the EDI PROGRAMMER. General Admission date:: 12/14/24 Discharge date: 12/15/24 HPI HPI HPI: Ms. Manning is a 84-year-old female who presented to the emergency department today due to increased heart rate and known pericardial effusion. She was seen yesterday in the cardiology office and was found to have a acute pericardial effusion likely from pacemaker placement and anticoagulation. She has a primary medical history of paroxysmal A-fib with RVR, pacemaker placement, hypertension, hyperlipidemia, CAD, GERD. She was seen yesterday in the cardiology office and had an echo which revealed a moderate pericardial effusion. After discussion with cardiology and [facility] it was felt the patient may need a pericardial window procedure. Dr. Douglas spoke with Dr. Hernandez who stated he would see the patient on and that she needed a stat Noncon CT. Patient was contacted to come in today for CT but stated her heart rate had significantly increased and she was short of breath, she presented to the emergency department where workup revealed she was in A-fib RVR, rate 130s. Patient was given 5 mg Lopressor IV and initiated on diltiazem drip. Cardiology was consulted from the emergency department who recommend admission. Hospital Course Hospital Course Hospital Course: Ms. Manning is a 84-year-old female who presented to the emergency department yesterday due to increased heart rate and known pericardial effusion. She was seen in the cardiology office and was found to have a acute pericardial effusion likely from pacemaker placement with concurrent anticoagulation. She has a primary medical history of paroxysmal A-fib with RVR, pacemaker placement, hypertension, hyperlipidemia, CAD, GERD. Echo revealed a moderate pericardial effusion increased in size from previous report. After discussion with cardiology and [facility] it was felt the patient may need a pericardial window procedure. Dr. Douglas spoke with Dr. Hernandez who stated he would see the patient on and that she needed a stat Chest CT. Patient was contacted to come in for CT but stated her heart rate had significantly increased and she was short of breath, she presented to the emergency department where workup revealed she was in A-fib RVR, rate 130s. Patient was given 5 mg Lopressor IV and initiated on diltiazem drip. Cardiology was consulted from the emergency department who recommend admission. Cardiology recommended admission and probable transfer to for pericardial window procedure with Dr. Hernandez, hospital medicine consulted and agreeable to admission. Plan of care was as follows: #Acute pericardial effusion #Atrial fibrillation with RVR/paroxysmal A-fib #Status post cardiac pacemaker procedure ? Patient had echocardiogram on Thursday, 12/13 which revealed a moderate-sized, anterior pericardial effusion present. Pocket measuring 1.5 cm. Pericardial effusion is heterogeneous in appearance, likely hemorrhagic, and is at least partially lobulated. Compared to the prior study the size of the pericardial effusion is now larger. ? Recommendations by cardiology yesterday were for the patient to have chest CT done in outpatient setting and follow-up with Dr. Hernandez at for possible procedure on . Patient began having increased heart rate and shortness of breath this morning and came to the emergency department where she was found to be in A-fib RVR. Patient has failed multiple outpatient therapies, amiodarone, sotalol, diltiazem. After pacemaker placement she was placed on Tikosyn and metoprolol for rhythm and rate control. Patient was given metoprolol 5 milligram IV and started on a diltiazem drip in the emergency department. Patient converted to a atrial pacing rhythm, heart rate in the 70s on the diltiazem drip. She has maintained this rhythm throughout the night without any complications. ? [facility] called this morning and states that patient has a bed, patient agreeable for transfer to for pericardial window procedure with Dr. Hernandez. ? Patient's home meds restarted, metoprolol 50 mg daily Tikosyn 250 mcg twice daily, per cardiology's recommendation. ? Due to hemorrhagic pericardial effusion we will be holding Xarelto 20 mg daily at this time. ? Lab work remained stable this morning, no electrolyte abnormalities, normal kidney function, no anemia noted. #CAD: Continue atorvastatin 40 mg at discharge. #GERD: Continue omeprazole 20 mg daily at discharge. Total time spent on discharge 32 minutes in counseling, documentation, chart review, and direct care with patient. Exam Data for Last 24 hours Vital signs and Labs for Last 24 Hours: Temp Pulse Resp BP Pulse Ox O2 Del Method 98.4 F 70 17 113/46 L 96 Room Air 12/15/24 04:00 12/15/24 06:02 12/15/24 06:02 12/15/24 06:02 12/15/24 06:02 12/15/24 06:44 Laboratory Results - last 24 hr 12/14/24 08:17: PT 12.5, INR 1.14 H, APTT 29.3, Sodium 138, Potassium 3.6, Chloride 105, Carbon Dioxide 25, Anion Gap 11.6, BUN 13, Creatinine 0.80, Estimated Creat Clear 47, Estimated GFR 69, Est GFR ( Amer) 83, Glucose 116 H, Calcium 9.8, Magnesium 1.8, Total Bilirubin 1.3, AST 48 H, ALT 36, Alkaline Phosphatase 63, Troponin I 0.02, NT-Pro-B Natriuret Pep 1030 H, Total Protein 7.3, Albumin 4.5, Globulin 2.8, Albumin/Globulin Ratio 1.6 12/14/24 11:33: Troponin I 0.03 12/14/24 14:47: Troponin I 0.03 12/15/24 05:30: WBC 6.9, RBC 4.03 L, Hgb 12.4, Hct 38.4, MCV 95.3, MCH 30.8, MCHC 32.3, RDW 14.6, Plt Count 323, MPV 10.8 H, Neut % (Auto) 62.6, Lymph % (Auto) 25.8, [place] % (Auto) 7.2, Eos % (Auto) 3.5, Baso % (Auto) 0.6, Neut # (Auto) 4.3, Lymph # (Auto) 1.8, [place] # (Auto) 0.5, Eos # (Auto) 0.2, Baso # (Auto) 0.0, Sodium 136, Potassium 3.8, Chloride 106, Carbon Dioxide 27, Anion Gap 6.8, BUN 14, Creatinine 0.80, Estimated Creat Clear 44, Estimated GFR 69, Est GFR ( Amer) 83, Glucose 95, Calcium 8.7, Magnesium 1.8, Total Bilirubin 1.0, AST 43 H, ALT 27, Alkaline Phosphatase 55, Total Protein 6.2 L, Albumin 3.8 D, Globulin 2.4, Albumin/Globulin Ratio 1.6 Temp Pulse Resp BP Pulse Ox O2 Del Method 98.1 F 108 H 20 128/68 97 Room Air 12/14/24 10:04 12/14/24 10:18 12/14/24 10:04 12/14/24 10:04 12/14/24 09:07 12/14/24 10:04 Laboratory Results - last 24 hr 12/14/24 08:17: WBC 7.8, RBC 4.46, Hgb 13.7, Hct 41.5, MCV 93.0, MCH 30.7, MCHC 33.0, RDW 14.6, Plt Count 387, MPV 10.6 H, Neut % (Auto) 64.5, Lymph % (Auto) 24.9, [place] % (Auto) 7.0, Eos % (Auto) 2.4, Baso % (Auto) 0.9, Neut # (Auto) 5.0, Lymph # (Auto) 1.9, [place] # (Auto) 0.5, Eos # (Auto) 0.2, Baso # (Auto) 0.1, PT 12.5, INR 1.14 H, APTT 29.3, VBG pH 7.48 H, VBG pCO2 32.3 L, VBG pO2 132.3 H, VBG HCO3 23.6, VBG Total CO2 24.6, VBG O2 Saturation 98.9 H, VBG Base Excess 0.2, VBG Lactic Acid 2.3 H, Sodium 138, Potassium 3.6, Chloride 105, Carbon Dioxide 25, Anion Gap 11.6, BUN 13, Creatinine 0.80, Estimated Creat Clear 47, Estimated GFR 69, Est GFR ( Amer) 83, Glucose 116 H, Calcium 9.8, Magnesium 1.8, Total Bilirubin 1.3, AST 48 H, ALT 36, Alkaline Phosphatase 63, Troponin I 0.02, NT-Pro-B Natriuret Pep 1030 H, Total Protein 7.3, Albumin 4.5, Globulin 2.8, Albumin/Globulin Ratio 1.6 I & O for Last 24 hours: Intake & Output 12/12/24 12/13/24 12/14/24 12/15/24 23:59 23:59 23:59 23:59 Intake Total 337.417 / 337.417 62.583 / 62.583 Output Total 0 / 0 200 / 200 Balance 337.417 / 337.417 -137.417 / -137.417 Weight 63.219 kg 63.548 kg Intake & Output 12/11/24 12/12/24 12/13/24 12/14/24 23:59 23:59 23:59 23:59 Intake Total 3.75 / 3.75 Balance 3.75 / 3.75 Weight 139 lb 6 oz Constitutional Constitutional: no acute distress, average body habitus and cooperative *Routine HEENT Exam Head: Present normocephalic and atraumatic ENT: Present mucous membranes moist *Routine Neck Exam Neck: Present supple, full ROM and normal carotid upstroke; Absent JVD or carotid bruit Routine Chest/Breast/Axilla Exam Chest wall: Present pacemaker (Hematoma at pacemaker site) *Routine Respiratory Exam Respiratory: Present CTA bilaterally, normal respiratory effort, able to speak in complete sentences and symmetric chest movement *Routine Cardiovascular Exam Cardiovascular: Present RRR, Normal S1 and Normal S2; Absent murmur or gallop *Routine Abdominal Exam Abdominal: Present soft and normoactive bowel sounds; Absent tenderness, d istended or organomegaly *Routine Extremities Exam Extremities: Present full ROM, pulses intact and normal capillary refill; Absent cyanosis, clubbing or edema *Routine Skin Exam Skin: Present intact and warm; Absent erythema *Routine Neurological Exam Neurological: Present alert, oriented X3 and CN II-XII intact; Absent sensory deficit or motor deficit Routine Psychiatric Exam Psychiatric: Present normal affect Results Data Completed and Pending Labs on day of discharge: Labs from last 24 hours 12/15/24 12/14/24 12/14/24 05:30 14:47 11:33 WBC 6.9 RBC 4.03 L Hgb 12.4 Hct 38.4 MCV 95.3 MCH 30.8 MCHC 32.3 RDW 14.6 Plt Count 323 MPV 10.8 H Neut % (Auto) 62.6 Lymph % (Auto) 25.8 [place] % (Auto) 7.2 Eos % (Auto) 3.5 Baso % (Auto) 0.6 Neut # (Auto) 4.3 Lymph # (Auto) 1.8 [place] # (Auto) 0.5 Eos # (Auto) 0.2 Baso # (Auto) 0.0 PT INR APTT Sodium 136 Potassium 3.8 Chloride 106 Carbon Dioxide 27 Anion Gap 6.8 BUN 14 Creatinine 0.80 Estimated Creat Clear 44 Estimated GFR 69 Est GFR ( Amer) 83 Glucose 95 Calcium 8.7 Magnesium 1.8 Total Bilirubin 1.0 AST 43 H ALT 27 Alkaline Phosphatase 55 Troponin I 0.03 0.03 NT-Pro-B Natriuret Pep Total Protein 6.2 L Albumin 3.8 D Globulin 2.4 Albumin/Globulin Ratio 1.6 12/14/24 08:17 WBC RBC Hgb Hct MCV MCH MCHC RDW Plt Count MPV Neut % (Auto) Lymph % (Auto) [place] % (Auto) Eos % (Auto) Baso % (Auto) Neut # (Auto) Lymph # (Auto) [place] # (Auto) Eos # (Auto) Baso # (Auto) PT 12.5 INR 1.14 H APTT 29.3 Sodium 138 Potassium 3.6 Chloride 105 Carbon Dioxide 25 Anion Gap 11.6 BUN 13 Creatinine 0.80 Estimated Creat Clear 47 Estimated GFR 69 Est GFR ( Amer) 83 Glucose 116 H Calcium 9.8 Magnesium 1.8 Total Bilirubin 1.3 AST 48 H ALT 36 Alkaline Phosphatase 63 Troponin I 0.02 NT-Pro-B Natriuret Pep 1030 H Total Protein 7.3 Albumin 4.5 Globulin 2.8 Albumin/Globulin Ratio 1.6 DS: Diagnosis Discharge Diagnosis (1) Acute pericardial effusion: Status: Acute Code(s): I30.9 - Acute pericarditis, unspecified (2) Atrial fibrillation with rapid ventricular response: Status: Acute Code(s): I48.91 - Unspecified atrial fibrillation (3) Status post cardiac pacemaker procedure: Status: Acute Code(s): Z95.0 - Presence of cardiac pacemaker (4) Paroxysmal A-fib: Status: Acute Code(s): I48.0 - Paroxysmal atrial fibrillation (5) Hypertension: Status: Acute Code(s): I10 - Essential (primary) hypertension Qualifiers: Hypertension type: primary hypertension Qualified Code(s): I10 - Essential (primary) hypertension (6) HLD (hyperlipidemia): Status: Chronic Code(s): E78.5 - Hyperlipidemia, unspecified Qualifiers: Hyperlipidemia type: mixed hyperlipidemia Qualified Code(s): E78.2 - Mixed hyperlipidemia (7) CAD (coronary artery disease): Status: Chronic Code(s): I25.10 - Atherosclerotic heart disease of [place] coronary artery without angina pectoris Qualifiers: Coronary Disease-Associated Artery/Lesion type: [place] artery [place] vs. transplanted heart: [place] heart Associated angina: without angina Qualified Code(s): I25.10 - Atherosclerotic heart disease of [place] coronary artery without angina pectoris (8) GERD (gastroesophageal reflux disease): Status: Acute Code(s): K21.9 - Gastro-esophageal reflux disease without esophagitis Qualifiers: Esophagitis presence: with esophagitis Esophagitis bleeding: without hemorrhage Qualified Code(s): K21.00 - Gastro-esophageal reflux disease with esophagitis, without bleeding Meds Home Medications and Allergies Home Medications ?Medication ?Instructions ?Recorded ?Confirmed ?Type omeprazole 20 mg tablet,delayed 20 mg PO DAILY 0 12/14/24 History release cholecalciferol (vitamin D3) 25 25 mcg PO DAILY 12/14/24 History mcg (1,000 unit) capsule cetirizine 10 mg tablet (Zyrtec) 5 mg PO HS 02/04/24 0 12/14/24 History atorvastatin 40 mg tablet 40 mg PO HS #90 tabs 5 12/14/24 Rx rivaroxaban 20 mg tablet (Xarelto) 20 mg PO QPMWITHMEA L 11/28/24 12/14/24 History Held on 12/15/24. Instructions: until f/u with cards dofetilide 250 mcg capsule 250 mcg PO BID 30 days #60 caps 12/01/24 12/14/24 Rx (Tikosyn) magnesium oxide 500 mg capsule 500 mg PO DAILY #30 cap s 12/06/24 12/14/24 Rx metoprolol succinate 50 mg 50 mg PO DAILY #30 tabs 05/3112/14/24 Rx tablet,extended release 24 hr (Toprol XL) New Prescriptions to Start Prescriptions: Allergies Allergy/AdvReac Type Severity Reaction Status Date / Time amoxicillin Allergy Severe Unknown Verified 12/13/24 11:24 allergy reaction metronidazole (From Flagyl) Allergy Severe Unknown Verified 12/13/24 11:24 allergy reaction protectives, O.U. (From Allergy Severe Unknown Verified 12/13/24 11:24 Sensi-Care (foam)) allergy reaction Penicillins Allergy Intermediate EDEMA Verified 12/13/24 11:24 apixaban (From Eliquis) Allergy Mild Rash Verified 12/13/24 11:24 Sulfa (Sulfonamide Allergy Unknown Unknown Verified 12/13/24 11:24 Antibiotics) (SULFA allergy (SULFONAMIDE ANTIBIOTICS)) reaction adhesive tape Allergy Unknown Verified 12/13/24 11:24 allergy reaction amiodarone AdvReac Mild GI UPSET Verified 12/13/24 11:24 acetaminophen AdvReac Nausea Verified 12/13/24 11:24 Discharge Plan Disposition Patient Disposition: Xfer Short-Term Hosp Condition: Fair Discharge Order Discharge Orders: Discharge Order (Routine); Ordered 12/15/24 Ordered By: Koffi Cook Follow up Plan Follow up with: Kathe Sher APRN [Nurse Practitioner, Cardiology] - Enter time for follow up Prescriptions/Medication Reconciliation: Continued cholecalciferol (vitamin D3) 25 mcg (1,000 unit) capsule 25 mcg PO DAILY metoprolol succinate [Toprol XL] 50 mg tablet extended release 24 hr 50 mg PO DAILY Qty: 30 2RF atorvastatin 40 mg tablet 40 mg PO HS Qty: 90 1RF magnesium oxide 500 mg capsule 500 mg PO DAILY Qty: 30 0RF omeprazole 20 MG tablet,delayed release (DR/EC) 20 mg PO DAILY dofetilide [Tikosyn] 250 mcg capsule 250 mcg PO BID 30 Days Qty: 60 0RF cetirizine [Zyrtec] 10 mg Tablet 5 mg PO HS Held Xarelto 20 mg tablet 20 mg PO QPMWITHMEAL Hold Instructions: until f/u with cards Patient Comments: TAKE 1 TABLET BY MOUTH IN THE EVENING WITH A MEAL FOR BLOOD THINNER Problem Reconciliation Problems Reviewed?: Yes Patient Discharge Instructions ACTIVITY: Continue current activity DIET: continue same diet Stand Alone Forms: Transfer Record Patient Instructions: DI for Atrial Fibrillation Print Language: Irish Providers Primary Care Provider: Allen Love Admit Provider: Koffi Cook Attending Provider: Koffi Cook
== END 2024-12-15 08:38 | disposition home or self-care (01) | DRG 315 ==
LOC: ER 08:38 → ICU 09:58
PROVIDERS: Admitting Provider Student in an Organized Health Care Education/Training Program; Emergency Provider Student in an Organized Health Care Education/Training Program; PCP Internal Medicine Adolescent Medicine; Visit Provider Student in an Organized Health Care Education/Training Program
DX: I30.9 Acute pericarditis, unspecified (principal); D68.32 Hemorrhagic disorder due to extrinsic circulating anticoagulants; I31.2 Hemopericardium, not elsewhere classified; L76.32 Postprocedural hematoma of skin and subcutaneous tissue following other procedure; I97.618 Postprocedural hemorrhage of a circulatory system organ or structure following other circulatory system procedure; I48.0 Paroxysmal atrial fibrillation; I11.9 Hypertensive heart disease without heart failure; I25.10 Atherosclerotic heart disease of native coronary artery without angina pectoris; K21.00 Gastro-esophageal reflux disease with esophagitis, without bleeding; E78.2 Mixed hyperlipidemia; T45.515A Adverse effect of anticoagulants, initial encounter; Y83.8 Other surgical procedures as the cause of abnormal reaction of the patient, or of later complication, without mention of misadventure at the time of the procedure; Y71.2 Prosthetic and other implants, materials and accessory cardiovascular devices associated with adverse incidents; I31.39 Other pericardial effusion (noninflammatory); Z95.0 Presence of cardiac pacemaker; Z79.01 Long term (current) use of anticoagulants; Z79.899 Other long term (current) drug therapy; Z88.0 Allergy status to penicillin; Z88.8 Allergy status to other drugs, medicaments and biological substances; Z88.2 Allergy status to sulfonamides; Z91.048 Other nonmedicinal substance allergy status
CPT/HCPCS: 36415; 71275; 80053; 82803; 83735; 83880; 84484; 85025; 85610; 85730; 93005; 99285; Q9967

== ENCOUNTER 2025-01-02 13:38 | Outpatient (CLI) | payer MEDICARE, SELFPAY ==
--- OUTSIDE RECORDS SUMMARY | 2024-12-15 09:59 | XMS_ITS | Encounter Summary ---
Author Organization Healthcare Address [address] [id number] Care Team Providers Care [employer] Name Role Phone Allen Love MD Primary Care Provider + [phone] Reason for Visit * Auth/Cert (Routine) Specialty Diagnoses / Procedures Referred By Contac t Referred To Contact Diagnoses Pericardial effusion Pericardial Effusion Dagoberto Hernandez MD [address] [address] Phone: tel: fax: [facility] [address] [place] [address] Phone: tel: Referral ID Status Reason Start Date Expiration Date Visits Re quested Visits Authorized [id number] 1 1 Encounter Details Date Type Department Care Team (Latest Contact Info) Description 12/15/2024 9:59 AM EDT - 12/18/2024 3:08 PM EDT Hospital Encounter [facility] [address] [place] [id number] Dagoberto Hernandez MD [address] [address] Pericardial effusion (Primary Dx) Discharge Disposition: Home or Self Care Social History Tobacco Use Types Packs/Day Years Used Date Smoking Tobacco: Never Tobacco Cessation:Counseling Given: Not Answered Humiliation, Afraid, Rape, and Kick questionnair e Answer Date Recorded Within the last year, have y ou been afraid of your partner or ex-partner? No 12/16/2024 Within the last year, have y ou been humiliated or emotionally abused in other ways by your partner or ex-partner? No Within the last year, have y ou been kicked, hit, slapped, or otherwise physically hurt by your partner or ex-partner? No 12/16/2024 Within the last year, have y ou been raped or forced to have any kind of sexual activity by your partner or ex-partner? No 12/16/2024 PRAPARE - Transportation Answer Date Re corded In the past 12 months, has l ack of transportation kept you from medical appointments or from getting medications? No 12/05 In the past 12 months, has l ack of transportation kept you from meetings, work, or from getting things needed for daily living? No 12/16/2024 Housing Stability Vital Sign Answer Justin e Recorded In the last 12 months, was t here a time when you were not able to pay the mortgage or rent on time? No 12/16/2024 In the past 12 months, how m any times have you moved where you were living? 0 12/16/2024 Homeless in the Last Year Not on file 2024 [facility] Utilities Answer Date Recorded In the past 12 months has th e electric, gas, oil, or water company threatened to shut off services in your home? No 12/16/2024 Comments Unknown Sex and Gender Information Value Date Recorded Sex Assigned at Not on file Legal Sex Female 7:38 PM EDT Gender Identity Not on file Sexual Orientation Not on file documented as of this encounter Last Filed Vital Signs Vital Sign Reading Time Taken Comments Blood Pressure 101/60 12/18/2024 2:24 PM EDT Pulse 74 12/18/2024 2:24 PM EDT Temperature 36.5 C (97.7 F) 12/18/2024 11:33 AM EDT Respiratory Rate 18 12/18/2024 2:24 PM EDT Oxygen Saturation 98% 12/18/2024 11:33 AM EDT Inhaled Oxygen Concentration - - Weight 71.7 kg (158 lb 1.1 oz) 12/18/2024 3:58 A M EDT Height 165.1 cm (5' 5 ) 12/15/2024 10:31 AM EDT Body Mass Index 26.3 12/15/2024 10:31 AM EDT documented in this encounter Functional Status * Calculated C-SSRS Risk Score (Lifetime/Recent) Answer Date of Assessment Author No Risk Indicated 12/18/2024 8:00 AM EDT Shine Cantu RN * Question Answer Date of Assessment Author 1. Wish to be (Past 1 Month) No 025 8:00 AM EDT Shine Cantu RN 2. Non-Specific Active Suici babs Thoughts (Past 1 Month) No 12/18/2024 8:00 AM EDT Tung Cantu RN 6. Suicidal Behavior (Lifetime) No 8:00 AM EDT Shine Cantu RN documented as of this encounter Medications at Time of Discharge atorvastatin (Lipitor) 40 MG tablet TAKE 1 TABLET BY MOUTH AT BEDTIME FOR CHOLESTEROL 01/21/2022 cetirizine (ZyrTEC) 10 MG tablet Take 1 tablet by mouth daily. cholecalciferol (Vitamin D3) 25 MCG (1000 UT) tablet Take 1 tablet by mouth daily. dofetilide (Tikosyn) 250 MCG capsule Take 1 capsule by mouth 2 times a day. 12/01/2024 metoprolol tartrate (Lopressor) 25 MG tablet Take 1 tablet by mouth every 8 hours. May take an extra tablet PRN recurrent afib 90 tablet 12/18/2024 NON FORMULARY Take 500 mg by mouth daily. Magnesium OTC omeprazole (PriLOSEC) [address] capsule Take 1 capsule by mouth daily. 12/25/2021 ondansetron ODT (Zofran-ODT) 4 MG disintegrating tablet Dissolve 1 tablet on the tongue every 8 hours as needed for vomiting or nausea. 11/24/2024 rivaroxaban (Xarelto) 20 MG tablet Take 1 tablet by mouth daily. documented as of this encounter Miscellaneous Notes * Discharge Summary - Socrates Hoover PA - 12/18/2024 2:22 PM EDT Hospitalization Admit Date/Time: 12/15/2024 9:59 AM Admitting Attending: Dagoberto Hernandez Discharge Date: 12-18-24 Discharge Attending Physician: Dagoberto Hernandez MD PCP name and Address: Allen Love MD [address] [facility] / [place] [address] Referring provider name and address: Tegan Rhodes [address] [place] [address] [place] [id number] Chief Concern, Brief History of Present Illness, and Hospital Course Hazel Manning is a 84 y.o. female who was referred to us in consultation by Dr. Douglas in [place] secondary to a pericardial effusion. 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 She developed a hematoma following the procedure as well as a pleural effusion which reportedly improved. So she was put back on anticoagulation and discharged home. She came back to the hospital ~ 10 days later with recurrent symptomatic atrial fibrillation. She was put on Tikosyn therapy at that time. Her pericardial effusion was again noted and she was scheduled to see Dr. Hernandez as an outpatient. Unfortunately, she returned to the hospital in [place] with symptomatic A-fib. She was given IV metoprolol and placed on a diltiazem gtt and converted to an atrially paced rhythm. She had a CT scan as well as an echocardiogram and her effusion was noted to bemoderate but without cardiac tamponade. She was transferred for possible pericardial window. Surgeries and Procedures 1. Pericardiocentesis 12-16-24 Medication List PAUSE taking these medications rivaroxaban 20 MG tablet Wait to take this until: December 19, 2024 Evening Commonly known as: Xarelto Take 1 tablet by mouth daily. .. atorvastatin 40 MG tablet Commonly known as: Lipitor TAKE 1 TABLET BY MOUTH AT BEDTIME FOR CHOLESTEROL cetirizine 10 MG tablet Commonly known as: ZyrTEC Take 1 tablet by mouth daily. cholecalciferol 25 MCG (1000 UT) tablet Commonly known as: Vitamin D3 Take 1 tablet by mouth daily. dofetilide 250 MCG capsule Commonly known as: Tikosyn Take 1 capsule by mouth 2 times a day. metoprolol tartrate 25 MG tablet Commonly known as: Lopressor Take 1 tablet by mouth every 8 hours. May take an extra tablet PRN recurrent afib NON FORMULARY Take 500 mg by mouth daily. Magnesium OTC omeprazole [address] capsule Commonly known as: PriLOSEC Take 1 capsule by mouth daily. . ondansetron ODT 4 MG disintegrating tablet Commonly known as: Zofran-ODT Dissolve 1 tablet on the tongue every 8 hours as needed for vomiting or nausea. Where to Get Your Medications These medications were sent to [facility] - [place], [place] - [address], [facility] [id number] metoprolol tartrate 25 MG tablet Discharge Diagnosis Pericardial Effusion - moderate with no evidence of tamponade - hemopericardium suspected in light of anticoagulation - CT and Echo films in imaging - Films reviewed with Dr. Hernandez - Interventional Cardiology has reviewed images and plan for pericardiocentesis - 12/16 pericardiocentesis removed 170 ml, drain removed - 12/17 follow up ECHO pending Paroxysmal A-fib Tachy-carlos syndrome Chronic anticoagulation therapy - symptomatic - s/p PPM 11/22/2024 - Tikosyn initiated 12/01, will continue - Last dose of Xarelto 12/12, continue to hold for now - continue PO metoprolol for rate control - can restart diltiazem gtt as needed - Restart Xarelto at time of discharge - 12/17: changed Metoprolol to 25 mg tid for recurrent afib HTN - continue metoprolol - monitor HLD - continue statin GERD - continue PPI Anxiety - monitor and treat as needed Outpatient Follow-Up Follow up with Dr. Douglas Test Results Pending At Discharge none Pertinent Physical Exam At Time of Discharge Visit Vitals BP 101/60 (BP Location: Right arm, Patient Position: Sitting) Pulse 74 Temp 36.5 ??C (97.7 ??F) (Oral) Resp 18 Ht 1.651 m (5' 5 ) Wt 71.7 kg (158 lb 1.1 oz) SpO2 98% BMI 26.30 kg/m?? Smoking Status Never BSA 1.81 m?? Physical Exam Constitutional: Appearance: Normal appearance. Eyes: Extraocular Movements: Extraocular movements intact. Pupils: Pupils are equal, round, and reactive to light. Cardiovascular: Rate and Rhythm: Normal rate. Pulses: Normal pulses. Pulmonary: Effort: No respiratory distress. Skin: General: Skin is warm and dry. Neurological: General: No focal deficit present. Mental Status: She is alert and oriented to person, place, and time. Results from last 7 days Lab Units 12/17/24 0425 WBC 10*3/uL 6.60 HEMOGLOBIN g/dL 12.1 HEMATOCRIT % 36.5 PLATELETS 10*3/uL 300 Results from last 7 days Lab Units 12/17/24 0425 SODIUM mmol/L 139 POTASSIUM mmol/L 4.0 CHLORIDE mmol/L 105 CO2 mmol/L 21* BUN mg/dL 18 CREATININE mg/dL 0.78 EGFR mL/min/1.73m*2 75.9 GLUCOSE mg/dL 96 CALCIUM mg/dL 8.1* Discharge Disposition/Condition Disposition: Home Condition: Stable (s/sx potential problems absent or manageable) I spent >30 minutes of patient care and instruction time in preparation for this discharge. Cosigned by Dagoberto Hernandez MD at 12/20/2024 4:15 PM EDT Associated attestation - Dagoberto Hernandez MD - 12/20/2024 4:15 PM EDT The patient was seen only by Advanced Practice Provider (ALTHEA), and care was reviewed with me. * Care Plan - Shine Cantu RN - 12/18/2024 12:17 PM EDT Problem: Adult Inpatient Plan of Care Goal: Plan of Care Review Outcome: Ongoing, Progressing Flowsheets (Taken 12/17/2024 1322 by Claudia Spicer, RN) Progress: improving Plan of Care Reviewed With: patient family Goal: Patient-Specific Goal (Individualized) Outcome: Ongoing, Progressing Flowsheets (Taken 12/18/2024 0800) Patient/Family-Specific Goals (Include Timeframe): pt will reain free of A-fib episodes during shift Individualized Care Needs: TELE monitoring Anxieties, Fears or Concerns: none stated Goal: Absence of Hospital-Acquired Illness or Injury Outcome: Ongoing, Progressing Intervention: Identify and Manage Fall Risk Flowsheets (Taken 12/18/2024 1200) Safety Promotion/Fall Prevention: activity supervised lighting adjusted fall prevention program maintained clutter-free environment maintained Intervention: Prevent Skin Injury Flowsheets Taken 12/18/2024 0800 by Shine Cantu RN Body Position: weight shifting Taken 12/17/2024 0900 by Claudia Spicer RN Skin Protection: transparent dressing maintained pulse oximeter probe site changed protective footwear used Intervention: Prevent and Manage VTE (Venous Thromboembolism) Risk Flowsheets (Taken 12/18/2024 1200) VTE Prevention/Management: bilateral SCDs (sequential compression devices) off other (see comments) Intervention: Prevent Infection Flowsheets (Taken 12/17/2024 1322 by Claudia Spicer RN) Infection Prevention: environmental surveillance performed hand hygiene promoted single patient room provided rest/sleep promoted Goal: Optimal Comfort and Wellbeing Outcome: Ongoing, Progressing Intervention: Monitor Pain and Promote Comfort Flowsheets (Taken 12/17/2024 132 by Claudia Spicer RN) Pain Management Interventions: pillow support provided quiet environment facilitated relaxation techniques promoted position adjusted rest Intervention: Provide Person-Centered Care Flowsheets (Taken 12/17/2024 132 by Claudia Spicer RN) Trust Relationship/Rapport: care explained questions encouraged questions answered Problem: Cardiac Output Decreased Goal: Effective Cardiac Output Outcome: Ongoing, Progressing Intervention: Optimize Cardiac Output Flowsheets Taken 12/18/2024 1200 by Shine Cantu RN VTE Prevention/Management: bilateral SCDs (sequential compression devices) off other (see comments) Head of Bed (HOB) Positioning: HOB elevated Taken 12/17/2024 1322 by Claudia Spicer RN Stabilization Measures: legs elevated Environmental Support: calm environment promoted environmental consistency promoted caregiver consistency promoted comfort object encouraged Problem: Surgery Nonspecified Goal: Absence of Infection Signs and Symptoms Outcome: Ongoing, Progressing Intervention: Prevent or Manage Infection Flowsheets Taken 12/18/2024 1200 by Shine Cantu RN Isolation Precautions: protective precautions maintained Taken 12/17/2024 132 by Claudia Spicer RN Infection Management: aseptic technique maintained Fever Reduction/Comfort Measures: lightweight bedding lightweight clothing Goal: Absence of Bleeding Outcome: Ongoing, Progressing Intervention: Monitor and Manage Bleeding Flowsheets (Taken 12/17/2024 132 by Claudia Spicer RN) Bleeding Management: dressing monitored Goal: Effective Bowel Elimination Outcome: Ongoing, Progressing Intervention: Enhance Bowel Motility and Elimination Flowsheets (Taken 12/17/2024 1322 by Claudia Spicer RN) Bowel Elimination Management: relaxation techniques promoted hygiene measures promoted Bowel Motility Enhancement: ambulation promoted Goal: Fluid and Electrolyte Balance Outcome: Ongoing, Progressing Intervention: Monitor and Manage Fluid and Electrolyte Balance Flowsheets (Taken 12/17/2024 1322 by Claudia Spicer RN) Fluid/Electrolyte Management: fluids adjusted Goal: Blood Glucose Level Within Target Range Outcome: Ongoing, Progressing Goal: Anesthesia/Sedation Recovery Outcome: Ongoing, Progressing Intervention: Optimize Anesthesia Recovery Flowsheets Taken 12/18/2024 1200 by Shine Cantu RN Safety Promotion/Fall Prevention: activity supervised lighting adjusted fall prevention program maintained clutter-free environment maintained Taken 12/17/2024 1322 by Claudia Spicer RN Stabilization Measures: legs elevated Goal: Optimal Pain Control and Function Outcome: Ongoing, Progressing Intervention: Prevent or Manage Pain Flowsheets (Taken 12/17/2024 1322 by Claudia Spicer RN) Pain Management Interventions: pillow support provided quiet environment facilitated relaxation techniques promoted position adjusted rest Diversional Activities: television smartphone Goal: Nausea and Vomiting Relief Outcome: Ongoing, Progressing Intervention: Prevent or Manage Nausea and Vomiting Flowsheets (Taken 12/17/2024 1322 by Claudia Spicer RN) Nausea/Vomiting Interventions: slow deep breathing encouraged Goal: Effective Urinary Elimination Outcome: Ongoing, Progressing Intervention: Monitor and Manage Urinary Retention Flowsheets (Taken 12/17/2024 1322 by Claudia Spicer RN) Urinary Elimination Promotion: frequent voiding encouraged positioned for ease of voiding toileting offered Goal: Effective Oxygenation and Ventilation Outcome: Ongoing, Progressing Intervention: Optimize Oxygenation and Ventilation Flowsheets Taken 12/18/2024 1200 by Shine Cantu RN Activity Management: activity adjusted per tolerance up ad jennifer Head of Bed (HOB) Positioning: HOB elevated Cough And Deep Breathing: done with encouragement Taken 12/17/2024 1322 by Claudia Spicer RN Airway/Ventilation Management: airway patency maintained calming measures promoted position adjusted Problem: Oral Intake Inadequate Goal: Improved Oral Intake Outcome: Ongoing, Progressing Intervention: Promote and Optimize Oral Intake Flowsheets (Taken 12/16/2024 1920 by Dre Barbosa, ANGEL) Oral Nutrition Promotion: rest periods promoted calorie-dense foods provided Nutrition Interventions: diet liberalized Problem: Fall Injury Risk Goal: Absence of Fall and Fall-Related Injury Outcome: Ongoing, Progressing Intervention: Identify and Manage Contributors Flowsheets (Taken 12/17/2024 1322 by Claudia Spicer, ANGEL) Medication Review/Management: medications reviewed Self-Care Promotion: independence encouraged BADL personal objects within reach adaptive equipment use encouraged Intervention: Promote Injury-Free Environment Flowsheets (Taken 12/18/2024 1200) Safety Promotion/Fall Prevention: activity supervised lighting adjusted fall prevention program maintained clutter-free environment maintained Problem: Infection Goal: Absence of Infection Signs and Symptoms Outcome: Ongoing, Progressing Intervention: Prevent or Manage Infection Flowsheets Taken 12/18/2024 1200 by Shine Cantu RN Isolation Precautions: protective precautions maintained Taken 12/17/2024 132 by Claudia Spicer RN Infection Management: aseptic technique maintained Fever Reduction/Comfort Measures: lightweight bedding lightweight clothing Problem: Cardiac Rhythm Management Device Goal: Optimal Adjustment to Device Outcome: Ongoing, Progressing Intervention: Optimize Psychosocial Response to Device Implantation Flowsheets (Taken 12/17/2024 1322 by Claudia Spicer RN) Supportive Measures: relaxation techniques promoted self-care encouraged Family/Support System Care: support provided self-care encouraged Goal: Absence of Bleeding Outcome: Ongoing, Progressing Intervention: Monitor and Manage Bleeding Flowsheets (Taken 12/18/2024 0310 by Paul Driscoll RN) Bleeding Precautions: blood pressure closely monitored Goal: Effective Device Function Outcome: Ongoing, Progressing Intervention: Optimize Device Care and Function Flowsheets (Taken 12/18/2024 1211) Pacer Function: capturing Goal: Absence of Infection Signs and Symptoms Outcome: Ongoing, Progressing Intervention: Prevent or Manage Infection Flowsheets (Taken 12/17/2024 1322 by Claudia Spicer RN) Infection Management: aseptic technique maintained Fever Reduction/Comfort Measures: lightweight bedding lightweight clothing Goal: Acceptable Pain Level Outcome: Ongoing, Progressing Intervention: Prevent or Manage Pain Flowsheets (Taken 12/17/2024 1322 by Claudia Spicer RN) Pain Management Interventions: pillow support provided quiet environment facilitated relaxation techniques promoted position adjusted rest Goal: Effective Oxygenation and Ventilation Outcome: Ongoing, Progressing Intervention: Optimize Oxygenation and Ventilation Flowsheets Taken 12/18/2024 1200 by Shine Cantu RN Cough And Deep Breathing: done with encouragement Taken 12/17/2024 1322 by Claudia Spicer RN Airway/Ventilation Management: airway patency maintained calming measures promoted position adjusted Problem: Wound Goal: Optimal Coping Outcome: Ongoing, Progressing Intervention: Support Patient and Family Response Flowsheets (Taken 12/17/2024 1322 by Claudia Spicer RN) Supportive Measures: relaxation techniques promoted self-care encouraged Family/Support System Care: support provided self-care encouraged Goal: Optimal Functional Ability Outcome: Ongoing, Progressing Intervention: Optimize Functional Ability Flowsheets (Taken 12/18/2024 1200) Activity Management: activity adjusted per tolerance up ad jennifer Activity Assistance Provided: independent Goal: Absence of Infection Signs and Symptoms Outcome: Ongoing, Progressing Intervention: Prevent or Manage Infection Flowsheets Taken 12/18/2024 1200 by Shine Cantu RN Isolation Precautions: protective precautions maintained Taken 12/17/2024 1322 by Claudia Spicer RN Infection Management: aseptic technique maintained Fever Reduction/Comfort Measures: lightweight bedding lightweight clothing Goal: Improved Oral Intake Outcome: Ongoing, Progressing Intervention: Promote and Optimize Oral Intake Flowsheets (Taken 12/16/2024 1920 by Dre Barbosa RN) Oral Nutrition Promotion: rest periods promoted calorie-dense foods provided Nutrition Interventions: diet liberalized Goal: Optimal Pain Control and Function Outcome: Ongoing, Progressing Intervention: Prevent or Manage Pain Flowsheets Taken 12/18/2024 1211 by Shine Cantu RN Sleep/Rest Enhancement: natural light exposure provided Taken 12/17/2024 1322 by Claudia Spicer RN Pain Management Interventions: pillow support provided quiet environment facilitated relaxation techniques promoted position adjusted rest Goal: Skin Health and Integrity Outcome: Ongoing, Progressing Intervention: Optimize Skin Protection Flowsheets Taken 12/18/2024 1200 by Shine Cantu RN Activity Management: activity adjusted per tolerance up ad jennifer Taken 12/17/2024 1322 by Claudia Spicer RN Pressure Reduction Techniques: frequent weight shift encouraged Goal: Optimal Wound Healing Outcome: Ongoing, Progressing Intervention: Promote Wound Healing Flowsheets (Taken 12/18/2024 1211) Sleep/Rest Enhancement: natural light exposure provided Problem: Pain Acute Goal: Optimal Pain Control and Function Outcome: Ongoing, Progressing Intervention: Optimize Psychosocial Wellbeing Flowsheets (Taken 12/17/2024 1322 by Claudia Spicer RN) Supportive Measures: relaxation techniques promoted self-care encouraged Diversional Activities: television smartphone Intervention: Develop Pain Management Plan Flowsheets (Taken 12/17/2024 1322 by Claudia Spicer, RN) Pain Management Interventions: pillow support provided quiet environment facilitated relaxation techniques promoted position adjusted rest Intervention: Prevent or Manage Pain Flowsheets (Taken 12/18/2024 1211) Sleep/Rest Enhancement: natural light exposure provided * Care Plan - Paul Driscoll RN - 12/18/2024 3:29 AM EDT Problem: Adult Inpatient Plan of Care Goal: Plan of Care Review Outcome: Ongoing, Progressing Flowsheets (Taken 12/17/2024 1322 by Claudia Spicer, ANGEL) Progress: improving Outcome Evaluation: pt. will understand the plan of care Plan of Care Reviewed With: patient family Goal: Patient-Specific Goal (Individualized) Outcome: Ongoing, Progressing Flowsheets (Taken 12/17/20241999) Patient/Family-Specific Goals (Include Timeframe): Patient to remain free from injury during this shift Individualized Care Needs: Cardiac monitoring and management Anxieties, Fears or Concerns: Hopes to be able to go home in the coming days Goal: Absence of Hospital-Acquired Illness or Injury Outcome: Ongoing, Progressing Intervention: Identify and Manage Fall Risk Flowsheets (Taken 12/17/20241999) Safety Promotion/Fall Prevention: activity supervised assistive device/personal items within reach clutter-free environment maintained fall prevention program maintained lighting adjusted mobility aid in reach nonskid shoes/slippers when out of bed room organization consistent safety round/check completed Intervention: Prevent Skin Injury Flowsheets Taken 12/18/2024 0000 by Mica Joy CNA Body Position: weight shifting Taken 12/17/2024 0900 by Claudia Spicer, RN Skin Protection: transparent dressing maintained pulse oximeter probe site changed protective footwear used Intervention: Prevent and Manage VTE (Venous Thromboembolism) Risk Flowsheets (Taken 12/18/2024 0000) VTE Prevention/Management: SCDs (sequential compression devices) off medication Intervention: Prevent Infection Flowsheets (Taken 12/17/2024 1322 by Claudia Spicer RN) Infection Prevention: environmental surveillance performed hand hygiene promoted single patient room provided rest/sleep promoted Goal: Optimal Comfort and Wellbeing Outcome: Ongoing, Progressing Intervention: Monitor Pain and Promote Comfort Flowsheets (Taken 12/17/2024 1322 by Claudia Spicer RN) Pain Management Interventions: pillow support provided quiet environment facilitated relaxation techniques promoted position adjusted rest Intervention: Provide Person-Centered Care Flowsheets (Taken 12/17/2024 1322 by Claudia Spicer RN) Trust Relationship/Rapport: care explained questions encouraged questions answered Problem: Cardiac Output Decreased Goal: Effective Cardiac Output Outcome: Ongoing, Progressing Intervention: Optimize Cardiac Output Flowsheets Taken 12/18/2024 0000 by Paul Driscoll RN VTE Prevention/Management: SCDs (sequential compression devices) off medication Taken 12/18/2024 0000 by Mica Joy CNA Head of Bed (HOB) Positioning: HOB elevated Taken 12/17/2024 1322 by Claudia Spicer RN Stabilization Measures: legs elevated Environmental Support: calm environment promoted environmental consistency promoted caregiver consistency promoted comfort object encouraged Problem: Surgery Nonspecified Goal: Absence of Infection Signs and Symptoms Outcome: Ongoing, Progressing Intervention: Prevent or Manage Infection Flowsheets Taken 12/17/20241999 by Paul Driscoll RN Isolation Precautions: precautions maintained protective Taken 12/17/2024 1322 by Claudia Spicer RN Infection Management: aseptic technique maintained Fever Reduction/Comfort Measures: lightweight bedding lightweight clothing Goal: Absence of Bleeding Outcome: Ongoing, Progressing Intervention: Monitor and Manage Bleeding Flowsheets (Taken 12/17/2024 1322 by Claudia Spicer RN) Bleeding Management: dressing monitored Goal: Effective Bowel Elimination Outcome: Ongoing, Progressing Intervention: Enhance Bowel Motility and Elimination Flowsheets (Taken 12/17/2024 1322 by Claudia Spicer RN) Bowel Elimination Management: relaxation techniques promoted hygiene measures promoted Bowel Motility Enhancement: ambulation promoted Goal: Fluid and Electrolyte Balance Outcome: Ongoing, Progressing Intervention: Monitor and Manage Fluid and Electrolyte Balance Flowsheets (Taken 12/17/2024 1322 by Claudia Spicer RN) Fluid/Electrolyte Management: fluids adjusted Goal: Blood Glucose Level Within Target Range Outcome: Ongoing, Progressing Goal: Anesthesia/Sedation Recovery Outcome: Ongoing, Progressing Intervention: Optimize Anesthesia Recovery Flowsheets Taken 12/17/20241999 by Paul Driscoll, RN Safety Promotion/Fall Prevention: activity supervised assistive device/personal items within reach clutter-free environment maintained fall prevention program maintained lighting adjusted mobility aid in reach nonskid shoes/slippers when out of bed room organization consistent safety round/check completed Taken 12/17/2024 1322 by Claudia Spicer RN Stabilization Measures: legs elevated Goal: Optimal Pain Control and Function Outcome: Ongoing, Progressing Intervention: Prevent or Manage Pain Flowsheets (Taken 12/17/2024 1322 by Claudia Spicer, RN) Pain Management Interventions: pillow support provided quiet environment facilitated relaxation techniques promoted position adjusted rest Diversional Activities: television smartphone Goal: Nausea and Vomiting Relief Outcome: Ongoing, Progressing Intervention: Prevent or Manage Nausea and Vomiting Flowsheets (Taken 12/17/2024 1322 by Claudia Spicer, RN) Nausea/Vomiting Interventions: slow deep breathing encouraged Goal: Effective Urinary Elimination Outcome: Ongoing, Progressing Goal: Effective Oxygenation and Ventilation Outcome: Ongoing, Progressing Intervention: Optimize Oxygenation and Ventilation Flowsheets Taken 12/18/2024 0000 by Mica Joy CNA Head of Bed (HOB) Positioning: HOB elevated Taken 12/17/20241999 by Paul Driscoll, RN Activity Management: activity adjusted per tolerance Cough And Deep Breathing: done with encouragement Taken 12/17/2024 1322 by Claudia Spicer RN Airway/Ventilation Management: airway patency maintained calming measures promoted position adjusted Problem: Oral Intake Inadequate Goal: Improved Oral Intake Outcome: Ongoing, Progressing Intervention: Promote and Optimize Oral Intake Flowsheets (Taken 12/16/2024 192 by Dre Barbosa, RN) Oral Nutrition Promotion: rest periods promoted calorie-dense foods provided Nutrition Interventions: diet liberalized Problem: Fall Injury Risk Goal: Absence of Fall and Fall-Related Injury Outcome: Ongoing, Progressing Intervention: Identify and Manage Contributors Flowsheets (Taken 12/17/2024 1322 by Claudia Spicer, RN) Medication Review/Management: medications reviewed Self-Care Promotion: independence encouraged BADL personal objects within reach adaptive equipment use encouraged Intervention: Promote Injury-Free Environment Flowsheets (Taken 12/17/20241999) Safety Promotion/Fall Prevention: activity supervised assistive device/personal items within reach clutter-free environment maintained fall prevention program maintained lighting adjusted mobility aid in reach nonskid shoes/slippers when out of bed room organization consistent safety round/check completed Problem: Infection Goal: Absence of Infection Signs and Symptoms Outcome: Ongoing, Progressing Intervention: Prevent or Manage Infection Flowsheets Taken 12/17/20241999 by Paul Driscoll RN Isolation Precautions: precautions maintained protective Taken 12/17/2024 1322 by Claudia Spicer RN Infection Management: aseptic technique maintained Fever Reduction/Comfort Measures: lightweight bedding lightweight clothing Problem: Cardiac Rhythm Management Device Goal: Optimal Adjustment to Device Outcome: Ongoing, Progressing Intervention: Optimize Psychosocial Response to Device Implantation Flowsheets (Taken 12/17/2024 1322 by Claudia Spicer RN) Supportive Measures: relaxation techniques promoted self-care encouraged Family/Support System Care: support provided self-care encouraged Goal: Absence of Bleeding Outcome: Ongoing, Progressing Intervention: Monitor and Manage Bleeding Flowsheets (Taken 12/18/2024 0310) Bleeding Precautions: blood pressure closely monitored Goal: Effective Device Function Outcome: Ongoing, Progressing Intervention: Optimize Device Care and Function Flowsheets (Taken 12/18/2024 0310) Pacer Function: (Occasionally failing to capture) other (see comments) Goal: Absence of Infection Signs and Symptoms Outcome: Ongoing, Progressing Intervention: Prevent or Manage Infection Flowsheets (Taken 12/17/2024 1322 by Claudia Spicer RN) Infection Management: aseptic technique maintained Fever Reduction/Comfort Measures: lightweight bedding lightweight clothing Goal: Acceptable Pain Level Outcome: Ongoing, Progressing Intervention: Prevent or Manage Pain Flowsheets (Taken 12/17/2024 1322 by Claudia Spicer RN) Pain Management Interventions: pillow support provided quiet environment facilitated relaxation techniques promoted position adjusted rest Goal: Effective Oxygenation and Ventilation Outcome: Ongoing, Progressing Intervention: Optimize Oxygenation and Ventilation Flowsheets Taken 12/17/20241999 by Paul Driscoll RN Cough And Deep Breathing: done with encouragement Taken 12/17/2024 1322 by Claudia Spicer RN Airway/Ventilation Management: airway patency maintained calming measures promoted position adjusted Problem: Wound Goal: Optimal Coping Outcome: Ongoing, Progressing Intervention: Support Patient and Family Response Flowsheets (Taken 12/17/2024 1322 by Claudia Spicer RN) Supportive Measures: relaxation techniques promoted self-care encouraged Family/Support System Care: support provided self-care encouraged Goal: Optimal Functional Ability Outcome: Ongoing, Progressing Intervention: Optimize Functional Ability Flowsheets Taken 12/17/20241999 by Paul Driscoll RN Activity Management: activity adjusted per tolerance Taken 12/17/2024 1800 by Claudia Spicer RN Activity Assistance Provided: independent Goal: Absence of Infection Signs and Symptoms Outcome: Ongoing, Progressing Intervention: Prevent or Manage Infection Flowsheets Taken 12/17/20241999 by Paul Driscoll RN Isolation Precautions: precautions maintained protective Taken 12/17/2024 1322 by Claudia Spicer RN Infection Management: aseptic technique maintained Fever Reduction/Comfort Measures: lightweight bedding lightweight clothing Goal: Improved Oral Intake Outcome: Ongoing, Progressing Intervention: Promote and Optimize Oral Intake Flowsheets (Taken 12/16/2024 1920 by Dre Barbosa RN) Oral Nutrition Promotion: rest periods promoted calorie-dense foods provided Nutrition Interventions: diet liberalized Goal: Optimal Pain Control and Function Outcome: Ongoing, Progressing Intervention: Prevent or Manage Pain Flowsheets (Taken 12/17/2024 1322 by Claudia Spicer RN) Pain Management Interventions: pillow support provided quiet environment facilitated relaxation techniques promoted position adjusted rest Sleep/Rest Enhancement: natural light exposure provided relaxation techniques promoted Goal: Skin Health and Integrity Outcome: Ongoing, Progressing Intervention: Optimize Skin Protection Flowsheets Taken 12/18/2024 0000 by Mica Joy CNA Head of Bed (HOB) Positioning: HOB elevated Taken 12/17/20241999 by Paul Driscoll RN Activity Management: activity adjusted per tolerance Taken 12/17/2024 1322 by Claudia Spiecr RN Pressure Reduction Techniques: frequent weight shift encouraged Skin Protection: protective footwear used Goal: Optimal Wound Healing Outcome: Ongoing, Progressing Intervention: Promote Wound Healing Flowsheets (Taken 12/17/2024 1322 by Claudia Spicer RN) Sleep/Rest Enhancement: natural light exposure provided relaxation techniques promoted Problem: Pain Acute Goal: Optimal Pain Control and Function Outcome: Ongoing, Progressing Intervention: Optimize Psychosocial Wellbeing Flowsheets (Taken 12/17/2024 1322 by Claudia Spicer RN) Supportive Measures: relaxation techniques promoted self-care encouraged Diversional Activities: television smartphone Intervention: Develop Pain Management Plan Flowsheets (Taken 12/17/2024 132 by Claudia Spicer, RN) Pain Management Interventions: pillow support provided quiet environment facilitated relaxation techniques promoted position adjusted rest Intervention: Prevent or Manage Pain Flowsheets (Taken 12/17/2024 132 by Claudia Spicer, RN) Sensory Stimulation Regulation: quiet environment promoted lighting decreased care clustered Sleep/Rest Enhancement: natural light exposure provided relaxation techniques promoted Medication Review/Management: medications reviewed * Care Plan - Claudia Spicer RN - 12/17/2024 1:39 PM EDT Problem: Adult Inpatient Plan of Care Goal: Plan of Care Review Outcome: Ongoing, Progressing Flowsheets (Taken 12/17/2024 132) Progress: improving Outcome Evaluation: pt. will understand the plan of care Plan of Care Reviewed With: patient family Goal: Patient-Specific Goal (Individualized) Outcome: Ongoing, Progressing Goal: Absence of Hospital-Acquired Illness or Injury Outcome: Ongoing, Progressing Intervention: Identify and Manage Fall Risk Flowsheets (Taken 12/17/2024 132) Safety Promotion/Fall Prevention: activity supervised lighting adjusted clutter-free environment maintained fall prevention program maintained safety round/check completed toileting scheduled mobility aid in reach Intervention: Prevent Skin Injury Flowsheets Taken 12/17/20241321 Body Position: weight shifting Taken 12/17/2024 0900 Skin Protection: transparent dressing maintained pulse oximeter probe site changed protective footwear used Intervention: Prevent and Manage VTE (Venous Thromboembolism) Risk Flowsheets (Taken 12/17/2024 1322) VTE Prevention/Management: (ambulating) -- Intervention: Prevent Infection Flowsheets (Taken 12/17/2024 132) Infection Prevention: environmental surveillance performed hand hygiene promoted single patient room provided rest/sleep promoted Goal: Optimal Comfort and Wellbeing Outcome: Ongoing, Progressing Intervention: Monitor Pain and Promote Comfort Flowsheets (Taken 12/17/2024 132) Pain Management Interventions: pillow support provided quiet environment facilitated relaxation techniques promoted position adjusted rest Intervention: Provide Person-Centered Care Flowsheets (Taken 12/17/2024 132) Trust Relationship/Rapport: care explained questions encouraged questions answered Problem: Cardiac Output Decreased Goal: Effective Cardiac Output Outcome: Ongoing, Progressing Intervention: Optimize Cardiac Output Flowsheets (Taken 12/17/2024 1322) Stabilization Measures: legs elevated Environmental Support: calm environment promoted environmental consistency promoted caregiver consistency promoted comfort object encouraged VTE Prevention/Management: (ambulating) -- Head of Bed (HOB) Positioning: HOB elevated Problem: Surgery Nonspecified Goal: Absence of Infection Signs and Symptoms Outcome: Ongoing, Progressing Intervention: Prevent or Manage Infection Flowsheets (Taken 12/17/2024 1322) Infection Management: aseptic technique maintained Fever Reduction/Comfort Measures: lightweight bedding lightweight clothing Isolation Precautions: protective precautions maintained Goal: Absence of Bleeding Outcome: Ongoing, Progressing Intervention: Monitor and Manage Bleeding Flowsheets (Taken 12/17/2024 132) Bleeding Management: dressing monitored Goal: Effective Bowel Elimination Outcome: Ongoing, Progressing Intervention: Enhance Bowel Motility and Elimination Flowsheets (Taken 12/17/2024 132) Bowel Elimination Management: relaxation techniques promoted hygiene measures promoted Bowel Motility Enhancement: ambulation promoted Goal: Fluid and Electrolyte Balance Outcome: Ongoing, Progressing Intervention: Monitor and Manage Fluid and Electrolyte Balance Flowsheets (Taken 12/17/2024 1322) Fluid/Electrolyte Management: fluids adjusted Goal: Blood Glucose Level Within Target Range Outcome: Ongoing, Progressing Goal: Anesthesia/Sedation Recovery Outcome: Ongoing, Progressing Goal: Optimal Pain Control and Function Outcome: Ongoing, Progressing Intervention: Prevent or Manage Pain Flowsheets (Taken 12/17/2024 1322) Pain Management Interventions: pillow support provided quiet environment facilitated relaxation techniques promoted position adjusted rest Diversional Activities: television smartphone Goal: Nausea and Vomiting Relief Outcome: Ongoing, Progressing Intervention: Prevent or Manage Nausea and Vomiting Flowsheets (Taken 12/17/2024 1322) Nausea/Vomiting Interventions: slow deep breathing encouraged Goal: Effective Urinary Elimination Outcome: Ongoing, Progressing Intervention: Monitor and Manage Urinary Retention Flowsheets (Taken 12/17/2024 1322) Urinary Elimination Promotion: frequent voiding encouraged positioned for ease of voiding toileting offered Goal: Effective Oxygenation and Ventilation Outcome: Ongoing, Progressing Intervention: Optimize Oxygenation and Ventilation Flowsheets (Taken 12/17/2024 1322) Activity Management: activity encouraged Airway/Ventilation Management: airway patency maintained calming measures promoted position adjusted Head of Bed (HOB) Positioning: HOB elevated Cough And Deep Breathing: done with encouragement Problem: Oral Intake Inadequate Goal: Improved Oral Intake Outcome: Ongoing, Progressing Problem: Fall Injury Risk Goal: Absence of Fall and Fall-Related Injury Outcome: Ongoing, Progressing Intervention: Identify and Manage Contributors Flowsheets (Taken 12/17/2024 132) Medication Review/Management: medications reviewed Self-Care Promotion: independence encouraged BADL personal objects within reach adaptive equipment use encouraged Intervention: Promote Injury-Free Environment Flowsheets (Taken 12/17/2024 132) Safety Promotion/Fall Prevention: activity supervised lighting adjusted clutter-free environment maintained fall prevention program maintained safety round/check completed toileting scheduled mobility aid in reach Problem: Infection Goal: Absence of Infection Signs and Symptoms Outcome: Ongoing, Progressing Intervention: Prevent or Manage Infection Flowsheets (Taken 12/17/2024 132) Infection Management: aseptic technique maintained Fever Reduction/Comfort Measures: lightweight bedding lightweight clothing Isolation Precautions: protective precautions maintained Problem: Cardiac Rhythm Management Device Goal: Optimal Adjustment to Device Outcome: Ongoing, Progressing Intervention: Optimize Psychosocial Response to Device Implantation Flowsheets (Taken 12/17/2024 132) Supportive Measures: relaxation techniques promoted self-care encouraged Family/Support System Care: support provided self-care encouraged Goal: Absence of Bleeding Outcome: Ongoing, Progressing Goal: Effective Device Function Outcome: Ongoing, Progressing Goal: Absence of Infection Signs and Symptoms Outcome: Ongoing, Progressing Intervention: Prevent or Manage Infection Flowsheets (Taken 12/17/2024 132) Infection Management: aseptic technique maintained Fever Reduction/Comfort Measures: lightweight bedding lightweight clothing Goal: Acceptable Pain Level Outcome: Ongoing, Progressing Intervention: Prevent or Manage Pain Flowsheets (Taken 12/17/2024 132) Pain Management Interventions: pillow support provided quiet environment facilitated relaxation techniques promoted position adjusted rest Goal: Effective Oxygenation and Ventilation Outcome: Ongoing, Progressing Intervention: Optimize Oxygenation and Ventilation Flowsheets (Taken 12/17/2024 132) Airway/Ventilation Management: airway patency maintained calming measures promoted position adjusted Cough And Deep Breathing: done with encouragement Problem: Wound Goal: Optimal Coping Outcome: Ongoing, Progressing Intervention: Support Patient and Family Response Flowsheets (Taken 12/17/2024 132) Supportive Measures: relaxation techniques promoted self-care encouraged Family/Support System Care: support provided self-care encouraged Goal: Optimal Functional Ability Outcome: Ongoing, Progressing Goal: Absence of Infection Signs and Symptoms Outcome: Ongoing, Progressing Intervention: Prevent or Manage Infection Flowsheets (Taken 12/17/2024 1322) Infection Management: aseptic technique maintained Fever Reduction/Comfort Measures: lightweight bedding lightweight clothing Isolation Precautions: protective precautions maintained Goal: Improved Oral Intake Outcome: Ongoing, Progressing Goal: Optimal Pain Control and Function Outcome: Ongoing, Progressing Goal: Skin Health and Integrity Outcome: Ongoing, Progressing Intervention: Optimize Skin Protection Flowsheets (Taken 12/17/2024 1322) Activity Management: activity encouraged Pressure Reduction Techniques: frequent weight shift encouraged Skin Protection: protective footwear used Head of Bed (HOB) Positioning: HOB elevated Goal: Optimal Wound Healing Outcome: Ongoing, Progressing Intervention: Promote Wound Healing Flowsheets (Taken 12/17/2024 1322) Sleep/Rest Enhancement: natural light exposure provided relaxation techniques promoted Problem: Pain Acute Goal: Optimal Pain Control and Function Outcome: Ongoing, Progressing Intervention: Optimize Psychosocial Wellbeing Flowsheets (Taken 12/17/2024 132) Supportive Measures: relaxation techniques promoted self-care encouraged Diversional Activities: television smartphone Intervention: Develop Pain Management Plan Flowsheets (Taken 12/17/2024 132) Pain Management Interventions: pillow support provided quiet environment facilitated relaxation techniques promoted position adjusted rest Intervention: Prevent or Manage Pain Flowsheets (Taken 12/17/2024 132) Sensory Stimulation Regulation: quiet environment promoted lighting decreased care clustered Sleep/Rest Enhancement: natural light exposure provided relaxation techniques promoted Medication Review/Management: medications reviewed * Progress Notes - Kourtney Rios APRN - 12/17/2024 8:55 AM EDT CVT Daily Progress Note Past 24 Hours/Subjective: No acute events overnight. Patient remains hemodynamically stable. She denies chest pain and shortness of breath. Will obtain a limited echo prior to discharge. Objective: All vital signs, images, tracings and labs personally reviewed unless otherwise indicated VITALS Visit Vitals BP 131/65 (BP Location: Left arm, Patient Position: Lying) Pulse 72 Temp 36.6 ??C (97.8 ??F) (Oral) Ht 1.651 m (5' 5 ) Wt 66.6 kg (146 lb 13.2 oz) SpO2 96% BMI 24.43 kg/m?? Temp: [36.4 ??C (97.5 ??F)-36.8 ??C (98.3 ??F)] 36.6 ??C (97.8 ??F) Heart Rate: [70-88] 72 Resp: [12-21] 15 BP: (101-154)/(50-72) 131/65 Physical Exam: CONSTITUTIONAL: [facility] NAD HENMT: Head atraumatic, normocephalic, Nares patent, Moist mucous membranes without pallor, normal dentition EYES: PERRLA. No scleral icterus or conjunctivitis. NECK: Supple. Nontender. No JVD. The trachea appears midline. PULM: Breath sounds clear throughout. No accessory muscle use CARDIAC: RRR, S1S2. No murmur, rubs, or gallop. No edema GI: Abdomen soft, nontender, nondistended. BSA No HSM noted SKIN: No rashes. No cyanosis or clubbing. NEURO: Alert and oriented x3. Moves all extremities with purpose. PSYCH: Cooperative with care. Mood & affect congruent and appropriate to situation. I & O SUMMARY No intake/output data recorded. No intake/output data recorded. MEDICATIONS Current Scheduled Medications[1] Current Continuous Medications[2] Current PRN Medications[3] LABS: No new labs Radiographics/Diagnostics: All images personally reviewed and I agree with the radiology interpretation No echocardiogram results found for the past 12 months XR CHEST 2 VIEWS 12/15/2024: CLINICAL INDICATION: Pre-Op cardiac surgery COMPARISON: None. FINDINGS: The cardiomediastinal silhouette is normal. Left chest ICD with leads overlying the right atrium and right ventricle The lungs are clear focal consolidation or pleural effusion. No pneumothorax. The visualized osseous structures are intact. - Impression - No acute pulmonary process. XR Chest 1 View Result Date: 12/17/2024 Impression: No significant interval change. CRITICAL RESULT: No. COMMUNICATION: Per this written report. Drafted by Mady Hernandez MD on 12/17/2024 10:09 AM Final report signed by Mady Hernandez MD on 12/17/2024 10:11 AM Problem List: Principal Problem: Pericardial effusion Active Problems: Paroxysmal atrial fibrillation (CMS/HCC) HTN (hypertension) Hyperlipidemia GERD (gastroesophageal reflux disease) S/P placement of cardiac pacemaker Anxiety Severe protein-calorie malnutrition (CMS/HCC) Tachy-carlos syndrome (CMS/HCC) Chronic anticoagulation Assessment: Hazel Manning is an 84 yo female with PAF/bradycardia who underwent PPM 3 weeks ago and now with a moderate pericardial effusion. Pericardial Effusion - moderate with no evidence of tamponade - hemopericardium suspected in light of anticoagulation - CT and Echo films in [facility] - Films reviewed with Dr. Hernandez - Interventional Cardiology has reviewed images and plan for pericardiocentesis today - 12/16 pericardiocentesis removed 170 ml, drain removed - 12/17 follow up ECHO pending Paroxysmal A-fib Tachy-carlos syndrome Chronic anticoagulation therapy - symptomatic - s/p PPM 11/22/2024 - Tikosyn initiated 12/01, will continue - Last dose of Xarelto 12/12, continue to hold for now - continue PO metoprolol for rate control - can restart diltiazem gtt as needed - Restart Xarelto at time of discharge HTN - continue metoprolol - monitor HLD - continue statin GERD - continue PPI Anxiety - monitor and treat as needed Plan: - F/U Limited echo - Continue metoprolol and Tikosyn - Plan for discharge in AM if stable CT surgery pager [phone] [1] atorvastatin, 40 mg, Oral, Nightly cetirizine, 10 mg, Oral, Nightly cholecalciferol, 1,000 Units, Oral, Daily docusate sodium, 100 mg, Oral, BID dofetilide, 250 mcg, Oral, q12h magnesium oxide, 400 mg, Oral, Daily metoprolol tartrate, 25 mg, Oral, BID pantoprazole, 40 mg, Oral, Daily senna, 17.2 mg, Oral, Nightly sodium chloride, 10 mL, Intravenous, q12h [2] [3] PRN medications: calcium carbonate, nitroglycerin, oxyCODONE, simethicone, [COMPLETED] Insert peripheral IV AND Saline lock IV AND sodium chloride AND sodium chloride * Care Plan - Paul Driscoll RN - 12/17/2024 2:15 AM EDT Problem: Adult Inpatient Plan of Care Goal: Plan of Care Review Outcome: Ongoing, Progressing Flowsheets (Taken 12/16/2024 170 by Dre Barbosa RN) Progress: improving Outcome Evaluation: Pt vee able to understand and participate in her plan of care. Plan of Care Reviewed With: patient Goal: Patient-Specific Goal (Individualized) Outcome: Ongoing, Progressing Flowsheets (Taken 12/16/20241999) Patient/Family-Specific Goals (Include Timeframe): Patient to remain free from falls or injuries during this shift Individualized Care Needs: Pericardiocentisis earlier today Anxieties, Fears or Concerns: none Goal: Absence of Hospital-Acquired Illness or Injury Outcome: Ongoing, Progressing Intervention: Identify and Manage Fall Risk Flowsheets (Taken 12/16/20241999) Safety Promotion/Fall Prevention: activity supervised assistive device/personal items within reach clutter-free environment maintained fall prevention program maintained lighting adjusted mobility aid in reach nonskid shoes/slippers when out of bed room organization consistent safety round/check completed Intervention: Prevent Skin Injury Flowsheets Taken 12/16/20241999 by Paul Driscoll RN Body Position: sitting up in bed Taken 12/16/20241919 by Dre Barbosa RN Skin Protection: transparent dressing maintained incontinence pads utilized Intervention: Prevent and Manage VTE (Venous Thromboembolism) Risk Flowsheets (Taken 12/16/20242344) VTE Prevention/Management: SCDs (sequential compression devices) off medication Intervention: Prevent Infection Flowsheets (Taken 12/16/20241919 by Dre Barbosa RN) Infection Prevention: environmental surveillance performed equipment surfaces disinfected hand hygiene promoted single patient room provided rest/sleep promoted Goal: Optimal Comfort and Wellbeing Outcome: Ongoing, Progressing Intervention: Monitor Pain and Promote Comfort Flowsheets (Taken 12/16/20241919 by Dre Barbosa RN) Pain Management Interventions: medication (see MAR) position adjusted relaxation techniques promoted Intervention: Provide Person-Centered Care Flowsheets (Taken 12/16/20241919 by Dre Barbosa RN) Trust Relationship/Rapport: care explained questions encouraged questions answered thoughts/feelings acknowledged empathic listening provided emotional support provided Problem: Cardiac Output Decreased Goal: Effective Cardiac Output Outcome: Ongoing, Progressing Intervention: Optimize Cardiac Output Flowsheets Taken 12/16/20242344 by Paul Driscoll RN VTE Prevention/Management: SCDs (sequential compression devices) off medication Taken 12/16/20241999 by Paul Driscoll RN Head of Bed (HOB) Positioning: HOB elevated Taken 12/16/20241919 by Dre Barbosa RN Stabilization Measures: prepared for surgical intervention Environmental Support: calm environment promoted distractions minimized rest periods encouraged environmental consistency promoted Problem: Surgery Nonspecified Goal: Absence of Infection Signs and Symptoms Outcome: Ongoing, Progressing Intervention: Prevent or Manage Infection Flowsheets Taken 12/16/20241999 by Paul Driscoll RN Isolation Precautions: precautions maintained protective Taken 12/16/20241919 by Dre Barbosa RN Fever Reduction/Comfort Measures: lightweight clothing lightweight bedding Taken 12/15/20241848 by Young Osman RN Infection Management: aseptic technique maintained Problem: Oral Intake Inadequate Goal: Improved Oral Intake Outcome: Ongoing, Progressing Intervention: Promote and Optimize Oral Intake Flowsheets (Taken 12/16/20241919 by Dre Barbosa RN) Oral Nutrition Promotion: rest periods promoted calorie-dense foods provided Nutrition Interventions: diet liberalized * Care Plan - Dre Barbosa RN - 12/16/2024 7:20 PM EDT Problem: Adult Inpatient Plan of Care Goal: Plan of Care Review 12/16/20241744 by Dre Barbosa RN Outcome: Ongoing, Progressing Flowsheets (Taken 12/16/2024 1704) Progress: improving Outcome Evaluation: Pt vee able to understand and participate in her plan of care. Plan of Care Reviewed With: patient 12/16/20241702 by Dre Barbosa RN Outcome: Ongoing, Progressing Goal: Patient-Specific Goal (Individualized) Outcome: Ongoing, Progressing Flowsheets (Taken 12/16/2024 1610) Patient/Family-Specific Goals (Include Timeframe): Pt will remain fall and injury free Individualized Care Needs: Safety Anxieties, Fears or Concerns: None stated Goal: Absence of Hospital-Acquired Illness or Injury 12/16/20241919 by Dre Barbosa RN Outcome: Ongoing, Progressing 12/16/20241744 by Dre Barbosa RN Outcome: Ongoing, Progressing Intervention: Identify and Manage Fall Risk Flowsheets (Taken 12/16/2024 1610) Safety Promotion/Fall Prevention: activity supervised assistive device/personal items within reach clutter-free environment maintained fall prevention program maintained lighting adjusted nonskid shoes/slippers when out of bed room organization consistent safety round/check completed Intervention: Prevent Skin Injury Flowsheets Taken 12/16/20241919 Skin Protection: transparent dressing maintained incontinence pads utilized Taken 12/16/2024 1610 Body Position: turned left legs elevated lower extremity elevated weight shifting Intervention: Prevent and Manage VTE (Venous Thromboembolism) Risk Flowsheets (Taken 12/16/2024 192) VTE Prevention/Management: medication Intervention: Prevent Infection Flowsheets (Taken 12/16/20241919) Infection Prevention: environmental surveillance performed equipment surfaces disinfected hand hygiene promoted single patient room provided rest/sleep promoted Goal: Optimal Comfort and Wellbeing Outcome: Ongoing, Progressing Intervention: Monitor Pain and Promote Comfort Flowsheets (Taken 12/16/20241919) Pain Management Interventions: medication (see MAR) position adjusted relaxation techniques promoted Intervention: Provide Person-Centered Care Flowsheets (Taken 12/16/20241919) Trust Relationship/Rapport: care explained questions encouraged questions answered thoughts/feelings acknowledged empathic listening provided emotional support provided Problem: Cardiac Output Decreased Goal: Effective Cardiac Output Outcome: Ongoing, Progressing Intervention: Optimize Cardiac Output Flowsheets (Taken 12/16/20241919) Stabilization Measures: prepared for surgical intervention Environmental Support: calm environment promoted distractions minimized rest periods encouraged environmental consistency promoted VTE Prevention/Management: medication Head of Bed (HOB) Positioning: HOB elevated HOB at 30-45 degrees Problem: Surgery Nonspecified Goal: Absence of Infection Signs and Symptoms Outcome: Ongoing, Progressing Intervention: Prevent or Manage Infection Flowsheets (Taken 12/16/20241919) Fever Reduction/Comfort Measures: lightweight clothing lightweight bedding Isolation Precautions: precautions maintained * Nursing Note - Kassandra Coyle RN - 12/16/2024 3:45 PM EDT Report called to Dre ORTIZ * Progress Notes - Victoria Jay RN - 12/16/2024 3:06 PM EDT Case Management Adult Initial Progress Note Hazel Manning 84 y.o. female CSN: [id number] Admission: 12/15/2024 9:59 AM Primary Problem: Pericardial effusion Chief Medical Director reviewed chart and spoke with Koffi Manning (Spouse) and Yuridia Rhodes ( daughter, to complete this Initial Case Management Assessment. PCP: Allen Love MD Emergency Contact: Extended Emergency Contact Information Primary Emergency Contact: Koffi Manning Mobile Relation: Spouse Preferred language: Divehi Veterinary Surgeon needed? No Insurance: Primary Visit Coverage Payer Plan Sponsor Code Group Number Group Name MEDICARE MEDICARE A & B Primary Visit Coverage Subscriber Subscriber ID Subscriber Name Subscriber [facility] Subscriber Address [id number] HAZEL MANNING [id number] [place] [address] Secondary Visit Coverage Payer Plan Sponsor Code Group Number Group Name AETNA AETNA MEDICARE SUPPLEMENT [id number] Secondary Visit Coverage Subscriber Subscriber ID Subscriber Name Subscriber [facility] Subscriber Address [id number] HAZEL MANNING [phone] [place] [address] [address] [place] [address] Patient information: Primary Caregiver: Self Support System: Immediate family Daily Living Activities: Functional Status: Independent Living Arrangements: Spouse/Significant other Type of Residence: Private residence, Multi Level (one step to enter home) [address] [place] [address] Smoker in the Home?: No Current DME: Equipment Currently Used at Home: none Income Information: Income Source: Retired Current Resources Utilized: None Housing Circumstances-Z Codes: Housing Circumstances (select all that apply): None Applicable Anticipated Discharge Date: 12/19/24 Patient's Discharge Goal: home Assistance Available at Discharge: spouse /daughter Discharge Transport: family Follow Up Transport: family Home Health / Home Infusion / Outpatient Dialysis Services: None No preference for HH/DME/IRF if needed on DC. Living Will/Advance Directive/Power of Newspaper Inserter /Guardian: None Information Provided on Healthcare Directives: No Pre-existing DNR/DNI Order: No Patient Requests Assistance: No Additional Comments: Victoria Jay, RN * Progress Notes - Aury Bell PA - 12/16/2024 2:01 PM EDT CVT Daily Progress Note Past 24 Hours/Subjective: Patient remained hemodynamically stable, afebrile, and rested comfortably overnight. Objective: All vital signs, images, tracings and labs personally reviewed unless otherwise indicated VITALS Visit Vitals BP 136/68 Pulse 70 Temp 36.8 ??C (98.2 ??F) (Oral) Ht 1.651 m (5' 5 ) Wt 66.6 kg (146 lb 13.2 oz) SpO2 98% BMI 24.43 kg/m?? Temp: [36.4 ??C (97.6 ??F)-36.9 ??C (98.5 ??F)] 36.8 ??C (98.2 ??F) Heart Rate: [69-81] 70 Resp: [14-16] 16 BP: (101-137)/(50-79) 136/68 Physical Exam: CONSTITUTIONAL: WNWD NAD HENMT: Head atraumatic, normocephalic, Nares patent, Moist mucous membranes without pallor, normal dentition EYES: PERRLA. No scleral icterus or conjunctivitis. NECK: Supple. Nontender. No JVD. The trachea appears midline. PULM: Breath sounds clear throughout. No accessory muscle use CARDIAC: RRR, S1S2. No murmur, rubs, or gallop. No edema GI: Abdomen soft, nontender, nondistended. BSA No HSM noted SKIN: No rashes. No cyanosis or clubbing. NEURO: Alert and oriented x3. Moves all extremities with purpose. PSYCH: Cooperative with care. Mood & affect congruent and appropriate to situation. I & O SUMMARY No intake/output data recorded. No intake/output data recorded. MEDICATIONS Current Scheduled Medications[1] Current Continuous Medications[2] Current PRN Medications[3] LABS: No new labs Radiographics/Diagnostics: All images personally reviewed and I agree with the radiology interpretation No echocardiogram results found for the past 12 months XR CHEST 2 VIEWS 12/15/2024: CLINICAL INDICATION: Pre-Op cardiac surgery COMPARISON: None. FINDINGS: The cardiomediastinal silhouette is normal. Left chest ICD with leads overlying the right atrium and right ventricle The lungs are clear focal consolidation or pleural effusion. No pneumothorax. The visualized osseous structures are intact. - Impression - No acute pulmonary process. Problem List: Principal Problem: Pericardial effusion Active Problems: Paroxysmal atrial fibrillation (CMS/HCC) HTN (hypertension) Hyperlipidemia GERD (gastroesophageal reflux disease) S/P placement of cardiac pacemaker Anxiety Severe protein-calorie malnutrition (CMS/HCC) Assessment: Hazel Manning is an 84 yo female with PAF/bradycardia who underwent PPM 3 weeks ago and now with a moderate pericardial effusion. Pericardial Effusion - moderate with no evidence of tamponade - hemopericardium suspected in light of anticoagulation - CT and Echo films in imaging - Films reviewed with Dr. 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 - s/p PPM 11/22/2024 - Tikosyn initiated 12/01, will continue - Last dose of Xarelto 12/12, continue to hold for now - continue PO metoprolol for rate control - can restart diltiazem gtt as needed HTN - continue metoprolol - monitor HLD - continue statin GERD - continue PPI Anxiety - monitor and treat as needed Plan: - To medical laboratory scientist today for intervention CT surgery pager [phone] [1] [Transfer Hold] atorvastatin, 40 mg, Oral, Nightly [Transfer Hold] cetirizine, 10 mg, Oral, Nightly [Transfer Hold] cholecalciferol, 1,000 Units, Oral, Daily [Transfer Hold] docusate sodium, 100 mg, Oral, BID [Transfer Hold] dofetilide, 250 mcg, Oral, q12h [Transfer Hold] magnesium oxide, 400 mg, Oral, Daily [Transfer Hold] metoprolol tartrate, 25 mg, Oral, BID [Transfer Hold] pantoprazole, 40 mg, Oral, Daily [Transfer Hold] senna, 17.2 mg, Oral, Nightly [Transfer Hold] sodium chloride, 10 mL, Intravenous, q12h [2] [3] PRN medications: [Transfer Hold] calcium carbonate, [Transfer Hold] nitroglycerin, [Transfer Hold] simethicone, [COMPLETED] Insert peripheral IV AND Saline lock IV AND [Transfer Hold] sodium chloride AND [Transfer Hold] sodium chloride * Pre-Procedure Note - Ze Givens DO - 12/16/2024 2:00 PM EDT Images from the original note were not included. CARDIOLOGY PRE-PROCEDURAL ASSESSMENT AND SEDATION PLAN Indication for procedure: The encounter diagnosis was Pericardial effusion. Planned Procedure: Pericardial effusion Relevant past medical history: s/p PPM at OSH Relevant review of systems: NA Relevant Labs: Lab Results Component Value Date CREATININE 0.79 12/15/2024 EGFR 74.8 12/15/2024 Planned Sedation/Anesthesia: Moderate Airway assessment: normal Mallampati Score: II (hard and soft palate, upper portion of tonsils anduvula visible) ASA: ASA 2 - Patient with mild systemic disease with no functional limitations Directed physical examination: Vitals: 12/16/24 1326 BP: 136/68 Pulse: 70 Resp: 16 Temp: 36.8 ??C (98.2 ??F) SpO2: 98% GENERAL: Awake, alert, NAD HEENT: NCAT NECK: No appreciable JVD CARDIAC: Regular rate, regular rhythm, normal S1/S2, no m/r/g, 2+ radial pulses bilaterally PULM: CTAB without increased work of breathing ABD: Soft, NT, ND EXT: Warm and well perfused, no LE edema SKIN: No rashes or lesions NEURO: A&Ox4, moving all extremities spontaneously Benefits, risks and alternatives of procedure and planned sedation have been discussed with the patient and/or their sales representative jewelry. All questions answered and they agree to proceed. Jennifer Givens DO Department of Cardiovascular Disease Fellow, PGY-4 * Progress Notes - Victoria Jay RN - 12/16/2024 12:46 PM EDT Case Management Adult Progress Note Hazel Manning 84 y.o. female CSN: [id number] Admission: 12/15/2024 9:59 AM Primary Problem: Pericardial effusion Anticipated Discharge Date: 11/17/24 Ms. Manning working with treatment team. CM staff will follow up for SDOH and initial assessment. Additional Comments Victoria Jay RN * Progress Notes - Georgina Thrasher - 12/16/2024 12:34 PM EDT Physical Therapy Evaluation Patient Name: Hazel Manning Today's Date: 12/16/2024 PT Discharge Recommendations: Home with assistance, Home health PT, Home health OT Equipment Recommended: Patient owns appropriate equipment Total Treatment Time: 24 minutes History Hazel Manning is 84 y.o. female admitted 12/15/2024 for work-up of Pericardial effusion. Problem List Active Hospital Problems Diagnosis Date Noted Severe protein-calorie malnutrition (CMS/HCC) 12/16/2024 Pericardial effusion 12/15/2024 Paroxysmal atrial fibrillation (CMS/HCC) 12/15/2024 HTN (hypertension) 12/15/2024 Hyperlipidemia 12/15/2024 GERD (gastroesophageal reflux disease) 12/15/2024 S/P placement of cardiac pacemaker 12/15/2024 Anxiety 12/15/2024 Procedures 12/15/2024 - 12/16/2024 Procedure(s): Pericardial Drain Placement Past Medical History Patient has a past medical history of Arthritis, Enterocolitis due to Clostridium difficile, not specified as recurrent, GERD (gastroesophageal reflux disease) (12/15/2024), HTN (hypertension) (12/15/2024), Migraine, unspecified, not intractable, without status migrainosus, Nephrolithiasis, Paroxysmal atrial fibrillation (CMS/HCC) (12/15/2024), Personal history of other diseases of the musculoskeletal system and connective tissue, Personal history of urinary calculi, and S/P placement of cardiac pacemaker (12/15/2024). Past Surgical History Patient has a past surgical history that includes No past surgeries (N/A); Hemorrhoid surgery; and Skin cancer excision (N/A). Precautions None Subjective Pt agreeable to PT session Participants in Care Family/Caregiver Present: Yes Family/Caregiver: Adult Daughter, Spouse Presentation Oxygen Therapy: None (Room air) Lines and Tubes: Telemetry, Intravenous access Pre-Session: Supine, Head of bed elevated, Lines intact Pre-Session Comments: RN agreeable Post-Session: Supine, Head of bed elevated, Lines intact, Call light in reach, RN notified Post-Session Comments: All needs met Home Living/Set-up Lives With: Spouse Home Type: House Home Adaptive Equipment: Rollator, Quad cane Home Layout: Able to live on one level with bedroom/bathroom, Multi-level, Stairs to enter without rails Number of Stairs: 1 Bathroom: Tub/Shower: Walk-in shower Bathroom: Toilet: Tall Prior Level of Function Receives Help From: No assist required prior to admission Level of Mobility: Ambulatory- community Mobility [place]: Independent gait without device History of Falls: No ADL Performance: Independent Patient/Family Goals To feel better and go home Objective Pain Pt with no complaints of pain. Delirium Screening RASS: Alert and calm Confusion Assessment Method-ICU (CAM-ICU/PCAM-ICU) Feature 3: Altered Level of Consciousness: Negative Cognition Overall Cognitive Status: Within Functional Limits Arousal/Alertness: Appropriate responses to stimuli Mood/Behavior: Alert Orientation Level: Oriented X4 Single Step Commands: Consistently Multi-Step Commands: Consistently Method of Communication: Verbal Vision - Basic Assessment Baseline Vision: Glasses reading Current Vision: Intact Visual History: Glaucoma Tracking: Intact Right Upper Extremity Examination RUE Assessment: Within Functional Limits Manual Muscle Testing - RUE: Within functional limits Sensation Light Touch: Right Upper Extremity: Intact Left Upper Extremity Examination LUE ROM Assessment LUE Assessment: Within Functional Limits Manual Muscle Testing - LUE Manual Muscle Testing - LUE: Within functional limits Sensation Light Touch: Left Upper Extremity: Intact Right Lower Extremity Examination RLE ROM Assessment RLE Assessment: Within Functional Limits Manual Muscle Testing - RLE Manual Muscle Testing - RLE: Within functional limits Sensation Light Touch: Right Lower Extremity: Intact Left Lower Extremity Examination LLE Assessment: Within Functional Limits Manual Muscle Testing: Within functional limits Sensation Light Touch: Left Lower Extremity: Intact Bed Mobility Bed Mobility Exam: Supine to Sit Level of [place]: Stand-by assist Physical/Nonphysical Assist: HOB elevated, Supervision Bed Mobility Exam: Sit to Supine Level of [place]: Stand-by assist Physical/Nonphysical Assist: Supervision, HOB elevated Transfers Transfer Exam: Sit to stand Level of [place]: Stand-by assist Physical/Nonphysical Assist: Supervision Transfer Exam: Stand to Sit Level of [place]: Stand-by assist Physical/Nonphysical Assist: Supervision Ambulation Device: No device Assistance: Standby assist, Minimal verbal cues Distance : 200' Ambulation Comments: Pt with decreased marv and step length but required no rest breaks and had no losses of balance Balance Postural Appearance Posture: Within Functional Limits Static Sitting Balance Static Sitting-Level of Assistance: Independent Dynamic Sitting Balance Level of Assistance: Standby assisst Static Standing Balance Static Standing-Level of Assistance: Standby assist Dynamic Standing Balance Dynamic Standing Level of Assistance: Standby assist Therapeutic Activity (9 minutes) Pt participated in therapeutic activities including bed mobility, functional transfers, and ambulation to improve strength, balance, endurance and independence with functional mobility. Pt completed all mobility with SBA and maintained vital signs WNL. Pt required no rest breaks and had no losses of balance. Standardized Assessments Standardized Assessments Standardized Assessments: AMPA 6-Clicks Mobility Assessment AMPA 6-Clicks Mobility Assessment Difficulty patient has turning over in bed (including adjusting bedclothes, sheets, and blankets)?:None Difficulty patient has sitting down on and standing up from a chair with arms (wheelchair, bedside commode, etc.)?: None Difficulty patient has moving from lying on back to sitting on the side of the bed?: None How much help does the patient need moving to and from a bed to a chair (including a wheelchair)?: None How much help does the patient need to walk in hospital room?: None How much help does the patient need climbing 3-5 steps with a railing?: A little [facility] 6-Clicks Mobility Assessment Total : 23 No data recorded Assessment In addition to PT initial assessment, pt participated in therapeutic activities. Pt tolerated PT interventions with no adverse effects and maintained vital signs WNL. Pt presents with impairments listed below and would benefit from continued skilled PT intervention to progress functional mobility and return to prior level of function. Pt is able to stay on main floor if needed but pt would benefit from PT follow up to practice stair training as pts main bedroom is on 2nd floor. Impairments: Decreased endurance, ventilation, and/or gas exchange, Impaired balance, Impaired functional mobility/transfers Activity Limitations: Inability to ambulate community distances, Inability to transfer independently, Inability to ambulate independently Participation Restrictions: Home management, Community leisure Activity Tolerance: Tolerates 10-20 minutes of activity without rest Evaluation/Treatment Tolerance: (Pt tolerated eval with no issues) Diagnosis: impaired functional mobility and activity tolerance Rehab Potential: Good, to achieve stated therapy goals Eval Complexity History Profile: 1 - 2 personal factors and/or comorbidities Clinical Presentation: Evolving clinical presentation with changing characteristics Clinical Decision Making: Moderate complexity PT Recommendations Discharge Destination: Home with assistance, Home health PT, Home health OT Discharge Equipment: Patient owns appropriate equipment Plan Planned PT Interventions Balance training, Bed mobility training, Gait training, Transfer training, Strengthening, Functional Mobility PT Frequency 2 - 5 times per week PT Duration 2 weeks Goals PT GOAL DETAILS Time Frame PT Goal 1: Pt will be IND with sup <> sit 2 weeks PT Goal 2: Pt will perform sit to stand and bed to chair transfers IND 2 weeks PT Goal 3: Pt will ambulate 600' IND with no rest breaks or losses of balance 2 weeks PT Goal 4: Pt will navigate 1 flight of stairs SBA x1 with no rest breaks or losses of balance 2 weeks Written by Georgina Thrasher on 12/16/24 at 2:48 PM. * Progress Notes - Idalia Hitchcock - 12/16/2024 12:25 PM EDT Occupational Therapy Evaluation Patient Name: Hazel Manning Today's Date: 12/16/2024 OT Discharge Recommendations: Home with assistance, Home health OT, Home health PT Equipment Recommended: Patient owns appropriate equipment History Hazel Manning is 84 y.o. female admitted 12/15/2024 for work-up of Pericardial effusion. Problem List Active Hospital Problems Diagnosis Date Noted Severe protein-calorie malnutrition (CMS/HCC) 12/16/2024 Tachy-carlos syndrome (CMS/HCC) 12/16/2024 Chronic anticoagulation 12/16/2024 Pericardial effusion 12/15/2024 Paroxysmal atrial fibrillation [place] 12/15/2024 HTN (hypertension) 12/15/2024 Hyperlipidemia 12/15/2024 GERD (gastroesophageal reflux disease) 12/15/2024 S/P placement of cardiac pacemaker 12/15/2024 Anxiety 12/15/2024 Procedures 12/16/2024 Procedure(s): Pericardial Drain Placement Past Medical History Patient has a past medical history of Arthritis, Chronic anticoagulation (12/16/2024), Enterocolitis due to Clostridium difficile, not specified as recurrent, GERD (gastroesophageal reflux disease) (12/15/2024), HTN (hypertension) (12/15/2024), Migraine, unspecified, not intractable, without statusmigrainosus, Nephrolithiasis, Paroxysmal atrial fibrillation ([facility]) (12/15/2024), Personal history of other diseases of the musculoskeletal system and connective tissue, Personal history of urinary calculi, S/P placement of cardiac pacemaker (12/15/2024), and Tachy-carlos syndrome ([facility]) (12/16/2024). Past Surgical History Patient has a past surgical history that includes No past surgeries (N/A); Hemorrhoid surgery; and Skin cancer excision (N/A). Precautions None Subjective Pt consent to tx Participants in Care Family/Caregiver Present: Yes Family/Caregiver: Adult Daughter, Spouse Veterinary Surgeon: Not Applicable Presentation Oxygen Therapy: None (Room air) Lines and Tubes: Telemetry, Intravenous access Pre-Session: Supine, Head of bed elevated, Lines intact Pre-Session Comments: RN agreeable Post-Session: Supine, Head of bed elevated, Lines intact, Call light in reach, RN notified Post-Session Comments: All needs met Home Living/Set-up Lives With: Spouse Home Type: House Home Adaptive Equipment: Rollator, Quad cane Home Layout: Able to live on one level with bedroom/bathroom, Multi-level, Stairs to enter without rails Number of Stairs: 1 Bathroom: Tub/Shower: Walk-in shower Bathroom: Toilet: Tall Prior Level of Function Receives Help From: No assist required prior to admission Level of Mobility: Ambulatory- community Mobility [place]: Independent gait without device History of Falls: No ADL Performance: Independent Patient/Family Goals Statement Pt consent to tx Objective Pain Pt does not endorse pain Delirium Screening RASS: Alert and calm Confusion Assessment Method-ICU (CAM-ICU/PCAM-ICU) Feature 3: Altered Level of Consciousness: Negative Cognition Overall Cognitive Status: Within Functional Limits Arousal/Alertness: Appropriate responses to stimuli Mood/Behavior: Alert Orientation Level: Oriented X4 Single Step Commands: Consistently Multi-Step Commands: Consistently Method of Communication: Verbal Vision - Basic Assessment Baseline Vision: Glasses reading Current Vision: Intact Visual History: Glaucoma Tracking: Intact Right Upper Extremity Examination RUE ROM Assessment RUE Assessment: Within Functional Limits Manual Muscle Testing - RUE: Within functional limits Sensation Light Touch: Right Upper Extremity: Intact Left Upper Extremity Examination LUE ROM Assessment LUE Assessment: Within Functional Limits Manual Muscle Testing - LUE: Within functional limits Sensation Light Touch: Left Upper Extremity: Intact Right Lower Extremity Examination RLE ROM Assessment RLE Assessment: Within Functional Limits Manual Muscle Testing - RLE: Within functional limits Sensation Light Touch: Right Lower Extremity: Intact Left Lower Extremity Examination LLE ROM Assessment LLE Assessment: Within Functional Limits Manual Muscle Testing: Within functional limits Sensation Light Touch: Left Lower Extremity: Intact Bed Mobility Bed Mobility Exam: Supine to Sit Level of [place]: Stand-by assist Physical/Nonphysical Assist: HOB elevated, Supervision Bed Mobility Exam: Sit to Supine Level of [place]: Stand-by assist Physical/Nonphysical Assist: Supervision, HOB elevated Transfers Transfer Exam: Sit to stand Level of [place]: Stand-by assist Physical/Nonphysical Assist: Supervision Transfer Exam: Stand to Sit Level of [place]: Stand-by assist Physical/Nonphysical Assist: Supervision Balance Postural Appearance Posture: Within Functional Limits Static Sitting Balance Static Sitting-Level of Assistance: Independent Dynamic Sitting Balance Level of Assistance: Standby assisst Static Standing Balance Static Standing-Level of Assistance: Standby assist Dynamic Standing Balance Dynamic Standing Level of Assistance: Standby assist Self-Care Interventions Self Care/Home Management (ADLs) Time Entry: 10 Self-Care Interventions: OT provides CGA for all LB BADL 2/2 pt compromised truncal mobility and eccentrics as well as delayed righing/protective reaction due to pt endorsing weakness; with this assist pt better able to demonstrate self-recruitment during static sit with ability to participate in simulated grooming BADL in dynamic stand. Pt able to plan and sequence BADL task appropriately with normal understanding of item use and recognition. OT educates pt and pt daughter on the importance ofenergy conservation and supervision (initial) when participating in BADL (showering) to promote safe ADL participation and to decrease risk of falls. OT educates pt on importance of seated UB/LB dressing as he recovers as well as acquiring a shower chair/TTB to promote safe bathing. Pt and daughterverbalize understanding. Community Re-entry: Training provided to physical activity for the purpose of supporting endurance-based training to improve health and decrease risk of health decline in setting of prolonged hospital-based recover. Patient engaged in 1 of 3 prescribed daily walks to support increased activity in daily routine, with patient achieving a distance of 200 feet with Stand by assist with intermittent periods of CGA due to slower marv and some wall/furniture support. Patient required 2 brief standing OT providing training for self- assessment of RPE educating pt to take standing/seated rest as RPEreaches 6 or 7. Pt verbalizes understanding. Additionally, patient demonstrates slowed pacing and marv with mobility, limiting ability to rapidly access exit routes in home, bathroom if experiencing bladder/bowel urgency, and other home safety scenarios. Standardized Assessments [facility] 6-Click Daily Activities Help from Other: Don/Doff Regular Lower Body Clothings: Little Help From Other: Bathing: Little Help From Other: Toileting: None Help From Other: Don/Doff Upper Body Clothings: None Help From Other: Grooming: None Help From Other: Eating Meals: None [facility] 6 Click - Daily Activities Score: 22 Assessment Pt responds well to tx; benefits from education regarding RPE and compensatory strategies. Will continue to benefit from OT while in house to address goals below. OT Findings: Impaired ADL performance, Decreased endurance/ventilation/gas exchange, Impaired IADL performance, Impaired postural/trunk control Rehab Potential: Good, to achieve stated therapy goals Eval Complexity Occupational Profile: Expanded review of medical/therapy records and additional review of physical,cognitive, or psychosocial history Performance Deficits: Activities of daily living (ADLs), Instrumental activities of daily living (IADLs), Habits, Routines, Roles Clinical Decision Making: Low Overall Eval complexity: Moderate OT Recommendations Discharge Destination: Home with assistance, Home health OT, Home health PT Discharge Equipment: Patient owns appropriate equipment Plan Planned OT Interventions ADL retraining, IADL retraining, Balance training, Bed mobility Training, Functional mobility OT Frequency 2 - 5 times per week OT Duration 2 weeks Goals OT GOAL DETAILS Time Frame OT Goal 1: Pt will demonstrate RPE during BADL IND 2 weeks OT Goal 2: Pt will demonstrate 15 minutes of OOB BADL with SBA and x1 brief rest 2 weeks OT Goal 3: Pt will demonstrate dynamic reach during grooming in standing with SBA and LRAD 2 weeks Written by Idalia Hitchcock on 12/16/24 at 5:36 PM. * Procedures - Cathi Antonio RN - 12/16/2024 11:22 AM EDTAssociated Order(s): Insert peripheral IV Insert peripheral IV Performed by: Cathi Antonio, RN Authorized by: Aury Bell PA Hand hygiene: Hand hygiene performed prior to insertion Inserted using aseptic techniques: Yes Preparation: Skin prepped with alcohol Orientation: Left Location: Forearm Catheter placed: Peripheral IV Catheter size: 20g/1.16in Line Technique: Ultrasound Guidance Number of attempts: 1 IV flushes: Without difficulty and positive blood return noted and IV luer locked Patient tolerance: Patient tolerated the procedure well, there were no complications and age appropriate response IV site covered with: Transparent semipermeable dressing * Madalyn Sheikh, PharmD - 12/16/2024 9:59 AM EDT Images from the original note were not included. [id number] Dofetilide IMPORTANT WARNING: Dofetilide can cause your heart to beat irregularly. You will need to be in a hospital or another place where you can be monitored closely by your doctor for at least 3 days when you are started or restarted on dofetilide. It is important to read the patient information provided to you every time you begin therapy with dofetilide. WHY is this medicine prescribed? Dofetilide is used to treat an irregular heartbeat (including atrial fibrillation or atrial flutter). It is in a class of medications called antiarrhythmics. It improves your heart rhythm by relaxingan overactive heart. HOW should this medicine be used? Dofetilide comes as a capsule to take by mouth. It is usually taken twice a day, but may be taken once a day in people with certain conditions. Follow the directions on your prescription label carefully, and ask your doctor or pharmacist to explain any part you do not understand. Take dofetilide exactly as directed. Do not take more or less of it or take it more often than prescribed by your doctor. Dofetilide controls abnormal heart rhythms but does not cure them. Continue to take dofetilide evenif you feel well. Do not stop taking dofetilide without talking to your doctor. Are there OTHER USES for this medicine? This medication is sometimes prescribed for other uses; ask your doctor or pharmacist for more information. What SPECIAL PRECAUTIONS should I follow? Before taking dofetilide, ? tell your doctor and pharmacist if you are allergic to dofetilide, any other medications, or any of the ingredients in dofetilide capsules. Ask your pharmacist or check the asphalt spreader's patient information for a list of the ingredients. ? tell your doctor if you are taking cimetidine (Tagamet), dolutegravir (Tivicay), hydrochlorothiazide (Microzide, Oretic), hydrochlorothiazide and triamterene (Dyazide, Maxzide), ketoconazole (Nizoral), megestrol (Megace), prochlorperazine (Compro, Procomp), trimethoprim (Primsol), trimethoprim and sulfamethoxazole (Bactrim, Septra, Sulfatrim), and verapamil (Calan, Covera, Verelan). Your doctorwill probably tell you not to take dofetilide if you are taking one or more of these medications. ? tell your doctor if you have or have ever had long QT syndrome (condition that increases the riskof developing an irregular heartbeat that may cause fainting or sudden ), or kidney disease. ? some medications should not be taken with dofetilide. Make sure you have discussed any medications you are currently taking or plan to take before starting dofetilide with your doctor and pharmacist. Before starting, stopping, or changing any medications while taking dofetilide, please get the advice of your doctor or pharmacist. ? the following nonprescription products may interact with dofetilide: cimetidine, cannabis. Be sure to let your doctor and pharmacist know that you are taking these medications before you start taking dofetilide. Do not start any of these medications while taking dofetilide without discussing withyour healthcare provider. ? tell your doctor if you have excessive diarrhea, sweating, vomiting, loss of appetite, or decreased thirst or a low level of potassium in your blood, and if you have or have ever had have heart or liver disease. ? tell your doctor if you are , plan to become , or are breast- feeding. If you become while taking dofetilide, call your doctor. What SPECIAL DIETARY instructions should I follow? Talk to your doctor about eating grapefruit or drinking grapefruit juice while taking dofetilide. What should I do IF I FORGET to take a dose? Take the missed dose as soon as you remember it. However, if it is almost time for your next dose, skip the missed dose and continue your regular dosing schedule. Do not take a double dose to make upfor a missed one. What SIDE EFFECTS can this medicine cause? If you experience any of the following symptoms, call your doctor immediately: ? fast, pounding, or irregular heartbeat ? rash ? severe diarrhea ? dizziness or fainting ? unusual sweating ? vomiting ? loss of appetite ? increased thirst (drinking more than normal) If you experience a serious side effect, you or your doctor may send a report to the Food and Drug Administration's (FDA) MedWatch Adverse Event Reporting program online (https://www.fda.gov/Safety/MedWatch) or by phone ( ). What should I know about STORAGE and DISPOSAL of this medication? Keep this medication in the container it came in, tightly closed, and out of reach of children. Store it at room temperature and away from excess heat and moisture (not in the bathroom). Dispose of unneeded medications in a way so that pets, children, and other people cannot take them.Do not flush this medication down the toilet. Use a medicine take-back program. Talk to your pharmacist about take-back programs in your community. Visit the FDA's Safe Disposal of Medicines website h ttps://goo.gl/c4Rm4p for more information. Keep all medication out of sight and reach of children as many containers are not child-resistant. Always lock safety caps. Place the medication in a safe location - one that is up and away and out of their sight and reach. https://www.upandaway.org What should I do in case of OVERDOSE? In case of overdose, call the poison control helpline at . Information is also available online at https://www.poisonhelp.org/help. If the victim has collapsed, had a seizure, has trouble breathing, or can't be awakened, immediately call emergency services at 371. What OTHER INFORMATION should I know? Keep all appointments with your doctor and the laboratory. Your heart rhythm should be checked regularly to determine your response to dofetilide. Your doctor will also want to follow your kidney function and blood level of potassium closely while you are taking dofetilide. Do not let anyone else take your medication. Ask your pharmacist any questions you have about refilling your prescription. Keep a written list of all of the prescription and nonprescription (iswl-vjk-wliagko) medicines, vitamins, minerals, and dietary supplements you are taking. Bring this list with you each time you visit a doctor or if you are admitted to the hospital. You should carry the list with you in case of raheel rgencies. Brand Name(s): ? This report on medications is for your information only, and is not considered individual patient advice. Because of the changing nature of drug information, please consult your physician or pharmacist about specific clinical use. The [employer] represents that the information provided hereunder was formulated with a reasonable standard of care, and in conformity with professional standards in the field. The [employer] makes no representations or warranties, express or implied, including, but not limited to, any implied warranty of merchantability and/or fitness for a particular purpose, with respect to such information and specifically disclaims all such warranties. Users are advised that decisions regarding drug therapy are complex medical decisions requiring the independent, informed decision of an appropriate health palliative care nurse practitioner, and the information is provided for informational purposes only. The entire monograph for a drug should be reviewed for a thorough understanding of the drug's actions, uses and side effects. The [employer] does not endorse or recommend the use of any drug.The information is not a substitute for medical care. AHFS?? Patient Medication Information?. ?? Copyright, 2023. The [employer]??, [address], [address], [place], [place]. All Rights Reserved. Duplication for commercial use must be authorized by [facility]. Selected Revisions: October 24, 2023. AHFS?? Patient Medication Information?. ?? Copyright, 2024 * Madalyn Sheikh PharmD - 12/16/2024 9:59 AM EDT Images from the original note were not included. Rivaroxaban - Video Understand that Rivaroxaban is an oral medication taken to break up blood clots caused by deep veinthrombosis or atrial fibrillation, and to keep the blood thin. Learn how to use and store Rivaroxaban and the possible side effects to be aware of. To view the video go to this web address: https://Hitlab/4cmVwfq Or, scan this QR code with your smart phone ?? [facility] * Madalyn Sheikh PharmD - 12/16/2024 9:59 AM EDT Images from the original note were not included. [id number] Rivaroxaban IMPORTANT WARNING: If you have atrial fibrillation (a condition in which the heart beats irregularly, increasing the chance of clots forming in the body, and possibly causing strokes) and are taking rivaroxaban to helpprevent strokes or serious blood clots, you are at a higher risk of having a stroke after you stop taking this medication. Do not stop taking rivaroxaban without talking to your doctor. Continue to take rivaroxaban even if you feel well. Be sure to refill your prescription before you run out of medication so that you will not miss any doses of rivaroxaban. If you need to stop taking rivaroxaban, your doctor may prescribe another anticoagulant (''blood thinner'') to help prevent a blood clot from forming and causing you to have a stroke. If you have epidural or spinal anesthesia or a spinal puncture while taking a 'blood thinner' such as rivaroxaban, you are at risk of having a blood clot form in or around your spine that could causeyou to become paralyzed. Tell your doctor if you have an epidural catheter that is left in your body or have or have ever had repeated epidural or spinal punctures, spinal deformity, or spinal surgery. Tell your doctor and pharmacist if you are taking medications that may cause bleeding including anticoagulants (blood thinners) such as warfarin (Jantoven), heparin, or other medications to treat or prevent blood clots and aspirin and other nonsteroidal anti-inflammatory drugs (NSAIDs) such as ibu profen (Advil, Motrin, others), indomethacin (Indocin), ketoprofen, and naproxen (Aleve, Anaprox, others). If you experience any of the following symptoms, call your doctor immediately: back pain, muscle weakness (especially in your legs and feet), numbness or tingling (especially in your legs), loss of control of your bowels or bladder, or inability to move your legs. Talk to your doctor about the risk of taking rivaroxaban. Your doctor or pharmacist will give you the asphalt spreader's patient information sheet (Medication Guide) when you begin treatment with rivaroxaban and each time you refill your prescription. Read the information carefully and ask your doctor or pharmacist if you have any questions. You can also visit the Food and Drug Administration (FDA) website (https://www.fda.gov/downloads/Drugs/DrugSafety/STF043215.pdf) or the asphalt spreader's website to obtain the Medication Guide. WHY is this medicine prescribed? Rivaroxaban is used to treat deep vein thrombosis (DVT; a blood clot, usually in the leg) and pulmonary embolism (PE; a blood clot in the lung) in adults. Rivaroxaban is also used to prevent DVT and PE from happening again after initial treatment is completed in adults. It is also used to help prevent strokes or serious blood clots in adults who have atrial fibrillation (a condition in which the heart beats irregularly, increasing the chance of clots forming in the body, and possibly causing strokes) that is not caused by heart valve disease. Rivaroxaban is also used to prevent DVT and PE in adults who are having hip replacement or knee replacement surgery or in people who are hospitalized for serious illnesses and are at risk of developing a clot due to decreased ability to move around or other risk factors. It is also used along with aspirin to lower the risk of a heart attack, stroke, or in adults with coronary artery disease (narrowing of the blood vessels that supply blood t o the heart) or peripheral arterial disease (poor circulation in the blood vessels that supply blood to the arms and legs). Rivaroxaban is also used to treat and prevent DVT and PE from happening again in children and certain infants who have received at least 5 days of initial anticoagulation (blood thinner) treatment. It is also used to prevent DVT and PE after heart surgery in children 2 yearsof age or older who have congenital heart disease (abnormality in the heart that develops before ). Rivaroxaban is in a class of medications called factor Xa inhibitors. It works by blocking theaction of a certain natural substance that helps blood clots to form. HOW should this medicine be used? Rivaroxaban comes as a tablet and a suspension (liquid) to take by mouth. When rivaroxaban is used to treat DVT or PE in adults, it is usually taken with food twice daily for 21 days, then once dailywith food. When rivaroxaban is used to prevent DVT or PE in adults, it is usually taken once daily with or without food after at least 6 months of anticoagulation (blood thinner) treatment. When rivar oxaban is used to prevent a stroke in those who have atrial fibrillation, it is usually taken once daily with the evening meal. When rivaroxaban is taken to prevent DVT and PE after hip or knee replacement surgery, it is usually taken with or without food once daily. The first dose should be taken at least 6 to 10 hours after surgery. Rivaroxaban is usually taken for 35 days after a hip replacement surgery and for 12 days after knee replacement surgery. When rivaroxaban is taken to prevent DVT and PE in adults who are hospitalized for serious illnesses and are at risk of developing a clot dueto decreased ability to move around, it is usually taken with or without food once daily starting wh en you are in the hospital and then continuing for a total of 31 to 39 days. When rivaroxaban is taken along with aspirin in adults with coronary artery disease or peripheral arterial disease, it is usually taken twice daily with or without food. When rivaroxaban is used in children and infants to treat or prevent DVT or PE, it is usually given 1 to 3 times a day with food after at least 5 days of anticoagulation (blood thinner) treatment. When rivaroxaban is taken in children 2 years of age orolder who have congenital heart disease, it is usually given 1 to 3 times a day with or without food after heart surgery. Take rivaroxaban at around the same time(s) every day. Follow the directions on your prescription label carefully, and ask your doctor or pharmacist to explain any part you do not understand. Take rivaroxaban exactly as directed. Do not take more or less of it or take it more often than prescribed by your doctor. For adults, if you are unable to swallow the tablets, you can crush them and mix with applesauce. Swallow the mixture right after you prepare it. Rivaroxaban can also be given in certain types of feeding tubes. Ask your doctor if you should take this medication in your feeding tube. Follow your doctor's directions carefully. For children taking rivaroxaban tablets, swallow the tablets whole; do not split them. If you or your child vomits or spits up within 30 minutes of taking a dose of rivaroxaban oral suspension, take another full dose as soon as possible after the vomiting episode and then take your next dose at the regularly scheduled time. To measure rivaroxaban oral suspension, follow these steps: ? Use the oral syringe that came with the medication for measuring the liquid. Do not use a household spoon to measure your dose. Household teaspoons are not accurate measuring devices, and you may receive too much medication or not enough medication if you measure your dose with a household teaspoon. ? Shake the bottle gently for 10 seconds before use. If there are remaining granules at the bottom of the bottle, shake gently again for another 10 seconds. Do not shake the bottle to avoid foaming. ? Remove the bottle cap by pushing down on the cap, then turn it counterclockwise (to the left). Donot remove the adaptor from the top of the bottle. ? Push all the air from the oral syringe into the bottle by pushing down on the plunger. Then insert the open tip of the oral syringe into the adaptor. ? While holding the oral syringe in place, carefully turn the bottle upside down. Draw some of the medication out of the bottle into the oral syringe by pulling back on the plunger. Be careful not topull the plunger all the way out. ? You will see a small amount of air near the end of the plunger in the oral syringe. Push on the plunger so the medication goes back into the bottle and the air disappears. Pull back on the plunger to draw your correct medication dose into the oral syringe. ? While still holding the oral syringe in the bottle, carefully turn the bottle upwards so the syringe is on top. Remove the oral syringe from the bottle neck adaptor without pushing on the plunger. Take the medication right after you draw it into the oral syringe. ? Place the open tip of the oral syringe into one side of your child's mouth and push on the plunger slowly as the liquid goes into your child's mouth; have your child swallow the medication slowly as it goes into their mouth. ? If your dose is more than 5 mL, you will need to use the same syringe more than one time and you will need to repeat steps 3 through 7. ? Leave the adaptor in the bottle. Place the cap back on the bottle and turn it clockwise (to the right) to tighten it. ? Rinse the oral syringe with clean tap water and allow it to air dry after each use. Continue to take rivaroxaban even if you feel well. Do not stop taking rivaroxaban without talking to your doctor. If you stop taking rivaroxaban, your risk of a blood clot may increase. Are there OTHER USES for this medicine? This medication may be prescribed for other uses; ask your doctor or pharmacist for more information. What SPECIAL PRECAUTIONS should I follow? Before taking rivaroxaban, ? tell your doctor and pharmacist if you are allergic to rivaroxaban, any other medications, or anyof the ingredients in rivaroxaban tablets. Ask your pharmacist for a list of the ingredients. ? tell your doctor and pharmacist what other prescription and nonprescription medications, vitamins, and nutritional supplements you are taking or plan to take. Your doctor may need to change the doses of your medications or monitor you carefully for side effects. ? tell your doctor what herbal products you are taking, especially Inocencio's wort. ? tell your doctor if you have an artificial heart valve or recently noticed any unusual bruising or bleeding. Your doctor will probably tell you not to take rivaroxaban. ? tell your doctor if you have or have ever had any type of bleeding problem, antiphospholipid syndrome (APS; a condition that causes blood clots), bleeding or an ulcer in your stomach or intestine, or kidney or liver disease. ? tell your doctor if you are , plan to become , or are . If you become while taking rivaroxaban, call your doctor. ? talk to your doctor about the risks and benefits of taking rivaroxaban if you are 75 years of ageor older. ? if you are having surgery, including dental surgery, tell the doctor or dentist that you are taking rivaroxaban. Your doctor may tell you to stop taking rivaroxaban before the surgery or procedure.Your doctor will tell you when you should start taking rivaroxaban again after your surgery. What SPECIAL DIETARY instructions should I follow? Unless your doctor tells you otherwise, continue your normal diet. What should I do IF I FORGET to take a dose? Adults: ? If you take rivaroxaban once a day, take the missed dose as soon as you remember it on that day. Resume your regular dosing schedule the next day. ? If you take rivaroxaban twice a day for the treatment of a DVT or PE, take the missed dose as soon as you remember it on that day. You may take 2 doses at the same time to make up for the missed dose. Resume your regular dosing schedule on the next day. ? If you have CAD or PAD and take rivaroxaban twice a day to reduce the risk of DVT and PE and saumya dose, just continue your regular dosing schedule. Do not take a double dose to make up for a missed one. Infants and children: ? If you take rivaroxaban once a day, take the missed dose as soon as you remember it on that day. Resume your regular dosing schedule the next day. Do not take a double dose to make up for a missed one. ? If you take rivaroxaban twice a day, take the missed morning dose as soon as you remember it on that day. You may take 2 doses at the same time in the evening to make up for the missed morning dose. Resume your regular dosing schedule on the next day ? If you take rivaroxaban three times a day and miss a dose, skip the missed dose and continue yourregular dosing schedule. Do not take a double dose to make up for a missed one. What SIDE EFFECTS can this medicine cause? Some side effects can be serious. If you experience any of these symptoms or those listed in the IMPORTANT WARNING section, call your doctor immediately: ? bloody, black, or tarry stools ? pink, or brown urine ? coughing up or vomiting blood or material that looks like coffee grounds ? frequent nosebleeds ? bleeding from your gums ? heavy menstrual bleeding ? weakness ? tiredness ? headache ? dizziness or fainting ? blurred vision ? pain in arm or leg ? rash ? itching ? difficulty breathing or swallowing ? hives ? pain or swelling at wound sites ? decreased urination ? swelling in your legs, feet, or ankles Rivaroxaban prevents blood from clotting normally so it may take longer than usual for you to stop bleeding if you are cut or injured. This medication may also cause you to bruise or bleed more easily. Call your doctor right away if bleeding or bruising is unusual. Rivaroxaban may cause other side effects. Call your doctor if you have any unusual problems while taking this medication. If you experience a serious side effect, you or your doctor may send a report to the Food and Drug Administration's (FDA) MedWatch Adverse Event Reporting program online (https://www.fda.gov/Safety/MedWatch) or by phone ( ). What should I know about STORAGE and DISPOSAL of this medication? Keep this medication in the container it came in, tightly closed, and out of reach of children. Store it at room temperature and away from excess heat and moisture (not in the bathroom). Keep all medication out of sight and reach of children as many containers are not child-resistant. Always lock safety caps. Place the medication in a safe location - one that is up and away and out of their sight and reach. https://www.upandClinicient.org Dispose of unneeded medications in a way so that pets, children, and other people cannot take them.Do not flush this medication down the toilet. Use a medicine take-back program. Talk to your pharmacist about take-back programs in your community. Visit the FDA's Safe Disposal of Medicines website h ttps://goo.gl/c4Rm4p for more information. What should I do in case of OVERDOSE? In case of overdose, call the poison control helpline at . Information is also available online at https://www.poisonhelp.org/help. If the victim has collapsed, had a seizure, has trouble breathing, or can't be awakened, immediately call emergency services at 911. Symptoms of overdose may include the following: ? unusual bleeding or bruising ? bloody, black, or tarry stools ? blood in urine ? coughing up or vomiting blood or material that looks like coffee grounds What OTHER INFORMATION should I know? Keep all appointments with your doctor and the laboratory. Your doctor may order certain lab tests to check your body's response to rivaroxaban. Do not let anyone else take your medication. Your prescription is probably not refillable. Keep a written list of all of the prescription and nonprescription ([id number]) medicines, vitamins, minerals, and dietary supplements you are taking. Bring this list with you each time you visit a doctor or if you are admitted to the hospital. You should carry the list with you in case of raheel rgencies. Brand Name(s): ? Xarelto?? This report on medications is for your information only, and is not considered individual patient advice. Because of the changing nature of drug information, please consult your physician or pharmacist about specific clinical use. The [employer] represents that the information provided hereunder was formulated with a reasonable standard of care, and in conformity with professional standards in the field. The [employer] makes no representations or warranties, express or implied, including, but not limited to, any implied warranty of merchantability and/or fitness for a particular purpose, with respect to such information and specifically disclaims all such warranties. Users are advised that decisions regarding drug therapy are complex medical decisions requiring the independent, informed decision of an appropriate health palliative care nurse practitioner, and the information is provided for informational purposes only. The entire monograph for a drug should be reviewed for a thorough understanding of the drug's actions, uses and side effects. The [employer] does not endorse or recommend the use of any drug.The information is not a substitute for medical care. AHFS?? Patient Medication Information?. ?? Copyright, 2023. The [employer]??, [address], [address], [place], [place]. All Rights Reserved. Duplication for commercial use must be authorized by [facility]. Selected Revisions: July 19, 2022. AHFS?? Patient Medication Information?. ?? Copyright, 2024 * Consults - Carmen Harris RD - 12/16/2024 7:41 AM EDTAssociated Order(s): IP CONSULT TO NUTRITION SERVICES Adult Nutrition Evaluation Note Hazel Manning 84 y.o. female CSN: [id number] Room/Bed 662/662A Nutrition evaluation type: assessment Reason for evaluation: provider consult Hospital course: 84 y.o. female who was [facility]. Past medical/ surgical history: Past Medical History[1] Surgical History[2] Social history: Social History[3] Additional comments: RD visited pt on 12/15/24 shortly after admission, spouse and family member present. Pt reports that her appetite has been declined since PM placement ~3 weeks [facility] (11/22/24). Pt denies n/v/d/c. UWL during this time ~8% (severe), prior BW 160# per pt. Pt received snack of fruit/cottage cheese during interview, RD briefly discussed diet orders. Vitals and Basic Assessment: BP: 137/79 Temp: 36.4 ??C (97.6 ??F) Oxygen Therapy: Supplemental oxygen [place] Coma Scale Score: 15 [place] Scale Score: 22 Allergies: NKFA per pt Medications: Current Scheduled Medications[4] Current PRN Medications[5] Meds were reviewed: Yes Labs: Labs in last 18 hours CBC WBC 7.61 Hb 13.5 Plt 347 Hct 40.9 ANC 5.30 INR ??, PTT ??, Anti-Xa ?? BMP Na 140 Cl 106 BUN 12 Glu 127 (H) K 4.3 Co2 20 (L) Cr 0.79 Ca 8.9 iCa ?? Mg ??, Phos ?? Lactate ?? LFT AST 45 (H) AlkPhos 53 T Prot 6.5 ALK 26 Bili 0.8 Alb ?? D.Bili ?? Anthropometrics: Height: 165.1 cm (5' 5 ) Weight: 66.6 kg (146 lb 13.2 oz) BMI (Calculated): 24.43 [place] Body Weight (kg): 56.8 Percent [place] Body Weight: 117 Wt Readings from Last 10 Encounters: 12/16/24 66.6 kg (146 lb 13.2 oz) 02/14/20 67.1 kg (147 lb 15.9 oz) 01/03/20 66.2 kg (146 lb 0.2 oz) Estimated Needs: Metabolic Cart Study Results: Current Nutrition Intake: Diet Supplements: None Diet Order: NPO Diet Experience and Nutrition History: Diet Education Provided: Will monitor Pertinent home medications: atorvastatin, Vit D3, dofetilide, [place], metoprolol, omeprazole, ondansetron, rivaroxaban, Mg OTC Scientologist needs: Nutrition Focused Physical Exam: Physical exam performed on (date): 12/15/24 Temples (muscles): None Clavicle (muscle): Mild Shoulder (muscle): None Interosseous (muscle): Mild Calf (muscle): None Orbital (fat): None Triceps (fat): None Assessment of Malnutrition: Malnutrition Identified: Yes Meets Criteria For: Severe malnutrition In Context Of: Acute illness/ injury Based On: Severe weight loss, Mild muscle mass loss Present on Admission: Yes Nutrition Problem: Unintended weight loss related to insufficient energy intake as evidenced by prior BW 160# as per pt, current wt 146# . Status of Nutrition Diagnosis: New Nutrition Interventions and Recommendations: -NPO per team -Recommend Cardiac diet when PO resumes -Add Boost VHC once daily when diet advances past CL -Encourage PO intake, document in flowsheet Nutrition Monitoring and Goals: -Nutrition to resume as appropriate -Wt maintenance -PO intake >/= 50% most meals -Nutrition labs trending WDL Acuity Level: [address], LD [1] Past Medical History: Diagnosis Date Arthritis Enterocolitis due to Clostridium difficile, not specified as recurrent C. difficile diarrhea GERD (gastroesophageal reflux disease) 12/15/2024 HTN (hypertension) 12/15/2024 Migraine, unspecified, not intractable, without status migrainosus Migraine Nephrolithiasis Paroxysmal atrial fibrillation (CMS/HCC) 12/15/2024 Personal history of other diseases of the musculoskeletal system and connective tissue History of osteoporosis Personal history of urinary calculi History of renal calculi S/P placement of cardiac pacemaker 12/15/2024 [2] Past Surgical History: Procedure Laterality Date HEMORRHOID SURGERY NO PAST SURGERIES N/A No history of surgery from [facility] SKIN CANCER EXCISION N/A [3] Social History Tobacco Use Smoking status: Never Vaping Use Vaping status: Never Used [4] atorvastatin, 40 mg, Oral, Nightly cetirizine, 10 mg, Oral, Nightly cholecalciferol, 1,000 Units, Oral, Daily docusate sodium, 100 mg, Oral, BID dofetilide, 250 mcg, Oral, q12h heparin (porcine), 5,000 Units, Subcutaneous, q8h AUDELIA magnesium oxide, 400 mg, Oral, Daily metoprolol tartrate, 25 mg, Oral, BID pantoprazole, 40 mg, Oral, Daily senna, 17.2 mg, Oral, Nightly Insert peripheral IV, , , Once AND Saline lock IV, , , Once AND sodium chloride, 10 mL, Intravenous, q12h AND sodium chloride, 10 mL, Intravenous, PRN [5] PRN medications: calcium carbonate, nitroglycerin, simethicone, Insert peripheral IV AND Saline lock IV AND sodium chloride AND sodium chloride * Care Plan - Maryjane Calvert RN - 12/15/2024 8:38 PM EDT Problem: Adult Inpatient Plan of Care Goal: Plan of Care Review Outcome: Ongoing, Progressing Flowsheets (Taken 12/15/2024 1849 by Young Osman, RN) Plan of Care Reviewed With: patient Goal: Patient-Specific Goal (Individualized) Outcome: Ongoing, Progressing Flowsheets (Taken 12/15/2024 1021 by Young Osman, RN) Patient/Family-Specific Goals (Include Timeframe): Patient will remain free from falls/Injury during shift Individualized Care Needs: Safety Anxieties, Fears or Concerns: None stated Goal: Absence of Hospital-Acquired Illness or Injury Outcome: Ongoing, Progressing Intervention: Identify and Manage Fall Risk Flowsheets (Taken 12/15/20241848 by Young Osman RN) Safety Promotion/Fall Prevention: activity supervised clutter-free environment maintained fall prevention program maintained nonskid shoes/slippers when out of bed room organization consistent safety round/check completed Intervention: Prevent Skin Injury Flowsheets (Taken 12/15/2024 1021 by Young Osman RN) Body Position: turned left legs elevated lower extremity elevated weight shifting Intervention: Prevent and Manage VTE (Venous Thromboembolism) Risk Flowsheets (Taken 12/15/20241999) VTE Prevention/Management: bilateral SCDs (sequential compression devices) on Intervention: Prevent Infection Flowsheets (Taken 12/15/20241848 by Young Osman RN) Infection Prevention: environmental surveillance performed hand hygiene promoted rest/sleep promoted Goal: Optimal Comfort and Wellbeing Outcome: Ongoing, Progressing Intervention: Monitor Pain and Promote Comfort Flowsheets (Taken 12/15/20241848 by Young Osman RN) Pain Management Interventions: position adjusted quiet environment facilitated relaxation techniques promoted rest Intervention: Provide Person-Centered Care Flowsheets (Taken 12/15/20241848 by Young Osman RN) Trust Relationship/Rapport: care explained choices provided emotional support provided empathic listening provided questions answered questions encouraged reassurance provided thoughts/feelings acknowledged Problem: Cardiac Output Decreased Goal: Effective Cardiac Output Outcome: Ongoing, Progressing Intervention: Optimize Cardiac Output Flowsheets Taken 12/15/20241999 by Maryjane Calvert RN VTE Prevention/Management: bilateral SCDs (sequential compression devices) on Taken 12/15/20241848 by Young Osman RN Stabilization Measures: prepared for surgical intervention provider notified Taken 12/15/2024 1021 by Young Osman RN Head of Bed (HOB) Positioning: HOB elevated Problem: Surgery Nonspecified Goal: Absence of Infection Signs and Symptoms Outcome: Ongoing, Progressing Intervention: Prevent or Manage Infection Flowsheets Taken 12/15/20241848 by Young Osman RN Infection Management: aseptic technique maintained Fever Reduction/Comfort Measures: lightweight bedding Taken 12/15/2024 1021 by [place], Young C, RN Isolation Precautions: precautions maintained * Care Plan - Young Osman RN - 12/15/2024 6:51 PM EDT Problem: Adult Inpatient Plan of Care Goal: Plan of Care Review Outcome: Ongoing, Progressing Flowsheets (Taken 12/15/20241848) Plan of Care Reviewed With: patient Goal: Patient-Specific Goal (Individualized) Outcome: Ongoing, Progressing Flowsheets (Taken 12/15/2024 1021) Patient/Family-Specific Goals (Include Timeframe): Patient will remain free from falls/Injury during shift Individualized Care Needs: Safety Anxieties, Fears or Concerns: None stated Goal: Absence of Hospital-Acquired Illness or Injury Outcome: Ongoing, Progressing Intervention: Identify and Manage Fall Risk Flowsheets (Taken 12/15/20241848) Safety Promotion/Fall Prevention: activity supervised clutter-free environment maintained fall prevention program maintained nonskid shoes/slippers when out of bed room organization consistent safety round/check completed Intervention: Prevent Skin Injury Flowsheets (Taken 12/15/2024 1021) Body Position: turned left legs elevated lower extremity elevated weight shifting Intervention: Prevent and Manage VTE (Venous Thromboembolism) Risk Flowsheets (Taken 12/15/2024 1600) VTE Prevention/Management: bilateral compression stockings off foot pump device off SCDs (sequential compression devices) off medication Intervention: Prevent Infection Flowsheets (Taken 12/15/20241848) Infection Prevention: environmental surveillance performed hand hygiene promoted rest/sleep promoted Goal: Optimal Comfort and Wellbeing Outcome: Ongoing, Progressing Intervention: Monitor Pain and Promote Comfort Flowsheets (Taken 12/15/20241848) Pain Management Interventions: position adjusted quiet environment facilitated relaxation techniques promoted rest Intervention: Provide Person-Centered Care Flowsheets (Taken 12/15/20241848) Trust Relationship/Rapport: care explained choices provided emotional support provided empathic listening provided questions answered questions encouraged reassurance provided thoughts/feelings acknowledged Problem: Cardiac Output Decreased Goal: Effective Cardiac Output Outcome: Ongoing, Progressing Intervention: Optimize Cardiac Output Flowsheets Taken 12/15/20241848 Stabilization Measures: prepared for surgical intervention provider notified Taken 12/15/2024 1600 VTE Prevention/Management: bilateral compression stockings off foot pump device off SCDs (sequential compression devices) off medication Taken 12/15/2024 1021 Head of Bed (HOB) Positioning: HOB elevated Problem: Surgery Nonspecified Goal: Absence of Infection Signs and Symptoms Outcome: Ongoing, Progressing Intervention: Prevent or Manage Infection Flowsheets Taken 12/15/2024 1849 Infection Management: aseptic technique maintained Fever Reduction/Comfort Measures: lightweight bedding Taken 12/15/2024 1021 Isolation Precautions: precautions maintained * H&P - Aury Bell PA - 12/15/2024 1:23 PM EDT Reason for visit / Chief Complaint: Pericardial effusion History of present illness: Hazel Manning is a 84 y.o. female who was referred to us in consultation by Dr. Douglas in [place] secondary to a pericardial effusion. 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 She developed a hematoma following the procedure as well as a pleural effusion which reportedly improved. So she was put back on anticoagulation and discharged home. She came back to the hospital ~ 10 days later with recurrent symptomatic atrial fibrillation. It appears she was put on Tikosyn therapy at that time. Her pericardial effusion was again noted and she was scheduled to see Dr. Hernandez as an outpatient today. However, she returned to the hospital in [place] yesterday morning again with symptomatic A-fib. She was given IV metoprolol and placed on a diltiazem gtt and converted to an atrially paced rhythm. She did have a CT scan as well as an echocardiogram and her effusion was noted to be moderate but thankfully without signs of cardiac tamponade.She was transferred for possible pericardial window. Currently the patient only complaint is that she is sleepy. She was unable to sleep in the OSH lastnight. When she has her A-fib, she has nausea, dizziness with near-syncope, and shortness of breath. She denies any history of CAD though it is listed in her records. She states she has never had anystents or CABG. She also denies any history of diabetes, heart failure or stroke. Her chronic comorbid conditions that impact our treatment planning include: Cardiac Arrhythmia NYHA Classification: Class II: Mild symptoms with ordinary activity. Active Problems: Patient Active Problem List Diagnosis Date Noted Pericardial effusion 12/15/2024 Paroxysmal atrial fibrillation (CMS/HCC) 12/15/2024 HTN (hypertension) 12/15/2024 Hyperlipidemia 12/15/2024 GERD (gastroesophageal reflux disease) 12/15/2024 S/P placement of cardiac pacemaker 12/15/2024 Anxiety 12/15/2024 Nuclear sclerotic cataract of both eyes 01/26/2022 Glaucoma suspect of both eyes 01/26/2022 Dry eyes 01/26/2022 PMH Problem List[1] PSH Surgical History[2] Social History: Tobacco: Denies Alcohol: Denies Illicit drug use: Denies Family History: Non-contributory for this diagnosis Allergies: Allergies[3] Physical exam: Visit Vitals BP 138/63 (BP Location: Right arm, Patient Position: Sitting) Pulse 70 Temp 36.8 ??C (98.2 ??F) (Oral) SpO2 98% CONSTITUTIONAL: Pleasant WNWD elderly female comfortably in NAD HENMT: Head atraumatic, normocephalic, Normal hearing, Nares patent, Moist mucous membranes withoutpallor, normal dentition EYES: PERRLA. No scleral icterus or conjunctivitis. NECK: Supple. Nontender. No JVD. The trachea appears midline. No lymphademopathy PULM: Breath sounds clear throughout. Bilateral chest excursion noted. No retractions. CARDIAC: RRR, S1S2. No murmur, rubs, or gallop. Palpable DP and PT pulses noted bilaterally. No edema. Large hematoma over pacemaker site MUSK: No bony abnormalities; muscle strength intact GI: Abdomen soft, nontender, nondistended. BSA No HSM noted : deferred SKIN: No rashes or lesions. No cyanosis or clubbing. NEURO: Awake and oriented x3. Moves all extremities with purpose. PSYCH: Cooperative with care. Mood & affect congruent and appropriate to situation. Labs: pending Imaging: CT scan and Echo images are available in [facility]. Impression: Hazel Manning is an 84 yo female with PAF/bradycardia who underwent PPM 3 weeks ago and now with a moderate pericardial effusion. Pericardial Effusion - moderate with no evidence of tamponade - hemopericardium suspected in light of anticoagulation - CT and Echo films in [facility] - Films reviewed with Dr. Hernandez - Will ask Interventional Cardiology to evaluate for possible tap +/- drain placement Paroxysmal A-fib Tachy-carlos syndrome Chronic anticoagulation therapy - symptomatic - s/p PPM 11/22/2024 - Tikosyn initiated 12/01, will continue - Last dose of Xarelto 12/12 - continue PO metoprolol for rate control - can restart diltiazem gtt as needed HTN - continue metoprolol - monitor HLD - continue statin GERD - continue PPI Anxiety - monitor and treat as needed Plan: Consult Interventional Cardiology (Dr. Haque will review films) Continue to hold Xarelto. Will start heparin gtt if no intervention today [1] Patient Active Problem List Diagnosis Nuclear sclerotic cataract of both eyes Glaucoma suspect of both eyes Dry eyes Pericardial effusion [2] Past Surgical History: Procedure Laterality Date NO PAST SURGERIES N/A No history of surgery from [employer] [3] Allergies Allergen Reactions Amoxicillin Itching and Rash Acetaminophen Nausea Amiodarone Unknown - Patient states they do not know rxn details Apixaban Unknown - Patient states they do not know rxn details Metronidazole Unknown - Patient states they do not know rxn details Penicillins Unknown - Patient states they do not know rxn details Sulfacetamide Unknown - Patient states they do not know rxn details Sulfamethoxazole-Trimethoprim Unknown - Patient states they do not know rxn details documented in this encounter Plan of Treatment Not on file documented as of this encounter Procedures Procedure Name Priority Date/Time Associated Diagnosis Comments ECHO, ADULT TRANSTHORACIC LIMITED STAT 12/18/2024 12:45 PM EDT ECG ADULT STAT 12/17/2024 5:02 PM EDT CBC W/O DIFFERENTIAL Routine 12/17/2024 4:25 AM EDT BASIC METABOLIC PANEL, PLASMA Routine 12/17/2024 4:25 AM EDT XR CHEST 1 VIEW Routine 12/17/2024 1:31 AM EDT BODY FLUID CULTURE AND GRAM STAIN Routine 12/16/2024 3:24 PM EDT BODY FLUID CELL COUNT W/ MANUAL DIFFERENTIAL Routine 12/16/2024 3:06 PM EDT PROTEIN, TOTAL, BODY FLUID(SO) Routine 12/16/2024 3:06 PM EDT ALBUMIN,OTHER,MISC FLUID Routine 3:05 PM EDT GLUCOSE, BODY FLUID (SO) Routine 3:05 PM EDT TRIGLYCERIDES, BODY FLUIDS (SO) Routine 12/16/2024 3:05 PM EDT PERICARDIOCENTESIS Routine 12/16/2024 2: 54 PM EDT Pericardial effusion LACTATE DEHYDROGENASE TOTAL, BODY FLUID (SO) Routine 12/16/2024 2:46 PM EDT INSERT PERIPHERAL IV STAT 12/16/2024 11:22 AM EDT EXTRA TUBE LAVENDER TOP Routine 12/17/19 10:44 AM EDT EXTRA TUBES Routine 12/16/2024 10:44 AM EDT MAGNESIUM, PLASMA Routine 12/16/2024 10: 44 AM EDT HEMOGLOBIN A1C Routine 12/16/2024 10:44 AM EDT NON-GYNECOLOGIC CYTOLOGY Routine 8:03 AM EDT N-TERMINAL PROBNP, PLASMA Routine 2024 5:39 PM EDT CBC WITH AUTO DIFFERENTIAL Routine 12/15 5:39 PM EDT COMPREHENSIVE METABOLIC PANEL, PLASMA Routine 12/15/2024 5:39 PM EDT ECG ADULT Routine 12/15/2024 4:41 PM EDT XR CHEST 2 VIEWS Routine 12/15/2024 4:26 PM EDT documented in this encounter Results * ECHO, ADULT TRANSTHORACIC LIMITED (12/18/2024 12:45 PM EDT) BSA 1.79 m2 [facility] Height 165.1 [facility] Weight 71.7 [facility] LV V1 VTI 24.7 cm [facility] MV E Vmax 57.6 cm/s [facility] MV A Vmax 52.4 cm/s [facility] MV E/A 1.1 cm/s [facility] TR Vmax 223.5 cm/s [facility] RV s' Aaron 14.4 cm/s [facility] TAPSE 19 mm [facility] TR Max PG 20 mmHG [facility] LV V1 Vmax 133.0 cm/s [facility] Ao V2 VTI 29.4 cm [facility] Ao mean PG 5 mmHg [facility] Ao V2 Vmax 154.0 cm/s [facility] Ao max PG 9 mmHg [facility] AV VTI Index 0.84 [facility] MV dec time 230 ms [facility] MV P1/2t 67 ms [facility] MVA(P1/2t) 3.3 cm2 [facility] LV mean PG 3.0 mmHG [facility] LV V1 mean 80.3 cm/sec [facility] LV max PG 7.1 mmHg [facility] AV-pr VR 0.9 [facility] Ao V2 mean 101.0 cm/s [facility] IVSd 10 mm [facility] LVIDd 37 mm [facility] LVPWd 11 mm [facility] LV MASS(C)D 120 g [facility] CV ECHO LV MASS INDEX 67 g/m2 [facility] LV RWT 0.57 mm [facility] Ao Root Diam 32 mm [facility] LVIDs 23 mm [facility] LA dimension 33 mm [facility] LAV(MOD-4ch) 38 mL [facility] RA MOD 4Ch 19 mL [facility] JANAE 11 mL/m2 [facility] RV base 33 mm [facility] LV EDV(MOD-4ch) 36 mL [facility] LV ESV(MOD4ch) 16 mL [facility] EF(MOD-sp4) 56 % [facility] LAV(MOD-bp) Indexed 14 mL/m2 [facility] LAV(MOD-2ch) 12 mL [facility] LV EDV(MOD-2ch) 26 mL [facility] EDV(MOD-bp) 31 mL [facility] LV ESV(MOD2ch) 12 mL [facility] EF(MOD-sp2) 54 % [facility] ESV(MOD-bp) 14 mL [facility] EF(MOD-bp) 55 % [facility] LVLs ap2 4.5 mm [facility] RVSP 23 mmHg [facility] RAP systole 3 mmHg [facility] LV Lat e' Velocity 11.1 cm/s [facility] LV Sept e' Aaron 5.6 cm/s [facility] Lat E/e' 5.2 [facility] Sep E/e' 10.3 [facility] Avg E/e' 7.7 [facility] Anatomical Region Laterality Modality Echocardiography Narrative 12/18/2024 1:23 PM EDT Pericardium: Evidence of epicardial fat. No pericardial effusion. There is no recent study available for direct [id number] comparison. Left Ventricle The left ventricle is not well visualized, but is grossly normal in size. The left ventricular systolic function is normal. The diastolic function is normal. The left ventricular wall motion is normal. Right Ventricle The right ventricle is grossly normal in size. The right ventricular systolic function is normal. Right ventricular systolic pressure is normal (<35mmHg). Left Atrium The left atrial size is normal with an indexed volume of 16-34 mL/m2. The interatrial septum is intact with no evidence for an atrial septal defect. Right Atrium The right atrium was not well visualized. IVC/SVC Based on the IVC size and respiratory variation, the estimated right atrial pressure is 3mmHg. Mitral Valve The mitral valve was not well visualized. There is no mitral regurgitation. There is no mitral stenosis. Tricuspid Valve The tricuspid valve was not well visualized. There is trace tricuspid regurgitation. There is no tricuspid stenosis. Aortic Valve The aortic valve was not well visualized due to poor image quality. There is no valvular regurgitation. There is no hemodynamically significant valvular aortic stenosis. Pulmonic Valve The pulmonic valve was not well visualized. There is no pulmonic regurgitation. There is no pulmonic stenosis. Pericardium Evidence of epicardial fat. No pericardial effusion. Great Vessels The aortic root is normal in size. In the maximally visualized portion, the ascending aorta appears normal in size. The main pulmonary artery is not well visualized. Study Details A limited transthoracic echocardiogram using limited 2D, color flow Doppler and limited spectral Doppler imaging was performed. Height: 165.1 cm. Weight: 71.7 kg. BSA: 1.79 m2. Study Recommendation There is no recent study available for direct [id number] comparison. Wall Scoring Baseline Score Index: 1.00 The left ventricular wall motion is normal. us Socrates ROLAND CV ECHO PROCEDURES Final Re sult * ECG Adult (12/17/2024 5:02 PM EDT) EKG DIAGNOSIS CLASS Abnormal MUSE ECG Ventricular Rate 125 BPM MUSE ECG QRSD Interval 84 ms MUSE ECG QT Interval 342 ms MUSE ECG QTC Interval 493 ms MUSE ECG R [place] 30 degrees MUSE ECG T Wave [place] 173 degrees MUSE ECG Diagnosis Atrial fibrillation with rapid ventricular response MUSE ECG Diagnosis ST & T wave abnormality, consider inferolateral ischemia MUSE ECG Diagnosis Abnormal ECG MUSE ECG Diagnosis MUSE ECG Diagnosis Confirmed by Madan Dias ([id number]) on 12/18/2024 10:27:09 AM MUSE ECG 12/17/2024 5:02 PM EDT 12/18/2024 10:27 AM EDT Kourtney Rios APRN ECG ORDERABLES Final Result MUSE ECG * (ABNORMAL) Basic Metabolic Panel, Plasma (12/17/2024 4:25 AM EDT) Glucose, Plasma 96 74 - 99 mg/dL 12/17/2024 5:01 AM EDT [facility] BUN, Plasma 18 8 - 23 mg/dL 12/17/2024 5:01 AM EDT [facility] Creatinine, Plasma 0.78 0.60 - 1.10 mg/dL 12/17/2024 5:01 AM EDT [facility] BUN/Creatinine Ratio 23 12/17/2024 5:01 AM EDT [facility] Sodium, Plasma 139 136 - 145 mmol/L 12/17/2024 5:01 AM EDT [facility] Potassium, Plasma 4.0 3.6 - 4.9 mmol/L 12/17/2024 5:01 AM EDT [facility] Chloride, Plasma 105 97 - 107 mmol/L 12/17/2024 5:01 AM EDT [facility] CO2, Plasma 21(L) 22 - 29 mmol/L 12/17/2024 5:01 AM EDT [facility] Anion Gap 13 6 - 16 mmol/L 12/17/2024 5:01 AM EDT [facility] Total Calcium, Plasma 8.1(L) 8.9 - 10.2 mg/dL 12/17/2024 5:01 AM EDT [facility] eGFRcr 75.9 mL/min/1.7 3m*2 12/17/2024 5:01 AM EDT [facility] Comment:Reported eGFRcr in m L/min/1.73m2 is based the CKD-EPI 2020 equation that does not use a race coefficient. Blood Venous blood specimen / Unknown Venipuncture / Unknown 12/17/2024 4:25 AM EDT 12/17/2024 4:30 AM EDT us Aury ROLAND LAB BLOOD ORDERABLES Final Result [facility] [address] [place] [address] * (ABNORMAL) CBC W/O Differential (12/17/2024 4:25 AM EDT) WBC Count 6.60 3.70 - 10.30 10*3/uL LAB HEMATOLOGY METHOD 12/17/2024 4:38 AM EDT [facility] RBC Count 3.97 3.90 - 5.20 10*6/uL LAB HEMATOLOGY METHOD 12/17/2024 4:38 AM EDT [facility] HGB 12.1 11.2 - 15.7 g/dL LAB HEMATOLOGY METHOD 12/17/2024 4:38 AM EDT [facility] HCT 36.5 34.0 - 45.0 % LAB HEMATOLOGY METHOD 12/17/2024 4:38 AM EDT [facility] Platelet Count 300 155 - 369 10*3/uL LAB HEMATOLOGY METHOD 12/17/2024 4:38 AM EDT [facility] MCV 92 79 - 98 fL LAB HEMATOLOGY METHOD 12/17/2024 4:38 AM EDT [facility] MCH 30.5 26.0 - 32.0 pg LAB HEMATOLOGY METHOD 12/17/2024 4:38 AM EDT [facility] MCHC 33.2 30.7 - 35.5 g/dL LAB HEMATOLOGY METHOD 12/17/2024 4:38 AM EDT [facility] RDW 14.6(H) 11.5 - 14.5 % LAB HEMATOLOGY METHOD 12/17/2024 4:38 AM EDT [facility] MPV 10.4 8.8 - 12.5 fL LAB HEMATOLOGY METHOD 12/17/2024 4:38 AM EDT [facility] nRBC 0.0 <=0.0 per 100 WBCs LAB HEMATOLOGY METHOD 12/17/2024 4:38 AM EDT [facility] Blood Venous blood specimen / Unknown Venipuncture / Unknown 12/17/2024 4:25 AM EDT 12/17/2024 4:30 AM EDT us Aury ROLAND LAB BLOOD ORDERABLES Final Result [facility] [address] [place] [address] * XR Chest 1 View (12/17/2024 1:31 AM EDT) Anatomical Region Laterality Modality Chest Digital Radiogra phy Impressions 12/17/2024 10:11 AM EDT No significant interval change. CRITICAL RESULT: No. COMMUNICATION: Per this written report. Drafted by Mady Hernandez MD on 12/17/2024 10:09 AM Final report signed by Mady Hernandez MD on 12/17/2024 10:11 AM Narrative 12/17/2024 10:11 AM EDT CLINICAL INDICATION: s/p pericardial drain TECHNIQUE: Single AP view of chest. COMPARISON: One day prior FINDINGS: Stable position of the pacemaker device and leads. The cardiomediastinal contours unchanged. No pneumothorax. No sizable pleural effusion. Bibasal atelectatic changes. No lung consolidation. Procedure Note Mady Hernandez MD - 12/17/2024 CLINICAL INDICATION: s/p pericardial drain TECHNIQUE: Single AP view of chest. COMPARISON: One day prior FINDINGS: Stable position of the pacemaker device and leads. The cardiomediastinalcontours unchanged. No pneumothorax. No sizable pleural effusion. Bibasalatelectatic changes. No lung consolidation. IMPRESSION: No significant interval change. CRITICAL RESULT: No. COMMUNICATION: Per this written report. Drafted by Mady Hernandez MD on 12/17/2024 10:09 AM Final report signed by Mady Hernandez MD on 12/17/2024 10:11 AM us Aury Bell PA IMG XR PROCEDURES Final Res ult * Body Fluid Culture and Gram Stain (12/16/2024 3:24 PM EDT) Culture No growth at day 4 2024 11:44 AM EDT [facility] Gram Stain Result Rare Polymorphonuclear leukocytes 12/19/2024 11:44 AM EDT [facility] Gram Stain Result No organisms seen 12/19/2024 11:44 AM EDT [facility] Pericardial Fluid Pericardial structure / Unknown Non-blood Collection / Unknown 12/16/2024 3:24 PM EDT 12/16/2024 3:24 PM EDT us Dagoberto Hernandez MD LAB MICROBIOLOGY - GENERAL O RDERABLES Final Result [facility] [address] [place] [address] * Protein, Total, Body Fluid (12/16/2024 3:06 PM EDT) TOTAL PROTEIN, FLUID 2.7 g/dL 12/19/2024 8:49 PM EDT [facility] TOTAL PROTEIN FLUID SOURCE Pericardial fl 12/19/2024 8:49 PM EDT [facility] ([place] Pericardial Fluid 12/16/2024 3:06 PM EDT 12/16/2024 3:07 PM EDT Narrative [facility] ([facility]) - 12/19/2024 8:49 PM EDT INTERPRETIVE INFORMATION: Total Protein, Body Fluid For information on body fluid reference ranges and/or interpretive guidance visit [email or web address]/ This test was developed and its performance characteristics determined by [facility]. It has not been cleared or approved by the [place] Food and Drug Administration. This test was performed in a CLIA certified laboratory and is intended for clinical purposes. Performed By: [facility] [address] [place] [address] [employer] Supervisor: Derrick Momin MD, PhD CLIA Number: [id number] Dagoberto Hernandez MD LAB REF LAB BLOOD AND FLUID ORD Final Result [facility] ([place] [address] [place] [address] * (ABNORMAL) Body Fluid Cell Count w/ Diff (12/16/2024 3:06 PM EDT) Color, Body fluid Red LAB HEMATOLOGY METHOD 12/16/2024 5:26 PM EDT [facility] Appearance, Body fluid Cloudy(A) LAB HEMATOLOGY METHOD 12/16/2024 5:26 PM EDT [facility] Volume, Body fluid 10.0 cc LAB HEMATOLOGY METHOD 12/16/2024 5:26 PM EDT [facility] Fluid Container Specimen received in miscellaneous container LAB HEMATOLOGY METHOD 12/16/2024 5:26 PM EDT [facility] Red Blood Cell Count, Body fluid 40,825 uL LAB HEMATOLOGY METHOD 12/16/2024 5:26 PM EDT [facility] Comment:Test performed by rahul biswas method. Total Nucleated Cell Count, Body fluid 8 uL LAB HEMATOLOGY METHOD 12/16/2024 5:26 PM EDT [facility] Comment:Test performed by rahul biswas method. Neutrophils %, Body fluid 30 % LAB HEMATOLOGY METHOD 12/16/2024 5:26 PM EDT [facility] Lymphocytes %, Body fluid 66 % LAB HEMATOLOGY METHOD 12/16/2024 5:26 PM EDT [facility] Monocytes/Macr ophages %, Body fluid 4 % LAB HEMATOLOGY METHOD 12/16/2024 5:26 PM EDT [facility] Eosinophils %, Body fluid 0 % LAB HEMATOLOGY METHOD 12/16/2024 5:26 PM EDT [facility] Lining/Mesothe lial Cells %, Body fluid 0 % LAB HEMATOLOGY METHOD 12/16/2024 5:26 PM EDT [facility] Neutrophils Absolute (PMN), Body fluid 2 uL LAB HEMATOLOGY METHOD 12/16/2024 5:26 PM EDT [facility] Lymphocytes Absolute, Body fluid 5 uL LAB HEMATOLOGY METHOD 12/16/2024 5:26 PM EDT [facility] Monocytes/Macr ophages Absolute, Body fluid 0 uL LAB HEMATOLOGY METHOD 12/16/2024 5:26 PM EDT [facility] Eosinophils Absolute, Body fluid 0 uL LAB HEMATOLOGY METHOD 12/16/2024 5:26 PM EDT [facility] Basophils Absolute, Body fluid 0 uL LAB HEMATOLOGY METHOD 12/16/2024 5:26 PM EDT [facility] Lining/Mesothe lial Cells Absolute, Body fluid 0 uL LAB HEMATOLOGY METHOD 12/16/2024 5:26 PM EDT [facility] Basophils %, Body fluid 0 % LAB HEMATOLOGY METHOD 12/16/2024 5:26 PM EDT [facility] Pericardial Fluid Pericardial fluid specimen / Unknown Non-blood Collection / Unknown 12/16/2024 3:06 PM EDT 12/16/2024 3:06 PM EDT us Dagoberto Hernandez MD LAB BODY FLUIDS AND STOOLS ORDERABLES NO SPECIMEN TYPE/SOURCE Final Result [facility] [address] [place] [address] * Triglycerides, body fluid (12/16/2024 3:05 PM EDT) Triglyceride, Fluid 13 mg/dL 12/18/2024 5:05 AM EDT [facility] ([facility]) Triglyceride Fluid Source Pericardial fl 12/18/2024 5:05 AM EDT [facility] ([facility]) Pericardial Fluid Non-blood Collection / Unknown 12/16/2024 3:05 PM EDT 12/16/2024 3:07 PM EDT Narrative [facility] ([facility]) - 12/18/2024 5:05 AM EDT INTERPRETIVE INFORMATION: Triglycerides, Fluid For information on body fluid reference ranges and/or interpretive guidance visit [email or web address]/ This test was developed and its performance characteristics determined by [facility]. It has not been cleared or approved by the [place] Food and Drug Administration. This test was performed in a CLIA certified laboratory and is intended for clinical purposes. Performed By: [facility] [address] [place] [id number] [employer] Supervisor: Derrick Momin MD, PhD CLIA Number: [id number] Dagoberto Hernandez MD LAB REF LAB BLOOD AND FLUID ORD Final Result [facility] ([facility]) [address] [place] [address] * GLUCOSE, BODY FLUID (SO) (12/16/2024 3:05 PM EDT) GLUCOSE, FLUID 94 mg/dL 12/18/2024 5:04 AM EDT [facility] ([facility]) GLUCOSE FLUID SOURCE Pericardial fl 12/18/2024 5:04 AM EDT [facility] ([facility]) Pericardial Fluid Non-blood Collection / Unknown 12/16/2024 3:05 PM EDT 12/16/2024 3:06 PM EDT Narrative [facility] ([facility]) - 12/18/2024 5:04 AM EDT INTERPRETIVE INFORMATION: Glucose, Body Fluid For information on body fluid reference ranges and/or interpretive guidance visit [email or web address]/ This test was developed and its performance characteristics determined by [facility]. It has not been cleared or approved by the [place] Food and Drug Administration. This test was performed in a CLIA certified laboratory and is intended for clinical purposes. Performed By: [facility] [address] [place] [address] [employer] Supervisor: Derrick Momin MD, PhD CLIA Number: [id number] Dagoberto Hernandez MD LAB REF LAB BLOOD AND FLUID ORD Final Result Performing Organization Address [facility] Co de Phone Number [facility] ([facility]) [address] [place] [address] * ALBUMIN,OTHER,MISC FLUID (SO) (12/16/2024 3:05 PM EDT) ALBUMIN, FLUID 1919 mg/dL 12/17/2024 11:53 PM EDT [facility] ([facility]) Specimen Source Pericardial Fl 12/17/2024 11:53 PM EDT [facility] ([facility]) Fluid Pericardial structure / Unknown 12/16/2024 3:05 PM EDT 12/16/2024 3:06 PM EDT Narrative [facility] ([facility]) - 12/17/2024 11:53 PM EDT INTERPRETIVE INFORMATION: Albumin, Body Fluid A reference interval has not been established for body fluid specimens. This test was developed and its performance characteristics determined by [facility]. It has not been cleared or approved by the U.S. Food and Drug Administration. This test was performed in a CLIA-certified laboratory and is intended for clinical purposes. Performed By: [facility] [address] [place] [address] [employer] Supervisor: Derrick Momin MD, PhD CLIA Number: [id number] Dagoberto Hernandez MD LAB BODY FLUIDS AND STOOLS O RDERABLES Final Result Performing Organization Address [facility] de Phone Number [facility] ([facility]) [address] [place] [address] * PERICARDIOCENTESIS (12/16/2024 2:54 PM EDT) Anatomical Region Laterality Modality Other Narrative 12/19/2024 11:10 AM EDT RESULTS: 1. Uncomplicated pericardiocentesis. Fluid was serosanguinous, 170 ml drained 2. Fluid appearance consistent with a benign post operative pericardial effusion. RECOMMENDATIONS: 1. Follow up pericardial fluid laboratory results. I was physically present at the bedside for the entire case. I agree with the findings and plan as outlined above. Erick Venegas MD Procedure Details PROCEDURES PERFORMED: 1. Pericardiocentesis INDICATIONS: 1. Post operative pericardial effusion PROCEDURAL DETAILS: A time out was done to confirm the correct patient site and procedure. The patient's subcostal and parasternal regions were prepped and draped in sterile fashion. Under ultrasound guidance the subcostal region to the left of the xiphoid process was anesthetized with 1% lidocaine. A needle was then inserted into the pericardium and a J-tipped wire was inserted into the pericardial space. The dilator of the 8F pericardial drain could not be placed so a 6F dilator from a long sheath was placed and placement was confirmed with fluoroscopy. 170 mL of serosanguinous fluid was drained and then the drain was connected to a tambourine drain. Fluid was sent for cell counts, culture, and cytology. Repeat echocardiography was performed to assess for residual effusion, which was minimal. The drain was then removed and a sterile dressing was applied. The patient was transferred out of the medical laboratory scientist in improved condition. RESULTS: 1. Uncomplicated pericardiocentesis. Fluid was serosanguinous, 170 ml drained 2. Fluid appearance consistent with a benign post operative pericardial effusion. RECOMMENDATIONS: 1. Follow up pericardial fluid laboratory results. Aury ROLAND CV CARDIAC CATH PROCEDURES Final Result * Lactate Dehydrogenase Total, Body Fluid (SO) (12/16/2024 2:46 PM EDT) Lactate Dehydrogenase Total, Body Fluid 227 U/L 12/19/2024 8:48 PM EDT [facility] ([place]) LDH Fluid Source Pericardial fl 12/05 8:48 PM EDT [facility] ([place]) Pericardial Fluid Non-blood Collection / Unknown 12/16/2024 2:46 PM EDT 12/16/2024 3:10 PM EDT Narrative [facility] ([place]) - 12/19/2024 8:48 PM EDT INTERPRETIVE INFORMATION: Lactate Dehydrogenase Total, Body Fluid For information on body fluid reference ranges and/or interpretive guidance visit [email or web address] [place].[employer]/bodyfluids/ This test was developed and its performance characteristics determined by [facility]. It has not been cleared or approved by the [place] Food and Drug Administration. This test was performed in a CLIA certified laboratory and is intended for clinical purposes. Performed By: [facility] [address] [place] [address] [employer] Supervisor: Derrick Momin MD, PhD CLIA Number: [id number] Dagoberto Hernandez MD LAB REF LAB BLOOD AND FLUID ORD Final Result Performing Organization Address City/[facility]/ZIP Co de Phone Number [facility] ([place]) [address] [place] [address] * PERIPHERAL IV (SMARTFORM LINK) (12/16/2024 11:22 AM EDT) Narrative Cathi Antonio RN - 12/16/2024 11:22 AM EDT Cathi Antonio RN 12/16/2024 11:22 AM Insert peripheral IV Performed by: Cathi Antonio RN Authorized by: Aury Bell PA Hand hygiene: Hand hygiene performed prior to insertion Inserted using aseptic techniques: Yes Preparation: Skin prepped with alcohol Orientation: Left Location: Forearm Catheter placed: Peripheral IV Catheter size: 20g/1.16in Line Technique: Ultrasound Guidance Number of attempts: 1 IV flushes: Without difficulty and positive blood return noted and IV luer locked Patient tolerance: Patient tolerated the procedure well, there were no complications and age appropriate response IV site covered with: Transparent semipermeable dressing Aury ROLAND IV THERAPY ORDERABLES Final Result * Lavender Top (12/16/2024 10:44 AM EDT) Extra Hold for add-ons 12/16/2024 1:01 PM EDT [facility] Comment:Auto resulted. Blood Venous blood specimen / Unknown 12/16/2024 10:44 AM EDT 12/16/2024 10:50 AM EDT Dagoberto Hernandez MD LAB BLOOD ORDERABLES Final R esult [facility] [address] [place] [address] * Magnesium (12/16/2024 10:44 AM EDT) Magnesium, Plasma 2.1 1.9 - 2.4 mg/dL 12/16/2024 12:01 PM EDT [facility] Blood Venous blood specimen / Unknown Venipuncture / Unknown 12/16/2024 10:44 AM EDT 12/16/2024 10:54 AM EDT Aury ROLAND LAB BLOOD ORDERABLES Final Result Performing Organization Address [facility] Co de Phone Number [facility] [address] [place] [address] * Hemoglobin A1c (12/16/2024 10:44 AM EDT) Hemoglobin A1c 5.6 <5.7 % 12/16/2024 12:28 PM EDT [facility] Blood Venous blood specimen / Unknown Venipuncture / Unknown 12/16/2024 10:44 AM EDT 12/16/2024 10:55 AM EDT Narrative [facility] - 12/16/2024 12:28 PM EDT [facility] Interpretive Data: Diagnosis of Diabetes: Diabetic > or = 6.5% Pre-diabetic 5.7 to 6.4% Non-diabetic < or = 5.6% Glycemic Targets for Type I and Type II Diabetics: Non- Adults <7.0% Adults <6.0% Children and Adolescents <7.5% Source: [place] [employer]. Standards of medical care in diabetes,2017. Diabetes Care.2017:40 (suppl 1):S1-S135. Aury ROLAND LAB BLOOD ORDERABLES Final Result Performing Organization Address City/[facility]/[place] [address] * Non-Gynecologic Cytology (12/16/2024 8:03 AM EDT) Case Report Cytology Case: [id number] Authorizing Provider: Dagoberto Hernandez MD Collected: 12/16/2024 0803 Ordering Location: [facility] Received: 12/19/2024 0804 Pathologist: Isadora cM MD Specimen: Pericardial Fluid, PERICARDIAL FLUID 8:48 AM EDT [facility] Final Diagnosis A. PERICARDIAL FLUID: - RARE ATYPICAL CELLS PRESENT IN A BACKGROUND OF BLOOD AND CHRONIC INFLAMMATORY CELLS, SEE COMMENT. 8:48 AM EDT [facility] at 0848 EDT Comment Immunohistochemica l stains were performed, which were most supportive of a reactive process in sampled material. Clinical correlation is suggested. 8:48 AM EDT [facility] Special and Immunohistochemical Stains IHC: A1-3 Calretinin: Positive in mesothelial cells A1-4 MELANIE-EP4: Rare weak staining in mesothelial cells A1-5 D2-40: Positive in mesothelial cells A1-6 MOC-31 Epithelial-Related Ag: Negative All controls show appropriate reactivity. All immunohistochemist ry, in situ hybridization, and histochemical tests were developed by and are performed at the [facility], [address] [place] [address]. All tests reported here, except those addressing HER2 (breast) and PD-L1 expression as predictive markers, have not been cleared by or approved by the US Food and Drug Administration (FDA). The FDA has determined that such clearance or approval is not necessary. The laboratory is regulated under CLIA as qualified to perform high-complexity testing. The tests are used for clinical purposes. They should not be regarded as investigational or for research. 8:48 AM EDT [facility] Clinical History pericardial effusion 8:48 AM EDT [facility] Previous Cancer No 8:48 AM EDT [facility] Gross Description A. PERICARDIAL FLUID 45 mLs of bloody fluid Cold Time: 75h 56m 8:48 AM EDT [facility] Non-Gynecologica l (Select Specimen Source) Pericardial fluid specimen / Unknown 12/16/2024 8:03 AM EDT 12/19/2024 8:04 AM EDT us Dagoberto Hernandez MD LAB CYTOLOGY ORDERABLES Alondra l Result [facility] [address] [place] [address] * N-Terminal Probnp, Plasma (12/15/2024 5:39 PM EDT) N-Terminal, PROBNP, Plasma 775 0 - 1,799 pg/mL 12/15/2024 6:30 PM EDT [facility] Blood Venous blood specimen / Unknown Venipuncture / Unknown 12/15/2024 5:39 PM EDT 12/15/2024 5:41 PM EDT us Aury [facility] LAB BLOOD ORDERABLES Final Result Performing Organization Address City/[facility]/ZIP Co de Phone Number [facility] [address] [place] [address] * (ABNORMAL) Comprehensive metabolic panel (12/15/2024 5:39 PM EDT) Glucose, Plasma 127(H) 74 - 99 mg/dL 12/15/2024 6:30 PM EDT [facility] BUN, Plasma 12 8 - 23 mg/dL 12/15/2024 6:30 PM EDT [facility] Creatinine, Plasma 0.79 0.60 - 1.10 mg/dL 12/15/2024 6:30 PM EDT [facility] BUN/Creatinine Ratio 15 12/15/2024 6:30 PM EDT [facility] Sodium, Plasma 140 136 - 145 mmol/L 12/15/2024 6:30 PM EDT [facility] Potassium, Plasma 4.3 3.6 - 4.9 mmol/L 12/15/2024 6:30 PM EDT [facility] Chloride, Plasma 106 97 - 107 mmol/L 12/15/2024 6:30 PM EDT [facility] CO2, Plasma 20(L) 22 - 29 mmol/L 12/15/2024 6:30 PM EDT [facility] Anion Gap 14 6 - 16 mmol/L 12/15/2024 6:30 PM EDT [facility] Total Calcium, Plasma 8.9 8.9 - 10.2 mg/dL 12/15/2024 6:30 PM EDT [facility] Total Protein 6.5 6.3 - 7.9 g/dL 12/15/2024 6:30 PM EDT [facility] Albumin, Plasma 4.2 3.5 - 5.2 g/dL 12/15/2024 6:30 PM EDT [facility] AST, Plasma 45(H) 10 - 35 U/L 12/15/2024 6:30 PM EDT [facility] ALT, Plasma 26 10 - 35 U/L 12/15/2024 6:30 PM EDT [facility] Alkaline Phosphatase, Plasma 53 46 - 142 U/L 12/15/2024 6:30 PM EDT [facility] Total Bilirubin, Plasma 0.8 0.2 - 1.1 mg/dL 12/15/2024 6:30 PM EDT [facility] eGFRcr 74.8 mL/min/1.7 3m*2 12/15/2024 6:30 PM EDT [facility] Comment:Reported eGFRcr in m L/min/1.73m2 is based the CKD-EPI 2020 equation that does not use a race coefficient. Blood Venous blood specimen / Unknown Venipuncture / Unknown 12/15/2024 5:39 PM EDT 12/15/2024 5:41 PM EDT [facility] BLOOD ORDERABLES Final Result [facility] [address] [place] [address] * (ABNORMAL) CBC and Differential (12/15/2024 5:39 PM EDT) WBC Count 7.61 3.70 - 10.30 10*3/uL LAB HEMATOLOGY METHOD 12/15/2024 5:49 PM EDT [facility] RBC Count 4.45 3.90 - 5.20 10*6/uL LAB HEMATOLOGY METHOD 12/15/2024 5:49 PM EDT [facility] HGB 13.5 11.2 - 15.7 g/dL LAB HEMATOLOGY METHOD 12/15/2024 5:49 PM EDT [facility] HCT 40.9 34.0 - 45.0 % LAB HEMATOLOGY METHOD 12/15/2024 5:49 PM EDT [facility] Platelet Count 347 155 - 369 10*3/uL LAB HEMATOLOGY METHOD 12/15/2024 5:49 PM EDT [facility] MCV 92 79 - 98 fL LAB HEMATOLOGY METHOD 12/15/2024 5:49 PM EDT [facility] MCH 30.3 26.0 - 32.0 pg LAB HEMATOLOGY METHOD 12/15/2024 5:49 PM EDT [facility] MCHC 33.0 30.7 - 35.5 g/dL LAB HEMATOLOGY METHOD 12/15/2024 5:49 PM EDT [facility] RDW 14.6(H) 11.5 - 14.5 % LAB HEMATOLOGY METHOD 12/15/2024 5:49 PM EDT [facility] MPV 10.5 8.8 - 12.5 fL LAB HEMATOLOGY METHOD 12/15/2024 5:49 PM EDT [facility] nRBC 0.0 <=0.0 per 100 WBCs LAB HEMATOLOGY METHOD 12/15/2024 5:49 PM EDT [facility] Differential Type Automated LAB HEMATOLOGY METHOD 12/15/2024 5:49 PM EDT [facility] Neutrophils % 70 % LAB HEMATOLOGY METHOD 12/15/2024 5:49 PM EDT [facility] Lymphocytes % 21 % LAB HEMATOLOGY METHOD 12/15/2024 5:49 PM EDT [facility] Monocytes % 6 % LAB HEMATOLOGY METHOD 12/15/2024 5:49 PM EDT [facility] Eosinophils % 2 % LAB HEMATOLOGY METHOD 12/15/2024 5:49 PM EDT [facility] Basophils % 1 % LAB HEMATOLOGY METHOD 12/15/2024 5:49 PM EDT [facility] Immature Granulocytes % 0 % LAB HEMATOLOGY METHOD 12/15/2024 5:49 PM EDT [facility] Neutrophils Absolute 5.30 1.60 - 6.10 10*3/uL LAB HEMATOLOGY METHOD 12/15/2024 5:49 PM EDT [facility] Lymphocytes Absolute 1.59 1.20 - 3.90 10*3/uL LAB HEMATOLOGY METHOD 12/15/2024 5:49 PM EDT [facility] Monocytes Absolute 0.46 0.30 - 0.90 10*3/uL LAB HEMATOLOGY METHOD 12/15/2024 5:49 PM EDT [facility] Eosinophils Absolute 0.18 0.00 - 0.50 10*3/uL LAB HEMATOLOGY METHOD 12/15/2024 5:49 PM EDT [facility] Basophils Absolute 0.06 0.00 - 0.10 10*3/uL LAB HEMATOLOGY METHOD 12/15/2024 5:49 PM EDT [facility] Immature Granulocytes Absolute 0.02 0.00 - 0.06 10*3/uL LAB HEMATOLOGY METHOD 12/15/2024 5:49 PM EDT [facility] Blood Venous blood specimen / Unknown Venipuncture / Unknown 12/15/2024 5:39 PM EDT 12/15/2024 5:41 PM EDT Narrative [facility] - 12/15/2024 5:49 PM EDT Therapeutic decision making should be based on absolute values, rather than percentages. [facility] BLOOD ORDERABLES Final Result [facility] [address] [place] [address] * ECG Adult (12/15/2024 4:41 PM EDT) EKG DIAGNOSIS CLASS Abnormal MUSE ECG Ventricular Rate 70 BPM MUSE ECG Atrial Rate 70 BPM MUSE ECG TN Interval 224 ms MUSE ECG QRSD Interval 78 ms MUSE ECG QT Interval 404 ms MUSE ECG QTC Interval 436 ms MUSE ECG R [place] 13 degrees MUSE ECG T Wave [place] 115 degrees MUSE ECG Diagnosis Atrial-paced rhythm with prolonged AV conduction MUSE ECG Diagnosis ST & T wave abnormality, consider lateral ischemia MUSE ECG Diagnosis Abnormal ECG MUSE ECG Diagnosis MUSE ECG Diagnosis Confirmed by Koffi Traore ([id number]) on 12/16/2024 6:06:48 PM MUSE ECG 12/15/2024 4:41 PM EDT 12/16/2024 6:06 PM EDT [facility] ECG ORDERABLES Final Resul t MUSE ECG * XR Chest 2 Views (12/15/2024 4:26 PM EDT) Anatomical Region Laterality Modality Chest Digital Radiogra phy Impressions 12/15/2024 4:45 PM EDT No acute pulmonary process. CRITICAL RESULT: No COMMUNICATION: Per this written report. Drafted by Angela Hughes MD on 12/15/2024 4:43 PM Final report signed by Angela Hughes MD on 12/15/2024 4:45 PM Narrative 12/15/2024 4:45 PM EDT CLINICAL INDICATION: Pre-Op cardiac surgery TECHNIQUE: XR CHEST 2 VIEWS COMPARISON: None. FINDINGS: The cardiomediastinal silhouette is normal. Left chest ICD with leads overlying the right atrium and right ventricle The lungs are clear focal consolidation or pleural effusion. No pneumothorax. The visualized osseous structures are intact. Procedure Note Angela Hughes MD - 12/15/2024 CLINICAL INDICATION: Pre-Op cardiac surgery TECHNIQUE: XR CHEST 2 VIEWS COMPARISON: None. FINDINGS: The cardiomediastinal silhouette is normal. Left chest ICD with leadsoverlying the right atrium and right ventricle The lungs are clear focalconsolidation or pleural effusion. No pneumothorax. The visualized osseousstructures are intact. IMPRESSION: No acute pulmonary process. CRITICAL RESULT: No COMMUNICATION: Per this written report. Drafted by Angela Hughes MD on 12/15/2024 4:43 PM Final report signed by Angela Hughes MD on 12/15/2024 4:45 PM [facility] IM[facility] XR PROCEDURES Final Res ult documented in this encounter Visit Diagnoses Diagnosis Pericardial effusion- Primary Unspecified disease of pericardium Pericardial effusion Unspecified disease of pericardium Paroxysmal atrial fibrillation (CMS/HCC) Atrial fibrillation HTN (hypertension) Unspecified essential hypertension Hyperlipidemia Other and unspecified hyperlipidemia GERD (gastroesophageal reflux disease) Esophageal reflux S/P placement of cardiac pacemaker Anxiety Anxiety state, unspecified Severe protein-calorie malnutrition (CMS/HCC) Other severe protein-calorie malnutrition Tachy-carlos syndrome Sinoatrial node dysfunction Chronic anticoagulation Encounter for long-term (current) use of anticoagulants Pericardial effusion Unspecified disease of pericardium documented in this encounter Admitting Diagnoses Diagnosis Pericardial effusion Unspecified disease of pericardium documented in this encounter Administered Medications Inactive Administered Medications - up to 3 most recent administrations Medication Order MAR Action Action Date Dose Rate Site atorvastatin (Lipitor) tablet 40 mg 40 mg, Oral, Nightly, First dose (after last modification) on [place] 12/15/24 at 2100, Until Discontinued, Routine Given 12/17/2024 9:11 PM EDT 40 mg Given 12/16/2024 9:27 PM EDT 40 mg Given 12/15/2024 9:23 PM EDT 40 mg calcium carbonate (Tums) chewable tablet 500 mg 500 mg, Oral, Every 6 hours PRN, Starting on [place] 12/15/24 at 1154, Until 12/18/24 at 1708, Routine, indigestion, heartburn, dyspepsia / upset stomach cetirizine (ZyrTEC) tablet 10 mg 10 mg, Oral, Nightly, First dose on [place] 12/15/24 at 2100, Until Discontinued, Routine Given 12/17/2024 9:11 PM EDT 10 mg Given 12/16/2024 9:27 PM EDT 10 mg Given 12/15/2024 9:23 PM EDT 10 mg cholecalciferol (Vitamin D-3) tablet 1,000 Units 1,000 Units, Oral, Daily, First dose on [place] 12/15/24 at 1600, Until Discontinued Given 12/18/2024 9:05 AM E DT 1,000 Units Given 12/17/2024 9:32 AM EDT 1,000 Units Given 12/16/2024 8:47 AM EDT 1,000 Units dilTIAZem (Cardizem) 125 mg in sodium chloride 0.9 % 125 mL (1 mg/mL) infusion 5 mg/hr (5 mL/hr), 1 mg/mL, 125 mL, Intravenous, Continuous, Starting on 12/17/24 at 1830, Until 12/18/24 at 0739, STAT New Bag 12/17/2024 6:05 PM EDT 5 mg/hr 5 mL/hr dilTIAZem (Cardizem) injection 20 mg 20 mg, Intravenous, Once, 1 dose, On 12/17/24 at 1815, Routine Given 12/17/2024 6:02 PM EDT 20 mg docusate sodium (Colace) capsule 100 mg 100 mg, Oral, 2 times daily, First dose on [place] 12/15/24 at 1245, Until Discontinued, Routine Given 12/18/2024 9:05 AM EDT 100 mg Given 12/17/2024 9:11 PM EDT 100 mg Given 12/16/2024 8:47 AM EDT 100 mg dofetilide (Tikosyn) capsule 250 mcg 250 mcg, Oral, Every 12 hours, First dose on [place] 12/15/24 at 1515, Until Discontinued, Routine Given 12/18/2024 9:06 AM EDT 250 mcg Given 12/17/2024 9:11 PM EDT 250 mcg Given 12/17/2024 9:32 AM EDT 250 mcg heparin (porcine) injection 5,000 Units 5,000 Units, Subcutaneous, Every 8 hours scheduled, First dose on [place] 12/15/24 at 1245, Until Discontinued, Routine Given 12/16/2024 5:25 AM EDT 5,000 Units Left Lower Abdomen Given 12/15/2024 9:23 PM EDT 5,000 Units L eft Lower Abdomen hydrOXYzine pamoate (Vistaril) capsule 25 mg 25 mg, Oral, Every 6 hours PRN, Starting on 12/17/24 at 1659, Until 12/18/24 at 1708, Routine, anxiety magnesium oxide (Mag-Ox) tablet 400 mg 400 mg, Oral, Daily, First dose on [place] 12/15/24 at 1515, Until Discontinued, Routine Given 12/18/2024 9:05 AM EDT 400 mg Given 12/17/2024 9:32 AM EDT 400 mg Given 12/16/2024 8:47 AM EDT 400 mg metoprolol tartrate (Lopressor) injection 5 mg 5 mg, Intravenous, Every 5 min PRN, 3 doses, Starting on 12/17/24 at 1641, Until 12/17/24 at 1716, Routine, HR > 110 Given 12/17/2024 5:16 PM EDT 5 mg Given 12/17/2024 5:08 PM EDT 5 mg Given 12/17/2024 4:54 PM EDT 5 mg metoprolol tartrate (Lopressor) tablet 25 mg 25 mg, Oral, 2 times daily, First dose on Thu12/15/24 at 2100, Until Discontinued, Routine Given 12/17/2024 9:42 PM EDT 25 mg Given 12/17/2024 9:32 AM EDT 25 mg Given 12/16/2024 9:27 PM EDT 25 mg metoprolol tartrate (Lopressor) tablet 25 mg 25 mg, Oral, Every 8 hours, First dose (after last modification) on Thu12/18/24 at 0615, Until Discontinued, Routine Given 12/18/2024 2:24 PM EDT 25 mg Given 12/18/2024 6:17 AM EDT 25 mg nitroglycerin (Nitrostat) SL tablet 0.4 mg 0.4 mg, Sublingual, Every 5 min PRN, Starting on [facility] 12/15/24 at 1154, Until [place] 12/18/24 at 1708, Routine, chest pain oxyCODONE (Roxicodone) immediate release tablet 5 mg 5 mg, Oral, Every 6 hours PRN, Starting on Thu12/16/24 at 1512, Until Thu12/16/24 at 1609, Routine, Recovery (Phase I only), severe pain Given 12/16/2024 3:23 PM EDT 5 mg oxyCODONE (Roxicodone) immediate release tablet 5 mg 5 mg, Oral, Every 6 hours PRN, Starting on Thu12/16/24 at 1745, Until [place] 12/18/24 at 1708, Routine, severe pain pantoprazole (Protonix) EC tablet 40 mg 40 mg, Oral, Daily, First dose on Thu12/15/24 at 1515, Until Discontinued, Routine Given 12/18/2024 9:05 AM EDT 40 mg Given 12/17/2024 9:32 AM EDT 40 mg Given 12/16/2024 8:48 AM EDT 40 mg senna (Senokot) tablet 17.2 mg 17.2 mg, Oral, Nightly, First dose on [place] 12/15/24 at 2100, Until Discontinued, Routine Given 12/17/2024 9:11 PM EDT 17.2 mg simethicone (Mylicon) chewable tablet 80 mg 80 mg, Oral, 4 times daily PRN, Starting on [place] 12/15/24 at 1154, Until 12/18/24 at 1708, Routine, flatulence sodium chloride 0.9 % flush 10 mL 10 mL, Intravenous, Every 12 hours, First dose on [place] 12/15/24 at 1245, Until Discontinued, Routine Given 12/18/2024 11:52 AM EDT 10 mL Given 12/18/2024 12:34 AM EDT 10 mL Given 12/17/2024 12:23 PM EDT 10 mL sodium chloride 0.9 % flush 10 mL 10 mL, Intravenous, As needed, Starting on [place] 12/15/24 at 1154, Until 12/18/24 at 1708, Routine, line care documented in this encounter Active and Recently Administered Medications Times are shown in EDT. Scheduled Medication Order 12/16/2024 12/17/2024 12/18/2024 atorvastatin (Lipitor) tablet 40 mg 40 mg, Oral, Nightly, First dose (after last modification) on [place] 12/15/24 at 2100, Until Discontinued, Routine 1325 (JUN Hold - Provider: Automatic Transfer Provider - Reason: Patient in procedure)160 (JUN Unhold - Provider: Automatic Transfer Provider)2126 (Given - Provider: Paul Driscoll RN) 2110 (Given - Provider: Paul Driscoll RN) cetirizine (ZyrTEC) tablet 10 mg 10 mg, Oral, Nightly, First dose on [place] 12/15/24 at 2100, Until Discontinued, Routine 1325 (JUN Hold - Provider: Automatic Transfer Provider - Reason: Patient in procedure)1609 (JUN Unhold - Provider: Automatic Transfer Provider)2126 (Given - Provider: Paul Driscoll RN) 2110 (Given - Provider: Paul Driscoll RN) cholecalciferol (Vitamin D-3) tablet 1,000 Units 1,000 Units, Oral, Daily, First dose on [place] 12/15/24 at 1600, Until Discontinued 0847 (Given - Provider: Dre Barbosa RN)1325 ([facility] Hold - Provider: Automatic Transfer Provider - Reason: Patient in procedure)1609 ([facility] Unhold - Provider: Automatic Transfer Provider) 0932 (Given - Provider: Claudia Spicer RN) 0905 (Given - Provider: Shine Cantu, ANGEL) dilTIAZem (Cardizem) injection 20 mg (COMPLETED) 20 mg, Intravenous, Once, 1 dose, On 12/17/24 at 1815, Routine 1802 (Given - Provider: Claudia Spicer RN - Comment: Rapid is at the bedside. rapid pushed it) docusate sodium (Colace) capsule 100 mg 100 mg, Oral, 2 times daily, First dose on [place] 12/15/24 at 1245, Until Discontinued, Routine 0847 (Given - Provider: Dre Barbosa RN)1325 (JUN Hold - Provider: Automatic Transfer Provider - Reason: Patient in procedure)160 (JUN Unhold - Provider: Automatic Transfer Provider)2017 (Not Given - Provider: Paul Driscoll RN - Reason: Patient/family refused) 09 (Not Given - Provider: Claudia Spicer RN - Reason: Patient/family refused)2110 (Given - Provider: Paul Driscoll RN) 09 (Given - Provider: Shine Cantu RN) dofetilide (Tikosyn) capsule 250 mcg 250 mcg, Oral, Every 12 hours, First dose on [place] 12/15/24 at 1515, Until Discontinued, Routine 0847 (Given - Provider: Dre Barbosa RN)1325 ([facility] Hold - Provider: Automatic Transfer Provider - Reason: Patient in procedure)1609 ([facility] Unhold - Provider: Automatic Transfer Provider)2126 (Given - Provider: Paul Driscoll RN) 0932 (Given - Provider: Claudia Spicer RN)2110 (Given - Provider: Paul Driscoll RN) 09 (Given - Provider: Shine Cantu RN) heparin (porcine) injection 5,000 Units (CANCELED) 5,000 Units, Subcutaneous, Every 8 hours scheduled, First dose on [place] 12/15/24 at 1245, Until Discontinued, Routine 0525 (Given - Provider: Maryjane Calvert RN) magnesium oxide (Mag-Ox) tablet 400 mg 400 mg, Oral, Daily, First dose on [place] 12/15/24 at 1515, Until Discontinued, Routine 0847 (Given - Provider: Dre Barbosa RN)1325 ([facility] Hold - Provider: Automatic Transfer Provider - Reason: Patient in procedure)1609 ([facility] Unhold - Provider: Automatic Transfer Provider) 0932 (Given - Provider: Claudia Spicer, ANGEL) 0905 (Given - Provider: Shine Cantu, ANGEL) metoprolol tartrate (Lopressor) tablet 25 mg (CANCELED) 25 mg, Oral, 2 times daily, First dose on [place] 12/15/24 at 2100, Until Discontinued, Routine 0847 (Given - Provider: Dre Barbosa RN)1325 ([facility] Hold - Provider: Automatic Transfer Provider - Reason: Patient in procedure)1609 ([facility] Unhold - Provider: Automatic Transfer Provider)212 (Given - Provider: Paul Driscoll, ANGEL) 0932 (Given - Provider: Claudia Spicer RN)2141 (Given - Provider: Paul Driscoll RN) metoprolol tartrate (Lopressor) tablet 25 mg 25 mg, Oral, Every 8 hours, First dose (after last modification) on Thu12/18/24 at 0615, Until Discontinued, Routine 0617 (Given - Provider: Paul Driscoll RN)1424 (Given - Provider: Shine Cantu, ANGEL) pantoprazole (Protonix) EC tablet 40 mg 40 mg, Oral, Daily, First dose on [place] 12/15/24 at 1515, Until Discontinued, Routine 0848 (Given - Provider: Dre Barbosa RN)1325 ([facility] Hold - Provider: Automatic Transfer Provider - Reason: Patient in procedure)1609 ([facility] Unhold - Provider: Automatic Transfer Provider) 0932 (Given - Provider: Claudia Spicer RN) 0905 (Given - Provider: Shine Cantu, ANGEL) senna (Senokot) tablet 17.2 mg 17.2 mg, Oral, Nightly, First dose on [place] 12/15/24 at 2100, Until Discontinued, Routine 1325 ([facility] Hold - Provider: Automatic Transfer Provider - Reason: Patient in procedure)1609 ([facility] Unhold - Provider: Automatic Transfer Provider)2017 (Not Given - Provider: Paul Driscoll RN - Reason: Patient/family refused) 2110 (Given - Provider: Paul Driscoll RN) sodium chloride 0.9 % flush 10 mL(Linked Group 1) 10 mL, Intravenous, Every 12 hours, First dose on [place] 12/15/24 at 1245, Until Discontinued, Routine 0039 (Given - Provider: Maryjane Calvert, ANGEL)1300 (Not Given - Provider: Dre Barbosa RN - Reason: Patient in procedure)1325 ([facility] Hold - Provider: Automatic Transfer Provider - Reason: Patient in procedure)1609 ([facility] Unhold - Provider: Automatic Transfer Provider)2346 (Given - Provider: Paul Driscoll RN) 1223 (Given - Provider: Claudia Spicer RN) 0034 (Given - Provider: Paul Driscoll, ANGEL)1152 (Given - Provider: Shine Cantu RN) Continuous Medication Order 12/16/2024 12/17/2024 12/18/2024 dilTIAZem (Cardizem) 125 mg in sodium chloride 0.9 % 125 mL (1 mg/mL) infusion (CANCELED) 5 mg/hr (5 mL/hr), 1 mg/mL, 125 mL, Intravenous, Continuous, Starting on 12/17/24 at 1830, Until 12/18/24 at 0739, STAT 1805 (New Bag - Provider: Claudia Spicer, ANGEL)1827 (Stopped - Provider: Claudia Spicer RN - Comment: Rapid at the bedside started continuous drip at 1805 but she backed to 70's since we pushed iv cardizem, provider ordered to hold off so rapid stopped it.) PRN Medication Order 12/16/2024 12/17/2024 12/18/2024 calcium carbonate (Tums) chewable tablet 500 mg 500 mg, Oral, Every 6 hours PRN, Starting on [place] 12/15/24 at 1154, Until 12/18/24 at 1708, Routine, indigestion, heartburn, dyspepsia / upset stomach 1325 ([facility] Hold - Provider: Automatic Transfer Provider - Reason: Patient in procedure)1609 ([facility] Unhold - Provider: Automatic Transfer Provider) fentaNYL (Sublimaze) injection (CANCELED) As needed, Starting on 12/16/24 at 1435, Until 12/16/24 at 1457, Routine, Intraprocedure 1435 (Given - Provider: Zoila Grider) hydrOXYzine pamoate (Vistaril) capsule 25 mg 25 mg, Oral, Every 6 hours PRN, Starting on 12/17/24 at 1659, Until 12/18/24 at 1708, Routine, anxiety lidocaine (Xylocaine) 1 % injection (CANCELED) As needed, Starting on 12/16/24 at 1431, Until 12/16/24 at 1457, Routine, Intraprocedure 1431 (Given - Provider: Josee Piña MD - Comment: sub xyphoid) metoprolol tartrate (Lopressor) injection 5 mg (COMPLETED) 5 mg, Intravenous, Every 5 min PRN, 3 doses, Starting on 12/17/24 at 1641, Until 12/17/24 at 1716, Routine, HR > 110 1654 (Given - Provider: Claudia Spicer RN)1708 (Given - Provider: Claudia Spicer RN)1716 (Given - Provider: Claudia Spicer RN) midazolam (Versed) injection (CANCELED) As needed, Starting on 12/16/24 at 1433, Until 12/16/24 at 1457, Routine, Intraprocedure 1425 (Given - Provider: Zoila Grider)1433 (Given - Provider: Zoila Grider) nitroglycerin (Nitrostat) SL tablet 0.4 mg 0.4 mg, Sublingual, Every 5 min PRN, Starting on [place] 12/15/24 at 1154, Until 12/18/24 at 1708, Routine, chest pain 1325 (MAR Hold - Provider: Automatic Transfer Provider - Reason: Patient in procedure)1609 ([facility] Unhold - Provider: Automatic Transfer Provider) oxyCODONE (Roxicodone) immediate release tablet 5 mg (CANCELED) 5 mg, Oral, Every 6 hours PRN, Starting on 12/16/24 at 1512, Until 12/16/24 at 1609, Routine, Recovery (Phase I only), severe pain 1523 (Given - Provider: Kassandra Coyle RN) oxyCODONE (Roxicodone) immediate release tablet 5 mg 5 mg, Oral, Every 6 hours PRN, Starting on 12/16/24 at 1745, Until 12/18/24 at 1708, Routine, severe pain simethicone (Mylicon) chewable tablet 80 mg 80 mg, Oral, 4 times daily PRN, Starting on [place] 12/15/24 at 1154, Until 12/18/24 at 1708, Routine, flatulence 1325 ([facility] Hold - Provider: Automatic Transfer Provider - Reason: Patient in procedure)1609 ([facility] Unhold - Provider: Automatic Transfer Provider) sodium chloride 0.9 % flush 10 mL(Linked Group 1) 10 mL, Intravenous, As needed, Starting on [place] 12/15/24 at 1154, Until 12/18/24 at 1708, Routine, line care 1325 ([facility] Hold - Provider: Automatic Transfer Provider - Reason: Patient in procedure)1609 ([facility] Unhold - Provider: Automatic Transfer Provider) Linked Groups Order Group 1: Insert peripheral IV (COMPLETED) Once, On [place] 12/15/24 at 1155, For 1 occurrence And Saline lock IV (CANCELED) Once, On [place] 12/15/24 at 1155, For 1 occurrence And sodium chloride 0.9 % flush 10 mLJump to med 10 mL, Intravenous, Every 12 hours, First dose on [place] 12/15/24 at 1245, Until Discontinued, Routine And sodium chloride 0.9 % flush 10 mLJump to med 10 mL, Intravenous, As needed, Starting on [place] 12/15/24 at 1154, Until 12/18/24 at 1708, Routine, line care documented in this encounter Additional Health Concerns Assessment Noted Time A Body Mass Index follow-up plan has been documented for the patient 12/18/2024 2:02 PM EDT documented as of this encounter Care Teams [employer] Relationship Specialty Start Date End Date Allen Love MD [address] [place] [id number] PCP - General 08/17/20 documented as of this encounter
--- OUTSIDE RECORDS SUMMARY | 2024-12-16 14:11 | XMS_ITS | Encounter Summary ---
Author Organization Healthcare Address [address] [place] [address] Care Team Providers Care Bobbin Cleaning Machine Operator Name Role Phone Allen Love MD Primary Care Provider + [phone] Reason for Visit * Auth/Cert (Routine) Specialty Diagnoses / Procedures Referred By Contac t Referred To Contact Diagnoses Pericardial effusion Pericardial Effusion Dagoberto Hernandez MD [address] [facility] [address] [place] [address] Phone: tel: fax: [facility] H Inpatient [address] [place] [address] Phone: tel: Referral ID Status Reason Start Date Expiration Date Visits Re quested Visits Authorized [id number] 1 1 Encounter Details Date Type Department Care Team (Late st Contact Info) Description 12/16/2024 2:11 PM EDT - 12/16/2024 3:41 PM EDT Surgery 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 Miner Operator Helper [address] [place] [address] Erick Venegas MD [address] [place] [address] Pericardial Drain Placement [87154 (CPT )] Social History Tobacco Use Types Packs/Day Years [...] the Last Year Not on file 2024 [facility] Utilities Answer Date Recorded In the past [...] Sign Reading Time Taken Comments Blood Pressure 154/68 12/16/2024 3:30 PM EDT Pulse 70 12/16/2024 3:30 PM EDT Temperature 36.8 C (98.3 F) 12/16/2024 3:00 PM EDT Respiratory Rate 16 12/16/2024 3:30 PM EDT Oxygen Saturation 96% 12/16/2024 3:30 PM EDT Inhaled Oxygen Concentration - - Weight 66.6 kg (146 lb 13.2 oz) 12/16/2024 5:51 AM EDT Height 165.1 cm (5' 5 ) 12/15/2024 10:3 1 AM EDT Body Mass Index 26.3 12/15/2024 10:31 AM EDT documented in this encounter Functional Status * Calculated C-SSRS Risk Score (Lifetime/Recent) Answer Date of Assessment Author No Risk Indicated 12/16/2024 1:27 PM EDT Jimmy Coyle RN * Question Answer Date of Assessment Author 1. Wish to be (Past 1 Month) No 025 1:27 PM EDT Kassandra Coyle RN 2. Non-Specific Active Suici babs Thoughts (Past 1 Month) No 12/16/2024 1:27 PM EDT Kassandra Coyle RN 6. Suicidal Behavior (Lifetime) No 1:27 PM EDT Kassandra Coyle RN documented as of this encounter Medications [...] MD [address] / [place] [address] Referring provider name and address: Tegan Rhodes [address] [place] [address] [place] [id number] Chief Concern, Brief History of Present Illness, and Hospital Course Hazel Manning is a 84 y.o. female who was referred to us in consultation by Dr. Douglas in [place] secondary to a pericardial effusion. The patient [...] Unfortunately, she returned to the hospital in [place] with symptomatic A-fib. She was given IV [...] Your Medications These medications were sent to - [facility] - [place], [place] - [address] [facility] [id number] metoprolol tartrate 25 MG tablet Discharge Diagnosis [...] 1322 by Claudia Spicer, ANGEL) Progress: improving Plan of Care Reviewed With: [...] Contributors Flowsheets (Taken 12/17/2024 1322 by Claudia Spicer RN) Medication Review/Management: medications reviewed Self-Care Promotion: [...] Psychosocial Wellbeing Flowsheets (Taken 12/17/2024 1322 by Dannielle, Claudia, RN) Supportive Measures: relaxation techniques promoted self-care [...] Progressing Flowsheets (Taken 12/17/2024 1322 by Claudia Spicer RN) Progress: improving Outcome Evaluation: pt. will understand [...] shifting Taken 12/17/2024 0900 by Claudia Spicer, ANGEL Skin Protection: transparent dressing maintained pulse oximeter probe site changed protective footwear used Intervention: Prevent and Manage VTE (Venous Thromboembolism) Risk Flowsheets (Taken 12/18/2024 0000) VTE Prevention/Management: SCDs (sequential compression devices) off medication Intervention: Prevent Infection Flowsheets (Taken 12/17/2024 1322 by Claudia Spicer, RN) Infection Prevention: environmental surveillance performed hand [...] Elimination Flowsheets (Taken 12/17/2024 1322 by Claudia Spicer, ANGEL) Bowel Elimination Management: relaxation techniques promoted hygiene [...] round/check completed Taken 12/17/2024 1322 by Claudia Spicer, ANGEL Stabilization Measures: legs elevated Goal: Optimal Pain [...] Oral Intake Flowsheets (Taken 12/16/20241919 by Dre Barbosa, RN) Oral Nutrition Promotion: [...] per tolerance Taken 12/17/2024 1322 by Claudia Spicer RN [...] Intervention: Develop Pain Management Plan Flowsheets (Taken 12/17/20241321 by Claudia Spicer, RN) Pain Management Interventions: pillow support provided quiet environment facilitated relaxation techniques promoted position adjusted rest Intervention: Prevent or Manage Pain Flowsheets (Taken 12/17/20241321 by Claudia Spicer, RN) Sensory Stimulation Regulation: quiet environment promoted lighting decreased care clustered Sleep/Rest Enhancement: natural light exposure provided relaxation techniques promoted Medication Review/Management: medications reviewed * Care Plan - Claudia Spicer RN - 12/17/2024 1:39 PM EDT Problem: Adult Inpatient Plan of Care Goal: Plan of Care Review Outcome: Ongoing, Progressing Flowsheets (Taken 12/17/20241321) Progress: improving Outcome Evaluation: pt. will understand [...] VTE (Venous Thromboembolism) Risk Flowsheets (Taken 12/17/2024 132) VTE Prevention/Management: (ambulating) -- Intervention: Prevent Infection Flowsheets (Taken 12/17/20241321) Infection Prevention: environmental surveillance performed hand hygiene [...] Fluid and Electrolyte Balance Flowsheets (Taken 12/17/2024 132) Fluid/Electrolyte Management: fluids adjusted Goal: Blood Glucose [...] and Manage Urinary Retention Flowsheets (Taken 12/17/2024 132) Urinary Elimination Promotion: frequent voiding encouraged positioned [...] Intervention: Promote Injury-Free Environment Flowsheets (Taken 12/17/2024 1322) Safety Promotion/Fall Prevention: activity supervised lighting adjusted [...] Oxygenation and Ventilation Flowsheets (Taken 12/17/2024 1322) Airway/Ventilation Management: airway patency maintained calming measures [...] or Manage Pain Flowsheets (Taken 12/17/2024 1322) Sensory Stimulation Regulation: quiet environment promoted lighting [...] in AM if stable CT surgery pager [phone] [1] atorvastatin, 40 mg, Oral, Nightly cetirizine, [...] Note Hazel Manning 84 y.o. female CSN: [id number] Admission: 12/15/2024 9:59 AM Primary Problem: Pericardial effusion Private Inquiry Agent reviewed chart and spoke with Koffi Manning (Spouse) and Yuridia Rhodes ( daughter, to complete this Initial Case Management Assessment. PCP: Allen Love MD Emergency Contact: Extended Emergency Contact Information Primary Emergency Contact: Koffi Manning Mobile Relation: Spouse Preferred language: Citizen Of [place] Private Inquiry Agent needed? No Insurance: Primary Visit Coverage Payer Plan Sponsor Code Group Number Group Name MEDICARE MEDICARE A & B Primary Visit Coverage Subscriber Subscriber ID Subscriber Name Subscriber [facility] Subscriber Address [id number] HAZEL MANNING [phone] [place] [address] Secondary Visit Coverage Payer Plan Sponsor Code Group Number Group Name AETNA AETNA MEDICARE SUPPLEMENT [id number] Secondary Visit Coverage Subscriber Subscriber ID Subscriber Name Subscriber [facility] Subscriber Address [id number] HAZEL MANNING [phone] [place] [address] Patient information: Primary Caregiver: Self Support System: Immediate family Daily Living Activities: Functional Status: Independent Living Arrangements: Spouse/Significant other Type of Residence: Private residence, Multi Level (one step to enter home) [address] [place] [address] Smoker in the Home?: No Current DME: [...] needed on DC. Living Will/Advance Directive/Power of Reliability Technician /Guardian: None Information Provided on Healthcare Directives: No Pre-existing DNR/DNI Order: No Patient Requests Assistance: No Additional Comments: Victoria Jay RN * Progress Notes - Aury Bell [...] and treat as needed Plan: - To excavation laborer today for intervention CT surgery pager [phone] [1] [Transfer Hold] atorvastatin, 40 mg, Oral, [...] been discussed with the patient and/or their disability representative. All questions answered and they agree to proceed. Jennifer Givens DO Department of Cardiovascular Disease Fellow, PGY-4 * Progress Notes - Victoria Jay RN - 12/16/2024 12:46 PM EDT Case Management Adult Progress Note Hazel Manning 84 y.o. female CSN: [id number] Admission: 12/15/2024 9:59 AM Primary Problem: Pericardial [...] admission Level of Mobility: Ambulatory- community Mobility Lucas: Independent gait without device History of Falls: [...] Mobility Exam: Supine to Sit Level of Lucas: Stand-by assist Physical/Nonphysical Assist: HOB elevated, Supervision Bed Mobility Exam: Sit to Supine Level of Lucas: Stand-by assist Physical/Nonphysical Assist: Supervision, HOB elevated Transfers Transfer Exam: Sit to stand Level of Lucas: Stand-by assist Physical/Nonphysical Assist: Supervision Transfer Exam: Stand to Sit Level of Lucas: Stand-by assist Physical/Nonphysical Assist: Supervision Ambulation Device: [...] Assessments Standardized Assessments: AMPA 6-Clicks Mobility Assessment [facility] 6-Clicks Mobility Assessment Difficulty patient has turning [...] 3-5 steps with a railing?: A little [facility] 6-Clicks Mobility Assessment Total : 23 No [...] 12/16/2024 Pericardial effusion 12/15/2024 Paroxysmal atrial fibrillation ([facility]/HCC) 12/15/2024 HTN (hypertension) 12/15/2024 Hyperlipidemia 12/15/2024 GERD [...] intractable, without statusmigrainosus, Nephrolithiasis, Paroxysmal atrial fibrillation ([facility]/HCC) (12/15/2024), Personal history of other diseases of the musculoskeletal system and connective tissue, Personal history of urinary calculi, 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 Past Surgical History Patient has a past surgical history that includes No past surgeries (N/A); Hemorrhoid surgery; and Skin cancer excision (N/A). Precautions None Subjective Pt consent to tx Participants in Care Family/Caregiver Present: Yes Family/Caregiver: Adult Daughter, Spouse Private Inquiry Agent: Not Applicable Presentation Oxygen Therapy: None (Room [...] admission Level of Mobility: Ambulatory- community Mobility Lucas: Independent gait without device History of Falls: [...] Mobility Exam: Supine to Sit Level of Lucas: Stand-by assist Physical/Nonphysical Assist: HOB elevated, Supervision Bed Mobility Exam: Sit to Supine Level of Lucas: Stand-by assist Physical/Nonphysical Assist: Supervision, HOB elevated Transfers Transfer Exam: Sit to stand Level of Lucas: Stand-by assist Physical/Nonphysical Assist: Supervision Transfer Exam: Stand to Sit Level of Lucas: Stand-by assist Physical/Nonphysical Assist: Supervision Balance Postural [...] and other home safety scenarios. Standardized Assessments [facility] 6-Click Daily Activities Help from Other: Don/Doff Regular Lower Body Clothings: Little Help From Other: Bathing: Little Help From Other: Toileting: None Help From Other: Don/Doff Upper Body Clothings: None Help From Other: Grooming: None Help From Other: Eating Meals: None [facility] 6 Click - Daily Activities Score: [...] IV Insert peripheral IV Performed by: Cathi Antonio [...] with: Transparent semipermeable dressing * Madalyn Sheikh, PharmMauro - 12/16/2024 9:59 AM EDT Images from the original note were not included. [id number] Dofetilide IMPORTANT WARNING: Dofetilide can cause your [...] capsules. Ask your pharmacist or check the fire code inspector's patient information for a list of the [...] be awakened, immediately call emergency services at 481. What OTHER INFORMATION should I know? Keep [...] of all of the prescription and nonprescription (lbpk-ilg-pntclap) medicines, vitamins, minerals, and dietary supplements you [...] or pharmacist about specific clinical use. The [employer] represents that the information provided hereunder was formulated with a reasonable standard of care, and in conformity with professional standards in the field. The [employer] makes no representations or warranties, express or implied, including, but not limited to, any implied warranty of merchantability and/or fitness for a particular purpose, with respect to such information and specifically disclaims all such warranties. Users are advised that decisions regarding drug therapy are complex medical decisions requiring the independent, informed decision of an appropriate health health care coordinator, and the information is provided for informational purposes only. The entire monograph for a drug should be reviewed for a thorough understanding of the drug's actions, uses and side effects. The [employer] does not endorse or recommend the use of any drug.The information is not a substitute for medical care. AHFS?? Patient Medication Information?. ?? Copyright, 2023. The [employer]??, [address], [address], [place], [place]. All Rights Reserved. Duplication for commercial use must be authorized by [facility]. Selected Revisions: October 24, 2023. AHFS?? Patient [...] the video go to this web address: [email or web address] Or, scan this QR code with your smart phone ?? [facility] * Madalyn Sheikh PharmD - 12/16/2024 9:59 AM EDT Images from the original note were not included. [id number] Rivaroxaban IMPORTANT WARNING: If you have atrial [...] doctor or pharmacist will give you the fire code inspector's patient information sheet (Medication Guide) when you begin treatment with rivaroxaban and each time you refill your prescription. Read the information carefully and ask your doctor or pharmacist if you have any questions. You can also visit the Food and Drug Administration (FDA) website (https://www.fda.gov/downloads/Drugs/DrugSafety/MTX465842.pdf) or the fire code inspector's website to obtain the Medication Guide. WHY [...] out of their sight and reach. https://www.upandaway.org Dispose of unneeded medications in a way [...] of all of the prescription and nonprescription (rpeb-hat-xfwodjb) medicines, vitamins, minerals, and dietary supplements you [...] or pharmacist about specific clinical use. The [employer] represents that the information provided hereunder was formulated with a reasonable standard of care, and in conformity with professional standards in the field. The [employer] makes no representations or warranties, express or implied, including, but not limited to, any implied warranty of merchantability and/or fitness for a particular purpose, with respect to such information and specifically disclaims all such warranties. Users are advised that decisions regarding drug therapy are complex medical decisions requiring the independent, informed decision of an appropriate health health care coordinator, and the information is provided for informational purposes only. The entire monograph for a drug should be reviewed for a thorough understanding of the drug's actions, uses and side effects. The [employer] does not endorse or recommend the use of any drug.The information is not a substitute for medical care. AHFS?? Patient Medication Information?. ?? Copyright, 2023. The [employer]??, [address], [address], [place], [place]. All Rights Reserved. Duplication for commercial use must be authorized by [facility]. Selected Revisions: July 19, 2022. AHFS?? Patient Medication Information?. ?? Copyright, 2024 * Consults - Carmen Harris RD - 12/16/2024 7:41 AM EDTAssociated Order(s): IP CONSULT TO NUTRITION SERVICES Adult Nutrition Evaluation Note Hazel Manning 84 y.o. female CSN: [id number] Room/Bed 662/662A Nutrition evaluation type: assessment Reason for evaluation: provider consult Hospital course: 84 y.o. female who was referred to us in consultation [place] [facility] [place] to a pericardial effusion. Past medical/ surgical history: Past Medical History[1] Surgical History[2] Social history: Social History[3] Additional comments: RD visited pt on 12/15/24 shortly after admission, spouse and family member present. 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 Pt denies n/v/d/c. UWL during this time ~8% (severe), prior BW 160# per pt. Pt received snack of fruit/cottage cheese during interview, RD briefly discussed diet orders. Vitals and Basic Assessment: BP: 137/79 Temp: 36.4 ??C (97.6 ??F) Oxygen Therapy: Supplemental oxygen Cristiano Coma Scale Score: 15 [place] Scale Score: [...] (146 lb 13.2 oz) BMI (Calculated): 24.43 [place] Body Weight (kg): 56.8 Percent [place] Body Weight: 117 Wt Readings from Last 10 Encounters: 12/16/24 66.6 kg (146 lb 13.2 oz) 02/14/20 67.1 kg (147 lb 15.9 oz) 01/03/20 66.2 kg (146 lb 0.2 oz) Estimated Needs: Metabolic Cart Study Results: Current Nutrition Intake: Diet Supplements: None Diet Order: NPO Diet Experience and Nutrition History: Diet Education Provided: Will monitor Pertinent home medications: atorvastatin, Vit D3, dofetilide, [place], metoprolol, omeprazole, ondansetron, rivaroxaban, Mg OTC Latter-Day needs: Nutrition Focused Physical Exam: Physical exam [...] Fall Risk Flowsheets (Taken 12/15/20241848 by Young Osman, RN) Safety Promotion/Fall Prevention: activity supervised clutter-free environment maintained fall prevention program maintained nonskid shoes/slippers when out of bed room organization consistent safety round/check completed Intervention: Prevent Skin Injury Flowsheets (Taken 12/15/2024 1021 by Young Osman, RN) Body Position: turned left legs elevated [...] us in consultation by Dr. Douglas in [place] secondary to a pericardial effusion. The patient has paroxysmal atrial fibrillation with tachy-calros syndrome and underwent PPM placement on 11/22/24. [...] However, she returned to the hospital in [place] yesterday morning again with symptomatic A-fib. She [...] SURGERIES N/A No history of surgery from [facility] [3] Allergies Allergen Reactions Amoxicillin Itching and [...] BIBIANA ISCV LV V1 VTI 24.7 cm BIBIAAN ISCV MV E Vmax 57.6 cm/s BIBIANA [...] 67 ms BIBIANA ISCV MVA(P1/2t) 3.3 cm2 BIIBANA ISCV LV mean PG 3.0 mmHG BIBIANA ISCV LV V1 mean 80.3 cm/sec BIBIANA ISCV LV max PG 7.1 mmHg BIBAINA ISCV AV-pr VR 0.9 BIBIANA ISCV Ao [...] 4.5 mm BIBIANA ISCV RVSP 23 mmHg BBIIANA ISCV RAP systole 3 mmHg BIBIANA ISCV [...] is no recent study available for direct snde-wf-rnhz comparison. Left Ventricle The left ventricle is [...] is no recent study available for direct toej-wu-gtiz comparison. Wall Scoring Baseline Score Index: 1.00 The left ventricular wall motion is normal. us Socrates ROLAND CV ECHO PROCEDURES Final Re sult * ECG Adult (12/17/2024 5:02 PM EDT) EKG DIAGNOSIS CLASS Abnormal MUSE ECG Ventricular Rate 125 BPM MUSE ECG QRSD Interval 84 ms MUSE ECG QT Interval 342 ms MUSE ECG QTC Interval 493 ms MUSE ECG R [place] 30 degrees MUSE ECG T Wave [place] 173 degrees MUSE ECG Diagnosis Atrial fibrillation with rapid ventricular response MUSE ECG Diagnosis ST & T wave abnormality, consider inferolateral ischemia MUSE ECG Diagnosis Abnormal ECG MUSE ECG Diagnosis MUSE ECG Diagnosis Confirmed by Madan Dias ([id number]) on 12/18/2024 10:27:09 AM MUSE ECG 12/17/2024 5:02 PM EDT 12/18/2024 10:27 AM EDT Kourtney Rios APRN ECG ORDERABLES Final Result MUSE ECG * (ABNORMAL) Basic Metabolic Panel, Plasma (12/17/2024 4:25 AM EDT) Glucose, Plasma 96 74 - 99 mg/dL 12/17/2024 5:01 AM EDT [facility] BUN, Plasma 18 8 - 23 mg/dL 12/17/2024 5:01 AM EDT [facility] Creatinine, Plasma 0.78 0.60 - 1.10 mg/dL 12/17/2024 5:01 AM EDT [facility] BUN/Creatinine Ratio 23 12/17/2024 5:01 AM EDT [facility] Sodium, Plasma 139 136 - 145 mmol/L 12/17/2024 5:01 AM EDT [facility] Potassium, Plasma 4.0 3.6 - 4.9 mmol/L 12/17/2024 5:01 AM EDT [facility] Chloride, Plasma 105 97 - 107 mmol/L 12/17/2024 5:01 AM EDT [facility] CO2, Plasma 21(L) 22 - 29 mmol/L 12/17/2024 5:01 AM EDT [facility] Anion Gap 13 6 - 16 mmol/L 12/17/2024 5:01 AM EDT [facility] Total Calcium, Plasma 8.1(L) 8.9 - 10.2 mg/dL 12/17/2024 5:01 AM EDT [facility] eGFRcr 75.9 mL/min/1.7 3m*2 12/17/2024 5:01 AM EDT [facility] Comment:Reported eGFRcr in m L/min/1.73m2 is based the CKD-EPI 2020 equation that does not use a race coefficient. Blood Venous blood specimen / Unknown Venipuncture / Unknown 12/17/2024 4:25 AM EDT 12/17/2024 4:30 AM EDT Aury ROLAND LAB BLOOD ORDERABLES Final Result [facility] [address] [place] [address] * (ABNORMAL) CBC W/O Differential (12/17/2024 4:25 AM EDT) WBC Count 6.60 3.70 - 10.30 10*3/uL LAB HEMATOLOGY METHOD 12/17/2024 4:38 AM EDT [facility] RBC Count 3.97 3.90 - 5.20 10*6/uL LAB HEMATOLOGY METHOD 12/17/2024 4:38 AM EDT [facility] HGB 12.1 11.2 - 15.7 g/dL LAB HEMATOLOGY METHOD 12/17/2024 4:38 AM EDT [facility] HCT 36.5 34.0 - 45.0 % LAB HEMATOLOGY METHOD 12/17/2024 4:38 AM EDT [facility] Platelet Count 300 155 - 369 10*3/uL LAB HEMATOLOGY METHOD 12/17/2024 4:38 AM EDT [facility] MCV 92 79 - 98 fL LAB HEMATOLOGY METHOD 12/17/2024 4:38 AM EDT [facility] MCH 30.5 26.0 - 32.0 pg LAB HEMATOLOGY METHOD 12/17/2024 4:38 AM EDT [facility] MCHC 33.2 30.7 - 35.5 g/dL LAB HEMATOLOGY METHOD 12/17/2024 4:38 AM EDT [facility] RDW 14.6(H) 11.5 - 14.5 % LAB HEMATOLOGY METHOD 12/17/2024 4:38 AM EDT [facility] MPV 10.4 8.8 - 12.5 fL LAB HEMATOLOGY METHOD 12/17/2024 4:38 AM EDT [facility] nRBC 0.0 <=0.0 per 100 WBCs LAB HEMATOLOGY METHOD 12/17/2024 4:38 AM EDT [facility] Blood Venous blood specimen / Unknown Venipuncture / Unknown 12/17/2024 4:25 AM EDT 12/17/2024 4:30 AM EDT us Aury ROLAND LAB BLOOD ORDERABLES Final Result [facility] [address] [place] [address] * XR Chest 1 View (12/17/2024 1:31 [...] MD on 12/17/2024 10:11 AM us Aury ROLAND IMG XR PROCEDURES Final Res ult * Body Fluid Culture and Gram Stain (12/16/2024 3:24 PM EDT) Culture No growth at day 4 2024 11:44 AM EDT [facility] Gram Stain Result Rare Polymorphonuclear leukocytes 12/19/2024 11:44 AM EDT [facility] Gram Stain Result No organisms seen 12/19/2024 11:44 AM EDT [facility] Pericardial Fluid Pericardial structure / Unknown Non-blood Collection / Unknown 12/16/2024 3:24 PM EDT 12/16/2024 3:24 PM EDT us Dagoberto Hernandez MD LAB MICROBIOLOGY - GENERAL O RDERABLES Final Result [facility] [address] [place] [address] * Protein, Total, Body Fluid (12/16/2024 3:06 PM EDT) TOTAL PROTEIN, FLUID 2.7 g/dL 12/19/2024 8:49 PM EDT [facility] TOTAL PROTEIN FLUID SOURCE Pericardial fl 12/19/2024 8:49 PM EDT [facility] STEPHEN RODNEY) Pericardial Fluid 12/16/2024 3:06 PM EDT 12/16/2024 3:07 PM EDT Narrative JACKY RODNEY) - 12/19/2024 8:49 PM EDT INTERPRETIVE INFORMATION: Total Protein, Body Fluid For information on body fluid reference ranges and/or interpretive guidance visit [email or web address]/ This test was developed and its performance characteristics determined by [facility]. It has not been cleared or approved by the [place] Food and Drug Administration. This test was performed in a CLIA certified laboratory and is intended for clinical purposes. Performed By: [facility] [address] [place] [id number] Otter Trawler Boatswain: Derrick Momin MD, PhD CLIA Number: [id number] Dagoberto Hernandez MD LAB REF LAB BLOOD AND FLUID ORD Final Result [facility]) [address] [place] [address] * (ABNORMAL) Body Fluid Cell Count w/ Diff (12/16/2024 3:06 PM EDT) Color, Body fluid Red LAB HEMATOLOGY METHOD 12/16/2024 5:26 PM EDT [facility] Appearance, Body fluid Cloudy(A) LAB HEMATOLOGY METHOD 12/16/2024 5:26 PM EDT [facility] Volume, Body fluid 10.0 cc LAB HEMATOLOGY METHOD 12/16/2024 5:26 PM EDT [facility] Fluid Container Specimen received in miscellaneous container LAB HEMATOLOGY METHOD 12/16/2024 5:26 PM EDT [facility] Red Blood Cell Count, Body fluid 40,825 uL LAB HEMATOLOGY METHOD 12/16/2024 5:26 PM EDT [facility] Comment:Test performed by rahul biswas method. Total Nucleated Cell Count, Body fluid 8 uL LAB HEMATOLOGY METHOD 12/16/2024 5:26 PM EDT [facility] Comment:Test performed by ma tomasaal method. Neutrophils %, Body fluid 30 % LAB HEMATOLOGY METHOD 12/16/2024 5:26 PM EDT [facility] Lymphocytes %, Body fluid 66 % LAB HEMATOLOGY METHOD 12/16/2024 5:26 PM EDT [facility] Monocytes/Macr ophages %, Body fluid 4 % LAB HEMATOLOGY METHOD 12/16/2024 5:26 PM EDT [facility] Eosinophils %, Body fluid 0 % LAB HEMATOLOGY METHOD 12/16/2024 5:26 PM EDT [facility] Lining/Mesothe lial Cells %, Body fluid 0 % LAB HEMATOLOGY METHOD 12/16/2024 5:26 PM EDT [facility] Neutrophils Absolute (PMN), Body fluid 2 uL LAB HEMATOLOGY METHOD 12/16/2024 5:26 PM EDT [facility] Lymphocytes Absolute, Body fluid 5 uL LAB HEMATOLOGY METHOD 12/16/2024 5:26 PM EDT [facility] Monocytes/Macr ophages Absolute, Body fluid 0 uL LAB HEMATOLOGY METHOD 12/16/2024 5:26 PM EDT [facility] Eosinophils Absolute, Body fluid 0 uL LAB HEMATOLOGY METHOD 12/16/2024 5:26 PM EDT [facility] Basophils Absolute, Body fluid 0 uL LAB HEMATOLOGY METHOD 12/16/2024 5:26 PM EDT [facility] Lining/Mesothe lial Cells Absolute, Body fluid 0 uL LAB HEMATOLOGY METHOD 12/16/2024 5:26 PM EDT [facility] Basophils %, Body fluid 0 % LAB HEMATOLOGY METHOD 12/16/2024 5:26 PM EDT [facility] Pericardial Fluid Pericardial fluid specimen / Unknown Non-blood Collection / Unknown 12/16/2024 3:06 PM EDT 12/16/2024 3:06 PM EDT us Dagoberto Hernandez MD LAB BODY FLUIDS AND STOOLS ORDERABLES NO SPECIMEN TYPE/SOURCE Final Result [facility] [address] [place] [address] * Triglycerides, body fluid (12/16/2024 3:05 PM EDT) Triglyceride, Fluid 13 mg/dL 12/18/2024 5:05 AM EDT [facility] ([facility]) Triglyceride Fluid Source Pericardial fl 12/18/2024 5:05 AM EDT [facility] ([facility]) Pericardial Fluid Non-blood Collection / Unknown 12/16/2024 3:05 PM EDT 12/16/2024 3:07 PM EDT Narrative [facility] ([place]) - 12/18/2024 5:05 AM EDT INTERPRETIVE INFORMATION: Triglycerides, Fluid For information on body fluid reference ranges and/or interpretive guidance visit [email or web address]/bodyfluids/ This test was developed and its performance characteristics determined by [facility]. It has not been cleared or approved by the US Food and Drug Administration. This test was performed in a CLIA certified laboratory and is intended for clinical purposes. Performed By: [facility] [address] [place] [address] Otter Trawler Boatswain: Derrick Momin MD, PhD CLIA Number: [id number] Dagoberto Hernandez MD LAB REF LAB BLOOD AND FLUID ORD Final Result [facility] ([facility]) [address] [place] [id number] * GLUCOSE, BODY FLUID (SO) (12/16/2024 3:05 PM EDT) GLUCOSE, FLUID 94 mg/dL 12/18/2024 5:04 AM EDT [facility] ([facility]) GLUCOSE FLUID SOURCE Pericardial fl 12/18/2024 5:04 AM EDT [facility] ([facility]) Pericardial Fluid Non-blood Collection / Unknown 12/16/2024 3:05 PM EDT 12/16/2024 3:06 PM EDT Narrative [facility] ([facility]) - 12/18/2024 5:04 AM EDT INTERPRETIVE INFORMATION: Glucose, Body Fluid For information on body fluid reference ranges and/or interpretive guidance visit [email or web address]/ This test was developed and its performance characteristics determined by [facility]. It has not been cleared or approved by the US Food and Drug Administration. This test was performed in a CLIA certified laboratory and is intended for clinical purposes. Performed By: [facility] [address] [place] [address] Otter Trawler Boatswain: Derrick Momin MD, PhD CLIA Number: [id number] Dagoberto Hernandez MD LAB REF LAB BLOOD AND FLUID ORD Final Result Performing Organization Address [facility] de Phone Number [facility] ([facility]) [address] [place] [address] * ALBUMIN,OTHER,MISC FLUID (SO) (12/16/2024 3:05 PM EDT) ALBUMIN, FLUID 1919 mg/dL 12/17/2024 11:53 PM EDT [facility] ([facility]) Specimen Source Pericardial Fl 12/17/2024 11:53 PM EDT [facility] ([facility]) Fluid Pericardial structure / Unknown 12/16/2024 3:05 PM EDT 12/16/2024 3:06 PM EDT Narrative [facility] ([facility]) - 12/17/2024 11:53 PM EDT INTERPRETIVE INFORMATION: Albumin, Body Fluid A reference interval has not been established for body fluid specimens. This test was developed and its performance characteristics determined by [facility]. It has not been cleared or approved by the U.S. Food and Drug Administration. This test was performed in a CLIA-certified laboratory and is intended for clinical purposes. Performed By: [facility] [address] [place] [address] Otter Trawler Boatswain: Derrick Momin MD, PhD CLIA Number: [id number] Dagoberto Hernandez MD LAB BODY FLUIDS AND STOOLS O RDERABLES Final Result Performing Organization Address [facility] Co de Phone Number [facility] ([facility]) [address] [place] [address] * PERICARDIOCENTESIS (12/16/2024 2:54 PM EDT) Anatomical [...] The patient was transferred out of the excavation laborer in improved condition. RESULTS: 1. Uncomplicated pericardiocentesis. [...] U/L 12/19/2024 8:48 PM EDT [facility] ([facility]) LDH Fluid Source Pericardial fl 12/05 8:48 PM EDT [facility] ([facility]) Pericardial Fluid Non-blood Collection / Unknown 12/16/2024 2:46 PM EDT 12/16/2024 3:10 PM EDT Narrative [facility] ([facility]) - 12/19/2024 8:48 PM EDT INTERPRETIVE INFORMATION: Lactate Dehydrogenase Total, Body Fluid For information on body fluid reference ranges and/or interpretive guidance visit [email or web address]/bodyfluids/ This test was developed and its performance characteristics determined by [facility]. It has not been cleared or approved by the US Food and Drug Administration. This test was performed in a CLIA certified laboratory and is intended for clinical purposes. Performed By: [facility] [address] [place] [address] Otter Trawler Boatswain: Derrick Momin MD, PhD CLIA Number: [id number] Dagoberto Hernandez MD LAB REF LAB BLOOD AND FLUID ORD Final Result [facility] ([place]) [address] [place] [address] * PERIPHERAL IV (SMARTFORM LINK) (12/16/2024 11:22 [...] Hold for add-ons 12/16/2024 1:01 PM EDT [facility] Comment:Auto resulted. Blood Venous blood specimen / Unknown 12/16/2024 10:44 AM EDT 12/16/2024 10:50 AM EDT Dagoberto Hernandez MD LAB BLOOD ORDERABLES Final R esult [facility] [address] [place] [address] * Magnesium (12/16/2024 10:44 AM EDT) Magnesium, Plasma 2.1 1.9 - 2.4 mg/dL 12/16/2024 12:01 PM EDT [facility] Blood Venous blood specimen / Unknown Venipuncture / Unknown 12/16/2024 10:44 AM EDT 12/16/2024 10:54 AM EDT [facility] LAB BLOOD ORDERABLES Final Result [facility] [address] [place] [address] * Hemoglobin A1c (12/16/2024 10:44 AM EDT) Hemoglobin A1c 5.6 <5.7 % 12/16/2024 12:28 PM EDT [facility] Blood Venous blood specimen / Unknown Venipuncture / Unknown 12/16/2024 10:44 AM EDT 12/16/2024 10:55 AM EDT Narrative [facility] - 12/16/2024 12:28 PM EDT HA1C Interpretive Data: Diagnosis of Diabetes: Diabetic > or = 6.5% Pre-diabetic 5.7 to 6.4% Non-diabetic < or = 5.6% Glycemic Targets for Type I and Type II Diabetics: Non- Adults <7.0% Adults <6.0% Children and Adolescents <7.5% Source: [place]. Standards of medical care in diabetes,2017. Diabetes Care.2017:40 (suppl 1):S1-S135. [facility] LAB BLOOD [place] [address] * Non-Gynecologic Cytology (12/16/2024 8:03 AM EDT) Case Report Cytology Case: [id number] Authorizing Provider: Dagoberto Hernandez MD Collected: 12/16/2024 0803 Ordering Location: 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 Miner Operator Helper Received: 12/19/2024 0804 Pathologist: Isadora Mc MD Specimen: Pericardial Fluid, PERICARDIAL FLUID 8:48 AM EDT [facility] Final Diagnosis A. PERICARDIAL FLUID: - RARE ATYPICAL CELLS PRESENT IN A BACKGROUND OF BLOOD AND CHRONIC INFLAMMATORY CELLS, SEE COMMENT. 8:48 AM EDT [facility] at 0848 EDT Comment Immunohistochemica l stains were performed, which were most supportive of a reactive process in sampled material. Clinical correlation is suggested. 8:48 AM EDT [facility] Special and Immunohistochemical Stains IHC: A1-3 Calretinin: Positive in mesothelial cells A1-4 MELANIE-EP4: Rare weak staining in mesothelial cells A1-5 D2-40: Positive in mesothelial cells A1-6 MOC-31 Epithelial-Related Ag: Negative All controls show appropriate reactivity. All immunohistochemist ry, in situ hybridization, and histochemical tests were developed by and are performed at the [facility], [address] [place] [address]. All tests reported here, except those addressing [...] investigational or for research. 8:48 AM EDT [facility] Clinical History pericardial effusion 8:48 AM EDT [facility] Previous Cancer No 8:48 AM EDT [facility] Gross Description A. PERICARDIAL FLUID 45 mLs of bloody fluid Cold Time: 75h 56m 8:48 AM EDT [facility] Non-Gynecologica l (Select Specimen Source) Pericardial fluid specimen / Unknown 12/16/2024 8:03 AM EDT 12/19/2024 8:04 AM EDT us Dagoberto Hernandez MD LAB CYTOLOGY ORDERABLES Alondra l Result [facility] [address] [place] [address] * N-Terminal Probnp, Plasma (12/15/2024 5:39 PM EDT) N-Terminal, PROBNP, Plasma 775 0 - 1,799 pg/mL 12/15/2024 6:30 PM EDT [facility] Blood Venous blood specimen / Unknown Venipuncture / Unknown 12/15/2024 5:39 PM EDT 12/15/2024 5:41 PM EDT us Aury ROL[facility] LAB BLOOD ORDERABLES Final Result Performing Organization Address City/[facility]/ZIP Co de Phone Number [facility] [address] [place] [address] * (ABNORMAL) Comprehensive metabolic panel (12/15/2024 5:39 PM EDT) Glucose, Plasma 127(H) 74 - 99 mg/dL 12/15/2024 6:30 PM EDT [facility] BUN, Plasma 12 8 - 23 mg/dL 12/15/2024 6:30 PM EDT [facility] Creatinine, Plasma 0.79 0.60 - 1.10 mg/dL 12/15/2024 6:30 PM EDT [facility] BUN/Creatinine Ratio 15 12/15/2024 6:30 PM EDT [facility] Sodium, Plasma 140 136 - 145 mmol/L 12/15/2024 6:30 PM EDT [facility] Potassium, Plasma 4.3 3.6 - 4.9 mmol/L 12/15/2024 6:30 PM EDT [facility] Chloride, Plasma 106 97 - 107 mmol/L 12/15/2024 6:30 PM EDT [facility] CO2, Plasma 20(L) 22 - 29 mmol/L 12/15/2024 6:30 PM EDT [facility] Anion Gap 14 6 - 16 mmol/L 12/15/2024 6:30 PM EDT [facility] Total Calcium, Plasma 8.9 8.9 - 10.2 mg/dL 12/15/2024 6:30 PM EDT [facility] Total Protein 6.5 6.3 - 7.9 g/dL 12/15/2024 6:30 PM EDT [facility] Albumin, Plasma 4.2 3.5 - 5.2 g/dL 12/15/2024 6:30 PM EDT [facility] AST, Plasma 45(H) 10 - 35 U/L 12/15/2024 6:30 PM EDT [facility] ALT, Plasma 26 10 - 35 U/L 12/15/2024 6:30 PM EDT [facility] Alkaline Phosphatase, Plasma 53 46 - 142 U/L 12/15/2024 6:30 PM EDT [facility] Total Bilirubin, Plasma 0.8 0.2 - 1.1 mg/dL 12/15/2024 6:30 PM EDT [facility] eGFRcr 74.8 mL/min/1.7 3m*2 12/15/2024 6:30 PM EDT [facility] Comment:Reported eGFRcr in m L/min/1.73m2 is based the CKD-EPI 2020 equation that does not use a race coefficient. Blood Venous blood specimen / Unknown Venipuncture / Unknown 12/15/2024 5:39 PM EDT 12/15/2024 5:41 PM EDT [facility] LAB BLOOD ORDERABLES Final Result [facility] [address] [place] [address] * (ABNORMAL) CBC and Differential (12/15/2024 5:39 PM EDT) WBC Count 7.61 3.70 - 10.30 10*3/uL LAB HEMATOLOGY METHOD 12/15/2024 5:49 PM EDT [facility] RBC Count 4.45 3.90 - 5.20 10*6/uL LAB HEMATOLOGY METHOD 12/15/2024 5:49 PM EDT [facility] HGB 13.5 11.2 - 15.7 g/dL LAB HEMATOLOGY METHOD 12/15/2024 5:49 PM EDT [facility] HCT 40.9 34.0 - 45.0 % LAB HEMATOLOGY METHOD 12/15/2024 5:49 PM EDT [facility] Platelet Count 347 155 - 369 10*3/uL LAB HEMATOLOGY METHOD 12/15/2024 5:49 PM EDT [facility] MCV 92 79 - 98 fL LAB HEMATOLOGY METHOD 12/15/2024 5:49 PM EDT [facility] MCH 30.3 26.0 - 32.0 pg LAB HEMATOLOGY METHOD 12/15/2024 5:49 PM EDT [facility] MCHC 33.0 30.7 - 35.5 g/dL LAB HEMATOLOGY METHOD 12/15/2024 5:49 PM EDT [facility] RDW 14.6(H) 11.5 - 14.5 % LAB HEMATOLOGY METHOD 12/15/2024 5:49 PM EDT [facility] MPV 10.5 8.8 - 12.5 fL LAB HEMATOLOGY METHOD 12/15/2024 5:49 PM EDT [facility] nRBC 0.0 <=0.0 per 100 WBCs LAB HEMATOLOGY METHOD 12/15/2024 5:49 PM EDT [facility] Differential Type Automated LAB HEMATOLOGY METHOD 12/15/2024 5:49 PM EDT [facility] Neutrophils % 70 % LAB HEMATOLOGY METHOD 12/15/2024 5:49 PM EDT [facility] Lymphocytes % 21 % LAB HEMATOLOGY METHOD 12/15/2024 5:49 PM EDT [facility] Monocytes % 6 % LAB HEMATOLOGY METHOD 12/15/2024 5:49 PM EDT [facility] Eosinophils % 2 % LAB HEMATOLOGY METHOD 12/15/2024 5:49 PM EDT [facility] Basophils % 1 % LAB HEMATOLOGY METHOD 12/15/2024 5:49 PM EDT [facility] Immature Granulocytes % 0 % LAB HEMATOLOGY METHOD 12/15/2024 5:49 PM EDT [facility] Neutrophils Absolute 5.30 1.60 - 6.10 10*3/uL LAB HEMATOLOGY METHOD 12/15/2024 5:49 PM EDT [facility] Lymphocytes Absolute 1.59 1.20 - 3.90 10*3/uL LAB HEMATOLOGY METHOD 12/15/2024 5:49 PM EDT [facility] Monocytes Absolute 0.46 0.30 - 0.90 10*3/uL LAB HEMATOLOGY METHOD 12/15/2024 5:49 PM EDT [facility] Eosinophils Absolute 0.18 0.00 - 0.50 10*3/uL LAB HEMATOLOGY METHOD 12/15/2024 5:49 PM EDT [facility] Basophils Absolute 0.06 0.00 - 0.10 10*3/uL LAB HEMATOLOGY METHOD 12/15/2024 5:49 PM EDT [facility] Immature Granulocytes Absolute 0.02 0.00 - 0.06 10*3/uL LAB HEMATOLOGY METHOD 12/15/2024 5:49 PM EDT [facility] Blood Venous blood specimen / Unknown Venipuncture / Unknown 12/15/2024 5:39 PM EDT 12/15/2024 5:41 PM EDT Narrative [facility] - 12/15/2024 5:49 PM EDT Therapeutic decision making should be based on absolute values, rather than percentages. us Aury [facility]OL[facility] LAB BLOOD ORDERABLES Final Result [facility] [address] [place] [address] * ECG Adult (12/15/2024 4:41 PM EDT) EKG DIAGNOSIS CLASS Abnormal MUSE ECG Ventricular Rate 70 BPM MUSE ECG Atrial Rate 70 BPM MUSE ECG MA Interval 224 ms MUSE ECG QRSD Interval 78 ms MUSE ECG QT Interval 404 ms MUSE ECG QTC Interval 436 ms MUSE ECG R [place] 13 degrees MUSE ECG T Wave [place] 115 degrees MUSE ECG Diagnosis Atrial-paced rhythm with prolonged AV conduction MUSE ECG Diagnosis ST & T wave abnormality, consider lateral ischemia MUSE ECG Diagnosis Abnormal ECG MUSE ECG Diagnosis MUSE ECG Diagnosis Confirmed by Koffi Traore ([id number]) on 12/16/2024 6:06:48 PM MUSE ECG 12/15/2024 [...] protein-calorie malnutrition (CMS/HCC) Other severe protein-calorie malnutrition Pericardial effusion Unspecified disease of pericardium documented in this encounter Admitting Diagnoses Diagnosis Pericardial effusion Unspecified disease of pericardium documented in this encounter Administered Medications Inactive Administered Medications - up to 3 most recent administrations Medication Order MAR Action Action Date Dose Rate Site atorvastatin (Lipitor) tablet 40 mg 40 mg, Oral, Nightly, First dose (after last modification) on [facility] 12/15/24 at 2100, Until Discontinued, Routine Given 12/17/2024 9:11 PM EDT 40 mg Given 12/16/2024 9:27 PM EDT 40 mg Given 12/15/2024 9:23 PM EDT 40 mg calcium carbonate (Tums) chewable tablet 500 mg 500 mg, Oral, Every 6 hours PRN, Starting on [facility] 12/15/24 at 1154, Until [place] 12/18/24 at 1708, Routine, indigestion, heartburn, dyspepsia / upset stomach cetirizine (ZyrTEC) tablet 10 mg 10 mg, Oral, Nightly, First dose on [facility] 12/15/24 at 2100, Until Discontinued, Routine Given 12/17/2024 9:11 PM EDT 10 mg Given 12/16/2024 9:27 PM EDT 10 mg Given 12/15/2024 9:23 PM EDT 10 mg cholecalciferol (Vitamin D-3) tablet 1,000 Units 1,000 Units, Oral, Daily, First dose on [facility] 12/15/24 at 1600, Until Discontinued Given 12/18/2024 9:05 AM E DT 1,000 Units Given 12/17/2024 9:32 AM EDT 1,000 Units Given 12/16/2024 8:47 AM EDT 1,000 Units docusate sodium (Colace) capsule 100 mg 100 mg, Oral, 2 times daily, First dose on [facility] 12/15/24 at 1245, Until Discontinued, Routine Given 12/18/2024 9:05 AM EDT 100 mg Given 12/17/2024 9:11 PM EDT 100 mg Given 12/16/2024 8:47 AM EDT 100 mg dofetilide (Tikosyn) capsule 250 mcg 250 mcg, Oral, Every 12 hours, First dose on [facility] 12/15/24 at 1515, Until Discontinued, Routine Given 12/18/2024 9:06 AM EDT 250 mcg Given 12/17/2024 9:11 PM EDT 250 mcg Given 12/17/2024 9:32 AM EDT 250 mcg fentaNYL (Sublimaze) injection As needed, Starting on Thu12/16/24 at 1435, Until Thu12/16/24 at 1457, Routine, Intraprocedure Given 12/16/2024 2:35 PM EDT 25 mcg hydrOXYzine pamoate (Vistaril) capsule 25 mg 25 mg, Oral, Every 6 hours PRN, Starting on [facility] 12/17/24 at 1659, Until Thu12/18/24 at 1708, Routine, anxiety lidocaine (Xylocaine) 1 % injection As needed, Starting on Thu12/16/24 at 1431, Until Thu12/16/24 at 1457, Routine, Intraprocedure Given 12/16/2024 2:31 PM EDT 5 mL magnesium oxide (Mag-Ox) tablet 400 mg 400 mg, Oral, Daily, First dose on [place] 12/15/24 at 1515, Until Discontinued, Routine Given 12/18/2024 9:05 AM EDT 400 mg Given 12/17/2024 9:32 AM EDT 400 mg Given 12/16/2024 8:47 AM EDT 400 mg metoprolol tartrate (Lopressor) tablet 25 mg 25 mg, Oral, Every 8 hours, First dose (after last modification) on Thu12/18/24 at 0615, Until Discontinued, Routine Given 12/18/2024 2:24 PM EDT 25 mg Given 12/18/2024 6:17 AM EDT 25 mg midazolam (Versed) injection As needed, Starting on Thu12/16/24 at 1433, Until Thu12/16/24 at 1457, Routine, Intraprocedure Given 12/16/2024 2:33 PM EDT 1 mg Given 12/16/2024 2:25 PM EDT 1 mg nitroglycerin (Nitrostat) SL tablet 0.4 mg 0.4 mg, Sublingual, Every 5 min PRN, Starting on [place] 12/15/24 at 1154, Until [place] 12/18/24 at 1708, Routine, chest pain oxyCODONE (Roxicodone) immediate release tablet 5 mg 5 mg, Oral, Every 6 hours PRN, Starting on Thu12/16/24 at 1745, Until 12/18/24 at 1708, Routine, severe pain pantoprazole (Protonix) EC tablet 40 mg 40 mg, Oral, Daily, First dose on Thu12/15/24 at 1515, Until Discontinued, Routine Given 12/18/2024 9:05 AM EDT 40 mg Given 12/17/2024 9:32 AM EDT 40 mg Given 12/16/2024 8:48 AM EDT 40 mg senna (Senokot) tablet 17.2 mg 17.2 mg, Oral, Nightly, First dose on Thu12/15/24 at 2100, Until Discontinued, Routine Given 12/17/2024 9:11 PM EDT 17.2 mg simethicone (Mylicon) chewable tablet 80 mg 80 mg, Oral, 4 times daily PRN, Starting on Thu12/15/24 at 1154, Until Thu12/18/24 at 1708, Routine, flatulence sodium chloride 0.9 % flush 10 mL 10 mL, Intravenous, Every 12 hours, First dose on Thu12/15/24 at 1245, Until Discontinued, Routine Given 12/18/2024 11:52 AM EDT 10 mL Given 12/18/2024 12:34 AM EDT 10 mL Given 12/17/2024 12:23 PM EDT 10 mL sodium chloride 0.9 % flush 10 mL 10 mL, Intravenous, As needed, Starting on Thu12/15/24 at 1154, Until Thu12/18/24 at 1708, Routine, line care documented in this encounter Active and Recently Administered Medications Times are shown in EDT. Scheduled Medication Order 12/16/2024 12/17/2024 12/18/2024 atorvastatin (Lipitor) tablet 40 mg 40 mg, Oral, Nightly, First dose (after last modification) on Thu12/15/24 at 2100, Until Discontinued, Routine 1325 (JUN Hold - Provider: Automatic Transfer Provider - Reason: Patient in procedure)1609 (MAR Unhold - Provider: Automatic Transfer Provider)2126 (Given - Provider: Paul Driscoll RN) 2110 (Given - Provider: Paul Driscoll RN) cetirizine (ZyrTEC) tablet 10 mg 10 mg, Oral, Nightly, First dose on [place] 12/15/24 at 2100, Until Discontinued, Routine 1325 ([facility] Hold - Provider: Automatic Transfer Provider - Reason: Patient in procedure)160 ([facility] Unhold - Provider: Automatic Transfer Provider)2126 (Given - Provider: Paul Driscoll RN) 2110 (Given - Provider: Paul Driscoll RN) cholecalciferol (Vitamin D-3) tablet 1,000 Units 1,000 Units, Oral, Daily, First dose on [place] 12/15/24 at 1600, Until Discontinued 0847 (Given - Provider: Dre Barbosa RN)1325 ([facility] Hold - Provider: Automatic Transfer Provider - Reason: Patient in procedure)160 ([facility] Unhold - Provider: Automatic Transfer [...] 0847 (Given - Provider: Dre Barbosa RN)1325 ([facility] Hold - Provider: Automatic Transfer Provider - Reason: Patient in procedure)160 ([facility] Unhold - Provider: Automatic Transfer Provider)2017 (Not Given - Provider: Paul Driscoll RN - Reason: Patient/family refused) 0932 (Not Given - Provider: Claudia Spicer RN - Reason: Patient/family refused)2110 (Given - Provider: Paul Driscoll RN) 0905 (Given - Provider: Shine Cantu, ANGEL) dofetilide (Tikosyn) capsule 250 mcg 250 mcg, Oral, Every 12 hours, First dose on [place] 12/15/24 at 1515, Until Discontinued, Routine 0847 (Given - Provider: Dre Barbosa RN)1325 ([facility] Hold - Provider: Automatic Transfer Provider - Reason: Patient in procedure)160 ([facility] Unhold - Provider: Automatic Transfer Provider)2126 (Given - Provider: Paul Driscoll RN) 0932 (Given - Provider: Claudia Spicer RN)211 (Given - Provider: Paul Driscoll RN) 0906 (Given - Provider: Shine Cantu RN) heparin [...] Transfer Provider - Reason: Patient in procedure)160 ([facility] Unhold - Provider: Automatic Transfer Provider) 0932 (Given - Provider: Claudia Spicer RN) 0905 (Given - Provider: Shine Cantu RN) metoprolol tartrate (Lopressor) tablet 25 mg (CANCELED) 25 mg, Oral, 2 times daily, First dose on [place] 12/15/24 at 2100, Until Discontinued, Routine 0847 (Given - Provider: Dre Barbosa RN)1325 ([place] Hold - Provider: Automatic Transfer Provider - Reason: Patient in procedure)160 ([facility] Unhold - Provider: Automatic Transfer Provider)2126 (Given - Provider: Paul Driscoll RN) 0932 (Given - Provider: Claudia Spicer RN)2141 (Given - Provider: Paul Driscoll RN) metoprolol tartrate (Lopressor) tablet 25 mg 25 mg, Oral, Every 8 hours, First dose (after last modification) on Thu12/18/24 at 0615, Until Discontinued, Routine 0617 (Given - Provider: Paul Driscoll RN)1424 (Given - Provider: Shine Cantu RN) pantoprazole (Protonix) EC tablet 40 mg 40 mg, Oral, Daily, First dose on [place] 12/15/24 at 1515, Until Discontinued, Routine 0848 (Given - Provider: Dre Barbosa RN)1325 ([facility] Hold - Provider: Automatic Transfer Provider - Reason: Patient in procedure)160 (MAR Unhold - Provider: Automatic Transfer Provider) 0932 (Given - Provider: Claudia Spicer RN) 0905 (Given - Provider: Shine Cantu, RN) senna (Senokot) tablet 17.2 mg 17.2 mg, Oral, Nightly, First dose on [place] 12/15/24 at 2100, Until Discontinued, Routine 1325 (MAR Hold - Provider: Automatic Transfer Provider - Reason: Patient in procedure)1609 (MAR Unhold - Provider: Automatic Transfer Provider)2018 (Not Given - Provider: Paul Driscoll RN - Reason: Patient/family refused) 211 (Given - Provider: Paul Driscoll RN) sodium chloride 0.9 % flush 10 mL(Linked Group 1) 10 mL, Intravenous, Every 12 hours, First dose on [place] 12/15/24 at 1245, Until Discontinued, Routine 0039 (Given - Provider: Maryjane Calvert RN)1300 (Not Given - Provider: Dre Barbosa RN - Reason: Patient in procedure)1325 ([facility] Hold - Provider: Automatic Transfer Provider - Reason: Patient in procedure)1609 (MAR Unhold - Provider: Automatic Transfer Provider)2346 (Given - Provider: Paul Driscoll RN) 1223 (Given - Provider: Claudia Spicer RN) 0034 (Given - Provider: Paul Driscoll RN)1152 (Given - Provider: Shine Cantu, ANGEL) Continuous Medication Order 12/16/2024 12/17/2024 12/18/2024 [id number] [...] indigestion, heartburn, dyspepsia / upset stomach 1325 ([facility] Hold - Provider: Automatic Transfer Provider - Reason: Patient in procedure)1609 (MAR Unhold - Provider: Automatic Transfer Provider) fentaNYL [...] 12/18/24 at 1708, Routine, chest pain 1325 ([facility] Hold - Provider: Automatic Transfer Provider - Reason: Patient in procedure)1609 ([facility] Unhold - Provider: Automatic Transfer Provider) oxyCODONE (Roxicodone) immediate release tablet 5 mg (CANCELED) 5 mg, Oral, Every 6 hours PRN, Starting on Thu12/16/24 at 1512, Until 12/16/24 at 1609, Routine, Recovery (Phase I only), severe pain 1523 (Given - Provider: Kassandra Coyle RN) oxyCODONE (Roxicodone) immediate release tablet 5 mg 5 mg, Oral, Every 6 hours PRN, Starting on Thu12/16/24 at 1745, Until 12/18/24 at 1708, Routine, severe pain simethicone (Mylicon) chewable tablet 80 mg 80 mg, Oral, 4 times daily PRN, Starting on [place] 12/15/24 at 1154, Until 12/18/24 at 1708, Routine, flatulence 1325 ([facility] Hold - Provider: Automatic Transfer Provider - Reason: Patient in procedure)1609 ([facility] Unhold - Provider: Automatic Transfer Provider) sodium chloride 0.9 % flush 10 mL(Linked Group 1) 10 mL, Intravenous, As needed, Starting on [place] 12/15/24 at 1154, Until 12/18/24 at 1708, Routine, line care 1325 ([facility] Hold - Provider: Automatic Transfer Provider - Reason: Patient in procedure)1609 ([facility] Unhold - Provider: Automatic Transfer [...] documented as of this encounter Care Teams Bobbin Cleaning Machine Operator Relationship Specialty Start Date End Date Allen Love MD [address] [place] [address] PCP - General 08/17/20 documented as of this encounter
--- OUTSIDE RECORDS SUMMARY | 2025-01-02 13:40 | XMS_ITS | Encounter Summary ---
Author Organization [facility] Address [address] [place] [address] Care Team Providers Care Clip Baker Name Role Phone Allen Love MD Primary Care Provider + [phone] Encounter Details Date Type Department Care Team (Latest Contact Info) Description 12/17/2024 Travel Social History Tobacco Use Types Packs/Day Years Used Date Smoking Tobacco: Never Humiliation, Afraid, Rape, and Kick questionnair e [...] the Last Year Not on file 2024 [facility] Utilities Answer Date Recorded In the past 12 months has e electric, gas, oil, or water company threatened to shut off services in your home? No 12/16/2024 Comments Unknown Sex and Gender Information Value Date Recorded Sex Assigned at Not on file Legal Sex Female 7:38 PM EDT Gender Identity Not on file Sexual Orientation Not on file documented as of this encounter Functional Status * Calculated C-SSRS Risk Score (Lifetime/Recent) Answer Date of Assessment Author No Risk Indicated 12/17/2024 8:00 PM EDT Paul Driscoll RN * Question Answer Date of Assessment Author 1. Wish to be (Past 1 Month) No 025 8:00 PM EDT Paul Driscoll RN 2. Non-Specific Active Suici babs Thoughts (Past 1 Month) No 12/17/2024 8:00 PM EDT Lalit Driscoll RN 6. Suicidal Behavior (Lifetime) No 8:00 PM EDT Paul Driscoll RN documented as of this encounter Plan of Treatment Not on file documented as of this encounter Visit Diagnoses Not on filedocumented in this encounter Additional Health Concerns Assessment Noted Time A Body Mass Index follow-up plan has been documented for the patient 12/18/2024 2:02 PM EDT documented as of this encounter Care Teams Clip Baker Relationship Specialty Start Date End Date Allen Love MD [address] [place] [id number] PCP - General 08/17/20 documented as of this encounter
--- OUTSIDE RECORDS SUMMARY | 2025-01-02 13:41 | XMS_ITS | Encounter Summary ---
Author Organization Healthcare Address [address] [place] [address] Care Team Providers Care Plant Quality Manager Name Role Phone Allen Love MD Primary Care Provider + [phone] Encounter Details Date Type Department Care Team (Late st Contact Info) Description 12/14/2024 Orders Only External Location [address] [place] [address] Provider, External Social History Tobacco Use Types Packs/Day Years Used Date Smoking Tobacco: Never Assessed Humiliation, Afraid, Rape, and Kick questionnair e [...] the Last Year Not on file 2024 [facility] Utilities Answer Date Recorded In the past [...] Risk Indicated 12/18/2024 8:00 AM EDT Shine Cantu, ANGEL * Question Answer Date of Assessment Author 1. Wish to be (Past 1 Month) No 025 8:00 AM EDT Shine Cantu, RN 2. Non-Specific Active Suici babs Thoughts (Past 1 Month) No 12/18/2024 8:00 AM EDT Tung Cantu RN 6. Suicidal Behavior (Lifetime) No 8:00 AM EDT Shine Cantu, RN documented as of this encounter Plan of Treatment Not on file documented as of this encounter Procedures Procedure Name Priority Date/Time Associated Diagnosis Comments CT THORACIC OUTSIDE IMAGES 12/14/2024 8:59 AM EDT documented in this encounter Results * CT THORACIC OUTSIDE IMAGES (12/14/2024 8:59 AM EDT) Anatomical Region Laterality Modality Computed Tomogra phy 12/14/2024 8:59 AM EDT us External Provider IMG CT PROCEDURES Edited Resul t - Final documented in this encounter Visit Diagnoses Not on filedocumented in this encounter Care Teams Plant Quality Manager Relationship Specialty Start Date End Date Allen Love MD [address] [place] [id number] PCP - General 08/17/20 documented as of this encounter
--- OUTSIDE RECORDS SUMMARY | 2025-01-02 13:41 | XMS_ITS | Encounter Summary ---
Author Organization Healthcare Address [address] [place] [address] Care Team Providers Care Tour Coordinator Name Role Phone Allen Love MD Primary Care Provider + [phone] Encounter Details Date Type Department Care Team (Late st Contact Info) Description 12/19/2024 Telephone PAV A Inpatient [address] [place] [address] Karen Zuniga CV TELE-PROGRESSIVE Social History Tobacco Use Types Packs/Day Years [...] the Last Year Not on file 2024 [facility] Utilities Answer Date Recorded In [...] on file documented as of this encounter Plan of Treatment Not on file documented as of this encounter Visit Diagnoses Not on filedocumented in this encounter Additional Health Concerns Assessment Noted Time A Body Mass Index follow-up plan has been documented for the patient 12/18/2024 2:02 PM EDT documented as of this encounter Care Teams Tour Coordinator Relationship Specialty Start Date End Date Allen Love MD [address] [place] [address] PCP - General 08/17/20 documented as of this encounter
--- OUTSIDE RECORDS SUMMARY | 2025-01-02 13:41 | XMS_ITS | Encounter Summary ---
Author Organization Healthcare Address [address] [place] [address] Care Team Providers Care Vp Software Support Name Role Phone Allen Love MD Primary Care Provider + [phone] Encounter Details Date Type Department Care Team (Late st Contact Info) Description 12/14/2024 Orders Only External Location [address] [place] [address] Provider, External Social History Tobacco Use Types [...] the Last Year Not on file 2024 [facility] Utilities Answer Date Recorded In [...] Procedure Name Priority Date/Time Associated Diagnosis Comments US OUTSIDE IMAGES 12/14/2024 8:28 AM EDT documented in this encounter Results * US OUTSIDE IMAGES (12/14/2024 8:28 AM EDT) Anatomical Region Laterality Modality Ultrasound 12/14/2024 8:28 AM EDT us External Provider IMG US PROCEDURES Edited Resul t - Final documented in this encounter Visit Diagnoses Not on filedocumented in this encounter Care Teams Vp Software Support Relationship Specialty Start Date End Date Allen Love MD [address] [place] [address] PCP - General 08/17/20 documented as of this encounter
--- OUTSIDE RECORDS SUMMARY | 2025-01-02 13:41 | XMS_ITS | Encounter Summary ---
Author Organization [facility] Address [address] [place] [address] Care Team Providers Care Order Planner Name Role Phone Allen Love MD Primary Care Provider + [phone] Encounter Details Date Type Department Care Team (Latest Contact Info) Description 12/15/2024 Travel Social History Tobacco Use Types Packs/Day [...] the Last Year Not on file 2024 [facility] Utilities Answer Date Recorded In [...] Date of Assessment Author No Risk Indicated 12/15/2024 8:39 PM EDT Ab dru Calvert RN * Question Answer Date of Assessment Author 1. Wish to be (Past 1 Month) No 025 8:39 PM EDT Maryjane Calvert RN 2. Non-Specific Active Suici babs Thoughts (Past 1 Month) No 12/15/2024 8:39 PM EDT Maryjane Calvert RN 6. Suicidal Behavior (Lifetime) No 8:39 PM EDT Maryjane Calvert RN documented as of this encounter Plan of Treatment Not on file documented as of this encounter Visit Diagnoses Not on filedocumented in this encounter Additional Health Concerns Assessment Noted Time A Body Mass Index follow-up plan has been documented for the patient 12/18/2024 2:02 PM EDT documented as of this encounter Care Teams Order Planner Relationship Specialty Start Date End Date Allen Love MD [address] [place] [address] PCP - General 08/17/20 documented as of this encounter
--- OUTSIDE RECORDS SUMMARY | 2025-01-02 13:41 | XMS_ITS | Encounter Summary ---
Author Organization Healthcare Address [address] [place] [address] Care Team Providers Care Estimate Clerk Name Role Phone Allen Love MD Primary Care Provider + [phone] Encounter Details Date Type Department Care Team (Late st Contact Info) Description 12/13/2024 Orders Only External Location [address] [place] [address] Dat Douglas MD [address] [facility] [address] [place], [place] [id number] Social History Tobacco Use Types Packs/Day Years [...] the Last Year Not on file 2024 [facility] Utilities Answer Date Recorded In the [...] Date/Time Associated Diagnosis Comments US OUTSIDE IMAGES 12/13/2024 2:04 PM EDT documented in this encounter Results * US OUTSIDE IMAGES (12/13/2024 2:04 PM EDT) Anatomical Region Laterality Modality Ultrasound 12/13/2024 2:04 PM EDT us Dat Douglas MD IMG US PROCEDURES Edited R esult - Final documented in this encounter Visit Diagnoses Not on filedocumented in this encounter Care Teams Estimate Clerk Relationship Specialty Start Date End Date Allen Love MD [address] [place] [address] PCP - General 08/17/20 documented as of this encounter
--- OUTSIDE RECORDS SUMMARY | 2025-01-02 13:41 | XMS_ITS | Clinical Summary ---
Author Organization [facility] Address [address] [place] [address] Care Team Providers Care Job Order Clerk Name Role Phone Allen Love MD Primary Care Provider [phone] Allergies Active Allergy Reactions Criticality Noted Date Comments Acetaminophen Nausea 12/15/2024 Amiodarone Unknown - Patient st ates they do not know rxn details Low 12/15/2024 Amoxicillin Itching,Rash Medium 12/15/2024 Apixaban Unknown - Patient st ates they do not know rxn details Low 12/15/2024 Metronidazole Unknown - Patient st ates they do not know rxn details Low 12/15/2024 Penicillins Unknown - Patient st ates they do not know rxn details Low 12/27/2019 Sulfacetamide Unknown - Patient st ates they do not know rxn details Low 12/27/2019 Sulfamethoxazole-Trimethoprim Unknown - Patient states they do not know rxn details Low 12/27/2019 Medications atorvastatin (Lipitor) 40 MG tablet TAKE 1 TABLET BY MOUTH AT BEDTIME FOR CHOLESTEROL 022 Active omeprazole (PriLOSEC) [address] capsule Take 1 capsule by mouth daily. 022 Active rivaroxaban (Xarelto) 20 MG tablet Take 1 tablet by mouth daily. Active dofetilide (Tikosyn) 250 MCG capsule Take 1 capsule by mouth 2 times a day. Active ondansetron ODT (Zofran-ODT) 4 MG disintegrating tablet Dissolve 1 tablet on the tongue every 8 hours as needed for vomiting or nausea. 025 Active cetirizine (ZyrTEC) 10 MG tablet Take 1 tablet by mouth daily. Active cholecalciferol (Vitamin D3) 25 MCG (1000 UT) tablet Take 1 tablet by mouth daily. Active NON FORMULARY Take 500 mg by mouth daily. Magnesium OTC Active metoprolol tartrate (Lopressor) 25 MG tablet Take 1 tablet by mouth every 8 hours. May take an extra tablet PRN recurrent afib 90 tablet 025 Active metoprolol succinate XL (Toprol-XL) 100 MG 24 hr tablet Take 1 tablet by mouth daily. 022 2024 Discontinued(S top Taking at Discharge) dilTIAZem CD (Cardizem CD) 180 MG 24 hr capsule Take 1 capsule by mouth daily. 2024 Discontinued(S top Taking at Discharge) HYDROcodone-aceta minophen ([place]) 5-325 MG tablet Take 1 tablet by mouth every 6 hours as needed for moderate pain. 025 2024 Discontinued(S top Taking at Discharge) metoprolol tartrate (Lopressor) 25 MG tablet Take 1 tablet by mouth every 8 hours. 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 Chronic anticoagulation 12/16/2024 Paroxysmal atrial fibrillation 12/15/2024 HTN (hypertension) 12/15/2024 Hyperlipidemia 12/15/2024 GERD (gastroesophageal reflux disease) S/P placement of cardiac pacemaker 12/15/2024 Anxiety 12/15/2024 Glaucoma suspect of both eyes 01/26/2022 Dry eyes 01/26/2022 Resolved Problems Problem Noted Date Diagnosed Date Resolved Date Pericardial effusion 12/15/2024 025 Nuclear sclerotic cataract of both eyes 01/26/2022 12/25/2024 Encounters Date Type Department Care Team Description 12/19/2024 Telephone [facility] Inpatient [address] [place] [address] Karen Zuniga 12/18/2024 Travel 12/17/2024 Travel 12/16/2024 2:11 PM EDT - 12/16/2024 3:41 PM EDT Surgery Cardiac Income Tax Consultant [address] [place] [address] Erick Venegas MD Pericardial Drain Placement [85711 (CPT )] 12/15/2024 9:59 AM EDT - 12/18/2024 3:08 PM EDT Hospital Encounter [facility] H Inpatient [address] Dagoberto Hernandez MD Pericardial effusion (Primary Dx) Discharge Disposition: Home or Self Care 12/15/2024 Travel 12/14/2024 Orders Only External Location [address] [place] [address] Provider, External 12/14/2024 Orders Only External Location [address] [place] [id number] Provider, External 12/13/2024 Orders Only External Location [address] [place] [id number] Dat Douglas MD from Last 3 Months Family History Medical History Relation Name Comments [...] the Last Year Not on file 2024 [facility] Utilities Answer Date Recorded In the past 12 months has [employer], gas, oil, or water company threatened to [...] Mass Index 26.3 12/15/2024 10:31 AM EDT Plan of Treatment Health Maintenance Due Date Last Done Comments [facility]-Bone Density Scan 1942 [facility]-Depression Screening 1942 [facility]-Medicare Annual Wellness (AWV) 1942 [facility]-/Child/Adol SDOH Screenings 1942 [facility]- SDOH Screenings 1960 [facility]-Adult SDOH Screenings 1960 [facility]-DTaP,Tdap,and Td Vaccine s (1 - Tdap) 1961 [facility]-Zoster Vaccines (1 of 2) 1992 NNX-EHBBD-19 Vaccine (4 - Mixed Product risk season) 2024 12/03/2023, 06/13/2020, 05/16/2020 [facility]-Influenza Vaccine (#1) 12/05/202401/27, 02/28/2023, 02/03/2022 [facility]-Pneumococcal Vaccine: 50 + Years Completed 05/25/2023 [facility]-RSV Vaccine: 60+ Years o r Completed 06/22/2023 [facility]-Obesity Intervention Completed 12/14/2024 HPV Vaccines Aged Out No longer eligi [...] on patient's age to complete this topic Procedures Procedure Name Priority Date/Time Associated Diagnosis Comments ECHO, ADULT TRANSTHORACIC LIMITED STAT 12/18/2024 12:45 PM EDT ECG ADULT STAT 12/17/2024 5:02 PM EDT BASIC METABOLIC PANEL, PLASMA Routine 12/17/2024 4:25 AM EDT CBC W/O DIFFERENTIAL Routine 12/17/2024 4:25 AM EDT XR CHEST 1 VIEW Routine 12/17/2024 1:31 AM EDT BODY FLUID CULTURE AND GRAM STAIN Routine 12/16/2024 3:24 PM EDT PROTEIN, TOTAL, BODY FLUID(SO) Routine 12/16/2024 3:06 PM EDT BODY FLUID CELL COUNT W/ MANUAL DIFFERENTIAL Routine 12/16/2024 3:06 PM EDT TRIGLYCERIDES, BODY FLUIDS (SO) Routine 12/16/2024 3:05 PM EDT GLUCOSE, BODY FLUID (SO) Routine 025 3:05 PM EDT ALBUMIN,OTHER,MISC FLUID Routine 025 3:05 PM EDT PERICARDIOCENTESIS Routine 12/16/2024 2: 54 PM EDT Pericardial effusion LACTATE DEHYDROGENASE TOTAL, BODY FLUID (SO) Routine 12/16/2024 2:46 PM EDT INSERT PERIPHERAL IV STAT 12/16/2024 11:22 AM EDT EXTRA TUBE LAVENDER TOP Routine 12/17/19 25 10:44 AM EDT EXTRA TUBES Routine 12/16/2024 10:44 AM EDT MAGNESIUM, PLASMA Routine 12/16/2024 10: 44 AM EDT HEMOGLOBIN A1C Routine 12/16/2024 10:44 AM EDT NON-GYNECOLOGIC CYTOLOGY Routine 025 8:03 AM EDT N-TERMINAL PROBNP, PLASMA Routine 2024 5:39 PM EDT COMPREHENSIVE METABOLIC PANEL, PLASMA Routine 12/15/2024 5:39 PM EDT CBC WITH AUTO DIFFERENTIAL Routine 12/15 5:39 PM EDT ECG ADULT Routine 12/15/2024 4:41 PM EDT XR CHEST 2 VIEWS Routine 12/15/2024 4:[address] THORACIC OUTSIDE IMAGES 12/14 8:59 AM EDT US OUTSIDE IMAGES 12/14/2024 8:2 8 AM EDT US OUTSIDE IMAGES 12/13/2024 2:0 4 PM EDT from Last 3 Months Results * ECHO, ADULT TRANSTHORACIC LIMITED (12/18/2024 12:45 PM EDT) [facility] BSA 1.79 m2 [place] ISCV Height 165.1 [...] ISCV LV MASS(C)D 120 g [place] ISCV UK CV ECHO LV MASS INDEX 67 g/m2 [...] is no recent study available for direct jygg-cp-eztq comparison. Left Ventricle The left ventricle is [...] is no recent study available for direct boyn-oz-dlnr comparison. Wall Scoring Baseline Score Index: 1.00 The left ventricular wall motion is normal. us Socrates ROLAND CV ECHO PROCEDURES Final Re sult * ECG Adult (12/17/2024 5:02 PM EDT) Only the most recent of2 resultswithin the time period is included. EKG DIAGNOSIS CLASS Abnormal MUSE ECG Ventricular Rate 125 BPM MUSE ECG QRSD Interval 84 ms MUSE ECG QT Interval 342 ms MUSE ECG QTC Interval 493 ms MUSE ECG R [place] 30 degrees MUSE ECG T Wave [place] 173 degrees MUSE ECG Diagnosis Atrial fibrillation with rapid ventricular response MUSE ECG Diagnosis ST & T wave abnormality, consider inferolateral ischemia MUSE ECG Diagnosis Abnormal ECG MUSE ECG Diagnosis MUSE ECG Diagnosis Confirmed by Madan Dias ([id number]) on 12/18/2024 10:27:09 AM MUSE ECG 12/17/2024 5:02 PM EDT 12/18/2024 10:27 AM EDT us Kourtney Rios APRN ECG ORDERABLES Final Result MUSE ECG * (ABNORMAL) CBC W/O Differential (12/17/2024 4:25 AM EDT) WBC Count 6.60 3.70 - 10.30 10*3/uL LAB HEMATOLOGY METHOD 12/17/2024 4:38 AM EDT [facility] RBC Count 3.97 3.90 - 5.20 10*6/uL LAB HEMATOLOGY METHOD 12/17/2024 4:38 AM EDT [facility] HGB 12.1 11.2 - 15.7 g/dL LAB HEMATOLOGY METHOD 12/17/2024 4:38 AM EDT [facility] HCT 36.5 34.0 - 45.0 % LAB HEMATOLOGY METHOD 12/17/2024 4:38 AM EDT [facility] Platelet Count 300 155 - 369 10*3/uL LAB HEMATOLOGY METHOD 12/17/2024 4:38 AM EDT [facility] MCV 92 79 - 98 fL LAB HEMATOLOGY METHOD 12/17/2024 4:38 AM EDT [facility] MCH 30.5 26.0 - 32.0 pg LAB HEMATOLOGY METHOD 12/17/2024 4:38 AM EDT [facility] MCHC 33.2 30.7 - 35.5 g/dL LAB HEMATOLOGY METHOD 12/17/2024 4:38 AM EDT [facility] RDW 14.6(H) 11.5 - 14.5 % LAB HEMATOLOGY METHOD 12/17/2024 4:38 AM EDT [facility] MPV 10.4 8.8 - 12.5 fL LAB HEMATOLOGY METHOD 12/17/2024 4:38 AM EDT [facility] nRBC 0.0 <=0.0 per 100 WBCs LAB HEMATOLOGY METHOD 12/17/2024 4:38 AM EDT [facility] Blood Venous blood specimen / Unknown Venipuncture / Unknown 12/17/2024 4:25 AM EDT 12/17/2024 4:30 AM EDT Aury ROLAND LAB BLOOD ORDERABLES Final Result [facility] [address] [place] [address] * (ABNORMAL) Basic Metabolic Panel, Plasma (12/17/2024 4:25 AM EDT) Glucose, Plasma 96 74 - 99 mg/dL 12/17/2024 5:01 AM EDT [facility] BUN, Plasma 18 8 - 23 mg/dL 12/17/2024 5:01 AM EDT [facility] Creatinine, Plasma 0.78 0.60 - 1.10 mg/dL 12/17/2024 5:01 AM EDT [facility] BUN/Creatinine Ratio 23 12/17/2024 5:01 AM EDT [facility] Sodium, Plasma 139 136 - 145 mmol/L 12/17/2024 5:01 AM EDT [facility] Potassium, Plasma 4.0 3.6 - 4.9 mmol/L 12/17/2024 5:01 AM EDT [facility] Chloride, Plasma 105 97 - 107 mmol/L 12/17/2024 5:01 AM EDT [facility] CO2, Plasma 21(L) 22 - 29 mmol/L 12/17/2024 5:01 AM EDT [facility] Anion Gap 13 6 - 16 mmol/L 12/17/2024 5:01 AM EDT [facility] Total Calcium, Plasma 8.1(L) 8.9 - 10.2 mg/dL 12/17/2024 5:01 AM EDT [facility] eGFRcr 75.9 mL/min/1.7 3m*2 12/17/2024 5:01 AM EDT [facility] Comment:Reported eGFRcr in m L/min/1.73m2 is based the CKD-EPI 2020 equation that does not use a race coefficient. Blood Venous blood specimen / Unknown Venipuncture / Unknown 12/17/2024 4:25 AM EDT 12/17/2024 4:30 AM EDT Aury ROLAND LAB BLOOD ORDERABLES Final Result [facility] [address] [place] [address] * XR Chest 1 View (12/17/2024 1:31 [...] at day 4 2024 11:44 AM EDT [facility] Gram Stain Result Rare Polymorphonuclear leukocytes 12/19/2024 11:44 AM EDT [facility] Gram Stain Result No organisms seen 12/19/2024 11:44 AM EDT [facility] Pericardial Fluid Pericardial structure / Unknown Non-blood Collection / Unknown 12/16/2024 3:24 PM EDT 12/16/2024 3:24 PM EDT Dagoberto Hernandez MD LAB MICROBIOLOGY - GENERAL O RDERABLES Final Result [facility] [address] [place] [address] * (ABNORMAL) Body Fluid Cell Count w/ Diff (12/16/2024 3:06 PM EDT) Color, Body fluid Red LAB HEMATOLOGY METHOD 12/16/2024 5:26 PM EDT [facility] Appearance, Body fluid Cloudy(A) LAB HEMATOLOGY METHOD 12/16/2024 5:26 PM EDT [facility] Volume, Body fluid 10.0 cc LAB HEMATOLOGY METHOD 12/16/2024 5:26 PM EDT [facility] Fluid Container Specimen received in miscellaneous container LAB HEMATOLOGY METHOD 12/16/2024 5:26 PM EDT [facility] Red Blood Cell Count, Body fluid 40,825 uL LAB HEMATOLOGY METHOD 12/16/2024 5:26 PM EDT [facility] Comment:Test performed by ma nual method. Total Nucleated Cell Count, Body fluid 8 uL LAB HEMATOLOGY METHOD 12/16/2024 5:26 PM EDT [facility] Comment:Test performed by ma nual method. Neutrophils %, Body fluid 30 % LAB HEMATOLOGY METHOD 12/16/2024 5:26 PM EDT [facility] Lymphocytes %, Body fluid 66 % LAB HEMATOLOGY METHOD 12/16/2024 5:26 PM EDT [facility] Monocytes/Macr ophages %, Body fluid 4 % LAB HEMATOLOGY METHOD 12/16/2024 5:26 PM EDT [facility] Eosinophils %, Body fluid 0 % LAB HEMATOLOGY METHOD 12/16/2024 5:26 PM EDT [facility] Lining/Mesothe lial Cells %, Body fluid 0 % LAB HEMATOLOGY METHOD 12/16/2024 5:26 PM EDT [facility] Neutrophils Absolute (PMN), Body fluid 2 uL LAB HEMATOLOGY METHOD 12/16/2024 5:26 PM EDT [facility] Lymphocytes Absolute, Body fluid 5 uL LAB HEMATOLOGY METHOD 12/16/2024 5:26 PM EDT [facility] Monocytes/Macr ophages Absolute, Body fluid 0 uL LAB HEMATOLOGY METHOD 12/16/2024 5:26 PM EDT [facility] Eosinophils Absolute, Body fluid 0 uL LAB HEMATOLOGY METHOD 12/16/2024 5:26 PM EDT [facility] Basophils Absolute, Body fluid 0 uL LAB HEMATOLOGY METHOD 12/16/2024 5:26 PM EDT [facility] Lining/Mesothe lial Cells Absolute, Body fluid 0 uL LAB HEMATOLOGY METHOD 12/16/2024 5:26 PM EDT [facility] Basophils %, Body fluid 0 % LAB HEMATOLOGY METHOD 12/16/2024 5:26 PM EDT [facility] Pericardial Fluid Pericardial fluid specimen / Unknown Non-blood Collection / Unknown 12/16/2024 3:06 PM EDT 12/16/2024 3:06 PM EDT Dagoberto Hernandez MD LAB BODY FLUIDS AND STOOLS ORDERABLES NO SPECIMEN TYPE/SOURCE Final Result [facility] [address] [place] [address] * Protein, Total, Body Fluid (12/16/2024 3:06 PM EDT) TOTAL PROTEIN, FLUID 2.7 g/dL 12/19/2024 8:49 PM EDT [facility] ([employer]) TOTAL PROTEIN FLUID SOURCE Pericardial fl 12/19/2024 8:49 PM EDT [facility] ([facility]) Pericardial Fluid 12/16/2024 3:06 PM EDT 12/16/2024 3:07 PM EDT Narrative [facility] ([facility]) - 12/19/2024 8:49 PM EDT INTERPRETIVE INFORMATION: Total Protein, Body Fluid For information on body fluid reference ranges and/or interpretive guidance visit [email or web address]/bodyfluids/ This test was developed and its performance characteristics determined by [facility]. It has not been cleared or approved by the US Food and Drug Administration. This test was performed in a CLIA certified laboratory and is intended for clinical purposes. Performed By: [facility] [address] [place] [address] Call Center Dispatcher: Derrick Momin MD, PhD CLIA Number: [id number] Dagoberto Hernandez MD LAB REF LAB BLOOD AND FLUID ORD Final Result Performing Organization Address [facility] Co de Phone Number [facility] ([facility]) [address] [place] [address] * ALBUMIN,OTHER,MISC FLUID (SO) (12/16/2024 3:05 PM EDT) ALBUMIN, FLUID 1919 mg/dL 12/17/2024 11:53 PM EDT [facility] Specimen Source Pericardial Fl 12/17/2024 11:53 PM EDT [facility] ([facility]) Fluid Pericardial structure / Unknown 12/16/2024 3:05 PM EDT 12/16/2024 3:06 PM EDT Narrative [facility] ([facility]) - 12/17/2024 11:53 PM EDT INTERPRETIVE INFORMATION: Albumin, Body Fluid A reference interval has not been established for body fluid specimens. This test was developed and its performance characteristics determined by [facility]. It has not been cleared or approved by the U.S. Food and Drug Administration. This test was performed in a CLIA-certified laboratory and is intended for clinical purposes. Performed By: [facility] [address] [place] [address] Call Center Dispatcher: Derrick Momin MD, PhD CLIA Number: [id number] Dagoberto Hernandez MD LAB BODY FLUIDS AND STOOLS O RDERABLES Final Result Performing Organization Address [facility] Co de Phone Number [facility] ([facility]) [address] [place] [address] * GLUCOSE, BODY FLUID (SO) (12/16/2024 3:05 PM EDT) GLUCOSE, FLUID 94 mg/dL 12/18/2024 5:04 AM EDT [facility] ([facility]) GLUCOSE FLUID SOURCE Pericardial fl 12/18/2024 5:04 AM EDT [facility] ([facility]) Pericardial Fluid Non-blood Collection / Unknown 12/16/2024 3:05 PM EDT 12/16/2024 3:06 PM EDT Narrative [facility] ([facility]) - 12/18/2024 5:04 AM EDT INTERPRETIVE INFORMATION: Glucose, Body Fluid For information on body fluid reference ranges and/or interpretive guidance visit [email or web address].Art of Click/bodyfluids/ This test was developed and its performance characteristics determined by [facility]. It has not been cleared or approved by the US Food and Drug Administration. This test was performed in a CLIA certified laboratory and is intended for clinical purposes. Performed By: [facility] [address] [place] [address] Call Center Dispatcher: Derrick Momin MD, PhD CLIA Number: [id number] Dagoberto Hernandez MD LAB REF LAB BLOOD AND FLUID ORD Final Result Performing Organization Address City/[facility]/ZIP Co de Phone Number [facility] [employer] ([facility] [address] [place] [address] * Triglycerides, body fluid (12/16/2024 3:05 PM EDT) Triglyceride, Fluid 13 mg/dL 12/18/2024 5:05 AM EDT [facility] ([facility]) Triglyceride Fluid Source Pericardial fl 12/18/2024 5:05 AM EDT [facility] ([facility]) Pericardial Fluid Non-blood Collection / Unknown 12/16/2024 3:05 PM EDT 12/16/2024 3:07 PM EDT Narrative [facility] ([facility]) - 12/18/2024 5:05 AM EDT INTERPRETIVE INFORMATION: Triglycerides, Fluid For information on body fluid reference ranges and/or interpretive guidance visit [email or web address]/bodyfluids/ This test was developed and its performance characteristics determined by [facility]. It has not been cleared or approved by the US Food and Drug Administration. This test was performed in a CLIA certified laboratory and is intended for clinical purposes. 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 RESULTS: 1. Uncomplicated pericardiocentesis. Fluid was serosanguinous, 170 ml drained 2. Fluid appearance consistent with a benign post operative pericardial effusion. RECOMMENDATIONS: 1. Follow up pericardial fluid laboratory results. Aury ROLAND CV CARDIAC CATH PROCEDURES Final Result * Lactate Dehydrogenase Total, Body Fluid (SO) (12/16/2024 2:46 PM EDT) Lactate Dehydrogenase Total, Body Fluid 227 U/L 12/19/2024 8:48 PM EDT [facility] ([facility]) LDH Fluid Source Pericardial fl 12/05 8:48 PM EDT [facility] ([employer]) Pericardial Fluid Non-blood Collection / Unknown 12/16/2024 2:46 PM EDT 12/16/2024 3:10 PM EDT Narrative [facility] ([facility]) - 12/19/2024 8:48 PM EDT INTERPRETIVE INFORMATION: Lactate Dehydrogenase Total, Body Fluid For information on body fluid reference ranges and/or interpretive guidance visit [email or web address].Art of Click/bodyfluids/ This test was developed and its performance characteristics determined by [facility]. It has not been cleared or approved by the US Food and Drug Administration. This test was performed in a CLIA certified laboratory and is intended for clinical purposes. Performed By: [facility] [address] [place] [address] Call Center Dispatcher: Derrick Momin MD, PhD [place] Number: [id number] us Dagoberto Hernandez MD LAB REF LAB BLOOD AND FLUID ORD Final Result [facility] ([facility]) [address] [place] [address] * PERIPHERAL IV ([employer]) (12/16/2024 11:22 [...] IV site covered with: Transparent semipermeable dressing us Aury ROLAND IV THERAPY ORDERABLES Final Result * Lavender Top (12/16/2024 10:44 AM EDT) Pathologist [facility] Extra Hold for add-ons 12/16/2024 1:01 PM EDT [facility] Comment:Auto resulted. Blood Venous blood specimen / Unknown 12/16/2024 10:44 AM EDT 12/16/2024 10:50 AM EDT us Dagoberto Hernandez MD LAB BLOOD ORDERABLES Final R esult [facility] [address] [place] [address] * Magnesium (12/16/2024 10:44 AM EDT) Magnesium, Plasma 2.1 1.9 - 2.4 mg/dL 12/16/2024 12:01 PM EDT [facility] Blood Venous blood specimen / Unknown Venipuncture / Unknown 12/16/2024 10:44 AM EDT 12/16/2024 10:54 AM EDT Aury Bell LUAN LAB BLOOD ORDERABLES Final Result Performing Organization Address [facility] Co de Phone Number [facility] [address] [place] [address] * Hemoglobin A1c (12/16/2024 10:44 AM EDT) Hemoglobin A1c 5.6 <5.7 % 12/16/2024 12:28 PM EDT [facility] Blood Venous blood specimen / Unknown Venipuncture / Unknown 12/16/2024 10:44 AM EDT 12/16/2024 10:55 AM EDT Narrative [facility] - 12/16/2024 12:28 PM EDT HA1C Interpretive Data: Diagnosis of Diabetes: Diabetic > or = 6.5% Pre-diabetic 5.7 to 6.4% Non-diabetic < or = 5.6% Glycemic Targets for Type I and Type II Diabetics: Non- Adults <7.0% Adults <6.0% Children and Adolescents <7.5% Source: [place] [employer]. Standards of medical care in diabetes,2017. Diabetes Care.2017:40 (suppl 1):S1-S135. Aury Webbkasia ROLAND LAB BLOOD ORDERABLES Final Result Performing Organization Address City/[facility] Co de Phone Number [facility] [address] [place] [address] * Non-Gynecologic Cytology (12/16/2024 8:03 AM EDT) Case Report Cytology Case: [id number] Authorizing Provider: Dagoberto Hernandez MD Collected: 12/16/2024 0803 Ordering Location: Cardiac Income Tax Consultant Received: 12/19/2024 0804 Pathologist: Isadora Mc MD Specimen: Pericardial Fluid, PERICARDIAL FLUID 8:48 AM EDT [facility] Final Diagnosis A. PERICARDIAL FLUID: - RARE ATYPICAL CELLS PRESENT IN A BACKGROUND OF BLOOD AND CHRONIC INFLAMMATORY CELLS, SEE COMMENT. 8:48 AM EDT [facility] at 0848 EDT Comment Immunohistochemica l stains were performed, which were most supportive of a reactive process in sampled material. Clinical correlation is suggested. 8:48 AM EDT [facility] Special and Immunohistochemical Stains IHC: A1-3 Calretinin: Positive in mesothelial cells A1-4 MELANIE-EP4: Rare weak staining in mesothelial cells A1-5 D2-40: Positive in mesothelial cells A1-6 MOC-31 Epithelial-Related Ag: Negative All controls show appropriate reactivity. All immunohistochemist ry, in situ hybridization, and histochemical tests were developed by and are performed at the [facility], [address] [place] [address]. All tests reported here, except those addressing [...] investigational or for research. 8:48 AM EDT [facility] Clinical History pericardial effusion 8:48 AM EDT [facility] Previous Cancer No 8:48 AM EDT [facility] Gross Description A. PERICARDIAL FLUID 45 mLs of bloody fluid Cold Time: 75h 56m 8:48 AM EDT [facility] Non-Gynecologica l (Select Specimen Source) Pericardial fluid specimen / Unknown 12/16/2024 8:03 AM EDT 12/19/2024 8:04 AM EDT us Dagoberto Hernandez MD LAB CYTOLOGY ORDERABLES Alondra collins Result [facility] [address] [place] [address] * N-Terminal Probnp, Plasma (12/15/2024 5:39 PM EDT) N-Terminal, PROBNP, Plasma 775 0 - 1,799 pg/mL 12/15/2024 6:30 PM EDT [facility] Blood Venous blood specimen / Unknown Venipuncture / Unknown 12/15/2024 5:39 PM EDT 12/15/2024 5:41 PM EDT Aury ROLAND LAB BLOOD ORDERABLES Final Result [facility] [address] [place] [address] * (ABNORMAL) CBC and Differential (12/15/2024 5:39 PM EDT) Pathologist [facility] WBC Count 7.61 3.70 - 10.30 10*3/uL LAB HEMATOLOGY METHOD 12/15/2024 5:49 PM EDT [facility] RBC Count 4.45 3.90 - 5.20 10*6/uL LAB HEMATOLOGY METHOD 12/15/2024 5:49 PM EDT [facility] HGB 13.5 11.2 - 15.7 g/dL LAB HEMATOLOGY METHOD 12/15/2024 5:49 PM EDT [facility] HCT 40.9 34.0 - 45.0 % LAB HEMATOLOGY METHOD 12/15/2024 5:49 PM EDT [facility] Platelet Count 347 155 - 369 10*3/uL LAB HEMATOLOGY METHOD 12/15/2024 5:49 PM EDT [facility] MCV 92 79 - 98 fL LAB HEMATOLOGY METHOD 12/15/2024 5:49 PM EDT [facility] MCH 30.3 26.0 - 32.0 pg LAB HEMATOLOGY METHOD 12/15/2024 5:49 PM EDT [facility] MCHC 33.0 30.7 - 35.5 g/dL LAB HEMATOLOGY METHOD 12/15/2024 5:49 PM EDT [facility] RDW 14.6(H) 11.5 - 14.5 % LAB HEMATOLOGY METHOD 12/15/2024 5:49 PM EDT [facility] MPV 10.5 8.8 - 12.5 fL LAB HEMATOLOGY METHOD 12/15/2024 5:49 PM EDT [facility] nRBC 0.0 <=0.0 per 100 WBCs LAB HEMATOLOGY METHOD 12/15/2024 5:49 PM EDT [facility] Differential Type Automated LAB HEMATOLOGY METHOD 12/15/2024 5:49 PM EDT [facility] Neutrophils % 70 % LAB HEMATOLOGY METHOD 12/15/2024 5:49 PM EDT [facility] Lymphocytes % 21 % LAB HEMATOLOGY METHOD 12/15/2024 5:49 PM EDT [facility] Monocytes % 6 % LAB HEMATOLOGY METHOD 12/15/2024 5:49 PM EDT [facility] Eosinophils % 2 % LAB HEMATOLOGY METHOD 12/15/2024 5:49 PM EDT [facility] Basophils % 1 % LAB HEMATOLOGY METHOD 12/15/2024 5:49 PM EDT [facility] Immature Granulocytes % 0 % LAB HEMATOLOGY METHOD 12/15/2024 5:49 PM EDT [facility] Neutrophils Absolute 5.30 1.60 - 6.10 10*3/uL LAB HEMATOLOGY METHOD 12/15/2024 5:49 PM EDT [facility] Lymphocytes Absolute 1.59 1.20 - 3.90 10*3/uL LAB HEMATOLOGY METHOD 12/15/2024 5:49 PM EDT [facility] Monocytes Absolute 0.46 0.30 - 0.90 10*3/uL LAB HEMATOLOGY METHOD 12/15/2024 5:49 PM EDT [facility] Eosinophils Absolute 0.18 0.00 - 0.50 10*3/uL LAB HEMATOLOGY METHOD 12/15/2024 5:49 PM EDT [facility] Basophils Absolute 0.06 0.00 - 0.10 10*3/uL LAB HEMATOLOGY METHOD 12/15/2024 5:49 PM EDT [facility] Immature Granulocytes Absolute 0.02 0.00 - 0.06 10*3/uL LAB HEMATOLOGY METHOD 12/15/2024 5:49 PM EDT [facility] Blood Venous blood specimen / Unknown Venipuncture / Unknown 12/15/2024 5:39 PM EDT 12/15/2024 5:41 PM EDT Narrative [facility] - 12/15/2024 5:49 PM EDT Therapeutic decision making should be based on absolute values, rather than percentages. us Aury ROLAND LAB BLOOD ORDERABLES Final Result [facility] [address] [place] [address] * (ABNORMAL) Comprehensive metabolic panel (12/15/2024 5:39 PM EDT) Glucose, Plasma 127(H) 74 - 99 mg/dL 12/15/2024 6:30 PM EDT [facility] BUN, Plasma 12 8 - 23 mg/dL 12/15/2024 6:30 PM EDT [facility] Creatinine, Plasma 0.79 0.60 - 1.10 mg/dL 12/15/2024 6:30 PM EDT [facility] BUN/Creatinine Ratio 15 12/15/2024 6:30 PM EDT [facility] Sodium, Plasma 140 136 - 145 mmol/L 12/15/2024 6:30 PM EDT [facility] Potassium, Plasma 4.3 3.6 - 4.9 mmol/L 12/15/2024 6:30 PM EDT [facility] Chloride, Plasma 106 97 - 107 mmol/L 12/15/2024 6:30 PM EDT [facility] CO2, Plasma 20(L) 22 - 29 mmol/L 12/15/2024 6:30 PM EDT [facility] Anion Gap 14 6 - 16 mmol/L 12/15/2024 6:30 PM EDT [facility] Total Calcium, Plasma 8.9 8.9 - 10.2 mg/dL 12/15/2024 6:30 PM EDT [facility] Total Protein 6.5 6.3 - 7.9 g/dL 12/15/2024 6:30 PM EDT [facility] Albumin, Plasma 4.2 3.5 - 5.2 g/dL 12/15/2024 6:30 PM EDT [facility] AST, Plasma 45(H) 10 - 35 U/L 12/15/2024 6:30 PM EDT [facility] ALT, Plasma 26 10 - 35 U/L 12/15/2024 6:30 PM EDT [facility] Alkaline Phosphatase, Plasma 53 46 - 142 U/L 12/15/2024 6:30 PM EDT [facility] Total Bilirubin, Plasma 0.8 0.2 - 1.1 mg/dL 12/15/2024 6:30 PM EDT [facility] eGFRcr 74.8 mL/min/1.7 3m*2 12/15/2024 6:30 PM EDT [facility] Comment:Reported eGFRcr in m L/min/1.73m2 is based the CKD-EPI 2020 equation that does not use a race coefficient. Blood Venous blood specimen / Unknown Venipuncture / Unknown 12/15/2024 5:39 PM EDT 12/15/2024 5:41 PM EDT us Aury ROLAND LAB BLOOD ORDERABLES Final Result [facility] [address] [place] [address] * XR Chest 2 Views (12/15/2024 4:26 [...] Angela Hughes MD on 12/15/2024 4:45 PM us Aury Rosanna Bell LUAN IMG XR PROCEDURES Final Res ult * CT THORACIC OUTSIDE IMAGES (12/14/2024 8:59 AM EDT) Anatomical Region Laterality Modality Computed Tomogra phy 12/14/2024 8:59 AM EDT us External Provider IMG CT PROCEDURES Edited Resul t - Final * US OUTSIDE IMAGES (12/14/2024 8:28 AM EDT) Only the most recent of2 resultswithin the time period is included. 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
--- OUTSIDE RECORDS SUMMARY | 2025-01-02 13:41 | XMS_ITS | Clinical Summary ---
Author Organization [facility] Address [address] [place] [id number] Phone Care Team Providers Care Assistant Counsel Name Role Phone Tim Bansal MD Unavailable [ ] Conditions or Problems Problem Name Problem Code Onset Date Status Entry Date Provider Comment Standard Description Annotate Benign Essential Hypertension 20655309 (SNOMED CT) Active Daxa Cee Benign hypertension C. Difficile colitis 450634723 (SNOMED CT) Active Daxa Cee Clostridium difficile colitis Medications Medication Instructions Start Date Stop Date Generic Name NDC Provider [facility] OMEPRAZOLE 20 MG TBEC QD OMEPRAZOLE [id number] Sharmila Marin ATENOLOL 50 MG TABS QD ATENOLOL [id number] Sharmila Marin VANCOCIN HCL 125 MG ORAL CAPSULE QID VANCOMYCIN HCL [id number] Sharmila Marin Medications Administered No information available. 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 Procedures No information available. Vital Signs No information available. Immunizations No information available. Advance Directives No information available.
--- OUTSIDE RECORDS SUMMARY | 2025-01-02 13:41 | XMS_ITS | Encounter Summary ---
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 Wish to be (Past 1 Month) No 025 8:00 AM EDT Shine Cantu, RN 2. Non-Specific Active Suici babs Thoughts (Past 1 Month) No 12/18/2024 8:00 AM EDT Tung Cantu RN 6. 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
--- NOTE | 2025-01-02 13:45 | CA_ITS ---
APPROVED REPORT EXAM: Limited 2D Echocardiogram Curriculum Counselor: Lolly Ambrosio CRT Ht: 5 ft 5 in Wt: 149lbs BSA: 1.75 BP: 126/58 mmHg Indications: pericardiocentesis on 12/15/24 at [facility] RVDd 2.27 cm (0.9-2.6) LA Diam 3.26 cm (1.9-4.0) LVDd 4.42 cm (3.5-5.7) LVDs 2.72 cm (3.5-5.7) IVSd 1.54 cm (0.6-1.1) PWd 0.61 cm (0.6-1.1) EF (Teich) 69.00% FS 38.50% EDV (Teich) 88.60 mL ESV (Teich) 27.50 mL Other Information Study Quality: Fair Conclusion This is a limited TTE to evaluate for pericardial effusion in the setting of recent pericardiocentesis. Limited windows are obtained. The left ventricle is normal in size. There is increased LV wall thickness. There is normal global LV systolic function. LVEF is 55%. There is trivial, anterior pericardial effusion present. No echo indications of tamponade. Compared to prior TTE from pre-pericardiocentesis on 12/13/2024, the size of the pericardial effusion is now significantly improved. Electronically signed by : Carol Laguerre MD 01/04/2025 12:50:03
== END 2025-01-02 23:59 | disposition home or self-care (01) ==
LOC: RT 13:38
PROVIDERS: PCP Internal Medicine Adolescent Medicine; Visit Provider Internal Medicine
DX: I31.39 Other pericardial effusion (noninflammatory) (principal); I51.7 Cardiomegaly; Z98.890 Other specified postprocedural states
CPT/HCPCS: 93308

== ENCOUNTER 2025-01-11 12:02 | Outpatient (CLI) | payer MEDICARE, SELFPAY ==
[2025-01-11 12:42] LABS: Hematocrit 41.4 % (37.0-47.0); Hemoglobin 13.1 g/dL (12.2-16.2); Immature Granulocytes % 0.2 %; Mean Corpuscular HGB Conc 31.6 g/dL (31.8-35.4); Mean Corpuscular Hemoglobin 30.7 pg (27.0-31.2); Mean Corpuscular Volume 97.0 fl (81-99); Nucleated Red Blood Cells % 0 %; Platelet Count 332 K/mm3 (142-424); Red Blood Count 4.27 M/mm3 (4.20-5.40); Red Cell Distribution Width-SD 51.4 fL; White Blood Count 6.6 K/mm3 (4.8-10.8)
[2025-01-11 13:34] LABS: Alanine Aminotransferase 26 U/L (12-78); Albumin Level 4.0 g/dl (3.5-5.0); Alkaline Phosphatase 58 U/L (38-126); Anion Gap 11.0 mEq/L (5-15); Aspartate Amino Transferase 33 U/L (14-36); Bilirubin,Direct 0.5 mg/dl (0.0-0.4); Bilirubin,Indirect 0.4 mg/dL (0.0-0.9); Bilirubin,Total 0.9 mg/dl (0.2-1.3); Bilirubin,Unconjugated 0.4 mg/dL (0.0-1.1); Blood Urea Nitrogen 14 mg/dl (7-17); Calcium 9.3 mg/dl (8.4-10.2); Carbon Dioxide 30 mmol/L (22.0-30.0); Chloride 103 mmol/L (98-107); Cholesterol 147 mg/dl (140-200); Creatinine,Serum 0.90 mg/dl (0.52-1.04); Estimated Glomerular Filt Rate 60 ml/min (>60); GFR (African American) 73 ML/MIN (>60); Glucose 62 mg/dl (74-100); HDL Cholesterol 66 mg/dl (40-60); Magnesium 1.9 mg/dl (1.6-2.3); Potassium 5.0 mmoL/L (3.5-5.1); Sodium 139 mmol/L (136-145); Total Protein,Serum 6.1 g/dl (6.3-8.2); Triglycerides 72 mg/dl (30-150)
[2025-01-11 13:37] LABS: Free T4 (Free Thyroxine) 1.00 ng/dl (0.78-2.19)
[2025-01-11 23:30] LABS: Thyroid Stimulating Hormone 1.27 uIU/mL (0.465-4.68)
== END 2025-01-11 23:59 | disposition home or self-care (01) ==
LOC: LAB 12:03
PROVIDERS: PCP Internal Medicine Adolescent Medicine; Visit Provider Internal Medicine
DX: I25.10 Atherosclerotic heart disease of native coronary artery without angina pectoris (principal); I11.9 Hypertensive heart disease without heart failure; E78.5 Hyperlipidemia, unspecified
CPT/HCPCS: 36415; 80048; 80061; 80076; 83735; 84439; 84443; 85025